=== PATIENT | female | born 1955 | race Hispanic/Latino ===

== ENCOUNTER 2016-11-10 15:07 | Inpatient (IN) | payer MEDICARE ==
[2016-11-10 15:14] VITALS: BMI 26.2
[2016-11-10] MEDS ORDERED: Morphine 4 mg/ml ISec IVP STA ×2 (15:53→17:51)
[2016-11-10] MEDS ORDERED: Sodium Chloride 0.9% 1,000 ML IV STA (15:53)
--- NOTE | 2016-11-10 15:59 | ED PDOC ---
Arrival/HPI - General Chief Complaint: Abdominal Pain Time Seen by Provider: 11/10/16 15:33 - History of Present Illness Narrative History of Present Illness (Text): 61 y/o F c PMHx MS, appendectomy, cholecystectomy, pancreatitis p/w abdominal pain x 1 day. Pain is epigastric/LUQ to L flank, severe, constant, radiating to L sided chest and back, associated with nausea. She states it does feel similar to previous pancreatitis. 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 She denies fever, vomiting, dyspnea, dysuria. Attempted Zantac and soda at home. She states that this is not her MS pain. 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 - Renal Hx Renal Disorder: No - Endocrine/Metabolic Hx Endocrine Disorders: No - Hematological/Oncological Hx Blood Transfusions: Yes Hx Blood Transfusion Reaction: No - Integumentary Hx Dermatological Disorder: No - Musculoskeletal/Rheumatological Hx Musculoskeletal Disorders: Yes Hx Back Pain: Yes - Gastrointestinal Hx Gastrointestinal Disorders: Yes Hx Pancreatitis: Yes (x3-4) Other/Comment: polyps removed. - Psychiatric Hx Emotional Abuse: No Hx Physical Abuse: No Hx Substance Use: No - Surgical History Hx Appendectomy: Yes Hx Cholecystectomy: Yes Other/Comment: polyps removed from stomach/intestines as per pt. - Anesthesia Hx Anesthesia: Yes Hx Anesthesia Reactions: No - Suicidal Assessment Feels Threatened In Home Enviroment: No Family/Social History Family/Social History: No Known Family HX Smoking Status: Former Smoker Hx Alcohol Use: No Hx Substance Use: No Allergies/Home Meds Allergies/Adverse Reactions: Allergies codeine Allergy (Verified 11/10/16 15:34) NAUSEA Penicillins Allergy (Verified 11/10/16 15:34) SWELLING Sulfa (Sulfonamide Antibiotics) Allergy (Verified 11/10/16 15:34) RASH Home Medications: Home Meds Medication Instructions Recorded Confirmed Calcitriol [Rocaltrol] 0.25 mcg PO DAILY 01/26/16 11/10/16 Cholecalciferol (Vitamin D3) 1 cap PO SAT 01/26/16 11/10/16 [Vitamin D3] Citalopram Hydrobromide [Celexa] 20 mg PO DAILY 01/26/16 11/10/16 Cyanocobalamin [Vitamin B12 1000 1,000 mcg PO DAILY 01/26/16 11/10/16 mcg Tab] Dextroamphetamine/Amphetamine 20 mg PO DAILY 01/26/16 11/10/16 [Adderall 20 mg Tablet] Iron Sucrose [Venofer] 100 mg IV Q7D 01/26/16 11/10/16 Lactobacillus Combination No.8 1 cap PO BID 01/26/16 11/10/16 [Adult Probiotic] Ranitidine HCl [Zantac] 150 mg PO DAILY 01/26/16 11/10/16 busPIRone [Buspar] 5 mg PO BID 01/26/16 11/10/16 oxyCODONE [oxyCONTIN Extended 40 mg PO BID 01/26/16 11/10/16 Release Tab] Polyethylene Glycol 3350 [Miralax] 1 pkt PO BID 01/28/16 11/10/16 oxyCODONE/Acetaminophen [Percocet 1 tab PO PRN PRN 11/10/16 11/10/16 5/325 mg Tab] Review of Systems - Physician Review All systems were reviewed & negative as marked: Yes - Review of Systems Constitutional: absent: Fevers Respiratory: absent: SOB Physical Exam - Physical Exam Narrative Physical Exam (Text): Constitutional: In acute distress secondary to pain. Head: Normocephalic. Atraumatic. Eyes: PERRL. ENT: Moist mucous membranes. Neck: Supple. Cardiovascular: Regular rate. Chest: No tenderness. Respiratory: Clear to auscultation bilaterally. GI: Soft. Epigastric/LUQ tenderness. Nondistended. No rebound. Back: No CVA tenderness. No midline tenderness. Musculoskeletal: No tenderness or swelling of extremities. Skin: No rash. Neurologic: Alert, no focal deficit. Vital Signs Temp Pulse Resp BP Pulse Ox 11/10/16 18:05 80 18 159/91 H 100 11/10/16 16:43 69 18 148/89 100 11/10/16 15:07 99.2 F 73 18 151/93 H 100 Medical Decision Making ED Course and Treatment: EKG NSR 77 bpm, no ST elevations, no T wave inversions. Will administer morphine (patient states no allergy), Zofran, IVF. Check labs, CT to assess for pancreatitis. Unlikely cardiac in origin. PMD [place]. 11/10/16 17:52 Continues to have pain. Morphine administered. Labs unremarkable. Pending CT. 11/10/16 18:42 IMPRESSION: 13 x 6.6 mm obstructing stone at the left ureteropelvic junction; cholecystectomy with dilated intra-and extrahepatic biliary ducts; constipation, fecalization of the distal and terminal ileum suggests a degree of obstruction secondary to constipation; possible enterocolitis Will trial toradol, 2 doses of morphine administered. This stone will not pass at this size. Patient with intractible pain. Dr. Onofre accepts patient to medical service. Dr. Bhatti accepts patient for consult. - Lab Interpretations Lab Results: 11/10/16 16:00 11/10/16 16:00 Lab Results 11/10/16 17:19: Urine Color Yellow, Urine Appearance Clear, Urine pH 6.0, Ur Specific Gem 1.015, Urine Protein Negative, Urine Glucose (UA) Negative, Urine Ketones Negative, Urine Blood Negative, Urine Nitrate Negative, Urine Bilirubin Negative, Urine Urobilinogen 0.2, Ur Leukocyte Esterase Negative 11/10/16 16:00: WBC 6.8, RBC 3.51, Hgb 10.5 L, Hct 32.1 L, MCV 91.5, MCH 29.9, MCHC 32.7, RDW 13.6, Plt Count 169, MPV 9.8, Gran % 90.3 H, Lymph % (Auto) 6.7 L , [place] % (Auto) 2.5, Eos % (Auto) 0.4 L, Baso % (Auto) 0.1, Gran # 6.15, Lymph # 0.5 L, [place] # 0.2, Eos # 0.0, Baso # 0.01 11/10/16 16:00: Sodium 135, Potassium 3.3 L, Chloride 101, Carbon Dioxide 25, Anion Gap 12, BUN 18, Creatinine 0.9, Est GFR ( Amer) > 60, Est GFR (Non- Af Amer) > 60, Random Glucose 115 H, Calcium 8.3 L, Total Bilirubin 0.6, AST 65 H, ALT 67 H, Alkaline Phosphatase 78, Lactate Dehydrogenase 573, Total Creatine Kinase 88, Troponin I < 0.01, Total Protein 6.0, Albumin 3.1, Globulin 2.9, Albumin/Globulin Ratio 1.1, Lipase 83 - RAD Interpretation Radiology Orders: 11/10/16 15:53 ABD & PELVIS IV CONTRAST ONLY [CT] Stat CHEST PORTABLE [RAD] Stat - Medication Orders Current Medication Orders: Discontinued Medications Sodium Chloride (Sodium Chloride 0.9%) 1,000 mls @ 999 mls/hr IV .Q1H1M STA Stop: 11/10/16 16:53 Last Admin: 11/10/16 16:05 Dose: 999 mls/hr Iohexol (Omnipaque 350 100 Ml) Confirm Administered Dose 350 mg .ROUTE .STK-MED ONE Stop: 11/10/16 17:29 Ketorolac Tromethamine (Toradol) 30 mg IVP STAT STA Stop: 11/10/16 18:51 Morphine Sulfate (Morphine) 4 mg IVP STAT STA Stop: 11/10/16 15:54 Last Admin: 11/10/16 16:08 Dose: 4 mg Morphine Sulfate (Morphine) 4 mg IVP STAT STA Stop: 11/10/16 17:52 Last Admin: 11/10/16 17:56 Dose: 4 mg Ondansetron HCl (Zofran Inj) 8 mg IVP STAT STA Stop: 11/10/16 15:54 Last Admin: 11/10/16 16:08 Dose: 8 mg Disposition/Present on Arrival - Present on Arrival Any Indicators Present on Arrival: No History of DVT/PE: No History of Uncontrolled Diabetes: No Urinary Catheter: No History of Decub. Ulcer: No History Surgical Site Infection Following: None - Disposition Have Diagnosis and Disposition been Completed?: Yes Diagnosis: Nephrolithiasis, Intractable pain Disposition: HOSPITALIZED Disposition Time: 18:42 Patient Plan: Admission Condition: FAIR Referrals: Brittany Wolff MD [Primary Care Provider] - Follow up with primary
[2016-11-10 16:10] LABS: ADD MANUAL DIFF? NO
[2016-11-10 16:28] LABS: BASO # 0.01 K/mm3 (0.0-2.0); BASO % 0.1 % (0.0-3.0); EOS % 0.4 % (1.5-5.0); GRAN # 6.15 (1.4-6.5); GRAN % 90.3 % (50.0-68.0); HEMATOCRIT 32.1 % (36.0-48.0); LYMPH # 0.5 (1.2-3.4); LYMPH % 6.7 % (22.0-35.0); MEAN CELL VOLUME 91.5 fL (80.0-105.0); MEAN CORPUSCULAR HEMOGLOBIN 29.9 pg (25.0-35.0); MEAN CORPUSCULAR HGB CONC 32.7 g/dl (31.0-37.0); MEAN PLATELET VOLUME 9.8 fl (7.0-11.0); MONO # 0.2 (0.1-0.6); MONO % 2.5 % (1.0-6.0); PLATELET COUNT 169 10^3/uL (120.0-450.0); RED CELL DISTRIBUTION WIDTH 13.6 % (11.5-14.5); WHITE BLOOD COUNT 6.8 10^3/ul (4.5-11.0)
[2016-11-10 16:41] LABS: ALB/GLOB RATIO 1.1 (1.1-1.8); ALKALINE PHOSPHATASE 78 U/L (38-133); ALT/SGPT 67 U/L (7-56); AST/SGOT 65 U/L (15-39); BILIRUBIN,TOTAL 0.6 mg/dL (0.2-1.3); BLOOD UREA NITROGEN 18 mg/dL (7-21); CALCIUM 8.3 mg/dL (8.4-10.5); CARBON DIOXIDE 25 mmol/L (21-33); CHLORIDE 101 mmol/L (98-107); GFR AFRICAN-AMERICAN > 60; GLUCOSE,RANDOM 115 mg/dL (70-110); LIPASE 83 U/L (23-300); POTASSIUM 3.3 mmol/L (3.6-5.0); SODIUM 135 mmol/L (132-148)
[2016-11-10 16:52] LABS: TROPONIN I < 0.01 ng/mL
[2016-11-10 17:25] LABS: URINE BILIRUBIN NEGATIVE (NEGATIVE); URINE BLOOD NEGATIVE (NEGATIVE); URINE GLUCOSE (UA) NEGATIVE (NEGATIVE); URINE KETONE NEGATIVE (NEGATIVE); URINE LEUKOCYTE ESTERASE NEGATIVE Leu/uL (NEGATIVE); URINE PROTEIN NEGATIVE mg/dL (<30 mg/dL); URINE UROBILINOGEN 0.2 E.U./dL (<1 E.U./dL)
[2016-11-10] MEDS ORDERED: Iohexol 350 MG/100 ML VIAL ONE (17:28)
[2016-11-10 17:32] LABS: URINE APPEARANCE CLEAR (CLEAR); URINE COLOR YELLOW (YELLOW)
--- NOTE | 2016-11-10 18:42 | CT ---
EXAM: CT Abdomen and Pelvis With Intravenous Contrast CLINICAL HISTORY: 61 years old, female; Pain; Abdominal pain; Flank; Left; Prior surgery; Surgery date: 6+ months; Surgery type: 2 bc-sections. Ap, gb, tubal ligation, colon resection; Additional info: Epigastric/luq pain, nausea TECHNIQUE: Axial computed tomography images of the abdomen and pelvis with intravenous contrast. This CT exam was performed using one or more of the following dose reduction techniques: automated exposure control, adjustment of the mA and/or kV according to patient size, and/or use of iterative reconstruction technique. Coronal and sagittal reformatted images were created and reviewed. CONTRAST: 95 mL of omni 350 administered intravenously. EXAM DATE/TIME: 11/10/2016 3:53 PM COMPARISON: There are no prior studies for comparison. FINDINGS: Lower thorax: unremarkable ABDOMEN: Liver: There is fatty infiltration of the liver. Gallbladder and bile ducts: Gallbladder is absent. The common bile duct is mildly dilated. There is mild intrahepatic biliary ductal dilatation Pancreas: Pancreas is mildly atrophic. Spleen: unremarkable Adrenals: Adrenals are unremarkable. Kidneys and ureters: Right kidney and ureter are unremarkable. There is a left renal cyst. There is a small low attenuation left upper pole renal lesion too small to characterize. There is obstructive uropathy on the left there is a 13 x 6.6 mm obstructing stone at the left ureteropelvic junction. Left ureter is normal in caliber. Stomach and bowel: Stomach is partially distended. Rotation is normal. Proximal small bowel is mildly distended with fluid. There are mildly dilated small bowel loops in the left mid abdomen with wall thickening. There is fecalization distal and terminal ileum. There is a very large amount of stool throughout the colon. There is a sigmoid colon anastomosis. There is rectal wall thickening. Appendix: See stomach and bowel PELVIS: Bladder: Urinary bladder is partially distended. Reproductive: Uterus is normal in size. There is a small enhancing nodule in the myometrium. Adnexa are unremarkable. ABDOMEN and PELVIS: Intraperitoneal space: There is no free air or free fluid. Bones/joints: Bony structures are osteopenic. There are degenerative changes Soft tissues: unremarkable Vasculature: Vascular structures are unremarkable. Lymph nodes: There is no pathologic adenopathy. Other findings: There are surgical clips in the epigastric region. IMPRESSION: 13 x 6.6 mm obstructing stone at the left ureteropelvic junction; cholecystectomy with dilated intra-and extrahepatic biliary ducts; constipation, fecalization of the distal and terminal ileum suggests a degree of obstruction secondary to constipation; possible enterocolitis Additional findings as described above.
[2016-11-10] MEDS ORDERED: Magnesium Citrate Oral SOL (300 ml) PO ONE (18:57)
[2016-11-10] MEDS ORDERED: HYDROmorphone 2 mg/ml ISec IVP PRN (18:57)
[2016-11-10] MEDS: Dextrose 5%/0.45% NS 1,000 ML IV SCH (19:19)
[2016-11-10 19:23] LABS: CHOLESTEROL 123 mg/dL (130-200)
--- NOTE | 2016-11-10 20:58 | HP ---
HISTORY OF PRESENT ILLNESS: The patient is a 61-year-old patient of who came to Emergency Room because of abdominal pain, more so in the left flank, radiating towards the left upper and left lower quadrant area. Pain is severe in intensity, radiating to the left side of the chest and going towards the back and right and left lower quadrant. She complained of feeling nauseous with decrease d appetite. The patient has a history of pancreatitis in the past, but she states this pain is diffe rent than that she had when she had pancreatitis. She denies any fever or chills. No history of hem aturia, does have increased frequency of urination. The patient states this pain started since last night. She tried to take Zantac with and took with no significant relief. PAST MEDICAL HISTORY: Is significant for: 1. Hypertension. 2. Multiple sclerosis. 3. 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 SURGICAL HISTORY: Significant for 1. Cholecystectomy and appendectomy in the remote past. 2. History of pancreatitis. ALLERGIES: SHE IS ALLERGIC TO CODEINE, PENICILLIN AND SULFA. MEDICATIONS AT HOME: She is on Percocet as needed and oxycodone. She is BuSpar. She is getting [place] tac and some MiraLAX. She takes Adderall once in a while and she is on Celexa 20 mg daily and vitami n D. SOCIAL HISTORY: She was a heavy smoker, but quit almost 20 years ago. Denies alcohol use. REVIEW OF SYSTEMS: Significant for discomfort in the left flank radiating to the left upper and lowe r quadrant area. PHYSICAL EXAMINATION: GENERAL: She is not in acute distress; however, looks uncomfortable. VITAL SIGNS: She is afebrile, pulse 73, respirations 18 and blood pressure 150/93. LUNGS: Bilateral fair airflow with no rhonchi or crackle. HEART: S1, S2 audible. No murmur. ABDOMEN: Soft. She has left costophrenic angle discomfort and left upper quadrant discomfort. NEUROLOGIC: She is awake, alert and communicative. LABORATORY DATA: WBC 6.8, hemoglobin , hematocrit 32.1 and platelets of 169. Chemistry: Sodiu m 135, potassium 3.3, chloride 101, CO2 25, BUN 18, creatinine 0.9, blood sugar of 115, calcium 8.3, AST 65 and ALT 67. Urinalysis is unremarkable. She had CT scan of the abdomen and pelvis done that shows she has 13 to 6.6 mm obstructing stone at t he left ureteropelvic junction, status post cholecystectomy and she also had dilated infra and extrah epatic biliary duct along with constipation and of distal suggesting a degree of obstruct ion secondary to constipation. ASSESSMENT: 1. Renal colic. 2. Constipation. 3. Multiple sclerosis. PLAN: Will keep patient n.p.o. for now and will keep her on her usual psych medication. Will keep h er on IV fluid, PPI and gentle hydration and Dr. Sheridan and Dr. Elise for consult. Rad Onofre MD cc: [phone] TT: 11/10/2016 20:58:14 sn
--- NOTE | 2016-11-10 22:22 | CARD ---
APPROVED REPORT EKG Measurement Heart [id number] MS [id number] <Conclusion> Normal sinus rhythm ST abnormality, possible digitalis effect Abnormal ECG
--- NOTE | 2016-11-11 08:40 | RAD ---
HISTORY: chest/L lateral rib pain COMPARISON: No prior. FINDINGS: LUNGS: No active pulmonary disease. PLEURA: No significant pleural effusion identified, no pneumothorax apparent. CARDIOVASCULAR: Mild cardiomegaly OSSEOUS STRUCTURES: No significant abnormalities. VISUALIZED UPPER ABDOMEN: Normal. OTHER FINDINGS: None. IMPRESSION: No active disease.
[2016-11-11] MEDS ORDERED: POLYETHYLENE GLYCOL 3350 17 GM/Dose PACKET PO SCH (10:00)
[2016-11-11] MEDS ORDERED: cefTRIAXone 1 gm 1 GM/100 ML BAG IVPB ONE (10:32)
[2016-11-11] MEDS ORDERED: HYDROmorphone 1 mg/ml ISec ONE (10:38)
[2016-11-11] MEDS ORDERED: Meropenem 1g/NS 100mL IVPB 1 GM/100 ML PIGGYBACK IVPB ONE (11:43)
[2016-11-11] MEDS ORDERED: Propofol 10 mg/ml Inj (20 ML) ONE (15:17)
[2016-11-11] MEDS ORDERED: Midazolam 2 MG/2 ML VIAL ONE (15:17)
[2016-11-11] MEDS ORDERED: Iohexol 240 (50 ml) ONE (15:18)
[2016-11-11] MEDS ORDERED: Gentamicin 80 mg/2mL Inj. ONE (15:34)
[2016-11-11] MEDS ORDERED: Ciprofloxacin 400mg/200ml D5W 400 MG/200 ML BAG IVPB ONE (15:41)
[2016-11-11] MEDS ORDERED: Phenylephrine 10 mg/ml Inj ONE (15:49)
[2016-11-11] MEDS ORDERED: ePHEDrine 50 mg/ml Inj ONE (16:02)
--- NOTE | 2016-11-11 18:22 | CON ---
DATE: 11/11/2016 REFERRING PHYSICIAN: Dr. Onofre. REASON FOR CONSULTATION: Possible sepsis. HISTORY OF PRESENT ILLNESS: We have a 61-year-old female with past medical history of chronic back pa in, history of pancreatitis, history of multiple sclerosis, who was sent in because of increasing lef t flank pain with radiation to the groin area associated with subjective fevers and chills for the pa st 3-4 days, worsening yesterday. As per patient, she has never had these symptoms before and this is the first time she is having them. Aside from fevers and chills, she was complaining of some nausea but no vomiting. She denies diarrhea and abdominal pain. She denies chest pain. No rhinorrhea or coug h. No shortness of breath. No sore throat. No dysphagia. No odynophagia. No diarrhea. No note of damian turia as well as dysuria. In the ED, when the patient presented she was found to have a fever as well as on imaging there was an obstructive stone found on the left side. Therefore, the patient was admi tted. Because of the fevers, infectious disease consult was requested to evaluate and manage. REVIEW OF SYSTEMS: As per history of present illness. PAST MEDICAL HISTORY: As per history of present illness. FAMILY MEDICAL HISTORY: Noncontributory. PERSONAL AND SOCIAL HISTORY: No smoking. No alcohol abuse. No illicit drug use. OBJECTIVE: VITAL SIGNS: The patient has a temperature of 109 degrees Fahrenheit, heart rate of 110, respiratory rate of 20, blood pressure 107/64. HEAD AND NECK: Normocephalic, atraumatic. CONSTITUTIONAL: The patient feels weak and fatigued and looks ill. CHEST: Decreased breath sounds bilaterally. No rales noted. HEART: S1 and S2 are normal. ABDOMEN: Soft, nontender, nondistended. FLANKS: There is positive CVA tenderness noted on the left flank. LABORATORIES: Unfortunately, we are unable to review the current labs of the patient because the comp uter systems and the EMR are down. ASSESSMENT: We have a 61-year-old female with past medical history of multiple sclerosis, chronic hema k pain, history of pancreatitis, coming in with possible sepsis due to urinary tract infection, which is on the upper tract, which is probably pyelonephritis, probably due to obstructive uropathy with a stone. PLAN: The patient was started on Rocephin but because the patient looks very ill, we have upgraded th e antibiotics to meropenem pending urine cultures and blood cultures and plan of urology for the ston e. We will follow up these results and make further recommendations based on these results. Nikos Chacon M.D. cc: [id number] TT: 11/11/2016 18:21:35 Confirmation # [id number] Dictation # [id number] ln
[2016-11-11] MEDS ORDERED: Meropenem 1g/NS 100mL IVPB 1 GM/100 ML PIGGYBACK IVPB SCH (22:00)
--- NOTE | 2016-11-11 22:10 | RAD ---
HISTORY: COMPARISON: No prior. FINDINGS: LUNGS: No active pulmonary disease. PLEURA: No significant pleural effusion identified, no pneumothorax apparent. CARDIOVASCULAR: Normal. OSSEOUS STRUCTURES: No significant abnormalities. VISUALIZED UPPER ABDOMEN: Normal. OTHER FINDINGS: None. IMPRESSION: No active disease.
[2016-11-12] MEDS ORDERED: Peg-Electrolyte Oral Soln 4L (Golytely) PO ONE (07:28)
--- NOTE | 2016-11-12 08:17 | CON ---
DATE: 11/11/2016 REQUESTING PHYSICIAN: Dr. Onofre. REASON FOR CONSULTATION: I have been asked to see this 61-year-old female with a history of multiple sclerosis, chronic back pain, chronic abdominal pain, who has been experiencing left flank pain radi ating to the left lower quadrant for 1 year. The patient states that this pain has become increasing ly severe over the last several days, prompting her to come to the Emergency Room. She denies any na usea, vomiting, rectal bleeding, melena. She does admit to some fevers and chills. In the Emergency Room, a CT scan of the abdomen and pelvis was performed and revealed a large left ureteropelvic ston e. She denies any hematuria. PAST MEDICAL HISTORY: Again, is notable for chronic back pain, multiple sclerosis, chronic abdominal pain. SOCIAL HISTORY: She denies cigarette smoking or alcohol use. FAMILY HISTORY: Noncontributory. REVIEW OF SYSTEMS: A 14-point review of systems is notable for chronic left flank pain, as well as l eft lower quadrant abdominal pain. PHYSICAL EXAMINATION: GENERAL: Well-developed female lying in bed in no acute distress. VITAL SIGNS: Temperature of 99.2, blood pressure 122/71, heart rate of 96. HEENT: Reveal sclerae to be white, conjunctivae pink. NECK: Supple. CHEST: Reveals lungs to be clear. HEART: Reveals regular rate and rhythm. ABDOMEN: Soft. There is mild to moderate tenderness in the left flank and left lower quadrant. No visible rashes seen. There is no palpable mass. EXTREMITIES: Show no edema. LABORATORY DATA: Reveal potassium of 3.3, otherwise normal electrolytes, AST 65, ALT 67. CBC reveal s white blood cell count 6.8, hemoglobin 10.5. CT scan of the abdomen and pelvis again shows a large left ureteropelvic stone, as well as a large amount of stool throughout the colon with some fecaliza tion of the distal small bowel. There is also some nonspecific dilatation of the small bowel loops. The gallbladder is absent from previous surgery with mildly dilated CBD and intrahepatic biliary colin ts, as well as fatty liver. IMPRESSION: A 61-year-old female with chronic low back pain, history of multiple sclerosis, with chr onic left flank pain and left lower quadrant abdominal pain with an obstructing large stone in the le ft ureteropelvic junction, as well as large amounts of stool throughout the colon, as well as fecaliz ation of the small bowel. RECOMMENDATIONS: 1. Will increase her MiraLax to 17 grams p.o. 3 times a day. 2. Urology evaluation for treatment of an obstructing kidney stone. 3. Elective colonoscopy once the patient gets cleaned out in terms of treatment of her severe consti pation. Omid Sheridan MD cc: [phone] TT: 11/12/2016 00:48:28 Confirmation # [id number] Dictation # [id number] mn
--- NOTE | 2016-11-12 08:27 | PN ---
DATE: 11/12/2016 SUBJECTIVE: The patient states that her abdominal pain is less. Despite receiving 10 ounces of citr ate of magnesia and 17 grams of MiraLax yesterday, she did not have a bowel movement. Her CT scan of the abdomen showed large amounts of stool throughout the colon as well as terminal small bowel. She has severe opioid-induced constipation. I suspect that this is causing some of her abdominal pain. She also has a left obstructing ureteropelvic stone. PHYSICAL EXAMINATION: VITAL SIGNS: Reveal temperature of 99, blood pressure 115/69, heart rate 94. HEENT: Revealed oral mucosa to be moist. NECK: Supple. CHEST: Reveals lungs to be clear. HEART: Reveals regular rate and rhythm. ABDOMEN: Soft, less left-sided tenderness. No rebound, no guarding. EXTREMITIES: Show no edema. LABORATORY DATA: Reveal no new labs. IMPRESSION: A 61-year-old female with chronic back pain, chronic abdominal pain, known multiple scle rosis with large amounts of stool throughout the colon on CAT scan. She is on clinical services consultant opiates for chronic back pain. She has opioid-induced constipation. RECOMMENDATIONS: 1. I will give the patient a half gallon of [employer] acquired by [employer] today. 2. Continue MiraLax 17 grams 3 times a day. 3. Dulcolax once a day. Omid Roge Sheridan MD cc: [phone] TT: 11/12/2016 08:26:12 Confirmation # [id number] Dictation # [id number] en
[2016-11-12 09:33] LABS: INR 1.32 (0.93-1.08)
[2016-11-12] MEDS ORDERED: cefTRIAXone 1 gm 1 GM/100 ML BAG IVPB SCH (10:00)
[2016-11-12] MEDS: Meropenem 1g/NS 100mL IVPB 1 GM/100 ML PIGGYBACK IVPB SCH ×2 (10:16→21:57)
[2016-11-12] MEDS: POLYETHYLENE GLYCOL 3350 17 GM/Dose PACKET PO SCH ×3 (10:17→17:31)
[2016-11-12 10:57] LABS: ALB/GLOB RATIO 0.9 (1.1-1.8); ALKALINE PHOSPHATASE 85 U/L (38-133); ALT/SGPT 78 U/L (7-56); AST/SGOT 135 U/L (15-39); BILIRUBIN,TOTAL 0.6 mg/dL (0.2-1.3); BLOOD UREA NITROGEN 19 mg/dL (7-21); CALCIUM 7.7 mg/dL (8.4-10.5); CARBON DIOXIDE 30 mmol/L (21-33); CHLORIDE 99 mmol/L (95-110); GFR AFRICAN-AMERICAN > 60; GLUCOSE,RANDOM 105 mg/dL (70-110); POTASSIUM 4.1 mmol/L (3.6-5.0); SODIUM 136 mmol/L (132-148); TOTAL PROTEIN 5.4 g/dL (5.8-8.3)
[2016-11-12] MEDS: Bisacodyl 5mg EC Tab PO SCH (11:58)
[2016-11-12 12:33] LABS: MEAN CELL VOLUME 91.2 fL (80.0-105.0); MEAN CORPUSCULAR HGB CONC 32.9 g/dl (31.0-37.0); MEAN PLATELET VOLUME 10.2 fl (7.0-11.0); RED CELL DISTRIBUTION WIDTH 14.2 % (11.5-14.5); WHITE BLOOD COUNT 13.3 10^3/ul (4.5-11.0)
--- NOTE | 2016-11-12 13:40 | RAD ---
PROCEDURE: Fluoroscopy up to 1 hour HISTORY: BILATERAL RETROGRADE / LEFT STENT INSERTION COMPARISON: TECHNIQUE: Fluoroscopy was provided in the operating room. 38 seconds of fluoroscopy time were utilized. Sixteen images were obtained. FINDINGS: The study was performed by Dr. Jareth Bhatti. Bilateral retrograde pyelograms. There is placement of a left ureteral stent. The right renal collecting system is unremarkable. IMPRESSION: As above
[2016-11-12 15:46] VITALS: RESP 20
[2016-11-12] MEDS: Dextrose 5%/0.45% NS 1,000 ML IV SCH (17:32)
--- NOTE | 2016-11-12 21:04 | PN ---
DATE: 11/12/2016 SUBJECTIVE: The patient has no complaints of any chest pain, no shortness of breath, no headaches. She says her pain is controlled after she had a stent placed. PHYSICAL EXAMINATION: VITAL SIGNS: Temperature is 98.2, pulse is 74, blood pressure is 111/72, respirations 20. GENERAL: The patient comfortable, in no acute distress. HEENT: Anicteric sclerae. Moist mucosa. NECK: No JVD or adenopathy. CARDIAC: S1/S2. No murmurs. No rubs. Regular. RESPIRATORY: Clear to auscultation bilaterally. No wheezes, rales, or rhonchi. Good air entry. ABDOMEN: Bowel sounds are positive, soft, nontender, and nondistended. EXTREMITIES: No edema. Has 1+ pulses. LABS: White count of 13.3, hemoglobin is 10.2, creatinine is 1.1. ASSESSMENT: 1. Nephrolithiasis, left ureteral stent placement. 2. Multiple sclerosis. 3. Chronic back pain. 4. Hypertension. 5. Urinary tract infection with gram-negative rods. 6. Sepsis. 7. Transaminitis. PLAN: The patient is currently comfortable. She is receiving BuSpar. She is on Celexa for her anxi ety. She is on IV fluids with D5 half normal saline. She is eating and drinking. At this point, I will discontinue the patient's IV fluids. The patient is receiving meropenem for antibiotics by Dr. Chacon. She is on Protonix. The patient has gram-negative rods in her urine. The patient is on Dilau did for pain. She is on Zofran. We will repeat the patient's blood work tomorrow. She is being fol lowed by urology, Dr. Bhatti. Eric Wasserman MD cc: [id number] TT: 11/12/2016 21:03:56 Confirmation # [id number] Dictation # [id number] yazmin
--- NOTE | 2016-11-12 22:23 | CP.PCM.PN ---
Subjective - Date & Time of Evaluation Date of Evaluation: 11/12/16 Time of Evaluation: 10:20 - Subjective Subjective: Comfortable, no fevers overnight, had stent placement yesterday into the left ureter. Objective - Vital Signs/Intake and Output Vital Signs (last 24 hours): Temp Pulse Resp BP Pulse Ox 98.2 F 74 20 111/72 97 11/12/16 15:46 11/12/16 15:46 11/12/16 15:46 11/12/16 15:46 11/12/16 15:46 Intake and Output: 11/12/16 11/13/16 18:59 06:59 Intake Total 680 540 Balance 680 540 - Medications Medications: Current Medications Acetaminophen (Tylenol 325mg Tab) 650 mg PO Q6H PRN PRN Reason: Fever >100.4 F Last Admin: 11/12/16 10:34 Dose: 650 mg Bisacodyl (Dulcolax) 5 mg PO ACL [facility] Last Admin: 11/12/16 11:58 Dose: 5 mg Buspirone HCl (Buspar) 5 mg PO BID [facility] PRN Reason: Protocol Last Admin: 11/12/16 17:31 Dose: 5 mg Citalopram Hydrobromide (Celexa) 20 mg PO DAILY [facility] Last Admin: 11/12/16 10:15 Dose: 20 mg Hydromorphone HCl (Dilaudid) 2 mg IVP Q4H PRN PRN Reason: Pain, moderate (4-7) Last Admin: 11/12/16 03:46 Dose: 2 mg Meropenem 1g/NS 100mL IVPB (Meropenem 1g/Ns 100ml Ivpb) 1 gm in 100 mls @ 100 mls/hr IVPB Q12 [facility] PRN Reason: Protocol Stop: 11/19/16 10:01 Last Admin: 11/12/16 21:57 Dose: 100 mls/hr Ondansetron HCl (Zofran Inj) 4 mg IVP Q6H PRN PRN Reason: Nausea/Vomiting Pantoprazole Sodium (Protonix Inj) 40 mg IVP DAILY [facility] Last Admin: 11/12/16 10:17 Dose: 40 mg Polyethylene Glycol (Miralax) 17 gm PO TID [facility] Last Admin: 11/12/16 17:31 Dose: 17 gm - Labs Labs: 11/11/16 07:00 11/11/16 07:00 PT 14.3 Seconds (9.9-11.8) H 11/11/16 07:00 INR 1.32 (0.93-1.08) H 11/11/16 07:00 - Constitutional Appears: Non-toxic, No Acute Distress - Head Exam Head Exam: NORMAL INSPECTION - Neck Exam Neck Exam: absent: Lymphadenopathy, Meningismus - Respiratory Exam Respiratory Exam: Decreased Breath Sounds - Cardiovascular Exam Cardiovascular Exam: +S1, +S2 - GI/Abdominal Exam GI & Abdominal Exam: Soft. absent: Tenderness Assessment and Plan - Assessment and Plan (Free Text) Plan: Assessment Consider upper urinary tract infection with gram negative bacilli associated with nephrolithiasis, S/P left ureter stent placement POD #1 multiple sclerosis S/P appendectomy S/P cholecystectomy history of pancreatitis Plan Continue merrem (Day 2) pending identification and sensitivities of the gram negative bacilli in the urine Will monitor clinically
--- NOTE | 2016-11-12 23:06 | CARD ---
APPROVED REPORT EKG Measurement Heart [id number] <Conclusion> Normal sinus rhythm Minimal voltage criteria for LVH, may be normal variant Inferior infarct, age undetermined Cannot rule out Anterior infarct, age undetermined Abnormal ECG
[2016-11-13 07:28] LABS: ADD MANUAL DIFF? NO
[2016-11-13 07:33] LABS: BASO # 0.01 K/mm3 (0.0-2.0); BASO % 0.1 % (0.0-3.0); EOS # 0.1 (0.0-0.7); EOS % 1.3 % (1.5-5.0); GRAN # 8.24 (1.4-6.5); GRAN % 81.9 % (50.0-68.0); HEMATOCRIT 25.6 % (36.0-48.0); LYMPH # 0.9 (1.2-3.4); LYMPH % 8.4 % (22.0-35.0); MEAN CELL VOLUME 88.6 fL (80.0-105.0); MEAN CORPUSCULAR HEMOGLOBIN 29.8 pg (25.0-35.0); MEAN CORPUSCULAR HGB CONC 33.6 g/dl (31.0-37.0); MEAN PLATELET VOLUME 11.1 fl (7.0-11.0); MONO # 0.8 (0.1-0.6); MONO % 8.3 % (1.0-6.0); PLATELET COUNT 97 10^3/uL (120.0-450.0); RED CELL DISTRIBUTION WIDTH 14.4 % (11.5-14.5); WHITE BLOOD COUNT 10.1 10^3/ul (4.5-11.0)
[2016-11-13 07:53] LABS: ALB/GLOB RATIO 0.9 (1.1-1.8); ALKALINE PHOSPHATASE 73 U/L (38-133); ALT/SGPT 63 U/L (7-56); AST/SGOT 44 U/L (15-39); BILIRUBIN,TOTAL 0.2 mg/dL (0.2-1.3); BLOOD UREA NITROGEN 20 mg/dL (7-21); CALCIUM 7.7 mg/dL (8.4-10.5); CARBON DIOXIDE 27 mmol/L (21-33); CHLORIDE 105 mmol/L (98-107); GFR AFRICAN-AMERICAN > 60; GLUCOSE,RANDOM 90 mg/dL (70-110); POTASSIUM 3.4 mmol/L (3.6-5.0); SODIUM 135 mmol/L (132-148); TOTAL PROTEIN 4.7 g/dL (5.8-8.3)
[2016-11-13] MEDS: Meropenem 1g/NS 100mL IVPB 1 GM/100 ML PIGGYBACK IVPB SCH (10:12)
[2016-11-13] MEDS: POLYETHYLENE GLYCOL 3350 17 GM/Dose PACKET PO SCH ×3 (10:13→17:47)
[2016-11-13] MEDS ORDERED: Magnesium Citrate Oral SOL (300 ml) PO ONE (11:23)
[2016-11-13] MEDS: Bisacodyl 5mg EC Tab PO SCH (12:25)
--- NOTE | 2016-11-13 12:51 | CP.PCM.PN ---
Subjective - Date & Time of Evaluation Date of Evaluation: 11/13/16 Time of Evaluation: 10:35 - Subjective Subjective: Patient is comfortable in bed, no fevers, no left flank pain currently. Objective - Vital Signs/Intake and Output Vital Signs (last 24 hours): Temp Pulse Resp BP Pulse Ox 99.3 F 78 20 113/70 96 11/13/16 09:38 11/13/16 09:38 11/13/16 09:38 11/13/16 09:38 11/13/16 09:38 Intake and Output: 11/13/16 11/13/16 06:59 18:59 Intake Total 540 Balance 540 - Medications Medications: Current Medications Acetaminophen (Tylenol 325mg Tab) 650 mg PO Q6H PRN PRN Reason: Fever >100.4 F Last Admin: 11/13/16 03:51 Dose: 650 mg Bisacodyl (Dulcolax) 5 mg PO ACL [facility] Last Admin: 11/13/16 12:25 Dose: 5 mg Buspirone HCl (Buspar) 5 mg PO BID [facility] PRN Reason: Protocol Last Admin: 11/13/16 10:11 Dose: 5 mg Citalopram Hydrobromide (Celexa) 20 mg PO DAILY [facility] Last Admin: 11/13/16 10:11 Dose: 20 mg Hydromorphone HCl (Dilaudid) 2 mg IVP Q4H PRN PRN Reason: Pain, moderate (4-7) Last Admin: 11/12/16 03:46 Dose: 2 mg Meropenem 1g/NS 100mL IVPB (Meropenem 1g/Ns 100ml Ivpb) 1 gm in 100 mls @ 100 mls/hr IVPB Q12 [facility] PRN Reason: Protocol Stop: 11/19/16 10:01 Last Admin: 11/13/16 10:12 Dose: 100 mls/hr Potassium Chloride (Potassium Chloride 10 Meq/100 Ml) 10 meq in 100 mls @ 100 mls/hr IVPB Q2H [facility] Stop: 11/13/16 14:44 Last Admin: 11/13/16 12:33 Dose: 100 mls/hr Ondansetron HCl (Zofran Inj) 4 mg IVP Q6H PRN PRN Reason: Nausea/Vomiting Pantoprazole Sodium (Protonix Inj) 40 mg IVP DAILY [facility] Last Admin: 11/13/16 10:12 Dose: 40 mg Polyethylene Glycol (Miralax) 17 gm PO TID [facility] Last Admin: 11/13/16 10:13 Dose: 17 gm - Labs Labs: 11/13/16 07:25 11/13/16 07:25 PT 14.3 Seconds (9.9-11.8) H 11/11/16 07:00 INR 1.32 (0.93-1.08) H 11/11/16 07:00 - Constitutional Appears: Non-toxic, No Acute Distress - Head Exam Head Exam: NORMAL INSPECTION - Respiratory Exam Respiratory Exam: Decreased Breath Sounds - Cardiovascular Exam Cardiovascular Exam: +S1, +S2 - GI/Abdominal Exam GI & Abdominal Exam: Soft. absent: Tenderness Assessment and Plan - Assessment and Plan (Free Text) Plan: Assessment Consider upper urinary tract infection with E. coli associated with nephrolithiasis, S/P left ureter stent placement POD #1 multiple sclerosis S/P appendectomy S/P cholecystectomy history of pancreatitis Plan on merrem (Day 3); when ready for discharge, the patient can be switched to PO Ciprofloxacin for another 7 days with outpatient follow up with Urology with PMD
--- NOTE | 2016-11-13 13:00 | PN ---
DATE: 11/13/2016 SUBJECTIVE: The patient is lying in bed, comfortable. She had a few bowel movements yesterday. She only drank approximately 12 ounces of the GoLYTELY, stating that she could not drink it due to the s alty nature of the GoLYTELY. She states that she does not feel like she is completely evacuated; how ever, she does admit that she feels better with no further abdominal pain. PHYSICAL EXAMINATION: VITAL SIGNS: Reveal temperature of 99.3, blood pressure 113/70, heart rate is 78. HEENT: Reveals sclerae to be white, conjunctivae pink. NECK: Supple. CHEST: Reveals lungs to be clear. HEART: Reveals a regular rate and rhythm. ABDOMEN: Softly distended, nontender, no mass. EXTREMITIES: Show no edema. LABORATORY DATA: Reveal hemoglobin of 8.6, white blood cell count 10.1. Chemistries reveal AST 44, ALT 63, potassium at 3.4. IMPRESSION: A 61-year-old female with chronic pain syndrome on chronic narcotic analgesics with pilot submersible dima abdominal pain, found to have increased stool throughout the colon and fecalization of the distal small bowel on CAT scan as well as a left ureteropelvic kidney stone. She is noncompliant with medi cations, including laxatives. I suspect that her abdominal pain is secondary to opioid-induced const ipation. RECOMMENDATIONS: 1. We will give the patient another dose of saturated magnesia 10 ounces now. 2. I stressed the importance of trying to take stool softeners and laxatives to prevent fecal impact ion. 3. Continue MiraLax 17 grams 3 times a day as well as Dulcolax tablets once a day. No further GI wo rkup is planned at this time. Once patient is adequately cleaned out, she will need a colonoscopy. Omid Sheridan MD cc: [phone] TT: 11/13/2016 12:59:18 Confirmation # [id number] Dictation # [id number]
[2016-11-13 16:21] VITALS: BP 111/72; PULSE 74; TEMP 98.2; O2SAT 97
--- NOTE | 2016-11-13 17:33 | RAD ---
HISTORY: follow up stones COMPARISON: CT abdomen/pelvis 11/10/2016 FINDINGS: BOWEL: Normal bowel gas pattern. Retained feces. Left ureteral stent. 1.4 cm ovoid calcification overlying lower pole left kidney. Previous left UPJ calculus may now be in lower pole of collecting system. Uncertain. BONES: Normal. OTHER FINDINGS: None. IMPRESSION: 1.4 cm calculus overlying lower pole left kidney. Retained feces. Left ureteral stent.
--- NOTE | 2016-11-14 11:59 | DS ---
The patient is a 61-year-old, seen and examined, lying in bed, seems to be comfortable, has some sore ness in the left flank, had a big bowel movement yesterday. PHYSICAL EXAMINATION: VITAL SIGNS: She is afebrile, pulse 74, respirations 20, blood pressure 111/72. LUNGS: Bilateral fair airflow, no rhonchi or crackle. HEART: S1, S2 audible. ABDOMEN: Soft, nontender, no rebound, no guarding. NEUROLOGIC: She is awake and alert, communicative, ambulatory. LABORATORY EXAMINATION: WBCs 10.1, hemoglobin 8.6, hematocrit 25.6, platelet of 97. Chemistry: Sod ium 135, potassium 3.4, chloride 105, CO2 27, BUN 20, creatinine 0.9, blood sugar of 90. Her AST is 44, ALT 63. Her urinalysis grew E. coli, sensitive to Cipro. ASSESSMENT: 1. Status post renal colic. 2. Fecal impaction. 3. Status post cystoscopy and stent placement. 4. Escherichia coli urinary tract infection. PLAN: The patient is clinically stable, cleared by Dr. Bhatti. We will send her home on Cipro 500 twice a day, Flomax 0.4 daily and she will continue her usual medication for multiple sclerosis and s he will also continue BuSpar, Celexa, and she will follow with her PMD as outpatient. Rad Onofre MD cc: [phone] TT: 11/14/2016 11:58:38 en
--- NOTE | 2016-11-23 09:00 | OP ---
PROCEDURE DATE: 11/11/2016 POSTOPERATIVE DIAGNOSES: Urolithiasis, severe renal colic, hydronephrosis. POSTOPERATIVE DIAGNOSES: Urolithiasis, severe renal colic, hydronephrosis. PROCEDURES: Exam under anesthesia, cystoscopy, retrograde pyelogram on the left side, insertion of a left Double-J stent. COMPLICATIONS: There were none. BLOOD LOSS: Less than 10 mL. See the history and physical, the consultation for further details. This is a very pleasant lady who presents with severe renal colic. We discussed the various options with the patient, risks, benefits and treatment alternatives. After discussing them, she is here for the above procedure. The patient was brought to the operating room and placed on the table. Timeouts were called to confi rm the patient and positioning. The patient was placed on the table. Once we confirmed the patient and positioning, etc., we began the procedure. The patient was also given antibiotic prophylaxis. Cystoscope via the urethra. The bladder inspected carefully. There are no bladder tumors identified. A left ureteral orifice identified. Left retrograde pyelogram was performed. A wire is passed up to the kidney. A left Double-J stent is inserted without difficulty. Overall, patient tolerated procedure well without complication. ADDENDUM: The subsequent plans are to follow. We are planning for treatment for her stone, depending on her availability. I will treat as quickly as possible. Jareth Bhatti MD cc: [phone] TT: 11/23/2016 09:00:42 en
--- NOTE | 2016-11-29 10:12 | OP ---
PROCEDURE DATE: 11/11/2016 PREOPERATIVE DIAGNOSES: Severe renal colic, hydronephrosis, urolithiasis, hematuria. POSTOPERATIVE DIAGNOSES: Severe renal colic, hydronephrosis, urolithiasis, hematuria. PROCEDURE: Exam under anesthesia, cystoscopy, bilateral retrograde pyelogram, insertion of a left Do uble-J stent. COMPLICATIONS: There were none. FINDINGS: A distal ureteral stone and hydronephrosis. No bladder lesions. No other pelvic or rectal masses. INDICATIONS: See history and physical for further details, consultations. An extremely pleasant lady, 61 years old, multiple medical issues and also multiple social issues. Presented with severe renal colic. We discussed multiple issues. A very pleasant lady who I just me t initially by phone. She presented here yesterday to the hospital and I have discussed options with the patient. After discussing those options with the patient, she is here for the above listed proc edure with ongoing severe renal colic with her stone. We discussed options and we are here to place a stent. PROCEDURE ITSELF: After obtaining informed consent, the patient was placed on the table, routine mon itoring placed, timeouts were called to confirm the patient and positioning. The cystoscope via the urethra. The ureteral orifices identified bilaterally. Retrograde pyelograms are performed. The patient has underlying hematuria. Just to confirm, there are no other abnormalities. At this point, we identified what looks like a stone filling, stone defect and hydro. Retrograde pyelogram was performed on the left side. A wire is passed up to the kidney. A left Doub le-J stent is deployed. The patient tolerated the procedure well without complication. ADDENDUM: Our subsequent plans will be for a shockwave lithotripsy and then further plans will andre jaimes. Jareth Bhatti MD cc: [phone] TT: 11/29/2016 10:11:15 en
--- NOTE | 2017-01-28 15:00 | PN ---
DATE: UROLOGY POSTOP NOTE Please see history and physical, consultation note and operative report for further details. The patient is currently resting on the gurney. The diagnosis is urolithiasis, voiding dysfunction, hematuria and flank pain. The procedure was uncomplicated. See the doctor dictated note, this is in a separate note. Vital signs are currently within normal limits. The diagnosis is urolithiasis. The plan is as follows: Routine postop care. The patient remained stable. Jareth Bhatti MD
== END 2016-11-13 18:42 | disposition home or self-care (01) | DRG 872 ==
LOC: ED 15:07 → ERH 18:51 → 5RNO 21:49 → 5RSO 11-12 10:29
PROVIDERS: ADMIT Internal Medicine; ATTEND Internal Medicine
PROC: BT1F1ZZ Fluoroscopy of Left Kidney, Ureter and Bladder using Low Osmolar Contrast (ICD-10-PCS; 2016-11-11)
PROC: 0T778DZ Dilation of Left Ureter with Intraluminal Device, Via Natural or Artificial Opening Endoscopic (ICD-10-PCS; principal; 2016-11-11 16:00)
DX: A41.9 Sepsis, unspecified organism (principal); N39.0 Urinary tract infection, site not specified; N13.2 Hydronephrosis with renal and ureteral calculous obstruction; G35 Multiple sclerosis; I10 Essential (primary) hypertension; K56.41 Fecal impaction; B96.20 Unspecified Escherichia coli [E. coli] as the cause of diseases classified elsewhere; K59.03 Drug induced constipation; T40.2X5A Adverse effect of other opioids, initial encounter; D86.89 Sarcoidosis of other sites; F41.9 Anxiety disorder, unspecified; M54.9 Dorsalgia, unspecified; G89.4 Chronic pain syndrome; Z91.14 Patient's other noncompliance with medication regimen; Z79.891 Long term (current) use of opiate analgesic; Z87.891 Personal history of nicotine dependence; Z88.0 Allergy status to penicillin; Z88.2 Allergy status to sulfonamides

== ENCOUNTER 2017-04-17 01:34 | Inpatient (IN) | payer MEDICARE, OTHER ==
[2017-04-17 01:49] VITALS: BMI 30.2
--- NOTE | 2017-04-17 01:59 | ED PDOC ---
Arrival/HPI - General Chief Complaint: Shortness Of Breath Time Seen by Provider: 04/17/17 01:50 Historian: Patient - History of Present Illness Narrative History of Present Illness (Text): 04/17/17 01:59 Rachelle Mclaughlin is a 62 year old female, whose past medical history includes anemia, hypertension, multiple sclerosis, sarcoidosis, pancreatitis, and left ureteral stent, who presents to the emergency department complaining of weakness. Patient states she has been experiencing generalized weakness and exertional shortness of breath for the past few days. Patient also reports worsening swelling to bilateral upper and lower extremities. Patient denies any fever, chills, chest pain, abdominal pain, nausea, vomiting, diarrhea, urinary symptoms, back pain, neck pain, headache, dizziness, or any other complaints. PMD: Dr. Wolff Urology: Dr. Bhatti Symptom Onset: Gradual Symptom Course: Unchanged Activities at Onset: Light Context: Home Past Medical History - Provider Review Nursing Documentation Reviewed: Yes - Infectious Disease Hx of Infectious Diseases: None - Cardiac Hx Pacemaker: No - Pulmonary Hx Respiratory Disorders: No - Neurological Hx Multiple Sclerosis: Yes Hx Paralysis: No - HEENT Hx HEENT Disorder: No Other/Comment: 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 - Renal Hx Renal Disorder: No Hx Kidney Stones: Yes - Endocrine/Metabolic Hx Endocrine Disorders: No Hx Hyperthyroidism: Yes - Hematological/Oncological Hx Anemia: Yes - Integumentary Hx Dermatological Disorder: No - Musculoskeletal/Rheumatological Hx Arthritis: Yes Hx Falls: No - Gastrointestinal Hx Gastrointestinal Disorders: Yes Hx Pancreatitis: Yes (x3-4) Other/Comment: polyps removed. - Psychiatric Hx Anxiety: Yes Hx Emotional Abuse: No Hx Physical Abuse: No Hx Substance Use: No - Surgical History Hx Appendectomy: Yes Hx Cholecystectomy: Yes Other/Comment: polyps removed from stomach/intestines as per pt. - Anesthesia Hx Anesthesia: Yes Hx Anesthesia Reactions: No - Suicidal Assessment Feels Threatened In Home Enviroment: No Family/Social History - Physician Review Nursing Documentation Reviewed: Yes Family/Social History: Unknown Family HX Smoking Status: Former Smoker Hx Alcohol Use: No Hx Substance Use: No Allergies/Home Meds Allergies/Adverse Reactions: Allergies codeine Allergy (Verified 11/10/16 15:34) NAUSEA Penicillins Allergy (Verified 11/10/16 15:34) SWELLING Sulfa (Sulfonamide Antibiotics) Allergy (Verified 11/10/16 15:34) RASH Home Medications: Home Meds Medication Instructions Recorded Confirmed Cholecalciferol (Vitamin D3) 1 cap PO SAT 01/26/16 04/17/17 [Vitamin D3] Citalopram Hydrobromide [Celexa] 20 mg PO DAILY 01/26/16 04/17/17 Cyanocobalamin [Vitamin B12 1000 1,000 mcg SQ Q30D 01/26/16 04/17/17 mcg Tab] Lactobacillus Combination No.8 1 cap PO DAILY 01/26/16 04/17/17 [Adult Probiotic] busPIRone [Buspar] 7.5 mg PO DAILY 01/26/16 04/17/17 oxyCODONE [oxyCONTIN Extended 40 mg PO Q12 01/26/16 04/17/17 Release Tab] Biotin 10,000 mcg PO DAILY 02/02/17 04/17/17 Furosemide [Lasix] 40 mg PO BID 02/02/17 04/17/17 Gabapentin [Neurontin] 300 mg PO DAILY 02/02/17 04/17/17 Home Med 20 mg PO PRN PRN 02/02/17 04/17/17 Loratadine [Claritin] 10 mg PO DAILY 02/02/17 04/17/17 Meloxicam [Mobic] 7.5 mg PO DAILY 02/02/17 04/17/17 Potassium Chloride [K-Dur 20] 20 meq PO DAILY 02/02/17 04/17/17 Ubidecarenone/Vit E Acet [Co Q-10 200 mg PO DAILY 02/02/17 04/17/17 100 mg Softgel] Review of Systems - Physician Review All systems were reviewed & negative as marked: Yes - Review of Systems Constitutional: Other (+generalized weakness). absent: Fevers Eyes: Normal ENT: Normal Respiratory: SOB Gastrointestinal: Normal. absent: Abdominal Pain, Diarrhea, Nausea, Vomiting Genitourinary Female: Normal. absent: Dysuria, Frequency, Hematuria, Urine Output Changes Musculoskeletal: Other (+swelling) Skin: Other (pale) Neurological: Normal Endocrine: Normal Hemo/Lymphatic: Normal Psychiatric: Normal Physical Exam Vital Signs Reviewed: Yes Vital Signs Temp Pulse Resp BP Pulse Ox 04/17/17 06:30 97.6 F 59 L 16 123/67 04/17/17 06:14 97.7 F 75 16 123/72 04/17/17 06:05 97.7 F 75 16 123/72 96 04/17/17 04:41 70 20 112/61 100 04/17/17 01:50 98.1 F 80 20 123/71 100 04/17/17 01:48 20 Temperature: Afebrile Blood Pressure: Normal Pulse: Regular Respiratory Rate: Normal Appearance: Positive for: Well-Appearing, Non-Toxic, Comfortable Pain Distress: None Mental Status: Positive for: Alert and Oriented X 3 - Systems Exam Head: Present: Atraumatic, Normocephalic Pupils: Present: PERRL Extroacular Muscles: Present: EOMI Conjunctiva: Present: Other (pale) Mouth: Present: Moist Mucous Membranes Neck: Present: Normal Range of Motion Respiratory/Chest: Present: Clear to Auscultation, Good Air Exchange. No: Respiratory Distress, Accessory Muscle Use Cardiovascular: Present: Regular Rate and Rhythm, Normal S1, S2. No: Murmurs Abdomen: Present: Normal Bowel Sounds. No: Tenderness, Distention, Peritoneal Signs Upper Extremity: Present: Edema (Edematous swelling to left arm, acute on chronic). No: Cyanosis Lower Extremity: Present: Edema (Edematous swelling to bilateral lower extremities, acute on chronic). No: Cyanosis Neurological: Present: GCS=15, CN II-XII Intact, Speech Normal, Motor Func Grossly Intact, Normal Sensory Function Skin: Present: Warm, Dry, Pale. No: Rashes Psychiatric: Present: Alert, Oriented x 3, Normal Insight, Normal Concentration Medical Decision Making ED Course and Treatment: 04/17/17 01:59 Impression: 62 year old female complaining of generalized weakness, exertional shortness of breath, and bilateral upper and lower extremity swelling. Plan: -- EKG -- CXR -- Labs, cardiac enzymes, BNP, blood type and screen -- US Duplex Lower Extremities -- US Duplex Upper Extremities -- Reassess and disposition Progress Notes: Reviewed EKG, NSR at 77 bpm. Occasional PAC. Inferior infarct. Non-specific ST/ T wave changes. 04/17/17 03:17 Reviewed radiology, CXR shows no acute processes. 04/17/17 03:22 Reviewed sono, US Duplex Lower Extremities shows no acute processes. US Duplex Upper Extremities shows no acute processes. 04/17/17 05:19 Reviewed labs, hgb: 7.0, hct: 21.3, will transfuse pt. Case discussed with Dr. Wasserman, covering for Dr. Onofre, who is aware and agrees with plan. Pt will be admitted to remote telemetry for anemia and dyspnea on exertion under Dr. Onofre's service. Requests Dr. Borden and Dr. Bhatti on consult. - Critical Care Critical Care Minutes: 30 minutes - Lab Interpretations Lab Results: 04/17/17 02:10 04/17/17 02:10 Lab Results 04/17/17 03:30: Blood Type Confirm A NEGATIVE 04/17/17 02:10: Blood Type A NEGATIVE, Antibody Screen Negative, Crossmatch See Detail, BBK History Checked No verified bt 04/17/17 02:10: WBC 5.2 D, RBC 2.48 L, Hgb 7.0 L, Hct 21.3 L, MCV 85.9, MCH 28.2, MCHC 32.9, RDW 19.2 H, Plt Count 243, MPV 9.2 04/17/17 02:10: Sodium 137, Potassium 3.7, Chloride 110 H, Carbon Dioxide 27, Anion Gap 4 L, BUN 19, Creatinine 0.8, Est GFR ( Amer) > 60, Est GFR (Non -Af Amer) > 60, Random Glucose 85, Calcium 7.2 L, Total Bilirubin < 0.1 L, AST 36, ALT 58 H, Alkaline Phosphatase 73, Lactate Dehydrogenase 689, Total Creatine Kinase 116, Troponin I < 0.01, NT-Pro-B Natriuret Pep 144, Total Protein 4.2 L, Albumin 1.8 L, Globulin 2.4, Albumin/Globulin Ratio 0.8 L 04/17/17 02:10: PT 12.8 H, INR 1.17 H, APTT 27.4 I have reviewed the lab results: Yes - RAD Interpretation Radiology Orders: 04/17/17 02:04 CHEST PORTABLE [RAD] Stat 04/17/17 02:09 DUPLEX LOWER EXTRM VEIN BILAT [US] Stat DUPLEX UPPER EXTRM VEIN LEFT [US] Stat Mobility Architect Manager: ED Physician - EKG Interpretation Interpreted by ED Physician: Yes Type: 12 lead EKG - Medication Orders Current Medication Orders: Buspirone HCl (Buspar) 7.5 mg PO DAILY [facility] PRN Reason: Protocol Last Admin: 04/17/17 10:23 Dose: 7.5 mg Citalopram Hydrobromide (Celexa) 20 mg PO DAILY [facility] Last Admin: 04/17/17 10:24 Dose: 20 mg Gabapentin (Neurontin) 300 mg PO DAILY [facility] Last Admin: 04/17/17 10:24 Dose: 300 mg Behavioural Document 04/17/17 10:24 SML (Rec: 04/17/17 10:25 SML [id number]) Maintenance Maintenance Dose Yes Loratadine (Claritin) 10 mg PO DAILY [facility] Last Admin: 04/17/17 10:25 Dose: 10 mg Oxycodone HCl (Oxycontin Extended Release Tab) 40 mg PO Q12 [facility] Last Admin: 04/17/17 10:22 Dose: 40 mg MAR Pain Assessment Document 04/17/17 10:22 SML (Rec: 04/17/17 10:22 SML [id number]) Pain Reassessment Is this a pain reassessment? No Sleep Is patient sleeping during reassessment? No Location Pain Location Body Site Generalized Discontinued Medications Oxycodone/Acetaminophen (Percocet 5/325 Mg Tab) 1 tab PO STAT STA Stop: 04/17/17 06:45 Last Admin: 04/17/17 06:56 Dose: 1 tab MAR Pain Assessment Document 04/17/17 06:56 OCS (Rec: 04/17/17 06:56 OCS [id number]) Pain Reassessment Is this a pain reassessment? Yes Sleep Is patient sleeping during reassessment? No Presence of Pain Presence of Pain Yes Pain Scale Used Pain Scale Used Numeric Location Left, Right or Bilateral Bilateral Pain Location Body Site Leg Description Description Constant Intensity of Pain at present 10 Pain Behavior Moaning - Scribe Statement The provider has reviewed the documentation as recorded by the Scribe Josey Holden All medical record entries made by the Scribe were at my direction and personally dictated by me. I have reviewed the chart and agree that the record accurately reflects my personal performance of the history, physical exam, medical decision making, and the department course for this patient. I have also personally directed, reviewed, and agree with the discharge instructions and disposition. Disposition/Present on Arrival - Present on Arrival Any Indicators Present on Arrival: No History of DVT/PE: No History of Uncontrolled Diabetes: No Urinary Catheter: No History of Decub. Ulcer: No History Surgical Site Infection Following: None - Disposition Have Diagnosis and Disposition been Completed?: Yes Diagnosis: Anemia, Extremity edema Disposition: HOME/ ROUTINE Disposition Time: 05:34 Patient Plan: Admission Patient Problems: Current Active Problems Problem Status Onset Anemia Acute Extremity edema Acute Condition: STABLE
[2017-04-17 02:22] LABS: MEAN CELL VOLUME 85.9 fl (80.0-105.0); MEAN CORPUSCULAR HEMOGLOBIN 28.2 pg (25.0-35.0); MEAN CORPUSCULAR HGB CONC 32.9 g/dl (31.0-37.0); MEAN PLATELET VOLUME 9.2 fl (7.0-11.0); RED CELL DISTRIBUTION WIDTH 19.2 % (11.5-14.5); WHITE BLOOD COUNT 5.2 10^3/ul (4.5-11.0)
[2017-04-17 02:26] LABS: HEMATOCRIT 21.3 % (36.0-48.0)
[2017-04-17 02:34] LABS: ALB/GLOB RATIO 0.8 (1.1-1.8); ALKALINE PHOSPHATASE 73 U/L (38-126); ALT/SGPT 58 U/L (7-56); AST/SGOT 36 U/L (14-36); BLOOD UREA NITROGEN 19 mg/dL (7-21); CALCIUM 7.2 mg/dL (8.4-10.5); CARBON DIOXIDE 27 mmol/L (21-33); CHLORIDE 110 mmol/L (98-107); GFR AFRICAN-AMERICAN > 60; GLUCOSE,RANDOM 85 mg/dL (70-110); POTASSIUM 3.7 mmol/L (3.6-5.0); SODIUM 137 mmol/L (132-148); TOTAL PROTEIN 4.2 g/dL (5.8-8.3)
[2017-04-17 02:36] LABS: INR 1.17 (0.93-1.08); PARTIAL THROMBOPLASTIN TIME 27.4 Seconds (25.1-36.5)
[2017-04-17 04:01] LABS: BILIRUBIN,TOTAL < 0.1 mg/dL (0.2-1.3); TROPONIN I < 0.01 ng/mL
[2017-04-17] MEDS ORDERED: Oxycodone/Acetaminophen 5/325 mg Tab PO STA (06:44)
--- NOTE | 2017-04-17 07:53 | US ---
PROCEDURE: Left upper extremity venous ultrasound HISTORY: Arm pain and swelling. Evaluate for deep venous thrombosis. PHYSICIAN(S): Kamlesh Ayers MD. FINDINGS: The images are labeled right upper extremity - however the requisition and preliminary notation notes a left upper extremity The visualized leftinternal jugular vein is sonographically normal and compressible. No evidence of obstruction or thrombus is seen. The visualized segments of the left subclavian vein are patent with normal waveforms. No sonographic evidence of obstruction or thrombosis is seen. The visualized deep venous system of the proximal leftupper extremity is sonographically normal and compressible. IMPRESSION: 1. No sonographic evidence for deep venous thrombosis in the visualized segments of the left upper extremity. 2. The images were labeled right upper extremity. The requisition and preliminary notes state left upper extremity. This needs to be clarified
--- NOTE | 2017-04-17 07:54 | US ---
HISTORY: Leg pain and swelling. Evaluate for DVT PHYSICIAN(S): Kamlesh Ayers MD. TECHNIQUE: Duplex sonography and color-flow Doppler with graded compression were used to evaluate the deep venous systems of both lower extremities. The exam is very limited by body habitus and edema. The lower femoral veins and tibial veins are not well seen. FINDINGS: The visualized deep venous systems of both lower extremities are sonographically normal and compressible. Normal wave forms and augmentation are seen. There is no sonographic evidence for deep venous thrombosis in the visualized segments of both lower extremities. IMPRESSION: No sonographic evidence for deep venous thrombosis in the visualized segments of both lower extremities. Very limited study.
[2017-04-17] MEDS: oxyCODONE 20 mg ER Tab (oxyCONTIN) PO SCH ×2 (10:22→21:46)
--- NOTE | 2017-04-17 10:41 | RAD ---
HISTORY: fever COMPARISON: 11/11/2016 FINDINGS: LUNGS: No active pulmonary disease. PLEURA: No significant pleural effusion identified, no pneumothorax apparent. CARDIOVASCULAR: Normal. OSSEOUS STRUCTURES: No significant abnormalities. VISUALIZED UPPER ABDOMEN: Normal. OTHER FINDINGS: None. IMPRESSION: No active disease.
--- NOTE | 2017-04-17 20:59 | CARD ---
APPROVED REPORT EKG Measurement Heart [id number] <Conclusion> Sinus rhythm with premature atrial complexes Low voltage QRS Inferior infarct, age undetermined Possible Anterolateral infarct, age undetermined Abnormal ECG
[2017-04-18 05:46] LABS: HEMATOCRIT 28.1 % (36.0-48.0); MEAN CELL VOLUME 87.5 fl (80.0-105.0); MEAN CORPUSCULAR HGB CONC 33.1 g/dl (31.0-37.0); MEAN PLATELET VOLUME 9.6 fl (7.0-11.0); RED CELL DISTRIBUTION WIDTH 17.7 % (11.5-14.5); WHITE BLOOD COUNT 4.6 10^3/ul (4.5-11.0)
[2017-04-18 06:44] LABS: ALB/GLOB RATIO 0.7 (1.1-1.8); ALKALINE PHOSPHATASE 65 U/L (38-126); ALT/SGPT 49 U/L (7-56); AST/SGOT 33 U/L (14-36); BILIRUBIN,TOTAL 0.1 mg/dL (0.2-1.3); BLOOD UREA NITROGEN 15 mg/dL (7-21); CALCIUM 7.4 mg/dL (8.4-10.5); CARBON DIOXIDE 25 mmol/L (21-33); CHLORIDE 113 mmol/L (98-107); GFR AFRICAN-AMERICAN > 60; GLUCOSE,RANDOM 82 mg/dL (70-110); POTASSIUM 3.8 mmol/L (3.6-5.0); SODIUM 139 mmol/L (132-148)
[2017-04-18] MEDS: oxyCODONE 20 mg ER Tab (oxyCONTIN) PO SCH ×2 (09:21→21:56)
--- NOTE | 2017-04-18 09:31 | HP ---
HISTORY OF PRESENT ILLNESS: This is a 62-year-old female, who is coming into the hospital complaining of shortness of breath with exertion. She has anemia, has been followed by Hematology with Dr. Guo. She has hypertension, multiple sclerosis, sarcoidosis, and she also had a history of nephrolithiasis and has a left ureteral stent that was placed by Dr. Bhatti. The patient has been complaining of significant weakness and has difficulty with ambulating because of shortness of breath with minimal exertion. She was found to have significant anemia and so was admitted to the hospital for further evaluation. She also is complaining of swelling in the left arm. She has no abdominal pain, no back pain, no dysuria or frequency, no black tarry stools. She does not have any dizziness. PAST MEDICAL HISTORY: As above. PAST SURGICAL HISTORY: Cholecystectomy and appendectomy. FAMILY HISTORY: Noncontributory. SOCIAL HISTORY: She is a heavy smoker, but quit 20 years ago. Denies alcohol. REVIEW OF SYSTEMS: All of the review of symptoms are within normal limits except as mentioned. ALLERGIES: ALLERGIES TO CODEINE, PENICILLIN, AND SULFA. HOME MEDICATIONS: Celexa, vitamin D, lactobacillus, BuSpar, oxycodone, Biotin, Lasix, Neurontin, Claritin, Mobic, and potassium. PHYSICAL EXAMINATION VITAL SIGNS: Temperature 97.8, pulse 63, blood pressure 122/77, respirations 18, height is 4 feet 11 inches, weight 150 pounds, and BMI is 30.3. GENERAL: The patient lying in bed, uncomfortable, and in no acute distress. HEENT: Atraumatic and normocephalic. Anicteric sclerae. Moist mucosa. [place] conjunctivae. No oral lesions. NECK: No JVD, anterior and posterior adenopathy, thyromegaly, or bruits. CARDIOVASCULAR: S1 and S2 regular. No murmur, rubs, or gallop. LUNGS: Clear to auscultation bilaterally. No wheezes, rales, or rhonchi. ABDOMEN: Bowel sounds are positive. Soft, nontender and nondistended. No hepatosplenomegaly. No rebound and no guarding. EXTREMITIES: No cyanosis or clubbing and in the left arm there is 1+ edema. NEUROLOGIC: No facial asymmetry. Tongue is midline. No uvula deviation. Power is 5/5 upper extremity and lower extremity. Sensation intact in upper extremity and lower extremity. PSYCHIATRIC: She is awake, alert and oriented x3. No anxiety or depression. She has normal affect. GENITOURINARY: No CVA tenderness. VASCULAR: 2+ pulses in the carotid pulses and pedal pulses. SKIN: No erythema or nodules. SPINE: Shows normal curvature. LABORATORY DATA: White count of 5.2, hemoglobin 7.0, platelet count is 243, and INR is 1.1. Sodium 137, potassium 3.7, creatinine 0.8, troponin is 0.01, albumin is 1.8. Doppler studies of the legs is limited that shows no signs of DVT. Doppler of left leg shows no evidence of DVT. This is supposed to be to the left arm. Chest x-ray done shows no active disease. EKG shows heart rate of 77, sinus rhythm. QTC is 362. ASSESSMENT: 1. Acute anemia of unknown etiology. 2. Nephrolithiasis. 3. Constipation. 4. Multiple sclerosis. 5. Anxiety. 6. Sarcoidosis. 7. Hypertension. PLAN: The patient is going to be admitted to the hospital. She is going to be given transfusion. I will get Dr. Guo to evaluate the patient and also Dr. Bhatti. The patient is on loratadine. She is going to continue with Neurontin for neuropathy. She is on BuSpar. The patient is on Percocet. She is on OxyContin for pain. This will be continued. She is on heart healthy diet. She is also going to need physical therapy. I will add that as well. We will repeat her blood work tomorrow. Eric Wasserman MD
[2017-04-18] MEDS: Potassium Chloride 10 mEq ER Tab PO SCH (13:22)
--- NOTE | 2017-04-18 15:01 | PN ---
DATE: 04/18/2017 SUBJECTIVE: The patient is a 62-year-old white female with very complicated chronic illness history including sarcoidosis and multiple sclerosis. The patient was on different MS medications, but states nothing agreed with her, currently all MS medications are on hold; however, she does have history of sarcoidosis. For that, she has some right visual field defect, the cataract , still cannot see well. The patient lately has been having left flank pain, for that she was diagnosed with nephrolithiasis, Dr. Bhatti did lithotripsy and had stent placed in September. The patient states she has episode of UTI and looking for Dr. Bhatti's evaluation and possible removal of stent that was placed in September. The patient states she has been extremely weak and tired with bilateral leg swelling, so she told Dr. Wolff who has advised her to come to emergency room for further evaluation. PHYSICAL EXAMINATION: GENERAL: Today; she is awake, alert, and oriented and looks pale and tired. VITAL SIGNS: She is afebrile, pulse 60, respirations 20, and blood pressure 122/76. LUNGS: Bilateral fair airflow, decreased at the bases. HEART: S1 and S2 audible. ABDOMEN: Soft and nontender. No rebound. No guarding. NEUROLOGICAL: She is awake, alert, oriented, and communicative. LABORATORY DATA: WBC is 4.6, hemoglobin 9.3, hematocrit 28.1, and platelet of 206. Chemistry; sodium 139, potassium 3.8, chloride 113, CO2 of 25, BUN 15, creatinine 0.7, blood sugar 82, and bilirubin is 0.1. She has bilateral leg Doppler done. There is no sonographic evidence of DVT. ASSESSMENT: 1. Symptomatic anemia, acute on chronic. 2. Bilateral leg swelling. 3. History of sarcoidosis. 4. History of multiple sclerosis. 5. Bilateral knee osteoarthritis. 6. Left nephrolithiasis and stent placement. PLAN: The patient is awaiting Dr. Bhatti's evaluation. I will start her on IV Lasix. We will continue on her analgesic, Dr. Bhatti to evaluate the patient. We will follow up her CBC and CMP in a.m. We will follow up her blood culture and urine culture. Rad Onofre MD [facility] # [id number]
[2017-04-18 15:27] LABS: URINE BILIRUBIN NEGATIVE (NEGATIVE); URINE BLOOD TRACE-INTACT (NEGATIVE); URINE GLUCOSE (UA) NEGATIVE (NEGATIVE); URINE KETONE NEGATIVE (NEGATIVE); URINE LEUKOCYTE ESTERASE NEGATIVE Leu/uL (NEGATIVE); URINE PROTEIN NEGATIVE mg/dL (<30 mg/dL); URINE UROBILINOGEN 0.2 E.U./dL (<1 E.U./dL)
[2017-04-18 15:28] LABS: URINE APPEARANCE CLEAR (CLEAR); URINE COLOR STRAW (YELLOW)
[2017-04-18 15:40] LABS: URINE BACTERIA NEG (NEG); URINE EPITHELIAL CELLS 0 - 2 /hpf (0-5); URINE RBC 0 - 2 /hpf (0-2); URINE WBC 0 - 2 /hpf (0-6)
--- NOTE | 2017-04-18 22:07 | PCM.URO ---
Urology Progress Note - Objective Lab Studies: Reviewed (plans to be discussed thanks for gu consult) Lab Results Last 24 Hours: Laboratory Results - last 24 hr 04/18/17 04/18/17 04/18/17 05:10 05:10 15:15 WBC 4.6 RBC 3.21 L Hgb 9.3 L D Hct 28.1 L MCV 87.5 MCH 29.0 MCHC 33.1 RDW 17.7 H Plt Count 206 MPV 9.6 Sodium 139 Potassium 3.8 Chloride 113 H Carbon Dioxide 25 Anion Gap 5 L BUN 15 Creatinine 0.7 Est GFR ( Amer) > 60 Est GFR (Non-Af Amer) > 60 Random Glucose 82 Calcium 7.4 L Magnesium 2.0 Total Bilirubin 0.1 L AST 33 ALT 49 Alkaline Phosphatase 65 Total Protein 4.0 L Albumin 1.6 L Globulin 2.4 Albumin/Globulin Ratio 0.7 L Urine Color Straw Urine Appearance Clear Urine pH 6.0 Ur Specific Norton 1.010 Urine Protein Negative Urine Glucose (UA) Negative Urine Ketones Negative Urine Blood Trace-intact H Urine Nitrate Negative Urine Bilirubin Negative Urine Urobilinogen 0.2 Ur Leukocyte Esterase Negative Urine RBC 0 - 2 Urine WBC 0 - 2 Ur Epithelial Cells 0 - 2 Urine Bacteria Neg Stool Occult Blood 04/18/17 19:42 WBC RBC Hgb Hct MCV MCH MCHC RDW Plt Count MPV Sodium Potassium Chloride Carbon Dioxide Anion Gap BUN Creatinine Est GFR ( Amer) Est GFR (Non-Af Amer) Random Glucose Calcium Magnesium Total Bilirubin AST ALT Alkaline Phosphatase Total Protein Albumin Globulin Albumin/Globulin Ratio Urine Color Urine Appearance Urine pH Ur Specific Norton Urine Protein Urine Glucose (UA) Urine Ketones Urine Blood Urine Nitrate Urine Bilirubin Urine Urobilinogen Ur Leukocyte Esterase Urine RBC Urine WBC Ur Epithelial Cells Urine Bacteria Stool Occult Blood Positive H Intake & Output: Intake & Output 04/18/17 04/18/17 04/19/17 06:59 18:59 06:59 Intake Total 1959 540 880 Balance 1959 540 880 Intake: Oral 1959 540 880 Other: # Voids Urine, Voided 1 3 3 # Bowel Movements 0 0 2 Vital Signs: Vital Signs - 24 hr 04/18/17 04/18/17 04/18/17 02:00 03:56 08:15 Temperature 98.3 F Pulse Rate 64 62 68 Respiratory 20 Rate Blood Pressure 122/76 O2 Sat by Pulse 98 Oximetry 04/18/17 04/18/17 04/18/17 10:00 13:22 14:00 Temperature Pulse Rate 76 66 Respiratory Rate Blood Pressure 122/76 O2 Sat by Pulse Oximetry 04/18/17 04/18/17 16:00 18:00 Temperature 97 F L Pulse Rate 70 69 Respiratory 18 Rate Blood Pressure 114/53 L O2 Sat by Pulse 98 Oximetry
[2017-04-19 06:26] LABS: BASO # 0.02 K/mm3 (0.0-2.0); BASO % 0.4 % (0.0-3.0); EOS # 0.1 (0.0-0.7); EOS % 2.3 % (1.5-5.0); GRAN # 2.74 (1.4-6.5); HEMATOCRIT 28.1 % (36.0-48.0); LYMPH # 1.4 (1.2-3.4); LYMPH % 29.1 % (22.0-35.0); MEAN CELL VOLUME 87.8 fl (80.0-105.0); MEAN CORPUSCULAR HEMOGLOBIN 29.1 pg (25.0-35.0); MEAN CORPUSCULAR HGB CONC 33.1 g/dl (31.0-37.0); MEAN PLATELET VOLUME 9.2 fl (7.0-11.0); MONO # 0.5 (0.1-0.6); MONO % 11.2 % (1.0-6.0); RED CELL DISTRIBUTION WIDTH 17.9 % (11.5-14.5); WHITE BLOOD COUNT 4.8 10^3/ul (4.5-11.0)
[2017-04-19 06:55] LABS: ALB/GLOB RATIO 0.7 (1.1-1.8); ALKALINE PHOSPHATASE 70 U/L (38-126); ALT/SGPT 58 U/L (7-56); AST/SGOT 34 U/L (14-36); BILIRUBIN,TOTAL 0.2 mg/dL (0.2-1.3); BLOOD UREA NITROGEN 13 mg/dL (7-21); CALCIUM 7.2 mg/dL (8.4-10.5); CARBON DIOXIDE 28 mmol/L (21-33); CHLORIDE 108 mmol/L (95-110); GFR AFRICAN-AMERICAN > 60; GLUCOSE,RANDOM 80 mg/dL (70-110); POTASSIUM 4.1 mmol/L (3.6-5.0); SODIUM 135 mmol/L (132-148); TOTAL PROTEIN 3.9 g/dL (5.8-8.3)
[2017-04-19] MEDS: Potassium Chloride 10 mEq ER Tab PO SCH (08:00)
--- NOTE | 2017-04-19 09:16 | CON ---
DATE: 04/18/2017 REASON FOR CONSULT: Anemia. HISTORY OF PRESENT ILLNESS: The patient is a 62-year-old female with past medical history significant for hypertension, multiple sclerosis, sarcoidosis, pancreatitis, history of left ureteral stent secondary to multiple renal stones as well as history of gastric bypass several years ago, who was admitted with complaints of weakness. She has been experiencing generalized weakness as well as exertional dyspnea for several weeks. She was following up in the office on a regular basis and getting IV iron on a monthly basis, but stopped several months ago. She has since then had multiple problems with her hemoglobin, has been getting IV iron as an outpatient in the outpatient setting here, but there has been no improvement in her counts. She denies any chest pain, any nausea, no vomiting,no diarrhea. She does have some back pain. She has lost a considerable amount of weight, also has some generalized anasarca, which is new since the last time I had seen the patient. PAST MEDICAL HISTORY: As above. Known history of hypertension, sarcoidosis, multiple sclerosis, pancreatitis, ureteral stent, history of gastric bypass. CURRENT MEDICATIONS: Include vitamin D3, B12, Celexa, BuSpar, Biotin, Lasix, Neurontin, Claritin, Mobic as well as CoQ10. ALLERGIES: NO KNOWN DRUG ALLERGIES. SOCIAL HISTORY: Noncontributory. She is not a smoker. No alcohol use. No drug use. FAMILY HISTORY: Noncontributory. REVIEW OF SYSTEMS: As per the HPI. PHYSICAL EXAMINATION GENERAL: The patient is an elderly female, lying in bed, in no acute distress. VITAL SIGNS: Reveal a temperature of 98.3, pulse of 68, respiratory rate of 20, and a blood pressure of 112/76. HEENT: Head and neck: Normocephalic, atraumatic. Eyes: Pupils equal, round, and reactive to light and accommodation. Extraocular muscles are intact. There is some pallor. No icterus is noted. NECK: Supple with no adenopathy. No JVD. No thyromegaly. CARDIOVASCULAR: S1 and S2 are heard. LUNGS: Clear to auscultation bilaterally with no rales or rhonchi. ABDOMEN: Positive bowel sounds, soft, nontender, nondistended. No organomegaly is palpated. EXTREMITIES: There is generalized edema upper and lower extremities. LABORATORY DATA: Her labs reveal a white count of 4.6, hemoglobin 9.3 posttransfusion, hematocrit of 28.1, and an MCV of 87.5, platelet count of 206. Electrolytes are within normal limits. There is no renal dysfunction. Her recent iron study showed ferritin of 92.5, B12 is not done. ASSESSMENT AND PLAN: Elderly female with known history of gastric bypass surgery, known anemia for several years, was being maintained on IV iron and B12 as an outpatient, but the patient had been lost to followup for several months, now admitted with shortness of breath and severe anemia, status post packed red blood cells transfusion. Hemoglobin has improved. We will continue IV Venofer as well as IM B12 as an outpatient. Discussed with the patient at length. She will follow up as an outpatient. We will start iron, B12 while the patient is here, she is status post packed red blood cells transfusion. Thank you for the consult. We will follow. Madelin Guo MD
[2017-04-19] MEDS: oxyCODONE 20 mg ER Tab (oxyCONTIN) PO SCH ×2 (09:50→22:52)
--- NOTE | 2017-04-19 13:01 | CT ---
PROCEDURE: CT Abdomen and Pelvis without intravenous contrast HISTORY: uolithiasis COMPARISON: Abdomen and pelvis CT with contrast 11/10/2016. TECHNIQUE: Helical CT of the abdomen and pelvis was performed without oral or intravenous contrast as per referring physician request .. Contrast Dose: None Radiation dose: Total exam DLP = 427.54 mGy-cm. This CT exam was performed using one or more of the following dose reduction techniques: Automated exposure control, adjustment of the mA and/or kV according to patient size, and/or use of iterative reconstruction technique. FINDINGS: LOWER THORAX: Limited medial basilar atelectasis and left lower lobe with trace left pleural effusion. No pericardial effusion or right pleural effusion. Mild hiatal hernia is identified. LIVER: Prominent its hepatic steatosis appreciated, likely increased in the interval. GALLBLADDER AND BILE DUCTS: Prior cholecystectomy. Biliary tree poorly evaluated. PANCREAS: Unremarkable. No gross lesion or ductal dilatation. SPLEEN: Unremarkable. ADRENALS: Unremarkable. No mass. KIDNEYS AND URETERS: No right-sided obstructive uropathy identified. A left double-J ureteral stent is in position from the left renal pelvis to the left urinary bladder lumen without definitive adjacent radiodense urolithiasis appreciable. The prior left UPJ calculus appears either removed or expelled. Mild left hydronephrosis persists though significantly improved in the interval. Etiology of this finding is unclear. VASCULATURE: Unremarkable. No aortic aneurysm. BOWEL: There is very difficult to evaluate the bowel with the exception of there being probable constipation or mild distal rectosigmoid impaction. Prominent retained fecal material is identified at least at the transverse through sigmoid colon segments. Lack oral contrast limits the definition of bowel and is statin fact very difficult to differentiate marked lymphadenopathy in the central abdomen from on opacified small and large bowel loops given injected fat within and extrinsic to the abdomen. Consider follow-up contrast abdomen pelvis CT exam if indicated. Chain stages seen related an anastomotic site in a large bowel loop in the lower abdomen/ upper pelvis. APPENDIX: Not identified. PERITONEUM: The fat both within the abdomen as well as in the abdominal wall in particular appears increased in density diffusely, suggesting anasarca with a borderline upper abdominal ascites. No free intrarenal gas. LYMPH NODES: Poorly evaluated. BLADDER: Unremarkable. REPRODUCTIVE: Unremarkable. BONES: No acute fracture. OTHER FINDINGS: None. IMPRESSION: 1. Mild left hydronephrosis appreciated although the left UPJ calculus previous shown is not identified currently. Patient seen to be status post left double-J ureteral stent placement with improvement in prior hydronephrosis left kidney. No suspicious right renal findings. 2. Prominent density throughout the fat within the abdomen as well as in the abdominal wall suggestive of interval marked anasarca. Clinically correlate further. 3. Lack of contrast agents base extremely difficult to separate loops of bowel for potential abdominal lymphadenopathy with the latter not favored. There is also a limited volume of intraperitoneal fat. Consider possible constipation and moderate rectosigmoid fecal impaction. Please see discussion above. 4. Prior cholecystectomy noted. Marked fatty infiltration liver diffusely noted.
[2017-04-19] MEDS ORDERED: Metoprolol Succinate 25 mg XL Tab PO STA (22:18)
[2017-04-20] MEDS: Potassium Chloride 10 mEq ER Tab PO SCH (08:22)
[2017-04-20] MEDS: Metoprolol Succinate 25 mg XL Tab PO SCH (08:23)
[2017-04-20] MEDS ORDERED: Midazolam 2 MG/2 ML VIAL ONE (09:07)
[2017-04-20] MEDS ORDERED: Propofol 10 mg/ml Inj (20 ML) ONE (09:07)
--- NOTE | 2017-04-20 09:09 | CARD ---
APPROVED REPORT EXAM: Two-dimensional and M-mode echocardiogram with Doppler and color Doppler. INDICATION MEDICAL CLEARANCE/LVFX 2D DIMENSIONS Left Atrium (2D)4.6 (1.6-4.0cm)IVSd1.0 (0.7-1.1cm) LVDd4.6 (3.9-5.9cm)PWd0.8 (0.7-1.1cm) LVDs3.4 (2.5-4.0cm)FS (%) 26.7 % LVEF (%)52.1 (>50%) M-Mode DIMENSIONS Aortic Root2.90 (2.2-3.7cm)Aortic Cusp Exc.1.70 (1.5-2.0cm) Aortic Valve AoV Peak Atajkcuf967.0cm/Holly Peak GR.10mmHg Mitral Valve MV E Lullbsnw25.0cm/sMV A Uopbnqkg73.3cm/sE/A ratio0.8 TDI Lateral E' Peak V13.50cm/sMedial E' Peak V7.90cm/sE/Lateral E'5.5 E/Medial E'9.4 Pulmonary Valve PV Peak Vkbfqzcw80.0cm/sPV Peak Grad.2mmHg Tricuspid Valve TR Peak Swllkevx542ln/sRAP [id number] Peak Gr.29mmHg [id number] LEFT VENTRICLE The left ventricle is normal size. There is normal left ventricular wall thickness. The systolic function is mildly impaired. There is mild global hypokinesis of the left ventricle. RIGHT VENTRICLE The right ventricle is normal size. The right ventricular systolic function is normal. ATRIA The left atrium is mildly dilated. The right atrium size is normal. The interatrial septum is intact with no evidence for an atrial septal defect. AORTIC VALVE The aortic valve is normal in structure. No aortic regurgitation is present. There is no aortic valvular stenosis. MITRAL VALVE The mitral valve is normal in structure. Mitral regurgitation is mild. TRICUSPID VALVE The tricuspid valve is normal in structure. There is mild tricuspid regurgitation. PULMONIC VALVE The pulmonary valve is normal in structure. GREAT VESSELS The aortic root is normal in size. The IVC is normal in size and collapses >50% with inspiration. PERICARDIAL EFFUSION There is no pleural effusion. There is no pericardial effusion. <Conclusion> Mildly dilated LA. Normal LV size. Mild global LV hypokinesis. Overall EF -50%. Mild MR and TR.
[2017-04-20] MEDS ORDERED: Gentamicin 80mg/50ml NS 80 MG/50 ML BAG IVPB ONE (09:20)
[2017-04-20] MEDS ORDERED: Gentamicin IV 80mg/50ml NS(PREMIX) IVPB ONE (09:20)
[2017-04-20] MEDS ORDERED: Iohexol 240 (50 ml) ONE (09:23)
[2017-04-20] MEDS ORDERED: HYDROmorphone 0.5 mg/0.5 ml ISec IVP PRN ×3 (10:14→16:37)
[2017-04-20] MEDS ORDERED: Lactated Ringer's 1,000 ML IV SCH (10:15)
[2017-04-20] MEDS ORDERED: HYDROmorphone 0.5 mg/0.5 ml ISec ONE ×2 (10:40→10:57)
[2017-04-20] MEDS ORDERED: HYDROmorphone 0.5 mg/0.5 ml ISec IVP ONE ×2 (10:43→10:59)
[2017-04-20] MEDS ORDERED: Ciprofloxacin 400mg/200ml D5W 400 MG/200 ML BAG IVPB STA (10:51)
[2017-04-20] MEDS ORDERED: Ciprofloxacin 400mg/200ml D5W 400 MG/200 ML BAG IVPB ONE (11:12)
[2017-04-20] MEDS ORDERED: Ciprofloxacin 400mg/200ml D5W IVPB ONE (11:19)
[2017-04-20] MEDS: oxyCODONE 20 mg ER Tab (oxyCONTIN) PO SCH ×2 (11:42→21:20)
--- NOTE | 2017-04-20 11:53 | PN ---
SUBJECTIVE: The patient is 62 years old, seen and examined. Denies any chest pain or shortness of breath. No nausea or vomiting. No diarrhea. Does complain of shortness of breath, but has gotten much better since she got blood transfusion. PHYSICAL EXAMINATION: VITAL SIGNS: She is afebrile. Pulse 63, respirations 18 and blood pressure 120/74. LUNGS: Bilateral fair airflow. No rhonchi or crackles. HEART: S1 and S2 audible. ABDOMEN: Soft, nontender. No rebound. No guarding. NEUROLOGICAL: She is awake, alert, oriented, communicative, able to ambulate. EXTREMITIES: Bilateral leg +2 edema. LABORATORY DATA: WBC is 4.8, hemoglobin 9.3, hematocrit 28.1 and platelets of 190. PT is 12.8, INR 1.17. Chemistry: Sodium 135, potassium 4.1, chloride 108, CO2 of 28, BUN 13, creatinine 0.7, blood sugar of 80. Urinalysis; stool for Hemoccult is positive. Urine cultures are negative. Has echocardiogram done that is pending. CT scan of the abdomen and pelvis shows mild left hydronephrosis. Status post cholecystectomy. ASSESSMENT: 1. Symptomatic anemia, status post blood transfusion. 2. History of sarcoidosis. 3. History of multiple sclerosis. 4. Chronic bilateral leg edema. 5. History of nephrolithiasis, status post stent placement in September. PLAN: The patient is scheduled to have stent placement tomorrow by Dr. Bhatti. I will follow echocardiogram and request Dr. Marcus for Cardiology consult. Start her on beta-kayla. Follow up the patient in the a.m. Rad Onofre MD
[2017-04-20] MEDS: metOLazone 5 MG TAB PO SCH (12:18)
--- NOTE | 2017-04-20 12:54 | RAD ---
PROCEDURE: Cystogram HISTORY: STENT INSERTION COMPARISON: TECHNIQUE: Fluoroscopy was provided in the operating room. 14.6 seconds of fluoro time were used. Eleven images were submitted FINDINGS: The study shows replacement of a left ureteral stent IMPRESSION: As above
[2017-04-20] MEDS: levoFLOXacin 500 mg in D5W 500 MG/100 ML BAG IVPB SCH (14:30)
--- NOTE | 2017-04-20 14:41 | PN ---
DATE: SUBJECTIVE: The patient is a 62-year-old, seen and examined. The patient is seen back from cystoscopy and stent replacement. She has hematuria in her Smith bag. PHYSICAL EXAMINATION GENERAL: She is awake, alert and oriented, complaining of severe pelvic and flank discomfort. VITAL SIGNS: Afebrile, pulse 65,respirations 20, and blood pressure 127/77. LUNGS: Bilateral fair air flow. No rhonchi or crackle. HEART: S1 and S2 audible. ABDOMEN: Soft and nontender. No rebound. No guarding. GENITOURINARY: She has blood-tinged urine in her Smith bag. LABORATORY DATA: She had an echocardiogram done that shows mildly dilated left atrium, mild LV hypokinesia with ejection fraction of 50%. ASSESSMENT: 1. Symptomatic anemia. 2. Hemoccult positive. 3. History of multiple sclerosis. 4. History of sarcoidosis. 5. Depression. 6. Status post ureteric stent replacement. PLAN: Currently the patient is on Cipro. I will start her on IV Levaquin. We will monitor her H and H, out to bed to chair. Follow up CBC and CMP in a.m. Rad Onofre MD
--- NOTE | 2017-04-20 23:14 | OP ---
UROLOGY OPERATIVE REPORT PROCEDURE DATE: 04/20/2017 PREOPERATIVE DIAGNOSES: Urolithiasis, hematuria, hydronephrosis, stone disease. POSTOPERATIVE DIAGNOSES: Urolithiasis, hematuria, hydronephrosis, stone disease, retained stent, encrusted retained stent with too many stone burden on the stent. PROCEDURES: Cystoscopy, debridement of the stones off the stent, laser lithotripsy of the stones on the stent, left retrograde pyelogram, left ureteroscopy, left laser lithotripsy, and insertion of a left double-J stent and insertion of a Smith catheter. COMPLICATIONS: There were no complications. ESTIMATED BLOOD LOSS: Less than 25 mL. INDICATIONS: See the history and physical for further details and the consultation. Very pleasant, but extremely noncompliant lady, 62-year-old with multiple medical problems, who is now admitted to the hospital for upper extremity issues and dyspnea on exertion. See the chart and the consultations. Especially, from the Urology standpoint, we were consulted because she has a retained stent that has been in there for several months. After discussing all the options, she is here now for the above procedure. OUR FINDINGS TODAY: The bladder mucosa is relatively normal. The stent is incompletely completely encrusted in the bladder. Even when I pulled it a little bit, it is still within the distal ureters, all encrusted that you cannot even see the stent, it is only encrusted. The stent is incompletely encrusted and the curl in the kidney level is also encrusted. There is massive amount of hydronephrosis. Whether it is all hydro, whether there is debris, it is very difficult to evaluate. Based on the x-ray, there does not appear to be any extravasation. I have seen the multiple images and the films were submitted to the Radiology as well to read, but I did not see there is any extravasation, but it is like a bag of fluid in the kidney. Even though the CAT scan reported as just mild, but there is definite significant abnormalities. At the termination of the procedure though I am be able to laser the stone incompletely, see the pictures. We removed the stent and inserted a new double J stent. We also inserted a Smith catheter for further monitoring. See the addendum at the end of this note. INDICATIONS FOR THE PROCEDURE: See details in the chart, but I discussed all options with the patient, risks, benefits, and alternatives. By her report, again, she knew she had a stent in and for various medical reasons and just social reason, she did not ever return back to the office until she came in to this situation. What she is speaking that may be her extremity edema on her upper extremities is related to her kidney. DESCRIPTION OF PROCEDURE: After obtaining informed consent, the patient was placed on the table. Routine monitor was placed. Timeout was called to confirm the patient and positioning. The patient was in lithotomy. We gave gentamicin prophylaxis. See lab. THE PATIENT IS ALLERGIC TO BOTH PENICILLIN AND SULFONAMIDES. SHE IS ALSO ALLERGIC TO CODEINE. We continued with the cystoscope introduced via urethra. What we note there is that the stent is completely encrusted, you can see an completely encrusted stent, I took multiple pictures. Even when I gave a little effort to break up the stent, then I really have to debride with the grasper forceps just to get myself to be able to find the stent. When I pulled down a little bit in the ureter just gently, I still see in the proximal distal ureter just proximal to where the orifice is, there is still stone, all encrusted. We worked a little bit more just on the stent, so that we could get a good grasp on it and then I tried pulling a little bit. Although, I can not see direct stones on the stent, I have to zoom at the curl-up and the kidney at the same time. So, at this point, I removed the scope and introduced a wire up to the kidney. I confirmed this position by fluoroscopic imaging. Once I did that, I pulled the stent out to the distal meatus and with the stent in my hand, I did hold on it, but did not pull it so that I would be able to do the next part. At this point, I have a safety wire up to the kidney. I could see this by fluoro, I have the double-J stent reaching out of the bladder. At this point, I introduced the videoureteroscope. I brought it all the way up to the renal pelvis to see the pictures that I took along the way. Any stones that were in the way, along the way we lasered immediately, but now the big work begins. We are looking at the renal pelvis and the stone. I did confirm with the fluoroscopic imaging and I provided laser energy to the stent very carefully to make sure that I am not leaving any break in the stent, breaking it all, subsequently when we took the pictures out, we took the stent out, and I looked in it and it has got the curl still in it. The stent itself, you could see the laser lay on it, but it is grossly intact. I inspected it very carefully and I sent it to the pathologist to make a comment on the intactness of the stent, but basically two curls on both sides are there. I took multiple pictures of the distal end, but actually as I am dictating I recognized I did not take the proximal end, but it is definitely grossly intact. What we had done was we basically lasered and lasered the stones off the stent until we broke up the stones nicely. At this point, once we were able to pull it down, I also self counseled we had a safety wire in place. I had injected contrast along the way prior to even working just like we can get any outline to make sure that it was the safety wire up in the kidney. At this point, there was definitely no perforations when that initial contrast went in and there is a significantly hydronephrotic abnormal appearing kidney from either debris or just hydronephrosis. It is difficult to tell because it does not look like just filled up with contrast with pure hydro, but I do not see any other stones, so most likely it is just some kind of debris, pyelonephrosis sort of picture, but there is not a lot visually to suggest this. So, it is possible that it just all hydronephrotic, but the contrast did not fill out well. See the picture of that film submitted. There is definitely no extravasation. There was once we pulled the double-J out and sent it to the lab and comment about it. We put the double J stent in. With this amount of hydro and this much work and lasering, there is no way than have it removed without having a few days of cool down. At this point, to relieve any urination difficulty, we inserted a Smith catheter via the urethra without difficulty. Blood is noted, its all within normal limits. Overall, the patient tolerated the procedure well without complication. ADDENDUM: So, we basically cleared out any stents. The patient will need a rapid followup to get the other stent removed and I am going to try do that in about a week. I will emphasize to the patient the importance of followup and compliance, and even to the point that perhaps she should stay hospital, we will have to discuss this with the patient. I also explained to the patient in great detail that we would not possibly remove the stent with this amount of hydro. We will discuss the plans for possible repeat of a CT scan just to confirm positioning. Further plans will follow. Jareth Bhatti MD
[2017-04-21 06:40] LABS: BASO # 0.02 K/mm3 (0.0-2.0); BASO % 0.3 % (0.0-3.0); EOS # 0.1 (0.0-0.7); EOS % 0.9 % (1.5-5.0); GRAN # 4.47 (1.4-6.5); GRAN % 65.3 % (50.0-68.0); HEMATOCRIT 30.4 % (36.0-48.0); LYMPH # 1.5 (1.2-3.4); LYMPH % 22.4 % (22.0-35.0); MEAN CELL VOLUME 88.1 fl (80.0-105.0); MEAN CORPUSCULAR HGB CONC 32.9 g/dl (31.0-37.0); MEAN PLATELET VOLUME 9.8 fl (7.0-11.0); MONO # 0.8 (0.1-0.6); MONO % 11.1 % (1.0-6.0); RED CELL DISTRIBUTION WIDTH 18.1 % (11.5-14.5); WHITE BLOOD COUNT 6.8 10^3/ul (4.5-11.0)
[2017-04-21 06:49] LABS: ALB/GLOB RATIO 0.7 (1.1-1.8); ALKALINE PHOSPHATASE 75 U/L (38-126); ALT/SGPT 52 U/L (7-56); AST/SGOT 35 U/L (14-36); BILIRUBIN,TOTAL 0.3 mg/dL (0.2-1.3); BLOOD UREA NITROGEN 18 mg/dL (7-21); CALCIUM 7.1 mg/dL (8.4-10.5); CARBON DIOXIDE 34 mmol/L (21-33); CHLORIDE 98 mmol/L (98-107); CHOLESTEROL 62 mg/dL (130-200); GFR AFRICAN-AMERICAN > 60; GLUCOSE,RANDOM 85 mg/dL (70-110); MAGNESIUM 1.8 mg/dL (1.7-2.2); PHOSPHOROUS 3.9 mg/dL (2.5-4.5); POTASSIUM 3.9 mmol/L (3.6-5.0); SODIUM 133 mmol/L (132-148)
[2017-04-21] MEDS: Potassium Chloride 10 mEq ER Tab PO SCH (08:10)
[2017-04-21] MEDS: Metoprolol Succinate 25 mg XL Tab PO SCH (08:20)
--- NOTE | 2017-04-21 08:49 | CON ---
DATE: 04/20/2017 REASON FOR CONSULTATION: Preop evaluation, risk stratification for cystoscopy and possible removal of the stent. BRIEF CLINICAL HISTORY: This is a 62-year-old female with a past medical history significant for multiple sclerosis, pulmonary sarcoidosis being followed by Dr. Chaudhari for Neurology and Dr. Guo for Heme/Onc, history of chronic anemia, admitted with nephrolithiasis, left ureteric stone status post lithotripsy since September. Now the patient had stent in the left ureter. Cardiac consult was called for preop evaluation, risk stratification. The patient denies any chest pain, shortness of breath, any palpitation and complaining of left flank pain. PAST MEDICAL HISTORY: Significant for sarcoidosis, multiple sclerosis diagnosed in 1987, hypertension, history of anemia being followed by Dr. Guo and Dr. Chaudhari. PAST SURGICAL HISTORY: Significant for cholecystectomy, appendectomy 40 years ago, history of bilateral knee repair, arthroscopic. FAMILY HISTORY: Noncontributory. SOCIAL HISTORY: Used to smoke heavy, quit more than 20 to 30 years ago. Denies any history of alcohol abuse. Denies any history of substance abuse. CURRENT MEDICATIONS: The patient at home was taking oxycodone, BuSpar, meloxicam, Mobic, cyanocobalamin, furosemide, gabapentin, Neurontin. REVIEW OF SYSTEMS: As per HPI and also complains of bilateral lower extremity swelling with a chronic swelling all over the body. PHYSICAL EXAMINATION: VITAL SIGNS: As follows; temperature afebrile, heart rate 86, blood pressure 116/73. HEENT: PERRLA. Extraocular muscles intact. NECK: Supple. No carotid bruits or thyromegaly. CHEST: Clear to auscultation. HEART: S1 and S2 regular. ABDOMEN: Soft. EXTREMITIES: Clubbing and cyanosis negative. 1 to 2+ pedal edema. LABORATORY DATA: EKG showed normal sinus rhythm, low voltage EKG, but no acute ST-T changes noted. WBC 4.8, hemoglobin 9.3, hematocrit 28.1 and platelet count 190. Chemistry shows sodium 135, potassium 4.1, chloride 108, carbon dioxide 28, anion gap of 3, BUN 13 and creatinine 0.7. Total protein 3.7, albumin 1.7. IMPRESSION: Preop evaluation, risk stratification for cystoscopy and stent placement, anemia status post packed red blood cells transfusion, severe protein-calorie malnutrition, which was present on admission, history of sarcoid, history of multiple sclerosis, history of chronic anemia being followed by Dr. Guo, history of stone status post lithotripsy since September twice at [facility] as an outpatient for stent placement in ureter, complaining of pain. The patient had echocardiography done yesterday that revealed mildly dilated LA, normal LV size, global hypokinesis, overall ejection fraction 50%, mild MR, mild TR, protein-calorie malnutrition moderate to severe, bilateral leg edema, history of repair of both knees. So this bilateral leg edema is multifactorial secondary to protein-calorie malnutrition and gross fluid overload. Duplex scan study shows no sonographic evidence of deep venous thrombosis. RECOMMENDATION: The patient is cleared from cardiac point of view to go for surgery with moderate risk, no absolute contraindication. No evidence or arrhythmia, no evidence of congestive heart failure, no history of angina. The patient is on low-dose beta kayla started by Dr. Onofre, continue. We will start IV Lasix, continue. If the blood pressure is tolerating it, we will give one dose of starting from tomorrow, Zaroxolyn 2.5 for two days and monitor closely trying to get diuresed. Monitor blood pressure. Monitor electrolytes closely. We will await lipid profile, hemoglobin A1c and repeat blood workup in the morning. Thank you Dr. Onofre for providing us the opportunity in taking care of the patient, Rachelle Mclaughlin. We will follow with you. Kami Willson MD
[2017-04-21] MEDS: oxyCODONE 20 mg ER Tab (oxyCONTIN) PO SCH ×2 (09:48→22:01)
[2017-04-21] MEDS: metOLazone 5 MG TAB PO SCH (09:50)
[2017-04-21] MEDS: levoFLOXacin 500 mg in D5W 500 MG/100 ML BAG IVPB SCH (09:50)
--- NOTE | 2017-04-21 09:56 | CT ---
PROCEDURE: CT Abdomen and Pelvis without intravenous contrast HISTORY: is the stent in proper location//comment of hydron COMPARISON: Unenhanced abdomen pelvis CT exam dated 04/19/2017. TECHNIQUE: Helical CT of the abdomen and pelvis was performed without oral or intravenous contrast as per referring physician request . Contrast Dose: None Radiation dose: Total exam DLP = 630.09 mGy-cm. This CT exam was performed using one or more of the following dose reduction techniques: Automated exposure control, adjustment of the mA and/or kV according to patient size, and/or use of iterative reconstruction technique. FINDINGS: LOWER THORAX: Limited bilateral basilar dependent atelectasis appreciate the left base increased in the interval with linear atelectasis or fibrosis noted at the right base. Hiatal hernia is again evident. LIVER: Fatty liver again identified. GALLBLADDER AND BILE DUCTS: Prior cholecystectomy again noted. PANCREAS: Unremarkable. No gross lesion or ductal dilatation. SPLEEN: Unremarkable. ADRENALS: Unremarkable. No mass. KIDNEYS AND URETERS: Left-sided double-J ureteral stent appears in the left renal pelvis and may have been advanced retrograde further into the kidney however moderate hydronephrosis persists including left perinephric reaction. The proximal segment of the stent appears coiled multiple times however and may be obstructed proximally. The distal segment is status quo the left-sided urinary bladder with urinary bladder partially filled with gas, partially decompressed by Smith catheterization. Infrequent intrarenal calculi again seen in the left kidney better at the right. No right hydronephrosis. VASCULATURE: Unremarkable. No aortic aneurysm. BOWEL: Postop changes seen related to the stomach as well as apparent distal sigmoid colon. No bowel obstruction is appreciated. Mild ascites noted with anasarca type pattern involving intra and extra abdominal fat diffusely. No free intrarenal gas. APPENDIX: Not clearly identified. PERITONEUM: Unremarkable. No free fluid. No free air. LYMPH NODES: Unremarkable. No enlarged lymph nodes. BLADDER: Unremarkable. REPRODUCTIVE: Unremarkable. BONES: No acute fracture. OTHER FINDINGS: None. IMPRESSION: 1. Left-sided double-J ureteral stent in position potentially advanced retrograde into the midpole left kidney. Multiple coils are seen increased at the proximal portion which may be causing obstruction of the stent as hydronephrosis appears slightly increased. Clinically correlate further. The distal coil appears normal at the left-sided urinary bladder. 2. Prior cholecystectomy. 3. Prior stomach as well as distal large bowel surgery. 4. Anasarca suggested. 5. Decompressed bowel loops. Other lesser findings as discussed above.
[2017-04-21] MEDS ORDERED: HYDROmorphone 1 mg/ml ISec IVP STA (11:26)
[2017-04-21] MEDS ORDERED: metOLazone 2.5 MG TAB PO SCH (12:17)
--- NOTE | 2017-04-21 13:48 | PN ---
DATE: 04/21/2017 REASON FOR CONSULTATION: Preop evaluation, risk stratification for cystoscopy and possible removal of the stent. SUBJECTIVE: The patient denies any chest pain, shortness of breath, or any palpitations, status post stent in the ureter. Discussed with Dr. Bhatti. OBJECTIVE: GENERAL: Not in apparent distress. VITAL SIGNS: As follows: Temperature afebrile, heart rate 73, and blood pressure 101/63. HEENT: PERRLA. Extraocular muscles intact. NECK: Supple. No carotid bruits or thyromegaly. CHEST: Clear to auscultation. HEART: S1 and S2 regular. ABDOMEN: Soft. EXTREMITIES: Clubbing and cyanosis negative. LABORATORY DATA: Blood workup as follows: WBC 6.8, hemoglobin 10, hematocrit 30.4, and platelets 204. Chemistry shows sodium 130, potassium 3.4, chloride 98, carbon dioxide 34, anion gap of 5, BUN 18, and creatinine 1.0. IMPRESSION: Status post , status post lithotripsy, status post stent in the ureter, history of multiple sclerosis, history of sarcoidosis being followed by Dr. Guo, and history of chronic anemia. The patient had echocardiography done day before yesterday that showed dilated left atrium, normal left ventricular size, global hypokinesis, ejection fraction 50%, mild mitral regurgitation, mild tricuspid regurgitation. RECOMMENDATIONS: Continue current treatment, status post packed RBC transfusion, monitor H and H . If remained stable, we will like to follow p.r.n. Thank you Dr. Onofre for providing us the opportunity in taking care of the patient, Rachelle Mclaughlin. Kami Willson MD
--- NOTE | 2017-04-21 16:29 | PN ---
DATE: SUBJECTIVE: The patient is a 62-year-old, seen and examined, complaining of left flank pain since she had a stent placed. Her hematuria is very subtle and has concentrated urine and felt nausea, but feeling better now. PHYSICAL EXAMINATION VITAL SIGNS: She is afebrile, pulse 73, respirations 18, blood pressure 101/63. LUNGS: Bilateral fair airflow. No rhonchi or crackles. HEART: S1 and S2 audible. ABDOMEN: Soft. She has left flank slight palpable discomfort. NEUROLOGIC: She is awake, alert, oriented, communicative. EXTREMITIES: Moves all extremities. Bilateral leg edema has significantly improved. LABORATORY DATA: WBC 6.8, hemoglobin 10, hematocrit 30.4, and platelets of 204. Chemistry: Sodium 133, potassium 3.9, chloride 98, CO2 of 34, BUN 18, creatinine 1.0. Urine cultures are negative. ASSESSMENT: 1. Symptomatic anemia, etiology unclear, status post left urethral stent replacement. 2. History of multiple sclerosis. 3. History of sarcoidosis. 4. History of constipation. PLAN: I will cut down her Lasix for now. Given analgesics. She has been started on Levaquin. Out of bed to chair. If the patient remains stable, she can be discharged in the a.m. Rad Onofre MD
[2017-04-22] MEDS: HYDROmorphone 1 mg/ml ISec IVP PRN ×2 (03:31→07:49)
[2017-04-22 06:09] LABS: HEMATOCRIT 33.2 % (36.0-48.0); MEAN CELL VOLUME 88.8 fl (80.0-105.0); MEAN CORPUSCULAR HEMOGLOBIN 28.9 pg (25.0-35.0); MEAN CORPUSCULAR HGB CONC 32.5 g/dl (31.0-37.0); MEAN PLATELET VOLUME 9.9 fl (7.0-11.0); RED CELL DISTRIBUTION WIDTH 18.2 % (11.5-14.5); WHITE BLOOD COUNT 9.6 10^3/ul (4.5-11.0)
[2017-04-22 06:37] LABS: ALB/GLOB RATIO 0.7 (1.1-1.8); BILIRUBIN,TOTAL 0.5 mg/dL (0.2-1.3); CALCIUM 7.5 mg/dL (8.4-10.5); POTASSIUM 4.4 mmol/L (3.6-5.0); TOTAL PROTEIN 4.7 g/dL (5.8-8.3)
[2017-04-22] MEDS: Potassium Chloride 10 mEq ER Tab PO SCH (07:49)
[2017-04-22] MEDS: Metoprolol Succinate 25 mg XL Tab PO SCH (07:49)
[2017-04-22 08:42] VITALS: RESP 20
[2017-04-22] MEDS: levoFLOXacin 500 mg in D5W 500 MG/100 ML BAG IVPB SCH (09:08)
[2017-04-22] MEDS: oxyCODONE 20 mg ER Tab (oxyCONTIN) PO SCH (09:09)
--- NOTE | 2017-04-22 10:33 | PN ---
DATE: 04/22/2017 REASON FOR CONSULTATION AND FOLLOWUP: Preoperative evaluation, risk stratification for cystoscopy and possible removal of the stent. SUBJECTIVE: The patient denies any chest pain, but complained of left flank pain. Denies any palpitation. PHYSICAL EXAMINATION: As follows: GENERAL: Lying in the bed, mild distress , and the left flank pain. VITAL SIGNS: Temperature is afebrile, heart rate is 80, and blood pressure is 101/66. HEENT: PERRLA. Extraocular muscles are intact. NECK: Supple. No carotid bruit or thyromegaly. CHEST: Clear to auscultation. HEART: S1 and S2 regular. ABDOMEN: Soft. EXTREMITIES: Clubbing and cyanosis negative. LABORATORY DATA: Blood workup as follows: WBC of 9.3, hemoglobin of 10.3, hematocrit of 33.2, and platelet count of 205. Chemistry shows sodium of 131, potassium of 4.4, chloride of 95, carbon dioxide of 34, anion gap of 6, BUN of 21, and creatinine of 1.3. Total protein of 4.7, albumin of 2, and albumin-globulin ratio is 0.7. IMPRESSION: Anemia chronic being followed by Dr. Guo, history of multiple sclerosis, history of pulmonary sarcoid, history of stone in the left kidney and ureter, status post stent, history of echocardiography done day before yesterday that showed dilated left atrium, normal left ventricular size, global mild hypokinesis, ejection fraction of 50%, mild mitral regurgitation,and mild tricuspid regurgitation. RECOMMENDATIONS: Continue current treatment, monitor H and H, consider transfusion of hemoglobin if goes below 8 and 9, hemoglobin is 10.8 after post transfusion. The patient is cleared from cardiology point of view, we will go for further intervention if required for ureteric stone. The patient is hemodynamically stable and no angina symptoms. we will sign off and glad to follow p.r.n. Thank you Dr. Onofre for providing us the opportunity in taking care of the patient, Rachelle Mclaughlin. Kami Willson MD
[2017-04-22] MEDS ORDERED: POLYETHYLENE GLYCOL 3350 17 GM/Dose PACKET PO SCH (18:15)
[2017-04-22 18:58] VITALS: BP 106/72; PULSE 83; TEMP 98; O2SAT 100
--- NOTE | 2017-04-22 22:26 | PN ---
DATE: SUBJECTIVE: The patient is a 62-year-old, seen and examined. Still complains of left flank pain. Has generalized weakness. Eating fair. No nausea or vomiting. PHYSICAL EXAMINATION: VITAL SIGNS: She is afebrile. Pulse 83, respiration 20, blood pressure 106/72. LUNGS: Bilateral fair air flow. No rhonchi or crackles. HEART: S1 and S2 audible. ABDOMEN: Soft, nontender. No rebound. No guarding. NEUROLOGICAL: The patient is awake, alert, and oriented. GENITOURINARY: She still has Smith that has concentrated urine. LABORATORY DATA: WBC is 9.6, hemoglobin 10.8, hematocrit 33.2, platelets of 205. Chemistry: Sodium 131, potassium 4.4, chloride 95, CO2 of 34, BUN 21, creatinine 1.6, blood sugar 97. Stool Hemoccult is positive. The patient was evaluated by Dr. Sheridan and he has not recommended any workup for now. ASSESSMENT: 1. Left flank pain. 2. Status post stent replacement. 3. Generalized weakness. 4. Deconditioning and difficulty walking. 5. History of multiple sclerosis. 6. History of sarcoidosis. 7. Symptomatic anemia status post 2 blood transfusions. PLAN: The patient is currently on Levaquin. She is very deconditioned, lives by herself, not safe to send her home. Requested for TCU evaluation. Once patient is accepted, she can be transferred to TCU. Rad Onofre MD
--- NOTE | 2017-04-23 04:15 | CON ---
GASTROENTEROLOGY CONSULTATION DATE: 04/22/2017 REQUESTING PHYSICIAN: Rad Onofre MD REASON FOR CONSULT: I have been asked to see this 62-year-old female who was admitted to the hospital on 04/17/2017, for generalized weakness, dyspnea on exertion, and chronic anemia, requiring iron infusions, and was found to be profoundly anemic with a hemoglobin of 7. She denied any chest pain, nausea, vomiting, rectal bleeding, or melena. The patient has a history of chronic anemia dating back to many years, felt to be secondary to poor iron absorption, status post gastric bypass surgery over 10 years ago. She has had multiple endoscopies and colonoscopies in the past. She had an attempted colonoscopy last year, but this could not be performed due to poor bowel prep. The patient is on chronic opiate pain medications for chronic pain from her multiple sclerosis. She also has a history of left kidney stones requiring left ureteral stent placement. On this hospitalization, she is found to have heme-positive stools, but denies any rectal bleeding or melena. CT scan of the abdomen and pelvis x2 performed this hospitalization showed left hydronephrosis with ureteral stent in place as well as copious amount of stool throughout the colon and ascites. PAST MEDICAL HISTORY: As above. She has a history of chronic iron deficiency anemia, multiple sclerosis, sarcoidosis, chronic pain syndrome, hypertension, and left renal stone. PAST SURGICAL HISTORY: Notable for gastric bypass, cholecystectomy, appendectomy. SOCIAL HISTORY: She is a former cigarette smoker, having quit many years ago. She denies alcohol use. FAMILY HISTORY: Noncontributory. REVIEW OF SYSTEMS: A 14-point review of systems is notable for generalized weakness and left flank pain from recent ureteral stent placement. HOME MEDICATIONS: Include oxycodone, BuSpar, Celexa, Neurontin, Lasix, Mobic, and potassium. PHYSICAL EXAMINATION: GENERAL: Chronically ill-appearing female lying in bed, in no acute distress. VITAL SIGNS: Reveal temperature of 98.5, blood pressure 101/69, heart rate of 90. HEENT: Reveals sclerae to be white. Conjunctivae pink. NECK: Supple. CHEST: Reveals lungs to be clear. HEART: Exam reveals a regular rate and rhythm. ABDOMEN: Soft. There is mild left flank tenderness. There is no rebound. There is no guarding. EXTREMITIES: Show mild pedal edema. She does appear to have mild anasarca throughout her extremities and torso. LABORATORY DATA: Revealed hemoglobin up to 10.8 after blood transfusion, white blood cell count 9.6. Chemistries revealed sodium of 131, bicarb of 34, BUN 21, creatinine 1.3, albumin of 2. IMPRESSION: 1. A 62-year-old female with longstanding iron deficiency anemia felt to be due to poor iron absorption secondary to gastric bypass surgery many years ago. Her stool is positive for occult blood, but she denies any overt gastrointestinal bleeding. 2. Chronic constipation due to chronic opiate use. 3. Left hydronephrosis with ureteral stone, status post ureteral stent placement. 4. Multiple sclerosis. 5. Sarcoidosis. 6. Hypoalbuminemia most likely secondary to malnutrition. RECOMMENDATIONS: 1. Would continue iron infusions. 2. We will start the patient on MiraLax 17 g twice a day for chronic constipation secondary to chronic opiate use. 3. The patient has been instructed to follow up with me as an outpatient for outpatient endoscopy and colonoscopy. Omid Sheridan MD
== END 2017-04-22 20:46 | DRG 812 ==
LOC: ED 01:34 → ERH 05:29 → 3RNO 06:57
PROVIDERS: ADMIT Internal Medicine; ATTEND Internal Medicine
PROC: 30233N1 Transfusion of Nonautologous Red Blood Cells into Peripheral Vein, Percutaneous Approach (ICD-10-PCS; 2017-04-17)
PROC: BT1F1ZZ Fluoroscopy of Left Kidney, Ureter and Bladder using Low Osmolar Contrast (ICD-10-PCS; 2017-04-20)
PROC: 0T9B80Z Drainage of Bladder with Drainage Device, Via Natural or Artificial Opening Endoscopic (ICD-10-PCS; 2017-04-20)
PROC: 0T778DZ Dilation of Left Ureter with Intraluminal Device, Via Natural or Artificial Opening Endoscopic (ICD-10-PCS; principal; 2017-04-20 08:30)
PROC: 0TP98DZ Removal of Intraluminal Device from Ureter, Via Natural or Artificial Opening Endoscopic (ICD-10-PCS; 2017-04-20 08:30)
DX: D64.9 Anemia, unspecified (principal); E44.0 Moderate protein-calorie malnutrition; N11.1 Chronic obstructive pyelonephritis; G35 Multiple sclerosis; I10 Essential (primary) hypertension; I08.1 Rheumatic disorders of both mitral and tricuspid valves; D86.0 Sarcoidosis of lung; M17.0 Bilateral primary osteoarthritis of knee; F32.9 Major depressive disorder, single episode, unspecified; K59.03 Drug induced constipation; T40.605A Adverse effect of unspecified narcotics, initial encounter; G89.4 Chronic pain syndrome; F41.9 Anxiety disorder, unspecified; Z88.2 Allergy status to sulfonamides; Z88.0 Allergy status to penicillin; Z87.891 Personal history of nicotine dependence; Z98.84 Bariatric surgery status; Z79.891 Long term (current) use of opiate analgesic; Z68.30 Body mass index [BMI] 30.0-30.9, adult

== ENCOUNTER 2017-06-08 07:31 | Inpatient (IN) | payer MEDICARE ==
[2017-06-07 14:51] VITALS: BMI 25.6
[2017-06-08 08:27] LABS: BASO # 0.04 K/mm3 (0.0-2.0); EOS # 0.1 (0.0-0.7); EOS % 1.2 % (1.5-5.0); GRAN # 2.9 (1.4-6.5); GRAN % 69.5 % (50.0-68.0); HEMATOCRIT 24.9 % (36.0-48.0); LYMPH # 0.9 (1.2-3.4); LYMPH % 20.6 % (22.0-35.0); MEAN CELL VOLUME 89.6 fl (80.0-105.0); MEAN CORPUSCULAR HEMOGLOBIN 29.9 pg (25.0-35.0); MEAN CORPUSCULAR HGB CONC 33.3 g/dl (31.0-37.0); MEAN PLATELET VOLUME 9.6 fl (7.0-11.0); MONO # 0.3 (0.1-0.6); MONO % 7.7 % (1.0-6.0); RED CELL DISTRIBUTION WIDTH 18.8 % (11.5-14.5); WHITE BLOOD COUNT 4.2 10^3/ul (4.5-11.0)
[2017-06-08 08:28] LABS: ALKALINE PHOSPHATASE 62 U/L (38-126); ALT/SGPT 53 U/L (7-56); AST/SGOT 46 U/L (14-36); BILIRUBIN,TOTAL 0.2 mg/dL (0.2-1.3); CALCIUM 7.6 mg/dL (8.4-10.5); CARBON DIOXIDE 25 mmol/L (21-33); CHLORIDE 108 mmol/L (98-107); GFR AFRICAN-AMERICAN > 60; GLUCOSE,RANDOM 75 mg/dL (70-110); POTASSIUM 3.5 mmol/L (3.6-5.0); SODIUM 135 mmol/L (132-148); TOTAL PROTEIN 4.4 g/dL (5.8-8.3)
[2017-06-08 08:32] LABS: ALB/GLOB RATIO 0.7 (1.1-1.8); BLOOD UREA NITROGEN 21 mg/dL (7-21)
[2017-06-08] MEDS ORDERED: Propofol 10 mg/ml Inj (20 ML) ONE (09:51)
[2017-06-08] MEDS ORDERED: Lidocaine 1% Inj (20ml) ONE (09:52)
[2017-06-08] MEDS ORDERED: Gentamicin 80 mg/2mL Inj. ONE (10:09)
[2017-06-08] MEDS ORDERED: Gentamicin 80 mg/2mL Inj. IVPB ONE (10:09)
[2017-06-08] MEDS ORDERED: ePHEDrine 50 mg/ml Inj ONE (10:15)
[2017-06-08] MEDS ORDERED: DiphenhydrAMINE 50 mg/ml Inj ONE (10:16)
[2017-06-08] MEDS ORDERED: Iohexol 240 (50 ml) IVP ONE (10:17)
[2017-06-08] MEDS ORDERED: Iohexol 240 (50 ml) ONE (10:18)
[2017-06-08] MEDS ORDERED: HYDROmorphone 0.5 mg/0.5 ml ISec IVP PRN ×2 (10:39→10:47)
--- NOTE | 2017-06-08 15:19 | RAD ---
PROCEDURE: Retrograde pyelogram HISTORY: REPLACE STENT COMPARISON: TECHNIQUE: Fluoroscopy was provided in the operating room. 15.4 seconds of fluoro time were used. Ten images were submitted FINDINGS: The study shows replacement of a left ureteral stent. There is a fracture of the stent with a residual fragment proximally. The wire is passed beyond this fragment. The new ureteral stent is placed with the proximal pigtail in the upper pole calyx. The distal pigtail is in the bladder. The study was performed by Dr. Farzana Bhatti IMPRESSION: As above
[2017-06-09] MEDS ORDERED: HYDROmorphone 0.5 mg/0.5 ml ISec IVP STA (01:44)
[2017-06-09] MEDS ORDERED: PERCOCET PO PRN (09:38)
[2017-06-09 09:51] LABS: HEMATOCRIT 24.6 % (36.0-48.0); MEAN CELL VOLUME 88.8 fl (80.0-105.0); MEAN CORPUSCULAR HEMOGLOBIN 29.6 pg (25.0-35.0); MEAN CORPUSCULAR HGB CONC 33.3 g/dl (31.0-37.0); MEAN PLATELET VOLUME 9.1 fl (7.0-11.0); RED CELL DISTRIBUTION WIDTH 18.9 % (11.5-14.5); WHITE BLOOD COUNT 4.3 10^3/ul (4.5-11.0)
[2017-06-09] MEDS ORDERED: Meropenem 500 MG in Sodium Chloride 0.9% 50 ML IVPB SCH (10:00)
[2017-06-09] MEDS ORDERED: PrednisoLONE 15 mg/5 ml Oral Syrup (240 ml) PO SCH (10:00)
[2017-06-09 10:10] LABS: ALB/GLOB RATIO 0.7 (1.1-1.8); ALKALINE PHOSPHATASE 61 U/L (38-126); ALT/SGPT 47 U/L (7-56); AST/SGOT 42 U/L (14-36); BILIRUBIN,TOTAL < 0.1 mg/dL (0.2-1.3); BLOOD UREA NITROGEN 17 mg/dL (7-21); CALCIUM 7.2 mg/dL (8.4-10.5); CARBON DIOXIDE 26 mmol/L (21-33); CHLORIDE 108 mmol/L (98-107); GFR AFRICAN-AMERICAN > 60; GLUCOSE,RANDOM 80 mg/dL (70-110); POTASSIUM 4.1 mmol/L (3.6-5.0); SODIUM 135 mmol/L (132-148); TOTAL PROTEIN 3.8 g/dL (5.8-8.3)
[2017-06-09] MEDS: Meloxicam 7.5 MG TAB PO SCH (10:40)
[2017-06-09] MEDS ORDERED: Pneumococcal 23-Valent Vaccine IM ONE (18:02)
[2017-06-09] MEDS ORDERED: Influenza Vaccine 60 mcg/0.5 mL SYR (4YR UP) IM ONE (18:02)
[2017-06-09] MEDS ORDERED: HYDROmorphone 0.5 mg/0.5 ml ISec IM STA (23:22)
--- NOTE | 2017-06-10 00:22 | CON ---
DATE: HISTORY OF PRESENT ILLNESS: The patient is a 62-year-old, patient of Dr. Wolff, was having left flank pain. The patient's stent was removed, but she started to have pain again, so she was brought to [facility] by Dr. Bhatti and had stent placed. The patient states she has been lately feeling very weak and tired. Her legs have been swollen. She was unable to visit any doctor for consultation. Complain of decreased appetite, complain of generalized aches and pain, so the patient is being admitted for further workup and management. PAST MEDICAL HISTORY: She has significant past medical history for: 1. Hypertension. 2. History of multiple sclerosis. 3. Sarcoidosis. 4. History of nephrolithiasis. 5. Had recently stent removed, but developed left flank pain again, so had stent placed this morning. PAST SURGICAL HISTORY: Significant for cholecystectomy and appendectomy. FAMILY HISTORY: Not relevant. SOCIAL HISTORY: She was a heavy smoker, quit 20 years ago. Denies alcohol or drug use. ALLERGIES: SHE IS ALLERGIC TO CODEINE, PENICILLIN, AND SULFA. MEDICATIONS AT HOME: She is on oxycodone 40 mg q.12 hours, BuSpar 7.5 daily, and CoQ10. She is on potassium. She is on Mobic 7.5 daily, Claritin 10 mg daily, Lactobacillus, gabapentin, Lasix, and Celexa. REVIEW OF SYSTEMS: Difficulty walking and increasing shortness of breath on walking. Significant for generalized weakness and looks pale with significant bilateral leg swelling. PHYSICAL EXAMINATION: GENERAL: She is awake, alert, oriented, and communicative. VITAL SIGNS: She is afebrile, pulse 83, respirations 20, and blood pressure 106/72. LUNGS: Bilateral fair airflow, decreased at bases. HEART: S1 and S2 audible. ABDOMEN: Soft and nontender. No rebound. No guarding. NEUROLOGIC: The patient is awake, alert, and oriented. EXTREMITIES: Bilateral leg +4 edema. LABORATORY DATA: WBC 4.3, hemoglobin 8.2, hematocrit 24.6, and platelet 199. Chemistry; sodium 135, potassium 4.1, chloride 108, CO2 of 26, BUN 17, creatinine 0.8, blood sugar of 80, and albumin of 1.5. ASSESSMENT: 1. Generalized weakness. 2. Acute on chronic anemia. 3. Status post left ureteral stent placement. 4. Status post cystoscopy and lithotripsy. 5. Bilateral leg edema. 6. History of sarcoidosis. 7. History of multiple sclerosis. PLAN: We will renew her usual medications. We will start her on Lasix 40 IV q.12 hours and supplement with potassium. Followup CBC and CMP in a.m. Rad Onofre MD
[2017-06-10] MEDS: ADDERALL 20 MG PO SCH ×2 (06:58→10:29)
[2017-06-10] MEDS: BIOTIN 10000 MCG PO SCH ×2 (06:58→10:29)
[2017-06-10 07:04] LABS: BASO # 0.03 K/mm3 (0.0-2.0); BASO % 0.8 % (0.0-3.0); EOS # 0.1 (0.0-0.7); EOS % 1.3 % (1.5-5.0); GRAN # 1.79 (1.4-6.5); GRAN % 46.2 % (50.0-68.0); LYMPH # 1.5 (1.2-3.4); LYMPH % 39.3 % (22.0-35.0); MEAN CELL VOLUME 88.8 fl (80.0-105.0); MEAN CORPUSCULAR HGB CONC 33.8 g/dl (31.0-37.0); MEAN PLATELET VOLUME 8.8 fl (7.0-11.0); MONO # 0.5 (0.1-0.6); MONO % 12.4 % (1.0-6.0); WHITE BLOOD COUNT 3.9 10^3/ul (4.5-11.0)
[2017-06-10] MEDS: OXYCODONE 40 MG PO SCH ×2 (07:04→10:29)
[2017-06-10 07:29] LABS: HEMATOCRIT 23.7 % (36.0-48.0)
[2017-06-10 08:02] LABS: ALB/GLOB RATIO 0.7 (1.1-1.8); ALKALINE PHOSPHATASE 60 U/L (38-126); ALT/SGPT 48 U/L (7-56); AST/SGOT 40 U/L (14-36); BILIRUBIN,TOTAL 0.3 mg/dL (0.2-1.3); BLOOD UREA NITROGEN 19 mg/dL (7-21); CALCIUM 7.1 mg/dL (8.4-10.5); CARBON DIOXIDE 25 mmol/L (21-33); CHLORIDE 110 mmol/L (98-107); GFR AFRICAN-AMERICAN > 60; GLUCOSE,RANDOM 74 mg/dL (70-110); POTASSIUM 3.9 mmol/L (3.6-5.0); SODIUM 134 mmol/L (132-148); TOTAL PROTEIN 3.8 g/dL (5.8-8.3)
--- NOTE | 2017-06-10 10:13 | PCM.URO ---
Urology Progress Note - Objective Lab Results Last 24 Hours: Laboratory Results - last 24 hr 06/10/17 06/10/17 06:30 06:30 WBC 3.9 L RBC 2.67 L Hgb 8.0 L Hct 23.7 L MCV 88.8 MCH 30.0 MCHC 33.8 RDW 19.0 H Plt Count 177 MPV 8.8 Gran % 46.2 L Lymph % (Auto) 39.3 H [facility] % (Auto) 12.4 H Eos % (Auto) 1.3 L Baso % (Auto) 0.8 Gran # 1.79 Lymph # 1.5 [facility] # 0.5 Eos # 0.1 Baso # 0.03 Sodium 134 Potassium 3.9 Chloride 110 H Carbon Dioxide 25 Anion Gap 3 L BUN 19 Creatinine 0.8 Est GFR ( Amer) > 60 Est GFR (Non-Af Amer) > 60 Random Glucose 74 Calcium 7.1 L Total Bilirubin 0.3 AST 40 H ALT 48 Alkaline Phosphatase 60 Total Protein 3.8 L Albumin 1.6 L Globulin 2.2 Albumin/Globulin Ratio 0.7 L Intake & Output: Intake & Output 06/09/17 06/10/17 06/10/17 18:59 06:59 18:59 Intake Total 720 Balance 720 Weight 127 lb Intake: Oral 720 Other: Voiding Method Bedside Commode # Voids Urine, Voided 3 # Bowel Movements 1 Vital Signs: Vital Signs - 24 hr 06/09/17 06/09/17 06/10/17 16:00 17:36 08:00 Temperature 98.5 F 98.5 F 98.0 F Pulse Rate 93 H 65 73 Respiratory 20 20 18 Rate Blood Pressure 104/72 120/78 101/60 O2 Sat by Pulse 98 98 Oximetry
[2017-06-10] MEDS: Potassium Chloride 10 mEq ER Tab PO SCH (10:26)
[2017-06-10] MEDS: Meloxicam 7.5 MG TAB PO SCH (10:27)
[2017-06-10] MEDS: VITAMIN E PO SCH (10:29)
[2017-06-10] MEDS: UBIDECARENONE PO SCH (10:29)
[2017-06-10] MEDS ORDERED: Oxycodone/Acetaminophen 5/325 mg Tab PO PRN (15:25)
--- NOTE | 2017-06-10 19:52 | PN ---
DATE: SUBJECTIVE: The patient is a 62-year-old, complain of generalized weakness, complain of bilateral leg swelling, complain of back pain. PHYSICAL EXAMINATION VITAL SIGNS: She is afebrile, pulse 73, respirations 18, and blood pressure 130/77. LUNGS: Bilateral good airflow. No rhonchi or crackle. HEART: S1 and S2, audible. ABDOMEN: Soft, nontender. No rebound. No guarding. NEUROLOGIC: She is awake, alert, oriented, ambulatory. EXTREMITIES: Bilateral legs +2 edema. LABORATORY DATA: WBC is 3.9, hemoglobin 8, hematocrit 23.7, and platelets of 177. Chemistry; sodium 134, potassium 3.9, chloride 110, CO2 25, BUN of 19, creatinine of 0.8, blood sugar of 74. ASSESSMENT: 1. Left hydronephrosis status post stent placement. 2. Symptomatic anemia. 3. Bilateral leg edema. 4. History of multiple sclerosis. 5. History of depression and anxiety disorder. PLAN: We will give her 2 blood transfusion. She will get Lasix prior to second infusion. We will followup her CBC and CMP in a.m. Rad Onofre MD
[2017-06-10] MEDS: oxyCODONE 20 mg ER Tab (oxyCONTIN) PO SCH (22:09)
[2017-06-11 09:38] LABS: BASO # 0.03 K/mm3 (0.0-2.0); BASO % 0.7 % (0.0-3.0); EOS # 0.1 (0.0-0.7); GRAN # 2.09 (1.4-6.5); GRAN % 51.2 % (50.0-68.0); HEMATOCRIT 35.9 % (36.0-48.0); LYMPH # 1.4 (1.2-3.4); LYMPH % 34.3 % (22.0-35.0); MEAN CELL VOLUME 88.9 fl (80.0-105.0); MEAN CORPUSCULAR HEMOGLOBIN 29.7 pg (25.0-35.0); MEAN CORPUSCULAR HGB CONC 33.4 g/dl (31.0-37.0); MEAN PLATELET VOLUME 9.7 fl (7.0-11.0); MONO # 0.5 (0.1-0.6); MONO % 11.8 % (1.0-6.0); RED CELL DISTRIBUTION WIDTH 17.7 % (11.5-14.5); WHITE BLOOD COUNT 4.1 10^3/ul (4.5-11.0)
[2017-06-11 10:04] LABS: ALB/GLOB RATIO 0.8 (1.1-1.8); ALKALINE PHOSPHATASE 83 U/L (38-126); ALT/SGPT 55 U/L (7-56); AST/SGOT 53 U/L (14-36); BILIRUBIN,TOTAL 0.3 mg/dL (0.2-1.3); BLOOD UREA NITROGEN 17 mg/dL (7-21); CALCIUM 7.5 mg/dL (8.4-10.5); CARBON DIOXIDE 25 mmol/L (21-33); CHLORIDE 106 mmol/L (98-107); GFR AFRICAN-AMERICAN > 60; GLUCOSE,RANDOM 78 mg/dL (70-110); POTASSIUM 3.6 mmol/L (3.6-5.0); SODIUM 135 mmol/L (132-148); TOTAL PROTEIN 4.6 g/dL (5.8-8.3)
[2017-06-11] MEDS: Potassium Chloride 10 mEq ER Tab PO SCH (10:39)
[2017-06-11] MEDS: oxyCODONE 20 mg ER Tab (oxyCONTIN) PO SCH ×2 (10:40→22:08)
[2017-06-11] MEDS: Meloxicam 7.5 MG TAB PO SCH (10:42)
[2017-06-11] MEDS: UBIDECARENONE PO SCH (10:43)
[2017-06-11] MEDS: VITAMIN E PO SCH (10:43)
[2017-06-11] MEDS: BIOTIN 10000 MCG PO SCH (13:37)
[2017-06-11] MEDS: ADDERALL 20 MG PO SCH (13:37)
--- NOTE | 2017-06-12 02:45 | PN ---
DATE: SUBJECTIVE: The patient is a 62-year-old seen and examined, lying in bed, seems to be comfortable. Still complaint of constipation, complaint of bilateral leg swelling, left arm swelling, generalized weakness. PHYSICAL EXAMINATION VITAL SIGNS: She is afebrile. Pulse 57, respirations 20, blood pressure 115/76. LUNGS: Bilateral fair airflow. No rhonchi or crackle. HEART: S1 and S2 audible. ABDOMEN: Soft, nontender. No rebound. No guarding. NEUROLOGIC: She is awake and alert, able to communicate. Bilateral legs +2 edema. LABORATORY DATA: WBC 4.1, hemoglobin 12, hematocrit 35.9 and platelet of 165. Chemistry, sodium 135, potassium 3.6, chloride 106, CO2 of 25, BUN 17, creatinine 0.8, blood sugar of 78 and AST 53. ASSESSMENT: 1. Symptomatic anemia. 2. Hypoalbuminemia. 3. History of multiple sclerosis. 4. Chronic degenerative disk disease. 5. Left nephrolithiasis, status post stent placement. 6. History of sarcoidosis. 7. Chronic constipation secondary to narcotics. PLAN: I will give her Dulcolax suppository, they really work for her. We will follow up her electrolytes. She is on Lasix 40 IV daily. She received 2 blood transfusions. Followup hemoglobin has improved. Awaiting TCU evaluation and placement because of her deconditioning. Rad Onofre MD
[2017-06-12] MEDS: Potassium Chloride 10 mEq ER Tab PO SCH (09:13)
[2017-06-12] MEDS: ADDERALL 20 MG PO SCH (11:17)
[2017-06-12] MEDS: BIOTIN 10000 MCG PO SCH (13:25)
[2017-06-12] MEDS: oxyCODONE 20 mg ER Tab (oxyCONTIN) PO SCH ×2 (13:27→21:01)
[2017-06-12] MEDS: Meloxicam 7.5 MG TAB PO SCH (13:28)
[2017-06-12] MEDS: UBIDECARENONE PO SCH (16:33)
[2017-06-12] MEDS: VITAMIN E PO SCH (16:33)
--- NOTE | 2017-06-12 20:02 | PN ---
DATE: SUBJECTIVE: The patient is 62 years old, seen and examined, complains of generalized weakness, still complains of bilateral leg swelling. No nausea and vomiting. Scanty cough. Complains of back pain. PHYSICAL EXAMINATION: VITAL SIGNS: She is afebrile, pulse 68, respirations 18, blood pressure 152/77. LUNG: Bilateral good air flow. No rhonchi or crackle. HEART: S1 and S2 audible. No murmur. ABDOMEN: Soft. Nontender. No rebound. No guarding. NEUROLOGICAL: The patient is awake, alert, oriented, communicative, ambulatory. ASSESSMENT AND PLAN: 1. Multiple sclerosis. 2. Symptomatic anemia. 3. Status post left ureteral stent placement. 4. Depression. PLAN: We will diurese her. The patient states that she has the procedure scheduled for tomorrow for a placement of stent. We will follow her CBC and CMP. TCU evaluation has been requested. If accepted, can be transferred to TCU. Rad Onofre MD
[2017-06-12] MEDS ORDERED: POLYETHYLENE GLYCOL 3350 17 GM/Dose PACKET PO ONE (20:27)
[2017-06-13 06:56] LABS: URINE BILIRUBIN SMALL (NEGATIVE); URINE BLOOD LARGE (NEGATIVE); URINE GLUCOSE (UA) NEGATIVE (NEGATIVE); URINE KETONE TRACE mg/dL (NEGATIVE); URINE LEUKOCYTE ESTERASE NEGATIVE Leu/uL (NEGATIVE); URINE PROTEIN 100 mg/dL (<30 mg/dL); URINE UROBILINOGEN 0.2 E.U./dL (<1 E.U./dL)
[2017-06-13 07:02] LABS: URINE APPEARANCE CLOUDY (CLEAR); URINE COLOR YELLOW (YELLOW)
[2017-06-13 07:07] LABS: URINE RBC TNTC /hpf (0-2)
[2017-06-13 07:08] LABS: URINE BACTERIA MOD (NEG)
[2017-06-13] MEDS: Potassium Chloride 10 mEq ER Tab PO SCH (08:29)
[2017-06-13] MEDS: oxyCODONE 20 mg ER Tab (oxyCONTIN) PO SCH ×2 (11:09→21:24)
[2017-06-13] MEDS: Meloxicam 7.5 MG TAB PO SCH (11:10)
[2017-06-13] MEDS: BIOTIN 10000 MCG PO SCH (11:13)
[2017-06-13] MEDS: ADDERALL 20 MG PO SCH (11:13)
[2017-06-13] MEDS: UBIDECARENONE PO SCH (11:13)
[2017-06-13] MEDS: VITAMIN E PO SCH (11:13)
[2017-06-13] MEDS: POLYETHYLENE GLYCOL 3350 17 GM/Dose PACKET PO SCH (11:36)
[2017-06-13 14:34] LABS: HEMATOCRIT 36.4 % (36.0-48.0); MEAN CELL VOLUME 90.3 fl (80.0-105.0); MEAN CORPUSCULAR HEMOGLOBIN 29.8 pg (25.0-35.0); MEAN PLATELET VOLUME 9.9 fl (7.0-11.0); RED CELL DISTRIBUTION WIDTH 17.6 % (11.5-14.5); WHITE BLOOD COUNT 4.2 10^3/ul (4.5-11.0)
[2017-06-13 14:40] LABS: ALB/GLOB RATIO 0.7 (1.1-1.8); ALKALINE PHOSPHATASE 71 U/L (38-126); ALT/SGPT 53 U/L (7-56); AST/SGOT 44 U/L (14-36); BILIRUBIN,TOTAL 0.2 mg/dL (0.2-1.3); BLOOD UREA NITROGEN 15 mg/dL (7-21); CALCIUM 7.5 mg/dL (8.4-10.5); CARBON DIOXIDE 31 mmol/L (21-33); CHLORIDE 104 mmol/L (98-107); GFR AFRICAN-AMERICAN > 60; GLUCOSE,RANDOM 81 mg/dL (70-110); POTASSIUM 3.5 mmol/L (3.6-5.0); SODIUM 137 mmol/L (132-148); TOTAL PROTEIN 4.9 g/dL (5.8-8.3)
[2017-06-13] MEDS ORDERED: HYDROmorphone 0.5 mg/0.5 ml ISec IVP PRN (16:38)
[2017-06-13] MEDS ORDERED: Lactated Ringer's 1,000 ML IV SCH ×2 (16:45→18:00)
[2017-06-13] MEDS ORDERED: Clindamycin 150 mg/mL Inj ONE (16:57)
[2017-06-13] MEDS ORDERED: Lidocaine 2% Jelly (Uro-Jet) ONE (16:57)
[2017-06-13] MEDS ORDERED: Iohexol 240 (50 ml) ONE (16:58)
[2017-06-13] MEDS ORDERED: Propofol 10 mg/ml Inj (20 ML) ONE (17:10)
[2017-06-13] MEDS ORDERED: Midazolam 2 MG/2 ML VIAL ONE (17:11)
[2017-06-13] MEDS ORDERED: Gentamicin 80mg/50ml NS 160 MG/100 ML BAG IVPB ONE (17:20)
[2017-06-13] MEDS ORDERED: Gentamicin 80 mg/2mL Inj. IVPB ONE (17:20)
[2017-06-13] MEDS ORDERED: Etomidate 20 mg/10ml Inj IV ONE (17:43)
[2017-06-13] MEDS ORDERED: Oxycodone/Acetaminophen 5/325 mg Tab PO PRN (18:31)
[2017-06-13] MEDS ORDERED: Potassium Chloride 20 mEq ER Tab PO ONE (20:39)
--- NOTE | 2017-06-14 08:08 | PCM.URO ---
Urology Progress Note - Objective Lab Studies: Reviewed (stent removed , pt stable for transfer or discharge) Lab Results Last 24 Hours: Laboratory Results - last 24 hr 06/13/17 06/13/17 14:20 14:20 WBC 4.2 L RBC 4.03 Hgb 12.0 Hct 36.4 MCV 90.3 MCH 29.8 MCHC 33.0 RDW 17.6 H Plt Count 156 MPV 9.9 Sodium 137 Potassium 3.5 L Chloride 104 Carbon Dioxide 31 Anion Gap 6 L BUN 15 Creatinine 0.7 Est GFR ( Amer) > 60 Est GFR (Non-Af Amer) > 60 Random Glucose 81 Calcium 7.5 L Total Bilirubin 0.2 AST 44 H ALT 53 Alkaline Phosphatase 71 Total Protein 4.9 L Albumin 2.1 L Globulin 2.8 Albumin/Globulin Ratio 0.7 L Intake & Output: Intake & Output 06/13/17 06/14/17 06/14/17 18:59 06:59 18:59 Intake Total 600 1020 Balance 600 1020 Intake: Oral 600 1020 Other: # Voids Urine, Voided 6 4 # Bowel Movements 1 0 Vital Signs: Vital Signs - 24 hr 06/13/17 06/13/17 06/13/17 11:11 16:00 16:30 Temperature 97.5 F L 97.6 F Pulse Rate 65 58 L Respiratory 20 20 Rate Blood Pressure 112/77 105/79 111/60 O2 Sat by Pulse 92 L 94 L Oximetry 06/13/17 06/13/17 06/13/17 18:00 18:15 18:30 Temperature 97.5 F L Pulse Rate 61 59 L 58 L Respiratory 12 14 12 Rate Blood Pressure 142/85 130/82 122/79 O2 Sat by Pulse 100 99 98 Oximetry 06/13/17 18:45 Temperature Pulse Rate 56 L Respiratory 14 Rate Blood Pressure 131/80 O2 Sat by Pulse 99 Oximetry
[2017-06-14 08:20] VITALS: PULSE 60; RESP 16; TEMP 97; O2SAT 95
[2017-06-14 08:31] LABS: BLOOD UREA NITROGEN 17 mg/dL (7-21); CALCIUM 7.5 mg/dL (8.4-10.5); CARBON DIOXIDE 32 mmol/L (21-33); CHLORIDE 108 mmol/L (98-107); GFR AFRICAN-AMERICAN > 60; GLUCOSE,RANDOM 81 mg/dL (70-110); SODIUM 139 mmol/L (132-148)
--- NOTE | 2017-06-14 09:26 | DS ---
HISTORY AND HOSPITAL COURSE: The patient is a 62-year-old female seen and examined. The patient was admitted initially for cystoscopy and was found to be anemic, short of breath, bilateral leg swelling and left arm swelling, received two blood transfusion and had diuresis done. She complains of generalized weakness, difficulty walking and lives alone, so needed rehab and is being transferred to TCU. PHYSICAL EXAMINATION: GENERAL: On examination, she is awake, alert, oriented, and communicative. VITAL SIGNS: She is afebrile, pulse is 58, respirations are 94, respirations are 20 and blood pressure is 111/60. Pulse oximetry is 94%. LUNGS: Bilateral fair airflow. No rhonchi or crackle. CARDIOVASCULAR: Heart is S1 and S2, audible. GASTROINTESTINAL: Abdomen is soft and nontender. No rebound and no guarding. NEUROLOGIC: She is awake, alert, and oriented. She has generalized weakness. EXTREMITIES: Bilateral leg +2 edema. LABORATORY DATA: WBC is 4.2, hemoglobin is 12, hematocrit is 36, and platelets are 156. Chemistries: Sodium of 137, potassium of 3.5, chloride of 104, CO2 of 31, BUN of 15, creatinine 0.7, and blood sugar of 81. Urinalysis is unremarkable. ASSESSMENT AND PLAN: 1, Status post cystoscopy and left ureteroscopy and removal of left retained stent. 2. Symptomatic anemia, status post blood transfusion. 3, Hypertension. 4. Multiple sclerosis. 5. History of sarcoidosis. PLAN: The patient will have stent removed today. After that if she is hemodynamically stable, she will be transferred to TCU and we will follow up. Rad Onofre MD
[2017-06-14] MEDS: oxyCODONE 20 mg ER Tab (oxyCONTIN) PO SCH (09:55)
[2017-06-14] MEDS: Potassium Chloride 10 mEq ER Tab PO SCH (09:58)
[2017-06-14] MEDS: Meloxicam 7.5 MG TAB PO SCH (09:58)
[2017-06-14] MEDS: POLYETHYLENE GLYCOL 3350 17 GM/Dose PACKET PO SCH (09:59)
[2017-06-14] MEDS: BIOTIN 10000 MCG PO SCH (10:00)
[2017-06-14] MEDS: VITAMIN E PO SCH (10:01)
[2017-06-14] MEDS: UBIDECARENONE PO SCH (10:01)
[2017-06-14] MEDS: ADDERALL 20 MG PO SCH (10:01)
[2017-06-14 10:07] VITALS: BP 108/74
--- NOTE | 2017-06-15 01:05 | DS ---
HISTORY OF PRESENT ILLNESS: The patient is 62 years old, seen and examined, doing well, had stent placed yesterday that fell out last night, followed by bleeding, but the patient stated now she passed lot of stones and feel relieved and is happy about it, complained of back pain. Patient complained of generalized weakness and difficulty walking, being transferred to TCU for further diuresis and close monitoring. PHYSICAL EXAMINATION: GENERAL: On examination, she is awake, alert, oriented, communicative. VITAL SIGNS: She is afebrile, pulse 68, respirations 16, blood pressure 108/74. LUNGS: Bilateral fair airflow. No rhonchi or crackle. HEART: S1, S2 audible. ABDOMEN: Soft, nontender. No rebound. No guarding. NEUROLOGIC: She is awake, alert, oriented, communicative. LABORATORY EXAM: Sodium 139, potassium 5.0, chloride 108, CO2 of 32, BUN 17, creatinine 0.7, blood sugar of 81. LFTs are within normal limits. ASSESSMENT: 1. Status post stent removal. 2. Bilateral leg edema. 3. Multiple sclerosis. 4. History of sarcoidosis. 5. Status post hematuria, resolving. 6. Deconditioning and difficulty walking. PLAN: We will continue the patient on current medication. She is being transferred to TCU for rehab and close monitoring Rad Onofre MD
--- NOTE | 2017-06-15 10:20 | RAD ---
PROCEDURE: STENT REMOVAL / STENT INSERTION / REMOVAL RETAINED STENT FRAGMENT HISTORY: STENT REMOVAL / STENT INSERTION / REMOVAL RETAINED STENT FRAGMENT COMPARISON: 06/08/2017 retrograde pyelogram TECHNIQUE: Total fluoroscopic time utilized during the procedure: 21.8 seconds. Total dose 10.53 mGy cm squared FINDINGS: Submitted images from the current procedure: 23 Please refer to the physician's notes performing the procedure. IMPRESSION: Less than 1 hour fluoroscopic time utilized during performance of the procedure
--- NOTE | 2017-06-22 10:00 | HP ---
UROLOGY HISTORY AND PHYSICAL HISTORY OF PRESENT ILLNESS: The patient is a very pleasant lady, who we know quite well, who presents with urolithiasis. She is very pleasant, but extremely noncompliant for several reasons including her general health and general weakness. Seen many previously dictated notes where she required hospital admission and then staying in the [facility]itional [facility]. At this point, the patient is admitted as an emergency admission. We brought her in for stone treatment, but afterwards, findings of the operative report find remnant stones. We had difficulty changing stent. We were able to get a new stent in. The patient still has what appears to be Steinstrasse up in the kidney. She now has a new stent in location and we are bringing her in the hospital as an emergency admission and we are going to take care of her as quickly as possible during this hospital stay, see below. The patient is noted to have stone disease, hydronephrosis, hematuria and we are treating them. PAST MEDICAL AND SURGICAL HISTORY: Significant for she has underlying depression, anxiety, and multiple medical issues. She is under the care of doctor. SOCIAL HISTORY: On a social note, she is . Her son helps her. In fact, I think she lives both here and with him. She has a few children, one work with [employer], but otherwise unremarkable history. PHYSICAL EXAMINATION: GENERAL: Very thin frail female. She is no apparent distress currently. VITAL SIGNS: Relatively within normal limits. LUNGS: Clear. HEART: S1 and S2. ABDOMEN: Overall soft and nontender. No CVA tenderness. No pelvic or rectal masses are detected. LABORATORY DATA: See chart (her severe anemia as noted. Labs are on the chart). DIAGNOSES: Hematuria and urolithiasis. PLAN: Ms. Mclaughlin is an extremely pleasant lady, who needs assistance for care. At this point, we are going to ask her to stay in the hospital. She has actually consented to staying in. She is extremely pleasant but it is difficulty to try to rid her body of all the stones. It is difficult for her to travel back and forth. So at this point, today, see the operative report, we changed her stent. But, it looks like there is Steinstrasse up in the kidney. So we are going to bring for an emergency admission and then try within a few days to change her to go back and repeat ureteroscopy with laser lithotripsy. We did discuss the idea of shockwave lithotripsy, but I do not think the patient be able to make it up to [place], so we are going to do it here as quickly as possible. DIAGNOSES: Urolithiasis, hematuria, anemia, multiple medical issues. PLAN: At this time is an emergency admission. Keep her in the hospital. We will plan for a repeat ureteroscopy and laser lithotripsy and then further plans. We will follow. The patient will be maintained on antibiotics. Jareth Bhatti MD
--- NOTE | 2017-06-22 14:19 | OP ---
PROCEDURE DATE: 06/13/2017 UROLOGY OPERATIVE REPORT PREOPERATIVE DIAGNOSES: Urolithiasis, hematuria, hydronephrosis. POSTOPERATIVE DIAGNOSES: Urolithiasis, hematuria, hydronephrosis, and retained stent material. PROCEDURES: Cystoscopy, ureteroscopy, retrograde pyelogram on the left side, left ureteroscopy, removal of a left double J-stent fragment from the kidney itself. BLOOD LOSS: Less than 10 mL. COMPLICATIONS: There were no complications. INDICATIONS: A very pleasant, but extremely noncompliant lady, very frail. See the history and physical for further details. I admitted and saw the patient with kidney stones, then due to her general health status and also noncompliance, she never followed up. We then tried to change her stent, it was completely encrusted. See many previously dictated notes. Most recently, I refused just to change the stent. At that time, I thought there were stones up in the upper ureter, and see the previously dictated note. I was happy just to be able to exchange a stent and put a new stent in. Today, upon removal, what look like stone fragments, actually is still keeping the same shape and it turns out to retain piece of an upper portion of a double J-stent, which we are able to remove intact completely. See the body of the report. At this point, actually by x-ray criteria, the patient has no longer any stones or fragments or anything noted. See many previously dictated notes regarding this patient and her care. DESCRIPTION OF PROCEDURE: After obtaining informed consent, explaining to the patient risks, benefits, and alternatives, the plan was to assist with cystoscopy, ureteroscopy, laser lithotripsy for the stone. It turns out though that it is not a collection of stones which look like Steinstrasse's, but in fact, it is actually a piece of a remnant of the stent. Which, in fact, has now migrated proximally from the left-sided films. See the previously dictated note and the previous operative note where we were changing the stent, but now this is now in the kidney. But, we are able to retrieve it intact, completely. After obtaining informed consent, the patient was placed on the table. Routine monitor was placed. Time-out was called. The patient was consented for a cystourethroscopy and laser lithotripsy. But as mentioned, we in fact, do not see a Steinstrasse's set of stones, but in fact the stone encrustation around the stent. The patient was given antibiotic prophylaxis. She is already on antibiotics. Time-out was called to confirm patient and positioning. Cystoscope via the urethra. The old double-J stent was removed. Letter St[employer] films were taken, and in fact, the original set of stones that was seen a couple of days ago that looked like a line of Steinstrasse's in the proximal ureter are no longer seen. In fact, now it is up in the kidney. We then removed the old stent without difficulty. It is only a few days old now. At this point, a wire was passed up to the kidney without difficulty. Further, as we are evaluating, we see this collection, and in fact, it looks like it has the shape of a stone. We introduced the semi-rigid ureteroscope, short-rigid ureteroscope, all the way up to the renal pelvis. Now, we inspect closely and we see that it is the stone fragment. Once we recognize it, we actually used a grasping forceps. With my assistance, the entire procedure was done with fluoroscopic imaging and also with a camera. We are able to grab it, pull it into the scope and pull it down with some difficulty, but with only on the stent. Not grabbing any sandoval. Actually, it takes a little manipulation to grab it, but once we grab it, it slides down nicely, we can follow it under fluoroscopic imaging. I have a safety wire in place. It pulled down actually relatively gentle in shape surprisingly. I was prepared once I brought it down if need be to laser, but it just came down very very easily. We further inspected it, all looks intact. I now repeated ureteroscopy just to inspect the sandoval of the ureter. We now went back up to the kidney without difficulty, and everything is grossly intact. At this point, I put a double J-stent with danzamzam (with the plan to remove). Especially, given the patient's general health status and her compliance, I would like to remove her stent if this could be possible. Overall, the patient tolerated the procedure well without complications. Jareth Bhatti MD MTDD
--- NOTE | 2017-06-23 16:10 | OP ---
PROCEDURE DATE: 06/08/2017 UROLOGY OPERATIVE REPORT PREOPERATIVE DIAGNOSES: Left hydronephrosis, left-sided urolithiasis, hematuria. POSTOPERATIVE DIAGNOSES: Left hydronephrosis, left-sided urolithiasis, hematuria. PROCEDURES PERFORMED: Cystoscopy, removal of a left double J-stent, and insertion a left double J-stent with some difficulty. COMPLICATIONS: There were no complications. BLOOD LOSS: Less than 10 mL. FINDINGS: 1. Normal bladder mucosa save that of the irritation around the stent. 2. In the upper ureter, there is what appears to be Steinstrasse, see the plans listed below in the addendum. 3. At the termination of the procedure, the patient has a new double J-stent in. The previously encrusted stent was removed and specimen sent to lab. INDICATIONS: See history and physical for further details. A very pleasant lady, but extremely noncompliant. She is also very frail. She is very pleasant about the whole matter, but it is very difficult for her to get around and get in. We discussed options, mostly did this by phone. She appeared today for a cysto and possible stent removal; however, I discussed with her that if she has remnant stone, we are going to do the above listed procedure to change the stent, and I would like it to bring it to the stone center except that she is not a great candidate, so we did the above listed procedure. See the addendum at the end, but I will mention now that we actually are going to admit the patient as an emergency admission. Keep her here for a few days and then go back in for the stones. DESCRIPTION OF PROCEDURE: After obtaining informed consent, the patient was placed on the table. Routine monitor was placed. Time-out was called to confirm the patient positioning. The patient was given antibiotic prophylaxis. The procedure begin in the following session: Cystoscope introduced via urethra, we identified the ureteral stent. It is very encrusted to the point that although we are able to take it out, it cannot pass the wire through it. We passed a wire adjacent to it. In fact, the wire passes up to what looks like Steinstrasse. Then, we removed the old stent. Then using the open-ended technique of twisting the catheter around, we injected contrast and confirmed our positioning. We were then able to negotiate a wire pass. We passed this, what appears to Steinstrasse. Once we did this, we then put the double J-stent in. At this point, I brought the patient in for just a cysto stent removal. We now has a new double J-stent in place. The patient tolerated the procedure well without complications by that time cystoscope was removed. Exam under anesthesia revealed no other abnormalities. The patient tolerated the procedure well without complications. ADDENDUM: Based on today's findings and the patient's past medical and surgical history and past compliance history, we are actually going to bring the patient in for an emergency admission to the hospital and then within a few days, we will try to treat her stone again. Further plans will follow. Jareth Bhatti MD
== END 2017-06-14 18:31 | DRG 988 ==
LOC: SDS 07:31 → UNDOADMOB 15:20 → 5RSO 15:20 → SDS 06-09 10:00 → 5RSO 06-12 10:46 → SDS 06-12 11:20
PROVIDERS: ADMIT Urology; ATTEND Urology
PROC: 0T778DZ Dilation of Left Ureter with Intraluminal Device, Via Natural or Artificial Opening Endoscopic (ICD-10-PCS; 2017-06-08)
PROC: BT1F1ZZ Fluoroscopy of Left Kidney, Ureter and Bladder using Low Osmolar Contrast (ICD-10-PCS; 2017-06-08)
PROC: 0TC78ZZ Extirpation of Matter from Left Ureter, Via Natural or Artificial Opening Endoscopic (ICD-10-PCS; 2017-06-08 09:00)
PROC: 30233N1 Transfusion of Nonautologous Red Blood Cells into Peripheral Vein, Percutaneous Approach (ICD-10-PCS; principal; 2017-06-10)
PROC: 0TP98DZ Removal of Intraluminal Device from Ureter, Via Natural or Artificial Opening Endoscopic (ICD-10-PCS; 2017-06-13)
PROC: 0T778DZ Dilation of Left Ureter with Intraluminal Device, Via Natural or Artificial Opening Endoscopic (ICD-10-PCS; 2017-06-13)
DX: D64.9 Anemia, unspecified (principal); N13.2 Hydronephrosis with renal and ureteral calculous obstruction; G35 Multiple sclerosis; F32.9 Major depressive disorder, single episode, unspecified; F41.9 Anxiety disorder, unspecified; I10 Essential (primary) hypertension; D86.9 Sarcoidosis, unspecified; R60.0 Localized edema; K59.03 Drug induced constipation; T40.605A Adverse effect of unspecified narcotics, initial encounter; Z18.89 Other specified retained foreign body fragments; Z91.19 Patient's noncompliance with other medical treatment and regimen; Z90.49 Acquired absence of other specified parts of digestive tract; Z88.0 Allergy status to penicillin; Z88.5 Allergy status to narcotic agent; Z88.2 Allergy status to sulfonamides; Z87.891 Personal history of nicotine dependence

== ENCOUNTER 2017-06-14 18:31 | Inpatient (IN) | payer OTHER ==
[2017-06-07 14:51] VITALS: BMI 25.6
[2017-06-14] MEDS: oxyCODONE 20 mg ER Tab (oxyCONTIN) PO SCH (23:04)
[2017-06-15] MEDS: Potassium Chloride 10 mEq ER Tab PO SCH (09:00)
[2017-06-15] MEDS ORDERED: ADDERALL 20 MG PO SCH (10:00)
[2017-06-15] MEDS: BIOTIN 10000 MCG PO SCH (10:44)
[2017-06-15] MEDS: POLYETHYLENE GLYCOL 3350 17 GM/Dose PACKET PO SCH (10:49)
[2017-06-15] MEDS: Meloxicam 7.5 MG TAB PO SCH (10:49)
[2017-06-15] MEDS: oxyCODONE 20 mg ER Tab (oxyCONTIN) PO SCH ×2 (10:50→23:17)
[2017-06-15] MEDS: VITAMIN E PO SCH (10:51)
[2017-06-15] MEDS: UBIDECARENONE PO SCH (10:51)
[2017-06-15] MEDS: [UNRECOGNIZED DRUG - OTHER] OU SCH (17:45)
[2017-06-15] MEDS: Oxycodone/Acetaminophen 5/325 mg Tab PO PRN (17:51)
--- NOTE | 2017-06-16 02:45 | HP ---
HISTORY OF PRESENT ILLNESS: The patient is a 62-year-old seen and examined, was initially admitted for the stent removal, developed hematuria. She was found to be anemic, was given 2 blood transfusions. The patient complained of bilateral leg swelling. She was taken for cystoscopy again. Yesterday, she had stent placed that she expelled yesterday evening followed by hematuria, transferred to TCU for close monitoring. PAST MEDICAL HISTORY: She has significant past medical history of: 1. Sarcoidosis. 2. History of multiple sclerosis. 3. Hypertension. 4. Chronic anemia. 5. Nephrolithiasis, status post stent placement earlier, but that was removed on last admission. ALLERGIES: SHE IS ALLERGIC TO SOLORIO PEPPER, CODEINE, PENICILLIN, AND SULFA. MEDICATIONS AT HOME: She is on B12. She is on Celexa, Adderall, prednisolone, potassium, Percocet, Mobic, gabapentin, Lasix and oxycodone. REVIEW OF SYSTEMS: Significant for generalized weakness, bilateral leg swelling, and left arm swelling. PHYSICAL EXAMINATION GENERAL: She is awake, alert, oriented, communicative. VITAL SIGNS: She is afebrile, pulse 76, respirations 16, blood pressure 121/70. LUNGS: Bilaterally fair airflow. No rhonchi or crackles. HEART: S1 and S2 audible. ABDOMEN: Soft. Nontender. No rebound, no guarding. NEUROLOGIC: The patient is awake, alert, oriented, communicative, able to ambulate but slowly. ASSESSMENT: 1. Symptomatic anemia, status post blood transfusion. 2. Status post cystoscopy and stent placement that was expelled spontaneously yesterday. 3. Anemia. 4. Multiple sclerosis. 5. Sarcoidosis. PLAN: We will continue the patient on current medication. We will follow up CBC and CMP and if needed blood transfusion will be given intermittently. I will give her Venofer infusion. Rad Onofre MD
[2017-06-16] MEDS: Potassium Chloride 10 mEq ER Tab PO SCH (08:32)
[2017-06-16] MEDS: BIOTIN 10000 MCG PO SCH (09:25)
[2017-06-16] MEDS: [UNRECOGNIZED DRUG - OTHER] OU SCH ×2 (09:26→17:57)
[2017-06-16] MEDS: ADDERALL 20 MG PO SCH (09:26)
[2017-06-16] MEDS: VITAMIN E PO SCH (09:28)
[2017-06-16] MEDS: Meloxicam 7.5 MG TAB PO SCH (09:28)
[2017-06-16] MEDS: UBIDECARENONE PO SCH (09:28)
[2017-06-16] MEDS: oxyCODONE 20 mg ER Tab (oxyCONTIN) PO SCH ×2 (09:37→22:11)
[2017-06-16] MEDS: POLYETHYLENE GLYCOL 3350 17 GM/Dose PACKET PO SCH (09:37)
[2017-06-16] MEDS: Oxycodone/Acetaminophen 5/325 mg Tab PO PRN (18:03)
--- NOTE | 2017-06-16 21:59 | PN ---
DATE: SUBJECTIVE: The patient is a 62-year-old, seen and examined, doing well. Complaint of bilateral leg swelling. Complaint of arm swelling. No chest pain. No shortness of breath. PHYSICAL EXAMINATION: VITAL SIGNS: She is afebrile, pulse 97, respirations 18, blood pressure 99/71. LUNG: Bilateral fair air flow. No rhonchi or crackle. HEART: S1 and S2 audible. ABDOMEN: Soft. Nontender. No rebound. No guarding. NEUROLOGICAL: Bilateral leg +2 edema and left hand has edema. LABORATORY DATA: There is no new lab available today, I will order for tomorrow. ASSESSMENT: 1. Bilateral leg edema. 2. Left nephrolithiasis status post stent placement and removal status post hematuria that has improved. 3. Hypoalbuminemia. 4. History of sarcoidosis. 5. History of multiple sclerosis. PLAN: I will order for CBC and CMP for the morning. Request for left arm to be wrapped in Dionisio bandage. input noted and appreciated. We will follow up the patient in a.m. Rad Onofre MD
--- NOTE | 2017-06-17 04:01 | CON ---
DATE: HISTORY OF PRESENT ILLNESS: The patient is a 62-year-old female multiple medical issues including sarcoidosis, multiple sclerosis, hypertension, chronic anemia, nephrolithiasis, the patient was admitted for the stent removal, developed hematuria. The patient was transferred to TCU. The patient has history of depression and the patient is on psychotropic medications that is why this blurb writer got involved into the patient care. The patient was seen and examined today. The patient presented to alert and oriented, pleasant, cooperative. At the same time, appears to be depressed and tearful. The patient reported that her . Right now her both sons have concerns about her safety in regards of the medical issues and both of her sons. Has impression that the patient cannot take care of herself. The patient states that she was bouncing between two of the houses and she did not get alone with her [id number]. The patient was tearful when she was talking about her problems. Thought process was over inclusive. Speech was not pressured. Overall, the patient was pleasant and cooperative. The patient said that she had suicidal attempts many years ago "I will not do that again because this is against my lutheran belief." The patient denies hearing voices, denies seeing things. The patient also denies history of being admitted to the Psychiatric Inpatient Unit. The patient reported that she was filling her medications at [facility] in [address] [place] [address], phone number is [phone], Adderall XR 20 mg daily, citalopram 20 mg daily, BuSpar 7.5 mg daily, vitamin D everything was prescribed by Dr. Wolff. The patient said that she does not have psychiatrist in the Community, but she expressed interest to see someone in the Community. This blurb writer provided emotional support and empathic listening, the patient was appreciate. MEDICATIONS: Reviewed. BuSpar 7.5 mg daily, Celexa 20 mg daily, Lasix 40 mg IV push daily, Neurontin 300 mg daily, Claritin 10 mg daily, and Mobic 7.5 mg daily. The patient also is on oxycodone, Percocet, and potassium chloride. PHYSICAL EXAMINATION: VITAL SIGNS: Reviewed. Temperature 97.9, pulse is 97, blood pressure 99/71, respirations 18, and oxygen saturation is 100. MENTAL STATUS EXAMINATION: The patient presented to be alert and oriented, pleasant and cooperative. Intermittent eye contact. Looks younger than her chronological age, thin built. Mood described, "I am upset and depressed as well as I have a lot of problems." Affect is constricted. Mood congruent. Thought process was coherent and goal directed. Thought content, the patient denied visual, auditory, or tactile hallucinations. Denied paranoid ideations. The patient denied thoughts of harming herself or others. Denied intent or plan. Insight and judgment seems to be fair. Impulses are well controlled. LABORATORY DATA: Reviewed. IMPRESSION: As per history, the patient has depression, rule out mood disorder due to general medical condition. PLAN: Continue current management. Medications were confirmed with the patient pharmacy. Please see above. Adderall is nonformulary in the hospital, this blurb writer will not recommend that medication for this patient. We will follow up and advise accordingly. The patient needs to be followed up with psychiatrist and greatly benefit from talking to the psychiatrist and therapist. The patient does not homicidal or suicidal. We will follow up and advise accordingly tomorrow Dr. Davis covers with advanced nurse practitioner, Zenaida. Thank you so much for letting me to participate in the care of your patient. Case was discussed with Dr. Onofre. Kacey Heart MD
[2017-06-17 07:06] LABS: BASO # 0.02 K/mm3 (0.0-2.0); BASO % 0.6 % (0.0-3.0); EOS # 0.1 (0.0-0.7); EOS % 1.7 % (1.5-5.0); GRAN # 1.59 (1.4-6.5); GRAN % 45.8 % (50.0-68.0); HEMATOCRIT 29.7 % (36.0-48.0); LYMPH # 1.3 (1.2-3.4); LYMPH % 36.9 % (22.0-35.0); MEAN CELL VOLUME 90.5 fl (80.0-105.0); MEAN CORPUSCULAR HEMOGLOBIN 29.6 pg (25.0-35.0); MEAN CORPUSCULAR HGB CONC 32.7 g/dl (31.0-37.0); MEAN PLATELET VOLUME 9.5 fl (7.0-11.0); MONO # 0.5 (0.1-0.6); RED CELL DISTRIBUTION WIDTH 17.1 % (11.5-14.5); WHITE BLOOD COUNT 3.5 10^3/ul (4.5-11.0)
[2017-06-17 07:39] LABS: ALB/GLOB RATIO 0.7 (1.1-1.8); ALKALINE PHOSPHATASE 57 U/L (38-126); ALT/SGPT 44 U/L (7-56); AST/SGOT 34 U/L (14-36); BILIRUBIN,TOTAL < 0.1 mg/dL (0.2-1.3); BLOOD UREA NITROGEN 27 mg/dL (7-21); CALCIUM 7.3 mg/dL (8.4-10.5); CARBON DIOXIDE 30 mmol/L (21-33); CHLORIDE 104 mmol/L (98-107); GFR AFRICAN-AMERICAN > 60; GLUCOSE,RANDOM 69 mg/dL (70-110); POTASSIUM 3.9 mmol/L (3.6-5.0); SODIUM 135 mmol/L (132-148); TOTAL PROTEIN 4.1 g/dL (5.8-8.3)
[2017-06-17] MEDS: Potassium Chloride 10 mEq ER Tab PO SCH (08:53)
[2017-06-17] MEDS: Meloxicam 7.5 MG TAB PO SCH (10:22)
[2017-06-17] MEDS: POLYETHYLENE GLYCOL 3350 17 GM/Dose PACKET PO SCH (10:22)
[2017-06-17] MEDS: [UNRECOGNIZED DRUG - OTHER] OU SCH ×2 (10:22→17:18)
[2017-06-17] MEDS: oxyCODONE 20 mg ER Tab (oxyCONTIN) PO SCH ×2 (10:27→21:35)
[2017-06-17] MEDS: ADDERALL 20 MG PO SCH (10:28)
[2017-06-17] MEDS: BIOTIN 10000 MCG PO SCH (10:29)
[2017-06-17] MEDS: VITAMIN E PO SCH (10:32)
[2017-06-17] MEDS: UBIDECARENONE PO SCH (10:32)
[2017-06-17] MEDS: Oxycodone/Acetaminophen 5/325 mg Tab PO PRN (15:24)
--- NOTE | 2017-06-17 22:08 | PN ---
DATE: SUBJECTIVE: The patient is 62-year-old, seen and examined, she states leg swelling and left arm swelling is better than before and denies any nausea or vomiting. PHYSICAL EXAMINATION VITAL SIGNS: She is afebrile, pulse 79, respirations 18, blood pressure 101/69. LUNGS: Bilateral fair airflow. No rhonchi or crackle. HEART: S1 and S2 audible. ABDOMEN: Soft. Nontender. No rebound. No guarding. NEUROLOGICAL: She is awake, alert, oriented, able to ambulate. LABORATORY DATA: WBC 3.5, hemoglobin 9.7, hematocrit 29.7, platelet of 162. Chemistries; sodium 135, potassium 3.9, chloride 104, CO2 of 30, BUN 27, creatinine 0.9, blood sugar of 69. ASSESSMENT: 1. Status post cystoscopy and stent removal. 2. Multiple sclerosis. 3. Hypoalbuminemia. 4. Anemia status post 2 blood transfusions. 5. Bilateral leg edema currently on IV diuretics. We will continue that. PLAN: To continue current medication and the patient is discharged tomorrow. Rad Onofre MD
[2017-06-18] MEDS: ADDERALL 20 MG PO SCH (05:45)
[2017-06-18] MEDS ORDERED: ADDERALL 20 MG PO SCH (06:00)
[2017-06-18] MEDS: Potassium Chloride 10 mEq ER Tab PO SCH (08:21)
[2017-06-18] MEDS: oxyCODONE 20 mg ER Tab (oxyCONTIN) PO SCH ×2 (09:57→17:32)
[2017-06-18] MEDS: BIOTIN 10000 MCG PO SCH (09:57)
[2017-06-18] MEDS: POLYETHYLENE GLYCOL 3350 17 GM/Dose PACKET PO SCH (09:59)
[2017-06-18] MEDS: [UNRECOGNIZED DRUG - OTHER] OU SCH ×2 (09:59→17:34)
[2017-06-18] MEDS: UBIDECARENONE PO SCH (10:00)
[2017-06-18] MEDS: VITAMIN E PO SCH (10:00)
[2017-06-18] MEDS: Meloxicam 7.5 MG TAB PO SCH (10:07)
--- NOTE | 2017-06-18 12:45 | CP.PCM.PCO ---
Physician Communication Note - Physician Communication Note Physician Communication Note: no acute psychiatric issues, will f/u on this pt tomorrow.
[2017-06-18] MEDS ORDERED: Oxycodone/Acetaminophen 5/325 mg Tab PO PRN (14:16)
--- NOTE | 2017-06-18 19:06 | PN ---
DATE: SUBJECTIVE: The patient is 62-year-old, seen and examined, ambulatory, doing well, still has left arm swelling. Bilateral leg swelling has improved, anxious to go home tomorrow for [place]. PHYSICAL EXAMINATION: VITAL SIGNS: She is afebrile, pulse 89, respirations 20, blood pressure 101/69. LUNGS: Bilateral fair airflow. No rhonchi or crackle. HEART: S1 and S2 audible. ABDOMEN: Soft and nontender. No rebound. No guarding. NEUROLOGICAL: She is awake, alert, oriented, communicative, ambulatory. EXTREMITIES: Bilateral leg +1 edema. ASSESSMENT: 1. Status post stent placement and removal. 2. Nephrolithiasis, status post lithotripsy. 3. Hypertension. 4. Hypoalbuminemia. 5. Anemia. 6. Multiple sclerosis. 7. Sarcoidosis. PLAN: The patient is currently receiving IV Lasix, and other than that, we will continue her on current medications. She has a plan to be discharged tomorrow. Rad Onofre MD
[2017-06-19] MEDS: ADDERALL 20 MG PO SCH (05:32)
[2017-06-19] MEDS: oxyCODONE 20 mg ER Tab (oxyCONTIN) PO SCH ×2 (06:49→17:36)
[2017-06-19] MEDS: Potassium Chloride 10 mEq ER Tab PO SCH (08:26)
[2017-06-19] MEDS: BIOTIN 10000 MCG PO SCH (09:16)
[2017-06-19] MEDS: UBIDECARENONE PO SCH (09:24)
[2017-06-19] MEDS: VITAMIN E PO SCH (09:24)
[2017-06-19] MEDS: POLYETHYLENE GLYCOL 3350 17 GM/Dose PACKET PO SCH (09:51)
[2017-06-19] MEDS: Meloxicam 7.5 MG TAB PO SCH (09:51)
[2017-06-19] MEDS: [UNRECOGNIZED DRUG - OTHER] OU SCH ×2 (09:51→17:33)
--- NOTE | 2017-06-19 18:07 | PN ---
DATE: SUBJECTIVE: The patient was followed up today. The patient presented in good mood. The patient said that she feels little bit better. The patient observed eating seems to have improved appetite. The patient said that she wants to be followed up with outpatient psychiatrist here in the community. The patient was provided with a contact information of Dr. Girish Eisenberg, phone number as well as address was provided to the patient. The patient was appreciative. OBJECTIVE: VITAL SIGNS: Stable. MEDICATIONS: Reviewed. LABORATORY DATA: Reviewed. MENTAL STATUS EXAM: The patient presented to be alert and oriented, pleasant, cooperative. Mood described "I feel a little bit better." Affect seems to be more reactive, but still constricted. Thought process seems to be coherent and goal directed. Thought content, the patient denied visual, auditory, or tactile hallucinations. Denied paranoid ideation. The patient denied thoughts of harming herself or others. Denied intent or plan. Insight and judgment seems to be fair. Impulses are well controlled. IMPRESSION: As per history, patient has depression, rule out mood disorder due to general medical condition. PLAN: Continue current management. Continue current medications. The patient was provided with information for outpatient programs in the community. The patient denied thoughts of harming herself or others seemed not to be in any danger to self or others. This insurance underwriter sales will sign off. The patient was advised to continue all of her medications and take it as prescribed. The patient verbalized understanding. Thank you so much for letting me participate in care of your patient. Kacey Heart MD
--- NOTE | 2017-06-19 20:10 | PN ---
DATE: 06/19/2017 SUBJECTIVE: The patient is a 62-year-old, seen and examined, lying in bed, seems to be comfortable, still has generalized weakness, and still has bilateral leg swelling. PHYSICAL EXAMINATION VITAL SIGNS: She is afebrile, pulse 83, respirations 16, blood pressure 110/76. LUNGS: Bilateral fair airflow. No rhonchi or crackles. HEART: S1 and S2 audible. ABDOMEN: Soft. EXTREMITIES: Her left upper arm has slight +1 edema. Bilateral legs, 1+ edema. LABORATORY EXAMINATION: Will be ordered for tomorrow morning. ASSESSMENT: 1. Status post hematuria, status post nephrolithiasis and had ureteral stent placed that she expelled. 2. Sarcoidosis. 3. Multiple sclerosis. 4. Chronic anemia. PLAN: We will continue the patient on current medication. We will intermittently follow CBC and . Rad Onofre MD MTDD
[2017-06-20] MEDS: ADDERALL 20 MG PO SCH (05:50)
[2017-06-20] MEDS: oxyCODONE 20 mg ER Tab (oxyCONTIN) PO SCH ×2 (06:40→17:32)
[2017-06-20] MEDS: Potassium Chloride 10 mEq ER Tab PO SCH (08:17)
[2017-06-20] MEDS: BIOTIN 10000 MCG PO SCH (09:21)
[2017-06-20] MEDS: UBIDECARENONE PO SCH (09:22)
[2017-06-20] MEDS: VITAMIN E PO SCH (09:22)
[2017-06-20] MEDS: [UNRECOGNIZED DRUG - OTHER] OU SCH ×2 (09:54→17:31)
[2017-06-20] MEDS: Meloxicam 7.5 MG TAB PO SCH (09:54)
[2017-06-20] MEDS: POLYETHYLENE GLYCOL 3350 17 GM/Dose PACKET PO SCH (09:54)
[2017-06-20] MEDS: Clotrimazole/Betamethasone Cream(15 gm) TOP SCH (17:31)
[2017-06-20] MEDS: Nystatin-Triamcinolone Cream(30 gm) TOP SCH (17:32)
--- NOTE | 2017-06-20 20:33 | PN ---
DATE: SUBJECTIVE: The patient is a 62-year-old, seen and examined, doing well, ambulatory. Left arm swelling is better. Bilateral leg swelling is better. Eating and tolerating. She is very happy. She went on fast yesterday and visited her son. PHYSICAL EXAMINATION VITAL SIGNS: She is afebrile, pulse 77, respirations 16, blood pressure 95/67. LUNGS: Bilateral fair airflow. No rhonchi or crackles. HEART: S1 and S2 audible. ABDOMEN: Soft and nontender. No rebound. No guarding. NEUROLOGIC: The patient is awake, alert, oriented, and communicative. ASSESSMENT: 1. Status post lithotripsy and nephrolithiasis. The patient has left ureteral stent placement that was expelled later on the same day, status post hematuria. 2. Anemia, status post blood transfusion. 3. Multiple sclerosis. 4. Sarcoidosis. PLAN: We will continue the patient on current medication. We will follow up her CBC and CMP intermittently and we will follow up the patient in a.m. Rad Onofre MD
[2017-06-21] MEDS: ADDERALL 20 MG PO SCH (05:42)
[2017-06-21] MEDS: Potassium Chloride 10 mEq ER Tab PO SCH (09:00)
[2017-06-21] MEDS: oxyCODONE 20 mg ER Tab (oxyCONTIN) PO SCH ×2 (09:21→17:52)
--- NOTE | 2017-06-21 09:30 | PN ---
DATE: 06/17/2017 She is being seen today in a followup consultation. PRESENTATION: Patient is a 62-year-old female seen at bedside in consultation per unit policy since she is on psychiatric medication. Medically, she has a history of sarcoidosis, multiple sclerosis, hypertension, chronic anemia and nephrolithiasis. Patient today indicates that she is exhausted that she has done a lot of moving around yesterday, been out of bed most of the day, walking around and that her son visited last night. She indicates that her mood is good. She feels that she is doing well and denies any current psychiatric difficulties. She is sleeping well, she is eating well, and is liking being active. PHYSICAL EXAMINATION: VITAL SIGNS: Her most recent vital signs are temperature of 98, pulse rate of 62, blood pressure is 107/71. PLAN: We will continue to follow patient. She was very talkative and indicated she had some symptoms of depression yesterday. Today, she indicates that she just does not feel much like talking, but would like to be followed up. She continues on her current medications, which are BuSpar 7.5 mg daily, citalopram 20 mg one daily, she is on Lasix via the IV 40 mg daily, gabapentin 300 mg at bedtime, meloxicam 7.5 mg daily, loratadine 10 mg one daily. We will continue to follow. Zenaida Weems APN
[2017-06-21] MEDS: BIOTIN 10000 MCG PO SCH (10:44)
[2017-06-21] MEDS: [UNRECOGNIZED DRUG - OTHER] OU SCH ×2 (10:47→17:30)
[2017-06-21] MEDS: POLYETHYLENE GLYCOL 3350 17 GM/Dose PACKET PO SCH (10:48)
[2017-06-21] MEDS: Clotrimazole/Betamethasone Cream(15 gm) TOP SCH ×2 (10:48→17:30)
[2017-06-21] MEDS: Nystatin-Triamcinolone Cream(30 gm) TOP SCH ×2 (10:49→17:32)
[2017-06-21] MEDS: Meloxicam 7.5 MG TAB PO SCH (10:49)
[2017-06-21] MEDS: VITAMIN E PO SCH (10:50)
[2017-06-21] MEDS: UBIDECARENONE PO SCH (10:50)
--- NOTE | 2017-06-21 22:54 | PN ---
SUBJECTIVE: The patient is 62 years old, seen and examined, ambulating, her vaginal itching has significantly improved, bilateral leg and the left arm swelling has improved. OBJECTIVE: VITAL SIGNS: She is afebrile, pulse 67, respirations 18, blood pressure 110/70. LUNGS: Bilateral fair airflow. No rhonchi or crackles. HEART: S1 and S2 audible. ABDOMEN: Soft, nontender. No rebound. No guarding. NEUROLOGIC: The patient is awake, alert, oriented, communicative, ambulatory ASSESSMENT AND PLAN: 1. Nephrolithiasis, status post lithotripsy. 2. Status post stent removal. 3. Status post hematuria. 4. Symptomatic anemia, status post blood transfusion. 5. Multiple sclerosis. 6. Sarcoidosis. PLAN: The patient is clinically stable, ambulating, hemoglobin seems to be stable, back to her baseline, the patient remains stable, she will be Rad Onofre MD
[2017-06-21] MEDS ORDERED: Oxycodone/Acetaminophen 5/325 mg Tab PO STA (23:28)
[2017-06-22] MEDS: ADDERALL 20 MG PO SCH (06:07)
[2017-06-22] MEDS ORDERED: Apap-Butalbital-Caffeine 325-50-40mg Tab PO PRN ×2 (06:30→06:50)
[2017-06-22] MEDS: Potassium Chloride 10 mEq ER Tab PO SCH (08:30)
[2017-06-22] MEDS: oxyCODONE 20 mg ER Tab (oxyCONTIN) PO SCH ×2 (08:30→18:02)
[2017-06-22] MEDS: BIOTIN 10000 MCG PO SCH (10:57)
[2017-06-22] MEDS: Clotrimazole/Betamethasone Cream(15 gm) TOP SCH ×2 (10:59→18:03)
[2017-06-22] MEDS: [UNRECOGNIZED DRUG - OTHER] OU SCH ×2 (10:59→18:03)
[2017-06-22] MEDS: Meloxicam 7.5 MG TAB PO SCH (11:00)
[2017-06-22] MEDS: Nystatin-Triamcinolone Cream(30 gm) TOP SCH ×2 (11:00→18:03)
[2017-06-22] MEDS: VITAMIN E PO SCH (11:01)
[2017-06-22] MEDS: POLYETHYLENE GLYCOL 3350 17 GM/Dose PACKET PO SCH (11:01)
[2017-06-22] MEDS: UBIDECARENONE PO SCH (11:01)
[2017-06-22 17:14] VITALS: PULSE 87; RESP 16; TEMP 98; O2SAT 99
--- NOTE | 2017-06-22 23:07 | PN ---
DATE: SUBJECTIVE: The patient is 62-year-old, seen and examined, complaining of left arm swelling, complaining of generalized weakness. She states she is not up to be going home. PHYSICAL EXAMINATION: VITAL SIGNS: She is afebrile, pulse 87, respirations 16, blood pressure 104/68. LUNGS: Bilateral fair airflow. No rhonchi or crackle. HEART: S1 and S2 audible. ABDOMEN: Soft and nontender. No rebound. No guarding. NEUROLOGIC: She is awake, alert, oriented, communicative, ambulatory. EXTREMITIES: Bilateral leg +1 edema. ASSESSMENT: 1. Status post hematuria and left nephrolithiasis, status post lithotripsy. 2. Status post left ureteral stent placement. 3. Bilateral leg edema, improved. 4. Multiple sclerosis. 5. Sarcoidosis. 6. Hypoalbuminemia. 7. Anemia. PLAN: We will continue the patient on current medication. Discharge plan for [email or web address]. Rad Onofre MD
[2017-06-23] MEDS: ADDERALL 20 MG PO SCH (05:45)
[2017-06-23 05:50] VITALS: BP 100/62
[2017-06-23] MEDS: Potassium Chloride 10 mEq ER Tab PO SCH (08:38)
[2017-06-23] MEDS: Clotrimazole/Betamethasone Cream(15 gm) TOP SCH (11:00)
[2017-06-23] MEDS: [UNRECOGNIZED DRUG - OTHER] OU SCH (11:00)
[2017-06-23] MEDS: Nystatin-Triamcinolone Cream(30 gm) TOP SCH (11:00)
[2017-06-23] MEDS: Meloxicam 7.5 MG TAB PO SCH (11:00)
[2017-06-23] MEDS: POLYETHYLENE GLYCOL 3350 17 GM/Dose PACKET PO SCH (11:00)
[2017-06-23] MEDS: BIOTIN 10000 MCG PO SCH (11:26)
[2017-06-23] MEDS: VITAMIN E PO SCH (11:32)
[2017-06-23] MEDS: UBIDECARENONE PO SCH (11:32)
--- NOTE | 2017-06-23 20:43 | DS ---
HISTORY OF PRESENT ILLNESS: The patient is a 62-year-old female who came in because of left flank pain. She has hematuria. She had stent removed and replaced and that was expelled spontaneously and she voided couple of stones after that and felt comfortable, hematuria cleared up, she was having bilateral leg swelling and deconditioned, so she was transferred to TCU for rehab, did well, has been getting IV diuretics with significant improvement. PHYSICAL EXAMINATION: GENERAL: Today. she is awake, alert, oriented, communicative. VITAL SIGNS: She is afebrile, pulse 87, respirations 16, blood pressure 104/68. LUNGS: Bilateral good airflow. No rhonchi or crackles. HEART: S1 and S2 audible. ABDOMEN: Soft, nontender. No rebound. No guarding. NEUROLOGIC: Patient is awake, alert, oriented, communicative, ambulatory. ASSESSMENT: 1. Status post hematuria. 2. Status post stent removal, after she voided multiple renal stones her hematuria cleared up. 3. Hypoalbuminemia. 4. Anemia, status post blood transfusion. 5. Deconditioning and difficulty walking. 6. Multiple sclerosis. 7. Sarcoidosis. PLAN: Patient is being discharged home. She will resume her medications. We will follow with her. Rad Onofre MD
== END 2017-06-23 16:11 | disposition home or self-care (01) | DRG 694 ==
LOC: TRCU 18:31
PROVIDERS: ADMIT Urology; ATTEND Internal Medicine
PROC: F07Z9FZ Gait Training/Functional Ambulation Treatment using Assistive, Adaptive, Supportive or Protective Equipment (ICD-10-PCS; principal; 2017-06-15)
PROC: F07M6ZZ Therapeutic Exercise Treatment of Musculoskeletal System - Whole Body (ICD-10-PCS; 2017-06-15)
PROC: F08Z1ZZ Dressing Techniques Treatment (ICD-10-PCS; 2017-06-15)
PROC: F08Z2ZZ Grooming/Personal Hygiene Treatment (ICD-10-PCS; 2017-06-15)
PROC: F08Z0ZZ Bathing/Showering Techniques Treatment (ICD-10-PCS; 2017-06-15)
PROC: F08Z4ZZ Home Management Treatment (ICD-10-PCS; 2017-06-15)
DX: N20.0 Calculus of kidney (principal); E88.09 Other disorders of plasma-protein metabolism, not elsewhere classified; G35 Multiple sclerosis; D86.9 Sarcoidosis, unspecified; D64.9 Anemia, unspecified; I10 Essential (primary) hypertension; Z79.899 Other long term (current) drug therapy; Z87.442 Personal history of urinary calculi; R31.9 Hematuria, unspecified; R26.2 Difficulty in walking, not elsewhere classified

== ENCOUNTER 2017-07-22 00:33 | Inpatient (IN) | payer MEDICARE, OTHER ==
[2017-07-22 00:45] VITALS: BMI 20.2
[2017-07-22 01:27] LABS: GRAN # 3.33 (1.4-6.5); HEMOGLOBIN 9.3 g/dL (12.0-16.0); LYMPH # 0.6 (1.2-3.4); LYMPH % 14.3 % (22.0-35.0); MEAN CORPUSCULAR HGB CONC 33.3 g/dl (31.0-37.0); MEAN PLATELET VOLUME 9.1 fl (7.0-11.0); MONO # 0.3 (0.1-0.6); MONO % 6.7 % (1.0-6.0); RED CELL DISTRIBUTION WIDTH 16.9 % (11.5-14.5); WHITE BLOOD COUNT 4.2 10^3/ul (4.5-11.0)
[2017-07-22 01:55] LABS: ALB/GLOB RATIO 0.7 (1.1-1.8); B-TYPE NATRIURETIC PEPTIDE 122 pg/mL (0-450); BLOOD UREA NITROGEN 22 mg/dL (7-21); GFR AFRICAN-AMERICAN > 60; GFR NON-AFRICAN AMERICAN > 60
[2017-07-22 02:01] LABS: TROPONIN I < 0.01 ng/mL
[2017-07-22 02:23] LABS: ALBUMIN 1.9 g/dL (3.0-4.8); ALT/SGPT 60 U/L (7-56); AST/SGOT 46 U/L (14-36); CALCIUM 7.7 mg/dL (8.4-10.5)
[2017-07-22] MEDS: Sodium Chloride 0.9% 1,000 ML IV SCH ×2 (02:30→17:58)
--- NOTE | 2017-07-22 03:39 | ED PDOC ---
Arrival/HPI - General Chief Complaint: Shortness Of Breath Time Seen by Provider: 07/22/17 00:40 Historian: Patient - History of Present Illness Narrative History of Present Illness (Text): 07/22/17 01:00 62 year old female, with past medical history of anemia, hypertension, multiple sclerosis, sarcoidosis, pancreatitis, and left ureteral stent, presents to Emergency department complaining of generalized weakness, decreased PO intake and weeping lower extremity edema for several days. Patient informs visiting her PMD for the mentioned symptoms, who recommended her to the Emergency department for evaluation. Patient denies any chest pain, shortness of breath, fever, chills, nausea, vomiting, abdominal pain, diarrhea, hematuria, hematochezia or any other complaints. PMD: Dr. Onofre Time/Duration: 1 week Symptom Onset: Gradual Symptom Course: Unchanged Activities at Onset: Light Past Medical History - Provider Review Nursing Documentation Reviewed: Yes - Infectious Disease Hx of Infectious Diseases: None - Cardiac Hx Cardiac Disorders: Yes Hx Hypertension: Yes - Pulmonary Hx Respiratory Disorders: Yes (SMOKED CIGARETTES QUIT 40 YRS. 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 - Renal Hx Renal Disorder: Yes (L KIDNEY CYST,H/O LITHOTRYPSIES) Hx Kidney Stones: Yes - Endocrine/Metabolic Hx Endocrine Disorders: No Hx Hyperthyroidism: Yes - Hematological/Oncological Hx Blood Disorders: Yes Hx Blood Transfusions: Yes Hx Blood Transfusion Reaction: No - Integumentary Hx Dermatological Disorder: Yes Other/Comment: 06-09-17 BILATERAL LE GROSS EDEMA,PITTING +4.THICK TO HIN FLAKY SKIN. HAS ANASARCA. EDEMA TO LEFT ARM WITH SOME BRUISED AREA. - Musculoskeletal/Rheumatological Hx Falls: No - Gastrointestinal Hx Gastrointestinal Disorders: No - Genitourinary/Gynecological Hx Genitourinary Disorders: Yes Hx Reproductive Disorders: No - Psychiatric Hx Emotional Abuse: No Hx Physical Abuse: No Hx Substance Use: No - Surgical History Hx Appendectomy: Yes Hx Cholecystectomy: Yes - Anesthesia Hx Anesthesia Reactions: No Hx Malignant Hyperthermia: No - Suicidal Assessment Feels Threatened In Home Enviroment: No Family/Social History - Physician Review Nursing Documentation Reviewed: Yes Family/Social History: No Known Family HX Smoking Status: Former Smoker Hx Alcohol Use: No Hx Substance Use: No Allergies/Home Meds Allergies/Adverse Reactions: Allergies black pepper Allergy (Verified 07/22/17 04:45) ITCHING codeine Allergy (Verified 07/22/17 04:45) NAUSEA Patient states that it was due to tylenol with codeine. Patient takes codeine and percocets at home. Penicillins Allergy (Verified 07/22/17 04:45) SWELLING Sulfa (Sulfonamide Antibiotics) Allergy (Verified 07/22/17 04:45) RASH Home Medications: Home Meds Medication Instructions Recorded Confirmed Biotin 10,000 mcg PO DAILY 07/22/17 07/22/17 Cholecalciferol (Vitamin D3) 5,000 unit PO QWK 07/22/17 07/22/17 [Vitamin D3] Citalopram Hydrobromide [Celexa] 20 mg PO DAILY 07/22/17 07/22/17 Dextroamphetamine/Amphetamine 20 mg PO DAILY 07/22/17 07/22/17 [Adderall 20 mg Tablet] Gabapentin [Neurontin] 1 - 2 tab PO HS 07/22/17 07/22/17 Lactobacillus Acidophilus [Bacid 2 cap PO DAILY 07/22/17 07/22/17 Acidophilus] Loratadine [Claritin] 10 mg PO DAILY PRN 07/22/17 07/22/17 Meloxicam [Mobic] 7.5 mg PO DAILY 07/22/17 07/22/17 Oxycodone HCl/Acetaminophen 1 each PO Q6 PRN 07/22/17 07/22/17 [Percocet 10-325 mg Tablet] Polyethylene Glycol 3350 [Miralax] 17 gm PO QWK 07/22/17 07/22/17 Potassium Chloride [Klor-Con 10 meq PO DAILY 07/22/17 07/22/17 Sprinkle] Torsemide [Demadex] 20 mg PO DAILY PRN 07/22/17 07/22/17 busPIRone [Buspar] 5 mg PO BID 07/22/17 07/22/17 oxyCODONE [oxyCONTIN Extended 1 - 2 tab PO Q12 PRN 07/22/17 07/22/17 Release Tab] Review of Systems - Physician Review All systems were reviewed & negative as marked: Yes - Review of Systems Constitutional: Normal. absent: Fevers Eyes: Normal ENT: Normal Respiratory: Normal. absent: SOB Cardiovascular: Edema (weeping lower extremity edema ). absent: Chest Pain Gastrointestinal: Appetite Changes. absent: Abdominal Pain, Diarrhea, Nausea, Vomiting, Hematochezia Genitourinary Female: Normal. absent: Hematuria Musculoskeletal: Other (generalized weakness ) Skin: Normal Neurological: Normal Endocrine: Normal Hemo/Lymphatic: Normal Psychiatric: Normal Physical Exam Vital Signs Reviewed: Yes Vital Signs Temp Pulse Resp BP Pulse Ox 07/22/17 03:49 97.5 F L 71 20 127/60 99 07/22/17 02:49 68 19 106/65 99 07/22/17 00:45 18 100 07/22/17 00:40 97.7 F 70 18 122/64 100 Temperature: Afebrile Blood Pressure: Normal Pulse: Regular Respiratory Rate: Normal Appearance: Positive for: Non-Toxic, Comfortable, Other (Very thin weighing 90lbs ) Pain Distress: None Mental Status: Positive for: Alert and Oriented X 3 - Systems Exam Head: Present: Atraumatic, Normocephalic Pupils: Present: PERRL Extroacular Muscles: Present: EOMI Conjunctiva: Present: Normal Mouth: Present: Dry Neck: Present: Normal Range of Motion Respiratory/Chest: Present: Clear to Auscultation, Good Air Exchange. No: Respiratory Distress, Accessory Muscle Use Cardiovascular: Present: Regular Rate and Rhythm, Normal S1, S2. No: Murmurs Abdomen: Present: Normal Bowel Sounds. No: Tenderness, Distention, Peritoneal Signs Back: Present: Normal Inspection. No: CVA Tenderness, Midline Tenderness Upper Extremity: Present: Normal Inspection. No: Cyanosis, Edema Lower Extremity: Present: Edema (Bilateral edema. ) Neurological: Present: GCS=15, CN II-XII Intact, Speech Normal Skin: Present: Dry, Normal Color, Cold (Cool to touch. Skin breakdown at plantar aspect of both feet. ). No: Rashes Psychiatric: Present: Alert, Oriented x 3, Normal Insight, Normal Concentration Medical Decision Making ED Course and Treatment: 07/22/17 01:00 Impression: 62 year old female presents to the Emergency department for generalized weakness, lower extremity edema and decreased PO intake. Plan: -- EKG -- Labs -- Chest X-ray -- IV Fluids -- Reassess and disposition Progress Notes: EKG: Ordered, reviewed, and independently interpreted the EKG. Rate : 65 BPM Rhythm : NSR Interpretation : No ST-segment elevations or depressions, no T-wave inversions, normal intervals. 07/22/17 01:32 Discussed case with PMD Dr. Onofre, who is aware and agrees with plan. Accepts patient under her service for further observation. - Lab Interpretations Lab Results: 07/22/17 01:15 07/22/17 01:15 Lab Results 07/22/17 01:15: Sodium 130 L, Potassium 4.1, Chloride 103, Carbon Dioxide 26, Anion Gap 4 L, BUN 22 H, Creatinine 0.8, Est GFR ( Amer) > 60, Est GFR ( Non-Af Amer) > 60, Random Glucose 83, Calcium 7.7 L, Total Bilirubin 0.2, AST 46 H D, ALT 60 H, Alkaline Phosphatase 84, Lactate Dehydrogenase 860 H, Total Creatine Kinase 110, Troponin I < 0.01, NT-Pro-B Natriuret Pep 122, Total Protein 4.8 L, Albumin 1.9 L, Globulin 2.9, Albumin/Globulin Ratio 0.7 L 07/22/17 01:15: WBC 4.2 L, RBC 3.00 L, Hgb 9.3 L, Hct 27.9 L, MCV 93.0, MCH 31.0 , MCHC 33.3, RDW 16.9 H, Plt Count 290, MPV 9.1, Gran % 79.0 H, Lymph % (Auto) 14.3 L, [place] % (Auto) 6.7 H, Eos % (Auto) 0.0 L, Baso % (Auto) 0.0, Gran # 3.33 , Lymph # 0.6 L, [place] # 0.3, Eos # 0.0, Baso # 0.00 - RAD Interpretation Radiology Orders: 07/22/17 01:00 CHEST PORTABLE [RAD] Stat - Medication Orders Current Medication Orders: Sodium Chloride (Sodium Chloride 0.9%) 1,000 mls @ 100 mls/hr IV .Q10H JENNY Last Admin: 07/22/17 02:30 Dose: 100 mls/hr eMAR Start Stop Document 07/22/17 02:30 CNR (Rec: 07/22/17 02:30 CNR [id number]) Intravenous Solution Start Date 07/22/17 Start Time 02:30 Discontinued Medications Morphine Sulfate (Morphine) 2 mg IVP STAT STA Stop: 07/22/17 04:40 Last Admin: 07/22/17 04:55 Dose: 2 mg MAR Pain Assessment Document 07/22/17 04:55 MV (Rec: 07/22/17 04:56 MV [place] [id number]) Pain Reassessment Is this a pain reassessment? No Sleep Is patient sleeping during reassessment? No Presence of Pain Presence of Pain Yes Pain Scale Used Pain Scale Used Numeric Location Left, Right or Bilateral Bilateral Upper or Lower Lower Pain Location Body Site Leg Description Description Constant Intensity of Pain at present 10 Pain Behavior Moaning Crying Irritability Restlessness Facial Grimacing Aggravating Factors Changing Position Alleviating Factors/Management Medication Techniques Alleviating Factors Medication IVP Administration Document 07/22/17 04:55 MV (Rec: 07/22/17 04:56 [place] [id number]) Charges for Administration # of IVP Administrations 1 - Scribe Statement The provider has reviewed the documentation as recorded by the Scribe Orlin King. All medical record entries made by the Scribe were at my direction and personally dictated by me. I have reviewed the chart and agree that the record accurately reflects my personal performance of the history, physical exam, medical decision making, and the department course for this patient. I have also personally directed, reviewed, and agree with the discharge instructions and disposition. Disposition/Present on Arrival - Present on Arrival Any Indicators Present on Arrival: No History of DVT/PE: No History of Uncontrolled Diabetes: No Urinary Catheter: No History of Decub. Ulcer: No History Surgical Site Infection Following: None - Disposition Have Diagnosis and Disposition been Completed?: Yes Diagnosis: Weakness, Dehydration Disposition: HOSPITALIZED Disposition Time: 02:20 Condition: FAIR
[2017-07-22] MEDS ORDERED: Morphine 2 mg/ml ISec IVP STA (04:39)
--- NOTE | 2017-07-22 08:29 | RAD ---
HISTORY: SOB COMPARISON: 04/17/2017. FINDINGS: LUNGS: The lungs are well inflated and clear. PLEURA: No significant pleural effusion identified, no pneumothorax apparent. CARDIOVASCULAR: Normal. OSSEOUS STRUCTURES: No significant abnormalities. VISUALIZED UPPER ABDOMEN: Normal. OTHER FINDINGS: There are multiple surgical clips in the epigastrium. IMPRESSION: No active pulmonary disease.
[2017-07-22] MEDS ORDERED: POLYETHYLENE GLYCOL 3350 17 GM/Dose PACKET PO SCH (10:00)
[2017-07-22] MEDS: AMPHETAMINE PO SCH (10:29)
[2017-07-22] MEDS: DEXTROAMPHETAMINE PO SCH (10:29)
[2017-07-22] MEDS: Lactobacillus Acidophilus 500 MU Cap PO SCH (10:29)
[2017-07-22] MEDS: BIOTIN 10000 MCG PO SCH (12:33)
[2017-07-22] MEDS: Potassium Chloride 10 mEq ER Tab PO SCH (13:02)
[2017-07-22] MEDS: Morphine 30 mg SR Tab PO SCH ×2 (13:04→21:35)
--- NOTE | 2017-07-22 14:42 | HP ---
HISTORY OF PRESENT ILLNESS: The patient is 62-year-old known to me from multiple previous admissions, recently saw PCP because of her increasing leg swelling and erythema of both feet, she was referred to Emergency Room 2 days ago, but she came last night because of increasing swelling, difficulty walking. Denies any fever or chills. No history of nausea or vomiting. Does complain of feeling tired, fatigued and increasing bilateral foot discomfort. PAST MEDICAL HISTORY: She has significant past medical history for: 1. Multiple sclerosis. 2. Sarcoidosis. 3. Chronic anemia. 4. Hypertension. 5. History of nephrolithiasis. Her left ureteral stent placed yesterday. The patient states her legs have been swollen and her bed has been soaked with the fluid oozing out of her skin and both legs. ALLERGIES: SHE IS ALLERGIC TO BLACK PEPPER, CODEINE, PENICILLIN, SULFA. MEDICATIONS AT HOME: She is on Claritin 10 mg daily, Mobic 7.5 daily, Neurontin 2 tablet at bedtime, BuSpar 5 mg b.i.d., MiraLax, oxycodone, Bacid, biotin, potassium, Demadex 20 mg daily, Adderall, and Celexa. SOCIAL HISTORY: She lives with her son, used to be heavy smoker before, but quit couple of years ago. REVIEW OF SYSTEMS: Significant for bilateral leg swelling, left upper extremity swelling. PHYSICAL EXAMINATION: GENERAL: She is awake, alert, able to communicate, looks pale, not in any acute distress. VITAL SIGNS: She is afebrile, pulse 77, respirations 18, blood pressure 101/69. LUNGS: Bilateral fair airflow. No rhonchi or crackle. HEART: S1 and S2 audible. ABDOMEN: Soft, nontender. No rebound. No guarding. NEUROLOGIC: The patient is awake, alert, oriented, communicative. LABORATORY DATA: WBC is 4.2, hemoglobin 9.3, hematocrit 27.9, platelet of 290. Chemistry; sodium 130, potassium 4.1, chloride 103, CO2 26, BUN 22, creatinine 0.8, blood sugar of 83. LFTs shows AST 46, ALT 60. LDH is 860. X-ray chest shows no active disease. ASSESSMENT: 1. Bilateral leg edema with cellulitis. 2. Hypoproteinemia. 3. Anemia. 4. History of multiple sclerosis. 5. History of sarcoidosis. PLAN: We will start diuresis. Podiatry consult by Dr. Puckett will be requested. Analgesic as needed. We will monitor her H and H and electrolytes in a.m. Rad Onofre MD
--- NOTE | 2017-07-23 04:49 | CP.PCM.PN ---
Subjective - Date & Time of Evaluation Date of Evaluation: 07/23/17 Time of Evaluation: 04:48 - Subjective Subjective: Patient was seen at bedside. She complains of pain all over body. Received morphine in ER. Not due until 10AM in the morning. Has no other complaints now. Medical record was reviewed. This 62 year old white woman was admitted with erythema of both feet and increasing leg swelling. Has PMH of sarcoidosis, multiple sclerosis, HTN, anemia, nephrolithiasis, ureteral stent placement. Objective - Vital Signs/Intake and Output Vital Signs (last 24 hours): Temp Pulse Resp BP Pulse Ox 97.7 F 71 19 96/63 L 97 07/22/17 06:00 07/22/17 16:00 07/22/17 16:00 07/22/17 16:00 07/22/17 16:00 Intake and Output: 07/22/17 07/23/17 18:59 06:59 Intake Total 800 Output Total 450 Balance 800 -450 - Medications Medications: Current Medications Buspirone HCl (Buspar) 5 mg PO BID [facility] PRN Reason: Protocol Last Admin: 07/22/17 17:58 Dose: 5 mg Citalopram Hydrobromide (Celexa) 20 mg PO DAILY [facility] Last Admin: 07/22/17 10:31 Dose: 20 mg Furosemide (Lasix) 40 mg IVP DAILY [facility] Last Admin: 07/22/17 13:03 Dose: 40 mg Lactobacillus Acidophilus (Bacid Acidophilus) 2 cap PO DAILY [facility] Last Admin: 07/22/17 10:29 Dose: 2 cap Morphine Sulfate (Morphine Extended Release Tab) 30 mg PO Q12 [facility] Last Admin: 07/22/17 21:35 Dose: 30 mg Non-Formulary Medication (Dextroamphetamine/Amphetamine [Adderall 20 Mg Tablet] ) 20 mg PO DAILY [facility] Last Admin: 07/22/17 10:29 Dose: Not Given Non-Formulary Medication (Biotin [Biotin]) 10,000 mcg PO DAILY [facility] Last Admin: 07/22/17 12:33 Dose: Not Given Polyethylene Glycol (Miralax) 17 gm PO QWK [facility] Last Admin: 07/22/17 10:31 Dose: 17 gm Potassium Chloride (Klor-Con 10) 10 meq PO DAILY [facility] Last Admin: 07/22/17 13:02 Dose: 10 meq - Labs Labs: Most Recent Lab Values WBC 4.2 10^3/ul (4.5-11.0) L 07/22/17 01:15 RBC 3.00 10^6/uL (3.5-6.1) L 07/22/17 01:15 Hgb 9.3 g/dL (12.0-16.0) L 07/22/17 01:15 Hct 27.9 % (36.0-48.0) L 07/22/17 01:15 MCV 93.0 fl (80.0-105.0) 07/22/17 01:15 MCH 31.0 pg (25.0-35.0) 07/22/17 01:15 MCHC 33.3 g/dl (31.0-37.0) 07/22/17 01:15 RDW 16.9 % (11.5-14.5) H 07/22/17 01:15 Plt Count 290 10^3/uL (120.0-450.0) 07/22/17 01:15 MPV 9.1 fl (7.0-11.0) 07/22/17 01:15 Gran % 79.0 % (50.0-68.0) H 07/22/17 01:15 Lymph % (Auto) 14.3 % (22.0-35.0) L 07/22/17 01:15 [place] % (Auto) 6.7 % (1.0-6.0) H 07/22/17 01:15 Eos % (Auto) 0.0 % (1.5-5.0) L 07/22/17 01:15 Baso % (Auto) 0.0 % (0.0-3.0) 07/22/17 01:15 Gran # 3.33 (1.4-6.5) 07/22/17 01:15 Lymph # 0.6 (1.2-3.4) L 07/22/17 01:15 [place] # 0.3 (0.1-0.6) 07/22/17 01:15 Eos # 0.0 (0.0-0.7) 07/22/17 01:15 Baso # 0.00 K/mm3 (0.0-2.0) 07/22/17 01:15 Sodium 130 mmol/L (132-148) L 07/22/17 01:15 Potassium 4.1 mmol/L (3.6-5.0) 07/22/17 01:15 Chloride 103 mmol/L (98-107) 07/22/17 01:15 Carbon Dioxide 26 mmol/L (21-33) 07/22/17 01:15 Anion Gap 4 (10-20) L 07/22/17 01:15 BUN 22 mg/dL (7-21) H 07/22/17 01:15 Creatinine 0.8 mg/dl (0.7-1.2) 07/22/17 01:15 Est GFR ( Amer) > 60 07/22/17 01:15 Est GFR (Non-Af Amer) > 60 07/22/17 01:15 Random Glucose 83 mg/dL (70-110) 07/22/17 01:15 Calcium 7.7 mg/dL (8.4-10.5) L 07/22/17 01:15 Total Bilirubin 0.2 mg/dL (0.2-1.3) 07/22/17 01:15 AST 46 U/L (14-36) H D 07/22/17 01:15 ALT 60 U/L (7-56) H 07/22/17 01:15 Alkaline Phosphatase 84 U/L (38-126) 07/22/17 01:15 Lactate Dehydrogenase 860 U/L (333-699) H 07/22/17 01:15 Total Creatine Kinase 110 U/L (35-230) 07/22/17 01:15 Troponin I < 0.01 ng/mL 07/22/17 01:15 NT-Pro-B Natriuret Pep 122 pg/mL (0-450) 07/22/17 01:15 Total Protein 4.8 g/dL (5.8-8.3) L 07/22/17 01:15 Albumin 1.9 g/dL (3.0-4.8) L 07/22/17 01:15 Globulin 2.9 gm/dL 07/22/17 01:15 Albumin/Globulin Ratio 0.7 (1.1-1.8) L 07/22/17 01:15 - Constitutional Appears: Well, No Acute Distress - Head Exam Head Exam: ATRAUMATIC, NORMAL INSPECTION, NORMOCEPHALIC Additional comments: malnourished. - Eye Exam Eye Exam: Normal appearance - ENT Exam ENT Exam: Normal External Ear Exam - Neck Exam Neck Exam: Normal Inspection - Respiratory Exam Respiratory Exam: NORMAL BREATHING PATTERN - Cardiovascular Exam Cardiovascular Exam: absent: JVD - GI/Abdominal Exam GI & Abdominal Exam: absent: Distended - Rectal Exam Rectal Exam: Deferred - Exam Additional comments: Deferred. - Extremities Exam Additional comments: Both lower extremities distal portions are erythematous and swollen. - Back Exam Back Exam: NORMAL INSPECTION - Neurological Exam Neurological Exam: Alert, Awake, Oriented x3 - Psychiatric Exam Psychiatric exam: Normal Affect, Normal Mood - Skin Skin Exam: Normal Color Assessment and Plan - Assessment and Plan (Free Text) Assessment: Legs pain. Body ache. Both leg cellulitis. Multiple sclerosis. Sarcoidosis. Anemia. Plan: Ultram 50 mg PO x 1. Continue present management as per PMD.
[2017-07-23 08:49] LABS: ALB/GLOB RATIO 0.6 (1.1-1.8); ALBUMIN 1.7 g/dL (3.0-4.8); ALT/SGPT 48 U/L (7-56); AST/SGOT 34 U/L (14-36); BLOOD UREA NITROGEN 22 mg/dL (7-21); CALCIUM 7.5 mg/dL (8.4-10.5); GFR AFRICAN-AMERICAN > 60; GFR NON-AFRICAN AMERICAN > 60
[2017-07-23] MEDS: BIOTIN 10000 MCG PO SCH (10:07)
[2017-07-23] MEDS: AMPHETAMINE PO SCH (10:08)
[2017-07-23] MEDS: DEXTROAMPHETAMINE PO SCH (10:08)
[2017-07-23] MEDS: Morphine 30 mg SR Tab PO SCH ×2 (10:14→21:33)
[2017-07-23] MEDS: Lactobacillus Acidophilus 500 MU Cap PO SCH (10:15)
[2017-07-23] MEDS: Potassium Chloride 10 mEq ER Tab PO SCH (10:16)
--- NOTE | 2017-07-23 16:11 | CARD ---
APPROVED REPORT EKG Measurement Heart [id number] <Conclusion> Normal sinus rhythm Low voltage QRS Cannot rule out Inferior infarct, age undetermined Cannot rule out Anterior infarct, age undetermined Abnormal ECG
--- NOTE | 2017-07-23 20:26 | CON ---
DATE: HISTORY OF PRESENT ILLNESS: A 62-year-old female seen at bedside for consultation, evaluation and management of recent lower extremity bilateral swelling. The patient states that approximately 3 days ago, her legs started to swell, they became red hot, swollen and quite painful. She is also complaining of deep cracks on her heels, which started at the same time. She denied experiencing any fever, chills, nausea, vomiting or shortness of breath, but was concerned with the lower leg swelling and went to the emergency room for admission. The patient's medical history is significant for essential hypertension, chronic anemia, nephrolithiasis, sarcoidosis and multiple sclerosis. SOCIAL HISTORY: The patient is . She used to be a heavy smoker, quit approximately 5 years ago. She denies illicit drug use. Denies alcohol abuse. ALLERGIES: INCLUDE PENICILLIN, SULFA, CODEINE AND BLACK PEPPER. MEDICATIONS: All medications are noted in MAR. PAST SURGICAL HISTORY: Includes lithotripsies. LABORATORY DATA: Laboratory findings reveal white count of 4.2, hemoglobin of 9.3, hematocrit of 27.9, platelet count of 290. There is no microbiology report noted. There were no vascular studies noted. Chest x-ray reveals no active pulmonary disease. OBJECTIVE: VITAL SIGNS: Revealed temperature of 92.8, pulse rate of 75, blood pressure of 102/65, respiratory rate of 20. EXTREMITIES: Weakly palpable dorsalis pedis pulse and nonpalpable posterior tibial pulse, weakly palpable popliteal pulse noted. Decreased protective sensation noted bilaterally. Both lower legs present with +2 nonpitting lower extremity edema. There was noted to be pallor with erythema. There are numerous purulent-filled small blister formations on the left lower leg, this was noted to be abrasions on the lateral proximal aspect of each lower leg secondary to banging as per patient. He presents with full-thickness fissuring at the heels and on the lateral aspect of each foot, which are quite painful upon palpation. The wounds all appear superficial, none of them probe to tendon or bone. There is no malodor noted. ASSESSMENT: Bilateral lower extremity edema with resolving cellulitis, most likely secondary to wound sustained on both legs. PLAN: We will order arterial and venous Dopplers to ascertain lower extremity perfusion. Culture was taken and submitted for sensitivities. All wounds are superficial. At this point, an osteomyelitis can be clinically ruled out. As per the patient, the legs have gone down considerably in 1 day admission. The wounds were cleansed with normal sterile saline and application of Bactroban nonadherent dry sterile dressing was applied. The patient will be seen and followed daily and we will rate vascular results and culture results. Jose Guadalupe Martínez DPM
--- NOTE | 2017-07-23 23:24 | PN ---
DATE: SUBJECTIVE: The patient is 62-years old, seen and examined, sitting in chair, seems to be comfortable. States her leg swelling is better. Foot pain is better. No nausea, vomiting, or diarrhea. Eating and tolerating well. PHYSICAL EXAMINATION VITAL SIGNS: She is afebrile, pulse 75, respirations 20, blood pressure 102/65. LUNGS: Bilateral fair airflow. No rhonchi or crackle. HEART: S1 and S2 audible. ABDOMEN: Soft and nontender. No rebound. No guarding. NEUROLOGIC: The patient is awake, alert, and oriented. Bilateral legs +1 edema. Bilateral feet are in dressing done by a Projection Technician. LABORATORY DATA: Sodium 133, potassium 3.6, chloride 106, CO2 of 23, BUN 22, creatinine 0.7, blood sugar of 59. LFTs are within normal limits. Albumin 1.7. ASSESSMENT AND PLAN: 1. Bilateral leg edema. 2. Hypoalbuminemia. 3. Anemia. PLAN: Follow up bilateral leg Doppler arterial and venous. Continue on IV diuretics. Start her on Pro-Stat. Continue analgesic. Follow up CBC and CMP in a.m. Rad Onofre MD
[2017-07-24 09:13] LABS: ALB/GLOB RATIO 0.6 (1.1-1.8); ALBUMIN 1.8 g/dL (3.0-4.8); ALT/SGPT 52 U/L (7-56); AST/SGOT 30 U/L (14-36); BLOOD UREA NITROGEN 21 mg/dL (7-21); CALCIUM 7.5 mg/dL (8.4-10.5); GFR AFRICAN-AMERICAN > 60; GFR NON-AFRICAN AMERICAN > 60
[2017-07-24] MEDS: BIOTIN 10000 MCG PO SCH (10:11)
[2017-07-24] MEDS: DEXTROAMPHETAMINE PO SCH (10:13)
[2017-07-24] MEDS: AMPHETAMINE PO SCH (10:13)
[2017-07-24] MEDS: Potassium Chloride 10 mEq ER Tab PO SCH (10:28)
[2017-07-24] MEDS: Morphine 30 mg SR Tab PO SCH ×2 (10:29→22:37)
[2017-07-24] MEDS: Lactobacillus Acidophilus 500 MU Cap PO SCH (10:29)
--- NOTE | 2017-07-24 18:37 | CP.PCM.PN ---
<Jillian Briggs - Last Filed: 07/24/17 18:33> Subjective - Date & Time of Evaluation Date of Evaluation: 07/24/17 Time of Evaluation: 13:25 - Subjective Subjective: Podiatry Consult Note - Dr. Puckett 62 year old female seen at bedside for bilateral superficial ulcerations and bilateral lower leg cellulits. She reports pian and discomfort when moving legs to areas of high pressure while in bed. Pt has no acute overnight events. Objective - Vital Signs/Intake and Output Vital Signs (last 24 hours): Temp Pulse Resp BP Pulse Ox 97.4 F L 59 L 20 96/60 L 98 07/24/17 08:07 07/24/17 08:07 07/24/17 08:07 07/24/17 10:25 07/24/17 08:07 - Medications Medications: Current Medications Buspirone HCl (Buspar) 5 mg PO BID [facility] PRN Reason: Protocol Last Admin: 07/24/17 18:12 Dose: 5 mg Citalopram Hydrobromide (Celexa) 20 mg PO DAILY [facility] Last Admin: 07/24/17 17:24 Dose: 20 mg Furosemide (Lasix) 40 mg IVP DAILY [facility] Last Admin: 07/24/17 10:25 Dose: 40 mg Lactobacillus Acidophilus (Bacid Acidophilus) 2 cap PO DAILY [facility] Last Admin: 07/24/17 10:29 Dose: 2 cap Morphine Sulfate (Morphine Extended Release Tab) 30 mg PO Q12 [facility] Last Admin: 07/24/17 10:29 Dose: 30 mg Mupirocin (Bactroban Ointment) 0 gm TOP BID [facility] Last Admin: 07/24/17 18:11 Dose: Not Given Non-Formulary Medication (Dextroamphetamine/Amphetamine [Adderall 20 Mg Tablet] ) 20 mg PO DAILY [facility] Last Admin: 07/24/17 10:13 Dose: Not Given Non-Formulary Medication (Biotin [Biotin]) 10,000 mcg PO DAILY [facility] Last Admin: 07/24/17 10:11 Dose: Not Given Ondansetron HCl (Zofran Inj) 4 mg IVP Q6H PRN PRN Reason: Nausea/Vomiting Last Admin: 07/24/17 10:25 Dose: 4 mg Polyethylene Glycol (Miralax) 17 gm PO QWK [facility] Last Admin: 07/22/17 10:31 Dose: 17 gm Potassium Chloride (Klor-Con 10) 10 meq PO DAILY [facility] Last Admin: 07/24/17 10:28 Dose: 10 meq Tramadol HCl (Ultram) 50 mg PO Q6 PRN PRN Reason: Pain, moderate (4-7) Last Admin: 07/24/17 10:29 Dose: 50 mg - Constitutional Appears: Well, Non-toxic, No Acute Distress, Chronically Ill - Extremities Exam Additional comments: Bilateral Lower extremity focused. Dressings intact, with serous strikethrough proximally. VASC: Weakly palpable DP pulses, non-palpable PT pulses. CRF to all 10 digits < 3 seconds. Temperature runs warm to cool proximal to distal, within normal limits. +2 pitting edema noted bilaterally. DERM: Distal 2/3 of legs and heels bilaterally tender to palpation with localized erythema, left greater than right in intensity. Diffuse circumferential pustules noted to bilateral lower legs, left greater than right. single heel fissures noted bilaterally at heels. Lateral aspect fo right foot noted to have superficial ulceration with friable epitheliazed base. NERUO: Diminished protective sensation bilaterally. MUSK Lower leg and pedal muscle strenght is graded 5/5. No mimitation to range of motion. - Neurological Exam Neurological Exam: Alert, Awake, Oriented x3 - Psychiatric Exam Psychiatric exam: Normal Affect, Normal Mood Assessment and Plan - Assessment and Plan (Free Text) Assessment: 62 year old female with CKD bilateral cellulits and pustules. Plan: Pt seen and evaluated. Discussed with attending, Dr Puckett. Chart, labs, and vitals reviewed. WBC= 4.2; afebrile Wound culture- pending Venous duplex- pending Cleansed lower legs with sterile salne, dressed with bactroban, adaptic, and DSD. Podiatry will continue to follow patient while inhosue. <Valerie Puckett - Last Filed: 07/29/17 13:58> Objective - Vital Signs/Intake and Output Vital Signs (last 24 hours): Temp Pulse Resp BP Pulse Ox 97.6 F 79 20 107/75 97 07/27/17 16:30 07/27/17 16:30 07/27/17 16:30 07/27/17 16:30 07/27/17 16:30 - Labs Labs: 07/27/17 08:00 07/27/17 08:00 Attending/Attestation - Attestation I have personally seen and examined this patient.: Yes I have fully participated in the care of the patient.: Yes I have reviewed all pertinent clinical information, including history, physical exam and plan: Yes
--- NOTE | 2017-07-24 20:38 | PN ---
DATE: SUBJECTIVE: The patient is 62-year-old seen and examined, sitting in chair, seems to be comfortable. Looks pale. Complaint of generalized weakness. Bilateral feet was seen by [facility] few minutes ago. PHYSICAL EXAMINATION: VITAL SIGNS: The patient is afebrile, pulse 59, respirations 20, blood pressure 96/60. LUNGS: Bilateral good airflow. No rhonchi or crackle. HEART: S1 and S2 audible. ABDOMEN: Soft and nontender. No rebound. No guarding. NEUROLOGIC: The patient is awake and alert. Able to communicate. Bilateral legs +2 edema. Bilateral leg and feet has dressing on. ASSESSMENT: 1. Bilateral leg edema. 2. Hypoalbuminemia. 3. Chronic anemia. 4. Multiple sclerosis. 5. Sarcoidosis. 6. Bilateral foot ulcer. PLAN: The patient is currently on IV diuretics. We will follow up CBC and CMP in a.m. The patient is deconditioned. She will be admitted and refer to TCU evaluation. Follow up her electrolyte and CBC in a.m. Rad Onofre MD
--- NOTE | 2017-07-25 06:59 | CON ---
DATE: COVERING FOR: Dr. Guo, who I am covering this weekend. HISTORY OF PRESENT ILLNESS: Rachelle Mclaughlin is a 62-year-old female with longstanding history of anemia. She has been treated with iron infusions by Dr. Guo in the past, and she was evaluated for anemia in [address] Damon Borden. The patient tells me that she had been feeling weak since her admission on 07/22/2017 for bilateral leg edema. She has been receiving Lasix, and she has decreased appetite in recent days. She has lost 100 pounds in the past 10 years she states, and she did have some unspecified gastric bypass surgery. She says that she takes multivitamins, B-complex, but cannot tolerate oral iron. She is not specific about days when she had her last iron infusion. Her current hemoglobin is 9.3. The patient has been transfused packed cells in the past. There is no available blood bank data from this admission, but previous admissions showed that she received transfusions in 2010 and was still anemic in 2011 and had multiple colon polyps diagnosed by Dr. Omid Sheridan in the past as well as nephrolithiasis and ureteral stent placement in mid-2016. She has recently had another urethral stent placed. Dr. Guo was consulted to reevaluate her patient for anemia. It appears that the patient has been seen in [facility], here at [facility] for iron deficiency anemia in January, February and March 2017. There was no peripheral blood smear available for my review. Specimen available was already almost three days old. Blood work will be repeated in the morning with request for preparation of peripheral blood smear. ALLERGIES: CODEINE, PENICILLIN, SULFONAMIDES, BLACK PEPPER. CURRENT MEDICATIONS: Lactobacillus acidophilus, mupirocin topical b.i.d., Biotin 10,000 mcg daily, BuSpar 5 mg daily, Celexa 20 mg at dinner time, dextroamphetamine or Adderall 20 mg daily, Klor-Con 10 mEq p.o. daily, Lasix 40 mg IV daily, MiraLax 17 gm daily, Morphine extended release 30 mg p.o. q.12 hours, Ultram 50 mg p.o. q.6 hours p.r.n. PAST MEDICAL HISTORY: Multiple sclerosis, sarcoidosis, chronic anemia, hypertension, nephrolithiasis, chronic leg swelling, malnutrition, unspecified abdominal surgery. FAMILY HISTORY: Mother had MDS. There was one or two family members with cancer, but she was nonspecific of the type. She denies any history of cancer. SOCIAL HISTORY: Lives with her son, used to be a heavy smoker, quit couple of years ago. REVIEW OF SYSTEMS: The patient denies headache. She does have diminished vision in the right eye which she attributes to sarcoidosis. She denies chest pain, near syncope. She complains of generalized weakness, generalized aches and pains, chronic swelling of the lower extremities, and chronic weight loss. The patient states her appetite is much improved when she is not anemic. She denies abdominal pain, nausea, vomiting, diarrhea, constipation. She currently has no flank pain, gross hematuria, melena, hematochezia, hematemesis. PHYSICAL EXAMINATION: GENERAL: The patient is cachectic with temporal wasting. HEENT: Hair distribution normal. Conjunctivae pale. Tongue pink and moist, not loose, not enlarged, papillae appears normal. No thrush seen. NECK: No adenopathy of the head and neck, supraclavicular, axillary regions. BREASTS: Atrophied small symmetrical, without visible palpable lesions. LUNGS: Clear A and P. CARDIAC: Regular rhythm. S1, S2. No murmur or gallops. ABDOMEN: No masses. No organomegaly. Nontender. Nondistended. No increased venous collaterals over the chest, trunk or abdomen. There is a small periumbilical reducible hernia about a centimeter in size. EXTREMITIES: Lower legs are wrapped. There is no active weeping to the dressing that I can appreciate. I do not remove the dressings. The patient walked, initially bent over but was able to straightened up somewhat and was able to ambulate to the bathroom. The patient ambulates with a cane. LABORATORY DATA: White count 4.2, hemoglobin 9.3, and platelets 290,000. Granulocytes 79%, leukocytes 14.3%, monocytes 6.7%; and this was done in 07/22/2017, day of admission. Today's chemistries are unremarkable except for low anion gap. Random glucose is 64, calcium 7.5 with albumin of 1.8. Albumin globulin ratio is low. On admission, her LDH was elevated. It was not repeated and her transaminases were mildly elevated, but they had normalized. Gram stain from her left leg through gram-negative rosario and staphylococcus aureus. This patient's red blood cell indices reveal MCV 93 which is normal and MCHC normal, RDW elevated at 16.9. ASSESSMENT: The patient is a 62-year-old female with malnutrition and history of chronic anemia with episodes of iron deficiency anemia in the past which may be related to urinary blood loss from kidney stones on a chronic basis. She has a number of chronic disorders including sarcoidosis which may also contribute and unspecified gastric surgery, likely impeding absorption of nutrients, iron and B12. PLAN: Review of peripheral blood smear. Iron studies, B12 folate, RBC folate, SPEP, and immunofixation. Urinalysis, repeat CBC, haptoglobin, repeat LDH, retic count. Direct Nayely for . Further serology is based on these results. Dr. Guo will evaluate the patient and the results, when she becomes available sometime tomorrow. Thank you very much. Emely Carlton MD
--- NOTE | 2017-07-25 08:55 | US ---
HISTORY: Leg pain and swelling. Evaluate for DVT PHYSICIAN(S): Kamlesh Ayers MD. TECHNIQUE: Duplex sonography and color-flow Doppler with graded compression were used to evaluate the deep venous systems of both lower extremities. The tibial veins were not evaluated due to bandages. FINDINGS: The visualized deep venous systems of both lower extremities are sonographically normal and compressible. Normal wave forms and augmentation are seen. There is no sonographic evidence for deep venous thrombosis in the visualized segments of both lower extremities. IMPRESSION: No sonographic evidence for deep venous thrombosis in the visualized segments of both lower extremities.
[2017-07-25] MEDS: Potassium Chloride 10 mEq ER Tab PO SCH (10:00)
[2017-07-25] MEDS: Lactobacillus Acidophilus 500 MU Cap PO SCH (10:00)
[2017-07-25] MEDS: Morphine 30 mg SR Tab PO SCH ×2 (10:01→22:13)
[2017-07-25] MEDS: AMPHETAMINE PO SCH (10:05)
[2017-07-25] MEDS: DEXTROAMPHETAMINE PO SCH (10:05)
[2017-07-25] MEDS: BIOTIN 10000 MCG PO SCH (10:05)
[2017-07-25] MEDS: Vancomycin 1gm in NS 250ml 1 GM/250 ML BAG IVPB SCH (12:40)
[2017-07-25 13:06] LABS: PH,URINE 5.5 (4.7-8.0); URINE BILIRUBIN NEGATIVE (NEGATIVE); URINE BLOOD NEGATIVE (NEGATIVE); URINE GLUCOSE (UA) NEGATIVE (NEGATIVE); URINE LEUKOCYTE ESTERASE NEGATIVE Leu/uL (NEGATIVE); URINE NITRATE NEGATIVE (NEGATIVE); URINE PROTEIN NEGATIVE mg/dL (<30 mg/dL); URINE UROBILINOGEN 0.2 E.U./dL (<1 E.U./dL)
[2017-07-25 13:08] LABS: URINE APPEARANCE CLEAR (CLEAR); URINE COLOR YELLOW (YELLOW)
[2017-07-25] MEDS: Aztreonam 1 Gm in NS 100mL 100 ML IVPB SCH ×2 (13:47→22:14)
--- NOTE | 2017-07-25 14:52 | US ---
PROCEDURE: Lower extremity DANIEL exam HISTORY: Peripheral vascular disease with pain and ulceration. Previous smoker. PHYSICIAN(S): Kamlesh Ayers MD. FINDINGS: The resting DANIEL's are normal: right, 1.29and left, 1.38. The brachial systolic pressures are symmetric. The high thigh pressures and waveforms are relatively normal. The calf PVR waveforms augment normally. No significant gradients are noted across the thighs. The ankle and metatarsal waveforms are relatively normal and symmetric. No significant pressure gradients are noted across the lower legs. IMPRESSION: 1. Normal DANIEL and PVR examination at rest.
--- NOTE | 2017-07-25 18:25 | PN ---
DATE: SUBJECTIVE: The patient is 62 years old, seen and examined, seems to be doing a little better. Wound is being cared by Dr. Puckett who thinks the patient may need IV antibiotics. She has grown Klebsiella pneumonia and MRSA from her leg wound. Complained of constipation. No fever, no chills. No nausea or vomiting. PHYSICAL EXAMINATION: VITAL SIGNS: She is afebrile, pulse 74, respirations 19, blood pressure 102/84. LUNGS: Bilateral fair airflow. No rhonchi or crackle. HEART: S1, S2 audible. ABDOMEN: Soft, nontender. No rebound, no guarding. NEUROLOGIC: The patient is awake, alert, oriented, able to communicate. Bilateral leg +1 edema, bilateral feet are in dressing. LABORATORY EXAMINATION: B12 and folic acid are pending. However, her chemistry is within normal range. She has bilateral leg Doppler, arterial and venous which is negative for DVT. ASSESSMENT: Bilateral leg edema, improving. Bilateral leg cellulitis, improving. Bilateral leg ulcers growing Klebsiella and methicillin-resistant Staphylococcus aureus, hypoalbuminemia, history of sarcoidosis, multiple sclerosis. PLAN: She has been started on vancomycin. We will request for TCU evaluation to complete her course of antibiotic and rehab and local wound care. Once she is accepted, she will be transferred to TCU. Rad Onofre MD
--- NOTE | 2017-07-25 18:36 | CP.PCM.CON ---
History of Present Illness - History of Present Illness History of Present Illness: 62 year old female with PMH of chronic anemia, HTN, multiple sclerosis, sarcoidosis, history of pancreatitis, S/P left ureteral stent came in to [facility] complaining of generalized weakness, poor appetite and weeping of her lower extremities associated with swelling. She has a pet dog at home which at times brushes on her legs. She has had leg swelling but not this much weeping, and it became hot and painful. She denies soaking her legs in water, no walking barefoot on soil. She also denies fever or chills, no nausea or vomiting, no chest pain, no SOB, no headache or dizziness, no abdominal pain, no diarrhea, on dysuria. Infectious Diseases consult is requested to further evaluate and manage. Review of Systems - Review of Systems All systems: reviewed and no additional remarkable complaints except (as per HPI ) Past Patient History - Infectious Disease Hx of Infectious Diseases: None - Past Social History Smoking Status: Former Smoker - CARDIAC Hx Cardiac Disorders: Yes Hx Hypertension: Yes - PULMONARY Hx Respiratory Disorders: Yes (SMOKED CIGARETTES QUIT 40 YRS. PPD) - NEUROLOGICAL Hx Neurological Disorder: Yes Hx Multiple Sclerosis: Yes - HEENT Hx HEENT Problems: Yes Other/Comment: 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 - RENAL Hx Chronic Kidney Disease: Yes (L KIDNEY CYST,H/O LITHOTRYPSIES) Hx Kidney Stones: Yes - ENDOCRINE/METABOLIC Hx Endocrine Disorders: No Hx Hyperthyroidism: Yes - HEMATOLOGICAL/ONCOLOGICAL Hx Blood Disorders: Yes Hx Blood Transfusions: Yes Hx Blood Transfusion Reaction: No - INTEGUMENTARY Hx Dermatological Problems: Yes Other/Comment: 06-09-17 BILATERAL LE GROSS EDEMA,PITTING +4.THICK TO HIN FLAKY SKIN. HAS ANASARCA. EDEMA TO LEFT ARM WITH SOME BRUISED AREA. - MUSCULOSKELETAL/RHEUMATOLOGICAL Hx Falls: No - GASTROINTESTINAL Hx Gastrointestinal Disorders: No - GENITOURINARY/GYNECOLOGICAL Hx Genitourinary Disorders: Yes Hx Reproductive Disorders: No - PSYCHIATRIC Hx Emotional Abuse: No Hx Physical Abuse: No Hx Substance Use: No - SURGICAL HISTORY Hx Appendectomy: Yes Hx Cholecystectomy: Yes - ANESTHESIA Hx Anesthesia Reactions: No Hx Malignant Hyperthermia: No Meds Allergies/Adverse Reactions: Allergies Allergy/AdvReac Type Severity Reaction Status Date / Time black pepper Allergy ITCHING Verified 07/22/17 04:45 codeine Allergy NAUSEA Verified 07/22/17 04:45 Penicillins Allergy SWELLING Verified 07/22/17 04:45 Sulfa (Sulfonamide Allergy RASH Verified 07/22/17 04:45 Antibiotics) - Medications Medications: Current Medications Buspirone HCl (Buspar) 5 mg PO BID [facility] PRN Reason: Protocol Last Admin: 07/25/17 17:43 Dose: 5 mg Citalopram Hydrobromide (Celexa) 20 mg PO DIN [facility] Last Admin: 07/25/17 17:43 Dose: 20 mg Furosemide (Lasix) 40 mg IVP DAILY [facility] Last Admin: 07/25/17 10:02 Dose: 40 mg Aztreonam (Azactam 1 Gm) 100 mls @ 100 mls/hr IVPB Q8 [facility] PRN Reason: Protocol Stop: 08/01/17 14:01 Last Admin: 07/25/17 13:47 Dose: 100 mls/hr Vancomycin HCl (Vancomycin 1gm) 1 gm in 250 mls @ 167 mls/hr IVPB Q12H [facility] PRN Reason: Protocol Last Admin: 07/25/17 12:40 Dose: 167 mls/hr Lactobacillus Acidophilus (Bacid Acidophilus) 2 cap PO DAILY [facility] Last Admin: 07/25/17 10:00 Dose: 2 cap Morphine Sulfate (Morphine Extended Release Tab) 30 mg PO Q12 [facility] Last Admin: 07/25/17 10:01 Dose: 30 mg Mupirocin (Bactroban Ointment) 0 gm TOP BID [facility] Last Admin: 07/25/17 17:43 Dose: 1 applic Non-Formulary Medication (Dextroamphetamine/Amphetamine [Adderall 20 Mg Tablet] ) 20 mg PO DAILY [facility] Last Admin: 07/25/17 10:05 Dose: Not Given Non-Formulary Medication (Biotin [Biotin]) 10,000 mcg PO DAILY [facility] Last Admin: 07/25/17 10:05 Dose: Not Given Ondansetron HCl (Zofran Inj) 4 mg IVP Q6H PRN PRN Reason: Nausea/Vomiting Last Admin: 07/25/17 10:10 Dose: 4 mg Polyethylene Glycol (Miralax) 17 gm PO QWK [facility] Last Admin: 07/22/17 10:31 Dose: 17 gm Potassium Chloride (Klor-Con 10) 10 meq PO DAILY [facility] Last Admin: 07/25/17 10:00 Dose: 10 meq Tramadol HCl (Ultram) 50 mg PO Q6 PRN PRN Reason: Pain, moderate (4-7) Last Admin: 07/25/17 03:07 Dose: 50 mg Physical Exam - Constitutional Appears: Chronically Ill - Head Exam Head Exam: NORMAL INSPECTION - ENT Exam ENT Exam: Mucous Membranes Moist - Neck Exam Neck exam: Negative for: Meningismus - Respiratory Exam Respiratory Exam: Decreased Breath Sounds - Cardiovascular Exam Cardiovascular Exam: +S1, +S2 - GI/Abdominal Exam GI & Abdominal Exam: Soft. absent: Tenderness - Extremities Exam Additional comments: both legs with dressings in place Results - Vital Signs Recent Vital Signs: Last Vital Signs Temp 97.6 F 07/25/17 16:00 Pulse 74 07/25/17 16:00 Resp 20 07/25/17 16:00 BP 91/58 L 07/25/17 16:00 Pulse Ox 98 07/25/17 16:00 - Labs Result Diagrams: 07/22/17 01:15 07/24/17 08:45 Labs: Laboratory Results - last 24 hr 07/25/17 07/25/17 07/25/17 06:37 06:37 06:37 Retic Count 2.60 H Lactate Dehydrogenase 638 Vitamin B12 > 1000 H Folate 14.0 Urine Color Urine Appearance Urine pH Ur Specific Reading Urine Protein Urine Glucose (UA) Urine Ketones Urine Blood Urine Nitrate Urine Bilirubin Urine Urobilinogen Ur Leukocyte Esterase MARGRET, Poly Interpret Negative 07/25/17 12:08 Retic Count Lactate Dehydrogenase Vitamin B12 Folate Urine Color Yellow Urine Appearance Clear Urine pH 5.5 Ur Specific Reading 1.010 Urine Protein Negative Urine Glucose (UA) Negative Urine Ketones Negative Urine Blood Negative Urine Nitrate Negative Urine Bilirubin Negative Urine Urobilinogen 0.2 Ur Leukocyte Esterase Negative MARGRET, Poly Interpret Assessment & Plan - Assessment and Plan (Free Text) Plan: Assessment bilateral lower extremity skin and skin structure infection with MRSA and Klebsiella chronic anemia HTN multiple sclerosis sarcoidosis history of pancreatitis S/P left ureteral stent Plan Started patient on Vanco and Aztreonam and will monitor clinically follow up doppler U/S of legs follow up further plans of Podiatry
[2017-07-26] MEDS ORDERED: DEXTROAMPHETAMINE PO SCH ×2 (01:15→07:00)
[2017-07-26] MEDS ORDERED: AMPHETAMINE PO SCH ×2 (01:15→07:00)
[2017-07-26] MEDS: Vancomycin 1gm in NS 250ml 1 GM/250 ML BAG IVPB SCH ×2 (02:58→11:33)
[2017-07-26 07:00] LABS: MEAN CELL VOLUME 94.5 fl (80.0-105.0); MEAN CORPUSCULAR HEMOGLOBIN 31.6 pg (25.0-35.0); MEAN CORPUSCULAR HGB CONC 33.5 g/dl (31.0-37.0); MEAN PLATELET VOLUME 8.9 fl (7.0-11.0); RBC 2.53 10^6/uL (3.5-6.1); RED CELL DISTRIBUTION WIDTH 17.9 % (11.5-14.5); WHITE BLOOD COUNT 4.6 10^3/ul (4.5-11.0)
[2017-07-26] MEDS: Aztreonam 1 Gm in NS 100mL 100 ML IVPB SCH ×2 (07:27→13:58)
[2017-07-26 07:34] LABS: ALB/GLOB RATIO 0.6 (1.1-1.8); ALBUMIN 1.6 g/dL (3.0-4.8); ALT/SGPT 46 U/L (7-56); AST/SGOT 32 U/L (14-36); BLOOD UREA NITROGEN 19 mg/dL (7-21); CALCIUM 7.3 mg/dL (8.4-10.5); GFR AFRICAN-AMERICAN > 60; GFR NON-AFRICAN AMERICAN > 60
--- NOTE | 2017-07-26 08:33 | PQF MALNUT ---
This form is a permanent part of the medical record Dr. Carlton, Your consult of 07/24/17 noted that patient is cachectic and has malnutrition. This diagnosis requires specificity of severity (mild, moderate, severe). Please document. Clarification of your documentation is requested to better reflect the severity of illness and intensity of treatment of your patient. Indicators present [x] Cachexia (due to severe malnutrition) [x] Albumin < 2.8 [] Decreased Pre-albumin [x] Dietary Consult [x] Provider documentation reflects BMI of: []_20 [x] Low serum proteins [x] Documented weight loss [] Inability to consume adequate caloric intake [] Anorexic [] Other: [] Location in the medical record that reflects the above clinical findings: [] Treatment Provided: [] PHYSICIAN'S RESPONSE Based on your medical judgment of the clinical indicators outlined above, are you treating this patient for a known or suspected: Type of Malnutrition Severity [] Mild [] Moderate [] Severe [] Protein calorie [] Mild [] Moderate [] severe [] Other, please indicate: []_ [] If Unable to Determine, please check the box, sign and date. Present On Admission (POA) Indicator: [] Present at the time of admission [] Not present at the time of admission [] Clinically Undetermined In responding to this query, please exercise your independent professional judgment. The fact that a question is asked does not imply that any particular answer is desired or expected. Thank you for your clarification on this documentation. If you have any questions please call:[ ] * Thank you, [ ]Eva Banegas [facility] #[id number] (please call me if you have any questions). 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 Malnutrition may be described as mild, moderate or severe. There are variations in clinical indicators, lab values and risk factors with each type and degree. When reviewing the nutritional status of the client, the entire clinical picture should be assessed and taken into consideration rather than a focus on a single laboratory value. Mild Malnutrition: patient's weight is noted at 85-95% of normal body weight; BMI 18-18.9; serum albumin 3.0-3.4; total lymphocyte count [id number]. Moderate Malnutrition: patient's weight is noted at 75-85% of normal body weight ; BMI 16-17.9; serum albumin 2.4-3.0; total lymphocyte count 800-1500. Severe Malnutrition: patient's weight is noted at <75% of normal body weight, BMI <16, serum albumin <2.4, total lymphocyte count <800, abnormally low VLDL/ LDL levels, creatinine <0.6, BUN <8, cholesterol <160. Other clinical indicators include: loss of subq fat, muscle wasting of the extremities, skin lesions, decubitus ulcers, hair loss, lethargy, constipation, decreased pulse/ respiratory rates, relative hypotension, hepatomegaly d/t fat infiltration, poor wound healing.~~~~~~ Risk: poor intake d/t food avoidance or NPO status for >7 days, protracted nutritional losses from malabsorption states, hypermetabolic state such as sepsis, prolonged fever, extensive trauma or szymanski, alcohol/drug abuse, advanced age, CKD, trouble chewing or swallowing, some medications, depression/ social isolation, special diets such as low protein Treatment: dietary consultation, protein-calorie dietary supplementation, daily weights, PEG tube, psychiatric consultation, appetite stimulants (Megace). [employer] Principles of Internal Medicine, 17th edition, chapters 9, 72 and 234. The [employer] Nutritional Support Core Curriculum, 2007 MTDD
[2017-07-26] MEDS: Potassium Chloride 10 mEq ER Tab PO SCH (09:27)
[2017-07-26] MEDS: POLYETHYLENE GLYCOL 3350 17 GM/Dose PACKET PO SCH (09:27)
[2017-07-26] MEDS: Lactobacillus Acidophilus 500 MU Cap PO SCH (09:28)
[2017-07-26] MEDS: BIOTIN 10000 MCG PO SCH (09:31)
[2017-07-26] MEDS: Morphine 30 mg SR Tab PO SCH (09:31)
--- NOTE | 2017-07-26 13:40 | CP.PCM.PN ---
<DameonHeena - Last Filed: 07/26/17 13:36> Subjective - Date & Time of Evaluation Date of Evaluation: 07/26/17 Time of Evaluation: 13:36 - Subjective Subjective: 62 year old female seen at bedside with attending Dr. Martínez for bilateral superficial ulcerations and bilateral lower leg cellulitis. Today she admits to feeling overall weakness as she says she needs blood. However, she admits to noticing significant improvement in the appearance of her legs, with decreased pain noted bilaterally. Pt has no acute overnight events. Denies F/C/N/V/CP/SOB Objective - Vital Signs/Intake and Output Vital Signs (last 24 hours): Temp Pulse Resp BP Pulse Ox 97.6 F 74 20 91/58 L 98 07/25/17 16:00 07/25/17 16:00 07/25/17 16:00 07/25/17 16:00 07/25/17 16:00 Intake and Output: 07/26/17 07/26/17 06:59 18:59 Intake Total 420 Balance 420 - Medications Medications: Current Medications Acetaminophen (Tylenol 325mg Tab) 650 mg PO Q4H PRN PRN Reason: Other Buspirone HCl (Buspar) 5 mg PO BID [facility] PRN Reason: Protocol Last Admin: 07/26/17 09:29 Dose: Not Given Citalopram Hydrobromide (Celexa) 20 mg PO DIN [facility] Last Admin: 07/25/17 17:43 Dose: 20 mg Furosemide (Lasix) 40 mg IVP DAILY [facility] Last Admin: 07/25/17 10:02 Dose: 40 mg Home Med (Home Med) 1 unit PO DAILY [facility] Last Admin: 07/26/17 09:31 Dose: Not Given Home Med (Home Med) 1 unit PO 0700 [facility] Aztreonam (Azactam 1 Gm) 100 mls @ 100 mls/hr IVPB Q8 [facility] PRN Reason: Protocol Stop: 08/01/17 14:01 Last Admin: 07/26/17 07:27 Dose: Not Given Vancomycin HCl (Vancomycin 1gm) 1 gm in 250 mls @ 167 mls/hr IVPB Q12H [facility] PRN Reason: Protocol Last Admin: 07/26/17 11:33 Dose: 167 mls/hr Lactobacillus Acidophilus (Bacid Acidophilus) 2 cap PO DAILY [facility] Last Admin: 07/26/17 09:28 Dose: 2 cap Morphine Sulfate (Morphine Extended Release Tab) 30 mg PO Q12 [facility] Last Admin: 07/26/17 09:31 Dose: Not Given Mupirocin (Bactroban Ointment) 0 gm TOP BID [facility] Last Admin: 07/25/17 17:43 Dose: 1 applic Ondansetron HCl (Zofran Inj) 4 mg IVP Q6H PRN PRN Reason: Nausea/Vomiting Last Admin: 07/25/17 22:37 Dose: 4 mg Polyethylene Glycol (Miralax) 17 gm PO QWK [facility] Last Admin: 07/22/17 10:31 Dose: 17 gm Polyethylene Glycol (Miralax) 17 gm PO DAILY [facility] Last Admin: 07/26/17 09:27 Dose: 17 gm Potassium Chloride (Klor-Con 10) 10 meq PO DAILY [facility] Last Admin: 07/26/17 09:27 Dose: 10 meq Tramadol HCl (Ultram) 50 mg PO Q6 PRN PRN Reason: Pain, moderate (4-7) Last Admin: 07/26/17 09:27 Dose: 50 mg - Labs Labs: 07/26/17 06:20 07/26/17 06:20 - Constitutional Appears: Well, Non-toxic, No Acute Distress - Extremities Exam Additional comments: Bilateral Lower extremity focused. Dressings clean dry and intact with no strikethrough noted Vasc: DP/PT pulses faintly palpable 1/4 B/L. CRF to all 10 digits < 3 seconds. Temperature runs warm to cool proximal to distal, within normal limits. +2 pitting edema noted bilaterally, improving since admission Derm: Distal 2/3 of legs and heels bilaterally tender to palpation with localized erythema, R worse than L in intensity. Diffuse circumferential pustules noted to bilateral lower legs, left greater than right. Single heel fissures noted to R heel. Plantar xerosis noted to bilateral feet. Lateral aspect of right foot noted to have superficial ulceration with friable epitheliazed base. Neuro: Diminished protective sensation bilaterally. Ortho: Lower leg and pedal muscle strenght is graded 5/5. No mimitation to range of motion. - Neurological Exam Neurological Exam: Alert, Awake, Oriented x3 - Psychiatric Exam Psychiatric exam: Normal Affect, Normal Mood Assessment and Plan - Assessment and Plan (Free Text) Assessment: 62 year old female with bilateral cellulitis and pustules Plan: Pt seen and evaluated at bedside with attending Dr. Martínez Chart, labs, and vitals reviewed. WBC 4.6, afebrile Wound culture of L leg positive for Klebsiella, MRSA Continue Aztreonam, Vancomycin as per ID Venous duplex (-) for DVT Arterial doppler studies - normal DANIEL/PVR values at rest Cleansed lower legs with sterile saline and dressed with bactroban, adaptic, and DSD Podiatry will continue to follow patient while in house <Jose Guadalupe Martínez - Last Filed: 07/26/17 13:59> Objective - Vital Signs/Intake and Output Vital Signs (last 24 hours): Temp Pulse Resp BP Pulse Ox 97.6 F 74 20 91/58 L 98 07/25/17 16:00 07/25/17 16:00 07/25/17 16:00 07/25/17 16:00 07/25/17 16:00 Intake and Output: 07/26/17 07/26/17 06:59 18:59 Intake Total 420 Balance 420 - Medications Medications: Current Medications Acetaminophen (Tylenol 325mg Tab) 650 mg PO Q4H PRN PRN Reason: Other Buspirone HCl (Buspar) 5 mg PO BID JENNY PRN Reason: Protocol Last Admin: 07/26/17 09:29 Dose: Not Given Citalopram Hydrobromide (Celexa) 20 mg PO DIN [facility] Last Admin: 07/25/17 17:43 Dose: 20 mg Furosemide (Lasix) 40 mg IVP DAILY [facility] Last Admin: 07/25/17 10:02 Dose: 40 mg Home Med (Home Med) 1 unit PO DAILY [facility] Last Admin: 07/26/17 09:31 Dose: Not Given Home Med (Home Med) 1 unit PO 0700 [facility] Aztreonam (Azactam 1 Gm) 100 mls @ 100 mls/hr IVPB Q8 [facility] PRN Reason: Protocol Stop: 08/01/17 14:01 Last Admin: 07/26/17 07:27 Dose: Not Given Vancomycin HCl (Vancomycin 1gm) 1 gm in 250 mls @ 167 mls/hr IVPB Q12H [facility] PRN Reason: Protocol Last Admin: 07/26/17 11:33 Dose: 167 mls/hr Lactobacillus Acidophilus (Bacid Acidophilus) 2 cap PO DAILY [facility] Last Admin: 07/26/17 09:28 Dose: 2 cap Morphine Sulfate (Morphine Extended Release Tab) 30 mg PO Q12 [facility] Last Admin: 07/26/17 09:31 Dose: Not Given Multi-Ingredient Cream (Hydrocerin Cream) 0 ea TOP BID [facility] Mupirocin (Bactroban Ointment) 0 gm TOP BID [facility] Last Admin: 07/25/17 17:43 Dose: 1 applic Ondansetron HCl (Zofran Inj) 4 mg IVP Q6H PRN PRN Reason: Nausea/Vomiting Last Admin: 07/25/17 22:37 Dose: 4 mg Polyethylene Glycol (Miralax) 17 gm PO QWK [facility] Last Admin: 07/22/17 10:31 Dose: 17 gm Polyethylene Glycol (Miralax) 17 gm PO DAILY [facility] Last Admin: 07/26/17 09:27 Dose: 17 gm Potassium Chloride (Klor-Con 10) 10 meq PO DAILY [facility] Last Admin: 07/26/17 09:27 Dose: 10 meq Tramadol HCl (Ultram) 50 mg PO Q6 PRN PRN Reason: Pain, moderate (4-7) Last Admin: 07/26/17 09:27 Dose: 50 mg - Labs Labs: 07/26/17 06:20 07/26/17 06:20 Attending/Attestation - Attestation I have personally seen and examined this patient.: Yes I have fully participated in the care of the patient.: Yes I have reviewed all pertinent clinical information, including history, physical exam and plan: Yes
--- NOTE | 2017-07-26 14:47 | PN ---
DATE: SUBJECTIVE: The patient is a 62-year-old, seen and examined, states she has big bowel movements, felt better after that, complained of generalized weakness, bilateral feet pain. PHYSICAL EXAMINATION GENERAL: Has generalized weakness, looks pale. VITAL SIGNS: She is afebrile, pulse 74, respirations 20, blood pressure 91/58. LUNGS: Bilateral fair airflow. No rhonchi or crackle. HEART: S1 and S2 audible. ABDOMEN: Soft, nontender. No rebound. No guarding. NEUROLOGICAL: The patient is awake, alert, and oriented, able to communicate. EXTREMITIES: Bilateral legs +1 edema and ulcer is dressed. LABORATORY DATA: WBC is 4.6, hemoglobin 8, hematocrit 23.9, platelet count of 235. Chemistry; sodium 135, potassium 4.3, chloride 105, CO2 of 28, BUN of 19, creatinine 0.7, blood sugar of 82. LFTs are within normal limits. Her leg wound is positive for Klebsiella pneumonia and MRSA. ASSESSMENT: 1. Hypoalbuminemia. 2. Multiple sclerosis. 3. Sarcoidosis. 4. Symptomatic anemia. 5. Constipation secondary to narcotics. PLAN: Currently, the patient is on Azactam, she is getting potassium supplementation. The patient will receive 2 packed rbc's. She is getting vancomycin. We will continue her on morphine sulfate. We will follow up her CBC and CMP in a.m. Rad Onofre MD
[2017-07-26] MEDS ORDERED: DiphenhydrAMINE 50 mg/ml Inj IVP ONE (16:39)
[2017-07-26] MEDS: Hydrocerin(120 gm) TOP SCH (17:47)
[2017-07-26] MEDS ORDERED: Morphine 30 mg SR Tab PO SCH (22:00)
[2017-07-26] MEDS: oxyCODONE 10 mg ER Tab (oxyCONTIN) PO SCH (22:19)
--- NOTE | 2017-07-27 00:58 | PN ---
DATE: 07/26/2017 SUBJECTIVE: The patient in bed in no acute distress, nontoxic. PHYSICAL EXAMINATION: VITAL SIGNS: Temperature is 98, blood pressure is 106/70, respiratory rate of 18. HEENT: Examination of HEENT is unremarkable. NECK: Supple. LUNGS: Have decreased breath sounds. HEART: Normal S1, S2. ABDOMEN: [place] is soft, nontender. LABORATORY EXAMINATION: Reveals a white count of 4.6, hemoglobin 8, platelets of 235. BUN of 19, creatinine of 0.7. Urinalysis is noted. Microbiology reveals leg culture with Klebsiella pneumoniae with MRSA.. ASSESSMENT/PLAN: This is a 62-year-old female seen earlier this morning in room 369, bed 2 with chronic anemia, hypertension, multiple sclerosis, sarcoidosis, pancreatitis, left ureteral stent, who is admitted with [place] with bilateral lower extremity skin and soft tissue infection with methicillin-resistant Staphylococcus aureus, Klebsiella. Currently on vancomycin and aztreonam in a patient who is ALLERGIC TO PENICILLIN AND SULFA. We will follow closely with you. James Latif MD
[2017-07-27] MEDS: Aztreonam 1 Gm in NS 100mL 100 ML IVPB SCH ×3 (01:16→16:12)
[2017-07-27] MEDS: Vancomycin 1gm in NS 250ml 1 GM/250 ML BAG IVPB SCH ×2 (02:30→14:05)
[2017-07-27] MEDS ORDERED: AMPHETAMINE PO SCH ×2 (07:00)
[2017-07-27] MEDS ORDERED: DEXTROAMPHETAMINE PO SCH ×2 (07:00)
[2017-07-27 07:04] LABS: ALBUMIN (PEP) 1.4 g/dL (3.8-4.8); ALPHA-1-GLOBULIN (PEP) 0.4 g/dL (0.2-0.3)
[2017-07-27 08:12] LABS: BASO # 0.01 K/mm3 (0.0-2.0); BASO % 0.3 % (0.0-3.0); EOS % 0.5 % (1.5-5.0); GRAN # 2.57 (1.4-6.5); GRAN % 64.4 % (50.0-68.0); LYMPH % 23.8 % (22.0-35.0); MEAN CELL VOLUME 93.2 fl (80.0-105.0); MEAN CORPUSCULAR HEMOGLOBIN 31.3 pg (25.0-35.0); MEAN CORPUSCULAR HGB CONC 33.5 g/dl (31.0-37.0); MEAN PLATELET VOLUME 8.6 fl (7.0-11.0); MONO # 0.4 (0.1-0.6); RBC 3.52 10^6/uL (3.5-6.1); RED CELL DISTRIBUTION WIDTH 17.7 % (11.5-14.5)
[2017-07-27 08:29] LABS: ALB/GLOB RATIO 0.6 (1.1-1.8); ALBUMIN 1.6 g/dL (3.0-4.8); ALT/SGPT 48 U/L (7-56); AST/SGOT 31 U/L (14-36); BLOOD UREA NITROGEN 17 mg/dL (7-21); CALCIUM 7.3 mg/dL (8.4-10.5); GFR AFRICAN-AMERICAN > 60; GFR NON-AFRICAN AMERICAN > 60
[2017-07-27] MEDS: POLYETHYLENE GLYCOL 3350 17 GM/Dose PACKET PO SCH (09:35)
[2017-07-27] MEDS: oxyCODONE 10 mg ER Tab (oxyCONTIN) PO SCH (09:35)
[2017-07-27] MEDS: Potassium Chloride 10 mEq ER Tab PO SCH (09:35)
[2017-07-27] MEDS: Lactobacillus Acidophilus 500 MU Cap PO SCH (09:35)
[2017-07-27] MEDS: BIOTIN 10000 MCG PO SCH ×2 (09:36→10:03)
[2017-07-27] MEDS: Hydrocerin(120 gm) TOP SCH ×2 (09:38→18:08)
--- NOTE | 2017-07-27 10:43 | CP.PCM.PN ---
<DameonHeena - Last Filed: 07/27/17 10:44> Subjective - Date & Time of Evaluation Date of Evaluation: 07/27/17 Time of Evaluation: 10:43 - Subjective Subjective: 62 year old female seen at bedside with attending Dr. Puckett for bilateral superficial weeping ulcerations with bilateral lower leg cellulitis. She states that overnight the right leg wounds were weeping through the dressing at the top , and were reinforced with abdominal pads. Admits to having moderate pain when anything touches the right leg. Denies pain in the left leg with the exception of the wound on the outside of the leg, where she previously had bumped it. Pt has no acute overnight events. Denies F/C/N/V/CP/SOB Objective - Vital Signs/Intake and Output Vital Signs (last 24 hours): Temp Pulse Resp BP Pulse Ox 97.3 F L 63 18 115/76 98 07/26/17 23:24 07/26/17 23:24 07/26/17 23:24 07/26/17 23:24 07/26/17 16:00 Intake and Output: 07/27/17 07/27/17 06:59 18:59 Intake Total 1068 120 Balance 1068 120 - Medications Medications: Current Medications Acetaminophen (Tylenol 325mg Tab) 650 mg PO Q4H PRN PRN Reason: Other Last Admin: 07/26/17 16:46 Dose: 650 mg Buspirone HCl (Buspar) 5 mg PO BID [facility] PRN Reason: Protocol Last Admin: 07/27/17 09:36 Dose: Not Given Citalopram Hydrobromide (Celexa) 20 mg PO DIN [facility] Last Admin: 07/26/17 17:08 Dose: 20 mg Furosemide (Lasix) 40 mg IVP DAILY [facility] Last Admin: 07/27/17 09:34 Dose: Not Given Home Med (Home Med) 1 unit PO DAILY [facility] Last Admin: 07/27/17 10:03 Dose: 1 unit Home Med (Home Med) 1 unit PO 0700 [facility] Last Admin: 07/27/17 08:00 Dose: 1 unit Aztreonam (Azactam 1 Gm) 100 mls @ 100 mls/hr IVPB Q8 [facility] PRN Reason: Protocol Stop: 08/01/17 14:01 Last Admin: 01/31/18 07:01 Dose: 100 mls/hr Vancomycin HCl (Vancomycin 1gm) 1 gm in 250 mls @ 167 mls/hr IVPB Q12H [facility] PRN Reason: Protocol Last Admin: 07/27/17 02:30 Dose: 167 mls/hr Lactobacillus Acidophilus (Bacid Acidophilus) 2 cap PO DAILY [facility] Last Admin: 07/27/17 09:35 Dose: 2 cap Multi-Ingredient Cream (Hydrocerin Cream) 0 ea TOP BID [facility] Last Admin: 07/27/17 09:38 Dose: 1 appful Mupirocin (Bactroban Ointment) 0 gm TOP BID [facility] Last Admin: 07/26/17 17:46 Dose: Not Given Ondansetron HCl (Zofran Inj) 4 mg IVP Q6H PRN PRN Reason: Nausea/Vomiting Last Admin: 07/25/17 22:37 Dose: 4 mg Oxycodone HCl (Oxycontin Extended Release Tab) 30 mg PO Q12 [facility] Last Admin: 07/27/17 09:35 Dose: 30 mg Polyethylene Glycol (Miralax) 17 gm PO QWK [facility] Last Admin: 07/22/17 10:31 Dose: 17 gm Polyethylene Glycol (Miralax) 17 gm PO DAILY [facility] Last Admin: 07/27/17 09:35 Dose: Not Given Potassium Chloride (Klor-Con 10) 10 meq PO DAILY [facility] Last Admin: 07/27/17 09:35 Dose: 10 meq Tramadol HCl (Ultram) 50 mg PO Q6 PRN PRN Reason: Pain, moderate (4-7) Last Admin: 07/27/17 08:00 Dose: 50 mg - Labs Labs: 07/27/17 08:00 07/27/17 08:00 - Constitutional Appears: Well, Non-toxic, No Acute Distress - Extremities Exam Additional comments: Bilateral Lower extremity focused examination: Dressings clean dry and intact with minimal strikethrough noted to proximal aspect of R leg dressing Vasc: DP/PT pulses faintly palpable 1/4 B/L. CFT < 3 seconds to all digits. Temperature runs warm to cool proximal to distal, within normal limits. +2 pitting edema noted bilaterally, improving since admission Derm: Distal 2/3 of legs and heels bilaterally tender to palpation with localized erythema, R worse than L in intensity. Diffuse circumferential pustules noted to bilateral lower legs, left greater than right. Single heel fissures noted to R heel. Plantar xerosis noted to bilateral feet with stage 1 erythematous pressure ulceration noted to R heel. Lateral aspect of left leg exhibits superficial ulceration with mixed fibrogranular base - no malodor, fluctuance, tunneling, purulence, undermining or active drainage. Neuro: Diminished protective sensation bilaterally. Ortho: Lower leg and pedal muscle strength is graded 5/5. No limitation to range of motion. - Neurological Exam Neurological Exam: Alert, Awake, Oriented x3 - Psychiatric Exam Psychiatric exam: Normal Affect, Normal Mood Assessment and Plan - Assessment and Plan (Free Text) Assessment: Assessment: 62 year old female with bilateral cellulitis and pustules with lateral left leg superficial ulceration Plan: Pt seen and evaluated at bedside with attending Dr. Puckett Chart, labs, and vitals reviewed. WBC 4.0, afebrile Wound culture of L leg positive for Klebsiella, MRSA Continue Aztreonam, Vancomycin as per ID Venous duplex (-) for DVT Arterial doppler studies - normal DANIEL/PVR values at rest Cleansed lower legs with sterile saline and dressed with bactroban, adaptic, and DSD Hydrocerin cream applied to bilateral plantar feet and heels Offloading boots ordered, to be worn at all times in bed Rx Topicort for bilateral leg cellulitic and erythematous changes Podiatry will continue to follow patient while in house <Valerie Puckett - Last Filed: 08/03/17 08:01> Objective - Vital Signs/Intake and Output Vital Signs (last 24 hours): Temp Pulse Resp BP Pulse Ox 97.6 F 79 20 107/75 97 07/27/17 16:30 07/27/17 16:30 07/27/17 16:30 07/27/17 16:30 07/27/17 16:30 - Labs Labs: 07/27/17 08:00 07/27/17 08:00 Attending/Attestation - Attestation I have personally seen and examined this patient.: Yes I have fully participated in the care of the patient.: Yes I have reviewed all pertinent clinical information, including history, physical exam and plan: Yes
[2017-07-27 11:27] VITALS: RESP 20; O2SAT 97
--- NOTE | 2017-07-27 13:43 | PN ---
DATE: 07/27/2017 SUBJECTIVE: The patient is sitting up in bed, eating. Denies any new complaints, but very fatigued. She has lost a significant amount of weight since the last visit. Has not been able to follow up in the office as well. PHYSICAL EXAMINATION: GENERAL: The patient is an elderly pleasant female, cachectic appearing with bitemporal wasting, sitting up in bed, in no acute distress. VITAL SIGNS: Revealed a temperature of 97.3, pulse of 63, respiratory rate of 18, and blood pressure of 115/76. HEENT: Normocephalic, atraumatic. Eyes: Pupils equal, round, and reactive to light and accommodation. Extraocular muscles are intact. There is pallor. No icterus is noted. NECK: Supple with no adenopathy, no JVD, no thyromegaly. LUNGS: Decreased breath sounds bilaterally with no rales or rhonchi. CARDIOVASCULAR: S1 and S2 heard. ABDOMEN: Positive bowel sounds, soft, nontender, nondistended. No organomegaly is palpated. EXTREMITIES: There is no edema, clubbing, or cyanosis. LABORATORY DATA: Her white count is 4.0; hemoglobin is 11.0 post PRBC transfusion, hemoglobin was 8.0 prior to transfusion; her platelet count is 185. Chemistries are within normal limits. Known iron deficiency from prior. No iron studies on this admission and she does have M spike IgG kappa and lambda that are present in her serum protein electrophoresis. ASSESSMENT AND PLAN: Elderly female with significant weight loss and cachexia and progressive anemia. She also recently had renal calculi and multiple complications secondary to that. Continue oral iron at this point, status post packed red blood cells transfusion, significant improvement in hemoglobin. She is to follow up with me as an outpatient to continue IV iron supplement as well as a workup for her positive immunofixation. Thank you for the consult. We will follow. Madelin Guo MD [facility]
[2017-07-27] MEDS ORDERED: BIOTIN 10000 MCG PO SCH (18:00)
[2017-07-27] MEDS ORDERED: DESOXIMETASONE 0.25% TOP SCH (18:00)
[2017-07-27 18:27] VITALS: BP 107/75; PULSE 79; TEMP 97.6
--- NOTE | 2017-07-27 23:18 | PN ---
DATE: 07/27/2017 SUBJECTIVE: The patient is seen early this morning in room 369, bed 2. She states she is feeling better. She has slightly better appetite, but still poor appetite and no fevers, less short of breath. PHYSICAL EXAMINATION VITAL SIGNS: Temperature is 97, blood pressure is 107/70, respiratory rate of 20 and heart rate of 80. HEENT: Unremarkable. NECK: Supple. LUNGS: Have decreased breath sounds. HEART: Normal S1 and S2. ABDOMEN: Soft. LABORATORY DATA: Reveals a white count of 4,000, hemoglobin of 11 and platelets of 185. Chemistry reveals a BUN of 17 and creatinine of 0.7. Urinalysis is noted and microbiology is noted. Left leg culture is Klebsiella pneumonia and MRSA. Klebsiella is pansensitive. MRSA, MAURIZIO of vancomycin is 1. ASSESSMENT AND PLAN: A 62-year-old female, who was seen early this morning, chronically ill, cachectic appearing with chronic anemia, hypertension, multiple sclerosis, sarcoidosis, pancreatitis, left ureteral stent, who is admitted with soft skin and soft tissue infection with methicillin-resistant Staphylococcus aureus and Klebsiella, on vancomycin and aztreonam because of PENICILLIN ALLERGY and SULFA ALLERGY, limited options. We will order vancomycin level. The patient is scheduled to get vancomycin at 12:15 after midnight. We will order vancomycin trough level at 11:15 in the morning afternoon dose. James Latif MD
--- NOTE | 2017-07-28 07:11 | DS ---
HISTORY OF PRESENT ILLNESS: The patient is a 62-year-old, seen and examined, seems to be doing well after she got blood transfusion. Still complaining about having constipation and wants to make some changes biotin, otherwise doing well. PHYSICAL EXAMINATION: VITAL SIGNS: She is afebrile, pulse 79, respirations 20, blood pressure 107/75. LUNGS: Bilateral fair airflow. No rhonchi or crackles. HEART: S1 and S2 audible. ABDOMEN: Soft. Nontender. No rebound. No guarding. NEUROLOGIC: The patient is awake and alert, able to communicate. EXTREMITIES: Bilateral leg +2 edema and her bilateral feet have dressings done by Dr. Puckett. LABORATORY EXAM: WBC is 4.0, hemoglobin 11, hematocrit 32, and platelets of 185. Chemistry, sodium 136, potassium 5.0, chloride 107, CO2 of 29, BUN 17, creatinine 0.7, blood sugar of 66, albumin is 1.6. ASSESSMENT: 1. Bilateral leg edema, improving. 2. Hypoalbuminemia. 3. Anemia. 4. Chronic pain syndrome. 5. Multiple sclerosis. 6. Recent left ureteral stent placement, but it was removed later on, no more episode of hematuria noted. PLAN: The patient is clinically stable. She needs wound care and IV antibiotics for her foot ulcer, so she is being transferred to TCU today for wound care and completion of course of antibiotic and physical therapy. Rad Onofre MD
--- NOTE | 2017-07-28 08:26 | RAD ---
PROCEDURE: Radiographs of the Left Shoulder HISTORY: Lt shoulder blade pain (posterior) COMPARISON: No prior. FINDINGS: BONES: Normal. No fracture. JOINTS: Unremarkable glenohumeral articulation. Limited evaluation of glenohumeral articulation. Mild acromioclavicular degenerative arthritis noted. SOFT TISSUES: Normal. OTHER FINDINGS: None. IMPRESSION: Acromioclavicular degenerative arthritis.
== END 2017-07-27 19:21 | DRG 603 ==
LOC: ED 00:33 → ERH 03:12 → 3RNO 04:13 → OBSVTOIN 07-24 15:51
PROVIDERS: ADMIT Internal Medicine; ATTEND Internal Medicine
PROC: 30233N1 Transfusion of Nonautologous Red Blood Cells into Peripheral Vein, Percutaneous Approach (ICD-10-PCS; principal; 2017-07-26)
DX: L03.115 Cellulitis of right lower limb (principal); R64 Cachexia; E46 Unspecified protein-calorie malnutrition; E77.8 Other disorders of glycoprotein metabolism; E88.09 Other disorders of plasma-protein metabolism, not elsewhere classified; L03.116 Cellulitis of left lower limb; L97.529 Non-pressure chronic ulcer of other part of left foot with unspecified severity; G89.4 Chronic pain syndrome; L97.519 Non-pressure chronic ulcer of other part of right foot with unspecified severity; G35 Multiple sclerosis; E86.0 Dehydration; D86.9 Sarcoidosis, unspecified; N18.9 Chronic kidney disease, unspecified; I12.9 Hypertensive chronic kidney disease with stage 1 through stage 4 chronic kidney disease, or unspecified chronic kidney disease; D50.9 Iron deficiency anemia, unspecified; B95.62 Methicillin resistant Staphylococcus aureus infection as the cause of diseases classified elsewhere; B96.1 Klebsiella pneumoniae [K. pneumoniae] as the cause of diseases classified elsewhere; K59.03 Drug induced constipation; T40.605A Adverse effect of unspecified narcotics, initial encounter; L89.611 Pressure ulcer of right heel, stage 1; Z88.2 Allergy status to sulfonamides; Z87.442 Personal history of urinary calculi; Z68.20 Body mass index [BMI] 20.0-20.9, adult; Z87.891 Personal history of nicotine dependence; Z88.0 Allergy status to penicillin

== ENCOUNTER 2017-07-27 19:24 | Inpatient (IN) | payer OTHER ==
[2017-07-27 20:07] VITALS: BMI 20.9
[2017-07-27] MEDS ORDERED: oxyCODONE 10 mg ER Tab (oxyCONTIN) PO SCH (22:00)
[2017-07-27] MEDS ORDERED: Aztreonam 1 Gm in NS 100mL 100 ML IVPB SCH (22:00)
[2017-07-28] MEDS: Aztreonam 1 Gm in NS 100mL 100 ML IV SCH ×3 (05:20→22:10)
[2017-07-28] MEDS: Vancomycin 1gm in NS 250ml 1 GM/250 ML BAG IVPB SCH ×2 (05:21→19:00)
[2017-07-28] MEDS: oxyCODONE 10 mg ER Tab (oxyCONTIN) PO SCH ×3 (05:30→18:20)
[2017-07-28] MEDS: DEXTROAMPHETAMINE PO SCH (07:42)
[2017-07-28] MEDS: AMPHETAMINE PO SCH (07:42)
[2017-07-28] MEDS: Potassium Chloride 10 mEq ER Tab PO SCH (08:32)
[2017-07-28] MEDS ORDERED: DEXTROAMPHETAMINE PO SCH (10:00)
[2017-07-28] MEDS ORDERED: AMPHETAMINE PO SCH (10:00)
[2017-07-28] MEDS ORDERED: Home Med 1 UNIT PO SCH (10:00)
[2017-07-28] MEDS: Hydrocerin(120 gm) TOP SCH ×2 (11:00→18:20)
[2017-07-28] MEDS: Lactobacillus Acidophilus 500 MU Cap PO SCH (11:00)
[2017-07-28] MEDS: BIOTIN 10000 MCG PO SCH ×2 (11:00→18:20)
[2017-07-28] MEDS: Desoximetasone 0.25% Cream(15 gm) TOP SCH ×2 (11:00→18:21)
[2017-07-28] MEDS: POLYETHYLENE GLYCOL 3350 17 GM/Dose PACKET PO SCH (11:00)
--- NOTE | 2017-07-28 16:47 | CP.PCM.CON ---
History of Present Illness - History of Present Illness History of Present Illness: 62 year old female with PMH of chronic anemia, HTN, multiple sclerosis, sarcoidosis, history of pancreatitis, S/P left ureteral stent was initially admitted in [facility] because of lower extremity swelling and she was being treated for cellulitis. She was doing well on antibiotics and is now transferred to [facility] for continued medical therapy and physical rehab. Infectious Diseases consult is requested to continue her antibiotic therapy. Currently she feels that the legs are feeling better. She denies fever or chills, no nausea or vomiting, no chest pain, no SOB, no headache or dizziness, no abdominal pain, no diarrhea, on dysuria. Review of Systems - Review of Systems All systems: reviewed and no additional remarkable complaints except (as per HPI ) Past Patient History - Infectious Disease Hx of Infectious Diseases: None - Past Social History Smoking Status: Former Smoker - CARDIAC Hx Pacemaker: No - PULMONARY Hx Respiratory Disorders: Yes (SMOKED CIGARETTES QUIT 40 YRS. PPD) - NEUROLOGICAL Hx Neurological Disorder: Yes Hx Multiple Sclerosis: Yes - HEENT Hx HEENT Problems: Yes Other/Comment: 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 - RENAL Hx Chronic Kidney Disease: Yes (L KIDNEY CYST,H/O LITHOTRYPSIES) Hx Kidney Stones: Yes - ENDOCRINE/METABOLIC Hx Endocrine Disorders: No Hx Hyperthyroidism: Yes - HEMATOLOGICAL/ONCOLOGICAL Hx Cancer: No - INTEGUMENTARY Hx Dermatological Problems: Yes Other/Comment: 06-09-17 BILATERAL LE GROSS EDEMA,PITTING +4.THICK TO HIN FLAKY SKIN. HAS ANASARCA. EDEMA TO LEFT ARM WITH SOME BRUISED AREA. - MUSCULOSKELETAL/RHEUMATOLOGICAL Hx Falls: Yes - GASTROINTESTINAL Hx Gastrointestinal Disorders: Yes - GENITOURINARY/GYNECOLOGICAL Hx Genitourinary Disorders: Yes (nephrolithiasis) Hx Reproductive Disorders: No - PSYCHIATRIC Hx Emotional Abuse: No Hx Physical Abuse: No Hx Substance Use: No - SURGICAL HISTORY Hx Mastectomy: No - ANESTHESIA Hx Anesthesia Reactions: No Hx Malignant Hyperthermia: No Meds Allergies/Adverse Reactions: Allergies Allergy/AdvReac Type Severity Reaction Status Date / Time black pepper Allergy ITCHING Verified 07/27/17 20:05 codeine Allergy NAUSEA Verified 07/27/17 20:05 Penicillins Allergy SWELLING Verified 07/27/17 20:05 Sulfa (Sulfonamide Allergy RASH Verified 07/27/17 20:05 Antibiotics) - Medications Medications: Current Medications Acetaminophen (Tylenol 325mg Tab) 650 mg PO Q4H PRN; Protocol PRN Reason: pain/fever Buspirone HCl (Buspar) 5 mg PO DAILY JENNY PRN Reason: Protocol Citalopram Hydrobromide (Celexa) 20 mg PO ACD JENNY PRN Reason: Protocol Desoximetasone (Topicort 0.25%) 0 ea TOP BID JENNY PRN Reason: Protocol Furosemide (Lasix) 20 mg IVP DAILY [facility]ENNY PRN Reason: Protocol Home Med (Home Med) 1 unit PO 0700 [facility] Last Admin: 07/28/17 07:42 Dose: 1 unit Home Med (Home Med) 1 unit PO BID JENNY Vancomycin HCl (Vancomycin 1gm) 1 gm in 250 mls @ 167 mls/hr IVPB 0600,1800 [facility]ENNY PRN Reason: Protocol Last Admin: 07/28/17 05:21 Dose: 167 mls/hr Aztreonam (Azactam 1 Gm) 100 mls @ 100 mls/hr IV Q8 JENNY PRN Reason: Protocol Stop: 08/06/17 06:01 Last Admin: 07/28/17 05:20 Dose: 100 mls/hr Lactobacillus Acidophilus (Bacid Acidophilus) 2 cap PO DAILY JENNY PRN Reason: Protocol Multi-Ingredient Cream (Hydrocerin Cream) 0 ea TOP BID [facility]ENNY PRN Reason: Protocol Mupirocin (Bactroban Ointment) 0 gm TOP BID JENNY PRN Reason: Protocol Ondansetron HCl (Zofran Inj) 4 mg IVP Q6H PRN; Protocol PRN Reason: Nausea/Vomiting Oxycodone HCl (Oxycontin Extended Release Tab) 30 mg PO 0600,1800 [facility]ENNY PRN Reason: Protocol Stop: 07/31/17 06:01 Last Admin: 07/28/17 05:30 Dose: 30 mg Polyethylene Glycol (Miralax) 17 gm PO DAILY JENNY PRN Reason: Protocol Potassium Chloride (Klor-Con 10) 10 meq PO BRK JENNY Tramadol HCl (Ultram) 50 mg PO 0000,0600,1200,1800 [facility] PRN Reason: Protocol Physical Exam - Constitutional Appears: Non-toxic - Head Exam Head Exam: NORMAL INSPECTION - ENT Exam ENT Exam: Mucous Membranes Moist - Neck Exam Neck exam: Negative for: Meningismus - Respiratory Exam Respiratory Exam: Decreased Breath Sounds - Cardiovascular Exam Cardiovascular Exam: +S1, +S2 - GI/Abdominal Exam GI & Abdominal Exam: Soft. absent: Tenderness - Extremities Exam Additional comments: both legs with dressings in place Results - Vital Signs Recent Vital Signs: Last Vital Signs Temp 98.2 F 07/27/17 22:36 Pulse 80 07/27/17 22:36 Resp 20 07/27/17 22:36 BP 108/76 07/27/17 22:36 Pulse Ox Assessment & Plan - Assessment and Plan (Free Text) Plan: Assessment bilateral lower extremity skin and skin structure infection with MRSA and Klebsiella chronic anemia HTN multiple sclerosis sarcoidosis history of pancreatitis S/P left ureteral stent Plan continue Vanco and Aztreonam day 4 and will continue to monitor clinically
--- NOTE | 2017-07-29 01:24 | HP ---
HISTORY OF PRESENT ILLNESS: Patient is a 62-year-old, who came to emergency room because of increasing leg swelling and had fluid coming out of it, complaining of generalized weakness, feeling weak, tired, short of breath, so she came to ER for further evaluation. She was found to have bilateral leg cellulitis, has been diuresed, has been on antibiotic and Podiatry consult was done, and her leg wounds are being cared for and being transferred to TCU for further management. PAST MEDICAL HISTORY: She has significant past medical history of; 1. Chronic anemia. 2. Sarcoidosis. 3. Multiple sclerosis. 4. Hypertension. 5. History of left nephrolithiasis, had lithotripsy done followed by multiple episodes of ureteral stent placement; finally it came out, and since then, she has been passing gravel and had been relieved with no evidence of hematuria anymore. ALLERGIES: SHE IS ALLERGIC TO BLACK PEPPER, CODEINE, PENICILLIN AND SULFA. MEDICATIONS: At home, she is on Mobic 7.5 daily, Claritin 10 mg daily, gabapentin. She is on Adderall, Celexa 20 mg daily, vitamin D, Biotin, oxycodone, BuSpar, furosemide, potassium and MiraLax as needed. SOCIAL HISTORY: She lives with her son. Denies smoking, used to be a smoker in the past. PHYSICAL EXAMINATION GENERAL: She is awake, alert, oriented, able to communicate. VITAL SIGNS: She is afebrile, pulse 77, respiration 20, blood pressure 105/73. LUNGS: Bilateral fair airflow. No rhonchi or crackle. HEART: S1 and S2 audible. ABDOMEN: Soft, nontender. EXTREMITIES: Bilateral legs +1 edema with erythema. Her leg wounds are dressed. LABORATORY DATA: Her vancomycin level is 14.7. ASSESSMENT: 1. Bilateral leg cellulitis, resolving. 2. Bilateral leg edema. 3. History of depression. 4. Anemia. 5. Multiple sclerosis. 6. History of sarcoidosis. PLAN: Currently patient is on vancomycin. She is getting diuretics 20 mg daily. We will monitor her electrolytes. We will follow up in the a.m. Continue physical therapy. Rad Onofre MD
[2017-07-29] MEDS: Aztreonam 1 Gm in NS 100mL 100 ML IV SCH ×3 (05:04→22:27)
[2017-07-29] MEDS: oxyCODONE 10 mg ER Tab (oxyCONTIN) PO SCH ×2 (05:04→18:09)
[2017-07-29] MEDS: Vancomycin 1gm in NS 250ml 1 GM/250 ML BAG IVPB SCH ×2 (05:07→18:06)
[2017-07-29] MEDS: DEXTROAMPHETAMINE PO SCH (06:27)
[2017-07-29] MEDS: AMPHETAMINE PO SCH (06:27)
[2017-07-29 07:15] LABS: BASO # 0.01 K/mm3 (0.0-2.0); BASO % 0.3 % (0.0-3.0); EOS % 0.3 % (1.5-5.0); GRAN # 2.45 (1.4-6.5); GRAN % 67.1 % (50.0-68.0); HEMOGLOBIN 10.2 g/dL (12.0-16.0); LYMPH # 0.9 (1.2-3.4); LYMPH % 23.3 % (22.0-35.0); MEAN CELL VOLUME 94.5 fl (80.0-105.0); MEAN CORPUSCULAR HEMOGLOBIN 31.3 pg (25.0-35.0); MEAN CORPUSCULAR HGB CONC 33.1 g/dl (31.0-37.0); MONO # 0.3 (0.1-0.6); RBC 3.26 10^6/uL (3.5-6.1); RED CELL DISTRIBUTION WIDTH 17.4 % (11.5-14.5); WHITE BLOOD COUNT 3.7 10^3/ul (4.5-11.0)
[2017-07-29 07:51] LABS: ALB/GLOB RATIO 0.6 (1.1-1.8); ALBUMIN 1.5 g/dL (3.0-4.8); ALT/SGPT 39 U/L (7-56); AST/SGOT 32 U/L (14-36); BLOOD UREA NITROGEN 19 mg/dL (7-21); CALCIUM 7.2 mg/dL (8.4-10.5); GFR AFRICAN-AMERICAN > 60; GFR NON-AFRICAN AMERICAN > 60
[2017-07-29] MEDS: Potassium Chloride 10 mEq ER Tab PO SCH (08:44)
[2017-07-29] MEDS ORDERED: POLYETHYLENE GLYCOL 3350 17 GM/Dose PACKET PO SCH (10:00)
[2017-07-29] MEDS: BIOTIN 10000 MCG PO SCH ×2 (10:45→18:11)
[2017-07-29] MEDS: POLYETHYLENE GLYCOL 3350 17 GM/Dose PACKET PO SCH (10:45)
[2017-07-29] MEDS: Lactobacillus Acidophilus 500 MU Cap PO SCH (10:45)
[2017-07-29] MEDS: Desoximetasone 0.25% Cream(15 gm) TOP SCH ×2 (10:45→18:11)
[2017-07-29] MEDS: Hydrocerin(120 gm) TOP SCH ×2 (11:29→18:11)
--- NOTE | 2017-07-29 14:48 | PN ---
DATE: SUBJECTIVE: The patient is 62-year-old, seen and examined, doing a little better, complaining of stuffy nose and ears feeling clogged. PHYSICAL EXAMINATION: VITAL SIGNS: She is afebrile, pulse 79, respirations 20, blood pressure 110/70. LUNGS: Bilateral fair air flow. No rhonchi or crackles. HEART: S1 and S2 audible. ABDOMEN: Soft, nontender. No rebound. No guarding. NEUROLOGICAL: The patient is awake and alert, able to communicate. EXTREMITIES: Bilateral legs, +2 edema. Both legs and feet are wrapped. LABORATORY DATA: WBC 3.7, hemoglobin 10.2, hematocrit 30.8, platelet of 195. Chemistries: Sodium 132, potassium 4.1, chloride 108, CO2 of 25, BUN 19, creatinine 0.6, blood sugar of 94. Albumin of 1.5. ASSESSMENT: 1. Bilateral edema. 2. Hypoalbuminemia. 3. Chronic anemia. 4. Multiple sclerosis. 5. Sarcoidosis. 6. Bilateral leg ulcers. 7. Deconditioning and difficulty walking. 8. Leg cellulitis. PLAN: Currently, the patient is on Azactam, we will continue that. Analgesics as needed. Laxative as needed. Follow up her electrolytes intermittently. Rad Onofre MD
--- NOTE | 2017-07-29 15:34 | CP.PCM.PN ---
Subjective - Date & Time of Evaluation Date of Evaluation: 07/29/17 Time of Evaluation: 12:15 - Subjective Subjective: Not in distress, no fevers. Objective - Vital Signs/Intake and Output Vital Signs (last 24 hours): Temp Pulse Resp BP Pulse Ox 97.6 F 77 20 105/73 90 L 07/28/17 15:43 07/28/17 15:43 07/28/17 15:43 07/28/17 15:43 07/28/17 15:43 - Medications Medications: Current Medications Acetaminophen (Tylenol 325mg Tab) 650 mg PO Q4H PRN; Protocol PRN Reason: pain/fever Buspirone HCl (Buspar) 5 mg PO HS JENNY PRN Reason: Protocol Citalopram Hydrobromide (Celexa) 20 mg PO DAILY [facility] Last Admin: 07/28/17 22:11 Dose: 20 mg Desoximetasone (Topicort 0.25%) 0 ea TOP BID JENNY PRN Reason: Protocol Last Admin: 07/28/17 18:21 Dose: Not Given Furosemide (Lasix) 20 mg IVP DAILY JENNY PRN Reason: Protocol Last Admin: 07/28/17 11:00 Dose: 20 mg Home Med (Home Med) 1 unit PO 0700 [facility] Last Admin: 07/29/17 06:27 Dose: 1 unit Home Med (Home Med) 1 unit PO BID [facility] Last Admin: 07/28/17 18:20 Dose: Not Given Vancomycin HCl (Vancomycin 1gm) 1 gm in 250 mls @ 167 mls/hr IVPB 0600,1800 JENNY PRN Reason: Protocol Last Admin: 07/29/17 05:07 Dose: 167 mls/hr Aztreonam (Azactam 1 Gm) 100 mls @ 100 mls/hr IV Q8 JENNY PRN Reason: Protocol Stop: 08/06/17 06:01 Last Admin: 07/29/17 05:04 Dose: 100 mls/hr Lactobacillus Acidophilus (Bacid Acidophilus) 2 cap PO DAILY JENNY PRN Reason: Protocol Last Admin: 07/28/17 11:00 Dose: 2 cap Multi-Ingredient Cream (Hydrocerin Cream) 0 ea TOP BID JENNY PRN Reason: Protocol Last Admin: 07/28/17 18:20 Dose: Not Given Mupirocin (Bactroban Ointment) 0 gm TOP BID JENNY PRN Reason: Protocol Last Admin: 07/28/17 18:20 Dose: Not Given Ondansetron HCl (Zofran Inj) 4 mg IVP Q6H PRN; Protocol PRN Reason: Nausea/Vomiting Oxycodone HCl (Oxycontin Extended Release Tab) 30 mg PO 0600,1800 JENNY PRN Reason: Protocol Stop: 07/31/17 06:01 Last Admin: 07/29/17 05:04 Dose: 30 mg Polyethylene Glycol (Miralax) 17 gm PO DAILY JENNY PRN Reason: Protocol Last Admin: 07/28/17 11:00 Dose: 17 gm Potassium Chloride (Klor-Con 10) 10 meq PO BRK [facility] Last Admin: 07/29/17 08:44 Dose: 10 meq Tramadol HCl (Ultram) 50 mg PO 0000,0600,1200,1800 [facility] PRN Reason: Protocol Last Admin: 07/28/17 19:59 Dose: Not Given - Labs Labs: 07/29/17 06:45 07/29/17 06:45 - Constitutional Appears: Non-toxic, Chronically Ill - Head Exam Head Exam: NORMAL INSPECTION - Respiratory Exam Respiratory Exam: Decreased Breath Sounds - Cardiovascular Exam Cardiovascular Exam: +S1, +S2 - GI/Abdominal Exam GI & Abdominal Exam: Soft. absent: Tenderness Assessment and Plan - Assessment and Plan (Free Text) Plan: Assessment bilateral lower extremity skin and skin structure infection with MRSA and Klebsiella chronic anemia HTN multiple sclerosis sarcoidosis history of pancreatitis S/P left ureteral stent Plan continue Vanco and Aztreonam day 5 to complete 7-10 days will continue to monitor clinically
--- NOTE | 2017-07-29 17:28 | CP.PCM.CON ---
<Myriam Borgse - Last Filed: 07/29/17 17:25> History of Present Illness - History of Present Illness History of Present Illness: 62 year old female seen at bedside for bilateral superficial weeping ulcerations with bilateral lower leg cellulitis. Patient is AAOx3 and is in NAD. Patient reports that her legs were wheeping and her bed got little wet yesterday overnight. Admits to having moderate pain when anything touches the right leg. Denies of acute overnight events. Denies F/C/N/V/CP/SOB Review of Systems - Constitutional Constitutional: As Per HPI Past Patient History - Infectious Disease Hx of Infectious Diseases: None - Past Social History Smoking Status: Former Smoker - CARDIAC Hx Pacemaker: No - PULMONARY Hx Respiratory Disorders: Yes (SMOKED CIGARETTES QUIT 40 YRS. PPD) - NEUROLOGICAL Hx Neurological Disorder: Yes Hx Multiple Sclerosis: Yes - HEENT Hx HEENT Problems: Yes Other/Comment: 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 - RENAL Hx Chronic Kidney Disease: Yes (L KIDNEY CYST,H/O LITHOTRYPSIES) Hx Kidney Stones: Yes - ENDOCRINE/METABOLIC Hx Endocrine Disorders: No Hx Hyperthyroidism: Yes - HEMATOLOGICAL/ONCOLOGICAL Hx Cancer: No - INTEGUMENTARY Hx Dermatological Problems: Yes Other/Comment: 06-09-17 BILATERAL LE GROSS EDEMA,PITTING +4.THICK TO HIN FLAKY SKIN. HAS ANASARCA. EDEMA TO LEFT ARM WITH SOME BRUISED AREA. - MUSCULOSKELETAL/RHEUMATOLOGICAL Hx Falls: Yes - GASTROINTESTINAL Hx Gastrointestinal Disorders: Yes - GENITOURINARY/GYNECOLOGICAL Hx Genitourinary Disorders: Yes (nephrolithiasis) Hx Reproductive Disorders: No - PSYCHIATRIC Hx Emotional Abuse: No Hx Physical Abuse: No Hx Substance Use: No - SURGICAL HISTORY Hx Mastectomy: No - ANESTHESIA Hx Anesthesia Reactions: No Hx Malignant Hyperthermia: No Meds Allergies/Adverse Reactions: Allergies Allergy/AdvReac Type Severity Reaction Status Date / Time black pepper Allergy ITCHING Verified 07/27/17 20:05 codeine Allergy NAUSEA Verified 07/27/17 20:05 Penicillins Allergy SWELLING Verified 07/27/17 20:05 Sulfa (Sulfonamide Allergy RASH Verified 07/27/17 20:05 Antibiotics) - Medications Medications: Current Medications Acetaminophen (Tylenol 325mg Tab) 650 mg PO Q4H PRN; Protocol PRN Reason: pain/fever Buspirone HCl (Buspar) 5 mg PO HS JENNY PRN Reason: Protocol Citalopram Hydrobromide (Celexa) 20 mg PO DAILY [facility] Last Admin: 07/29/17 11:30 Dose: Not Given Desoximetasone (Topicort 0.25%) 0 ea TOP BID JENNY PRN Reason: Protocol Last Admin: 07/29/17 10:45 Dose: 1 applic Furosemide (Lasix) 20 mg IVP DAILY JENNY PRN Reason: Protocol Last Admin: 07/29/17 10:45 Dose: 20 mg Home Med (Home Med) 1 unit PO 0700 [facility] Last Admin: 07/29/17 06:27 Dose: 1 unit Home Med (Home Med) 1 unit PO BID [facility] Last Admin: 07/29/17 10:45 Dose: 1 unit Vancomycin HCl (Vancomycin 1gm) 1 gm in 250 mls @ 167 mls/hr IVPB 0600,1800 [facility]NY PRN Reason: Protocol Last Admin: 07/29/17 05:07 Dose: 167 mls/hr Aztreonam (Azactam 1 Gm) 100 mls @ 100 mls/hr IV Q8 JENNY PRN Reason: Protocol Stop: 08/06/17 06:01 Last Admin: 07/29/17 13:38 Dose: 100 mls/hr Lactobacillus Acidophilus (Bacid Acidophilus) 2 cap PO DAILY [facility]ENNY PRN Reason: Protocol Last Admin: 07/29/17 10:45 Dose: 2 cap Multi-Ingredient Cream (Hydrocerin Cream) 0 ea TOP BID JENNY PRN Reason: Protocol Last Admin: 07/29/17 11:29 Dose: 1 applic Mupirocin (Bactroban Ointment) 0 gm TOP BID JENNY PRN Reason: Protocol Last Admin: 07/29/17 11:20 Dose: 1 applic Ondansetron HCl (Zofran Inj) 4 mg IVP Q6H PRN; Protocol PRN Reason: Nausea/Vomiting Oxycodone HCl (Oxycontin Extended Release Tab) 30 mg PO 0600,1800 [facility]ENNY PRN Reason: Protocol Stop: 07/31/17 06:01 Last Admin: 07/29/17 05:04 Dose: 30 mg Polyethylene Glycol (Miralax) 17 gm PO DAILY [facility]ENNY PRN Reason: Protocol Last Admin: 07/29/17 10:45 Dose: 17 gm Potassium Chloride (Klor-Con 10) 10 meq PO BRK [facility]ENNY Last Admin: 07/29/17 08:44 Dose: 10 meq Tramadol HCl (Ultram) 50 mg PO 0000,0600,1200,1800 [facility] PRN Reason: Protocol Last Admin: 07/29/17 12:58 Dose: 50 mg Physical Exam - Constitutional Appears: Well, Non-toxic, No Acute Distress - Extremities Exam Additional comments: Bilateral Lower extremity focused examination: Dressings clean dry and intact with minimal strikethrough noted to proximal aspect of R leg dressing Vasc: DP/PT pulses faintly palpable 1/4 B/L. CFT < 3 seconds to all digits. Temperature runs warm to cool proximal to distal, within normal limits. +2 pitting edema noted bilaterally, improving since admission Derm: Distal 2/3 of legs and heels bilaterally tender to palpation with localized erythema, R worse than L in intensity. Diffuse circumferential pustules noted to bilateral lower legs, left greater than right. Single heel fissures noted to R heel. Plantar xerosis noted to bilateral feet with stage 1 erythematous pressure ulceration noted to R heel. Lateral aspect of left leg exhibits superficial ulceration with mixed fibrogranular base - no malodor, fluctuance, tunneling, purulence, undermining or active drainage. Neuro: Diminished protective sensation bilaterally. Ortho: Lower leg and pedal muscle strength is graded 5/5. No limitation to range of motion. - Neurological Exam Neurological exam: Alert, Oriented x3 - Psychiatric Exam Psychiatric exam: Normal Affect, Normal Mood Results - Vital Signs Recent Vital Signs: Last Vital Signs Temp 97.5 F L 07/29/17 08:00 Pulse 79 07/29/17 08:00 Resp 20 07/29/17 08:00 BP 110/70 07/29/17 10:45 Pulse Ox 90 L 07/28/17 15:43 - Labs Result Diagrams: 07/29/17 06:45 07/29/17 06:45 Labs: Laboratory Results - last 24 hr 07/28/17 07/29/17 07/29/17 17:05 06:45 06:45 WBC 3.7 L RBC 3.26 L Hgb 10.2 L Hct 30.8 L MCV 94.5 MCH 31.3 MCHC 33.1 RDW 17.4 H Plt Count 195 MPV 9.0 Gran % 67.1 Lymph % (Auto) 23.3 Citrus % (Auto) 9.0 H Eos % (Auto) 0.3 L Baso % (Auto) 0.3 Gran # 2.45 Lymph # (Auto) 0.9 L Citrus # (Auto) 0.3 Eos # (Auto) 0.0 Baso # (Auto) 0.01 Sodium 132 Potassium 4.1 Chloride 108 H Carbon Dioxide 25 Anion Gap 3 L BUN 19 Creatinine 0.6 L Est GFR ( Amer) > 60 Est GFR (Non-Af Amer) > 60 Random Glucose 94 Calcium 7.2 L Total Bilirubin 0.2 AST 32 ALT 39 Alkaline Phosphatase 58 Total Protein 3.9 L Albumin 1.5 L Globulin 2.4 Albumin/Globulin Ratio 0.6 L Vancomycin Trough 14.7 H Assessment & Plan - Assessment and Plan (Free Text) Assessment: 62 year old female with bilateral cellulitis and pustules with lateral left leg superficial ulceration Plan: Pt seen and evaluated at bedside with attending Dr. Puckett Chart, labs, and vitals reviewed. WBC 3.7, afebrile Wound culture of L leg positive for Klebsiella, MRSA Continue Aztreonam, Vancomycin as per ID Venous duplex (-) for DVT Arterial doppler studies - normal DANIEL/PVR values at rest Cleansed lower legs with sterile saline and dressed with bactroban, adaptic, and DSD Hydrocerin cream applied to bilateral plantar feet and heels Offloading boots applied to LE, to be worn at all times in bed Podiatry will continue to follow patient while in house - Date & Time Date: 07/29/17 Time: 17:30 <Jose Guadalupe Martínez - Last Filed: 07/30/17 07:06> Meds - Medications Medications: Current Medications Acetaminophen (Tylenol 325mg Tab) 650 mg PO Q4H PRN; Protocol PRN Reason: pain/fever Buspirone HCl (Buspar) 5 mg PO HS JENNY PRN Reason: Protocol Last Admin: 07/29/17 22:27 Dose: 5 mg Citalopram Hydrobromide (Celexa) 20 mg PO DAILY [facility] Last Admin: 07/29/17 11:30 Dose: Not Given Desoximetasone (Topicort 0.25%) 0 ea TOP BID [facility]ENNY PRN Reason: Protocol Last Admin: 07/29/17 18:11 Dose: 1 applic Furosemide (Lasix) 20 mg IVP DAILY [facility] PRN Reason: Protocol Last Admin: 07/29/17 10:45 Dose: 20 mg Home Med (Home Med) 1 unit PO 0700 [facility] Last Admin: 07/29/17 06:27 Dose: 1 unit Home Med (Home Med) 1 unit PO BID [facility] Last Admin: 07/29/17 18:11 Dose: 1 unit Vancomycin HCl (Vancomycin 1gm) 1 gm in 250 mls @ 167 mls/hr IVPB 0600,1800 [facility] PRN Reason: Protocol Last Admin: 07/30/17 05:30 Dose: 167 mls/hr Aztreonam (Azactam 1 Gm) 100 mls @ 100 mls/hr IV Q8 [facility] PRN Reason: Protocol Stop: 08/06/17 06:01 Last Admin: 07/30/17 05:30 Dose: 100 mls/hr Lactobacillus Acidophilus (Bacid Acidophilus) 2 cap PO DAILY [facility] PRN Reason: Protocol Last Admin: 07/29/17 10:45 Dose: 2 cap Multi-Ingredient Cream (Hydrocerin Cream) 0 ea TOP BID [facility]ENNY PRN Reason: Protocol Last Admin: 07/29/17 18:11 Dose: Not Given Mupirocin (Bactroban Ointment) 0 gm TOP BID [facility]ENNY PRN Reason: Protocol Last Admin: 07/29/17 18:10 Dose: 1 applic Ondansetron HCl (Zofran Inj) 4 mg IVP Q6H PRN; Protocol PRN Reason: Nausea/Vomiting Oxycodone HCl (Oxycontin Extended Release Tab) 30 mg PO 0600,1800 [facility] PRN Reason: Protocol Stop: 07/31/17 06:01 Last Admin: 07/30/17 05:29 Dose: 30 mg Polyethylene Glycol (Miralax) 17 gm PO DAILY [facility] PRN Reason: Protocol Last Admin: 07/29/17 10:45 Dose: 17 gm Potassium Chloride (Klor-Con 10) 10 meq PO BRK [facility] Last Admin: 07/29/17 08:44 Dose: 10 meq Tramadol HCl (Ultram) 50 mg PO 0000,0600,1200,1800 [facility] PRN Reason: Protocol Last Admin: 07/30/17 05:28 Dose: 50 mg Results - Vital Signs Recent Vital Signs: Last Vital Signs Temp 98.8 F 07/29/17 10:00 Pulse 90 07/29/17 10:00 Resp 20 07/29/17 10:00 BP 110/70 07/29/17 10:45 Pulse Ox 90 L 07/28/17 15:43 - Labs Result Diagrams: 07/29/17 06:45 07/29/17 06:45 Labs: Laboratory Results - last 24 hr 07/29/17 07/29/17 06:45 06:45 WBC 3.7 L RBC 3.26 L Hgb 10.2 L Hct 30.8 L MCV 94.5 MCH 31.3 MCHC 33.1 RDW 17.4 H Plt Count 195 MPV 9.0 Gran % 67.1 Lymph % (Auto) 23.3 Citrus % (Auto) 9.0 H Eos % (Auto) 0.3 L Baso % (Auto) 0.3 Gran # 2.45 Lymph # (Auto) 0.9 L Citrus # (Auto) 0.3 Eos # (Auto) 0.0 Baso # (Auto) 0.01 Sodium 132 Potassium 4.1 Chloride 108 H Carbon Dioxide 25 Anion Gap 3 L BUN 19 Creatinine 0.6 L Est GFR ( Amer) > 60 Est GFR (Non-Af Amer) > 60 Random Glucose 94 Calcium 7.2 L Total Bilirubin 0.2 AST 32 ALT 39 Alkaline Phosphatase 58 Total Protein 3.9 L Albumin 1.5 L Globulin 2.4 Albumin/Globulin Ratio 0.6 L Attending/Attestation - Attestation I have personally seen and examined this patient.: Yes I have fully participated in the care of the patient.: Yes I have reviewed all pertinent clinical information: Yes
[2017-07-30] MEDS: oxyCODONE 10 mg ER Tab (oxyCONTIN) PO SCH ×2 (05:29→17:14)
[2017-07-30] MEDS: Aztreonam 1 Gm in NS 100mL 100 ML IV SCH ×3 (05:30→22:17)
[2017-07-30] MEDS: Vancomycin 1gm in NS 250ml 1 GM/250 ML BAG IVPB SCH ×2 (05:30→18:31)
[2017-07-30] MEDS: AMPHETAMINE PO SCH (07:07)
[2017-07-30] MEDS: DEXTROAMPHETAMINE PO SCH (07:07)
[2017-07-30] MEDS: Potassium Chloride 10 mEq ER Tab PO SCH (08:06)
--- NOTE | 2017-07-30 08:38 | CP.PCM.PN ---
<Heena Xiao - Last Filed: 07/30/17 08:42> Subjective - Date & Time of Evaluation Date of Evaluation: 07/30/17 Time of Evaluation: 08:38 - Subjective Subjective: 62 y/ofemale seen at bedside with attending Dr. Martínez for bilateral superficial weeping ulcerations with bilateral lower leg cellulitis. Patient is AAOx3 and is in NAD. Patient states there was no weeping of her legs overnight. 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 Denies any acute overnight events. Denies F/C/N/V/CP/SOB Objective - Vital Signs/Intake and Output Vital Signs (last 24 hours): Temp Pulse Resp BP Pulse Ox 98.8 F 90 20 110/70 90 L 07/29/17 10:00 07/29/17 10:00 07/29/17 10:00 07/29/17 10:45 07/28/17 15:43 - Medications Medications: Current Medications Acetaminophen (Tylenol 325mg Tab) 650 mg PO Q4H PRN; Protocol PRN Reason: pain/fever Buspirone HCl (Buspar) 5 mg PO HS JENNY PRN Reason: Protocol Last Admin: 07/29/17 22:27 Dose: 5 mg Citalopram Hydrobromide (Celexa) 20 mg PO DAILY [facility] Last Admin: 07/29/17 11:30 Dose: Not Given Desoximetasone (Topicort 0.25%) 0 ea TOP BID JENNY PRN Reason: Protocol Last Admin: 07/29/17 18:11 Dose: 1 applic Furosemide (Lasix) 20 mg IVP DAILY JENNY PRN Reason: Protocol Last Admin: 07/29/17 10:45 Dose: 20 mg Home Med (Home Med) 1 unit PO 0700 [facility] Last Admin: 07/30/17 07:07 Dose: 1 unit Home Med (Home Med) 1 unit PO BID [facility] Last Admin: 07/29/17 18:11 Dose: 1 unit Vancomycin HCl (Vancomycin 1gm) 1 gm in 250 mls @ 167 mls/hr IVPB 0600,1800 JENNY PRN Reason: Protocol Last Admin: 07/30/17 05:30 Dose: 167 mls/hr Aztreonam (Azactam 1 Gm) 100 mls @ 100 mls/hr IV Q8 JENNY PRN Reason: Protocol Stop: 08/06/17 06:01 Last Admin: 07/30/17 05:30 Dose: 100 mls/hr Lactobacillus Acidophilus (Bacid Acidophilus) 2 cap PO DAILY JENNY PRN Reason: Protocol Last Admin: 07/29/17 10:45 Dose: 2 cap Multi-Ingredient Cream (Hydrocerin Cream) 0 ea TOP BID JENNY PRN Reason: Protocol Last Admin: 07/29/17 18:11 Dose: Not Given Mupirocin (Bactroban Ointment) 0 gm TOP BID JENNY PRN Reason: Protocol Last Admin: 07/29/17 18:10 Dose: 1 applic Ondansetron HCl (Zofran Inj) 4 mg IVP Q6H PRN; Protocol PRN Reason: Nausea/Vomiting Oxycodone HCl (Oxycontin Extended Release Tab) 30 mg PO 0600,1800 JENNY PRN Reason: Protocol Stop: 07/31/17 06:01 Last Admin: 07/30/17 05:29 Dose: 30 mg Polyethylene Glycol (Miralax) 17 gm PO DAILY JENNY PRN Reason: Protocol Last Admin: 07/29/17 10:45 Dose: 17 gm Potassium Chloride (Klor-Con 10) 10 meq PO BRK [facility] Last Admin: 07/30/17 08:06 Dose: 10 meq Tramadol HCl (Ultram) 50 mg PO 0000,0600,1200,1800 JENNY PRN Reason: Protocol Last Admin: 07/30/17 05:28 Dose: 50 mg - Labs Labs: 07/29/17 06:45 07/29/17 06:45 - Constitutional Appears: Well, Non-toxic, No Acute Distress - Extremities Exam Additional comments: Bilateral lower extremity focused examination: Dressings clean dry and intact with no strikethrough note today to B/L dressings Vasc: DP/PT pulses faintly palpable 1/4 B/L. CFT < 3 seconds to all digits. Temperature runs warm to cool proximal to distal, within normal limits. +1 pitting edema noted B/L, improving since admission Derm: Distal 2/3 of legs and heels with cellulitic skin changes, R worse than L. Erythema resolving since admission. Plantar xerosis noted to bilateral feet with stage 1 erythematous pressure ulceration noted to R heel. Lateral aspect of left leg exhibits superficial ulceration with mixed fibrogranular base - no malodor, fluctuance, tunneling, purulence, undermining or active drainage. Neuro: Diminished protective sensation B/L Ortho: Mild tenderness to palpation of right leg, decreased compared to previous visits. Left leg exhibits localized tenderness at superficial lateral ulceration. Lower leg and pedal muscle strength is graded 5/5. No limitation to range of motion. - Neurological Exam Neurological Exam: Alert, Awake, Oriented x3 - Psychiatric Exam Psychiatric exam: Normal Affect, Normal Mood Assessment and Plan - Assessment and Plan (Free Text) Assessment: 62 year old female with bilateral cellulitis and lateral left leg superficial ulceration Plan: Pt seen and evaluated at bedside with attending Dr. Martínez Chart, labs, and vitals reviewed. WBC 3.7, afebrile Wound culture of L leg positive for Klebsiella, MRSA Continue Aztreonam, Vancomycin as per ID Venous duplex (-) for DVT Arterial doppler studies - normal DANIEL/PVR values at rest Cleansed lower legs with sterile saline and dressed with bactroban, adaptic, ABD and DSD Hydrocerin cream applied to bilateral plantar feet and heels Offloading boots applied to LE, to be worn at all times in bed Podiatry will continue to follow patient while in house <Jose Guadalupe Martínez - Last Filed: 07/30/17 15:35> Objective - Vital Signs/Intake and Output Vital Signs (last 24 hours): Temp Pulse Resp BP Pulse Ox 97.4 F L 88 18 102/77 98 07/30/17 10:18 07/30/17 10:18 07/30/17 10:18 07/30/17 10:18 07/30/17 10:18 - Medications Medications: Current Medications Acetaminophen (Tylenol 325mg Tab) 650 mg PO Q4H PRN; Protocol PRN Reason: pain/fever Bisacodyl (Dulcolax) 10 mg RC DAILY PRN PRN Reason: Constipation Buspirone HCl (Buspar) 5 mg PO HS [facility] PRN Reason: Protocol Last Admin: 07/29/17 22:27 Dose: 5 mg Citalopram Hydrobromide (Celexa) 20 mg PO DAILY [facility] Last Admin: 07/30/17 10:08 Dose: 20 mg Desoximetasone (Topicort 0.25%) 0 ea TOP BID [facility] PRN Reason: Protocol Last Admin: 07/30/17 10:08 Dose: 1 applic Furosemide (Lasix) 20 mg IVP DAILY JENNY PRN Reason: Protocol Last Admin: 07/30/17 10:11 Dose: 20 mg Home Med (Home Med) 1 unit PO 0700 [facility] Last Admin: 07/30/17 07:07 Dose: 1 unit Home Med (Home Med) 1 unit PO BID JENNY Last Admin: 07/30/17 10:08 Dose: 1 unit Vancomycin HCl (Vancomycin 1gm) 1 gm in 250 mls @ 167 mls/hr IVPB 0600,1800 JENNY PRN Reason: Protocol Last Admin: 07/30/17 05:30 Dose: 167 mls/hr Aztreonam (Azactam 1 Gm) 100 mls @ 100 mls/hr IV Q8 JENNY PRN Reason: Protocol Stop: 08/06/17 06:01 Last Admin: 07/30/17 13:56 Dose: 100 mls/hr Lactobacillus Acidophilus (Bacid Acidophilus) 2 cap PO DAILY JENNY PRN Reason: Protocol Last Admin: 07/30/17 10:07 Dose: 2 cap Multi-Ingredient Cream (Hydrocerin Cream) 0 ea TOP BID JENNY PRN Reason: Protocol Last Admin: 07/30/17 10:08 Dose: 1 applic Mupirocin (Bactroban Ointment) 0 gm TOP BID JENNY PRN Reason: Protocol Last Admin: 07/30/17 10:08 Dose: 1 applic Ondansetron HCl (Zofran Inj) 4 mg IVP Q6H PRN; Protocol PRN Reason: Nausea/Vomiting Last Admin: 07/30/17 10:17 Dose: 4 mg Oxycodone HCl (Oxycontin Extended Release Tab) 30 mg PO 0600,1800 JENNY PRN Reason: Protocol Stop: 07/31/17 06:01 Last Admin: 07/30/17 05:29 Dose: 30 mg Polyethylene Glycol (Miralax) 17 gm PO DAILY JENNY PRN Reason: Protocol Last Admin: 07/30/17 10:08 Dose: 17 gm Potassium Chloride (Klor-Con 10) 10 meq PO BRK [facility] Last Admin: 07/30/17 08:06 Dose: 10 meq Tramadol HCl (Ultram) 50 mg PO 0000,0600,1200,1800 JENNY PRN Reason: Protocol Last Admin: 07/30/17 13:56 Dose: Not Given - Labs Labs: 07/29/17 06:45 07/29/17 06:45 Attending/Attestation - Attestation I have personally seen and examined this patient.: Yes I have fully participated in the care of the patient.: Yes I have reviewed all pertinent clinical information, including history, physical exam and plan: Yes
[2017-07-30] MEDS: Lactobacillus Acidophilus 500 MU Cap PO SCH (10:07)
[2017-07-30] MEDS: Hydrocerin(120 gm) TOP SCH ×2 (10:08→17:19)
[2017-07-30] MEDS: BIOTIN 10000 MCG PO SCH ×2 (10:08→17:19)
[2017-07-30] MEDS: POLYETHYLENE GLYCOL 3350 17 GM/Dose PACKET PO SCH (10:08)
[2017-07-30] MEDS: Desoximetasone 0.25% Cream(15 gm) TOP SCH ×2 (10:08→17:19)
--- NOTE | 2017-07-30 15:41 | PN ---
DATE: SUBJECTIVE: The patient is a 62 years old, seen and examined, complain of constipation, complain of generalized weakness, states that Lasix is making her weak. PHYSICAL EXAMINATION: VITAL SIGNS: She is afebrile, pulse 88, respirations 18, blood pressure 102/77. LUNGS: Bilateral fair airflow. No rhonchi or crackles. HEART: S1, S2 audible. ABDOMEN: Soft, nontender. No rebound, no guarding. NEUROLOGIC: Patient is awake and alert, able to communicate, able to ambulate with a cane. ASSESSMENT: 1. Bilateral leg edema, bilateral leg ulcers. 2. Klebsiella pneumoniae leg infection. 3. Methicillin-resistant wound infection. 4. Multiple sclerosis. 5. Sarcoidosis. 6. Hypoalbuminemia. 7. Chronic anemia. 8. History of nephrolithiasis, status post lithotripsy followed by ureteral stent placement that has been removed. PLAN: Continue patient on current medications. She is on Azactam. I will request for Dulcolax suppository as needed. We will monitor her H and H and CBC and CMP for Tuesday. Rad Onofre MD
--- NOTE | 2017-07-31 00:50 | PN ---
DATE: 07/30/2017 SUBJECTIVE: The patient is in bed, in no acute distress. PHYSICAL EXAMINATION: VITAL SIGNS: Temperature is 98, blood pressure is 105/90, respiratory rate of 18, heart rate of 67. HEENT: Unremarkable. NECK: Supple. LUNGS: Decreased breath sounds. HEART: Normal S1 and S2. ABDOMEN: Soft, nontender. LABORATORY DATA: Reveals white count of 3.7, hemoglobin of 10, platelets of 195. Chemistry reveals the BUN of 19, creatinine of 0.6, vancomycin trough is 14.7 and microbiology is reviewed. ASSESSMENT AND PLAN: This is a 62-year-old female with bilateral lower extremity skin and skin structure infection with methicillin-resistant staphylococcus aureus and Klebsiella, chronic lymphocytic leukemia, chronic anemia, hypertension, multiple sclerosis, sarcoidosis, history of pancreatitis with vancomycin and aztreonam, day number 6 and complete 7 to 10 days. Review of orders revealed the and vancomycin to be active. James Latif MD
[2017-07-31] MEDS: Aztreonam 1 Gm in NS 100mL 100 ML IV SCH ×3 (05:21→21:46)
[2017-07-31] MEDS: Vancomycin 1gm in NS 250ml 1 GM/250 ML BAG IVPB SCH ×2 (05:21→17:13)
[2017-07-31] MEDS: DEXTROAMPHETAMINE PO SCH (07:02)
[2017-07-31] MEDS: AMPHETAMINE PO SCH (07:02)
[2017-07-31] MEDS: Potassium Chloride 10 mEq ER Tab PO SCH (07:41)
[2017-07-31] MEDS: Lactobacillus Acidophilus 500 MU Cap PO SCH (09:48)
[2017-07-31] MEDS: BIOTIN 10000 MCG PO SCH ×2 (09:49→17:12)
[2017-07-31] MEDS: Hydrocerin(120 gm) TOP SCH ×2 (09:49→17:13)
[2017-07-31] MEDS: POLYETHYLENE GLYCOL 3350 17 GM/Dose PACKET PO SCH (09:52)
[2017-07-31] MEDS: Desoximetasone 0.25% Cream(15 gm) TOP SCH ×2 (09:53→17:13)
--- NOTE | 2017-07-31 14:19 | CP.PCM.PN ---
<Heena Xiao - Last Filed: 07/31/17 14:16> Subjective - Date & Time of Evaluation Date of Evaluation: 07/31/17 Time of Evaluation: 14:16 - Subjective Subjective: 62 y/o female seen resting in bedside chair for bilateral lower leg cellulitis with right leg superficial weeping ulceration. Patient is AAOx3 and is in NAD. Patient states there was mild weeping of her right leg ulcer overnight. Bandages remain intact to both lower extremities. Also admits to having decreased pain in both legs, but they still feel heavy. States she does not like wearing the offloading boots but tries to when she is in bed. Denies any acute overnight events. Denies F/C/N/V/CP/SOB Objective - Vital Signs/Intake and Output Vital Signs (last 24 hours): Temp Pulse Resp BP Pulse Ox 97.8 F 71 20 101/73 98 07/31/17 06:00 07/31/17 06:00 07/31/17 06:00 07/31/17 09:49 07/31/17 06:00 Intake and Output: 07/31/17 07/31/17 06:59 18:59 Intake Total 460 Balance 460 - Medications Medications: Current Medications Acetaminophen (Tylenol 325mg Tab) 650 mg PO Q4H PRN; Protocol PRN Reason: pain/fever Bisacodyl (Dulcolax) 10 mg RC DAILY PRN PRN Reason: Constipation Last Admin: 07/30/17 17:20 Dose: 10 mg Buspirone HCl (Buspar) 5 mg PO HS JENNY PRN Reason: Protocol Last Admin: 07/30/17 22:18 Dose: 5 mg Citalopram Hydrobromide (Celexa) 20 mg PO DAILY [facility] Last Admin: 07/30/17 10:08 Dose: 20 mg Desoximetasone (Topicort 0.25%) 0 ea TOP BID JENNY PRN Reason: Protocol Last Admin: 07/31/17 09:53 Dose: 1 applic Furosemide (Lasix) 20 mg IVP DAILY JENNY PRN Reason: Protocol Last Admin: 07/31/17 09:49 Dose: 20 mg Home Med (Home Med) 1 unit PO 0700 [facility]EN[facility] Last Admin: 07/31/17 07:02 Dose: 1 unit Home Med (Home Med) 1 unit PO BID [facility] Last Admin: 07/31/17 09:49 Dose: 1 unit Vancomycin HCl (Vancomycin 1gm) 1 gm in 250 mls @ 167 mls/hr IVPB 0600,1800 [facility] PRN Reason: Protocol Last Admin: 07/31/17 05:21 Dose: 167 mls/hr Aztreonam (Azactam 1 Gm) 100 mls @ 100 mls/hr IV Q8 JENNY PRN Reason: Protocol Stop: 08/06/17 06:01 Last Admin: 07/31/17 05:21 Dose: 100 mls/hr Lactobacillus Acidophilus (Bacid Acidophilus) 2 cap PO DAILY JENNY PRN Reason: Protocol Last Admin: 07/31/17 09:48 Dose: 2 cap Multi-Ingredient Cream (Hydrocerin Cream) 0 ea TOP BID JENNY PRN Reason: Protocol Last Admin: 07/31/17 09:49 Dose: 1 applic Mupirocin (Bactroban Ointment) 0 gm TOP BID JENNY PRN Reason: Protocol Last Admin: 07/31/17 09:48 Dose: 1 applic Ondansetron HCl (Zofran Inj) 4 mg IVP Q6H PRN; Protocol PRN Reason: Nausea/Vomiting Last Admin: 07/31/17 09:58 Dose: 4 mg Oxycodone HCl (Oxycontin Extended Release Tab) 30 mg PO 0600,1800 [facility] Stop: 08/03/17 18:01 Polyethylene Glycol (Miralax) 17 gm PO DAILY [facility] PRN Reason: Protocol Last Admin: 07/31/17 09:52 Dose: 17 gm Potassium Chloride (Klor-Con 10) 10 meq PO BRK [facility] Last Admin: 07/31/17 07:41 Dose: 10 meq Tramadol HCl (Ultram) 50 mg PO 0000,0600,1200,1800 [facility] PRN Reason: Protocol Last Admin: 07/31/17 12:53 Dose: 50 mg - Labs Labs: 07/29/17 06:45 07/29/17 06:45 - Constitutional Appears: Well, Non-toxic, No Acute Distress - Extremities Exam Additional comments: Bilateral lower extremity focused examination: Dressings clean dry and intact with no strikethrough note today to B/L dressings Vasc: DP/PT pulses faintly palpable 1/4 B/L. CFT < 3 seconds to all digits. Temperature runs warm to cool proximal to distal, within normal limits. +1 pitting edema noted B/L, improving since admission Derm: Distal 2/3 of legs and heels with cellulitic skin changes, R worse than L. Erythema resolving since admission. Plantar xerosis noted to bilateral feet with stage 1 erythematous pressure ulceration noted to R heel. Lateral aspect of left leg exhibits superficial ulceration with mixed fibrogranular base - no malodor, fluctuance, tunneling, purulence, undermining or active drainage. Proximal lateral exhibits superficial weeping ulceration with fibrogranular base - no malodor, tunneling or undermining. No active drainage- serosanguinous strikethrough noted on previous dressing Neuro: Diminished protective sensation B/L Ortho: Mild tenderness to palpation of right leg, decreased compared to previous visits. Left leg exhibits localized tenderness at superficial lateral ulceration. Lower leg and pedal muscle strength is graded 5/5. No limitation to range of motion. - Neurological Exam Neurological Exam: Alert, Awake, Oriented x3 - Psychiatric Exam Psychiatric exam: Normal Affect, Normal Mood Assessment and Plan - Assessment and Plan (Free Text) Assessment: 62 year old female with bilateral cellulitis and lateral left leg superficial ulceration Plan: Pt seen and evaluated at bedside Discussed with attending Dr. Puckett Chart, labs, and vitals reviewed. WBC 3.7, afebrile Wound culture of L leg positive for Klebsiella, MRSA Continue Aztreonam, Vancomycin as per ID Venous duplex (-) for DVT Arterial doppler studies - normal DANIEL/PVR values at rest Cleansed lower legs with sterile saline and dressed ulcerations with bactroban, desoximetasone cream, ABD and DSD Hydrocerin cream applied to bilateral plantar feet and heels Offloading boots bedside - to be applied to LE at all times in bed Podiatry will continue to follow patient while in house <Valerie Puckett - Last Filed: 08/08/17 14:17> Objective - Vital Signs/Intake and Output Vital Signs (last 24 hours): Temp Pulse Resp BP Pulse Ox 98.3 F 85 18 105/77 97 08/04/17 10:19 08/04/17 10:19 08/04/17 10:19 08/04/17 14:10 08/04/17 10:19 - Labs Labs: 08/02/17 06:40 08/02/17 06:40 Attending/Attestation - Attestation I have personally seen and examined this patient.: Yes I have fully participated in the care of the patient.: Yes I have reviewed all pertinent clinical information, including history, physical exam and plan: Yes
[2017-07-31] MEDS: oxyCODONE 10 mg ER Tab (oxyCONTIN) PO SCH (17:10)
[2017-07-31] MEDS ORDERED: oxyCODONE 20 mg ER Tab (oxyCONTIN) PO SCH (18:00)
--- NOTE | 2017-07-31 18:30 | PN ---
DATE: 07/31/2017 SUBJECTIVE: She is comfortable in bed, in no acute distress. Both her lower legs are in dressing. She is not able to ambulate very well because of the leg ulcers and pain. Complaining of generalized weakness. No shortness of breath. Complaining of sore throat, asking for loratadine. REVIEW OF SYSTEMS: As per HPI. Rest of 12-point review of systems reviewed, negative. PHYSICAL EXAMINATION: VITAL SIGNS: Afebrile. Temperature is 98.7, heart rate 80 per minute, respiratory rate 15 per minute, blood pressure 100/70. HEENT: Pallor positive. NECK: No lymphadenopathy. CHEST: Air entry present, equal bilaterally. No added sounds. CARDIOVASCULAR: S1 and S2 normal. No murmur. No gallop. ABDOMEN: Soft, nontender, no hepatosplenomegaly. EXTREMITIES: No edema. NEUROLOGIC: Awake, alert and oriented x3. No focal sensory or motor deficit. LABORATORY DATA: White count 3.7, hemoglobin 10.3, hematocrit 30.8, platelet count 195. Sodium 132, potassium 4.1, BUN 19, creatinine 0.6. MEDICATIONS: Tylenol 650 q.6 hours p.r.n., Azactam q.8 hours, Dulcolax, BuSpar 5 mg p.o. at bedtime, Celexa 20 mg daily, Lasix 20 mg IV daily, MiraLax, potassium, vancomycin. ASSESSMENT: 1. Bilateral leg edema, bilateral leg ulcers. 2. Klebsiella pneumoniae leg infection. 3. Methicillin-resistant Staphylococcus aureus. 4. Sarcoidosis. 5. Chronic anemia. 6. Leukopenia. 7. History of nephrolithiasis. PLAN: She is currently in transitional care unit, currently on IV antibiotics Azactam and vancomycin. Dr. Latif is following. She has leukopenia and chronic anemia. We will continue to monitor blood counts. Renal functions are within normal limits. Continue K-Dur. Loratadine 10 mg daily for chronic allergies, BuSpar 5 mg p.o. at bedtime. Dulcolax to continue. Aria Merrill MD [facility] # [id number]
--- NOTE | 2017-07-31 21:12 | PN ---
DATE: 07/31/2017 SUBJECTIVE: Patient was seen earlier today in room 317. No fevers and no chills. PHYSICAL EXAMINATION: GENERAL: Patient's temperature 97, blood pressure is 105/90, respiratory rate of 18, heart rate of 71. HEENT: Unremarkable. NECK: Supple. LUNGS: Have decreased breath sounds. HEART: Normal S1, S2. ABDOMEN: Soft. LABORATORY EXAMINATION: Reveals the patient's WBC is 3.7, hemoglobin of 10, platelets of 195. BUN of 19, creatinine of 0.6, vancomycin trough is 14.7. Microbiology revealed the patient had Klebsiella from the left leg and an MRSA from the left leg that was conducted on 07/23/2017. The Klebsiella is relatively sensitive Klebsiella. The MRSA has a vancomycin MAURIZIO of 1. Review of orders reveals the patient to be on aztreonam and IV vancomycin. ASSESSMENT AND PLAN: This is a 62-year-old female with bilateral lower extremity skin and skin soft tissue infection with methicillin-resistant Staphylococcus aureus and Klebsiella, chronic lymphocytic leukemia, chronic anemia, hypertension, multiple sclerosis, sarcoidosis and today is day #7 of vancomycin and aztreonam with complete 7 or 10 days of antibiotics. James Latif MD
[2017-08-01] MEDS: Aztreonam 1 Gm in NS 100mL 100 ML IV SCH ×3 (05:01→22:03)
[2017-08-01] MEDS: oxyCODONE 10 mg ER Tab (oxyCONTIN) PO SCH ×2 (05:01→18:22)
[2017-08-01] MEDS: Vancomycin 1gm in NS 250ml 1 GM/250 ML BAG IVPB SCH ×2 (05:01→18:17)
[2017-08-01] MEDS: AMPHETAMINE PO SCH (07:00)
[2017-08-01] MEDS: DEXTROAMPHETAMINE PO SCH (07:00)
[2017-08-01] MEDS: Potassium Chloride 10 mEq ER Tab PO SCH (09:00)
[2017-08-01] MEDS: Lactobacillus Acidophilus 500 MU Cap PO SCH (09:22)
[2017-08-01] MEDS: Desoximetasone 0.25% Cream(15 gm) TOP SCH ×2 (09:23→18:15)
[2017-08-01] MEDS: Hydrocerin(120 gm) TOP SCH ×2 (09:23→18:15)
[2017-08-01] MEDS: POLYETHYLENE GLYCOL 3350 17 GM/Dose PACKET PO SCH (09:23)
[2017-08-01] MEDS: BIOTIN 10000 MCG PO SCH ×2 (09:23→18:14)
--- NOTE | 2017-08-01 12:59 | CP.PCM.PN ---
Subjective - Date & Time of Evaluation Date of Evaluation: 08/01/17 Time of Evaluation: 11:55 - Subjective Subjective: Comfortable, no fevers, legs feel better. Objective - Vital Signs/Intake and Output Vital Signs (last 24 hours): Temp Pulse Resp BP Pulse Ox 97.4 F L 67 20 96/64 L 97 07/31/17 16:21 07/31/17 16:21 07/31/17 16:21 07/31/17 16:21 07/31/17 16:21 - Medications Medications: Current Medications Acetaminophen (Tylenol 325mg Tab) 650 mg PO Q4H PRN; Protocol PRN Reason: pain/fever Bisacodyl (Dulcolax) 10 mg RC DAILY PRN PRN Reason: Constipation Last Admin: 07/30/17 17:20 Dose: 10 mg Buspirone HCl (Buspar) 5 mg PO HS [facility] PRN Reason: Protocol Last Admin: 07/31/17 22:29 Dose: 5 mg Citalopram Hydrobromide (Celexa) 20 mg PO HS JENNY Desoximetasone (Topicort 0.25%) 0 ea TOP BID [facility]ENNY PRN Reason: Protocol Last Admin: 08/01/17 09:23 Dose: 1 applic Furosemide (Lasix) 20 mg IVP DAILY [facility] PRN Reason: Protocol Last Admin: 07/31/17 09:49 Dose: 20 mg Home Med (Home Med) 1 unit PO 0700 [facility] Last Admin: 08/01/17 07:00 Dose: 1 unit Home Med (Home Med) 1 unit PO BID [facility] Last Admin: 08/01/17 09:23 Dose: 1 unit Vancomycin HCl (Vancomycin 1gm) 1 gm in 250 mls @ 167 mls/hr IVPB 0600,1800 [facility] PRN Reason: Protocol Last Admin: 08/01/17 05:01 Dose: 167 mls/hr Aztreonam (Azactam 1 Gm) 100 mls @ 100 mls/hr IV Q8 JENNY PRN Reason: Protocol Stop: 08/06/17 06:01 Last Admin: 08/01/17 05:01 Dose: 100 mls/hr Lactobacillus Acidophilus (Bacid Acidophilus) 2 cap PO DAILY [facility] PRN Reason: Protocol Last Admin: 08/01/17 09:22 Dose: 2 cap Loratadine (Claritin) 10 mg PO DAILY [facility] PRN Reason: Protocol Last Admin: 08/01/17 09:18 Dose: 10 mg Multi-Ingredient Cream (Hydrocerin Cream) 0 ea TOP BID [facility]EN[facility] PRN Reason: Protocol Last Admin: 08/01/17 09:23 Dose: 1 applic Mupirocin (Bactroban Ointment) 0 gm TOP BID [facility]EN[facility] PRN Reason: Protocol Last Admin: 08/01/17 09:22 Dose: 1 applic Ondansetron HCl (Zofran Inj) 4 mg IVP Q6H PRN; Protocol PRN Reason: Nausea/Vomiting Last Admin: 07/31/17 09:58 Dose: 4 mg Oxycodone HCl (Oxycontin Extended Release Tab) 30 mg PO 0600,1800 [facility] Stop: 08/03/17 18:01 Last Admin: 08/01/17 05:01 Dose: 30 mg Polyethylene Glycol (Miralax) 17 gm PO DAILY [facility] PRN Reason: Protocol Last Admin: 08/01/17 09:23 Dose: 17 gm Potassium Chloride (Klor-Con 10) 10 meq PO BRK [facility] Last Admin: 08/01/17 09:00 Dose: 10 meq Tramadol HCl (Ultram) 50 mg PO 0000,0600,1200,1800 [facility] PRN Reason: Protocol Last Admin: 08/01/17 05:02 Dose: 50 mg - Labs Labs: 07/29/17 06:45 07/29/17 06:45 - Constitutional Appears: Non-toxic, Chronically Ill - Head Exam Head Exam: NORMAL INSPECTION - Respiratory Exam Respiratory Exam: Decreased Breath Sounds - Cardiovascular Exam Cardiovascular Exam: +S1, +S2 - GI/Abdominal Exam GI & Abdominal Exam: Soft. absent: Tenderness Assessment and Plan - Assessment and Plan (Free Text) Plan: Assessment bilateral lower extremity skin and skin structure infection with MRSA and Klebsiella chronic anemia HTN multiple sclerosis sarcoidosis history of pancreatitis S/P left ureteral stent Plan continue Vanco and Aztreonam day 8 to complete 7-10 days will continue to monitor clinically
--- NOTE | 2017-08-01 17:28 | CP.PCM.PN ---
<Myriam Borges - Last Filed: 08/01/17 17:23> Subjective - Date & Time of Evaluation Date of Evaluation: 08/01/17 Time of Evaluation: 17:24 - Subjective Subjective: 62 y/o female seen resting in bedside chair for bilateral lower leg cellulitis with right leg superficial weeping ulceration. Patient is AAOx3 and is in NAD. Patient states there was mild weeping of her right leg ulcer overnight. Patient reports that nurse placed JASMIN bandages before receiving physical therapy today because her bandages were slipping off. Bandages remain intact to both lower extremities. Also admits to having decreased pain in both legs, but they still feel heavy. Denies any acute overnight events. Denies F/C/N/V/CP/SOB Objective - Vital Signs/Intake and Output Vital Signs (last 24 hours): Temp Pulse Resp BP Pulse Ox 97.2 F L 94 H 16 100/74 97 08/01/17 10:00 08/01/17 10:00 08/01/17 10:00 08/01/17 11:00 08/01/17 10:00 - Medications Medications: Current Medications Acetaminophen (Tylenol 325mg Tab) 650 mg PO Q4H PRN; Protocol PRN Reason: pain/fever Bisacodyl (Dulcolax) 10 mg RC DAILY PRN PRN Reason: Constipation Last Admin: 07/30/17 17:20 Dose: 10 mg Buspirone HCl (Buspar) 5 mg PO HS [facility]ENNY PRN Reason: Protocol Last Admin: 07/31/17 22:29 Dose: 5 mg Citalopram Hydrobromide (Celexa) 20 mg PO HS [facility]ENNY Desoximetasone (Topicort 0.25%) 0 ea TOP BID [facility] PRN Reason: Protocol Last Admin: 08/01/17 09:23 Dose: 1 applic Furosemide (Lasix) 20 mg IVP DAILY [facility] PRN Reason: Protocol Last Admin: 08/01/17 11:00 Dose: 20 mg Home Med (Home Med) 1 unit PO 0700 [facility] Last Admin: 08/01/17 07:00 Dose: 1 unit Home Med (Home Med) 1 unit PO BID [facility] Last Admin: 08/01/17 09:23 Dose: 1 unit Vancomycin HCl (Vancomycin 1gm) 1 gm in 250 mls @ 167 mls/hr IVPB 0600,1800 [facility] PRN Reason: Protocol Last Admin: 08/01/17 05:01 Dose: 167 mls/hr Aztreonam (Azactam 1 Gm) 100 mls @ 100 mls/hr IV Q8 [facility] PRN Reason: Protocol Stop: 08/06/17 06:01 Last Admin: 08/01/17 15:08 Dose: 100 mls/hr Lactobacillus Acidophilus (Bacid Acidophilus) 2 cap PO DAILY [facility]NY PRN Reason: Protocol Last Admin: 08/01/17 09:22 Dose: 2 cap Loratadine (Claritin) 10 mg PO DAILY [facility] PRN Reason: Protocol Last Admin: 08/01/17 09:18 Dose: 10 mg Multi-Ingredient Cream (Hydrocerin Cream) 0 ea TOP BID [facility] PRN Reason: Protocol Last Admin: 08/01/17 09:23 Dose: 1 applic Mupirocin (Bactroban Ointment) 0 gm TOP BID [facility] PRN Reason: Protocol Last Admin: 08/01/17 09:22 Dose: 1 applic Ondansetron HCl (Zofran Inj) 4 mg IVP Q6H PRN; Protocol PRN Reason: Nausea/Vomiting Last Admin: 07/31/17 09:58 Dose: 4 mg Oxycodone HCl (Oxycontin Extended Release Tab) 30 mg PO 0600,1800 [facility] Stop: 08/03/17 18:01 Last Admin: 08/01/17 05:01 Dose: 30 mg Polyethylene Glycol (Miralax) 17 gm PO DAILY [facility] PRN Reason: Protocol Last Admin: 08/01/17 09:23 Dose: 17 gm Potassium Chloride (Klor-Con 10) 10 meq PO BRK [facility] Last Admin: 08/01/17 09:00 Dose: 10 meq Tramadol HCl (Ultram) 50 mg PO 0000,0600,1200,1800 [facility] PRN Reason: Protocol Last Admin: 08/01/17 05:02 Dose: 50 mg - Labs Labs: 07/29/17 06:45 07/29/17 06:45 - Constitutional Appears: Well, Non-toxic, No Acute Distress - Extremities Exam Additional comments: Bilateral lower extremity focused examination: Dressings clean dry and intact with no strikethrough note today to B/L dressings Vasc: DP/PT pulses faintly palpable 1/4 B/L. CFT < 3 seconds to all digits. Temperature runs warm to cool proximal to distal, within normal limits. +1 pitting edema noted B/L, improving since admission Derm: Distal 2/3 of legs and heels with cellulitic skin changes, R worse than L. Erythema resolving since admission. Plantar xerosis noted to bilateral feet with stage 1 erythematous pressure ulceration noted to R heel. Lateral aspect of left leg exhibits superficial ulceration with mixed fibrogranular base - no malodor, fluctuance, tunneling, purulence, undermining or active drainage. Proximal lateral exhibits superficial weeping ulceration with fibrogranular base - no malodor, tunneling or undermining. No active drainage- serosanguinous strikethrough noted on previous dressing Neuro: Diminished protective sensation B/L Ortho: Mild tenderness to palpation of right leg, decreased compared to previous visits. Left leg exhibits localized tenderness at superficial lateral ulceration. Lower leg and pedal muscle strength is graded 5/5. No limitation to range of motion. - Neurological Exam Neurological Exam: Alert, Awake, Oriented x3 - Psychiatric Exam Psychiatric exam: Normal Affect, Normal Mood Assessment and Plan - Assessment and Plan (Free Text) Assessment: 62 year old female with bilateral cellulitis and lateral left leg superficial ulceration Plan: Pt seen and evaluated at bedside Discussed with attending Dr. Puckett Chart, labs, and vitals reviewed. WBC 3.7 as of 07/29, afebrile Wound culture of L leg positive for Klebsiella, MRSA Continue Aztreonam, Vancomycin as per ID Venous duplex (-) for DVT Arterial doppler studies - normal DANIEL/PVR values at rest Cleansed lower legs with sterile saline and dressed ulcerations with bactroban, Adaptic, ABD and DSD and bilateral heels with Optifoam Hydrocerin cream applied to bilateral plantar feet and heels Offloading boots bedside - to be applied to LE at all times in bed Podiatry will continue to follow patient while in house <Valerie Puckett - Last Filed: 08/08/17 14:53> Objective - Vital Signs/Intake and Output Vital Signs (last 24 hours): Temp Pulse Resp BP Pulse Ox 98.3 F 85 18 105/77 97 08/04/17 10:19 08/04/17 10:19 08/04/17 10:19 08/04/17 14:10 08/04/17 10:19 - Labs Labs: 08/02/17 06:40 08/02/17 06:40 Attending/Attestation - Attestation I have personally seen and examined this patient.: Yes I have fully participated in the care of the patient.: Yes I have reviewed all pertinent clinical information, including history, physical exam and plan: Yes
[2017-08-02] MEDS: Aztreonam 1 Gm in NS 100mL 100 ML IV SCH ×3 (05:34→21:35)
[2017-08-02] MEDS: oxyCODONE 10 mg ER Tab (oxyCONTIN) PO SCH ×2 (05:35→18:42)
[2017-08-02] MEDS: Vancomycin 1gm in NS 250ml 1 GM/250 ML BAG IVPB SCH ×2 (05:36→18:43)
[2017-08-02 07:11] LABS: BASO # 0.04 K/mm3 (0.0-2.0); BASO % 0.9 % (0.0-3.0); EOS # 0.1 (0.0-0.7); EOS % 1.6 % (1.5-5.0); GRAN # 2.81 (1.4-6.5); GRAN % 62.8 % (50.0-68.0); HEMOGLOBIN 10.4 g/dL (12.0-16.0); LYMPH # 1.1 (1.2-3.4); LYMPH % 23.7 % (22.0-35.0); MEAN CELL VOLUME 96.1 fl (80.0-105.0); MEAN CORPUSCULAR HEMOGLOBIN 31.5 pg (25.0-35.0); MEAN CORPUSCULAR HGB CONC 32.8 g/dl (31.0-37.0); MEAN PLATELET VOLUME 8.9 fl (7.0-11.0); MONO # 0.5 (0.1-0.6); RBC 3.3 10^6/uL (3.5-6.1); WHITE BLOOD COUNT 4.5 10^3/ul (4.5-11.0)
[2017-08-02 08:03] LABS: ALB/GLOB RATIO 0.6 (1.1-1.8); ALBUMIN 1.6 g/dL (3.0-4.8); ALT/SGPT 43 U/L (7-56); AST/SGOT 37 U/L (14-36); BLOOD UREA NITROGEN 18 mg/dL (7-21); CALCIUM 7.4 mg/dL (8.4-10.5); GFR AFRICAN-AMERICAN > 60; GFR NON-AFRICAN AMERICAN > 60
--- NOTE | 2017-08-02 08:27 | PN ---
DATE: 08/01/2017 SUBJECTIVE: Patient is 62 years old, seen and examined, sitting in chair, seems to be comfortable, complaining of bilateral leg swelling and burning. PHYSICAL EXAMINATION: VITAL SIGNS: She is afebrile. Pulse 67, respirations 20, blood pressure is 96/64. LUNGS: Bilateral good airflow, no rhonchi or crackles. HEART: S1 and S2 audible. ABDOMEN: Soft, nontender, no rebound, no guarding. NEUROLOGICAL: She is awake and alert. Able to communicate. EXTREMITIES: Bilateral legs, +3 edema. ASSESSMENT: 1. Bilateral leg edema. 2. Hypoalbuminemia. 3. Deconditioning and difficulty walking. 4. History of sarcoidosis. 5. History of multiple sclerosis. 6. Chronic anemia. PLAN: A lot of electrolytes, CBC, CMP in a.m. Discussed with the nurse. We will apply tightish bandage to both legs and followup of electrolyte to be continued. Rad Onofre MD
[2017-08-02] MEDS: Potassium Chloride 10 mEq ER Tab PO SCH (09:00)
[2017-08-02] MEDS: BIOTIN 10000 MCG PO SCH ×2 (11:00→18:41)
[2017-08-02] MEDS: POLYETHYLENE GLYCOL 3350 17 GM/Dose PACKET PO SCH (11:00)
[2017-08-02] MEDS: Lactobacillus Acidophilus 500 MU Cap PO SCH (11:30)
[2017-08-02] MEDS: Hydrocerin(120 gm) TOP SCH ×2 (11:32→18:42)
[2017-08-02] MEDS: Desoximetasone 0.25% Cream(15 gm) TOP SCH ×2 (11:33→18:43)
--- NOTE | 2017-08-02 11:40 | CP.PCM.PN ---
Subjective - Date & Time of Evaluation Date of Evaluation: 08/02/17 Time of Evaluation: 11:35 - Subjective Subjective: Comfortable, no fevers. Objective - Vital Signs/Intake and Output Vital Signs (last 24 hours): Temp Pulse Resp BP Pulse Ox 97.8 F 85 18 100/94 H 97 08/01/17 17:36 08/01/17 17:36 08/01/17 17:36 08/01/17 17:36 08/01/17 17:36 Intake and Output: 08/02/17 08/02/17 06:59 18:59 Intake Total 360 Balance 360 - Medications Medications: Current Medications Acetaminophen (Tylenol 325mg Tab) 650 mg PO Q4H PRN; Protocol PRN Reason: pain/fever Bisacodyl (Dulcolax) 10 mg RC DAILY PRN PRN Reason: Constipation Last Admin: 07/30/17 17:20 Dose: 10 mg Buspirone HCl (Buspar) 5 mg PO HS [facility] PRN Reason: Protocol Last Admin: 08/01/17 22:04 Dose: 5 mg Citalopram Hydrobromide (Celexa) 20 mg PO HS [facility] Last Admin: 08/01/17 22:04 Dose: 20 mg Desoximetasone (Topicort 0.25%) 0 ea TOP BID [facility] PRN Reason: Protocol Last Admin: 08/01/17 18:15 Dose: 1 applic Furosemide (Lasix) 20 mg IVP DAILY [facility] PRN Reason: Protocol Last Admin: 08/01/17 11:00 Dose: 20 mg Home Med (Home Med) 1 unit PO 0700 [facility] Last Admin: 08/01/17 07:00 Dose: 1 unit Home Med (Home Med) 1 unit PO BID [facility] Last Admin: 08/01/17 18:14 Dose: 1 unit Vancomycin HCl (Vancomycin 1gm) 1 gm in 250 mls @ 167 mls/hr IVPB 0600,1800 [facility] PRN Reason: Protocol Last Admin: 08/02/17 05:36 Dose: 167 mls/hr Aztreonam (Azactam 1 Gm) 100 mls @ 100 mls/hr IV Q8 [facility] PRN Reason: Protocol Stop: 08/06/17 06:01 Last Admin: 08/02/17 05:34 Dose: 100 mls/hr Lactobacillus Acidophilus (Bacid Acidophilus) 2 cap PO DAILY [facility] PRN Reason: Protocol Last Admin: 08/01/17 09:22 Dose: 2 cap Loratadine (Claritin) 10 mg PO DAILY [facility] PRN Reason: Protocol Last Admin: 08/01/17 09:18 Dose: 10 mg Multi-Ingredient Cream (Hydrocerin Cream) 0 ea TOP BID [facility] PRN Reason: Protocol Last Admin: 08/01/17 18:15 Dose: 1 applic Mupirocin (Bactroban Ointment) 0 gm TOP BID [facility] PRN Reason: Protocol Last Admin: 08/01/17 18:15 Dose: 1 applic Ondansetron HCl (Zofran Inj) 4 mg IVP Q6H PRN; Protocol PRN Reason: Nausea/Vomiting Last Admin: 08/01/17 18:18 Dose: 4 mg Oxycodone HCl (Oxycontin Extended Release Tab) 30 mg PO 0600,1800 [facility] Stop: 08/03/17 18:01 Last Admin: 08/02/17 05:35 Dose: 30 mg Polyethylene Glycol (Miralax) 17 gm PO DAILY [facility] PRN Reason: Protocol Last Admin: 08/01/17 09:23 Dose: 17 gm Potassium Chloride (Klor-Con 10) 10 meq PO BRK [facility] Last Admin: 08/01/17 09:00 Dose: 10 meq Tramadol HCl (Ultram) 50 mg PO 0000,0600,1200,1800 [facility] PRN Reason: Protocol Last Admin: 08/02/17 05:39 Dose: 50 mg - Labs Labs: 08/02/17 06:40 08/02/17 06:40 - Constitutional Appears: Non-toxic, Chronically Ill - Head Exam Head Exam: NORMAL INSPECTION - Respiratory Exam Respiratory Exam: Decreased Breath Sounds - Cardiovascular Exam Cardiovascular Exam: +S1, +S2 - GI/Abdominal Exam GI & Abdominal Exam: Soft. absent: Tenderness Assessment and Plan - Assessment and Plan (Free Text) Plan: Assessment bilateral lower extremity skin and skin structure infection with MRSA and Klebsiella chronic anemia HTN multiple sclerosis sarcoidosis history of pancreatitis S/P left ureteral stent Plan continue Vanco and Aztreonam day 9 to complete 7-10 days will continue to monitor clinically
[2017-08-02] MEDS ORDERED: DEXTROAMPHETAMINE PO SCH (14:44)
[2017-08-02] MEDS ORDERED: AMPHETAMINE PO SCH (14:44)
--- NOTE | 2017-08-02 14:49 | CP.PCM.PN ---
<JonyChristianwoodyzacarias - Last Filed: 08/02/17 14:45> Subjective - Date & Time of Evaluation Date of Evaluation: 08/02/17 Time of Evaluation: 14:45 - Subjective Subjective: 62 y/o female seen resting in chair for bilateral lower leg cellulitis with right leg superficial weeping ulceration. Patient is AAOx3 and is in NAD. Denies of any acute overnight events. Bandages remain intact to both lower extremities. Also admits to having pain in both heels. Denies F/C/N/V/CP/SOB. No other pedal complains at this time. Objective - Vital Signs/Intake and Output Vital Signs (last 24 hours): Temp Pulse Resp BP Pulse Ox 97.8 F 85 18 121/77 97 08/01/17 17:36 08/01/17 17:36 08/01/17 17:36 08/02/17 11:00 08/01/17 17:36 Intake and Output: 08/02/17 08/02/17 06:59 18:59 Intake Total 360 Balance 360 - Medications Medications: Current Medications Acetaminophen (Tylenol 325mg Tab) 650 mg PO Q4H PRN; Protocol PRN Reason: pain/fever Bisacodyl (Dulcolax) 10 mg RC DAILY PRN PRN Reason: Constipation Last Admin: 07/30/17 17:20 Dose: 10 mg Buspirone HCl (Buspar) 5 mg PO HS [facility] PRN Reason: Protocol Last Admin: 08/01/17 22:04 Dose: 5 mg Citalopram Hydrobromide (Celexa) 20 mg PO HS [facility] Last Admin: 08/01/17 22:04 Dose: 20 mg Desoximetasone (Topicort 0.25%) 0 ea TOP BID [facility] PRN Reason: Protocol Last Admin: 08/02/17 11:33 Dose: Not Given Furosemide (Lasix) 20 mg IVP DAILY [facility] PRN Reason: Protocol Last Admin: 08/02/17 11:00 Dose: 20 mg Home Med (Home Med) 1 unit PO BID [facility] Last Admin: 08/02/17 11:00 Dose: 1 unit Home Med (Home Med) 1 unit PO 0700 [facility] Vancomycin HCl (Vancomycin 1gm) 1 gm in 250 mls @ 167 mls/hr IVPB 0600,1800 [facility] PRN Reason: Protocol Last Admin: 08/02/17 05:36 Dose: 167 mls/hr Aztreonam (Azactam 1 Gm) 100 mls @ 100 mls/hr IV Q8 [facility] PRN Reason: Protocol Stop: 08/06/17 06:01 Last Admin: 08/02/17 13:56 Dose: 100 mls/hr Lactobacillus Acidophilus (Bacid Acidophilus) 2 cap PO DAILY [facility] PRN Reason: Protocol Last Admin: 08/02/17 11:30 Dose: 2 cap Loratadine (Claritin) 10 mg PO DAILY [facility] PRN Reason: Protocol Last Admin: 08/02/17 11:00 Dose: 10 mg Multi-Ingredient Cream (Hydrocerin Cream) 0 ea TOP BID [facility] PRN Reason: Protocol Last Admin: 08/02/17 11:32 Dose: Not Given Mupirocin (Bactroban Ointment) 0 gm TOP BID [facility] PRN Reason: Protocol Last Admin: 08/02/17 11:31 Dose: Not Given Ondansetron HCl (Zofran Inj) 4 mg IVP Q6H PRN; Protocol PRN Reason: Nausea/Vomiting Last Admin: 08/01/17 18:18 Dose: 4 mg Oxycodone HCl (Oxycontin Extended Release Tab) 30 mg PO 0600,1800 [facility] Stop: 08/03/17 18:01 Last Admin: 08/02/17 05:35 Dose: 30 mg Polyethylene Glycol (Miralax) 17 gm PO DAILY [facility] PRN Reason: Protocol Last Admin: 08/02/17 11:00 Dose: 17 gm Potassium Chloride (Klor-Con 10) 10 meq PO BRK [facility] Last Admin: 08/02/17 09:00 Dose: 10 meq Tramadol HCl (Ultram) 50 mg PO 0000,0600,1200,1800 [facility] PRN Reason: Protocol Last Admin: 08/02/17 11:35 Dose: 50 mg - Labs Labs: 08/02/17 06:40 08/02/17 06:40 - Constitutional Appears: Well, Non-toxic, No Acute Distress - Extremities Exam Additional comments: Bilateral lower extremity focused examination: Dressings clean dry and intact with no strikethrough note today to B/L dressings Vasc: DP/PT pulses faintly palpable 1/4 B/L. CFT < 3 seconds to all digits. Temperature runs warm to cool proximal to distal, within normal limits. +1 pitting edema noted B/L, improving since admission Derm: Distal 2/3 of legs and heels with cellulitic skin changes, R worse than L. Erythema resolving since admission. Plantar xerosis noted to bilateral feet with stage 1 erythematous pressure ulceration noted to R heel. Lateral aspect of left leg exhibits superficial ulceration with mixed fibrogranular base - no malodor, fluctuance, tunneling, purulence, undermining or active drainage. Proximal lateral exhibits superficial weeping ulceration with fibrogranular base - no malodor, tunneling or undermining. No active drainage- serosanguinous strikethrough noted on previous dressing Neuro: Diminished protective sensation B/L Ortho: Mild tenderness to palpation of right leg, decreased compared to previous visits. Left leg exhibits localized tenderness at superficial lateral ulceration. Lower leg and pedal muscle strength is graded 5/5. No limitation to range of motion. - Neurological Exam Neurological Exam: Alert, Awake, Oriented x3 - Psychiatric Exam Psychiatric exam: Normal Affect, Normal Mood Assessment and Plan - Assessment and Plan (Free Text) Assessment: 62 year old female with bilateral cellulitis and lateral left leg superficial ulceration Plan: Pt seen and evaluated at bedside Discussed with attending Dr. Martínez Chart, labs, and vitals reviewed. WBC 4.5; afebrile Wound culture of L leg positive for Klebsiella, MRSA Continue Aztreonam, Vancomycin as per ID Venous duplex (-) for DVT Arterial doppler studies - normal DANIEL/PVR values at rest Cleansed lower legs with sterile saline and dressed ulcerations with bactroban, Adaptic, ABD and DSD and bilateral heels with Optifoam Hydrocerin cream applied to bilateral plantar feet and heels Offloading boots bedside - to be applied to LE at all times in bed Podiatry will continue to follow patient while in house <Jose Guadalupe Martínez - Last Filed: 08/02/17 14:59> Objective - Vital Signs/Intake and Output Vital Signs (last 24 hours): Temp Pulse Resp BP Pulse Ox 97.8 F 85 18 121/77 97 08/01/17 17:36 08/01/17 17:36 08/01/17 17:36 08/02/17 11:00 08/01/17 17:36 Intake and Output: 08/02/17 08/02/17 06:59 18:59 Intake Total 360 Balance 360 - Medications Medications: Current Medications Acetaminophen (Tylenol 325mg Tab) 650 mg PO Q4H PRN; Protocol PRN Reason: pain/fever Bisacodyl (Dulcolax) 10 mg RC DAILY PRN PRN Reason: Constipation Last Admin: 07/30/17 17:20 Dose: 10 mg Buspirone HCl (Buspar) 5 mg PO HS [facility] PRN Reason: Protocol Last Admin: 08/01/17 22:04 Dose: 5 mg Citalopram Hydrobromide (Celexa) 20 mg PO HS [facility] Last Admin: 08/01/17 22:04 Dose: 20 mg Desoximetasone (Topicort 0.25%) 0 ea TOP BID [facility] PRN Reason: Protocol Last Admin: 08/02/17 11:33 Dose: Not Given Furosemide (Lasix) 20 mg IVP DAILY [facility] PRN Reason: Protocol Last Admin: 08/02/17 11:00 Dose: 20 mg Home Med (Home Med) 1 unit PO BID [facility] Last Admin: 08/02/17 11:00 Dose: 1 unit Home Med (Home Med) 1 unit PO 0700 [facility] Vancomycin HCl (Vancomycin 1gm) 1 gm in 250 mls @ 167 mls/hr IVPB 0600,1800 [facility] PRN Reason: Protocol Last Admin: 08/02/17 05:36 Dose: 167 mls/hr Aztreonam (Azactam 1 Gm) 100 mls @ 100 mls/hr IV Q8 [facility] PRN Reason: Protocol Stop: 08/06/17 06:01 Last Admin: 08/02/17 13:56 Dose: 100 mls/hr Lactobacillus Acidophilus (Bacid Acidophilus) 2 cap PO DAILY [facility] PRN Reason: Protocol Last Admin: 08/02/17 11:30 Dose: 2 cap Loratadine (Claritin) 10 mg PO DAILY [facility] PRN Reason: Protocol Last Admin: 08/02/17 11:00 Dose: 10 mg Multi-Ingredient Cream (Hydrocerin Cream) 0 ea TOP BID [facility] PRN Reason: Protocol Last Admin: 08/02/17 11:32 Dose: Not Given Mupirocin (Bactroban Ointment) 0 gm TOP BID [facility] PRN Reason: Protocol Last Admin: 08/02/17 11:31 Dose: Not Given Ondansetron HCl (Zofran Inj) 4 mg IVP Q6H PRN; Protocol PRN Reason: Nausea/Vomiting Last Admin: 08/02/17 14:46 Dose: 4 mg Oxycodone HCl (Oxycontin Extended Release Tab) 30 mg PO 0600,1800 [facility] Stop: 08/03/17 18:01 Last Admin: 08/02/17 05:35 Dose: 30 mg Polyethylene Glycol (Miralax) 17 gm PO DAILY [facility] PRN Reason: Protocol Last Admin: 08/02/17 11:00 Dose: 17 gm Potassium Chloride (Klor-Con 10) 10 meq PO BRK [facility] Last Admin: 08/02/17 09:00 Dose: 10 meq Tramadol HCl (Ultram) 50 mg PO 0000,0600,1200,1800 [facility] PRN Reason: Protocol Last Admin: 08/02/17 11:35 Dose: 50 mg - Labs Labs: 08/02/17 06:40 08/02/17 06:40 Attending/Attestation - Attestation I have personally seen and examined this patient.: Yes I have fully participated in the care of the patient.: Yes I have reviewed all pertinent clinical information, including history, physical exam and plan: Yes
--- NOTE | 2017-08-02 16:45 | PN ---
DATE: SUBJECTIVE: The patient is 62-year-old, seen and examined, lying in bed, seems to be comfortable, complained of bilateral leg swelling. Right leg has watery discharge. PHYSICAL EXAMINATION: VITAL SIGNS: The patient is afebrile, pulse 85, respirations 18, blood pressure 100/94. LUNGS: Bilateral good airflow. No rhonchi or crackles. HEART: S1 and S2 audible. ABDOMEN: Soft, nontender. No rebound. No guarding. NEUROLOGICAL: She is awake, alert, oriented, communicate. EXTREMITIES: Bilateral legs, +2 edema. LABORATORY DATA: WBC 4.5, hemoglobin 10.4, hematocrit 31.7, platelet 177. Chemistry: Sodium 139, potassium 3.9, chloride 109, CO2 of 25, BUN 18, creatinine 0.6, blood sugar of 76. Vanco 14.7. ASSESSMENT: 1. Bilateral leg edema. 2. Chronic anemia. 3. Hypoalbuminemia. 4. Multiple sclerosis. 5. Deconditioning and difficulty walking. 6. Bilateral leg ulcers. 7. Bilateral foot ulcers. 8. Klebsiella pneumoniae and methicillin-resistant Staphylococcus aureus leg wound infection. PLAN: Currently, the patient is on Azactam as recommended by ID. Local wound is being cared by Dr. Puckett's team. We will continue her on current medication. She is on vancomycin and Azactam for now. Rad Onofre MD
[2017-08-03] MEDS: Aztreonam 1 Gm in NS 100mL 100 ML IV SCH ×3 (05:11→22:10)
[2017-08-03] MEDS: Vancomycin 1gm in NS 250ml 1 GM/250 ML BAG IVPB SCH ×2 (05:11→17:15)
[2017-08-03] MEDS: oxyCODONE 10 mg ER Tab (oxyCONTIN) PO SCH ×2 (05:12→17:15)
[2017-08-03] MEDS: AMPHETAMINE PO SCH (06:43)
[2017-08-03] MEDS: DEXTROAMPHETAMINE PO SCH (06:43)
[2017-08-03] MEDS: Potassium Chloride 10 mEq ER Tab PO SCH (08:45)
[2017-08-03] MEDS: Desoximetasone 0.25% Cream(15 gm) TOP SCH ×2 (11:00→17:16)
[2017-08-03] MEDS: Hydrocerin(120 gm) TOP SCH ×2 (11:00→17:16)
[2017-08-03] MEDS: BIOTIN 10000 MCG PO SCH ×2 (11:21→17:17)
[2017-08-03] MEDS: Lactobacillus Acidophilus 500 MU Cap PO SCH (11:22)
[2017-08-03] MEDS: POLYETHYLENE GLYCOL 3350 17 GM/Dose PACKET PO SCH (11:25)
--- NOTE | 2017-08-03 14:05 | CP.PCM.PN ---
Subjective - Date & Time of Evaluation Date of Evaluation: 08/03/17 Time of Evaluation: 11:10 - Subjective Subjective: Comfortable, no fevers, not in distress. Objective - Vital Signs/Intake and Output Vital Signs (last 24 hours): Temp Pulse Resp BP Pulse Ox 97.6 F 91 H 18 115/83 98 08/02/17 17:53 08/02/17 17:53 08/02/17 17:53 08/02/17 17:53 08/02/17 17:53 - Medications Medications: Current Medications Acetaminophen (Tylenol 325mg Tab) 650 mg PO Q4H PRN; Protocol PRN Reason: pain/fever Bisacodyl (Dulcolax) 10 mg RC DAILY PRN PRN Reason: Constipation Last Admin: 07/30/17 17:20 Dose: 10 mg Buspirone HCl (Buspar) 5 mg PO HS [facility] PRN Reason: Protocol Last Admin: 08/02/17 21:35 Dose: 5 mg Citalopram Hydrobromide (Celexa) 20 mg PO HS [facility] Last Admin: 08/02/17 21:35 Dose: 20 mg Desoximetasone (Topicort 0.25%) 0 ea TOP BID [facility] PRN Reason: Protocol Last Admin: 08/02/17 18:43 Dose: Not Given Furosemide (Lasix) 20 mg IVP DAILY [facility] PRN Reason: Protocol Last Admin: 08/02/17 11:00 Dose: 20 mg Home Med (Home Med) 1 unit PO BID [facility] Last Admin: 08/02/17 18:41 Dose: 1 unit Home Med (Home Med) 1 unit PO 0700 [facility] Last Admin: 08/03/17 06:43 Dose: 1 unit Vancomycin HCl (Vancomycin 1gm) 1 gm in 250 mls @ 167 mls/hr IVPB 0600,1800 [facility] PRN Reason: Protocol Last Admin: 08/03/17 05:11 Dose: 167 mls/hr Aztreonam (Azactam 1 Gm) 100 mls @ 100 mls/hr IV Q8 [facility] PRN Reason: Protocol Stop: 08/06/17 06:01 Last Admin: 08/03/17 05:11 Dose: 100 mls/hr Lactobacillus Acidophilus (Bacid Acidophilus) 2 cap PO DAILY [facility] PRN Reason: Protocol Last Admin: 02/06/18 11:30 Dose: 2 cap Loratadine (Claritin) 10 mg PO DAILY [facility] PRN Reason: Protocol Last Admin: 08/02/17 11:00 Dose: 10 mg Multi-Ingredient Cream (Hydrocerin Cream) 0 ea TOP BID [facility] PRN Reason: Protocol Last Admin: 08/02/17 18:42 Dose: Not Given Mupirocin (Bactroban Ointment) 0 gm TOP BID [facility] PRN Reason: Protocol Last Admin: 08/02/17 18:41 Dose: Not Given Ondansetron HCl (Zofran Inj) 4 mg IVP Q6H PRN; Protocol PRN Reason: Nausea/Vomiting Last Admin: 08/02/17 14:46 Dose: 4 mg Oxycodone HCl (Oxycontin Extended Release Tab) 30 mg PO 0600,1800 [facility] Stop: 08/03/17 18:01 Last Admin: 08/03/17 05:12 Dose: 30 mg Polyethylene Glycol (Miralax) 17 gm PO DAILY [facility] PRN Reason: Protocol Last Admin: 08/02/17 11:00 Dose: 17 gm Potassium Chloride (Klor-Con 10) 10 meq PO BRK [facility] Last Admin: 08/03/17 08:45 Dose: 10 meq Tramadol HCl (Ultram) 50 mg PO 0000,0600,1200,1800 [facility] PRN Reason: Protocol Last Admin: 08/03/17 05:12 Dose: 50 mg - Labs Labs: 08/02/17 06:40 08/02/17 06:40 - Constitutional Appears: Non-toxic - Head Exam Head Exam: NORMAL INSPECTION - ENT Exam ENT Exam: Mucous Membranes Moist - Neck Exam Neck Exam: absent: Meningismus - Respiratory Exam Respiratory Exam: Decreased Breath Sounds - Cardiovascular Exam Cardiovascular Exam: +S1, +S2 - GI/Abdominal Exam GI & Abdominal Exam: Soft. absent: Tenderness Assessment and Plan - Assessment and Plan (Free Text) Plan: Assessment bilateral lower extremity skin and skin structure infection with MRSA and Klebsiella chronic anemia HTN multiple sclerosis sarcoidosis history of pancreatitis S/P left ureteral stent Plan continue Vanco and Aztreonam day 10 to complete 10 days - will d/c after today will continue to monitor clinically
--- NOTE | 2017-08-03 16:42 | CP.PCM.PN ---
<Myriam Borges - Last Filed: 08/03/17 16:38> Subjective - Date & Time of Evaluation Date of Evaluation: 08/03/17 Time of Evaluation: 16:39 - Subjective Subjective: 62 y/o female seen resting in chair for bilateral lower leg cellulitis with right leg superficial weeping ulceration. Patient is AAOx3 and is in NAD. Denies of any acute overnight events. Bandages remain intact to both lower extremities. Denies F/C/N/V/CP/SOB. No other pedal complains at this time. Objective - Vital Signs/Intake and Output Vital Signs (last 24 hours): Temp Pulse Resp BP Pulse Ox 98.2 F 107 H 20 106/68 98 08/03/17 10:00 08/03/17 10:00 08/03/17 10:00 08/03/17 11:23 08/03/17 10:00 - Medications Medications: Current Medications Acetaminophen (Tylenol 325mg Tab) 650 mg PO Q4H PRN; Protocol PRN Reason: pain/fever Bisacodyl (Dulcolax) 10 mg RC DAILY PRN PRN Reason: Constipation Last Admin: 07/30/17 17:20 Dose: 10 mg Buspirone HCl (Buspar) 5 mg PO HS [facility] PRN Reason: Protocol Last Admin: 08/02/17 21:35 Dose: 5 mg Citalopram Hydrobromide (Celexa) 20 mg PO HS [facility] Last Admin: 08/02/17 21:35 Dose: 20 mg Desoximetasone (Topicort 0.25%) 0 ea TOP BID [facility] PRN Reason: Protocol Last Admin: 08/03/17 11:00 Dose: 1 applic Furosemide (Lasix) 20 mg IVP DAILY [facility] PRN Reason: Protocol Last Admin: 08/03/17 11:23 Dose: 20 mg Home Med (Home Med) 1 unit PO BID [facility] Last Admin: 08/03/17 11:21 Dose: 1 unit Home Med (Home Med) 1 unit PO 0700 [facility] Last Admin: 08/03/17 06:43 Dose: 1 unit Vancomycin HCl (Vancomycin 1gm) 1 gm in 250 mls @ 167 mls/hr IVPB 0600,1800 [facility] PRN Reason: Protocol Last Admin: 08/03/17 05:11 Dose: 167 mls/hr Aztreonam (Azactam 1 Gm) 100 mls @ 100 mls/hr IV Q8 [facility] PRN Reason: Protocol Stop: 08/06/17 06:01 Last Admin: 08/03/17 13:55 Dose: 100 mls/hr Lactobacillus Acidophilus (Bacid Acidophilus) 2 cap PO DAILY [facility] PRN Reason: Protocol Last Admin: 08/03/17 11:22 Dose: 2 cap Loratadine (Claritin) 10 mg PO DAILY [facility] PRN Reason: Protocol Last Admin: 08/03/17 11:21 Dose: 10 mg Multi-Ingredient Cream (Hydrocerin Cream) 0 ea TOP BID [facility] PRN Reason: Protocol Last Admin: 08/03/17 11:00 Dose: 1 applic Mupirocin (Bactroban Ointment) 0 gm TOP BID [facility] PRN Reason: Protocol Last Admin: 08/03/17 11:22 Dose: 1 applic Ondansetron HCl (Zofran Inj) 4 mg IVP Q6H PRN; Protocol PRN Reason: Nausea/Vomiting Last Admin: 08/03/17 11:33 Dose: 4 mg Oxycodone HCl (Oxycontin Extended Release Tab) 30 mg PO 0600,1800 [facility] Stop: 08/03/17 18:01 Last Admin: 08/03/17 05:12 Dose: 30 mg Polyethylene Glycol (Miralax) 17 gm PO DAILY [facility] PRN Reason: Protocol Last Admin: 08/03/17 11:25 Dose: 17 gm Potassium Chloride (Klor-Con 10) 10 meq PO BRK [facility] Last Admin: 08/03/17 08:45 Dose: 10 meq Tramadol HCl (Ultram) 50 mg PO 0000,0600,1200,1800 [facility] PRN Reason: Protocol Last Admin: 08/03/17 12:00 Dose: 50 mg - Labs Labs: 08/02/17 06:40 08/02/17 06:40 - Constitutional Appears: Well, Non-toxic, No Acute Distress - Extremities Exam Additional comments: Bilateral lower extremity focused examination: Dressings clean dry and intact with no strikethrough note today to B/L dressings Vasc: DP/PT pulses faintly palpable 1/4 B/L. CFT < 3 seconds to all digits. Temperature runs warm to cool proximal to distal, within normal limits. +1 pitting edema noted B/L, improving since admission Derm: Distal 2/3 of legs and heels with cellulitic skin changes, R worse than L. Erythema resolving since admission. Plantar xerosis noted to bilateral feet with stage 1 erythematous pressure ulceration noted to R heel. Lateral aspect of left leg exhibits superficial ulceration with mixed fibrogranular base - no malodor, fluctuance, tunneling, purulence, undermining or active drainage. Proximal lateral exhibits superficial weeping ulceration with fibrogranular base - no malodor, tunneling or undermining. No active drainage- serosanguinous strikethrough noted on previous dressing Neuro: Diminished protective sensation B/L Ortho: Mild tenderness to palpation of right leg, decreased compared to previous visits. Left leg exhibits localized tenderness at superficial lateral ulceration. Lower leg and pedal muscle strength is graded 5/5. No limitation to range of motion. - Neurological Exam Neurological Exam: Alert, Awake, Oriented x3 - Psychiatric Exam Psychiatric exam: Normal Affect, Normal Mood Assessment and Plan - Assessment and Plan (Free Text) Assessment: 62 year old female with bilateral cellulitis and lateral left leg superficial ulceration Plan: Pt seen and evaluated at bedside Discussed with attending Dr. Martínez Chart, labs, and vitals reviewed. WBC 4.5 as of yesterday; afebrile Wound culture of L leg positive for Klebsiella, MRSA Continue Aztreonam, Vancomycin as per ID Venous duplex (-) for DVT Arterial doppler studies - normal DANIEL/PVR values at rest Cleansed lower legs with sterile saline and dressed ulcerations with bactroban, Adaptic, ABD and DSD and bilateral heels with Optifoam Offloading boots bedside - to be applied to LE at all times in bed Podiatry will continue to follow patient while in house <Valerie Puckett - Last Filed: 08/08/17 14:55> Objective - Vital Signs/Intake and Output Vital Signs (last 24 hours): Temp Pulse Resp BP Pulse Ox 98.3 F 85 18 105/77 97 08/04/17 10:19 08/04/17 10:19 08/04/17 10:19 08/04/17 14:10 08/04/17 10:19 - Labs Labs: 08/02/17 06:40 08/02/17 06:40 Attending/Attestation - Attestation I have personally seen and examined this patient.: Yes I have fully participated in the care of the patient.: Yes I have reviewed all pertinent clinical information, including history, physical exam and plan: Yes
[2017-08-03 17:36] VITALS: O2SAT 97
--- NOTE | 2017-08-03 18:42 | PN ---
DATE: SUBJECTIVE: The patient is 62 years old, seen and examined, ambulatory, generalized weakness, bilateral leg swelling. No nausea or vomiting, no diarrhea. Eating and tolerating. PHYSICAL EXAMINATION: VITAL SIGNS: She is afebrile, pulse 91, respirations 18, blood pressure is 106/68. LUNGS: Bilateral fair airflow. No rhonchi or crackles. HEART: S1, S2 audible. ABDOMEN: Soft, nontender. No rebound, no guarding. NEUROLOGIC: Patient is awake, alert, oriented. Bilateral legs +2 edema. She still has generalized weakness, complains of feeling tired and arrangement is being made to send her to subacute rehab, most probably in [place]. ASSESSMENT: 1. Deconditioning and difficulty walking. 2. Sarcoidosis. 3. Multiple sclerosis. 4. Hypoalbuminemia. 5. Chronic anemia, status post blood transfusion. 6. Bilateral leg edema. PLAN: Awaiting subacute rehab . Rad Onofre MD
[2017-08-04] MEDS: Aztreonam 1 Gm in NS 100mL 100 ML IV SCH ×2 (05:45→14:09)
[2017-08-04] MEDS: Vancomycin 1gm in NS 250ml 1 GM/250 ML BAG IVPB SCH ×2 (05:47→17:07)
[2017-08-04] MEDS: DEXTROAMPHETAMINE PO SCH (06:12)
[2017-08-04] MEDS: AMPHETAMINE PO SCH (06:12)
[2017-08-04] MEDS: Potassium Chloride 10 mEq ER Tab PO SCH (08:10)
[2017-08-04] MEDS: Lactobacillus Acidophilus 500 MU Cap PO SCH (09:38)
[2017-08-04] MEDS: Desoximetasone 0.25% Cream(15 gm) TOP SCH ×2 (09:39→17:07)
[2017-08-04] MEDS: Hydrocerin(120 gm) TOP SCH ×2 (09:43→17:10)
[2017-08-04] MEDS: POLYETHYLENE GLYCOL 3350 17 GM/Dose PACKET PO SCH (09:44)
[2017-08-04 10:20] VITALS: BP 105/77; PULSE 85; RESP 18; TEMP 98.3
[2017-08-04] MEDS: BIOTIN 10000 MCG PO SCH ×2 (12:37→17:08)
--- NOTE | 2017-08-04 12:42 | CP.PCM.PN ---
<Myriam Borges - Last Filed: 08/04/17 12:37> Subjective - Date & Time of Evaluation Date of Evaluation: 08/04/17 Time of Evaluation: 12:37 - Subjective Subjective: 62 y/o female seen resting in chair for bilateral lower leg cellulitis with right leg superficial weeping ulceration. Patient is AAOx3 and is in NAD. Denies of any acute overnight events. Reports that she maybe going home today. Bandages remain intact to both lower extremities. Denies F/C/N/V/CP/SOB. No other pedal complains at this time. Objective - Vital Signs/Intake and Output Vital Signs (last 24 hours): Temp Pulse Resp BP Pulse Ox 98.3 F 85 18 105/77 97 08/04/17 10:19 08/04/17 10:19 08/04/17 10:19 08/04/17 10:19 08/04/17 10:19 Intake and Output: 08/04/17 08/04/17 06:59 18:59 Intake Total 340 Balance 340 - Medications Medications: Current Medications Acetaminophen (Tylenol 325mg Tab) 650 mg PO Q4H PRN; Protocol PRN Reason: pain/fever Bisacodyl (Dulcolax) 10 mg RC DAILY PRN PRN Reason: Constipation Last Admin: 07/30/17 17:20 Dose: 10 mg Buspirone HCl (Buspar) 5 mg PO HS [facility] PRN Reason: Protocol Last Admin: 08/03/17 22:11 Dose: 5 mg Citalopram Hydrobromide (Celexa) 20 mg PO HS [facility] Last Admin: 08/03/17 22:11 Dose: 20 mg Desoximetasone (Topicort 0.25%) 0 ea TOP BID [facility] PRN Reason: Protocol Last Admin: 08/04/17 09:39 Dose: 1 applic Furosemide (Lasix) 20 mg IVP DAILY [facility] PRN Reason: Protocol Last Admin: 08/03/17 11:23 Dose: 20 mg Home Med (Home Med) 1 unit PO BID [facility] Last Admin: 08/03/17 17:17 Dose: 1 unit Home Med (Home Med) 1 unit PO 0700 [facility] Last Admin: 08/04/17 06:12 Dose: 1 unit Vancomycin HCl (Vancomycin 1gm) 1 gm in 250 mls @ 167 mls/hr IVPB 0600,1800 [facility] PRN Reason: Protocol Last Admin: 08/04/17 05:47 Dose: 167 mls/hr Aztreonam (Azactam 1 Gm) 100 mls @ 100 mls/hr IV Q8 [facility] PRN Reason: Protocol Stop: 08/06/17 06:01 Last Admin: 08/04/17 05:45 Dose: 100 mls/hr Lactobacillus Acidophilus (Bacid Acidophilus) 2 cap PO DAILY [facility] PRN Reason: Protocol Last Admin: 08/04/17 09:38 Dose: 2 cap Loratadine (Claritin) 10 mg PO DAILY [facility] PRN Reason: Protocol Last Admin: 08/04/17 09:42 Dose: 10 mg Multi-Ingredient Cream (Hydrocerin Cream) 0 ea TOP BID [facility] PRN Reason: Protocol Last Admin: 08/04/17 09:43 Dose: Not Given Mupirocin (Bactroban Ointment) 0 gm TOP BID [facility] PRN Reason: Protocol Last Admin: 08/04/17 09:42 Dose: 1 applic Ondansetron HCl (Zofran Inj) 4 mg IVP Q6H PRN; Protocol PRN Reason: Nausea/Vomiting Last Admin: 08/03/17 11:33 Dose: 4 mg Polyethylene Glycol (Miralax) 17 gm PO DAILY [facility] PRN Reason: Protocol Last Admin: 08/04/17 09:44 Dose: 17 gm Potassium Chloride (Klor-Con 10) 10 meq PO BRK [facility] Last Admin: 08/04/17 08:10 Dose: 10 meq Tramadol HCl (Ultram) 50 mg PO 0000,0600,1200,1800 [facility] PRN Reason: Protocol Last Admin: 08/04/17 11:32 Dose: 50 mg - Labs Labs: 08/02/17 06:40 08/02/17 06:40 - Constitutional Appears: Well, Non-toxic, No Acute Distress - Extremities Exam Additional comments: Bilateral lower extremity focused examination: Dressings clean dry and intact with no strikethrough note today to B/L dressings Vasc: DP/PT pulses faintly palpable 1/4 B/L. CFT < 3 seconds to all digits. Temperature runs warm to cool proximal to distal, within normal limits. +1 pitting edema noted B/L, improving since admission Derm: Distal 2/3 of legs and heels with cellulitic skin changes, L worse than R. Erythema resolving since admission on the right. Plantar xerosis noted to bilateral feet with stage 1 erythematous pressure ulceration noted to R heel. Lateral aspect of left leg exhibits superficial ulceration with mixed fibrogranular base - no malodor, fluctuance, tunneling, purulence, undermining or active drainage. Proximal lateral exhibits superficial weeping ulceration with fibrogranular base - no malodor, tunneling or undermining. No active drainage- serosanguinous strikethrough noted on previous dressing Neuro: Diminished protective sensation B/L Ortho: Mild tenderness to palpation of right leg, decreased compared to previous visits. Left leg exhibits localized tenderness at superficial lateral ulceration. Lower leg and pedal muscle strength is graded 5/5. No limitation to range of motion. - Neurological Exam Neurological Exam: Alert, Awake, Oriented x3 - Psychiatric Exam Psychiatric exam: Normal Affect, Normal Mood Assessment and Plan - Assessment and Plan (Free Text) Assessment: 62 year old female with bilateral cellulitis and lateral left leg superficial ulceration Plan: Pt seen and evaluated at bedside Discussed with attending Dr. Martínez Chart, labs, and vitals reviewed. WBC 4.5 as of 08/02; afebrile Wound culture of L leg positive for Klebsiella, MRSA Continue Aztreonam, Vancomycin as per ID Venous duplex (-) for DVT Arterial doppler studies - normal DANIEL/PVR values at rest Cleansed lower legs with sterile saline and dressed ulcerations with maxorb, DSD and hydroserine cream applied to heel bilaterally Tubigrip applied to bilateral LE Offloading boots bedside - to be applied to LE at all times in bed Patient is stable from podiatry standpoint - follow up in the wound care center with Dr. Puckett/Dr. Martínez once discharged Podiatry will continue to follow patient while in house <Valerie Puckett - Last Filed: 08/08/17 14:57> Objective - Vital Signs/Intake and Output Vital Signs (last 24 hours): Temp Pulse Resp BP Pulse Ox 98.3 F 85 18 105/77 97 08/04/17 10:19 08/04/17 10:19 08/04/17 10:19 08/04/17 14:10 08/04/17 10:19 - Labs Labs: 08/02/17 06:40 08/02/17 06:40 Attending/Attestation - Attestation I have personally seen and examined this patient.: Yes I have fully participated in the care of the patient.: Yes I have reviewed all pertinent clinical information, including history, physical exam and plan: Yes
[2017-08-04] MEDS ORDERED: oxyCODONE 10 mg ER Tab (oxyCONTIN) PO ONE (13:03)
--- NOTE | 2017-08-04 20:07 | CP.PCM.PN ---
Subjective - Date & Time of Evaluation Date of Evaluation: 08/04/17 Time of Evaluation: 11:05 - Subjective Subjective: Comfortable, no fevers. Objective - Vital Signs/Intake and Output Vital Signs (last 24 hours): Temp Pulse Resp BP Pulse Ox 98.3 F 85 18 105/77 97 08/04/17 10:19 08/04/17 10:19 08/04/17 10:19 08/04/17 14:10 08/04/17 10:19 - Medications Medications: Current Medications Acetaminophen (Tylenol 325mg Tab) 650 mg PO Q4H PRN; Protocol PRN Reason: pain/fever Bisacodyl (Dulcolax) 10 mg RC DAILY PRN PRN Reason: Constipation Last Admin: 07/30/17 17:20 Dose: 10 mg Buspirone HCl (Buspar) 5 mg PO HS [facility] PRN Reason: Protocol Last Admin: 08/03/17 22:11 Dose: 5 mg Citalopram Hydrobromide (Celexa) 20 mg PO HS [facility] Last Admin: 08/03/17 22:11 Dose: 20 mg Desoximetasone (Topicort 0.25%) 0 ea TOP BID [facility] PRN Reason: Protocol Last Admin: 08/04/17 17:07 Dose: 1 applic Furosemide (Lasix) 20 mg IVP DAILY [facility] PRN Reason: Protocol Last Admin: 08/04/17 14:10 Dose: 20 mg Home Med (Home Med) 1 unit PO BID [facility] Last Admin: 08/04/17 17:08 Dose: 1 unit Home Med (Home Med) 1 unit PO 0700 [facility] Last Admin: 08/04/17 06:12 Dose: 1 unit Vancomycin HCl (Vancomycin 1gm) 1 gm in 250 mls @ 167 mls/hr IVPB 0600,1800 [facility] PRN Reason: Protocol Last Admin: 08/04/17 17:07 Dose: 167 mls/hr Aztreonam (Azactam 1 Gm) 100 mls @ 100 mls/hr IV Q8 [facility] PRN Reason: Protocol Stop: 08/06/17 06:01 Last Admin: 08/04/17 14:09 Dose: 100 mls/hr Lactobacillus Acidophilus (Bacid Acidophilus) 2 cap PO DAILY [facility] PRN Reason: Protocol Last Admin: 08/04/17 09:38 Dose: 2 cap Loratadine (Claritin) 10 mg PO DAILY [facility] PRN Reason: Protocol Last Admin: 08/04/17 09:42 Dose: 10 mg Multi-Ingredient Cream (Hydrocerin Cream) 0 ea TOP BID [facility] PRN Reason: Protocol Last Admin: 08/04/17 17:10 Dose: 1 applic Mupirocin (Bactroban Ointment) 0 gm TOP BID [facility] PRN Reason: Protocol Last Admin: 08/04/17 17:09 Dose: 1 applic Ondansetron HCl (Zofran Inj) 4 mg IVP Q6H PRN; Protocol PRN Reason: Nausea/Vomiting Last Admin: 08/04/17 14:12 Dose: 4 mg Polyethylene Glycol (Miralax) 17 gm PO DAILY [facility] PRN Reason: Protocol Last Admin: 08/04/17 09:44 Dose: 17 gm Potassium Chloride (Klor-Con 10) 10 meq PO BRK [facility] Last Admin: 08/04/17 08:10 Dose: 10 meq Tramadol HCl (Ultram) 50 mg PO 0000,0600,1200,1800 [facility] PRN Reason: Protocol Last Admin: 08/04/17 11:32 Dose: 50 mg - Labs Labs: 08/02/17 06:40 08/02/17 06:40 - Constitutional Appears: Non-toxic - Head Exam Head Exam: NORMAL INSPECTION - Respiratory Exam Respiratory Exam: Decreased Breath Sounds - Cardiovascular Exam Cardiovascular Exam: +S1, +S2 - GI/Abdominal Exam GI & Abdominal Exam: Soft. absent: Tenderness Assessment and Plan - Assessment and Plan (Free Text) Plan: Assessment S/P bilateral lower extremity skin and skin structure infection with MRSA and Klebsiella chronic anemia HTN multiple sclerosis sarcoidosis history of pancreatitis S/P left ureteral stent Plan S/P 10 days of Vanco and Aztreonam - will continue to monitor clinically off antibiotics since she is at risk for infection
--- NOTE | 2017-08-05 12:41 | DS ---
HISTORY OF PRESENT ILLNESS: Patient is 62-year-old, seen and examined. Patient was admitted because of increasing leg swelling, her both legs were weeping and fluid coming out, had developed ulcer. Culture showed Klebsiella pneumoniae and MRSA, was treated with Cipro and received two blood transfusions, was deconditioned, so transferred to TCU for rehab and completion of course of antibiotics and wound care. Patient's stay was uneventful, received her antibiotics and physical therapy. Has been doing well. Still has generalized weakness and difficulty walking, but is being scheduled to be discharged today. PHYSICAL EXAMINATION GENERAL: She is awake, alert, oriented, communicative. VITAL SIGNS: She is afebrile, pulse 85, respirations 18, blood pressure 105/77. LUNGS: Bilateral fair airflow. No rhonchi or crackles. HEART: S1 and S2, audible. ABDOMEN: Soft, nontender. No rebound. No guarding. NEUROLOGIC: Patient is awake and alert, able to communicate, ambulate. ASSESSMENT AND PLAN 1. Bilateral leg edema. 2. Hypoalbuminemia. 3. History of sarcoidosis. 4. Multiple sclerosis. 5. Chronic degenerative disk disease. 6. Left nephrolithiasis, status post lithotripsy followed by stent placement and that was later on removed. 7. Bilateral ulcer, seems to be improving. PLAN: Patient is being discharged home today. She is advised to take Lasix regularly. She is advised to keep the supportive stockings on, keep her leg elevated and she can resume all her medication prior to admission, she finished her course of antibiotics, there is no need for antibiotic. Rad Onofre MD
== END 2017-08-04 22:00 | disposition home or self-care (01) | DRG 945 ==
LOC: TRCU 19:24
PROVIDERS: ADMIT Internal Medicine; ATTEND Internal Medicine
PROC: F08Z1FZ Dressing Techniques Treatment using Assistive, Adaptive, Supportive or Protective Equipment (ICD-10-PCS; 2017-07-30)
PROC: F07Z9FZ Gait Training/Functional Ambulation Treatment using Assistive, Adaptive, Supportive or Protective Equipment (ICD-10-PCS; principal; 2017-07-31)
PROC: F07L6YZ Therapeutic Exercise Treatment of Musculoskeletal System - Lower Back / Lower Extremity using Other Equipment (ICD-10-PCS; 2017-07-31)
DX: R53.1 Weakness (principal); L03.115 Cellulitis of right lower limb; E88.09 Other disorders of plasma-protein metabolism, not elsewhere classified; L03.116 Cellulitis of left lower limb; L97.519 Non-pressure chronic ulcer of other part of right foot with unspecified severity; L97.529 Non-pressure chronic ulcer of other part of left foot with unspecified severity; R26.2 Difficulty in walking, not elsewhere classified; B96.1 Klebsiella pneumoniae [K. pneumoniae] as the cause of diseases classified elsewhere; B95.62 Methicillin resistant Staphylococcus aureus infection as the cause of diseases classified elsewhere; D64.9 Anemia, unspecified; G35 Multiple sclerosis; N18.9 Chronic kidney disease, unspecified; I12.9 Hypertensive chronic kidney disease with stage 1 through stage 4 chronic kidney disease, or unspecified chronic kidney disease; F32.9 Major depressive disorder, single episode, unspecified; D72.819 Decreased white blood cell count, unspecified; D86.9 Sarcoidosis, unspecified; Z88.0 Allergy status to penicillin; Z88.2 Allergy status to sulfonamides; Z87.891 Personal history of nicotine dependence; Z87.442 Personal history of urinary calculi

== ENCOUNTER 2017-09-11 02:00 | Inpatient (IN) | payer MEDICARE, OTHER ==
[2017-09-11 02:05] VITALS: BMI 21.2
--- NOTE | 2017-09-11 02:22 | ED PDOC ---
Arrival/HPI - General Chief Complaint: Abnormal Labs Time Seen by Provider: 09/11/17 02:01 Historian: Patient - History of Present Illness Narrative History of Present Illness (Text): 09/11/17 02:18 62 year old female, with past medical history of anemia, hypertension, multiple sclerosis, sarcoidosis, pancreatitis, and left ureteral stent, presents to Emergency department complaining of generalized weakness for several days and lower extremity swelling. The patient was advised to come into the emergency department by her PMD for a blood transfusion. The patient denies fevers, chills , headache, dizziness, chest pain, shortness of breath, dyspnea on exertion, cough, abdominal pain, nausea, vomiting, diarrhea, back pain, neck pain, urinary /bowel changes, or any other complaint. PMD: Dr. Onofre Time/Duration: Other (Few Days) Symptom Onset: Sudden Symptom Course: Unchanged Activities at Onset: Rest, Light Context: Home Past Medical History - Provider Review Nursing Documentation Reviewed: Yes - Infectious Disease Hx of Infectious Diseases: None - Cardiac Hx Pacemaker: No - Pulmonary Hx Respiratory Disorders: Yes (SMOKED CIGARETTES QUIT 40 YRS. 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 - Renal Hx Renal Disorder: Yes (L KIDNEY CYST,H/O LITHOTRYPSIES) Hx Kidney Stones: Yes - Endocrine/Metabolic Hx Endocrine Disorders: No Hx Hyperthyroidism: Yes - Hematological/Oncological Hx Cancer: No - Integumentary Hx Dermatological Disorder: Yes Other/Comment: 06-09-17 BILATERAL LE GROSS EDEMA,PITTING +4.THICK TO HIN FLAKY SKIN. HAS ANASARCA. EDEMA TO LEFT ARM WITH SOME BRUISED AREA. - Musculoskeletal/Rheumatological Hx Falls: Yes - Gastrointestinal Hx Gastrointestinal Disorders: Yes - Genitourinary/Gynecological Hx Genitourinary Disorders: Yes (nephrolithiasis) Hx Reproductive Disorders: No - Psychiatric Hx Emotional Abuse: No Hx Physical Abuse: No Hx Substance Use: No - Surgical History Hx Mastectomy: No - Anesthesia Hx Anesthesia Reactions: No Hx Malignant Hyperthermia: No - Suicidal Assessment Feels Threatened In Home Enviroment: No Family/Social History - Physician Review Nursing Documentation Reviewed: Yes Family/Social History: No Known Family HX Smoking Status: Former Smoker Hx Alcohol Use: No Hx Substance Use: No Allergies/Home Meds Allergies/Adverse Reactions: Allergies black pepper Allergy (Verified 07/27/17 20:05) ITCHING codeine Allergy (Verified 07/27/17 20:05) NAUSEA Patient states that it was due to tylenol with codeine. Patient takes codeine and percocets at home. Penicillins Allergy (Verified 07/27/17 20:05) SWELLING Sulfa (Sulfonamide Antibiotics) Allergy (Verified 07/27/17 20:05) RASH Home Medications: Home Meds Medication Instructions Recorded Confirmed Biotin 10,000 mcg PO DAILY 07/22/17 09/11/17 Cholecalciferol (Vitamin D3) 5,000 unit PO QWK 07/22/17 09/11/17 [Vitamin D3] Citalopram Hydrobromide [Celexa] 20 mg PO DAILY 07/22/17 09/11/17 Dextroamphetamine/Amphetamine 20 mg PO DAILY 07/22/17 09/11/17 [Adderall 20 mg Tablet] Gabapentin [Neurontin] 1 - 2 tab PO HS 07/22/17 09/11/17 Lactobacillus Acidophilus [Bacid 2 cap PO DAILY 07/22/17 09/11/17 Acidophilus] Loratadine [Claritin] 10 mg PO DAILY PRN 07/22/17 09/11/17 Meloxicam [Mobic] 7.5 mg PO DAILY 07/22/17 09/11/17 Oxycodone HCl/Acetaminophen 1 each PO Q6 PRN 07/22/17 09/11/17 [Percocet 10-325 mg Tablet] Polyethylene Glycol 3350 [Miralax] 17 gm PO QWK 07/22/17 09/11/17 Potassium Chloride [Klor-Con 10 meq PO DAILY 07/22/17 09/11/17 Sprinkle] Torsemide [Demadex] 20 mg PO DAILY PRN 07/22/17 09/11/17 busPIRone [Buspar] 5 mg PO BID 07/22/17 09/11/17 oxyCODONE [oxyCONTIN Extended 1 - 2 tab PO Q12 PRN 07/22/17 09/11/17 Release Tab] Review of Systems - Physician Review All systems were reviewed & negative as marked: Yes - Review of Systems Constitutional: Other (Generalized weakness). absent: Fevers, Night Sweats Respiratory: absent: SOB, Cough Cardiovascular: absent: Chest Pain, TALAVERA Gastrointestinal: absent: Abdominal Pain, Stool Changes, Diarrhea, Nausea, Vomiting Genitourinary Female: absent: Urine Output Changes Musculoskeletal: Other (Lower extremity swelling.). absent: Back Pain, Neck Pain Neurological: absent: Headache, Dizziness Physical Exam Vital Signs Reviewed: Yes Vital Signs Temp Pulse Resp BP Pulse Ox 09/11/17 08:48 97.8 F 71 18 110/63 97 09/11/17 08:47 97.8 F 71 18 110/63 09/11/17 07:50 97.5 F L 85 18 96/59 L 09/11/17 07:09 97.5 F L 85 18 96/59 L 98 09/11/17 06:51 97.3 F L 61 17 109/70 09/11/17 06:32 97.6 F 67 17 93/62 L 99 09/11/17 06:06 97.5 F L 65 17 97/47 L 09/11/17 05:45 97.5 F L 68 19 88/47 L 09/11/17 03:54 68 18 99/69 L 99 09/11/17 02:09 88 18 93/65 L 97 Temperature: Afebrile Blood Pressure: Hypotensive Pulse: Regular Respiratory Rate: Normal Appearance: Positive for: Cachectic Pain Distress: None Mental Status: Positive for: Alert and Oriented X 3 - Systems Exam Head: Present: Atraumatic, Normocephalic Pupils: Present: PERRL Extroacular Muscles: Present: EOMI Conjunctiva: Present: Normal Mouth: Present: Moist Mucous Membranes Neck: Present: Normal Range of Motion Respiratory/Chest: Present: Clear to Auscultation, Good Air Exchange. No: Respiratory Distress, Accessory Muscle Use Cardiovascular: Present: Regular Rate and Rhythm, Normal S1, S2. No: Murmurs Abdomen: Present: Normal Bowel Sounds. No: Tenderness, Distention, Peritoneal Signs Back: Present: Normal Inspection Upper Extremity: Present: Normal Inspection. No: Cyanosis, Edema Lower Extremity: Present: Normal Inspection. No: Edema Neurological: Present: GCS=15, CN II-XII Intact, Speech Normal Skin: Present: Warm, Dry, Normal Color. No: Rashes Psychiatric: Present: Alert, Oriented x 3, Normal Insight, Normal Concentration Medical Decision Making ED Course and Treatment: 09/11/17 02:22 Impression: A 62 year old female presents to the emergency department complaining of generalized weakness and lower extremity swelling. Patient was advised by her PMD to come to the emergency department to receive a blood transfusion. Plan: -- EKG -- Neck Soft Tissue CT -- Chest X-ray -- Labs -- IV Fluids -- Reassess and disposition Prior Visits: Notes and results from previous visits were reviewed. Patient was last seen in the emergency department on 07/24/17. The patient was seen in the emergency department for a complaint of generalized weakness. The patient was hospitalized. Progress Notes: EKG: Ordered, reviewed, and independently interpreted the EKG. Rate : 73 BPM Rhythm : NSR Interpretation : Non- specific changes. 09/11/17 03:07: Chest X-ray read and interpreted by me shows no active disease. case d.\w dr rodriguez accepts case CT Neck Without Intravenous Contrast Dictated and Authenticated by: Brii Melendez MD 09/11/2017 4:21 AM Eastern Time ([place] & [place]) IMPRESSION: No acute abnormality. 09/16/17 09:44 - Lab Interpretations Lab Results: 09/12/17 06:30 09/11/17 02:25 Lab Results 09/12/17 06:30: WBC 4.9 D, RBC 4.25, Hgb 13.4 D, Hct 38.5, MCV 90.6 D, MCH 31.5, MCHC 34.8, RDW 18.8 H, Plt Count 177, MPV 9.5 09/11/17 02:25: Blood Type A NEGATIVE, Antibody Screen Negative, Crossmatch See Detail, BBK History Checked Patient has bt 09/11/17 02:25: Sodium 135, Potassium 4.3, Chloride 107, Carbon Dioxide 28, Anion Gap 4 L, BUN 25 H, Creatinine 0.7, Est GFR ( Amer) > 60, Est GFR ( Non-Af Amer) > 60, Random Glucose 73, Calcium 7.6 L, Total Bilirubin 0.1 L, AST 569 H D, ALT 342 H, Alkaline Phosphatase 612 H D, Lactate Dehydrogenase 1038 H, Total Creatine Kinase 55, Troponin I < 0.01, Total Protein 4.4 L, Albumin 1.6 L , Globulin 2.7, Albumin/Globulin Ratio 0.6 L, Amylase 37, Lipase 140 03/18/18 02:25: PT 12.2, INR 1.07, APTT 26.5 09/11/17 02:25: WBC 3.7 L, RBC 2.59 L, Hgb 8.6 L, Hct 25.3 L, MCV 97.7, MCH 33.2 , MCHC 34.0, RDW 15.7 H, Plt Count 220, MPV 9.2, Gran % 66.7, Lymph % (Auto) 25.7, [place] % (Auto) 7.6 H, Eos % (Auto) 0.0 L, Baso % (Auto) 0.0, Gran # 2.47, Lymph # (Auto) 1.0 L, [place] # (Auto) 0.3, Eos # (Auto) 0.0, Baso # (Auto) 0.00 I have reviewed the lab results: Yes - RAD Interpretation Radiology Orders: 09/11/17 02:17 NECK SOFT TISSUE W/O CONTRAST [CT] Stat 09/11/17 02:22 CHEST ONE VIEW [RAD] Stat 09/12/17 06:00 ABD PELVIS PO & IV CONTRAST [CT] Routine - EKG Interpretation Interpreted by ED Physician: Yes Type: 12 lead EKG - Medication Orders Current Medication Orders: Acetaminophen (Tylenol 325mg Tab) 650 mg PO Q4H PRN PRN Reason: Pain, Mild (1-3) Last Admin: 09/11/17 05:18 Dose: 650 mg Comments: Patient c/o general body aches 10/04. [facility] Pain/Vitals Document 09/11/17 05:18 RD (Rec: 09/11/17 05:19 [id number]) Pain Reassessment Is This A Pain ReAssessment? No Sleep Is patient sleeping during reassessment? No Presence of Pain Presence of Pain Yes Location Description Constant Intensity 4 Scale Used Numeric Pain Behavior Irritability Re-Assess: [facility] Pain/Vitals Document 09/11/17 06:18 ARTURO (Rec: 09/11/17 11:54 JA [id number]) Pain Reassessment Is This A Pain ReAssessment? Yes Presence of Pain Presence of Pain Yes Buspirone HCl (Buspar) 5 mg PO BID JENNY PRN Reason: Protocol Last Admin: 09/15/17 17:12 Dose: 5 mg Behavioural Document 09/15/17 17:12 JA (Rec: 09/15/17 17:12 ARTURO [id number]) Maintenance Maintenance Dose Yes Nonmedicinal Nonmedicinal Interventions Therapeutic Communication Give food/fluids Citalopram Hydrobromide (Celexa) 20 mg PO DAILY [facility] Last Admin: 09/15/17 11:22 Dose: 20 mg Furosemide (Lasix) 40 mg IVP DAILY [facility] Last Admin: 09/15/17 11:22 Dose: 40 mg MAR Blood Pressure Document 09/15/17 11:22 JA (Rec: 09/15/17 11:23 [id number]) Blood Pressure Blood Pressure (100/60-150/90) 101/69 IVP Administration Document 09/15/17 11:22 ARTURO (Rec: 09/15/17 11:23 ARTURO [id number]) Charges for Administration # of IVP Administrations 1 Gabapentin (Neurontin) 300 mg PO TID JENNY PRN Reason: Protocol Last Admin: 09/15/17 17:12 Dose: 300 mg Behavioural Document 09/15/17 17:12 JA (Rec: 09/15/17 17:12 [id number]) Maintenance Maintenance Dose Yes Nonmedicinal Nonmedicinal Interventions Therapeutic Communication Give food/fluids Vancomycin HCl (Vancomycin 1gm) 1 gm in 250 mls @ 167 mls/hr IVPB Q12H JENNY PRN Reason: Protocol Last Admin: 09/15/17 23:28 Dose: 167 mls/hr eMAR Start Stop Document 09/15/17 23:28 IMT (Rec: 09/15/17 23:28 IMT [id number]) Intravenous Solution Start Date 09/15/17 Start Time 23:28 End Date 09/16/17 End time 00:58 Total Infusion Time 90 Aztreonam (Azactam 1 Gm) 100 mls @ 100 mls/hr IVPB Q8 JENNY PRN Reason: Protocol Stop: 09/20/17 22:01 Last Admin: 09/16/17 05:25 Dose: 100 mls/hr eMAR Start Stop Document 09/16/17 05:25 IMT (Rec: 09/16/17 05:25 IMT [id number]) Intravenous Solution Start Date 09/16/17 Start Time 05:25 End Date 09/16/17 End time 06:25 Total Infusion Time 60 Mupirocin (Bactroban Ointment) 0 gm TOP BID [facility] Last Admin: 09/15/17 17:13 Dose: 1 appl Ondansetron HCl (Zofran Inj) 4 mg IVP Q6H PRN PRN Reason: Nausea/Vomiting Last Admin: 09/15/17 11:34 Dose: 4 mg IVP Administration Document 09/15/17 11:34 JA (Rec: 09/15/17 11:34 JA [id number]) Charges for Administration # of IVP Administrations 1 Oxycodone HCl (Oxycontin Extended Release Tab) 40 mg PO Q12 [facility] Last Admin: 09/15/17 21:53 Dose: 40 mg [facility] Pain Assessment Document 09/15/17 21:53 IMT (Rec: 09/15/17 21:54 IMT [id number]) Pain Reassessment Is this a pain reassessment? No Presence of Pain Presence of Pain Yes Location Left, Right or Bilateral Bilateral Pain Location Body Site Leg Description Description Intermittent Pain Behavior Guarding Aggravating Factors ADL's Alleviating Factors/Management Medication Techniques Alleviating Factors Medication Re-Assess: [facility] Pain Assessment Document 09/15/17 22:53 IMT (Rec: 09/16/17 00:29 [id number] Pain Reassessment Is this a pain reassessment? Yes Sleep Is patient sleeping during reassessment? Yes Oxycodone/Acetaminophen (Percocet 10/325 Mg Tab) 1 tab PO Q6H PRN PRN Reason: Pain, moderate (4-7) Last Admin: 09/16/17 05:25 Dose: 1 tab [facility] Pain Assessment Document 09/16/17 05:25 IMT (Rec: 09/16/17 05:26 IMT [id number]) Pain Reassessment Is this a pain reassessment? No Presence of Pain Presence of Pain Yes Location Left, Right or Bilateral Bilateral Pain Location Body Site Leg Description Description Intermittent Intensity of Pain at present 7 Pain Behavior Guarding Aggravating Factors ADL's Alleviating Factors/Management Medication Techniques Alleviating Factors Medication Re-Assess: [facility] Pain Assessment Document 09/16/17 07:30 MJO (Rec: 09/16/17 08:43 MJO [facility]) Pain Reassessment Is this a pain reassessment? Yes Sleep Is patient sleeping during reassessment? Yes Pantoprazole Sodium (Protonix Ec Tab) 40 mg PO 0600,1600 [facility] Last Admin: 09/16/17 05:25 Dose: 40 mg Potassium Chloride (Klor-Con 10) 10 meq PO BRK [facility] Last Admin: 09/15/17 11:21 Dose: 10 meq Discontinued Medications Furosemide (Lasix) 40 mg PO DAILY [facility] Last Admin: 09/12/17 10:02 Dose: 40 mg MAR Blood Pressure Document 09/12/17 10:02 DSZ (Rec: 09/12/17 10:03 DSZ [id number]) Blood Pressure Blood Pressure (100/60-150/90) 112/78 Sodium Chloride (Sodium Chloride 0.9%) 1,000 mls @ 80 mls/hr IV .[id number] [facility] Last Admin: 09/11/17 17:22 Dose: 80 mls/hr eMAR Start Stop Document 09/11/17 17:22 JA (Rec: 09/11/17 17:22 JA [id number]) Intravenous Solution Start Date 09/11/17 Start Time 17:22 Sodium Chloride (Sodium Chloride 0.9%) 1,000 mls @ 100 mls/hr IV .Q10H STA Stop: 09/11/17 13:30 Last Admin: 09/11/17 03:41 Dose: 100 mls/hr eMAR Start Stop Document 09/11/17 03:41 RD (Rec: 09/11/17 03:41 [id number]) Intravenous Solution Start Date 09/11/17 Start Time 03:41 Meropenem (Merrem Iv 1 Gm Premix) 50 mls @ 100 mls/hr IVPB STAT ONE PRN Reason: Protocol Stop: 09/13/17 11:44 Last Admin: 09/13/17 11:24 Dose: 100 mls/hr eMAR Start Stop Document 09/13/17 11:24 DSZ (Rec: 09/13/17 11:24 DSZ [id number]) Intravenous Solution Start Date 09/13/17 Start Time 11:24 Oxycodone HCl (Oxycontin Extended Release Tab) 40 mg PO Q12 [facility] Last Admin: 09/15/17 11:24 Dose: 40 mg MAR Pain Assessment Document 09/15/17 11:24 (Rec: 09/15/17 11:24 [id number]) Pain Reassessment Is this a pain reassessment? No Presence of Pain Presence of Pain Yes Pain Scale Used Pain Scale Used Numeric Location Pain Location Body Site Generalized Description Description Constant Intensity of Pain at present 8 Re-Assess: [facility] Pain Assessment Document 09/15/17 12:24 (Rec: 09/15/17 16:36 [id number]) Pain Reassessment Is this a pain reassessment? Yes Presence of Pain Presence of Pain Yes Pain Scale Used Pain Scale Used Numeric Location Pain Location Body Site Generalized Description Description Constant Intensity of Pain at present 5 Acceptable Level of Pain 0-3 Oxycodone/Acetaminophen (Percocet 10/325 Mg Tab) tab PO Q6 PRN PRN Reason: Pain, moderate (4-7) Oxycodone/Acetaminophen (Percocet 10/325 Mg Tab) 1 tab PO Q6 PRN PRN Reason: Pain, moderate (4-7) Potassium Chloride (K-Dur 20 Meq Er Tab) 40 meq PO ONCE ONE Stop: 09/14/17 09:12 Last Admin: 09/14/17 10:44 Dose: 40 meq - Scribe Statement The provider has reviewed the documentation as recorded by the Harshad Macias Provider Scribe Attestation: All medical record entries made by the Scribe were at my direction and personally dictated by me. I have reviewed the chart and agree that the record accurately reflects my personal performance of the history, physical exam, medical decision making, and the department course for this patient. I have also personally directed, reviewed, and agree with the discharge instructions and disposition. Disposition/Present on Arrival - Present on Arrival Any Indicators Present on Arrival: No History of DVT/PE: No History of Uncontrolled Diabetes: No Urinary Catheter: No History of Decub. Ulcer: No History Surgical Site Infection Following: None - Disposition Have Diagnosis and Disposition been Completed?: Yes Diagnosis: Anemia, Weakness Disposition: HOSPITALIZED Disposition Time: 04:00 Condition: FAIR
[2017-09-11] MEDS: Sodium Chloride 0.9% 1,000 ML IV SCH ×2 (02:34→17:22)
[2017-09-11 02:45] LABS: GRAN # 2.47 (1.4-6.5); GRAN % 66.7 % (50.0-68.0); HEMOGLOBIN 8.6 g/dL (12.0-16.0); LYMPH % 25.7 % (22.0-35.0); MEAN CELL VOLUME 97.7 fl (80.0-105.0); MEAN CORPUSCULAR HEMOGLOBIN 33.2 pg (25.0-35.0); MEAN PLATELET VOLUME 9.2 fl (7.0-11.0); MONO # 0.3 (0.1-0.6); MONO % 7.6 % (1.0-6.0); RBC 2.59 10^6/uL (3.5-6.1); RED CELL DISTRIBUTION WIDTH 15.7 % (11.5-14.5); WHITE BLOOD COUNT 3.7 10^3/ul (4.5-11.0)
[2017-09-11 02:55] LABS: ALB/GLOB RATIO 0.6 (1.1-1.8); ALBUMIN 1.6 g/dL (3.0-4.8); ALT/SGPT 342 U/L (7-56); AMYLASE 37 U/L (35-125); AST/SGOT 569 U/L (14-36); BLOOD UREA NITROGEN 25 mg/dL (7-21); CALCIUM 7.6 mg/dL (8.4-10.5); GFR AFRICAN-AMERICAN > 60; GFR NON-AFRICAN AMERICAN > 60; LIPASE 140 U/L (23-300)
[2017-09-11 03:06] LABS: TROPONIN I < 0.01 ng/mL
[2017-09-11 03:16] LABS: INR 1.07 (0.93-1.08); PARTIAL THROMBOPLASTIN TIME 26.5 Seconds (25.1-36.5); PROTHROMBIN TIME 12.2 SECONDS (9.4-12.5)
[2017-09-11] MEDS ORDERED: Sodium Chloride 0.9% 1,000 ML IV STA (03:31)
--- NOTE | 2017-09-11 04:22 | CT ---
EXAM: CT Neck Without Intravenous Contrast CLINICAL HISTORY: 62 years old, female; Signs and symptoms; Other: Swelling TECHNIQUE: Axial computed tomography images of the neck without intravenous contrast. All CT scans at this facility use one or more dose reduction techniques, viz.: automated exposure control; ma/kV adjustment per patient size (including targeted exams where dose is matched to indication; i.e. head); or iterative reconstruction technique. Coronal and sagittal reformatted images were created and reviewed. COMPARISON: No relevant prior studies available. FINDINGS: The soft tissues are not well delineated secondary to the lack of intravenous contrast. Nasopharynx: Unremarkable. Oropharynx: Unremarkable. No significant tonsillar enlargement. Hypopharynx: Unremarkable. Larynx: Unremarkable. Normal epiglottis. Trachea: Unremarkable. Retropharyngeal space: Unremarkable. Submandibular/parotid glands: Unremarkable. Thyroid: Unremarkable. No enlarged or calcified nodules. Bones/joints: No acute abnormality. Soft tissues: Unremarkable. Vasculature: Limited. Lymph nodes: Unremarkable. No lymphadenopathy. Lung apices: Unremarkable as visualized. IMPRESSION: No acute abnormality.
--- NOTE | 2017-09-11 08:21 | RAD ---
PROCEDURE: CHEST RADIOGRAPH, 1 VIEW HISTORY: pain COMPARISON: Comparison is made with 07/22/2017 FINDINGS: LUNGS: No evidence of new infiltrate or consolidation in the lungs. PLEURA: No pneumothorax or pleural fluid seen. CARDIOVASCULAR: Normal. OSSEOUS STRUCTURES: No significant abnormalities. VISUALIZED UPPER ABDOMEN: Normal. OTHER FINDINGS: None. IMPRESSION: No active pulmonary disease.
[2017-09-11] MEDS ORDERED: Oxycodone/Acetaminophen 10/325 mg Tab PO PRN ×2 (10:24→11:14)
--- NOTE | 2017-09-11 10:59 | CARD ---
APPROVED REPORT EKG Measurement Heart [id number] <Conclusion> Normal sinus rhythm Low voltage NSSTW changes Leftward axis No change except low voltage V 4 - 6 c/w ECG 07/22/17
[2017-09-11] MEDS: oxyCODONE 20 mg ER Tab (oxyCONTIN) PO SCH ×2 (11:52→21:24)
--- NOTE | 2017-09-11 19:52 | HP ---
DATE OF EXAM: 09/11/2017 CHIEF COMPLAINT AND HISTORY OF PRESENT ILLNESS: This is a 62-year-old female who is coming in to the hospital because of generalized weakness. She says she has been having lower extremity swelling. She has a past medical history of anemia, hypertension, multiple sclerosis, sarcoidosis, pancreatitis and a left ureteral stent. The patient states that she has been weak and she has a history of anemia and she has had multiple blood transfusions. She denies any fevers or chills. No nausea. No vomiting. No dysuria or frequency. No nocturia. No focal weakness in the hands or in the arms. ALLERGIES: TO PENICILLIN, SULFA, CODEINE AND BLACK PEPPER. HOME MEDICATIONS: Have been reviewed. PAST MEDICAL HISTORY: As above. SOCIAL HISTORY: She lives with her son. She denies smoking. She was a smoker in the past. FAMILY HISTORY: Noncontributory. PHYSICAL EXAMINATION: VITAL SIGNS: Temperature is 97.8, pulse is 71, blood pressure is 110/63, respirations 18, O2 saturation 97%. Height is 4 feet 11 inches. Weight is 105 pounds. BMI is 21.2. GENERAL: The patient looks malnourished. HEENT: Atraumatic and normocephalic. Anicteric sclerae. Moist mucosa. [place] conjunctivae. No oral lesions. NECK: No JVD, anterior and posterior adenopathy, thyromegaly, or bruits. CARDIOVASCULAR: S1 and S2 regular. No murmur, rubs, or gallop. LUNGS: Clear to auscultation bilaterally. No wheezes, rales, or rhonchi. ABDOMEN: Bowel sounds are positive. Soft, nontender and nondistended. No hepatosplenomegaly. No rebound and no guarding EXTREMITIES: In the lower extremity, 2+ edema. Lower extremity ulcer. NEUROLOGIC: No facial asymmetry. Tongue is midline. No uvula deviation. Power is 5/5 upper extremity and lower extremity. Sensation intact in upper extremity and lower extremity. PSYCHIATRIC: She is awake, alert and oriented x3. No anxiety or depression. She has normal affect. GENITOURINARY: No CVA tenderness. VASCULAR: 2+ pulses in the carotid pulses and pedal pulses. SKIN: No erythema or nodules SPINE: Shows normal curvature. LABORATORY DATA: Sodium of 135. Creatinine is 0.7. AST and ALT is 569 and 342. LDH is 1038. Hemoglobin is 8.6, platelet count is 220. Albumin is 1.6. INR is 1.07. Chest x-ray shows no active disease. CT of the neck shows no acute abnormalities. ASSESSMENT: 1. Anemia. 2. Gait dysfunction. 3. Transaminitis. 4. Multiple sclerosis. 5. Degenerative joint disease. 6. Left nephrolithiasis with stent. 7. Bilateral leg ulcers. 8. Lower extremity edema. PLAN: The patient is going to be admitted to the hospital. The patient is currently comfortable. She is on Celexa. She is going to get transfusion for anemia. We will get Dr. Guo to evaluate the patient. The patient is on heart-healthy diet. I will Dr. Puckett for ulcers. Eric Wasserman MD
[2017-09-12] MEDS ORDERED: Barium Sulfate Susp 2.1% w/v, 2.0% w/w 450 mL Bottle PO ONE (06:43)
[2017-09-12 07:11] LABS: MEAN CORPUSCULAR HEMOGLOBIN 31.5 pg (25.0-35.0); MEAN CORPUSCULAR HGB CONC 34.8 g/dl (31.0-37.0); MEAN PLATELET VOLUME 9.5 fl (7.0-11.0); RBC 4.25 10^6/uL (3.5-6.1); RED CELL DISTRIBUTION WIDTH 18.8 % (11.5-14.5); WHITE BLOOD COUNT 4.9 10^3/ul (4.5-11.0)
[2017-09-12 07:23] LABS: HEMOGLOBIN 13.4 g/dL (12.0-16.0); MEAN CELL VOLUME 90.6 fl (80.0-105.0)
[2017-09-12] MEDS ORDERED: Iohexol 350 MG/100 ML VIAL ONE (09:19)
[2017-09-12] MEDS ORDERED: Iohexol 240 (50 ml) ONE (09:46)
[2017-09-12] MEDS: oxyCODONE 20 mg ER Tab (oxyCONTIN) PO SCH ×2 (10:01→23:24)
--- NOTE | 2017-09-12 12:16 | CON ---
REASON FOR CONSULTATION: Anemia, weight loss. HISTORY OF PRESENT ILLNESS: This is a 62-year-old patient with past medical history of multiple sclerosis, sarcoidosis, hypertension, admitted with the generalized weakness and leg swelling. Patient was found to have low blood count and she was advised to go to Emergency Room by PMD. No history of vomiting blood. No history of bleeding per rectum. Patient never had an endoscopy. Colonoscopy attempted 2 years ago was poor preparation. Patient did not follow up. PAST MEDICAL HISTORY: Other past medical history as above. History of sarcoidosis, history of pancreatitis before, history of left ureteric stent which is removed. PAST SURGICAL HISTORY: Positive for right eye surgery, had a laser surgery, status post cholecystectomy and appendicectomy in 1997, sarcoidosis mainly affecting the eyes; history of leg ulcers, being followed by Dr. Puckett. ALLERGIES: SHE IS ALLERGIC TO BLACK PEPPER, CODEINE, PENICILLIN AND SULFA. SOCIAL HISTORY: Denies smoking. She is an ex-smoker. Denies alcohol use. REVIEW OF SYSTEMS: Positive as above. Other systems reviewed. PHYSICAL EXAMINATION GENERAL: On examination, patient is lying on the bed, not in acute distress. VITAL SIGNS: Temperature is 97.2, pulse 73, blood pressure 105/74, respirations 18, O2 saturation 97%. HEENT: Atraumatic. Anicteric. Patient appears cachectic. NECK: Supple. HEART: S1, S2 heard. LUNGS: Bilateral air entry present. ABDOMEN: Soft. There is no mass palpable. EXTREMITIES: Bilateral leg dressing present. NEUROLOGIC: Alert, oriented and moves all the extremities. LABORATORY DATA: Hemoglobin 8.6, hematocrit 25.3, WBC 3.7, platelets 220,000. Chemistry shows total bilirubin 0.1, AST 569, ALT 342. Alkaline phosphatase 612. LDH 1038. IMPRESSION: Anemia, drop in blood count nearly close to 2 g; last blood count, hemoglobin last month was 10.4, MCV 97. Chemistry shows significant elevation of the liver enzymes; AST was 37, now it is 569; ALT 43, now it is 342 and alkaline phosphatase also significantly elevated. This 62-year-old patient with past medical history of sarcoidosis, multiple sclerosis, hypertension, admitted with anemia and weakness. She has a significant history of weight loss. Status post cholecystectomy. 1. This 62-year-old patient admitted with anemia, weakness, significant drop in blood count the one month nearly close to 2 g, history of weight loss. The differential diagnosis should include peptic ulcer disease, erosive esophagitis and neoplasia also to be considered. 2. Abnormal liver function tests, etiology is unclear. The patient has been taking meloxicam at home. The differential diagnosis should include a hepatitis profile. Patient liver function tests were normal. 1. Would recommend at this point close followup of the hemoglobin and hematocrit. 2. We will discuss further CT of the abdomen and pelvis with IV and p.o. contrast to further evaluate. 3. Hepatitis profile as a baseline workup. 4. Patient will need endoscopic and colonoscopic evaluation. Other comorbidities include gait dysfunction, degenerative disk joint disease, history of ureteral stent and leg ulcers. RECOMMENDATIONS 1. Followup of the hemoglobin and hematocrit. 2. Iron studies, B12, folate levels. 3. We will continue to closely follow up her care and suggest further management based on the clinical course. Thank you very much for allowing us to participate in the care of the patient. Ami Alvarado MD
--- NOTE | 2017-09-12 13:55 | PN ---
DATE: 09/12/2017 SUBJECTIVE: The patient has no complaints of any chest pain. No shortness of breath. No headaches. She states she feels weak. She has difficulty ambulating. She states she was ambulating about two days ago. PHYSICAL EXAMINATION VITAL SIGNS: Temperature is 97.7, pulse is 70, blood pressure 112/77, respirations 21. GENERAL: The patient is lying in bed, flat, comfortable. HEENT: No oral lesion. Anicteric sclerae. Moist mucosa. NECK: No JVD, adenopathy, or thyromegaly. CARDIOVASCULAR: S1 and S2, regular. No murmurs, rubs, or gallops. LUNGS: Clear to auscultation bilaterally. No wheeze, rales, or rhonchi. ABDOMEN: Bowel sounds are positive. Soft, nontender and nondistended. EXTREMITIES: No cyanosis or clubbing. Right lower extremity edema. LABORATORY DATA: White count of 4.9, hemoglobin 13.4. Creatinine is 0.7. ASSESSMENT 1. Anemia of unknown etiology. 2. Gait dysfunction. 3. Transaminitis. 4. Multiple sclerosis. 5. Degenerative joint disease. 6. Frailty. 7. Nephrolithiasis with stent. 8. Bilateral leg ulcers. 9. Lower extremity edema. PLAN: The patient's hemoglobin is stable at 13.4. The patient's LFTs have been elevated, not sure of the etiology. I have talked to Dr. Alvarado. The patient may need further evaluation because of the weight loss. To rule out malignancy, the patient was on fluids. I will discontinue the patient's IV fluids. We will continue Celexa. She is going today for physical therapy. Eric Wasserman MD
--- NOTE | 2017-09-12 15:41 | CT ---
PROCEDURE: CT Abdomen and Pelvis with contrast HISTORY: weight loss, anemia COMPARISON: 04/20/2017 TECHNIQUE: Contrast dose: 100 cc of Omni 350 Radiation dose: Total exam DLP = 327 mGy-cm. This CT exam was performed using one or more of the following dose reduction techniques: Automated exposure control, adjustment of the mA and/or kV according to patient size, and/or use of iterative reconstruction technique. FINDINGS: LOWER THORAX: Bibasilar infiltrates and small effusions LIVER: Unremarkable. No gross lesion or ductal dilatation. GALLBLADDER AND BILE DUCTS: Gallbladder removed PANCREAS: Unremarkable. No gross lesion or ductal dilatation. SPLEEN: Unremarkable. ADRENALS: Unremarkable. No mass. KIDNEYS AND URETERS: Unremarkable. No hydronephrosis. No solid mass. VASCULATURE: Unremarkable. No aortic aneurysm. BOWEL: Unremarkable. No obstruction. No gross mural thickening. APPENDIX: Normal appendix. PERITONEUM: There is severe ascites LYMPH NODES: Unremarkable. No enlarged lymph nodes. BLADDER: There is a large amount of air within the wall of the urinary bladder. The finding is consistent with emphysematous cystitis. The finding is best seen on image 162 series 3 REPRODUCTIVE: Unremarkable. BONES: No acute fracture. OTHER FINDINGS: None. IMPRESSION: Severe ascites. Emphysematous cystitis
[2017-09-12] MEDS: Pantoprazole 40 mg EC Tab PO SCH (16:47)
--- NOTE | 2017-09-12 17:28 | CP.PCM.PN ---
Subjective - Date & Time of Evaluation Date of Evaluation: 09/12/17 Time of Evaluation: 05:00 - Subjective Subjective: Pt seen at bedside in NAD - pt seen for cellulitis to both LE Pt known to me from previous admission and a follow up visit was arranged but pt did not keep the visit; states her daughter in law has been doing her wound care at home Objective - Vital Signs/Intake and Output Vital Signs (last 24 hours): Temp Pulse Resp BP Pulse Ox 97.2 F L 80 22 106/72 99 09/12/17 14:00 09/12/17 14:00 09/12/17 14:00 09/12/17 14:00 09/12/17 14:00 Intake and Output: 09/12/17 09/12/17 06:59 18:59 Intake Total 540 Output Total 600 Balance -60 - Medications Medications: Current Medications Acetaminophen (Tylenol 325mg Tab) 650 mg PO Q4H PRN PRN Reason: Pain, Mild (1-3) Last Admin: 09/11/17 05:18 Dose: 650 mg Buspirone HCl (Buspar) 5 mg PO BID [facility] PRN Reason: Protocol Last Admin: 09/12/17 10:00 Dose: 5 mg Citalopram Hydrobromide (Celexa) 20 mg PO DAILY [facility] Last Admin: 09/12/17 10:01 Dose: 20 mg Furosemide (Lasix) 40 mg IVP DAILY [facility] Gabapentin (Neurontin) 300 mg PO TID [facility] PRN Reason: Protocol Oxycodone HCl (Oxycontin Extended Release Tab) 40 mg PO Q12 [facility] Last Admin: 09/12/17 10:01 Dose: 40 mg Oxycodone/Acetaminophen (Percocet 10/325 Mg Tab) 1 tab PO Q6 PRN PRN Reason: Pain, moderate (4-7) Pantoprazole Sodium (Protonix Ec Tab) 40 mg PO 0600,1600 [facility] Last Admin: 09/12/17 16:47 Dose: 40 mg Potassium Chloride (Klor-Con 10) 10 meq PO BRK [facility] - Labs Labs: PT 12.2 SECONDS (9.4-12.5) 09/11/17 02:25 INR 1.07 (0.93-1.08) 09/11/17 02:25 APTT 26.5 Seconds (25.1-36.5) 09/11/17 02:25 - Constitutional Appears: No Acute Distress - Extremities Exam Extremities Exam: Normal Capillary Refill, Pedal Edema, Tenderness. absent: Calf Tenderness, Joint Swelling, Normal Inspection Additional comments: Vascular exam shows patient with palpable DP pulses bilateral and faitly palpable PT pules CFT 2 sec x 10 TG Reversed Neurological sensation to the feet is intact to sharp/dull discrimination and light touch Skin exam shows redness of both LE with mild edema - minimal drainage no open wounds secondary scaling much improved since the last time we saw the patient; pain on minimal palpation and on slight movement of the legs Assessment and Plan - Assessment and Plan (Free Text) Assessment: cellulitis bilateral lower extremities Plan: Local care daily with cleansing of legs with wash cloths;apply bactraban cream and DSD daily heel pads to offload and prevent heel decubiti
--- NOTE | 2017-09-12 20:10 | US ---
HISTORY: Leg pain and swelling. Evaluate for DVT PHYSICIAN(S): Kamlesh Ayers MD. TECHNIQUE: Duplex sonography and color-flow Doppler with graded compression were used to evaluate the deep venous systems of both lower extremities. The exam is somewhat limited by edema. FINDINGS: The visualized deep venous systems of both lower extremities are sonographically normal and compressible. Normal wave forms and augmentation are seen. There is no sonographic evidence for deep venous thrombosis in the visualized segments of both lower extremities. IMPRESSION: No sonographic evidence for deep venous thrombosis in the visualized segments of both lower extremities.
[2017-09-13] MEDS: Pantoprazole 40 mg EC Tab PO SCH ×2 (05:05→18:07)
[2017-09-13 07:00] LABS: MEAN CELL VOLUME 91.7 fl (80.0-105.0); MEAN CORPUSCULAR HEMOGLOBIN 31.4 pg (25.0-35.0); MEAN CORPUSCULAR HGB CONC 34.2 g/dl (31.0-37.0); MEAN PLATELET VOLUME 9.4 fl (7.0-11.0); RBC 4.46 10^6/uL (3.5-6.1); RED CELL DISTRIBUTION WIDTH 18.3 % (11.5-14.5); WHITE BLOOD COUNT 6.5 10^3/ul (4.5-11.0)
[2017-09-13 07:25] LABS: IRON 42 ug/dL (45-180)
[2017-09-13 07:34] LABS: % IRON SATURATION 35 % (20-55); TOTAL IRON BINDING CAPACITY 120 ug/dL (265-497)
[2017-09-13 07:51] LABS: ALB/GLOB RATIO 0.6 (1.1-1.8); ALBUMIN 1.6 g/dL (3.0-4.8); ALT/SGPT 473 U/L (7-56); AST/SGOT 1006 U/L (14-36); BLOOD UREA NITROGEN 22 mg/dL (7-21); CALCIUM 7.7 mg/dL (8.4-10.5); GFR AFRICAN-AMERICAN > 60; GFR NON-AFRICAN AMERICAN > 60
[2017-09-13] MEDS: Potassium Chloride 10 mEq ER Tab PO SCH (08:02)
[2017-09-13] MEDS: oxyCODONE 20 mg ER Tab (oxyCONTIN) PO SCH ×2 (10:00→23:29)
[2017-09-13] MEDS ORDERED: Meropenem IV 1 gm in NS 50 ML IVPB ONE (11:15)
[2017-09-13 11:28] LABS: URINE BILIRUBIN NEGATIVE (NEGATIVE); URINE BLOOD LARGE (NEGATIVE); URINE GLUCOSE (UA) NEGATIVE (NEGATIVE); URINE LEUKOCYTE ESTERASE TRACE Leu/uL (NEGATIVE); URINE PROTEIN TRACE mg/dL (<30 mg/dL); URINE UROBILINOGEN 0.2 E.U./dL (<1 E.U./dL)
--- NOTE | 2017-09-13 11:35 | CP.PCM.PN ---
<Alexis Iyer - Last Filed: 09/13/17 11:29> Subjective - Date & Time of Evaluation Date of Evaluation: 09/13/17 Time of Evaluation: 10:30 - Subjective Subjective: GI Progress Note Dr. Alvarado Pt was seen and examined at bedside. No acute complaints at this time. Pt states she is feeling better than yesterday. Pt is tolerating po intake and moving bowels and bladder regularly. Pt denied fever, chills, sob, chest pains , abdominal pain, nausea, vomiting or dysuria. Objective - Vital Signs/Intake and Output Vital Signs (last 24 hours): Temp Pulse Resp BP Pulse Ox 97.4 F L 78 20 105/72 94 L 09/13/17 07:30 09/13/17 07:30 09/13/17 07:30 09/13/17 10:02 09/13/17 07:30 Intake and Output: 09/13/17 09/13/17 06:59 18:59 Intake Total 660 Output Total 450 Balance 210 - Medications Medications: Current Medications Acetaminophen (Tylenol 325mg Tab) 650 mg PO Q4H PRN PRN Reason: Pain, Mild (1-3) Last Admin: 09/11/17 05:18 Dose: 650 mg Buspirone HCl (Buspar) 5 mg PO BID [facility] PRN Reason: Protocol Last Admin: 09/13/17 10:01 Dose: 5 mg Citalopram Hydrobromide (Celexa) 20 mg PO DAILY [facility] Last Admin: 09/13/17 10:06 Dose: 20 mg Furosemide (Lasix) 40 mg IVP DAILY [facility] Last Admin: 09/13/17 10:02 Dose: 40 mg Gabapentin (Neurontin) 300 mg PO TID [facility] PRN Reason: Protocol Last Admin: 09/13/17 10:06 Dose: 300 mg Meropenem (Merrem Iv 1 Gm Premix) 50 mls @ 100 mls/hr IVPB STAT ONE PRN Reason: Protocol Stop: 09/13/17 11:44 Mupirocin (Bactroban Ointment) 0 gm TOP BID [facility] Last Admin: 09/13/17 10:00 Dose: 1 appl Ondansetron HCl (Zofran Inj) 4 mg IVP Q6H PRN PRN Reason: Nausea/Vomiting Oxycodone HCl (Oxycontin Extended Release Tab) 40 mg PO Q12 [facility] Last Admin: 09/13/17 10:00 Dose: 40 mg Oxycodone/Acetaminophen (Percocet 10/325 Mg Tab) 1 tab PO Q6 PRN PRN Reason: Pain, moderate (4-7) Pantoprazole Sodium (Protonix Ec Tab) 40 mg PO 0600,1600 [facility] Last Admin: 09/13/17 05:05 Dose: 40 mg Potassium Chloride (Klor-Con 10) 10 meq PO BRK [facility] Last Admin: 09/13/17 08:02 Dose: 10 meq - Labs Labs: 09/13/17 06:15 09/13/17 06:15 PT 12.2 SECONDS (9.4-12.5) 09/11/17 02:25 INR 1.07 (0.93-1.08) 09/11/17 02:25 APTT 26.5 Seconds (25.1-36.5) 09/11/17 02:25 - Constitutional Appears: No Acute Distress - Head Exam Head Exam: ATRAUMATIC, NORMAL INSPECTION, NORMOCEPHALIC - Eye Exam Eye Exam: EOMI, Normal appearance, PERRL - ENT Exam ENT Exam: Mucous Membranes Moist, Normal Exam - Neck Exam Neck Exam: Full ROM, Normal Inspection. absent: Lymphadenopathy - Respiratory Exam Respiratory Exam: Clear to Ausculation Bilateral, NORMAL BREATHING PATTERN - Cardiovascular Exam Cardiovascular Exam: REGULAR RHYTHM, +S1, +S2. absent: Murmur - GI/Abdominal Exam GI & Abdominal Exam: Soft, Normal Bowel Sounds. absent: Tenderness - Neurological Exam Neurological Exam: Alert, Awake, CN II-XII Intact, Oriented x3 - Psychiatric Exam Psychiatric exam: Normal Affect, Normal Mood - Skin Skin Exam: Dry, Intact, Normal Color, Warm Assessment and Plan - Assessment and Plan (Free Text) Assessment: anemia ?PUD emphysematous cystitis Ascites transaminemia s/p cholecystectomy gait dysfunction degenerative joint disease ureteral stent leg ulcers Plan: s/p 2 units pRBCs, H&H stbale, continue to monitor CT abd: ascites and emphasematous cystitis fu iron studies fu B12 fu folate fu hep panel continue van/merrem lasix regular diet <Jenny,Kovil V - Last Filed: 09/13/17 22:46> Objective - Vital Signs/Intake and Output Vital Signs (last 24 hours): Temp Pulse Resp BP Pulse Ox 97.4 F L 78 20 105/72 94 L 09/13/17 07:30 09/13/17 07:30 09/13/17 07:30 09/13/17 10:02 09/13/17 07:30 Intake and Output: 09/13/17 09/14/17 18:59 06:59 Intake Total 480 Output Total 525 Balance -45 - Medications Medications: Current Medications Acetaminophen (Tylenol 325mg Tab) 650 mg PO Q4H PRN PRN Reason: Pain, Mild (1-3) Last Admin: 09/11/17 05:18 Dose: 650 mg Buspirone HCl (Buspar) 5 mg PO BID [facility] PRN Reason: Protocol Last Admin: 09/13/17 18:07 Dose: 5 mg Citalopram Hydrobromide (Celexa) 20 mg PO DAILY [facility] Last Admin: 09/13/17 10:06 Dose: 20 mg Furosemide (Lasix) 40 mg IVP DAILY [facility] Last Admin: 09/13/17 10:02 Dose: 40 mg Gabapentin (Neurontin) 300 mg PO TID [facility] PRN Reason: Protocol Last Admin: 09/13/17 18:05 Dose: 300 mg Vancomycin HCl (Vancomycin 1gm) 1 gm in 250 mls @ 167 mls/hr IVPB Q12H [facility] PRN Reason: Protocol Last Admin: 09/13/17 15:00 Dose: 167 mls/hr Aztreonam (Azactam 1 Gm) 100 mls @ 100 mls/hr IVPB Q8 [facility] PRN Reason: Protocol Stop: 09/20/17 22:01 Mupirocin (Bactroban Ointment) 0 gm TOP BID [facility] Last Admin: 09/13/17 18:07 Dose: Not Given Ondansetron HCl (Zofran Inj) 4 mg IVP Q6H PRN PRN Reason: Nausea/Vomiting Oxycodone HCl (Oxycontin Extended Release Tab) 40 mg PO Q12 [facility] Last Admin: 09/13/17 10:00 Dose: 40 mg Oxycodone/Acetaminophen (Percocet 10/325 Mg Tab) 1 tab PO Q6 PRN PRN Reason: Pain, moderate (4-7) Pantoprazole Sodium (Protonix Ec Tab) 40 mg PO 0600,1600 [facility] Last Admin: 09/13/17 18:07 Dose: 40 mg Potassium Chloride (Klor-Con 10) 10 meq PO BRK [facility] Last Admin: 09/13/17 08:02 Dose: 10 meq - Labs Labs: 09/13/17 06:15 09/13/17 06:15 PT 12.2 SECONDS (9.4-12.5) 09/11/17 02:25 INR 1.07 (0.93-1.08) 09/11/17 02:25 APTT 26.5 Seconds (25.1-36.5) 09/11/17 02:25 Attending/Attestation - Attestation I have personally seen and examined this patient.: Yes I have fully participated in the care of the patient.: Yes I have reviewed all pertinent clinical information, including history, physical exam and plan: Yes Notes (Text): This is an addendum to GI progress report dictated by Marley Fam APN.The patient was seen and examined earlier. Medical records, lab studies, imagings were reviewed. Last 24 hours events reviewed. Agreed with the above treatment plan as outlined in Marley Fam APN's notes the with the addition of the following8. on examination abdomen soft resistant distended no tenderness CT scan was reviewed Patient appears cachectic new onset ascites would need a paracentesis Postoperative serology was negative We Would request abdominal ultrasound to evaluate portal vein and also a pelvic sonogram in view of his ascites to further evaluate 09/13/17 22:44
[2017-09-13 11:42] LABS: URINE APPEARANCE CLEAR (CLEAR); URINE COLOR YELLOW (YELLOW)
[2017-09-13 11:50] LABS: URINE BACTERIA MOD (NEG); URINE RBC 20 - 25 /hpf (0-2)
--- NOTE | 2017-09-13 13:46 | CP.PCM.PN ---
<Heena Xiao - Last Filed: 09/13/17 13:42> Subjective - Date & Time of Evaluation Date of Evaluation: 09/13/17 Time of Evaluation: 13:42 - Subjective Subjective: Podiatry Progress Note 62 y/o female seen at bedside with attending Dr. Martínez regarding bilateral weeping venous stasis ulcerations. Pt eating lunch at time of visit and says she does not want her dressings removed and changed again, as the nurse just changed them nicely. States she is not having any pain or soreness in the legs right now. Says the creams are helping. Denies F/C/N/V/CP/SOB Objective - Vital Signs/Intake and Output Vital Signs (last 24 hours): Temp Pulse Resp BP Pulse Ox 97.4 F L 78 20 105/72 94 L 09/13/17 07:30 09/13/17 07:30 09/13/17 07:30 09/13/17 10:02 09/13/17 07:30 Intake and Output: 09/13/17 09/13/17 06:59 18:59 Intake Total 660 Output Total 450 Balance 210 - Medications Medications: Current Medications Acetaminophen (Tylenol 325mg Tab) 650 mg PO Q4H PRN PRN Reason: Pain, Mild (1-3) Last Admin: 09/11/17 05:18 Dose: 650 mg Buspirone HCl (Buspar) 5 mg PO BID [facility] PRN Reason: Protocol Last Admin: 09/13/17 10:01 Dose: 5 mg Citalopram Hydrobromide (Celexa) 20 mg PO DAILY [facility] Last Admin: 09/13/17 10:06 Dose: 20 mg Furosemide (Lasix) 40 mg IVP DAILY [facility] Last Admin: 09/13/17 10:02 Dose: 40 mg Gabapentin (Neurontin) 300 mg PO TID [facility] PRN Reason: Protocol Last Admin: 09/13/17 10:06 Dose: 300 mg Vancomycin HCl (Vancomycin 1gm) 1 gm in 250 mls @ 167 mls/hr IVPB Q12H [facility] PRN Reason: Protocol Mupirocin (Bactroban Ointment) 0 gm TOP BID [facility] Last Admin: 09/13/17 10:00 Dose: 1 appl Ondansetron HCl (Zofran Inj) 4 mg IVP Q6H PRN PRN Reason: Nausea/Vomiting Oxycodone HCl (Oxycontin Extended Release Tab) 40 mg PO Q12 [facility] Last Admin: 09/13/17 10:00 Dose: 40 mg Oxycodone/Acetaminophen (Percocet 10/325 Mg Tab) 1 tab PO Q6 PRN PRN Reason: Pain, moderate (4-7) Pantoprazole Sodium (Protonix Ec Tab) 40 mg PO 0600,1600 [facility] Last Admin: 09/13/17 05:05 Dose: 40 mg Potassium Chloride (Klor-Con 10) 10 meq PO BRK [facility] Last Admin: 09/13/17 08:02 Dose: 10 meq - Labs Labs: 09/13/17 06:15 09/13/17 06:15 PT 12.2 SECONDS (9.4-12.5) 09/11/17 02:25 INR 1.07 (0.93-1.08) 09/11/17 02:25 APTT 26.5 Seconds (25.1-36.5) 09/11/17 02:25 - Constitutional Appears: Well, Non-toxic, No Acute Distress - Extremities Exam Additional comments: Vascular: palpable DP pulses bilateral and faintly palpable PT pulses CFT 2 sec x 10. Temperatue gradient reversed Neurologic: sensation to the feet is intact to sharp/dull discrimination and light touch Derm: redness of both LE with mild edema - minimal drainage no open wounds secondary scaling much improved since the last time we saw the patient; pain on minimal palpation and on slight movement of the legs - Neurological Exam Neurological Exam: Alert, Awake, Oriented x3 - Psychiatric Exam Psychiatric exam: Normal Affect, Normal Mood Assessment and Plan - Assessment and Plan (Free Text) Assessment: Cellulitis bilateral lower extremities Plan: Local care daily with cleansing of legs with wash cloths Apply bactraban cream and DSD daily Heel pads to offload and prevent heel decubitis ulcers <Jose Guadalupe Martínez - Last Filed: 09/13/17 17:48> Objective - Vital Signs/Intake and Output Vital Signs (last 24 hours): Temp Pulse Resp BP Pulse Ox 97.4 F L 78 20 105/72 94 L 09/13/17 07:30 09/13/17 07:30 09/13/17 07:30 09/13/17 10:02 09/13/17 07:30 Intake and Output: 09/13/17 09/13/17 06:59 18:59 Intake Total 660 Output Total 450 Balance 210 - Medications Medications: Current Medications Acetaminophen (Tylenol 325mg Tab) 650 mg PO Q4H PRN PRN Reason: Pain, Mild (1-3) Last Admin: 09/11/17 05:18 Dose: 650 mg Buspirone HCl (Buspar) 5 mg PO BID [facility] PRN Reason: Protocol Last Admin: 09/13/17 10:01 Dose: 5 mg Citalopram Hydrobromide (Celexa) 20 mg PO DAILY [facility] Last Admin: 09/13/17 10:06 Dose: 20 mg Furosemide (Lasix) 40 mg IVP DAILY [facility] Last Admin: 09/13/17 10:02 Dose: 40 mg Gabapentin (Neurontin) 300 mg PO TID [facility] PRN Reason: Protocol Last Admin: 09/13/17 15:00 Dose: 300 mg Vancomycin HCl (Vancomycin 1gm) 1 gm in 250 mls @ 167 mls/hr IVPB Q12H [facility] PRN Reason: Protocol Last Admin: 09/13/17 15:00 Dose: 167 mls/hr Aztreonam (Azactam 1 Gm) 100 mls @ 100 mls/hr IVPB Q8 [facility] PRN Reason: Protocol Stop: 09/20/17 22:01 Mupirocin (Bactroban Ointment) 0 gm TOP BID [facility] Last Admin: 09/13/17 10:00 Dose: 1 appl Ondansetron HCl (Zofran Inj) 4 mg IVP Q6H PRN PRN Reason: Nausea/Vomiting Oxycodone HCl (Oxycontin Extended Release Tab) 40 mg PO Q12 [facility] Last Admin: 09/13/17 10:00 Dose: 40 mg Oxycodone/Acetaminophen (Percocet 10/325 Mg Tab) 1 tab PO Q6 PRN PRN Reason: Pain, moderate (4-7) Pantoprazole Sodium (Protonix Ec Tab) 40 mg PO 0600,1600 [facility] Last Admin: 09/13/17 05:05 Dose: 40 mg Potassium Chloride (Klor-Con 10) 10 meq PO BRK [facility] Last Admin: 09/13/17 08:02 Dose: 10 meq - Labs Labs: 09/13/17 06:15 09/13/17 06:15 PT 12.2 SECONDS (9.4-12.5) 09/11/17 02:25 INR 1.07 (0.93-1.08) 09/11/17 02:25 APTT 26.5 Seconds (25.1-36.5) 09/11/17 02:25 Attending/Attestation - Attestation I have personally seen and examined this patient.: Yes I have fully participated in the care of the patient.: Yes I have reviewed all pertinent clinical information, including history, physical exam and plan: Yes
[2017-09-13] MEDS: Vancomycin 1gm in NS 250ml 1 GM/250 ML BAG IVPB SCH (15:00)
--- NOTE | 2017-09-13 15:37 | CON ---
DATE: 09/13/2017 REASON FOR CONSULT: Anemia and weight loss. HISTORY OF PRESENT ILLNESS: The patient is a 62-year-old female, well known to me from prior admissions as well as the office with known history of anemia secondary to chronic kidney disease, hypertension, multiple sclerosis, sarcoidosis, pancreatitis as well as left ureteral stent. She presented to the emergency room at this time with generalized weakness as well as lower extremity swelling and increasing abdominal girth as well as difficulty retaining any solids. She was having some fullness, but she denies any nausea, vomiting. No dysuria or frequency. No nocturia. No focal weakness in the hands or arms or feet. She has continued to lose weight. She has not been able to follow up with me in the office secondary to severe weakness as well as difficulty ambulating whereas over a year ago, the patient was ambulating perfectly well. MEDICATIONS: Her home mediations have been reviewed. ALLERGIES: KNOWN ALLERGIES TO PENICILLIN, SULFA WELL CODEINE. SOCIAL HISTORY: Negative for smoking currently, but she was an ex-smoker. Denies any alcohol or drug abuse. Lives with her son. FAMILY HISTORY: Otherwise, noncontributory. REVIEW OF SYSTEMS: As per the HPI. PHYSICAL EXAMINATION: VITAL SIGNS: Vitals reveal a temperature of 97.4, pulse of 78, respiratory rate of 20 and a blood pressure of 105/72. GENERAL: The patient is an elderly, cachectic-appearing female, appearing older than her stated age, lying in bed with no acute distress. HEENT: Head and neck normocephalic, atraumatic. Eyes: Pupils equal, round and reactive to accommodation. Extraocular muscles are intact. There is no pallor. She does have bitemporal wasting. CARDIOVASCULAR: S1 and S2 are heard. ABDOMEN: Positive bowel sounds, soft, nontender and nondistended. No organomegaly is palpated. EXTREMITIES: There is bilateral lower extremity edema. She does have some palpable ascites in the abdomen. LUNGS: Decreased breath sounds bilaterally at the bases. LABORATORY DATA: Her labs now revealed hemoglobin of 14.0 post PRBC transfusion. White count 6.5 and a platelet count of 186. White count diff is within the normal limits. Chemistries reveal a BUN and creatinine of 22 and 0.8. LFTs are markedly elevated with an LDH of 1030, alk phos of 774, AST of 1000 and ALT of 473. Amylase, lipase are within normal limits. ASSESSMENT AND PLAN: Elderly female with severe anemia. No active bleeding. Recent gastrointestinal workup. Admitted with low hemoglobin and hematocrit once again, status post packed red blood cell transfusion. Hemoglobin has improved significantly, but she does have ascites as well as transaminemia. She is status post cholecystectomy. She needs current workup as ongoing for her liver function test elevation. Her CT of the abdomen just shows ascites and emphysematous cystitis, but there are no obvious masses. She needs a complete gastrointestinal workup. Follow up hepatitis panel. Continue antibiotics at this time. She is advised to follow up as an outpatient once she is discharged for further workup and continued treatments for her anemia. Thank you for the consult. We will follow. Madelin Guo MD
--- NOTE | 2017-09-13 15:50 | CP.PCM.CON ---
History of Present Illness - History of Present Illness History of Present Illness: 62 year old female with PMH of chronic anemia, HTN, multiple sclerosis, sarcoidosis, history of pancreatitis, S/P left ureteral stent came in to [facility] complaining of lower extremity swelling for about several days now. She denies walking barefoot, no animal contacts, no specific trauma to the legs. She also denies fever or chills, no nausea or vomiting, no abdominal pain, no headache or dizziness, no chest pain, no SOB, no cough or rhinorrhea, no sore throat, no diarrhea, no dysuria. Infectious Diseases consult is requested to further evaluate and manage. Review of Systems - Review of Systems All systems: reviewed and no additional remarkable complaints except (as per HPI ) Past Patient History - Infectious Disease Hx of Infectious Diseases: None - Past Social History Smoking Status: Former Smoker - CARDIAC Hx Pacemaker: No - PULMONARY Hx Respiratory Disorders: Yes (SMOKED CIGARETTES QUIT 40 YRS. PPD) - NEUROLOGICAL Hx Neurological Disorder: Yes Hx Migraine: Yes - HEENT Hx HEENT Problems: Yes Other/Comment: 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 - RENAL Hx Chronic Kidney Disease: Yes (L KIDNEY CYST,H/O LITHOTRYPSIES) Hx Kidney Stones: Yes - ENDOCRINE/METABOLIC Hx Endocrine Disorders: No Hx Hyperthyroidism: Yes - HEMATOLOGICAL/ONCOLOGICAL Hx Anemia: Yes Hx Cancer: No - INTEGUMENTARY Hx Dermatological Problems: Yes Other/Comment: 06-09-17 BILATERAL LE GROSS EDEMA,PITTING +4.THICK TO HIN FLAKY SKIN. HAS ANASARCA. EDEMA TO LEFT ARM WITH SOME BRUISED AREA. - MUSCULOSKELETAL/RHEUMATOLOGICAL Hx Falls: Yes - GASTROINTESTINAL Hx Gastrointestinal Disorders: Yes - GENITOURINARY/GYNECOLOGICAL Hx Genitourinary Disorders: Yes (nephrolithiasis) - PSYCHIATRIC Hx Emotional Abuse: No Hx Physical Abuse: No Hx Substance Use: No - SURGICAL HISTORY Hx Mastectomy: No - ANESTHESIA Hx Anesthesia Reactions: No Hx Malignant Hyperthermia: No Meds Allergies/Adverse Reactions: Allergies Allergy/AdvReac Type Severity Reaction Status Date / Time black pepper Allergy ITCHING Verified 07/27/17 20:05 codeine Allergy NAUSEA Verified 07/27/17 20:05 Penicillins Allergy SWELLING Verified 07/27/17 20:05 Sulfa (Sulfonamide Allergy RASH Verified 07/27/17 20:05 Antibiotics) - Medications Medications: Current Medications Acetaminophen (Tylenol 325mg Tab) 650 mg PO Q4H PRN PRN Reason: Pain, Mild (1-3) Last Admin: 09/11/17 05:18 Dose: 650 mg Buspirone HCl (Buspar) 5 mg PO BID [facility] PRN Reason: Protocol Last Admin: 09/13/17 10:01 Dose: 5 mg Citalopram Hydrobromide (Celexa) 20 mg PO DAILY [facility] Last Admin: 09/13/17 10:06 Dose: 20 mg Furosemide (Lasix) 40 mg IVP DAILY [facility] Last Admin: 09/13/17 10:02 Dose: 40 mg Gabapentin (Neurontin) 300 mg PO TID [facility] PRN Reason: Protocol Last Admin: 09/13/17 10:06 Dose: 300 mg Meropenem (Merrem Iv 1 Gm Premix) 50 mls @ 100 mls/hr IVPB STAT ONE PRN Reason: Protocol Stop: 09/13/17 11:44 Last Admin: 09/13/17 11:24 Dose: 100 mls/hr Vancomycin HCl (Vancomycin 1gm) 1 gm in 250 mls @ 167 mls/hr IVPB Q12H [facility] PRN Reason: Protocol Mupirocin (Bactroban Ointment) 0 gm TOP BID [facility] Last Admin: 09/13/17 10:00 Dose: 1 appl Ondansetron HCl (Zofran Inj) 4 mg IVP Q6H PRN PRN Reason: Nausea/Vomiting Oxycodone HCl (Oxycontin Extended Release Tab) 40 mg PO Q12 [facility] Last Admin: 09/13/17 10:00 Dose: 40 mg Oxycodone/Acetaminophen (Percocet 10/325 Mg Tab) 1 tab PO Q6 PRN PRN Reason: Pain, moderate (4-7) Pantoprazole Sodium (Protonix Ec Tab) 40 mg PO 0600,1600 [facility] Last Admin: 09/13/17 05:05 Dose: 40 mg Potassium Chloride (Klor-Con 10) 10 meq PO BRK [facility] Last Admin: 09/13/17 08:02 Dose: 10 meq Physical Exam - Constitutional Appears: Cachectic, Chronically Ill - Head Exam Head Exam: NORMAL INSPECTION - ENT Exam ENT Exam: Mucous Membranes Moist - Neck Exam Neck exam: Negative for: Meningismus - Respiratory Exam Respiratory Exam: Decreased Breath Sounds - Cardiovascular Exam Cardiovascular Exam: +S1, +S2 - GI/Abdominal Exam GI & Abdominal Exam: Soft. absent: Tenderness - Extremities Exam Additional comments: both legs with dressings in place Results - Vital Signs Recent Vital Signs: Last Vital Signs Temp 97.4 F L 09/13/17 07:30 Pulse 78 09/13/17 07:30 Resp 20 09/13/17 07:30 BP 105/72 09/13/17 10:02 Pulse Ox 94 L 09/13/17 07:30 - Labs Result Diagrams: 09/13/17 06:15 09/13/17 06:15 Labs: Laboratory Results - last 24 hr 09/13/17 09/13/17 09/13/17 06:15 06:15 06:15 WBC 6.5 D RBC 4.46 Hgb 14.0 Hct 40.9 MCV 91.7 MCH 31.4 MCHC 34.2 RDW 18.3 H Plt Count 186 MPV 9.4 Sodium 137 Potassium 4.5 Chloride 108 H Carbon Dioxide 28 Anion Gap 6 L BUN 22 H Creatinine 0.8 Est GFR ( Amer) > 60 Est GFR (Non-Af Amer) > 60 Random Glucose 63 L Calcium 7.7 L Phosphorus 3.1 Magnesium 1.9 Iron 42 L TIBC 120 L % Saturation 35 Total Bilirubin 0.3 AST 1006 H ALT 473 H Alkaline Phosphatase 774 H D Total Protein 4.5 L Albumin 1.6 L Globulin 2.9 Albumin/Globulin Ratio 0.6 L Assessment & Plan - Assessment and Plan (Free Text) Plan: Assessment consider bilateral lower extremity cellulitis history of bilateral lower extremity skin and skin structure infection with MRSA and Klebsiella chronic anemia HTN multiple sclerosis sarcoidosis history of pancreatitis S/P left ureteral stent Plan started Vancomycin and Aztreonam pending blood cx and urine cx and follow up podiatry evaluation will monitor clinically
[2017-09-13 16:56] LABS: HEPATITIS B SURFACE AG Negative (NEGATIVE)
[2017-09-13 17:03] LABS: HEPATITIS A IGM NEGATIVE (NEGATIVE); HEPATITIS B CORE AB NEGATIVE (NEGATIVE)
[2017-09-13 17:14] LABS: HEPATITIS C ANTIBODY NEGATIVE (NEGATIVE)
[2017-09-13 17:25] LABS: FOLATE > 20.0 ng/mL
[2017-09-13] MEDS: Aztreonam 1 Gm in NS 100mL 100 ML IVPB SCH (23:29)
--- NOTE | 2017-09-14 01:51 | PN ---
DATE: SUBJECTIVE: The patient is a 62-year-old, known to me from multiple previous admissions, came to emergency room because of generalized weakness, leg swelling, weight loss. Denies any fever or chills. No nausea, vomiting or diarrhea. Complained of generalized weakness. OBJECTIVE: VITAL SIGNS: She is afebrile, pulse 78, respirations 20, blood pressure 105/72. LUNGS: Bilateral fair airflow. No rhonchi or crackles. Decreased airflow at bases. HEART: S1 and S2 audible. ABDOMEN: Soft and nontender. No rebound. No guarding. She has slight fluid thrill. EXTREMITIES: Bilateral leg, +2 edema. LABORATORY DATA: WBC 6.5, hemoglobin 14, hematocrit 40, platelets 186. Chemistry: Sodium 137, potassium 4.5, chloride 108, CO2 of 28, BUN 22, creatinine 0.8, blood sugar of 63, iron is 42. TIBC 120. Her AST is 1006, ALT is 473, alk phos is 774, B12 is more than 1000. Urine positive for nitrites and leukocytes. Hepatitis profile is negative. DIAGNOSTIC DATA: CT scan of the abdomen and pelvis shows ascites and emphysematous cystitis. Bilateral leg Doppler negative for DVT. CT scan of the neck was unremarkable. ASSESSMENT : 1. Significant weight loss. 2. Bilateral leg edema and cellulitis. 3. Ascites, probably secondary to hypoalbuminemia. 4. Acute on chronic anemia. 5. History of sarcoidosis. 6. History of multiple sclerosis. 7. History of nephrolithiasis. PLAN: Patient has been started on Azactam. We will review her usual medications. Start her on IV Lasix. Continue her on Protonix. Dr. Kamlesh Ayers has been consulted for paracentesis to send out her serology to rule out abdominal malignancy. Follow up electrolytes and CBC in a.m. Rad Onofre MD
[2017-09-14] MEDS: Vancomycin 1gm in NS 250ml 1 GM/250 ML BAG IVPB SCH ×3 (01:58→23:38)
[2017-09-14] MEDS: Pantoprazole 40 mg EC Tab PO SCH ×2 (06:19→18:16)
[2017-09-14] MEDS: Aztreonam 1 Gm in NS 100mL 100 ML IVPB SCH ×3 (06:19→21:17)
[2017-09-14 07:38] LABS: BASO # 0.01 K/mm3 (0.0-2.0); BASO % 0.2 % (0.0-3.0); EOS # 0.1 (0.0-0.7); EOS % 1.4 % (1.5-5.0); GRAN # 4.25 (1.4-6.5); GRAN % 68.1 % (50.0-68.0); HEMOGLOBIN 12.7 g/dL (12.0-16.0); LYMPH # 1.5 (1.2-3.4); LYMPH % 23.2 % (22.0-35.0); MEAN CELL VOLUME 92.5 fl (80.0-105.0); MEAN CORPUSCULAR HEMOGLOBIN 31.8 pg (25.0-35.0); MEAN CORPUSCULAR HGB CONC 34.4 g/dl (31.0-37.0); MONO # 0.4 (0.1-0.6); MONO % 7.1 % (1.0-6.0); RBC 3.99 10^6/uL (3.5-6.1); RED CELL DISTRIBUTION WIDTH 18.1 % (11.5-14.5); WHITE BLOOD COUNT 6.2 10^3/ul (4.5-11.0)
[2017-09-14 08:10] LABS: ALB/GLOB RATIO 0.6 (1.1-1.8); ALBUMIN 1.5 g/dL (3.0-4.8); ALT/SGPT 371 U/L (7-56); AST/SGOT 498 U/L (14-36); BLOOD UREA NITROGEN 21 mg/dL (7-21); CALCIUM 7.5 mg/dL (8.4-10.5); GFR AFRICAN-AMERICAN > 60; GFR NON-AFRICAN AMERICAN > 60
[2017-09-14] MEDS: Potassium Chloride 10 mEq ER Tab PO SCH (08:27)
[2017-09-14] MEDS ORDERED: Potassium Chloride 20 mEq ER Tab PO ONE (09:11)
[2017-09-14] MEDS: oxyCODONE 20 mg ER Tab (oxyCONTIN) PO SCH ×2 (10:45→21:17)
--- NOTE | 2017-09-14 11:43 | CP.PCM.PN ---
<Atul Schilling - Last Filed: 09/14/17 11:40> Subjective - Date & Time of Evaluation Date of Evaluation: 09/14/17 Time of Evaluation: 11:40 - Subjective Subjective: GI Progress Note Dr. Alvarado This 62F was seen and examined this AM at bedside. No acute events overnight. No new complaints at this time. Pt to go for paracentesis today. Pt denied fever, chills, sob, chest pains, abdominal pain, nausea, vomiting or dysuria. Objective - Vital Signs/Intake and Output Vital Signs (last 24 hours): Temp Pulse Resp BP Pulse Ox 97.4 F L 78 19 106/75 94 L 09/14/17 08:09 09/14/17 08:09 09/14/17 08:09 09/14/17 10:44 09/14/17 08:09 Intake and Output: 09/14/17 09/14/17 06:59 18:59 Intake Total 600 Output Total 625 Balance -25 - Medications Medications: Current Medications Acetaminophen (Tylenol 325mg Tab) 650 mg PO Q4H PRN PRN Reason: Pain, Mild (1-3) Last Admin: 09/11/17 05:18 Dose: 650 mg Buspirone HCl (Buspar) 5 mg PO BID [facility] PRN Reason: Protocol Last Admin: 09/14/17 10:43 Dose: 5 mg Citalopram Hydrobromide (Celexa) 20 mg PO DAILY [facility] Last Admin: 09/14/17 10:44 Dose: 20 mg Furosemide (Lasix) 40 mg IVP DAILY [facility] Last Admin: 09/14/17 10:44 Dose: 40 mg Gabapentin (Neurontin) 300 mg PO TID [facility] PRN Reason: Protocol Last Admin: 09/14/17 10:44 Dose: 300 mg Vancomycin HCl (Vancomycin 1gm) 1 gm in 250 mls @ 167 mls/hr IVPB Q12H [facility] PRN Reason: Protocol Last Admin: 09/14/17 10:48 Dose: 167 mls/hr Aztreonam (Azactam 1 Gm) 100 mls @ 100 mls/hr IVPB Q8 [facility] PRN Reason: Protocol Stop: 09/20/17 22:01 Last Admin: 09/14/17 06:19 Dose: 100 mls/hr Mupirocin (Bactroban Ointment) 0 gm TOP BID [facility] Last Admin: 09/14/17 10:45 Dose: 1 appl Ondansetron HCl (Zofran Inj) 4 mg IVP Q6H PRN PRN Reason: Nausea/Vomiting Oxycodone HCl (Oxycontin Extended Release Tab) 40 mg PO Q12 [facility] Last Admin: 09/14/17 10:45 Dose: 40 mg Oxycodone/Acetaminophen (Percocet 10/325 Mg Tab) 1 tab PO Q6 PRN PRN Reason: Pain, moderate (4-7) Pantoprazole Sodium (Protonix Ec Tab) 40 mg PO 0600,1600 [facility] Last Admin: 09/14/17 06:19 Dose: 40 mg Potassium Chloride (Klor-Con 10) 10 meq PO BRK [facility] Last Admin: 09/14/17 08:27 Dose: 10 meq - Labs Labs: 09/14/17 06:50 09/14/17 06:50 PT 12.2 SECONDS (9.4-12.5) 09/11/17 02:25 INR 1.07 (0.93-1.08) 09/11/17 02:25 APTT 26.5 Seconds (25.1-36.5) 09/11/17 02:25 - Constitutional Appears: No Acute Distress - Head Exam Head Exam: ATRAUMATIC, NORMAL INSPECTION, NORMOCEPHALIC - Eye Exam Eye Exam: EOMI, Normal appearance, PERRL - ENT Exam ENT Exam: Mucous Membranes Moist, Normal Exam - Neck Exam Neck Exam: Full ROM, Normal Inspection. absent: Lymphadenopathy - Respiratory Exam Respiratory Exam: Clear to Ausculation Bilateral, NORMAL BREATHING PATTERN - Cardiovascular Exam Cardiovascular Exam: REGULAR RHYTHM, +S1, +S2. absent: Murmur - GI/Abdominal Exam GI & Abdominal Exam: Soft, Normal Bowel Sounds. absent: Tenderness - Neurological Exam Neurological Exam: Alert, Awake, CN II-XII Intact, Oriented x3 - Psychiatric Exam Psychiatric exam: Normal Affect, Normal Mood - Skin Skin Exam: Dry, Intact, Normal Color, Warm Assessment and Plan - Assessment and Plan (Free Text) Assessment: anemia PUD emphysematous cystitis Ascites transaminemia s/p cholecystectomy gait dysfunction degenerative joint disease ureteral stent leg ulcers Plan: Monitor h/h CT abd: ascites and emphasematous cystitis f/u with Urology Dr. Bhatti in regards to emphasematous cystitis F/u paracentesis and serology continue van/merrem lasix regular diet D/W Dr. Jenny Schilling PGY2 <Ami Alvarado V - Last Filed: 09/14/17 20:21> Objective - Vital Signs/Intake and Output Vital Signs (last 24 hours): Temp Pulse Resp BP Pulse Ox 97.5 F L 94 H 20 92/71 L 99 09/14/17 14:50 09/14/17 14:50 09/14/17 14:50 09/14/17 14:50 09/14/17 14:50 Intake and Output: 09/14/17 09/15/17 18:59 06:59 Intake Total 760 Output Total 1300 Balance -540 - Medications Medications: Current Medications Acetaminophen (Tylenol 325mg Tab) 650 mg PO Q4H PRN PRN Reason: Pain, Mild (1-3) Last Admin: 09/11/17 05:18 Dose: 650 mg Buspirone HCl (Buspar) 5 mg PO BID [facility] PRN Reason: Protocol Last Admin: 09/14/17 18:14 Dose: 5 mg Citalopram Hydrobromide (Celexa) 20 mg PO DAILY [facility] Last Admin: 09/14/17 10:44 Dose: 20 mg Furosemide (Lasix) 40 mg IVP DAILY [facility] Last Admin: 09/14/17 10:44 Dose: 40 mg Gabapentin (Neurontin) 300 mg PO TID [facility] PRN Reason: Protocol Last Admin: 09/14/17 18:14 Dose: 300 mg Vancomycin HCl (Vancomycin 1gm) 1 gm in 250 mls @ 167 mls/hr IVPB Q12H [facility] PRN Reason: Protocol Last Admin: 09/14/17 10:48 Dose: 167 mls/hr Aztreonam (Azactam 1 Gm) 100 mls @ 100 mls/hr IVPB Q8 [facility] PRN Reason: Protocol Stop: 09/20/17 22:01 Last Admin: 09/14/17 13:13 Dose: 100 mls/hr Mupirocin (Bactroban Ointment) 0 gm TOP BID [facility] Last Admin: 09/14/17 18:14 Dose: 1 appl Ondansetron HCl (Zofran Inj) 4 mg IVP Q6H PRN PRN Reason: Nausea/Vomiting Oxycodone HCl (Oxycontin Extended Release Tab) 40 mg PO Q12 [facility] Last Admin: 09/14/17 10:45 Dose: 40 mg Oxycodone/Acetaminophen (Percocet 10/325 Mg Tab) 1 tab PO Q6 PRN PRN Reason: Pain, moderate (4-7) Pantoprazole Sodium (Protonix Ec Tab) 40 mg PO 0600,1600 [facility] Last Admin: 09/14/17 18:16 Dose: 40 mg Potassium Chloride (Klor-Con 10) 10 meq PO BRK [facility] Last Admin: 09/14/17 08:27 Dose: 10 meq - Labs Labs: 09/14/17 06:50 09/14/17 06:50 PT 12.2 SECONDS (9.4-12.5) 09/11/17 02:25 INR 1.07 (0.93-1.08) 09/11/17 02:25 APTT 26.5 Seconds (25.1-36.5) 09/11/17 02:25 Attending/Attestation - Attestation I have personally seen and examined this patient.: Yes I have fully participated in the care of the patient.: Yes I have reviewed all pertinent clinical information, including history, physical exam and plan: Yes Notes (Text): This is an addendum to GI progress report dictated by the Scenic Designer.The patient was seen and examined earlier. Medical records, lab studies, imagings were reviewed. Last 24 hours events reviewed. Agreed with the above treatment plan as outlined in Scenic Designer 's notes the with the addition of the following on examination abdomen softly distended Mild suprapubic tenderness present CT scan was reviewed Elevated LFTs etiology is unclear differential diagnosis includes sepsis sarcoidosis drug-induced New onset ascites Scheduled for paracentesis by IR. Requested ascitic fluid albumin and cytology evaluation to be sent History of cellulitis of the legs explain comorbidities including multiple sclerosis Urinary tract infection with emphysematous Recommend urological evaluation Continue antibiotics as per ID Ultrasound of the abdomen and pelvis 09/14/17 20:18
--- NOTE | 2017-09-14 14:57 | CP.PCM.PN ---
Subjective - Date & Time of Evaluation Date of Evaluation: 09/14/17 Time of Evaluation: 11:20 - Subjective Subjective: Less pain in the legs, no fevers, no nausea or diarrhea. Objective - Vital Signs/Intake and Output Vital Signs (last 24 hours): Temp Pulse Resp BP Pulse Ox 97.4 F L 78 19 106/75 94 L 09/14/17 08:09 09/14/17 08:09 09/14/17 08:09 09/14/17 08:09 09/14/17 08:09 Intake and Output: 09/14/17 09/14/17 06:59 18:59 Intake Total 600 Output Total 625 Balance -25 - Medications Medications: Current Medications Acetaminophen (Tylenol 325mg Tab) 650 mg PO Q4H PRN PRN Reason: Pain, Mild (1-3) Last Admin: 09/11/17 05:18 Dose: 650 mg Buspirone HCl (Buspar) 5 mg PO BID [facility] PRN Reason: Protocol Last Admin: 09/13/17 18:07 Dose: 5 mg Citalopram Hydrobromide (Celexa) 20 mg PO DAILY [facility] Last Admin: 09/13/17 10:06 Dose: 20 mg Furosemide (Lasix) 40 mg IVP DAILY [facility] Last Admin: 09/13/17 10:02 Dose: 40 mg Gabapentin (Neurontin) 300 mg PO TID [facility] PRN Reason: Protocol Last Admin: 09/13/17 18:05 Dose: 300 mg Vancomycin HCl (Vancomycin 1gm) 1 gm in 250 mls @ 167 mls/hr IVPB Q12H [facility] PRN Reason: Protocol Last Admin: 09/14/17 01:58 Dose: 167 mls/hr Aztreonam (Azactam 1 Gm) 100 mls @ 100 mls/hr IVPB Q8 [facility] PRN Reason: Protocol Stop: 09/20/17 22:01 Last Admin: 09/14/17 06:19 Dose: 100 mls/hr Mupirocin (Bactroban Ointment) 0 gm TOP BID [facility] Last Admin: 09/13/17 18:07 Dose: Not Given Ondansetron HCl (Zofran Inj) 4 mg IVP Q6H PRN PRN Reason: Nausea/Vomiting Oxycodone HCl (Oxycontin Extended Release Tab) 40 mg PO Q12 [facility] Last Admin: 09/13/17 23:29 Dose: 40 mg Oxycodone/Acetaminophen (Percocet 10/325 Mg Tab) 1 tab PO Q6 PRN PRN Reason: Pain, moderate (4-7) Pantoprazole Sodium (Protonix Ec Tab) 40 mg PO 0600,1600 [facility] Last Admin: 09/14/17 06:19 Dose: 40 mg Potassium Chloride (Klor-Con 10) 10 meq PO BRK [facility] Last Admin: 09/14/17 08:27 Dose: 10 meq - Labs Labs: 09/14/17 06:50 09/14/17 06:50 PT 12.2 SECONDS (9.4-12.5) 09/11/17 02:25 INR 1.07 (0.93-1.08) 09/11/17 02:25 APTT 26.5 Seconds (25.1-36.5) 09/11/17 02:25 - Constitutional Appears: Cachectic, Chronically Ill - Head Exam Head Exam: NORMAL INSPECTION - Neck Exam Neck Exam: absent: Meningismus - Respiratory Exam Respiratory Exam: Decreased Breath Sounds - Cardiovascular Exam Cardiovascular Exam: +S1, +S2 - GI/Abdominal Exam GI & Abdominal Exam: Soft. absent: Tenderness - Extremities Exam Additional comments: both legs with dressings in place Assessment and Plan - Assessment and Plan (Free Text) Plan: Assessment consider bilateral lower extremity cellulitis consider urinary cystitis with gram negative bacilli history of bilateral lower extremity skin and skin structure infection with MRSA and Klebsiella chronic anemia HTN multiple sclerosis sarcoidosis history of pancreatitis S/P left ureteral stent Plan continue Vancomycin and Aztreonam pending day 2 pending identification and sensitivities of the gram negative bacilli in the urine cx follow up podiatry recommendations will continue to monitor clinically
--- NOTE | 2017-09-14 15:53 | US ---
PROCEDURE: Ultrasound guided paracentesis. HISTORY: Multiple sclerosis. New-onset ascites. Abdominal pain and distention. Needs diagnostic and therapeutic paracentesis PHYSICIAN(S): Kamlesh Ayers MD. TECHNIQUE: The relative risks and indications for the procedure were explained to the patient and informed written consent obtained. Sonography of the abdomen was performed in a supine position. This revealed a small to moderate amount of non-loculated ascites, greatest in the right lower quadrant. A puncture site was selected and the area was prepped and draped in the usual sterile fashion. 1% Xylocaine was used to anesthetize the skin and soft tissues. A 7 Welsh paracentesis catheter was trocared into the right lower quadrantand 2300 cc of clear-white fluid aspirated. The appropriate labs were sent. IMPRESSION: Ultrasound-guided paracentesis in the right lower quadrant. 2300 cc of fluid were aspirated. Labs were sent
[2017-09-14 16:03] LABS: BODY FLUID TYPE PERITONEAL/ASCITES
[2017-09-14 17:13] LABS: BF GROSS APPEARANCE SL CLOUDY (CLEAR)
[2017-09-14 17:14] LABS: BODY FLUID MONO/MACROPHAGE 63 % (0-0); BODY FLUID TOTAL COUNT 100 (0-0)
--- NOTE | 2017-09-14 18:29 | PN ---
DATE: SUBJECTIVE: The patient is 62 years old, seen and examined, feels a little better since her blood transfusion, feels more energetic, has appetite today. OBJECTIVE: VITAL SIGNS: She is afebrile, pulse 70, respirations 19, blood pressure 106/75. LUNGS: Bilateral good airflow. No rhonchi or crackle. HEART: S1 and S2 audible. ABDOMEN: Soft, nontender. No rebound, no guarding. She does have small ascites. EXTREMITIES: Bilateral leg +2 edema. LABORATORY DATA: WBC 6.2, hemoglobin 12.7, hematocrit 36.9, platelets 172. Chemistry: Sodium 136, potassium 3.4, chloride 107, CO2 of 25. BUN 21, creatinine 0.7. Blood sugar of 66. AST 498, ALT 371, alkaline phosphatase is 61. Hepatitis profile is negative. CT of the abdomen and pelvis shows large ascites. PLAN: The patient is willing for diagnostic paracentesis today, findings malignant cells. In the meantime, she will be on Azactam. She is on BuSpar, Celexa. Calcium is being supplemented. She is on Lasix, meropenem, Protonix, IV vancomycin. Out of bed to chair. Physical therapy evaluation has been requested. We will follow her up in a.m. Rad Onofre MD
[2017-09-15] MEDS: Aztreonam 1 Gm in NS 100mL 100 ML IVPB SCH ×3 (05:26→21:54)
[2017-09-15] MEDS: Pantoprazole 40 mg EC Tab PO SCH ×2 (05:26→16:35)
[2017-09-15 07:21] LABS: HEMOGLOBIN 11.6 g/dL (12.0-16.0); MEAN CELL VOLUME 93.5 fl (80.0-105.0); MEAN CORPUSCULAR HEMOGLOBIN 31.2 pg (25.0-35.0); MEAN CORPUSCULAR HGB CONC 33.3 g/dl (31.0-37.0); MEAN PLATELET VOLUME 9.5 fl (7.0-11.0); RBC 3.72 10^6/uL (3.5-6.1)
[2017-09-15 07:57] LABS: ALB/GLOB RATIO 0.6 (1.1-1.8); ALBUMIN 1.4 g/dL (3.0-4.8); ALT/SGPT 257 U/L (7-56); AST/SGOT 200 U/L (14-36); BLOOD UREA NITROGEN 18 mg/dL (7-21); CALCIUM 7.2 mg/dL (8.4-10.5); GFR AFRICAN-AMERICAN > 60; GFR NON-AFRICAN AMERICAN > 60
--- NOTE | 2017-09-15 08:41 | US ---
HISTORY: Ascites, abnormal liver function tests COMPARISON: None. TECHNIQUE: Sonographic evaluation of the abdomen. FINDINGS: LIVER: Measures 12.8 cm. There is diffuse increased echogenicity and coarse echotexture. No mass. No intrahepatic bile duct dilatation. GALLBLADDER: Surgically absent. COMMON BILE DUCT: Measures 6.5 mm. No stones. No dilatation. PANCREAS: Obscured by bowel gas. RIGHT KIDNEY: Measures 10.4cm. Normal echogenicity. No calculus, mass, or hydronephrosis. LEFT KIDNEY: Measures 9.3cm. Normal echogenicity. No calculus, mass, or hydronephrosis. There is a 2.6 x 2.0 x 2.1 cm cyst in the upper pole. SPLEEN: Normal in size and contour. No mass. AORTA: No aneurysmal dilatation. IVC: Unremarkable. OTHER FINDINGS: There is moderate abdominal ascites. IMPRESSION: Fatty liver. Moderate abdominal ascites.
--- NOTE | 2017-09-15 11:16 | US ---
PROCEDURE: Portal vein duplex ultrasound. CLINICAL HISTORY: Deteriorating liver function. Evaluate for portal vein thrombosis. New onset ascites PHYSICIAN(S): Kamlehs Ayers M.D. FINDINGS: The extrahepatic portal vein is patent with hepatopetal flow. No sonographic evidence for thrombus or obstruction is seen. The 3 hepatic veins are visualized centrally and patent. The hepatic artery is patent. Ascites is noted in the upper abdomen. The spleen is normal in size. IMPRESSION: 1. Patent portal vein with hepatopetal flow. 2. Some residual ascites in the upper abdomen post paracentesis
[2017-09-15] MEDS: Potassium Chloride 10 mEq ER Tab PO SCH (11:21)
[2017-09-15] MEDS: oxyCODONE 20 mg ER Tab (oxyCONTIN) PO SCH ×2 (11:24→21:53)
--- NOTE | 2017-09-15 11:48 | CP.PCM.PN ---
<Heena Xiao - Last Filed: 09/15/17 11:45> Subjective - Date & Time of Evaluation Date of Evaluation: 09/15/17 Time of Evaluation: 11:45 - Subjective Subjective: Podiatry Progress Note 62 y/o female seen at bedside with attending Dr. Martínez regarding bilateral leg cellulitis with right leg weeping superficial ulcerations. Pt states her legs feel much better now than they did on admission, and are more comfortable. States she is not having any pain or soreness in the legs right now. Says the creams are helping. Denies F/C/N/V/CP/SOB Objective - Vital Signs/Intake and Output Vital Signs (last 24 hours): Temp Pulse Resp BP Pulse Ox 97.5 F L 80 18 101/69 95 09/15/17 07:30 09/15/17 07:30 09/15/17 07:30 09/15/17 11:22 09/15/17 07:30 Intake and Output: 09/15/17 09/15/17 06:59 18:59 Intake Total 1427 Output Total 500 Balance 927 - Medications Medications: Current Medications Acetaminophen (Tylenol 325mg Tab) 650 mg PO Q4H PRN PRN Reason: Pain, Mild (1-3) Last Admin: 09/11/17 05:18 Dose: 650 mg Buspirone HCl (Buspar) 5 mg PO BID [facility] PRN Reason: Protocol Last Admin: 09/15/17 11:21 Dose: 5 mg Citalopram Hydrobromide (Celexa) 20 mg PO DAILY [facility] Last Admin: 09/15/17 11:22 Dose: 20 mg Furosemide (Lasix) 40 mg IVP DAILY [facility] Last Admin: 09/15/17 11:22 Dose: 40 mg Gabapentin (Neurontin) 300 mg PO TID [facility] PRN Reason: Protocol Last Admin: 09/15/17 11:21 Dose: 300 mg Vancomycin HCl (Vancomycin 1gm) 1 gm in 250 mls @ 167 mls/hr IVPB Q12H [facility] PRN Reason: Protocol Last Admin: 09/14/17 23:38 Dose: 167 mls/hr Aztreonam (Azactam 1 Gm) 100 mls @ 100 mls/hr IVPB Q8 [facility] PRN Reason: Protocol Stop: 09/20/17 22:01 Last Admin: 09/15/17 05:26 Dose: 100 mls/hr Mupirocin (Bactroban Ointment) 0 gm TOP BID [facility] Last Admin: 09/15/17 11:27 Dose: 1 appl Ondansetron HCl (Zofran Inj) 4 mg IVP Q6H PRN PRN Reason: Nausea/Vomiting Last Admin: 09/15/17 11:34 Dose: 4 mg Pantoprazole Sodium (Protonix Ec Tab) 40 mg PO 0600,1600 [facility] Last Admin: 09/15/17 05:26 Dose: 40 mg Potassium Chloride (Klor-Con 10) 10 meq PO BRK [facility] Last Admin: 09/15/17 11:21 Dose: 10 meq - Labs Labs: 09/15/17 06:30 09/15/17 06:30 PT 12.2 SECONDS (9.4-12.5) 09/11/17 02:25 INR 1.07 (0.93-1.08) 09/11/17 02:25 APTT 26.5 Seconds (25.1-36.5) 09/11/17 02:25 - Constitutional Appears: Well, Non-toxic, No Acute Distress - Extremities Exam Additional comments: Vascular: palpable DP pulses bilateral and faintly palpable PT pulses CFT 2 sec x 10. Temperatue gradient reversed Neurologic: sensation to the feet is intact to sharp/dull discrimination and light touch Derm: redness of both LE with mild edema, noted to be significantly resolving since admission. - minimal drainage noted on bandages of right leg. No open wounds. Ortho: mild to moderate tenderness on minimal palpation and on slight movement of the legs, R worse than L - Neurological Exam Neurological Exam: Alert, Awake, Oriented x3 - Psychiatric Exam Psychiatric exam: Normal Affect, Normal Mood Assessment and Plan - Assessment and Plan (Free Text) Assessment: Assessment: Cellulitis bilateral lower extremities Plan: Seen and examined with attending Dr. Martínez Local care daily with cleansing of legs with wash cloths Apply bactroban cream ABD and DSD daily Heel pads to offload and prevent heel decubitis ulcers Will continue to follow patient while in house <Jose Guadalupe Martínez - Last Filed: 09/15/17 15:44> Objective - Vital Signs/Intake and Output Vital Signs (last 24 hours): Temp Pulse Resp BP Pulse Ox 97.5 F L 80 18 101/69 95 09/15/17 07:30 09/15/17 07:30 09/15/17 07:30 09/15/17 11:22 09/15/17 07:30 Intake and Output: 09/15/17 09/15/17 06:59 18:59 Intake Total 1427 960 Output Total 500 900 Balance 927 60 - Medications Medications: Current Medications Acetaminophen (Tylenol 325mg Tab) 650 mg PO Q4H PRN PRN Reason: Pain, Mild (1-3) Last Admin: 09/11/17 05:18 Dose: 650 mg Buspirone HCl (Buspar) 5 mg PO BID [facility] PRN Reason: Protocol Last Admin: 09/15/17 11:21 Dose: 5 mg Citalopram Hydrobromide (Celexa) 20 mg PO DAILY [facility] Last Admin: 09/15/17 11:22 Dose: 20 mg Furosemide (Lasix) 40 mg IVP DAILY [facility] Last Admin: 09/15/17 11:22 Dose: 40 mg Gabapentin (Neurontin) 300 mg PO TID [facility] PRN Reason: Protocol Last Admin: 09/15/17 13:31 Dose: 300 mg Vancomycin HCl (Vancomycin 1gm) 1 gm in 250 mls @ 167 mls/hr IVPB Q12H [facility] PRN Reason: Protocol Last Admin: 09/15/17 13:30 Dose: 167 mls/hr Aztreonam (Azactam 1 Gm) 100 mls @ 100 mls/hr IVPB Q8 [facility] PRN Reason: Protocol Stop: 09/20/17 22:01 Last Admin: 09/15/17 05:26 Dose: 100 mls/hr Mupirocin (Bactroban Ointment) 0 gm TOP BID [facility] Last Admin: 09/15/17 11:27 Dose: 1 appl Ondansetron HCl (Zofran Inj) 4 mg IVP Q6H PRN PRN Reason: Nausea/Vomiting Last Admin: 09/15/17 11:34 Dose: 4 mg Pantoprazole Sodium (Protonix Ec Tab) 40 mg PO 0600,1600 [facility] Last Admin: 09/15/17 05:26 Dose: 40 mg Potassium Chloride (Klor-Con 10) 10 meq PO BRK [facility] Last Admin: 09/15/17 11:21 Dose: 10 meq - Labs Labs: 09/15/17 06:30 09/15/17 06:30 PT 12.2 SECONDS (9.4-12.5) 09/11/17 02:25 INR 1.07 (0.93-1.08) 09/11/17 02:25 APTT 26.5 Seconds (25.1-36.5) 09/11/17 02:25 Attending/Attestation - Attestation I have personally seen and examined this patient.: Yes I have fully participated in the care of the patient.: Yes I have reviewed all pertinent clinical information, including history, physical exam and plan: Yes
[2017-09-15] MEDS: Vancomycin 1gm in NS 250ml 1 GM/250 ML BAG IVPB SCH ×2 (13:30→23:28)
--- NOTE | 2017-09-15 15:05 | CT ---
PROCEDURE: CT Chest without contrast HISTORY: ?malignancy COMPARISON: CT of the abdomen 04/20/2017 TECHNIQUE: Contiguous axial images were obtained through the chest without intravenous contrast enhancement. Sagittal and coronal reconstructions were performed. Radiation dose (DLP): 212 mGy-cm. This CT exam was performed using one or more of the following dose reduction techniques: Automated exposure control, adjustment of the mA and/or kV according to patient size, and/or use of iterative reconstruction technique. FINDINGS: LUNGS: There is dense consolidation of both lung bases posteriorly with air bronchograms. Findings are consistent with pneumonia. These findings were not present on the previous exam MEDIASTINUM: Unremarkable thoracic aorta. No aneurysm. Normal sized heart. Main pulmonary artery unremarkable. No vascular congestion. No lymphadenopathy. PLEURA: No pleural fluid. No pneumothorax. BONES: No fracture. No destructive lesion. UPPER ABDOMEN: There is a large amount of ascites OTHER FINDINGS: None. IMPRESSION: There is dense consolidation of both lung bases posteriorly with air bronchograms. Findings are consistent with pneumonia.
--- NOTE | 2017-09-15 16:17 | CP.PCM.PN ---
Subjective - Date & Time of Evaluation Date of Evaluation: 09/15/17 Time of Evaluation: 12:05 - Subjective Subjective: Less pain in the legs, no abdominal pain, no fevers, no headache, no nausea. Objective - Vital Signs/Intake and Output Vital Signs (last 24 hours): Temp Pulse Resp BP Pulse Ox 97.5 F L 80 18 101/69 95 09/15/17 07:30 09/15/17 07:30 09/15/17 07:30 09/15/17 07:30 09/15/17 07:30 Intake and Output: 09/15/17 09/15/17 06:59 18:59 Intake Total 1427 Output Total 500 Balance 927 - Medications Medications: Current Medications Acetaminophen (Tylenol 325mg Tab) 650 mg PO Q4H PRN PRN Reason: Pain, Mild (1-3) Last Admin: 09/11/17 05:18 Dose: 650 mg Buspirone HCl (Buspar) 5 mg PO BID [facility] PRN Reason: Protocol Last Admin: 09/14/17 18:14 Dose: 5 mg Citalopram Hydrobromide (Celexa) 20 mg PO DAILY [facility] Last Admin: 09/14/17 10:44 Dose: 20 mg Furosemide (Lasix) 40 mg IVP DAILY [facility] Last Admin: 09/14/17 10:44 Dose: 40 mg Gabapentin (Neurontin) 300 mg PO TID [facility] PRN Reason: Protocol Last Admin: 09/14/17 18:14 Dose: 300 mg Vancomycin HCl (Vancomycin 1gm) 1 gm in 250 mls @ 167 mls/hr IVPB Q12H [facility] PRN Reason: Protocol Last Admin: 09/14/17 23:38 Dose: 167 mls/hr Aztreonam (Azactam 1 Gm) 100 mls @ 100 mls/hr IVPB Q8 [facility] PRN Reason: Protocol Stop: 09/20/17 22:01 Last Admin: 09/15/17 05:26 Dose: 100 mls/hr Mupirocin (Bactroban Ointment) 0 gm TOP BID [facility] Last Admin: 09/14/17 18:14 Dose: 1 appl Ondansetron HCl (Zofran Inj) 4 mg IVP Q6H PRN PRN Reason: Nausea/Vomiting Oxycodone HCl (Oxycontin Extended Release Tab) 40 mg PO Q12 [facility] Last Admin: 09/14/17 21:17 Dose: 40 mg Oxycodone/Acetaminophen (Percocet 10/325 Mg Tab) 1 tab PO Q6 PRN PRN Reason: Pain, moderate (4-7) Pantoprazole Sodium (Protonix Ec Tab) 40 mg PO 0600,1600 [facility] Last Admin: 09/15/17 05:26 Dose: 40 mg Potassium Chloride (Klor-Con 10) 10 meq PO BRK [facility] Last Admin: 09/14/17 08:27 Dose: 10 meq - Labs Labs: 09/15/17 06:30 09/15/17 06:30 PT 12.2 SECONDS (9.4-12.5) 09/11/17 02:25 INR 1.07 (0.93-1.08) 09/11/17 02:25 APTT 26.5 Seconds (25.1-36.5) 09/11/17 02:25 - Constitutional Appears: Cachectic, Chronically Ill - Head Exam Head Exam: NORMAL INSPECTION - Respiratory Exam Respiratory Exam: Decreased Breath Sounds - Cardiovascular Exam Cardiovascular Exam: +S1, +S2 - GI/Abdominal Exam GI & Abdominal Exam: Soft. 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
--- NOTE | 2017-09-16 01:01 | PN ---
DATE: 09/15/2017 SUBJECTIVE: This patient was seen and evaluated earlier today, status post large-volume paracentesis yesterday, had 2300 mL of fluid drained. The patient is much more comfortable today, tolerating the diet. PHYSICAL EXAMINATION: VITAL SIGNS: Temperature is 97.5, blood pressure 101/69, respirations 18, and O2 saturation is 95% on room air. HEENT: Atraumatic, anicteric. NECK: Supple. HEART: S1 and S2 heard. LUNGS: Bilateral air entry present. ABDOMEN: Soft. EXTREMITIES: Leg dressing is present. LABORATORY DATA: Hemoglobin is 7.6, hematocrit 34.8, WBC 5.0, and platelets 146. LFTs showing a downward trend, AST 200, ALT 257, and alkaline phosphatase 464. IMPRESSION: This is a 62-year-old patient, admitted with anemia and weight loss. The patient was found to have a new onset of ascites, status post large volume paracentesis done. The patient also was found to have emphysematous urinary tract infection with air in the bladder wall noticed. The patient has elevated liver function tests. The patient is presently on antibiotics. The cell count analysis was reviewed. It is not suggestive of spontaneous bacterial peritonitis. Albumin is pending. 1. History of sepsis. 2. Emphysematous cystitis. 3. Elevated liver function tests. 4. Anemia, status post confusion. 5. New-onset ascites, status post paracentesis. cell count analysis not suggestive of spontaneous bacterial peritonitis. Serum albumin is pending. PLAN: 1. Continue the antibiotics. 2. PPI. 3. Follow up with the hemoglobin and hematocrit. 4. We will consider upper GI endoscopy to rule out varices and to rule out upper GI source of blood loss. Thank you very much for allowing us to participate in the care of the patient. Ami Alvarado MD MTDSharita
[2017-09-16] MEDS: Pantoprazole 40 mg EC Tab PO SCH ×2 (05:25→17:49)
[2017-09-16] MEDS: Aztreonam 1 Gm in NS 100mL 100 ML IVPB SCH ×3 (05:25→21:16)
[2017-09-16] MEDS: Oxycodone/Acetaminophen 10/325 mg Tab PO PRN ×2 (05:25→21:16)
[2017-09-16 06:51] LABS: MEAN CELL VOLUME 94.2 fl (80.0-105.0); MEAN CORPUSCULAR HEMOGLOBIN 31.6 pg (25.0-35.0); MEAN CORPUSCULAR HGB CONC 33.5 g/dl (31.0-37.0); MEAN PLATELET VOLUME 9.5 fl (7.0-11.0); RBC 3.8 10^6/uL (3.5-6.1); RED CELL DISTRIBUTION WIDTH 17.7 % (11.5-14.5); WHITE BLOOD COUNT 5.1 10^3/ul (4.5-11.0)
[2017-09-16 07:39] LABS: ALB/GLOB RATIO 0.6 (1.1-1.8); ALBUMIN 1.6 g/dL (3.0-4.8); ALT/SGPT 223 U/L (7-56); AST/SGOT 132 U/L (14-36); BLOOD UREA NITROGEN 19 mg/dL (7-21); CALCIUM 7.5 mg/dL (8.4-10.5); GFR AFRICAN-AMERICAN > 60; GFR NON-AFRICAN AMERICAN > 60
--- NOTE | 2017-09-16 08:32 | PN ---
DATE: SUBJECTIVE: The patient is 62 years old, seen and examined, states she is doing well. Her leg swelling has improved. Her abdominal girth has improved since she has paracentesis and had 2300 mL fluid drained. She is eating well. No nausea or vomiting, no diarrhea. She still has indwelling catheter. I offered her to remove the catheter, it is not good, can result into UTI, but patient is adamant and wants to keep it since she is on Lasix she is unable to run to the bathroom. PHYSICAL EXAMINATION VITAL SIGNS: The patient is afebrile, pulse 86, respiration 18, blood pressure 99/67. LUNGS: Bilateral good air flow. No rhonchi or crackles. Decreased breath sound at bases. HEART: S1, S2 audible. ABDOMEN: Soft, slight fluid thrill. EXTREMITIES: Bilateral leg, +2 edema. LABORATORY DATA: WBC is 5.0, hemoglobin 11.6, hematocrit 34.8, platelet of 146. Chemistry: Sodium 139, potassium 3.7, chloride 111, CO2 of 26, BUN 18, creatinine 0.6, blood sugar of . Her AST 200, ALT 257, alkaline phosphatase is 467. She has urinalysis showing E coli UTI, not ESBL positive. ASSESSMENT: 1. Significant weight loss, rule out underlying malignancy. 2. Chronic anemia. 3. Bilateral leg edema. 4. Hypoalbuminemia. 5. History of depression. PLAN: Currently the patient is on vancomycin and Azactam. Since SHE IS ALLERGIC TO PENICILLIN, we will continue that and follow up paracentesis results and will also request Dr. Bhatti to evaluate the patient since there is emphysematous changes in the urinary bladder wall. Rad Onofre MD
[2017-09-16] MEDS: oxyCODONE 20 mg ER Tab (oxyCONTIN) PO SCH ×2 (09:59→21:16)
[2017-09-16] MEDS: Potassium Chloride 10 mEq ER Tab PO SCH (10:00)
[2017-09-16] MEDS: Vancomycin 1gm in NS 250ml 1 GM/250 ML BAG IVPB SCH ×2 (11:35→23:04)
--- NOTE | 2017-09-16 11:44 | CP.PCM.PN ---
<DameonHeena - Last Filed: 09/16/17 11:41> Subjective - Date & Time of Evaluation Date of Evaluation: 09/16/17 Time of Evaluation: 11:42 - Subjective Subjective: Podiatry Progress Note 62 y/o female seen at bedside this morning regarding bilateral leg cellulitis with right leg weeping superficial ulcerations. Pt states her legs feel much better now than they did on admission. She feels the swelling has gone down a lot in both legs. States she is not having any pain or soreness in the legs right now. Says the creams are helping with her dry sore feet as well. Denies F/ C/N/V/CP/SOB Objective - Vital Signs/Intake and Output Vital Signs (last 24 hours): Temp Pulse Resp BP Pulse Ox 98.0 F 82 20 110/80 96 09/16/17 07:29 09/16/17 07:29 09/16/17 07:29 09/16/17 10:00 09/16/17 07:29 Intake and Output: 09/16/17 09/16/17 06:59 18:59 Intake Total 240 Output Total 1590 Balance -1350 - Medications Medications: Current Medications Acetaminophen (Tylenol 325mg Tab) 650 mg PO Q4H PRN PRN Reason: Pain, Mild (1-3) Last Admin: 09/11/17 05:18 Dose: 650 mg Buspirone HCl (Buspar) 5 mg PO BID [facility] PRN Reason: Protocol Last Admin: 09/16/17 10:00 Dose: 5 mg Citalopram Hydrobromide (Celexa) 20 mg PO DAILY [facility] Last Admin: 09/16/17 10:00 Dose: 20 mg Furosemide (Lasix) 40 mg IVP DAILY [facility] Last Admin: 09/16/17 10:00 Dose: 40 mg Gabapentin (Neurontin) 300 mg PO TID [facility] PRN Reason: Protocol Last Admin: 09/16/17 10:00 Dose: 300 mg Vancomycin HCl (Vancomycin 1gm) 1 gm in 250 mls @ 167 mls/hr IVPB Q12H [facility] PRN Reason: Protocol Last Admin: 09/16/17 11:35 Dose: 167 mls/hr Aztreonam (Azactam 1 Gm) 100 mls @ 100 mls/hr IVPB Q8 [facility] PRN Reason: Protocol Stop: 09/20/17 22:01 Last Admin: 09/16/17 05:25 Dose: 100 mls/hr Mupirocin (Bactroban Ointment) 0 gm TOP BID [facility] Last Admin: 09/16/17 11:36 Dose: 1 appl Ondansetron HCl (Zofran Inj) 4 mg IVP Q6H PRN PRN Reason: Nausea/Vomiting Last Admin: 09/16/17 10:01 Dose: 4 mg Oxycodone HCl (Oxycontin Extended Release Tab) 40 mg PO Q12 [facility] Last Admin: 09/16/17 09:59 Dose: 40 mg Oxycodone/Acetaminophen (Percocet 10/325 Mg Tab) 1 tab PO Q6H PRN PRN Reason: Pain, moderate (4-7) Last Admin: 09/16/17 05:25 Dose: 1 tab Pantoprazole Sodium (Protonix Ec Tab) 40 mg PO 0600,1600 [facility] Last Admin: 09/16/17 05:25 Dose: 40 mg Potassium Chloride (Klor-Con 10) 10 meq PO BRK [facility] Last Admin: 09/16/17 10:00 Dose: 10 meq - Labs Labs: 09/16/17 06:10 09/16/17 06:10 PT 12.2 SECONDS (9.4-12.5) 09/11/17 02:25 INR 1.07 (0.93-1.08) 09/11/17 02:25 APTT 26.5 Seconds (25.1-36.5) 09/11/17 02:25 - Constitutional Appears: Well, Non-toxic, No Acute Distress - Extremities Exam Additional comments: Vascular: palpable DP pulses bilateral and faintly palpable PT pulses CFT 2 sec x 10. Temperatue gradient reversed Neurologic: sensation to the feet is intact to sharp/dull discrimination and light touch Derm: redness of both LE with mild edema, significantly decreased since admission. - today, no drainage noted on bandages of right leg. No open wounds. Ortho: no tenderness to palpation of bilateral legs. mild tenderness to palpation of R plantar heel - Neurological Exam Neurological Exam: Alert, Awake, Oriented x3 - Psychiatric Exam Psychiatric exam: Normal Affect, Normal Mood Assessment and Plan - Assessment and Plan (Free Text) Assessment: Cellulitis bilateral lower extremities Plan: Seen and examined Discussed with attending Dr. Martínez Local care daily with cleansing of legs with wash cloths Apply bactroban cream to R leg No wound dressings needed at this time as there is no longer drainage Dressings prn with ABD and DSD to RLE Heel pads to offload and prevent heel decubitus ulcers Will continue to follow patient while in house <Jose Guadalupe Martínez - Last Filed: 09/16/17 13:03> Objective - Vital Signs/Intake and Output Vital Signs (last 24 hours): Temp Pulse Resp BP Pulse Ox 97 F L 81 18 111/82 99 09/16/17 12:34 09/16/17 12:34 09/16/17 12:34 09/16/17 12:34 09/16/17 12:34 Intake and Output: 09/16/17 09/16/17 06:59 18:59 Intake Total 240 Output Total 1590 Balance -1350 - Medications Medications: Current Medications Acetaminophen (Tylenol 325mg Tab) 650 mg PO Q4H PRN PRN Reason: Pain, Mild (1-3) Last Admin: 09/11/17 05:18 Dose: 650 mg Buspirone HCl (Buspar) 5 mg PO BID [facility] PRN Reason: Protocol Last Admin: 09/16/17 10:00 Dose: 5 mg Citalopram Hydrobromide (Celexa) 20 mg PO DAILY [facility] Last Admin: 09/16/17 10:00 Dose: 20 mg Furosemide (Lasix) 40 mg IVP DAILY [facility] Last Admin: 09/16/17 10:00 Dose: 40 mg Gabapentin (Neurontin) 300 mg PO TID [facility] PRN Reason: Protocol Last Admin: 09/16/17 10:00 Dose: 300 mg Vancomycin HCl (Vancomycin 1gm) 1 gm in 250 mls @ 167 mls/hr IVPB Q12H [facility] PRN Reason: Protocol Last Admin: 09/16/17 11:35 Dose: 167 mls/hr Aztreonam (Azactam 1 Gm) 100 mls @ 100 mls/hr IVPB Q8 [facility] PRN Reason: Protocol Stop: 09/20/17 22:01 Last Admin: 09/16/17 05:25 Dose: 100 mls/hr Mupirocin (Bactroban Ointment) 0 gm TOP BID [facility] Last Admin: 09/16/17 11:36 Dose: 1 appl Ondansetron HCl (Zofran Inj) 4 mg IVP Q6H PRN PRN Reason: Nausea/Vomiting Last Admin: 09/16/17 10:01 Dose: 4 mg Oxycodone HCl (Oxycontin Extended Release Tab) 40 mg PO Q12 [facility] Last Admin: 09/16/17 09:59 Dose: 40 mg Oxycodone/Acetaminophen (Percocet 10/325 Mg Tab) 1 tab PO Q6H PRN PRN Reason: Pain, moderate (4-7) Last Admin: 09/16/17 05:25 Dose: 1 tab Pantoprazole Sodium (Protonix Ec Tab) 40 mg PO 0600,1600 [facility] Last Admin: 09/16/17 05:25 Dose: 40 mg Potassium Chloride (Klor-Con 10) 10 meq PO BRK [facility] Last Admin: 09/16/17 10:00 Dose: 10 meq - Labs Labs: 09/16/17 06:10 09/16/17 06:10 PT 12.2 SECONDS (9.4-12.5) 09/11/17 02:25 INR 1.07 (0.93-1.08) 09/11/17 02:25 APTT 26.5 Seconds (25.1-36.5) 09/11/17 02:25 Attending/Attestation - Attestation I have personally seen and examined this patient.: Yes I have fully participated in the care of the patient.: Yes I have reviewed all pertinent clinical information, including history, physical exam and plan: Yes
--- NOTE | 2017-09-16 14:00 | CP.PCM.PN ---
Subjective - Date & Time of Evaluation Date of Evaluation: 09/16/17 Time of Evaluation: 08:50 - Subjective Subjective: Patient is for EGD today, no fevers, not in distress, still with some pain in the lower extremities but less. Objective - Vital Signs/Intake and Output Vital Signs (last 24 hours): Temp Pulse Resp BP Pulse Ox 98.0 F 82 20 117/83 96 09/16/17 07:29 09/16/17 07:29 09/16/17 07:29 09/16/17 07:29 09/16/17 07:29 Intake and Output: 09/16/17 09/16/17 06:59 18:59 Intake Total 240 Output Total 1590 Balance -1350 - Medications Medications: Current Medications Acetaminophen (Tylenol 325mg Tab) 650 mg PO Q4H PRN PRN Reason: Pain, Mild (1-3) Last Admin: 09/11/17 05:18 Dose: 650 mg Buspirone HCl (Buspar) 5 mg PO BID [facility] PRN Reason: Protocol Last Admin: 09/15/17 17:12 Dose: 5 mg Citalopram Hydrobromide (Celexa) 20 mg PO DAILY [facility] Last Admin: 09/15/17 11:22 Dose: 20 mg Furosemide (Lasix) 40 mg IVP DAILY [facility] Last Admin: 09/15/17 11:22 Dose: 40 mg Gabapentin (Neurontin) 300 mg PO TID [facility] PRN Reason: Protocol Last Admin: 09/15/17 17:12 Dose: 300 mg Vancomycin HCl (Vancomycin 1gm) 1 gm in 250 mls @ 167 mls/hr IVPB Q12H [facility] PRN Reason: Protocol Last Admin: 09/15/17 23:28 Dose: 167 mls/hr Aztreonam (Azactam 1 Gm) 100 mls @ 100 mls/hr IVPB Q8 [facility] PRN Reason: Protocol Stop: 09/20/17 22:01 Last Admin: 09/16/17 05:25 Dose: 100 mls/hr Mupirocin (Bactroban Ointment) 0 gm TOP BID [facility] Last Admin: 09/15/17 17:13 Dose: 1 appl Ondansetron HCl (Zofran Inj) 4 mg IVP Q6H PRN PRN Reason: Nausea/Vomiting Last Admin: 09/15/17 11:34 Dose: 4 mg Oxycodone HCl (Oxycontin Extended Release Tab) 40 mg PO Q12 [facility] Last Admin: 09/15/17 21:53 Dose: 40 mg Oxycodone/Acetaminophen (Percocet 10/325 Mg Tab) 1 tab PO Q6H PRN PRN Reason: Pain, moderate (4-7) Last Admin: 09/16/17 05:25 Dose: 1 tab Pantoprazole Sodium (Protonix Ec Tab) 40 mg PO 0600,1600 [facility] Last Admin: 09/16/17 05:25 Dose: 40 mg Potassium Chloride (Klor-Con 10) 10 meq PO BRK [facility] Last Admin: 09/15/17 11:21 Dose: 10 meq - Labs Labs: 09/16/17 06:10 09/16/17 06:10 PT 12.2 SECONDS (9.4-12.5) 09/11/17 02:25 INR 1.07 (0.93-1.08) 09/11/17 02:25 APTT 26.5 Seconds (25.1-36.5) 09/11/17 02:25 - Constitutional Appears: Chronically Ill - Head Exam Head Exam: NORMAL INSPECTION - ENT Exam ENT Exam: Mucous Membranes Moist - Respiratory Exam Respiratory Exam: Decreased Breath Sounds - Cardiovascular Exam Cardiovascular Exam: +S1, +S2 - GI/Abdominal Exam GI & Abdominal Exam: Soft. absent: Tenderness - Extremities Exam Additional comments: both legs with dressings in place Assessment and Plan - Assessment and Plan (Free Text) Plan: Assessment consider bilateral lower extremity cellulitis, slowly improving consider urinary cystitis with E. 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
[2017-09-16] MEDS ORDERED: Propofol 10 mg/ml Inj (20 ML) ONE (14:11)
[2017-09-16] MEDS ORDERED: Sodium Chloride 0.9% 1,000 ML IV SCH (14:45)
--- NOTE | 2017-09-16 15:51 | CON ---
DATE: 09/16/2017 PULMONARY CONSULTATION REFERRING PHYSICIAN: Dr. Rad Onofre. REASON FOR CONSULTATION: Rule out pneumonia. HISTORY OF PRESENT ILLNESS: The patient is a chronically ill 62-year-old female, with past medical history significant for anemia, hypertension, multiple sclerosis, sarcoidosis (on no systemic treatment), pancreatitis, left ureteral stent, who presented to [facility] - originally on 09/01/2017 - because of increasing weakness, as well as abdominal swelling. In the emergency room, the patient was noted to be severely anemic. In addition, her liver function tests were elevated. She was thus admitted for additional evaluation. The patient denies shortness of breath at rest, dyspnea on exertion, cough, or sputum production. The patient also denies chest pain, coughing up of blood, or chest pain - made worse with deep respirations. There is no history of temperatures, chills or infectious exposure. There is no history of night sweats. There is a history of weight loss with decreased appetite over the past 6 months. No history of calf pains. No history of syncope or diaphoresis. No history of recent travel or trauma. REVIEW OF SYSTEMS: There is no history of nausea, vomiting or diarrhea. No acute urinary symptoms. Rest of the review of systems is negative. ALLERGIES: CODEINE, PENICILLINS AND SULFONAMIDES. SOCIAL HISTORY: Positive for former tobacco usage. No alcohol. FAMILY HISTORY: No inheritable diseases. HOME MEDICATIONS: Include oxycodone, BuSpar, Demadex, Percocet, Mobic, Claritin, Neurontin, Adderall, Celexa and vitamins. PHYSICAL EXAMINATION: GENERAL: The patient appears comfortable at rest. She is not short of breath. She is cachectic appearing. VITAL SIGNS: Temperature is 98.0, pulse 82, respirations 18/20, blood pressure 117/83. Oxygen saturation on room air is 96-99%. HEENT: Normocephalic, atraumatic. NECK: No JVD. CARDIOVASCULAR: Positive S1, S2. No S3 gallop. LUNGS: Decreased breath sounds at the bases. No rhonchi. No wheezing. EXTREMITIES: There is significant edema in both her lower extremities. No cyanosis or clubbing. Calves are nontender to palpation. GI: Abdomen is soft. It is mildly distended. It is nontender. Bowel sounds are positive. SKIN: No acute rashes. NEUROLOGIC: Exam limited to present time. PERTINENT LABORATORY DATA: CAT scan of the chest was done yesterday and reviewed. There are very small bilateral pleural effusions noted. There is very minimal consolidation at the right base - consistent with atelectasis. At the left base, there is a little more consolidation (still minimal) - with air bronchograms - consistent with atelectasis or pneumonia. There is no lymphadenopathy. CBC: White count 5.1, hemoglobin 12.0, hematocrit 35.8, platelets of 116,000. Complete metabolic profile: Chloride 109, calcium 7.5, AST 132, ALT 223, alkaline phosphatase 479, total protein 4.3, albumin 1.6. Rest of the metabolic profile is within normal limits. Abdominal and pelvic CAT scan was also done on 09/12/2017. There is severe ascites noted. IMPRESSION: 1. Rule out pneumonia versus atelectasis - left base. 2. Minimal atelectasis - right base. 3. Small bilateral pleural effusions. 4. Significant ascites. 5. Anemia. 6. Increased liver function enzymes. 7. Multiple sclerosis. PLAN: The patient presents to [facility] with main complaints of increasing generalized weakness, as well as swelling to her abdomen and lower extremities. Again, in the emergency room, the patient was noted to be severely anemic, and with increased liver function enzymes. She was thus admitted for additional evaluation. I did review the CAT scan of the chest. As above, the right base shows a very small pleural effusion with very minimal consolidation. Again, there is a little more consolidation at the left base (still minimal) with air bronchograms - possibly consistent with pneumonia or atelectasis. I will order a stat procalcitonin level - to help us distinguish whether we are dealing with an acute pneumonia or not. As above, the patient offers no pulmonary symptoms at this point in time. There is no bronchospasm on physical exam. Oxygen saturation on room air is 96-99%. I will start the patient on frequent incentive spirometry this morning. I would also like to see the patient out of bed, if possible. Gastrointestinal evaluation is ongoing. The patient is status post paracentesis. We are awaiting additional results on that fluid. I also discussed the case with the nurse practitioner and 5R nurse at length. The patient is for probable endoscopy later today. The patient has been transfused, and her hemoglobin is much improved. The clinical status of this patient appears improved - compared to the initial presentation. However, her future status/prognosis appears very guarded at best/poor. I will discuss the above with the attending physician. Thank you very much for this pulmonary consultation. Donavan Acevedo MD [facility]
--- NOTE | 2017-09-17 02:18 | PN ---
DATE: SUBJECTIVE: Patient is a 62-year-old, seen earlier this morning prior to going for endoscopy, complained of decreased appetite, complained of generalized weakness. No nausea, vomiting or diarrhea. Now she is n.p.o. She is going for endoscopy. PHYSICAL EXAMINATION: VITAL SIGNS: She is afebrile, pulse 69, respirations 19, blood pressure 92/64. LUNGS: Bilateral fair airflow, decreased at bases. HEART: S1 and S2 audible. ABDOMEN: Soft. Slight epigastric discomfort. NEUROLOGIC: She is awake, alert, oriented. Able to communicate. EXTREMITIES: Bilateral leg, +1 edema. LABORATORY EXAMINATION: WBCs 5.1, hemoglobin 12, hematocrit 35, platelet 116. Chemistry: Sodium 137, potassium 4.0, chloride 109, CO2 28, BUN 19, creatinine 0.6, blood sugar of 74. AST 132, ALT 223, alk phos is 479. Urine is growing E. coli. Status post paracentesis, had 2.3 L fluid removed. ASSESSMENT: 1. Significant weight loss. 2. History of gastric bypass. 3. Acute on chronic anemia. 4. Bilateral pleural effusion versus infiltrate. I doubt pneumonia since patient is asymptomatic and afebrile. 5. Ascites, probably secondary to hypoalbuminemia versus cirrhosis; however, patient's coags are normal, although liver functions tests are abnormal. PLAN: Patient is currently on Azactam. She is getting IV diuretic. Potassium is being supplemented. She is on analgesic as needed. Patient is on IV vancomycin also. I will order for TCU evaluation. If accepted, can be transferred to TCU. Rad Onofre MD
[2017-09-17] MEDS: oxyCODONE 20 mg ER Tab (oxyCONTIN) PO SCH ×3 (03:39→21:09)
[2017-09-17] MEDS: Pantoprazole 40 mg EC Tab PO SCH ×2 (05:41→14:23)
[2017-09-17] MEDS: Aztreonam 1 Gm in NS 100mL 100 ML IVPB SCH ×3 (05:41→21:09)
[2017-09-17] MEDS: Potassium Chloride 10 mEq ER Tab PO SCH (08:34)
--- NOTE | 2017-09-17 09:16 | PN ---
DATE: 09/17/2017 PULMONARY NOTE SUBJECTIVE: The patient appears comfortable this morning. She is not short of breath at rest. She remains very weak appearing. PHYSICAL EXAMINATION VITAL SIGNS: (Last noted in the computer): Temperature is 97.4, pulse 80, respirations 16, blood pressure 95/65. Oxygen saturation on room air 95%-98%. HEENT: Normocephalic, atraumatic. No JVD. CARDIOVASCULAR: Positive S1, S2. No S3 gallop. LUNGS: Decreased breath sounds at the bases. No rhonchi. No wheezing. EXTREMITIES: Positive for edema. No clubbing or cyanosis. Calves are nontender to palpation. GI: Abdomen is soft, it is mildly distended. It is nontender. Bowel sounds are positive. SKIN: No acute rash. NEUROLOGIC: Limited at the present time. PERTINENT LABORATORY DATA: Procalcitonin was done yesterday and reviewed. It is negative - 0.10. CBC: White count 5.1, hemoglobin 12.0, hematocrit 35.8, platelets of 116,000. IMPRESSION: 1. Mild atelectasis at the bases. Pneumonia less likely. 2. Small bilateral pleural effusions. 3. Significant ascites. 4. Anemia. 5. Increased liver function enzymes. 6. Multiple sclerosis. PLAN: The patient appears comfortable this morning. She is not short of breath at rest. In fact, the patient offers no pulmonary symptoms at this point in time. I did review the laboratory data as above. The procalcitonin is negative. While pneumonia is still possible, it is less likely at this point in time. On physical exam, there is no bronchospasm noted. In addition, the oxygen saturation on room air is 95%-98%. I have re-instructed the patient to use her incentive spirometer frequently. I have also instructed her to be out of bed as much as possible. I did go over these instructions with the nurse as well. Inputs by Infectious Disease and GI are noted. The patient remains on antibiotic therapy. There are no temperatures noted. There is no leukocytosis. We are also awaiting final results on the paracentesis. Clinical status of the patient is certainly improved - compared to the initial presentation. However, again, her overall status/prognosis remains very guarded. I will discuss the above with the attending physician. Donavan Acevedo MD [facility] # [id number] [facility]
--- NOTE | 2017-09-17 09:48 | CP.PCM.PN ---
<Myriam Borges - Last Filed: 09/17/17 09:44> Subjective - Date & Time of Evaluation Date of Evaluation: 09/17/17 Time of Evaluation: 09:44 - Subjective Subjective: Podiatry Progress Note: Dr. Puckett/Dr. Martínez 62 y/o female seen at bedside this morning regarding bilateral leg cellulitis with right leg weeping superficial ulcerations. Patient appears to be resting comfortably in his bed and denies of any acute overnight events. Reports she has little pain on the right plantar heel but denies of any other pedal complains at this time. Reports she feels better today. Denies of any F/N/V/C/ SOB/CP. Objective - Vital Signs/Intake and Output Vital Signs (last 24 hours): Temp Pulse Resp BP Pulse Ox 98 F 77 20 99/71 L 94 L 09/17/17 09:30 09/17/17 09:30 09/17/17 09:30 09/17/17 09:30 09/17/17 09:30 Intake and Output: 09/17/17 09/17/17 06:59 18:59 Intake Total 240 Output Total 640 Balance -400 - Medications Medications: Current Medications Acetaminophen (Tylenol 325mg Tab) 650 mg PO Q4H PRN PRN Reason: Pain, Mild (1-3) Last Admin: 09/11/17 05:18 Dose: 650 mg Buspirone HCl (Buspar) 5 mg PO BID JENNY PRN Reason: Protocol Last Admin: 09/16/17 17:49 Dose: 5 mg Citalopram Hydrobromide (Celexa) 20 mg PO DAILY JENNY Last Admin: 09/16/17 10:00 Dose: 20 mg Furosemide (Lasix) 40 mg IVP DAILY JENNY Last Admin: 09/16/17 10:00 Dose: 40 mg Gabapentin (Neurontin) 300 mg PO TID JENNY PRN Reason: Protocol Last Admin: 09/16/17 17:49 Dose: 300 mg Vancomycin HCl (Vancomycin 1gm) 1 gm in 250 mls @ 167 mls/hr IVPB Q12H JENNY PRN Reason: Protocol Last Admin: 09/16/17 23:04 Dose: 167 mls/hr Aztreonam (Azactam 1 Gm) 100 mls @ 100 mls/hr IVPB Q8 JENNY PRN Reason: Protocol Stop: 09/20/17 22:01 Last Admin: 09/17/17 05:41 Dose: 100 mls/hr Mupirocin (Bactroban Ointment) 0 gm TOP BID [facility] Last Admin: 09/16/17 17:25 Dose: Not Given Ondansetron HCl (Zofran Inj) 4 mg IVP Q6H PRN PRN Reason: Nausea/Vomiting Last Admin: 09/16/17 10:01 Dose: 4 mg Oxycodone HCl (Oxycontin Extended Release Tab) 40 mg PO Q12 [facility] Last Admin: 09/17/17 03:39 Dose: Not Given Oxycodone/Acetaminophen (Percocet 10/325 Mg Tab) 1 tab PO Q6H PRN PRN Reason: Pain, moderate (4-7) Last Admin: 09/16/17 21:16 Dose: 1 tab Pantoprazole Sodium (Protonix Ec Tab) 40 mg PO 0600,1600 [facility] Last Admin: 09/17/17 05:41 Dose: 40 mg Potassium Chloride (Klor-Con 10) 10 meq PO BRK [facility] Last Admin: 09/17/17 08:34 Dose: 10 meq - Labs Labs: 09/16/17 06:10 09/16/17 06:10 PT 12.2 SECONDS (9.4-12.5) 09/11/17 02:25 INR 1.07 (0.93-1.08) 09/11/17 02:25 APTT 26.5 Seconds (25.1-36.5) 09/11/17 02:25 - Constitutional Appears: Well, Non-toxic, No Acute Distress - Extremities Exam Additional comments: Vascular: palpable DP pulses bilateral and faintly palpable PT pulses CFT 2 sec x 10. Temperatue gradient reversed Neurologic: sensation to the feet is intact to sharp/dull discrimination and light touch Derm: small fissure noted on the plantar posterior right heel, redness of both LE with mild edema, significantly decreased since admission. - today, no drainage noted on bandages of right leg. No open wounds. Ortho: no tenderness to palpation of bilateral legs. mild tenderness to palpation of R plantar heel - Neurological Exam Neurological Exam: Alert, Awake, Oriented x3 - Psychiatric Exam Psychiatric exam: Normal Affect, Normal Mood Assessment and Plan - Assessment and Plan (Free Text) Assessment: 62 year old female with cellulitis bilateral lower extremities Plan: Patient seen and examined with attending Dr. Martínez Local care daily with cleansing of legs with wash cloths Apply bactroban cream to R leg No wound dressings needed at this time as there is no longer drainage Right heel dressed with optifoam Bactroban ordered Heel pads to offload and prevent heel decubitus ulcers Will continue to follow patient while in house <Jose Guadalupe Martínez - Last Filed: 09/19/17 10:20> Objective - Vital Signs/Intake and Output Vital Signs (last 24 hours): Temp Pulse Resp BP Pulse Ox 98.1 F 92 H 20 97/62 L 95 09/18/17 06:00 09/18/17 06:00 09/18/17 06:00 09/18/17 09:16 09/18/17 06:00 - Labs Labs: 09/16/17 06:10 09/16/17 06:10 PT 12.2 SECONDS (9.4-12.5) 09/11/17 02:25 INR 1.07 (0.93-1.08) 09/11/17 02:25 APTT 26.5 Seconds (25.1-36.5) 09/11/17 02:25 Attending/Attestation - Attestation I have personally seen and examined this patient.: Yes I have fully participated in the care of the patient.: Yes I have reviewed all pertinent clinical information, including history, physical exam and plan: Yes
[2017-09-17] MEDS: Vancomycin 1gm in NS 250ml 1 GM/250 ML BAG IVPB SCH ×2 (11:16→22:46)
--- NOTE | 2017-09-17 19:05 | PN ---
DATE: 09/17/2017 SUBJECTIVE: The patient is in bed, in no acute distress, nontoxic. PHYSICAL EXAMINATION: VITAL SIGNS: Temperature is 97, blood pressure is 100/70, respiratory rate 20, heart rate of 80. HEENT: Unremarkable. NECK: Supple. LUNGS: Decreased breath sounds. HEART: Normal S1 and S2. ABDOMEN: Soft, nontender. LABORATORY DATA: Reveals a white count of 5.1, hemoglobin of 12, platelets of 116. Chemistry reveals a BUN of 19, creatinine of 0.6, procalcitonin 0.10. Urinalysis is noted and serology is negative. Microbiology reveals an E. coli in the urine. Review of orders reveals the patient to be on aztreonam and vancomycin. Dr. Acevedo's note is reviewed from this morning. He states atelectasis is at the bases, pneumonia less likely. Dr. Borges's note is reviewed. The lower extremity infection is much improved. ASSESSMENT AND PLAN: This is a 62-year-old female who was seen earlier this morning, in room 561, bed 2. Bilateral lower extremity cellulitis which is greatly improving. Escherichia coli urinary tract infection has subsided in a patient with hypertension, chronic anemia, multiple sclerosis, sarcoidosis, and history of pancreatitis. Today is day #5 of vancomycin and aztreonam, should complete 7-10 days, maybe able to switch to p.o. antibiotics in the next 24 hours. LFT has greatly improved. James Latif MD
--- NOTE | 2017-09-18 00:28 | PN ---
DATE: SUBJECTIVE: Patient is a 62-year-old seen and examined, seems to be doing a little better, complained of bilateral leg pain, complained of back pain and generalized weakness. PHYSICAL EXAMINATION: VITAL SIGNS: She is afebrile, pulse 98, respirations 18, blood pressure 88/64. LUNGS: Bilateral diffuse decreased breath sounds, more so at bases. HEART: S1 and S2 audible. ABDOMEN: Soft. NEUROLOGIC: She is awake and alert. Able to communicate. EXTREMITIES: Bilateral leg, +2 edema. Both feet are in heel cushions. No more andrea erythema. LABORATORY EXAMINATION: There is no new lab available today. ASSESSMENT: 1. Significant weight loss. 2. Anemia, probably nutritional, status post gastric bypass. Patient has been an iron infusion and blood transfusion dependent. 3. Hypoalbuminemia. 4. Cirrhosis of the liver. 5. Status post paracentesis. 6. History of multiple sclerosis. 7. History of sarcoidosis. 8. History of emphysematous bladder, awaiting Dr. Bhatti's comment on that. 9. Hypotension. PLAN: Currently, patient is on vanco and Azactam that should be given for a total of 7 days. Unclear to me for her abnormal LFTs, although it is improving. Rad Onofre MD
--- NOTE | 2017-09-18 02:23 | PN ---
DATE: 09/17/2017 SUBJECTIVE: This patient was seen and evaluated earlier today, tolerating the diet. PHYSICAL EXAMINATION: VITAL SIGNS: On examination, temperature is 97.6, pulse 98, blood pressure 88/64. HEENT: Atraumatic and anicteric. NECK: Supple. HEART: S1 and S2 heard. LUNGS: Bilateral air entry present. Reduced breath sounds in the base. EXTREMITIES: Dressing present in the legs. NEUROLOGIC: Alert, oriented. LABORATORY DATA: Hemoglobin 12, hematocrit 35.8, WBC is 5.1, platelets 116. Chemistry showing a downward trend. AST is 132, ALT is 223, alkaline phosphatase is 479, total bilirubin is normal at 0.2. Patient had ultrasound scan of the abdomen done, suggestive of only ascites. Portal vein is patent, hepatic vein is patent. Abdominal ultrasound showed absent gallbladder, CBD normal, and ascites present. IMPRESSION: 1. Anemia. 2. Weight loss. 3. Status post esophagogastroduodenoscopy, which showed sp bariatric surgery, appears to be like a gastric sleeve plus antral gastrectomy combination BI resection. No obvious ulceration or esophageal varices noticed. 4. Ascites. Ascitic fluid, albumin cytology still pending, status post large volume paracentesis. 5. Abnormal liver function test, etiology is clear. Ultrasound showed normal common bile duct. Patient may need biopsy of the liver of the tendency of the liver function test remains to be in a higher increasing trend. 6. We will consider magnetic resonance cholangiopancreatography to further evaluate. 7. Sepsis, urinary tract infection, emphysematous urinary bladder wall. Continue the antibiotics as per Infectious Disease. 8. Patient has a lung infiltrate. As per the Pulmonary, more suggestive of atelectasis rather than pneumonia. 9. Other comorbidities include leg ulceration, multiple sclerosis, malnutrition. RECOMMENDATIONS: 1. Followup of the LFTs. 2. Continue the PPI. 3. Follow up of the ascitic fluid cytology and albumin levels. 4. We will order for the pelvic ultrasound scan and we will consider the MRCP to further evaluate the liver. Thank you very much for allowing us to participate in the care of the patient. Ami Alvarado MD [facility] # [id number] [facility]
[2017-09-18] MEDS: Aztreonam 1 Gm in NS 100mL 100 ML IVPB SCH (05:20)
[2017-09-18] MEDS: Pantoprazole 40 mg EC Tab PO SCH (05:20)
--- NOTE | 2017-09-18 06:49 | PCM.URO ---
Urology Progress Note - Objective Lab Studies: Reviewed (dx:uti plans : antibiotics and follow along) Intake & Output: Intake & Output 09/17/17 09/17/17 09/18/17 06:59 18:59 06:59 Intake Total 625 996 7399 Output Total 593 955 8325 Balance -400 260 140 Intake: Oral 456 504 0096 Output: Urine 803 418 1640 Urethral (Smith) [phone] Other: # Bowel Movements 0 Vital Signs: Vital Signs - 24 hr 09/17/17 09/17/17 09/17/17 09:30 10:01 14:00 Temperature 98 F 97.6 F Pulse Rate 77 98 H Respiratory 20 18 Rate Blood Pressure 99/71 L 99/71 L 88/64 L O2 Sat by Pulse 94 L 98 Oximetry 09/17/17 22:33 Temperature 97.3 F L Pulse Rate 90 Respiratory 18 Rate Blood Pressure 90/64 L O2 Sat by Pulse 96 Oximetry
[2017-09-18 07:45] VITALS: PULSE 92; RESP 20; TEMP 98.1; O2SAT 95
[2017-09-18] MEDS: Potassium Chloride 10 mEq ER Tab PO SCH (07:59)
[2017-09-18] MEDS: oxyCODONE 20 mg ER Tab (oxyCONTIN) PO SCH (09:16)
[2017-09-18 09:19] VITALS: BP 97/62
--- NOTE | 2017-09-18 09:34 | PN ---
DATE: 09/18/2017 PULMONARY NOTE SUBJECTIVE: The patient appears very comfortable at rest. She is not short of breath. PHYSICAL EXAMINATION VITAL SIGNS: (Last noted in the computer): Temperature is 97.3, pulse 90, respirations 18, blood pressure 90/64. Oxygen saturation on room air is 96%-98%. HEENT: Normocephalic, atraumatic. No JVD. CARDIOVASCULAR: Positive S1, S2. No S3 gallop. LUNGS: Slightly better breath sounds at the bases. No rhonchi. No wheezing. EXTREMITIES: Less edema. No cyanosis, no clubbing. Calves are nontender to palpation. GI: Abdomen is soft, it is mildly distended. It is nontender. Bowel sounds are positive. SKIN: No acute rash. NEUROLOGIC: Limited at the present time. IMPRESSION: 1. Mild atelectasis at the bases. Pneumonia less likely. 2. Small bilateral pleural effusions. 3. Significant ascites. 4. Anemia. 5. Increased liver function enzymes. 6. Multiple sclerosis. PLAN: The patient appears very comfortable this morning. She is not short of breath at rest. Again, she offers no pulmonary symptoms at this point in time. She does state to feeling much better overall. On physical exam, there are increased breath sounds noted at the bases. The patient has been working hard on her incentive spirometer. In addition, there is no significant alveolar-arterial gradient. Oxygen saturation on room air is 96%-98%. The patient is reminded to continue her incentive spirometer, and be out of bed as much as possible. Inputs by Infectious Disease, Genitourinary, Gastroenterology are noted. The patient remains on antibiotic therapy. There are no temperatures noted. There is no leukocytosis. Clinical status of the patient is certainly improved - compared to the initial presentation. However, again, the future status/prognosis for this patient does remain very guarded. I will discuss the above with the attending physician. Donavan Acevedo MD [facility]
--- NOTE | 2017-09-18 10:55 | PN ---
DATE: 09/18/2017 SUBJECTIVE: The patient is in bed, in no acute distress, and was seen this morning in room 561. No fevers and no chills. No nausea and no vomiting. PHYSICAL EXAMINATION: VITAL SIGNS: Temperature is 98, blood pressure is 92/60, respiratory rate of 20, heart rate of 92. HEENT: Unremarkable. NECK: Supple. LUNGS: Have decreased breath sounds. HEART: Normal S1 and S2. ABDOMEN: Soft and nontender. LABORATORY DATA: Reveals a white count of 5.1, hemoglobin of 12, platelets of 116. Chemistries reveal a BUN of 19, creatinine of 0.6 and procalcitonin of 0.10 from yesterday. Urinalysis is noted and peritoneal ascitic fluid with wbc's of 69. Microbiology reveals E. coli in the urine. The blood cultures are negative. Peritoneal cultures are negative. Dr. Bhatti's progress note is reviewed and Dr. Alvarado's note is reviewed. ASSESSMENT AND PLAN: This is a 62-year-old female, who was seen earlier this morning in room 561, bed 2, with bilateral lower extremity cellulitis, which is more or less resolved. Her right leg is completely normal at this point, Escherichia coli urinary tract infection, hypertension, chronic anemia, multiple sclerosis, sarcoidosis, day #6 of vancomycin and aztreonam, and review of the liver function tests are improved. No further antibiotics. We will discontinue the antibiotics. James Latif MD
--- NOTE | 2017-09-18 12:48 | CP.PCM.PN ---
Subjective - Date & Time of Evaluation Date of Evaluation: 09/18/17 Time of Evaluation: 12:45 - Subjective Subjective: Podiatry Progress Note: Dr. Puckett/Dr. Martínez 62 y/o female seen at bedside this morning regarding bilateral leg cellulitis with right leg weeping superficial ulcerations. Patient appears to be resting comfortably in his bed and denies of any acute overnight events. Reports she has little pain on the right plantar heel but denies of any other pedal complains at this time. Reports she feels better today. Denies of any F/N/V/C/ SOB/CP. Objective - Vital Signs/Intake and Output Vital Signs (last 24 hours): Temp Pulse Resp BP Pulse Ox 98.1 F 92 H 20 97/62 L 95 09/18/17 06:00 09/18/17 06:00 09/18/17 06:00 09/18/17 09:16 09/18/17 06:00 Intake and Output: 09/18/17 09/18/17 06:59 18:59 Intake Total 1140 960 Output Total 1000 600 Balance 140 360 - Medications Medications: Current Medications Acetaminophen (Tylenol 325mg Tab) 650 mg PO Q4H PRN PRN Reason: Pain, Mild (1-3) Last Admin: 09/11/17 05:18 Dose: 650 mg Buspirone HCl (Buspar) 5 mg PO BID [facility] PRN Reason: Protocol Last Admin: 09/18/17 09:15 Dose: 5 mg Citalopram Hydrobromide (Celexa) 20 mg PO DAILY [facility] Last Admin: 09/18/17 09:16 Dose: 20 mg Furosemide (Lasix) 40 mg IVP DAILY [facility] Last Admin: 09/18/17 09:16 Dose: 40 mg Gabapentin (Neurontin) 300 mg PO TID [facility]ENNY PRN Reason: Protocol Last Admin: 09/18/17 09:16 Dose: 300 mg Mupirocin (Bactroban Ointment) 10 gm TOP DAILY [facility] Last Admin: 09/18/17 09:06 Dose: 1 applic Ondansetron HCl (Zofran Inj) 4 mg IVP Q6H PRN PRN Reason: Nausea/Vomiting Last Admin: 09/18/17 09:17 Dose: 4 mg Oxycodone HCl (Oxycontin Extended Release Tab) 40 mg PO Q12 [facility] Last Admin: 09/18/17 09:16 Dose: 40 mg Oxycodone/Acetaminophen (Percocet 10/325 Mg Tab) 1 tab PO Q6H PRN PRN Reason: Pain, moderate (4-7) Last Admin: 09/16/17 21:16 Dose: 1 tab Pantoprazole Sodium (Protonix Ec Tab) 40 mg PO 0600,1600 [facility] Last Admin: 09/18/17 05:20 Dose: 40 mg Potassium Chloride (Klor-Con 10) 10 meq PO BRK [facility] Last Admin: 09/18/17 07:59 Dose: 10 meq - Labs Labs: 09/16/17 06:10 09/16/17 06:10 PT 12.2 SECONDS (9.4-12.5) 09/11/17 02:25 INR 1.07 (0.93-1.08) 09/11/17 02:25 APTT 26.5 Seconds (25.1-36.5) 09/11/17 02:25 - Constitutional Appears: Well, Non-toxic, No Acute Distress - Extremities Exam Additional comments: Vascular: palpable DP pulses bilateral and faintly palpable PT pulses CFT 2 sec x 10. Temperatue gradient reversed Neurologic: sensation to the feet is intact to sharp/dull discrimination and light touch Derm: small fissure noted on the plantar posterior right heel, erythema and edema appears to be resolving since the day of the admission, no active drainage , no purulence, No open wounds. Ortho: no tenderness to palpation of bilateral legs. mild tenderness to palpation of R plantar heel - Neurological Exam Neurological Exam: Alert, Awake, Oriented x3 - Psychiatric Exam Psychiatric exam: Normal Affect, Normal Mood Assessment and Plan - Assessment and Plan (Free Text) Assessment: 62 year old female with cellulitis bilateral lower extremities Plan: Patient seen and examined Discussed with attending Dr. Puckett Local care daily with cleansing of legs with wash cloths Apply bactroban cream to R leg No wound dressings needed at this time as there is no longer drainage Right heel dressed with bactroban optifoam Heel pads to offload and prevent heel decubitus ulcers Will continue to follow patient while in house
--- NOTE | 2017-09-18 23:29 | PN ---
DATE: 09/18/2017 SUBJECTIVE: This patient was seen and evaluated earlier today. PHYSICAL EXAMINATION: VITAL SIGNS: Temperature is 98.1, pulse 92, blood pressure 92/61, respirations 20. HEENT: Patient is cachectic looking with temporal wasting. NECK: Supple. HEART: S1 and S2 heard. LUNGS: Bilateral air entry present. Slightly reduced at base. ABDOMEN: Softly distended. EXTREMITIES: Both legs, lower extremity dressing present. NEUROLOGIC: Alert, oriented. LABORATORY DATA: Hemoglobin 12, hematocrit 35.8, WBC is 5.1, platelets 116. Chemistry showed BUN 19, creatinine 0.6. Transaminase showing downward trend. AST is 132, ALT is 223, alkaline phosphatase still remains elevated at 479. IMPRESSION AND PLAN: 1. Anemia, status post transfusion. Hemoglobin remains stable. 2. Weight loss. 3. 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 4. Ascites, new onset. Ascitic fluid albumin is still pending. Cytology is also still pending. 5. Abnormal liver function tests. The concern is still persistent elevated alkaline phosphatase. I did discuss with the patient. Patient is scheduled to be discharged to skilled nursing. If the LFT continues to be on the higher side, would benefit from MRCP with the MRI of the liver. Patient is agreeable with that. 6. Would also benefit from pelvic ultrasound. 7. 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 Clinically much improving. Continue the antibiotics. Thank you very much for allowing us to participate in the care of the patient. Ami Alvarado MD
--- NOTE | 2017-09-19 00:06 | DS ---
HOSPITAL COURSE: The patient is a 62-year-old, seen and examined, lying in bed, seems to be comfortable. No nausea, vomiting, or diarrhea except generalized weakness. She is ready to be transferred to subacute rehab today. PHYSICAL EXAMINATION: VITAL SIGNS: She is afebrile, pulse 92, respirations 20, blood pressure 97/62. LUNGS: Bilateral good air flow. No rhonchi or crackles. HEART: S1 and S2 audible. ABDOMEN: Soft, nontender. No rebound, no guarding. NEUROLOGIC: The patient is awake, alert, oriented, communicative. EXTREMITIES: Bilateral leg, +1 edema and slight erythema of feet. Leg ulcer seems to be healing. ASSESSMENT: 1. Symptomatic anemia, probably nutritional, status post gastric bypass. 2. Status post multiple blood transfusions for symptomatic anemia. 3. Hypoalbuminemia. 4. History of multiple sclerosis. 5. History of sarcoidosis. 6. Abnormal liver function tests, etiology is still unclear; however, it is improving. PLAN: The patient is being transferred to [place] where she will be diuresed. We will be monitoring her electrolyte and CBC. She will have colonoscopy as outpatient. We will reach out to Dr. Guo for iron infusion p.r.n. Rad Onofre MD
== END 2017-09-18 14:18 | DRG 812 ==
LOC: ED 02:00 → ERH 03:18 → 5RNO 08:45 → OBSVTOIN 09-12 08:25
PROVIDERS: ADMIT Internal Medicine Nephrology; ATTEND Internal Medicine
PROC: 30233N1 Transfusion of Nonautologous Red Blood Cells into Peripheral Vein, Percutaneous Approach (ICD-10-PCS; principal; 2017-09-11)
DX: D53.9 Nutritional anemia, unspecified (principal); L03.115 Cellulitis of right lower limb; N30.80 Other cystitis without hematuria; R18.8 Other ascites; G35 Multiple sclerosis; L03.116 Cellulitis of left lower limb; K74.60 Unspecified cirrhosis of liver; L97.919 Non-pressure chronic ulcer of unspecified part of right lower leg with unspecified severity; L97.929 Non-pressure chronic ulcer of unspecified part of left lower leg with unspecified severity; J98.11 Atelectasis; D86.9 Sarcoidosis, unspecified; I87.2 Venous insufficiency (chronic) (peripheral); B96.20 Unspecified Escherichia coli [E. coli] as the cause of diseases classified elsewhere; I10 Essential (primary) hypertension; K27.9 Peptic ulcer, site unspecified, unspecified as acute or chronic, without hemorrhage or perforation; M19.90 Unspecified osteoarthritis, unspecified site; Z98.84 Bariatric surgery status; Z87.442 Personal history of urinary calculi; Z90.49 Acquired absence of other specified parts of digestive tract; Z87.891 Personal history of nicotine dependence; Z88.0 Allergy status to penicillin

== ENCOUNTER 2017-10-04 09:54 | Inpatient (IN) | payer MEDICARE, OTHER ==
[2017-10-04] MEDS ORDERED: Sodium Chloride 0.9% 500 ML IV STA (10:50)
--- NOTE | 2017-10-04 10:52 | ED PDOC ---
Arrival/HPI - General Historian: Patient - History of Present Illness Time/Duration: Other ( hpi) Context: Other (correction) <Gilberto Jean - Last Filed: 10/04/17 13:41> <AmparoKymberlyJen - Last Filed: 10/08/17 09:49> - General Chief Complaint: Abnormal Labs Time Seen by Provider: 10/04/17 10:19 - History of Present Illness Narrative History of Present Illness (Text): 10/04/17 10:51 62 year old female, with past medical history of anemia, hypertension, multiple sclerosis, sarcoidosis, pancreatitis, and left ureteral stent, came by BLS to this Emergency department due to abnormal blood test. Patient stated she has " a lot chronic problems". She feels fatigue and dehydrated. She also stated PO Lasix does not help for her swelling legs or left arm swelling. (Gilberto Jean ) Past Medical History - Provider Review Nursing Documentation Reviewed: Yes - Infectious Disease Hx of Infectious Diseases: None - Cardiac Hx Cardiac Disorders: No - Pulmonary Hx Respiratory Disorders: Yes (SMOKED CIGARETTES) Other/Comment: SARCOIDOSIS - Neurological Hx Neurological Disorder: No - HEENT Hx HEENT Disorder: Yes Other/Comment: 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 - Renal Hx Renal Disorder: Yes (L KIDNEY CYST,H/O LITHOTRYPSIES) Hx Kidney Stones: Yes - Endocrine/Metabolic Hx Endocrine Disorders: Yes Hx Hyperthyroidism: Yes - Hematological/Oncological Hx Blood Disorders: Yes Hx Anemia: Yes Hx Blood Transfusions: Yes - Integumentary Hx Dermatological Disorder: Yes Hx Cellulitis: Yes - Musculoskeletal/Rheumatological Hx Musculoskeletal Disorders: Yes Other/Comment: MS - Gastrointestinal Hx Gastrointestinal Disorders: Yes - Genitourinary/Gynecological Hx Genitourinary Disorders: Yes (nephrolithiasis) - Psychiatric Hx Psychophysiologic Disorder: Yes Hx Depression: Yes Hx Substance Use: No - Surgical History Hx Mastectomy: No - Anesthesia Hx Anesthesia Reactions: No Hx Malignant Hyperthermia: No - Suicidal Assessment Feels Threatened In Home Enviroment: No <Gilberto Jean - Last Filed: 10/04/17 13:41> Family/Social History - Physician Review Nursing Documentation Reviewed: Yes Family/Social History: Other (noncontributory) Smoking Status: Former Smoker Hx Alcohol Use: No Hx Substance Use: No <Gilberto Jean - Last Filed: 10/04/17 13:41> Allergies/Home Meds <Gilberto Jean P - Last Filed: 10/04/17 13:41> <AmparoKymberlyTriciaOma - Last Filed: 10/08/17 09:49> Allergies/Adverse Reactions: Allergies black pepper Allergy (Verified 10/04/17 18:19) ITCHING codeine Allergy (Verified 10/04/17 18:19) NAUSEA Patient states that it was due to tylenol with codeine. Patient takes codeine and percocets at home. Penicillins Allergy (Verified 10/04/17 18:19) SWELLING Sulfa (Sulfonamide Antibiotics) Allergy (Verified 10/04/17 18:19) RASH Home Medications: Home Meds Medication Instructions Recorded Confirmed Citalopram Hydrobromide [Celexa] 20 mg PO DAILY 07/22/17 10/04/17 busPIRone [Buspar] 5 mg PO BID 07/22/17 10/04/17 Famotidine [Pepcid] 20 mg PO DAILY 10/04/17 10/04/17 Ondansetron [Zofran Odt] 4 mg PO Q6 10/04/17 10/04/17 Pantoprazole [Protonix EC Tab] 40 mg PO 0600 10/04/17 10/04/17 Review of Systems - Review of Systems Constitutional: Normal. absent: Fatigue, Weight Change, Fevers, Night Sweats Eyes: Normal ENT: Normal Respiratory: Normal. absent: SOB Cardiovascular: Normal. absent: Chest Pain Gastrointestinal: Normal. absent: Abdominal Pain Genitourinary Female: Normal. absent: Dysuria Musculoskeletal: Normal. absent: Back Pain, Neck Pain Skin: Normal. absent: Rash Neurological: Normal. absent: Headache Endocrine: Normal Hemo/Lymphatic: Normal Psychiatric: Normal <Delma Jeanim P - Last Filed: 10/04/17 13:41> Physical Exam Temperature: Afebrile Blood Pressure: Normal Pulse: Regular Respiratory Rate: Normal Appearance: Positive for: Non-Toxic, Comfortable, Unkept Pain Distress: None Mental Status: Positive for: Alert and Oriented X 3 - Systems Exam Head: Present: Atraumatic, Normocephalic Pupils: Present: PERRL Extroacular Muscles: Present: EOMI Conjunctiva: Present: Normal Ears: Present: Normal Mouth: Present: Moist Mucous Membranes, Normal Lips, Normal Tounge. No: Drooling Pharnyx: Present: Normal. No: ERYTHEMA, EXUDATE, TONSILS ENLARGED Neck: Present: Normal Range of Motion, Trachea Midline. No: Meningeal Signs Respiratory/Chest: Present: Clear to Auscultation, Good Air Exchange. No: Respiratory Distress, Accessory Muscle Use, Wheezes, Retracting, Rhonchi Cardiovascular: Present: Regular Rate and Rhythm, Normal S1, S2. No: Murmurs Abdomen: No: Tenderness, Distention, Peritoneal Signs, Rebound, Guarding Back: Present: Normal Inspection. No: CVA Tenderness Upper Extremity: Present: Normal Inspection, Normal ROM. No: Cyanosis, Edema Lower Extremity: Present: Normal Inspection, Normal ROM. No: Edema Neurological: Present: GCS=15, CN II-XII Intact, Speech Normal, Motor Func Grossly Intact, Normal Sensory Function, Normal Cerebellar Funct, Gait Normal, Memory Normal Skin: Present: Warm, Dry, Normal Color. No: Rashes Psychiatric: Present: Alert, Oriented x 3, Normal Insight, Normal Concentration <Jean,Delmaim P - Last Filed: 10/04/17 13:41> Vital Signs Temp Pulse Resp BP Pulse Ox 10/04/17 13:54 65 16 126/61 96 10/04/17 10:41 97.6 F 77 17 91/51 L 97 Medical Decision Making Re-evaluation Time: 12:43 Reassessment Condition: Re-examined, Improving,but remains with symptoms - Lab Interpretations I have reviewed the lab results: Yes Interpretation: Abnormal lab values - EKG Interpretation Interpreted by ED Physician: Yes Type: 12 lead EKG Comparison: Similar to previous EKG (QRS changes on V2) <Delma Jeanim P - Last Filed: 10/04/17 13:41> <Srinivasan Christensen - Last Filed: 10/08/17 09:49> ED Course and Treatment: 10/04/17 12:41 I spoke with CECI Ware regarding patient symptoms. I reviewed labs, CXR result. She recommended to consult Dr. Alvarado GI doctor. She agrees with plan for admission. (Gilberto Jean P) - Lab Interpretations Lab Results: 10/04/17 11:15 04/10/18 11:15 Lab Results 10/04/17 11:15: Sodium 132, Potassium 2.6 L* D, Chloride 90 L, Carbon Dioxide 39 H, Anion Gap 6 L, BUN 33 H, Creatinine 1.1, Est GFR ( Amer) > 60, Est GFR (Non-Af Amer) 50, Random Glucose 88, Calcium 7.0 L, Total Bilirubin 0.3, AST 608 H D, ALT 295 H, Alkaline Phosphatase 596 H D, Lactate Dehydrogenase 649 , Total Creatine Kinase 25 L, Troponin I < 0.01, NT-Pro-B Natriuret Pep 1380 H, Total Protein 4.0 L, Albumin 1.6 L, Globulin 2.4, Albumin/Globulin Ratio 0.6 L 10/04/17 11:15: WBC 6.9 D, RBC 3.00 L, Hgb 9.7 L D, Hct 27.6 L, MCV 92.0, MCH 32.3, MCHC 35.1, RDW 16.3 H, Plt Count 207, MPV 9.1, Gran % 73.4 H, Lymph % ( Auto) 21.9 L, [place] % (Auto) 4.3, Eos % (Auto) 0.4 L, Baso % (Auto) 0.0, Gran # 5.06, Lymph # (Auto) 1.5, [place] # (Auto) 0.3, Eos # (Auto) 0.0, Baso # (Auto) 0.00 - RAD Interpretation Narrative RAD Interpretations (Text): 10/04/17 12:16 Patient Name / ID : MADAN LACY / [id number] Exam Date : 10/04/2017 11:04:51 ( Approved ) Study Comment : Sex / Age : F / 62Y Creator : Shayna Lloyd MD Dictator : Shayna Lloyd MD [employer] Structure Assembler : Blue Print Control Clerk : Shayna Lloyd MD Approver2 : Report Date : 10/04/2017 11:34:42 My Comment : HISTORY: Cough COMPARISON: 09/11/2017. FINDINGS: LUNGS: The lungs are clear. PLEURA: No significant pleural effusion identified, no pneumothorax apparent. CARDIOVASCULAR: Normal. OSSEOUS STRUCTURES: No significant abnormalities. VISUALIZED UPPER ABDOMEN: Normal. OTHER FINDINGS: There are multiple surgical clips in the epigastrium. IMPRESSION: No active pulmonary disease. (Gilberto Jean) Radiology Orders: 10/04/17 10:50 CHEST PORTABLE [RAD] Stat - Medication Orders Current Medication Orders: Albumin Human (Albumin Human 25% (12.5 Gm/50 Ml)) 12.5 gm IV DAILY JENNY Buspirone HCl (Buspar) 5 mg PO BID [facility] PRN Reason: Protocol Last Admin: 10/08/17 09:41 Dose: 5 mg Citalopram Hydrobromide (Celexa) 20 mg PO DAILY [facility] Last Admin: 10/08/17 09:41 Dose: 20 mg Cyanocobalamin (Vitamin B12 1000 Mcg/Ml Inj) 1,000 mcg IM DAILY [facility] Stop: 10/08/17 15:25 Last Admin: 10/08/17 09:44 Dose: 1,000 mcg IM Administration Charges Document 10/08/17 09:44 [facility] (Rec: 10/08/17 09:44 [id number]) Charges for Administration # of IM Administrations 1 Enoxaparin Sodium (Lovenox) 30 mg SC Q12H [facility] PRN Reason: Protocol Last Admin: 10/08/17 09:41 Dose: 30 mg Subcutaneous Administrations Document 10/08/17 09:41 BIR (Rec: 10/08/17 09:42 [id number]) Charges for Administration # of Subcutaneous Administrations 1 Gabapentin (Neurontin) 300 mg PO TID [facility] PRN Reason: Protocol Last Admin: 10/08/17 09:42 Dose: 300 mg Potassium Chloride/Dextrose (Potassium Chl 40 Meq In D5w) 1,000 mls @ 50 mls/ hr IV .Q20H JENNY Oxycodone HCl (Oxycontin Extended Release Tab) 20 mg PO Q12 [facility] Last Admin: 10/08/17 09:42 Dose: 20 mg MAR Pain Assessment Document 10/08/17 09:42 BIR (Rec: 10/08/17 09:42 [id number]) Pain Reassessment Is this a pain reassessment? No Sleep Is patient sleeping during reassessment? No Presence of Pain Presence of Pain Yes Oxycodone/Acetaminophen (Percocet 5/325 Mg Tab) 1 tab PO Q6H PRN PRN Reason: Pain, moderate (4-7) Stop: 10/10/17 09:59 Last Admin: 10/07/17 17:38 Dose: 1 tab MAR Pain Assessment Document 10/07/17 17:38 BIR (Rec: 10/07/17 17:38 BIR [id number]) Pain Reassessment Is this a pain reassessment? No Sleep Is patient sleeping during reassessment? No Presence of Pain Presence of Pain Yes Re-Assess: MAR Pain Assessment Document 10/07/17 18:38 RS (Rec: 10/07/17 20:10 RS [id number]) Pain Reassessment Is this a pain reassessment? Yes Sleep Is patient sleeping during reassessment? No Presence of Pain Presence of Pain No Pantoprazole Sodium (Protonix Ec Tab) 40 mg PO 0600 [facility] Last Admin: 10/08/17 09:44 Dose: 40 mg Discontinued Medications Albumin Human (Albumin Human 25% (12.5 Gm/50 Ml)) 12.5 gm IV Q8H [facility] Last Admin: 10/07/17 10:31 Dose: 12.5 gm eMAR Start Stop Document 10/07/17 10:31 BIR (Rec: 10/07/17 10:32 [id number]) Intravenous Solution Start Date 10/07/17 Start Time 10:32 End Date 10/07/17 End time 11:35 Total Infusion Time 63 Darbepoetin Jonathon (Aranesp) 100 mcg SC ONCE ONE Stop: 10/04/17 15:25 Last Admin: 10/04/17 17:49 Dose: 100 mcg Subcutaneous Administrations Document 10/04/17 17:49 SML (Rec: 10/04/17 17:50 SML [id number]) Injection Site MAR Injection Site Right Arm Charges for Administration # of Subcutaneous Administrations 1 Enoxaparin Sodium (Lovenox) 30 mg SC ONCE ONE PRN Reason: Protocol Stop: 10/04/17 19:24 Last Admin: 10/04/17 20:32 Dose: 30 mg Subcutaneous Administrations Document 10/04/17 20:32 RM (Rec: 10/04/17 20:32 RM [id number]) Injection Site MAR Injection Site Right Abdomen Charges for Administration # of Subcutaneous Administrations 1 Sodium Chloride (Sodium Chloride 0.9%) 500 mls @ 999 mls/hr IV .Q31M STA Stop: 10/04/17 11:20 Last Admin: 10/04/17 11:00 Dose: 999 mls/hr eMAR Start Stop Document 10/04/17 11:00 HI (Rec: 10/04/17 13:08 HI [id number]) Intravenous Solution Start Date 10/04/17 Start Time 11:00 Potassium Chloride (Potassium Chloride 10 Meq/100 Ml) 10 meq in 100 mls @ 50 mls/hr IVPB Q2H JENNY Stop: 10/04/17 16:14 Last Admin: 10/04/17 17:59 Dose: 50 mls/hr eMAR Start Stop Document 10/04/17 17:59 SML (Rec: 10/04/17 17:59 SML [id number]) Intravenous Solution Start Date 10/04/17 Start Time 17:59 End Date 10/04/17 End time 19:59 Total Infusion Time 120 Sodium Chloride (Sodium Chloride 0.9%) 1,000 mls @ 50 mls/hr IV .Q20H JENNY Last Admin: 10/04/17 13:46 Dose: 50 mls/hr eMAR Start Stop Document 10/04/17 13:46 HI (Rec: 10/04/17 13:46 HI [id number]) Intravenous Solution Start Date 10/04/17 Start Time 13:30 Sodium Chloride (Sodium Chloride 0.45%) 1,000 mls @ 60 mls/hr IV .[id number] JENNY Last Admin: 10/04/17 17:53 Dose: 60 mls/hr eMAR Start Stop Document 10/04/17 17:53 SML (Rec: 10/04/17 17:53 SML [id number]) Intravenous Solution Start Date 10/04/17 Start Time 17:53 Potassium Chloride (Potassium Chloride 10 Meq/100 Ml) 10 meq in 100 mls @ 50 mls/hr IVPB Q2H JENNY Stop: 10/04/17 19:29 Last Admin: 10/05/17 02:08 Dose: Iron Sucrose 100 mg/ Sodium (Chloride) 105 mls @ 210 mls/hr IV DAILY JENNY Stop: 10/09/17 15:31 Last Admin: 10/05/17 10:14 Dose: 210 mls/hr eMAR Start Stop Document 10/05/17 10:14 JW (Rec: 10/05/17 10:14 JW [id number]) Intravenous Solution Start Date 10/05/17 Start Time 10:14 End Date 10/05/17 End time 10:45 Total Infusion Time 31 Sodium Chloride (Sodium Chloride 0.9%) 1,000 mls @ 999 mls/hr IV .Q1H1M STA Stop: 10/04/17 16:57 Last Admin: 10/04/17 17:49 Dose: 999 mls/hr eMAR Start Stop Document 10/04/17 17:49 SML (Rec: 10/04/17 17:49 SML [id number]) Intravenous Solution Start Date 10/04/17 Start Time 03:30 End Date 10/04/17 End time 04:30 Total Infusion Time 60 Sodium Chloride (Sodium Chloride 0.9%) 1,000 mls @ 100 mls/hr IV .Q10H JENNY Last Admin: 10/06/17 04:35 Dose: 100 mls/hr eMAR Start Stop Document 10/06/17 04:35 ANE (Rec: 10/06/17 04:35 ANE [id number]) Intravenous Solution Start Date 10/06/17 Start Time 04:35 Potassium Chloride (Potassium Chloride 10 Meq/100 Ml) 10 meq in 100 mls @ 50 mls/hr IVPB Q2H JENNY Stop: 10/05/17 04:29 Last Admin: 10/05/17 05:29 Dose: 50 mls/hr eMAR Start Stop Document 10/05/17 05:29 RM (Rec: 10/05/17 05:29 RM [id number]) Intravenous Solution Start Date 10/05/17 Start Time 05:29 End Date 10/05/17 End time 07:29 Total Infusion Time 120 Potassium Chloride (Potassium Chloride 10 Meq/100 Ml) 10 meq in 100 mls @ 50 mls/hr IVPB Q2H JENNY Stop: 10/05/17 16:59 Last Admin: 10/05/17 17:13 Dose: 50 mls/hr eMAR Start Stop Document 10/05/17 17:13 JW (Rec: 10/05/17 17:13 JW [id number]) Intravenous Solution Start Date 10/05/17 Start Time 17:13 Sodium Chloride (Sodium Chloride 0.9%) 500 mls @ 999 mls/hr IV .Q31M STA Stop: 10/05/17 10:48 Last Admin: 10/05/17 10:26 Dose: 999 mls/hr eMAR Start Stop Document 10/05/17 10:26 JW (Rec: 10/05/17 10:27 JW [id number]) Intravenous Solution Start Date 10/05/17 Start Time 10:00 End Date 10/05/17 End time 10:00 Total Infusion Time 0 Potassium Chloride (Potassium Chloride 20 Meq/100 Ml) 20 meq in 100 mls @ 50 mls/hr IVPB Q2H JENNY Stop: 10/06/17 10:59 Last Admin: 10/06/17 09:36 Dose: 50 mls/hr eMAR Start Stop Document 10/06/17 09:36 BIR (Rec: 10/06/17 09:36 BIR [id number]) Intravenous Solution Start Date 10/06/17 Start Time 10:45 End Date 10/06/17 End time 13:00 Total Infusion Time 135 Potassium Chloride/Dextrose (Potassium Chl 40 Meq In D5w) 1,000 mls @ 75 mls/ hr IV .[id number] [facility] Last Admin: 10/07/17 02:30 Dose: 75 mls/hr eMAR Start Stop Document 10/07/17 02:30 ANE (Rec: 10/07/17 02:30 ANE [id number]) Intravenous Solution Start Date 10/07/17 Start Time 02:30 Oxycodone HCl (Oxycontin Extended Release Tab) 20 mg PO ONCE ONE Stop: 10/06/17 04:24 Last Admin: 10/06/17 04:33 Dose: 20 mg MAR Pain Assessment Document 10/06/17 04:33 ANE (Rec: 10/06/17 04:34 ANE [id number]) Pain Reassessment Is this a pain reassessment? No Presence of Pain Presence of Pain Yes Pain Scale Used Pain Scale Used Numeric Location Pain Location Body Site Back Leg Description Intensity of Pain at present 10 Pain Behavior Facial Grimacing Alleviating Factors/Management Medication Techniques Position Change Alleviating Factors Medication Re-Assess: VENKATA Pain Assessment Document 10/06/17 05:33 ANE (Rec: 10/06/17 06:57 ANE [id number]) Pain Reassessment Is this a pain reassessment? Yes Sleep Is patient sleeping during reassessment? 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 <Srinivasan Christensen - Last Filed: 10/08/17 09:49> Disposition/Present on Arrival - Present on Arrival Any Indicators Present on Arrival: No History of DVT/PE: No History of Uncontrolled Diabetes: No Urinary Catheter: No History of Decub. Ulcer: No History Surgical Site Infection Following: None - Disposition Have Diagnosis and Disposition been Completed?: Yes Disposition Time: 12:46 Patient Plan: Admission <Gilberto Jean - Last Filed: 10/04/17 13:41> <Srinivasan Christensen - Last Filed: 10/08/17 09:49> - Disposition Diagnosis: Hypokalemia, Elevated LFTs, Dehydration, Anemia, Extremity edema, Weakness, Elevated brain natriuretic peptide (BNP) level Disposition: HOSPITALIZED Patient Problems: Current Active Problems Problem Status Onset Anemia Acute Dehydration Acute Elevated LFTs Acute Elevated brain natriuretic peptide (BNP) level Acute Extremity edema Acute Hypokalemia Acute Weakness Acute Condition: STABLE
--- NOTE | 2017-10-04 11:36 | RAD ---
HISTORY: Cough COMPARISON: 09/11/2017. FINDINGS: LUNGS: The lungs are clear. PLEURA: No significant pleural effusion identified, no pneumothorax apparent. CARDIOVASCULAR: Normal. OSSEOUS STRUCTURES: No significant abnormalities. VISUALIZED UPPER ABDOMEN: Normal. OTHER FINDINGS: There are multiple surgical clips in the epigastrium. IMPRESSION: No active pulmonary disease.
[2017-10-04 11:46] LABS: EOS % 0.4 % (1.5-5.0); GRAN # 5.06 (1.4-6.5); GRAN % 73.4 % (50.0-68.0); HEMOGLOBIN 9.7 g/dL (12.0-16.0); LYMPH # 1.5 (1.2-3.4); LYMPH % 21.9 % (22.0-35.0); MEAN CORPUSCULAR HEMOGLOBIN 32.3 pg (25.0-35.0); MEAN CORPUSCULAR HGB CONC 35.1 g/dl (31.0-37.0); MEAN PLATELET VOLUME 9.1 fl (7.0-11.0); MONO # 0.3 (0.1-0.6); MONO % 4.3 % (1.0-6.0); RED CELL DISTRIBUTION WIDTH 16.3 % (11.5-14.5); WHITE BLOOD COUNT 6.9 10^3/ul (4.5-11.0)
[2017-10-04 12:06] LABS: B-TYPE NATRIURETIC PEPTIDE 1380 pg/mL (0-450); TROPONIN I < 0.01 ng/mL
[2017-10-04 12:07] LABS: ALB/GLOB RATIO 0.6 (1.1-1.8); ALBUMIN 1.6 g/dL (3.0-4.8); ALT/SGPT 295 U/L (7-56); AST/SGOT 608 U/L (14-36); BLOOD UREA NITROGEN 33 mg/dL (7-21); GFR AFRICAN-AMERICAN > 60; GFR NON-AFRICAN AMERICAN 50
[2017-10-04] MEDS ORDERED: Potassium Chloride 40 mEq/30 ml LIQ UD PO STA (12:12)
--- NOTE | 2017-10-04 12:28 | CARD ---
APPROVED REPORT EKG Measurement Heart [id number] <Conclusion> Sinus rhythm with occasional premature ventricular complexes Low voltage QRS Possible Inferior infarct, age undetermined Cannot rule out Anterior infarct, age undetermined Abnormal ECG
[2017-10-04] MEDS ORDERED: Sodium Chloride 0.9% 1,000 ML IV SCH (13:00)
[2017-10-04] MEDS ORDERED: Darbepoetin Alfa 100 mcg/ml Inj SC ONE (15:24)
[2017-10-04] MEDS ORDERED: Sodium Chloride 0.45% 1,000 ML IV SCH (15:30)
--- NOTE | 2017-10-04 15:46 | CON ---
DATE: 10/04/2017 REASON FOR CONSULT: Anemia and weight loss. HISTORY OF PRESENT ILLNESS: The patient is a 62-year-old female, known to me from multiple other admissions as well as the outpatient with multiple medical problems including chronic anemia secondary to an extensive gastric bypass procedure done severe years ago, hypertension, multiple sclerosis, sarcoidosis and pancreatitis as well as left ureteral stent, who was admitted to the hospital again with abnormal blood count. She is once again very fatigued and has not been eating. Continues to lose more weight. She also has known cirrhosis and has multiple episodes of ascites as well as lower extremity swelling and once again admitted with left upper arm swelling as well as bilateral lower extremity swelling. Her etiology of the cirrhosis is unclear. She also is being considered for an occult malignancy at this point, but no conclusive testing has been elucidated. PAST MEDICAL HISTORY: As above, known history of anemia, hypertension, history gastric bypass, multiple sclerosis, sarcoidosis, pancreatitis, history of ureteral stent. ALLERGIES: NO KNOWN DRUG ALLERGIES. SOCIAL HISTORY: Negative for any smoking. No alcohol use. No drug use. Lives with her son. She has known allergies to black pepper, codeine, penicillins and sulfa drugs. MEDICATIONS AT HOME: Include Celexa, BuSpar, Pepcid, Zofran and Protonix. FAMILY HISTORY: Noncontributory. REVIEW OF SYSTEMS: As per the HPI. PHYSICAL EXAMINATION: VITAL SIGNS: Vitals reveal temperature 97.6, pulse of 65, respiratory rate of 16 and blood pressure of 126/61. GENERAL: The patient is an elderly, cachectic-appearing, chronically-ill female, lying in bed, in no acute distress. HEAD AND NECK: Normocephalic, atraumatic. Eyes: Pupils equal, round, reactive to light and accommodation. Extraocular muscles are intact. There is pallor. No icterus is noted. Neck is supple with no adenopathy, no JVD, no thyromegaly. LUNGS: Decreased breath sounds bilaterally at the bases, likely secondary to poor effort. CARDIOVASCULAR: S1 and S2 are heard. She is tachycardia. ABDOMEN: Positive bowel sounds. Distention, but no rebound or guarding. EXTREMITIES: There is bilateral lower extremity edema, at least 2+. LABORATORY DATA: Her white count 6.9, hemoglobin 9.7, hematocrit 27.6, MCV of 92 and a platelet count of 207. Electrolytes reveal a potassium of only 2.6. Her anion gap is low. Her BUN and creatinine are 33 and 1. LFTs are markedly elevated with an AST of 608, ALT of 295 and an alk phos of 596. ProBNP is also high. She had a Chest x-ray in the emergency room, which reveals no active pulmonary disease. ASSESSMENT AND PLAN: Elderly female with weight loss, anemia, history of gastric bypass several years ago, now with cirrhosis, markedly elevated liver function tests, must rule out occult malignancy. We will wait for a Gastroenterology input and a possible magnetic resonance cholangiopancreatography to rule out a pancreatic malignancy as all her CT scans have been negative in the past. She has also had a bone marrow examination as an outpatient, which did not reveal any malignancy either. Her anemia is likely secondary to nutritional deficiency of iron and B12, but she has been unable to follow up for iron infusions as she was originally doing several years ago. We will start IV iron as well as B12 IM. Monitor counts closely. Await Gastroenterology input. Thank you for the consult. We will follow. Madelin Guo MD
[2017-10-04] MEDS ORDERED: Sodium Chloride 0.9% 1,000 ML IV STA (15:57)
[2017-10-04] MEDS ORDERED: Enoxaparin 30 mg Syringe SC ONE (19:23)
[2017-10-04] MEDS ORDERED: Potassium Chloride 40 mEq/30 ml LIQ UD PO ONE (19:46)
--- NOTE | 2017-10-04 19:59 | HP ---
HISTORY OF PRESENT ILLNESS: Patient is a 62 years old who was sent to [facility] for rehab, but patient's usual workup showed worsening LFTs and increasing generalized weakness. Patient was unable to get out of bed or ambulate. She has poor oral intake also, so she was transferred to emergency room for further evaluation. She states she does have appetite, but the food does not taste good. Generalized weakness. PAST MEDICAL HISTORY: Significant for, 1. Chronic anemia secondary to status post gastric bypass and anemia secondary to malnutrition for many, many years. 2. History of hypertension, but currently hypotensive. 3. Multiple sclerosis. 4. History of sarcoidosis. 5. History of nephrolithiasis, requiring ureteral stent, but that was removed on previous two admissions. 6. Significant weight loss. 7. Cirrhosis of liver. 8. Hypoalbuminemia. PAST SURGICAL HISTORY: Significant for gastric bypass and recent paracentesis. ALLERGIES: SHE IS ALLERGIC TO BLACK PEPPER, CODEINE, PENICILLIN, AND SULFA DRUGS. SOCIAL HISTORY: She is single. She denies smoking or alcohol use. Lives with her son. PHYSICAL EXAMINATION: GENERAL: She looks pale, cachectic. VITAL SIGNS: She is afebrile, pulse 60, respirations 20, blood pressure 70/60. LUNGS: Bilateral fair air flow. HEART: S1 and S2 audible. ABDOMEN: Soft. No rebound, no guarding. NEUROLOGIC: Patient is awake and alert, able to communicate. LABORATORY EXAM: WBC 6.9, hemoglobin 9.7, hematocrit 27.6, platelet 207. Chemistry: Sodium 132, potassium 2.6, chloride 90, CO2 of 39, BUN 33, creatinine 1. AST 608, ALT 295, alk phos is 596. BNP 1380. ASSESSMENT: 1. Significant weight loss. 2. Abnormal liver function tests, etiology unclear. 3. Cirrhosis of liver. 4. Cirrhotic ascites. 5. Chronic anemia. 6. Status post gastric bypass. PLAN: Start patient on IV fluids. She was given iron infusion. Continue her on Protonix and give her a couple of doses of albumin to raise her blood pressure. We will discuss with Dr. Alvarado and we will order for MRCP. We will follow up on her electrolyte in a.m. Rad Onofre MD [facility] # [id number]
[2017-10-04] MEDS: Sodium Chloride 0.9% 1,000 ML IV SCH (20:31)
[2017-10-04 20:41] LABS: IRON 73 ug/dL (45-180)
--- NOTE | 2017-10-04 20:48 | CP.PCM.CON ---
History of Present Illness - History of Present Illness History of Present Illness: ICU consult note: Dr. Blanco Patient is a 62 year old female with past medical history of chronic anemia, Hypertension, multiple sclerosis, sarcoidosis, history of pancreatitis, nephrolithiasis, S/P left ureteral stent who presented to [facility] from [facility] because of lab abnormalities. Patient was found to be hypokalemic , hypotensive, and dehydrated. Patient herself denies any complaints at present , and denies any burning on urination, any fevers, chills, nausea, vomiting, diarrhea, heart palpitations or chest pain. Patient denies any chronic breathing problems, and denies any current shortness of breath. Patient does complain of some swelling in her left arm. Surgical History: Ureteral stent Medical History: Chronic anemia, hypertension, multiple sclerosis, nephrolithiasis Allergies: PCN, Sulfa, Codeine, Black Pepper Social History: Patient denies alcohol, tobacco, illicits Family History: Non-contributory Medications: Reviewed, see MAR PMD: Dr. Onofre Review of Systems: 12 point ROS obtained and negative except as per HPI Past Patient History - Infectious Disease Hx of Infectious Diseases: None - Past Social History Smoking Status: Former Smoker - CARDIAC Hx Cardiac Disorders: No - PULMONARY Hx Respiratory Disorders: Yes (SMOKED CIGARETTES) Other/Comment: SARCOIDOSIS - NEUROLOGICAL Hx Neurological Disorder: No - HEENT Hx HEENT Problems: Yes Other/Comment: 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 - RENAL Hx Chronic Kidney Disease: Yes (L KIDNEY CYST,H/O LITHOTRYPSIES) Hx Kidney Stones: Yes - ENDOCRINE/METABOLIC Hx Endocrine Disorders: Yes Hx Hyperthyroidism: Yes - HEMATOLOGICAL/ONCOLOGICAL Hx Blood Disorders: Yes Hx Anemia: Yes Hx Blood Transfusions: Yes - INTEGUMENTARY Hx Dermatological Problems: Yes Hx Cellulitis: Yes - MUSCULOSKELETAL/RHEUMATOLOGICAL Hx Musculoskeletal Disorders: Yes Other/Comment: MS - GASTROINTESTINAL Hx Gastrointestinal Disorders: Yes - GENITOURINARY/GYNECOLOGICAL Hx Genitourinary Disorders: Yes (nephrolithiasis) - PSYCHIATRIC Hx Psychophysiologic Disorder: Yes Hx Depression: Yes Hx Substance Use: No - SURGICAL HISTORY Hx Mastectomy: No - ANESTHESIA Hx Anesthesia Reactions: No Hx Malignant Hyperthermia: No Meds Allergies/Adverse Reactions: Allergies Allergy/AdvReac Type Severity Reaction Status Date / Time black pepper Allergy ITCHING Verified 10/04/17 18:19 codeine Allergy NAUSEA Verified 10/04/17 18:19 Penicillins Allergy SWELLING Verified 10/04/17 18:19 Sulfa (Sulfonamide Allergy RASH Verified 10/04/17 18:19 Antibiotics) - Medications Medications: Current Medications Albumin Human (Albumin Human 25% (12.5 Gm/50 Ml)) 12.5 gm IV Q8H [facility] Buspirone HCl (Buspar) 5 mg PO BID [facility] PRN Reason: Protocol Last Admin: 10/04/17 19:55 Dose: Not Given Citalopram Hydrobromide (Celexa) 20 mg PO DAILY [facility] Last Admin: 10/04/17 20:01 Dose: Not Given Cyanocobalamin (Vitamin B12 1000 Mcg/Ml Inj) 1,000 mcg IM DAILY [facility] Stop: 10/08/17 15:25 Last Admin: 10/04/17 17:50 Dose: 1,000 mcg Enoxaparin Sodium (Lovenox) 30 mg SC Q12H [facility] PRN Reason: Protocol Gabapentin (Neurontin) 300 mg PO TID [facility] PRN Reason: Protocol Last Admin: 10/04/17 20:02 Dose: Not Given Iron Sucrose 100 mg/ Sodium (Chloride) 105 mls @ 210 mls/hr IV DAILY [facility] Stop: 10/09/17 15:31 Sodium Chloride (Sodium Chloride 0.9%) 1,000 mls @ 100 mls/hr IV .Q10H [facility] Oxycodone HCl (Oxycontin Extended Release Tab) 20 mg PO Q12 [facility] Pantoprazole Sodium (Protonix Ec Tab) 40 mg PO 0600 [facility] Physical Exam - Constitutional Appears: Well - Head Exam Head Exam: ATRAUMATIC, NORMAL INSPECTION, NORMOCEPHALIC - Eye Exam Eye Exam: EOMI, Normal appearance, PERRL Pupil Exam: NORMAL ACCOMODATION, PERRL - ENT Exam ENT Exam: Mucous Membranes Moist, Normal Exam - Neck Exam Neck exam: Positive for: Normal Inspection - Respiratory Exam Respiratory Exam: Clear to Auscultation Bilateral, NORMAL BREATHING PATTERN - Cardiovascular Exam Cardiovascular Exam: REGULAR RHYTHM - GI/Abdominal Exam GI & Abdominal Exam: Normal Bowel Sounds, Soft. absent: Tenderness - Extremities Exam Extremities exam: Positive for: normal inspection - Back Exam Back exam: NORMAL INSPECTION - Neurological Exam Neurological exam: Alert, CN II-XII Intact, Normal Gait, Oriented x3, Reflexes Normal - Psychiatric Exam Psychiatric exam: Normal Affect, Normal Mood - Skin Skin Exam: Dry, Intact, Normal Color, Warm Results - Vital Signs Recent Vital Signs: Last Vital Signs Temp 97.4 F L 10/04/17 16:00 Pulse 66 10/04/17 16:38 Resp 18 10/04/17 16:00 BP 60/48 L 10/04/17 16:20 Pulse Ox 98 10/04/17 17:17 - Labs Result Diagrams: 10/04/17 11:15 10/04/17 11:15 Labs: Laboratory Results - last 24 hr 10/04/17 20:29 Retic Count 0.61 Assessment & Plan - Assessment and Plan (Free Text) Assessment: Assessment Patient is a 62 year old female with past medical history of chronic anemia, Hypertension, multiple sclerosis, sarcoidosis, history of pancreatitis, nephrolithiasis, S/P left ureteral stent who presented to [facility] from [facility] because of lab abnormalities. Plan: - Hypokalemia - patient is on PO potassium and received IV potassium - DVT - patient is getting therapeutic lovenox - Dehydration - patient on normal saline - CBC, CMP reviewed; Mg/phos ordered stat. - No respiratory distress noted - but patient's oxygen stats are reportedly low , patient is on nasal cannula. Keep sats above 90% - UA ordered
[2017-10-04 20:50] LABS: % IRON SATURATION 59 % (20-55); TOTAL IRON BINDING CAPACITY 125 ug/dL (265-497)
[2017-10-04 20:51] LABS: INR 1.06 (0.93-1.08); PROTHROMBIN TIME 12.1 SECONDS (9.4-12.5)
[2017-10-04 21:47] VITALS: BMI 15.4
[2017-10-04] MEDS ORDERED: Pneumococcal 23-Valent Vaccine IM ONE (21:47)
[2017-10-04] MEDS: oxyCODONE 20 mg ER Tab (oxyCONTIN) PO SCH (22:27)
[2017-10-04] MEDS: Albumin Human 25% (12.5 gm/50 ml) IV SCH (22:27)
[2017-10-05] MEDS: Albumin Human 25% (12.5 gm/50 ml) IV SCH ×3 (03:44→17:13)
[2017-10-05] MEDS: Pantoprazole 40 mg EC Tab PO SCH (05:29)
[2017-10-05 06:20] LABS: HEMOGLOBIN 9.4 g/dL (12.0-16.0); MEAN CELL VOLUME 92.2 fl (80.0-105.0); MEAN CORPUSCULAR HGB CONC 34.7 g/dl (31.0-37.0); MEAN PLATELET VOLUME 8.9 fl (7.0-11.0); RBC 2.94 10^6/uL (3.5-6.1); WHITE BLOOD COUNT 6.2 10^3/ul (4.5-11.0)
[2017-10-05 07:13] LABS: ALB/GLOB RATIO 0.8 (1.1-1.8); ALBUMIN 1.9 g/dL (3.0-4.8); ALT/SGPT 311 U/L (7-56); AST/SGOT 629 U/L (14-36); BLOOD UREA NITROGEN 27 mg/dL (7-21); GFR AFRICAN-AMERICAN > 60; GFR NON-AFRICAN AMERICAN > 60
--- NOTE | 2017-10-05 09:45 | US ---
PROCEDURE: Left upper extremity venous ultrasound HISTORY: Arm pain and swelling. Evaluate for deep venous thrombosis. PHYSICIAN(S): Kamlesh Ayers MD. FINDINGS: There is heterogeneous partially occlusive thrombus noted at the junction of the left internal jugular vein and left subclavian vein. The visualized left brachial and superficial veins in the upper extremity are patent IMPRESSION: 1. Subacute partially occlusive thrombus at the junction of the left internal jugular vein and subclavian vein
[2017-10-05] MEDS: Enoxaparin 30 mg Syringe SC SCH ×2 (10:12→21:28)
[2017-10-05] MEDS: oxyCODONE 20 mg ER Tab (oxyCONTIN) PO SCH ×2 (10:12→21:27)
[2017-10-05] MEDS ORDERED: Sodium Chloride 0.9% 500 ML IV STA (10:18)
[2017-10-05 13:33] LABS: FOLATE 12.2 ng/mL
[2017-10-05] MEDS ORDERED: Gadodiamide 287 MG/ML VIAL (15ML) IV ONE (13:57)
--- NOTE | 2017-10-05 14:50 | PN ---
DATE: SUBJECTIVE: The patient is a 62-year-old seen and examined, lying in bed, seems to be comfortable. Complains of some back pain, complains of generalized joint pain. Denies any nausea. Does not like the nondiabetic food. She states she is not diabetic, wants regular food. PHYSICAL EXAMINATION: VITAL SIGNS: She is afebrile, pulse 64, respiration 17, blood pressure 105/76. LUNGS: Bilateral good air flow. No rhonchi or crackles. HEART: S1, S2 audible. ABDOMEN: Soft. Nontender. No rebound. No guarding. NEUROLOGIC: The patient is awake and alert, able to communicate, has generalized weakness. EXTREMITIES: Bilateral legs, +2 edema. LABORATORY DATA: WBC 6.2, hemoglobin 9.4, hematocrit 27, platelet 184. Chemistry: Sodium 132, potassium 2.6, chloride 91, CO2 of 41, BUN 27, creatinine 0.8, blood sugar of 66. Her AST 629, ALT 311, alkaline phosphatase is 486, albumin 1.9, total protein 4. In left arm, she has subacute partially occlusive thrombus. ASSESSMENT: 1. Anemia. 2. Hypalbuminemia. 3. Hypotension secondary to third spacing and low intravascular pressure. 4. Cirrhosis of liver. 5. Status post gastric bypass, probably malnutrition. 6. Chronic anemia. 7. History of gastric bypass. 8. Abnormal liver function tests, etiology still unclear. 9. Electrolyte imbalance. PLAN: The patient is currently on IV albumin to maintain her blood pressure. Keep her on IV fluid. Awaiting MRCP results. We will supplement her potassium. Continue her on IV albumin for another 24 hours. She has been given Venofer daily. She is on DVT prophylaxis. Continue her on Protonix. We will follow up in a.m. Rad Onofre MD
--- NOTE | 2017-10-05 15:14 | MRI ---
PROCEDURE: MRI Abdomen with and without contrast with MRCP imaging HISTORY: Abnormal liver function tests. Weight loss COMPARISON: None available. TECHNIQUE: Multisequence, multiplanar MR images of the abdomen with and without gadolinium contrast enhancement. 15 cc of Omniscan FINDINGS: LIVER: The liver has a hypo intense appearance which is suggestive of hemochromatosis. The spleen is also hypo intense. There are no focal lesions. GALLBLADDER: Not visible. SPLEEN: Unremarkable. PANCREAS: Unremarkable. ADRENALS: Unremarkable. KIDNEYS: Unremarkable. AORTA: No aneurysm. ASCITES: None. PERITONEUM: Severe ascites LYMPH NODES: Unremarkable. OTHER FINDINGS: MRCP images were limited by the large amount of ascites. There is no evidence of biliary dilatation. IMPRESSION: Severe ascites. Hypointense appearance of the liver and spleen suggesting hemochromatosis.
--- NOTE | 2017-10-05 15:58 | CON ---
DATE: 10/04/2017 HISTORY OF PRESENT ILLNESS: This patient was seen and evaluated earlier today. This is a 62-year-old patient with past medical history of multiple sclerosis, sarcoidosis, hypertension, anemia, was recently in the hospital, was found to be anemic and ascites, new onset. Has paracentesis done with SAAG ratio of less than 1.1. The patient also found to have LFT elevation, was due to have an outpatient MRCP. The enzymes tend to go upward trend. Also, recommended at that time to have a pelvic sonogram to evaluate the ascites. The patient also has a history of urinary tract infection, hydronephrosis, status post ureteric stent removal recently in the hospital, also, had urinary tract infection along with this ascites. The patient was found to have increased LFTs. The patient was transferred for further evaluation. The patient also complains of weakness. Other past medical history is as above. History of bariatric surgery, endoscopy done last month revealed status post partial gastrectomy. The patient had history of pancreatitis also in the past. The patient had lower extremity cellulitis and chronic ulcerations, has been on wound dressings. The patient was found to have increasing LFTs transferred to the hospital from the snf. ALLERGIES: THE PATIENT HAS MULTIPLE ALLERGIES INCLUDING CODEINE, PENICILLIN AND SULFONAMIDE. SOCIAL HISTORY: She is an ex-smoker. No alcohol use. FAMILY HISTORY: Noncontributory. REVIEW OF SYSTEMS: Positive as above. Other systems reviewed. LABORATORY DATA: Hemoglobin 9.7, hematocrit 27.6, WBC 6.9, platelets 207. The patient was LFTs, AST 648, ALT 295, alkaline phosphatase 596. Potassium is 2.6. IMPRESSION 1. History of weight loss, cachectic. 2. Anemia. 3. New-onset ascites, serum ascites albumin gradient ratio less than 1.1. Rule out occult malignancy. 4. Ascites. Etiology is unclear. Request for Gynecologic evaluation and also, pelvic transvaginal sonogram. RECOMMENDATIONS 1. The patient did complain of some difficulty swallowing. I gave a glass of water, she was able to drink it completely with no difficulty. The patient did have an endoscopy in last admission and showed combination of Billroth II and sleeve-type of surgery. The patient would benefit from colonoscopy five years from the time of last colonoscopy. This can be considered next year after followup. 2. I would recommend MRCP to further evaluate and supplement the potassium. The patient initially had some difficulty in swallowing the potassium, able to swallow. 3. to pureed diet. 4. MRI of the abdomen with and without contrast with MRCP to further evaluate the liver enzymes. The patient may need a liver biopsy. We would also request a pelvic sonogram and transvaginal sonogram to further evaluate the ovaries in view of the ascites. Thank you very much for allowing us to participate in the care of the patient. Ami Alvarado MD
[2017-10-05] MEDS: Sodium Chloride 0.9% 1,000 ML IV SCH (17:14)
--- NOTE | 2017-10-05 17:33 | CP.PCM.PN ---
<Jenny,Kovil V - Last Filed: 10/05/17 22:52> Objective - Vital Signs/Intake and Output Vital Signs (last 24 hours): Temp Pulse Resp BP Pulse Ox 97.3 F L 55 L 19 114/94 H 92 L 10/05/17 16:00 10/05/17 20:45 10/05/17 20:45 10/05/17 20:45 10/05/17 20:45 Intake and Output: 10/05/17 10/06/17 18:59 06:59 Intake Total 120 540 Balance 120 540 - Medications Medications: Current Medications Albumin Human (Albumin Human 25% (12.5 Gm/50 Ml)) 12.5 gm IV Q8H [facility] Last Admin: 10/05/17 17:13 Dose: 12.5 gm Buspirone HCl (Buspar) 5 mg PO BID [facility] PRN Reason: Protocol Last Admin: 10/05/17 17:12 Dose: Not Given Citalopram Hydrobromide (Celexa) 20 mg PO DAILY [facility] Last Admin: 10/05/17 10:12 Dose: 20 mg Cyanocobalamin (Vitamin B12 1000 Mcg/Ml Inj) 1,000 mcg IM DAILY [facility] Stop: 10/08/17 15:25 Last Admin: 10/05/17 10:12 Dose: 1,000 mcg Enoxaparin Sodium (Lovenox) 30 mg SC Q12H [facility] PRN Reason: Protocol Last Admin: 10/05/17 21:28 Dose: 30 mg Gabapentin (Neurontin) 300 mg PO TID [facility] PRN Reason: Protocol Last Admin: 10/05/17 17:12 Dose: Not Given Iron Sucrose 100 mg/ Sodium (Chloride) 105 mls @ 210 mls/hr IV DAILY [facility] Stop: 10/09/17 15:31 Last Admin: 10/05/17 10:14 Dose: 210 mls/hr Sodium Chloride (Sodium Chloride 0.9%) 1,000 mls @ 100 mls/hr IV .Q10H [facility] Last Admin: 10/05/17 17:14 Dose: 100 mls/hr Oxycodone HCl (Oxycontin Extended Release Tab) 20 mg PO Q12 [facility] Last Admin: 10/05/17 21:27 Dose: Not Given Pantoprazole Sodium (Protonix Ec Tab) 40 mg PO 0600 [facility] Last Admin: 10/05/17 05:29 Dose: Not Given - Labs Labs: 10/05/17 06:00 10/05/17 06:00 PT 12.1 SECONDS (9.4-12.5) 10/04/17 20:29 INR 1.06 (0.93-1.08) 10/04/17 20:29 APTT 28.0 Seconds (25.1-36.5) 10/04/17 20:29 Attending/Attestation - Attestation I have personally seen and examined this patient.: Yes I have fully participated in the care of the patient.: Yes I have reviewed all pertinent clinical information, including history, physical exam and plan: Yes Notes (Text): This is an addendum to GI progress report dictated by Marley Fam APN.The patient was seen and examined earlier. Medical records, lab studies, imagings were reviewed. Last 24 hours events reviewed. Agreed with the above treatment plan as outlined in Marley Fam APN's notes with the addition of the following patient is tolerating diet Abdomen softly distended MRI scan reviewed Previous SAAG ratio WAS LESS than 1.1.suggestive of rule out malignancy but the cytology negative Patient does have elevated tumor markers Discussed with the Dr. Kamlesh Ayers for large volume paracentesis for cytology Evaluation of this fluid, repeat SAAG ratio, possible liver biopsy 10/05/17 22:52 <Marley Fam - Last Filed: 10/06/17 17:17> Subjective - Date & Time of Evaluation Date of Evaluation: 10/05/17 Time of Evaluation: 11:35 - Subjective Subjective: Seen and examined at the bedside earlier today, chart was reviewed. Patient denies nausea, vomiting but does have some abdominal discomfot. Patient is noted to have episodes of hypotension yesterday.patient went for MRCP/MRI, report suggestive of hemachromatosis and ascites. Objective - Vital Signs/Intake and Output Vital Signs (last 24 hours): Temp Pulse Resp BP Pulse Ox 97.3 F L 71 18 87/57 L 97 10/05/17 16:00 10/05/17 16:00 10/05/17 16:00 10/05/17 16:00 10/05/17 16:00 Intake and Output: 10/05/17 10/05/17 06:59 18:59 Intake Total 980 120 Balance 980 120 - Medications Medications: Current Medications Albumin Human (Albumin Human 25% (12.5 Gm/50 Ml)) 12.5 gm IV Q8H [facility] Last Admin: 10/05/17 17:13 Dose: 12.5 gm Buspirone HCl (Buspar) 5 mg PO BID [facility] PRN Reason: Protocol Last Admin: 10/05/17 17:12 Dose: Not Given Citalopram Hydrobromide (Celexa) 20 mg PO DAILY [facility] Last Admin: 10/05/17 10:12 Dose: 20 mg Cyanocobalamin (Vitamin B12 1000 Mcg/Ml Inj) 1,000 mcg IM DAILY [facility] Stop: 10/08/17 15:25 Last Admin: 10/05/17 10:12 Dose: 1,000 mcg Enoxaparin Sodium (Lovenox) 30 mg SC Q12H [facility] PRN Reason: Protocol Last Admin: 10/05/17 10:12 Dose: 30 mg Gabapentin (Neurontin) 300 mg PO TID [facility] PRN Reason: Protocol Last Admin: 10/05/17 17:12 Dose: Not Given Iron Sucrose 100 mg/ Sodium (Chloride) 105 mls @ 210 mls/hr IV DAILY [facility] Stop: 10/09/17 15:31 Last Admin: 10/05/17 10:14 Dose: 210 mls/hr Sodium Chloride (Sodium Chloride 0.9%) 1,000 mls @ 100 mls/hr IV .Q10H [facility] Last Admin: 10/05/17 17:14 Dose: 100 mls/hr Oxycodone HCl (Oxycontin Extended Release Tab) 20 mg PO Q12 [facility] Last Admin: 10/05/17 10:12 Dose: Not Given Pantoprazole Sodium (Protonix Ec Tab) 40 mg PO 0600 [facility] Last Admin: 10/05/17 05:29 Dose: Not Given - Labs Labs: 10/05/17 06:00 10/05/17 06:00 PT 12.1 SECONDS (9.4-12.5) 10/04/17 20:29 INR 1.06 (0.93-1.08) 10/04/17 20:29 APTT 28.0 Seconds (25.1-36.5) 10/04/17 20:29 - Constitutional Appears: No Acute Distress, Cachectic - Head Exam Head Exam: NORMOCEPHALIC - Eye Exam Eye Exam: Normal appearance. absent: Scleral icterus - ENT Exam ENT Exam: Mucous Membranes Moist - Neck Exam Neck Exam: Normal Inspection - Respiratory Exam Respiratory Exam: NORMAL BREATHING PATTERN. absent: Respiratory Distress - Cardiovascular Exam Cardiovascular Exam: +S1, +S2 - GI/Abdominal Exam GI & Abdominal Exam: Distended, Soft, Tenderness, Normal Bowel Sounds. absent: Guarding, Rebound - Extremities Exam Extremities Exam: absent: Calf Tenderness, Pedal Edema - Neurological Exam Neurological Exam: Alert, Awake, Oriented x3 - Skin Skin Exam: Dry, Warm Assessment and Plan - Assessment and Plan (Free Text) Assessment: Assessment: Hypokalemia Elevated liver enzymes Status post MRCP, findings are suggestive of hemachromatosis and ascites Elevated CA 199/CA 125 Weight loss Anemia Plan: Requests evaluation with interventional radiology for diagnostic paracentesis Pelvic ultrasound/transvaginal ultrasound Diet as tolerated Trend LFTs D/C IV Iron Continue PPI On Lovenox Hematology follow-up Seen and discussed with Dr. Alvarado.
[2017-10-06] MEDS: Albumin Human 25% (12.5 gm/50 ml) IV SCH ×3 (00:48→21:30)
[2017-10-06] MEDS ORDERED: oxyCODONE 20 mg ER Tab (oxyCONTIN) PO ONE (04:23)
[2017-10-06] MEDS: Sodium Chloride 0.9% 1,000 ML IV SCH (04:35)
[2017-10-06] MEDS: Pantoprazole 40 mg EC Tab PO SCH (05:01)
[2017-10-06 06:25] LABS: HEMOGLOBIN 8.9 g/dL (12.0-16.0); MEAN CELL VOLUME 92.9 fl (80.0-105.0); MEAN CORPUSCULAR HEMOGLOBIN 31.8 pg (25.0-35.0); MEAN CORPUSCULAR HGB CONC 34.2 g/dl (31.0-37.0); MEAN PLATELET VOLUME 9.3 fl (7.0-11.0); RBC 2.8 10^6/uL (3.5-6.1); WHITE BLOOD COUNT 5.8 10^3/ul (4.5-11.0)
[2017-10-06 06:44] LABS: ALB/GLOB RATIO 0.9 (1.1-1.8); ALBUMIN 1.9 g/dL (3.0-4.8); ALT/SGPT 202 U/L (7-56); AST/SGOT 287 U/L (14-36); BLOOD UREA NITROGEN 19 mg/dL (7-21); CALCIUM 7.1 mg/dL (8.4-10.5); GFR AFRICAN-AMERICAN > 60; GFR NON-AFRICAN AMERICAN > 60
[2017-10-06] MEDS: Enoxaparin 30 mg Syringe SC SCH ×2 (09:34→21:31)
[2017-10-06] MEDS: oxyCODONE 20 mg ER Tab (oxyCONTIN) PO SCH ×3 (09:35→21:30)
--- NOTE | 2017-10-06 10:15 | US ---
HISTORY: ascites, r/o ovarian lesion COMPARISON: None available. TECHNIQUE: Transabdominal and transvaginal pelvic ultrasound was performed. FINDINGS: UTERUS: Measures 7.8 x 3.0 x 3.8 cm. Normal in size and appearance. There is a 1.4 x 1.3 x 1.1 cm intramural fibroid in the midbody to the left. ENDOMETRIUM: Measures 2.8 mm in diameter. Normal in appearance. CERVIX: No cervical abnormality identified. RIGHT OVARY: Not visualized. LEFT OVARY: Not visualized. FREE FLUID: There is large amount of free fluid in the pelvis. OTHER FINDINGS: None. IMPRESSION: 1.4 cm intramural fibroid in the midbody of the uterus to the left. Both ovaries are not visualized. No adnexal mass. Large amount of free fluid in the pelvis.
[2017-10-06] MEDS: Potassium Chl 40mEq & D5W 1,000 ML IV SCH (14:44)
--- NOTE | 2017-10-06 15:45 | PN ---
DATE: SUBJECTIVE: The patient is 62 years old, seen and examined, lying in bed, seems to be comfortable, does not like pureed food, wanted to have regular food. Denies any nausea. She states she does not have appetite for this food. PHYSICAL EXAMINATION: VITAL SIGNS: She is afebrile, pulse 59, respirations 18, blood pressure 89/58. LUNGS: Bilateral good airflow. No rhonchi or crackle. HEART: S1 and S2 audible. ABDOMEN: Soft, nontender. No rebound. No guarding. NEUROLOGIC: The patient is awake and alert, able to communicate. Bilateral leg +2 edema. LABORATORY DATA: WBC 5.8, hemoglobin 8.9, hematocrit 26, platelets 167. Chemistry: Sodium 134, potassium 2.4, chloride 95, CO2 of 37. BUN 19, creatinine 0.6. Blood sugar of 71. Her AST 287, ALT 202, alkaline phosphatase is 334. Albumin is 1.9. CA 19-9 is 238, CA 125 is 330. Had an MRCP done, which shows ascites and transvaginal sonogram shows 1.4 cm intramural fibroid in the midbody of the uterus. Both ovaries are not visualized. No adnexal mass. Large amount of fluid in the pelvis seen. ASSESSMENT: 1. Electrolyte imbalance. 2. Ascites, etiology is still unclear, probably cirrhosis of liver. 3. Malnutrition, significant weight loss. 4. Chronic anemia. 5. Hypokalemia. PLAN: We will continue on IV albumin for another 24 hours and give her IV fluid with potassium supplementation. Follow up electrolyte. Out of bed to chair. Rad Onofre MD
--- NOTE | 2017-10-06 17:17 | CP.PCM.PN ---
Subjective - Date & Time of Evaluation Date of Evaluation: 10/06/17 Time of Evaluation: 10:20 - Subjective Subjective: Seen and examined at the bedside earlier today, chart review. Patient tolerating breakfast, no reports of nausea, vomiting or abdominal pain. No acute overnight events reported. Awaiting to go for pelvis and transvaginal ultrasound. Objective - Vital Signs/Intake and Output Vital Signs (last 24 hours): Temp Pulse Resp BP Pulse Ox 97.1 F L 58 L 18 89/58 L 100 10/06/17 08:30 10/06/17 14:00 10/06/17 08:30 10/06/17 08:30 10/06/17 08:30 Intake and Output: 10/06/17 10/06/17 06:59 18:59 Intake Total 960 Balance 960 - Medications Medications: Current Medications Albumin Human (Albumin Human 25% (12.5 Gm/50 Ml)) 12.5 gm IV Q8H [facility] Last Admin: 10/06/17 11:23 Dose: 12.5 gm Buspirone HCl (Buspar) 5 mg PO BID [facility] PRN Reason: Protocol Last Admin: 10/06/17 09:33 Dose: Not Given Citalopram Hydrobromide (Celexa) 20 mg PO DAILY [facility] Last Admin: 10/06/17 09:33 Dose: Not Given Cyanocobalamin (Vitamin B12 1000 Mcg/Ml Inj) 1,000 mcg IM DAILY [facility] Stop: 10/08/17 15:25 Last Admin: 10/06/17 09:37 Dose: 1,000 mcg Enoxaparin Sodium (Lovenox) 30 mg SC Q12H [facility] PRN Reason: Protocol Last Admin: 10/06/17 09:34 Dose: 30 mg Gabapentin (Neurontin) 300 mg PO TID [facility] PRN Reason: Protocol Last Admin: 10/06/17 13:59 Dose: 300 mg Potassium Chloride/Dextrose (Potassium Chl 40 Meq In D5w) 1,000 mls @ 75 mls/ hr IV .[id number] [facility] Last Admin: 10/06/17 14:44 Dose: 75 mls/hr Oxycodone HCl (Oxycontin Extended Release Tab) 20 mg PO Q12 [facility] Last Admin: 10/06/17 12:10 Dose: 20 mg Pantoprazole Sodium (Protonix Ec Tab) 40 mg PO 0600 [facility] Last Admin: 10/06/17 05:01 Dose: 40 mg - Labs Labs: 10/06/17 05:30 10/06/17 05:30 PT 12.1 SECONDS (9.4-12.5) 10/04/17 20:29 INR 1.06 (0.93-1.08) 10/04/17 20:29 APTT 28.0 Seconds (25.1-36.5) 10/04/17 20:29 - Constitutional Appears: No Acute Distress, Cachectic - Eye Exam Eye Exam: Normal appearance. absent: Scleral icterus - ENT Exam ENT Exam: Mucous Membranes Moist - Neck Exam Neck Exam: Normal Inspection - Respiratory Exam Respiratory Exam: NORMAL BREATHING PATTERN. absent: Respiratory Distress - Cardiovascular Exam Cardiovascular Exam: +S1, +S2 - GI/Abdominal Exam GI & Abdominal Exam: Distended, Soft, Normal Bowel Sounds. absent: Guarding, Tenderness, Rebound - Extremities Exam Extremities Exam: absent: Calf Tenderness, Pedal Edema - Neurological Exam Neurological Exam: Alert, Awake, Oriented x3 - Skin Skin Exam: Dry, Warm Assessment and Plan - Assessment and Plan (Free Text) Assessment: Assessment: Elevated liver enzymes Status post MRCP, findings are suggestive of hemachromatosis and ascites Elevated CA 199/CA 125 Weight loss Anemia Plan: Evaluation with interventional radiology for diagnostic paracentesis Pelvic ultrasound/transvaginal ultrasound:this report 1.4 cm intramural fibroid mid body of the ovaries to the left, no adnexal mass, shows free fluid in the pelvis Diet as tolerated Trend LFTs off IV Iron Continue PPI On Lovenox Hematology follow-up Seen and discussed with Dr. Alvarado.
[2017-10-07] MEDS: Potassium Chl 40mEq & D5W 1,000 ML IV SCH ×2 (00:07→02:30)
[2017-10-07] MEDS: Albumin Human 25% (12.5 gm/50 ml) IV SCH ×2 (01:41→10:31)
[2017-10-07] MEDS: Pantoprazole 40 mg EC Tab PO SCH (05:36)
[2017-10-07 06:32] LABS: EOS # 0.1 (0.0-0.7); EOS % 0.9 % (1.5-5.0); GRAN # 3.72 (1.4-6.5); HEMOGLOBIN 8.2 g/dL (12.0-16.0); LYMPH # 1.4 (1.2-3.4); LYMPH % 24.7 % (22.0-35.0); MEAN CELL VOLUME 94.2 fl (80.0-105.0); MEAN CORPUSCULAR HEMOGLOBIN 31.9 pg (25.0-35.0); MEAN CORPUSCULAR HGB CONC 33.9 g/dl (31.0-37.0); MEAN PLATELET VOLUME 9.2 fl (7.0-11.0); MONO # 0.4 (0.1-0.6); MONO % 6.4 % (1.0-6.0); RBC 2.57 10^6/uL (3.5-6.1); RED CELL DISTRIBUTION WIDTH 16.4 % (11.5-14.5); WHITE BLOOD COUNT 5.5 10^3/ul (4.5-11.0)
[2017-10-07 06:55] LABS: ALB/GLOB RATIO 0.9 (1.1-1.8); ALT/SGPT 153 U/L (7-56); AST/SGOT 181 U/L (14-36); BLOOD UREA NITROGEN 15 mg/dL (7-21); CALCIUM 7.7 mg/dL (8.4-10.5); GFR AFRICAN-AMERICAN > 60; GFR NON-AFRICAN AMERICAN > 60
[2017-10-07] MEDS: oxyCODONE 20 mg ER Tab (oxyCONTIN) PO SCH ×2 (09:31→21:08)
[2017-10-07] MEDS: Enoxaparin 30 mg Syringe SC SCH ×2 (10:23→21:08)
--- NOTE | 2017-10-07 11:07 | CP.PCM.PN ---
Subjective - Date & Time of Evaluation Date of Evaluation: 10/07/17 Time of Evaluation: 08:15 - Subjective Subjective: Seen and examined at the bedside earlier today, chart was reviewed. Patient did not like pure and on regular diet. Denies nausea, vomiting, dysphagia. Complains of body pain all over. Complains of abdominal distention. No acute overnight events reported. Objective - Vital Signs/Intake and Output Vital Signs (last 24 hours): Temp Pulse Resp BP Pulse Ox 97.5 F L 64 17 90/62 L 99 10/07/17 08:24 10/07/17 08:24 10/07/17 08:24 10/07/17 08:24 10/07/17 08:24 Intake and Output: 10/07/17 10/07/17 06:59 18:59 Intake Total 600 120 Balance 600 120 - Medications Medications: Current Medications Albumin Human (Albumin Human 25% (12.5 Gm/50 Ml)) 12.5 gm IV DAILY [facility] Buspirone HCl (Buspar) 5 mg PO BID [facility] PRN Reason: Protocol Last Admin: 10/07/17 10:23 Dose: 5 mg Citalopram Hydrobromide (Celexa) 20 mg PO DAILY [facility] Last Admin: 10/07/17 10:23 Dose: 20 mg Cyanocobalamin (Vitamin B12 1000 Mcg/Ml Inj) 1,000 mcg IM DAILY [facility] Stop: 10/08/17 15:25 Last Admin: 10/07/17 10:24 Dose: 1,000 mcg Enoxaparin Sodium (Lovenox) 30 mg SC Q12H [facility] PRN Reason: Protocol Last Admin: 10/07/17 10:23 Dose: 30 mg Gabapentin (Neurontin) 300 mg PO TID [facility] PRN Reason: Protocol Last Admin: 10/07/17 10:23 Dose: 300 mg Potassium Chloride/Dextrose (Potassium Chl 40 Meq In D5w) 1,000 mls @ 75 mls/ hr IV .[id number] [facility] Last Admin: 10/07/17 02:30 Dose: 75 mls/hr Oxycodone HCl (Oxycontin Extended Release Tab) 20 mg PO Q12 [facility] Last Admin: 10/07/17 09:31 Dose: 20 mg Oxycodone/Acetaminophen (Percocet 5/325 Mg Tab) 1 tab PO Q6H [facility] PRN Reason: Pain, moderate (4-7) Stop: 10/10/17 09:59 Pantoprazole Sodium (Protonix Ec Tab) 40 mg PO 0600 [facility] Last Admin: 10/07/17 05:36 Dose: 40 mg - Labs Labs: 10/07/17 05:30 10/07/17 05:30 PT 12.1 SECONDS (9.4-12.5) 10/04/17 20:29 INR 1.06 (0.93-1.08) 10/04/17 20:29 APTT 28.0 Seconds (25.1-36.5) 10/04/17 20:29 - Constitutional Appears: No Acute Distress, Cachectic - Eye Exam Eye Exam: Normal appearance. absent: Scleral icterus - ENT Exam ENT Exam: Mucous Membranes Moist - Respiratory Exam Respiratory Exam: NORMAL BREATHING PATTERN. absent: Respiratory Distress - Cardiovascular Exam Cardiovascular Exam: +S1, +S2 - GI/Abdominal Exam GI & Abdominal Exam: Distended, Soft, Tenderness, Normal Bowel Sounds. absent: Guarding, Rebound - Extremities Exam Extremities Exam: absent: Calf Tenderness, Pedal Edema - Neurological Exam Neurological Exam: Alert, Awake, Oriented x3 Assessment and Plan - Assessment and Plan (Free Text) Assessment: Assessment: Elevated liver enzymes, slowly improving Status post MRCP, findings are suggestive of hemachromatosis and ascites Elevated CA 199/CA 125, Pelvic ultrasound/transvaginal ultrasound:this report 1.4 cm intramural fibroid mid body of the ovaries to the left, no adnexal mass, shows free fluid in the pelvis Weight loss Anemia Plan: pending paracentesis today on regular diet Trend LFTs off IV Iron Continue PPI On Lovenox Hematology follow-up Seen and discussed with Dr. Alvarado
--- NOTE | 2017-10-07 15:07 | PN ---
DATE: SUBJECTIVE: The patient is a 62 years old, seen and examined. She states she is trying hard to eat. She is still complaining of feeling weak. She thinks she needs blood transfusion. The patient is scheduled to have paracentesis done today. PHYSICAL EXAMINATION: GENERAL: She is awake and alert, able to communicate. VITAL SIGNS: She is afebrile, pulse 64, respirations 17, blood pressure 90/62. LUNGS: Bilateral fair airflow, decreased at bases. HEART: S1 and S2 audible. ABDOMEN: Distended and has fluid thrill. EXTREMITIES: Bilateral legs, +2 edema. LABORATORY EXAM: WBC 5.5, hemoglobin 8.2, hematocrit 24, and platelet of 140. Chemistry: Sodium 132, potassium 3.4, chloride 94, CO2 of 36. BUN 15, creatinine 0.5. Blood sugar of 66. Phosphorous 2.9, magnesium 1.7. Her AST 181, ALT 153, and alkaline phosphatase is 266. Transvaginal sonogram and pelvis sonogram unremarkable except fibroid uterus. ASSESSMENT: 1. Probably cirrhosis of liver. 2. Electrolyte imbalance. 3. Chronic anemia. 4. History of gastric bypass. 5. Significant weight loss. 6. Stage II sacral decubitus. 7. Hypoalbuminemia. PLAN: I will cut down her albumin infusion to once a day. She is on Lovenox for her left arm partial DVT. I will continue her on analgesics. She is scheduled to have paracentesis done today. Since oral intake is improving, I will cut down her IV fluid to 50 mL per hour. Rad Onofre MD
--- NOTE | 2017-10-07 15:28 | US ---
PROCEDURE: Ultrasound guided paracentesis. HISTORY: Recurrent ascites. Abdominal pain and distension. Re-evaluate for malignancy. PHYSICIAN(S): Kamlesh Ayers MD. TECHNIQUE: The relative risks and indications for the procedure were explained to the patient and informed written consent obtained. Sonography of the abdomen was performed in a supine position. This revealed a moderate amount of non-loculated ascites, greatest in the right mid abdomen. A puncture site was selected and the area was prepped and draped in the usual sterile fashion. 1% Xylocaine was used to anesthetize the skin and soft tissues. A 7 Swedish paracentesis catheter was trocared into the right mid abdomenand 4800 cc of clear fluid aspirated The appropriate labs were sent. IMPRESSION: Ultrasound-guided paracentesis in the right mid abdomen. 4800 cc of fluid were aspirated. Labs were sent
[2017-10-07] MEDS: Oxycodone/Acetaminophen 5/325 mg Tab PO PRN (17:38)
[2017-10-08] MEDS: Enoxaparin 30 mg Syringe SC SCH ×2 (09:41→22:47)
[2017-10-08] MEDS: oxyCODONE 20 mg ER Tab (oxyCONTIN) PO SCH ×2 (09:42→22:48)
[2017-10-08] MEDS: Pantoprazole 40 mg EC Tab PO SCH (09:44)
[2017-10-08 13:10] LABS: EOS % 0.1 % (1.5-5.0); GRAN # 5.19 (1.4-6.5); GRAN % 74.2 % (50.0-68.0); HEMOGLOBIN 10.3 g/dL (12.0-16.0); LYMPH # 1.3 (1.2-3.4); LYMPH % 18.7 % (22.0-35.0); MEAN CORPUSCULAR HEMOGLOBIN 31.3 pg (25.0-35.0); MEAN CORPUSCULAR HGB CONC 33.7 g/dl (31.0-37.0); MEAN PLATELET VOLUME 9.3 fl (7.0-11.0); MONO # 0.5 (0.1-0.6); RBC 3.29 10^6/uL (3.5-6.1); RED CELL DISTRIBUTION WIDTH 16.1 % (11.5-14.5)
[2017-10-08 13:19] LABS: ALBUMIN 2.1 g/dL (3.0-4.8); ALT/SGPT 161 U/L (7-56); AST/SGOT 159 U/L (14-36); BLOOD UREA NITROGEN 13 mg/dL (7-21); CALCIUM 7.1 mg/dL (8.4-10.5); GFR AFRICAN-AMERICAN > 60; GFR NON-AFRICAN AMERICAN > 60
[2017-10-08] MEDS: Albumin Human 25% (12.5 gm/50 ml) IV SCH (14:34)
[2017-10-08] MEDS: Potassium Chl 40mEq & D5W 1,000 ML IV SCH (14:38)
--- NOTE | 2017-10-08 16:24 | PN ---
DATE: 10/08/2017 SUBJECTIVE: The patient is lying in bed. She has better appetite. She still remains fatigued and also complaining of pain. She also states that current pain medication is not helping. She did have a paracentesis done and about 5 liters of fluid was drawn. She denies any other complaints. PAST MEDICAL HISTORY: As above. PHYSICAL EXAMINATION: VITAL SIGNS: Her vitals are stable. Vitals reveal that the patient is afebrile, pulse of 64, respiratory rate 17 and blood pressure of 90/60. GENERAL: She is awake, alert, oriented x3. LUNGS: Decreased breath sounds at bases, likely secondary to poor effort. CARDIOVASCULAR: S1 and S2 are heard. ABDOMEN: Positive bowel sounds, soft. EXTREMITIES: Bilateral lower extremities reveal 2+ edema. LABORATORY DATA: Her labs revealed a white count of 5.5, hemoglobin 8.2, hematocrit 24 and platelet count of 140. Chemistries are within normal limits except for a low potassium. BUN and creatinine are 15 and 0.5, blood sugar is 66. Her LFTs remain elevated. ASSESSMENT AND PLAN: An elderly female with anemia, which is improved today with hemoglobin of 10.3, likely secondary to blood transfusion. Her chemistries are also better than on admission including liver function tests, which are markedly improved. She also had an MRCP done, which revealed possible evidence of hemochromatosis and CA19-9 as well as CA-125 are also elevated. She did have a transvaginal ultrasound, which only revealed a fibroid uterus. No other pathology is detected. She had a peripheral blood flow cytometry, which did not reveal any pathological lymphadenopathy or nodules. Her MRCP is suggestive of hemochromatosis and severe ascites. An elderly female with extensive weight loss, anemia and now possible complication of hemochromatosis from multiple transfusions. I have reviewed the patient's prior records in my office and there is no evidence of hemochromatosis. Her ferritin has always been below 100. She was also a gastric bypass patient who was receiving IV iron in the office over 2 years ago, but has not followed up in several years and now has had multiple admissions with severe anemia, multiple infections as well as other complications including renal stones and has been getting transfusions more frequently. Possible that hemochromatosis is likely secondary to multiple transfusions. We will also check peripheral blood hemochromatosis gene. We will hold off on any further transfusions unless the patient's hemoglobin drops to below 7. Thank you for the consult. We will follow. Madelin Guo MD
--- NOTE | 2017-10-08 19:14 | PN ---
DATE: SUBJECTIVE: Patient is 62 years old, seen and examined, complaint of generalized legs pain. She states all joints hurt, underwent paracentesis yesterday and almost 5 liters of fluid was removed. PHYSICAL EXAMINATION: VITAL SIGNS: She is afebrile, pulse 64, respirations 17, blood pressure 87/59. LUNGS: Bilateral fair airflow. No rhonchi or crackles. HEART: S1, S2 audible. ABDOMEN: Soft, not distended anymore. EXTREMITIES: Bilateral leg, +1 edema. LABORATORY DATA: WBC 7, hemoglobin 10.3, hematocrit 30.6, platelets 136. Transvaginal sonogram shows absent ovaries. ASSESSMENT: 1. [id number] anemia. 2. Hypoalbuminemia. 3. Questionable hemochromatosis upon MRI of the liver. She also has elevated CA 19-9 and CA-125. 4. History of gastric bypass. 5. Multiple sclerosis. 6. History of sarcoidosis. 7. History of nephrolithiasis. PLAN: Dr. Guo's note reviewed and appreciated. We will do gene study for hemochromatosis. I also discussed with Dr. Alvarado. We will plan for possible laparoscopy to see her any ovarian pathology. We will also get ASSURANCE MANAGER input. Rad Onofre MD
--- NOTE | 2017-10-08 20:39 | CP.PCM.CON ---
History of Present Illness - History of Present Illness History of Present Illness: Surgery Patient is a 62 year old female with past medical history of gatrectomy for gatric polyps, chronic anemia needing multiple transfusion, Hypertension, multiple sclerosis, sarcoidosis, history of pancreatitis, nephrolithiasis, S/P left ureteral stent who presented to [facility] from [facility] because of lab abnormalities. Patient was found to be hypokalemic, hypotensive, and dehydrated. Her K was 2.4 and AST 630, ALT 300. CT abd showed large amount of ascites. MRCP showed ascited and hypodense liver and spleen suggestive of hemachromatosis. US reveals pelvic fluids and no ovarian mass. She underwent paracentesis and aspirated 5L of ascites. Fluids cytology revealed no malignant cells. CA 19-9 and CA 125 was elevated, 238 and 330 repectively. 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 Hgb was 8. With chronic anemia pt had multiple tranfusion in the past and was on IV iron. With hypoalbuminism, also receiving IV albumin for hypotension. Pt reports generalized weakness and genralized muscular skeletal pain. Patient denies any burning on urination, any fevers, chills, nausea, vomiting, diarrhea , heart palpitations or chest pain. Patient denies any vaginal bleeding, abd pain, hematochezia, hematemesis, dysphagia, chronic breathing problems, and denies any current shortness of breath. Pt had partial gastrectomy done for premalignant gastric polyps in 2004 but doesn't remember final pathology result. Denies h/o other CA. Reports Family h/o CA : breast CA, pancreatic CA and tyroid CA. Surgery is consulted for diagnostic laparoscopy and liver biopsy to evaluate for possible maligmancy Surgical History: x2. gatrectomy for premalignant gastric polyps(2004) , ventral hernia repair (2007), CHolecystectomy, Appendectomy Ureteral stent Medical History:Chronic anemia, hypertension, multiple sclerosis, nephrolithiasis, pancreatitis Allergies: PCN, Sulfa, Codeine, Black Pepper Social History:Patient denies alcohol, illicits, former smoker. Quit 20 yrs ago. Review of Systems - Review of Systems Review of Systems: See HPI Past Patient History - Infectious Disease Hx of Infectious Diseases: None - Past Social History Smoking Status: Former Smoker - CARDIAC Hx Cardiac Disorders: No Hx Peripheral Vascular Disease: Yes (left arm dvt.) - PULMONARY Hx Respiratory Disorders: Yes (SMOKED CIGARETTES) Other/Comment: SARCOIDOSIS - NEUROLOGICAL Hx Neurological Disorder: Yes (MS) - HEENT Hx HEENT Problems: Yes Other/Comment: 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 - RENAL Hx Chronic Kidney Disease: Yes (L KIDNEY CYST,H/O LITHOTRYPSIES) Hx Kidney Stones: Yes - ENDOCRINE/METABOLIC Hx Endocrine Disorders: Yes Hx Hyperthyroidism: Yes - HEMATOLOGICAL/ONCOLOGICAL Hx Blood Disorders: Yes Hx Anemia: Yes (iron infusions) - INTEGUMENTARY Hx Dermatological Problems: Yes Other/Comment: 10-04-17 sacral pressure ulcer stage 2 4x2 cm,with minimal serous drainage. Bilateral le edema pitting +4.Extending to abdominal area.Has ascites - MUSCULOSKELETAL/RHEUMATOLOGICAL Hx Musculoskeletal Disorders: Yes Hx Falls: Yes Other/Comment: MS - GASTROINTESTINAL Hx Gastrointestinal Disorders: Yes - GENITOURINARY/GYNECOLOGICAL Hx Genitourinary Disorders: Yes (nephrolithiasis) - PSYCHIATRIC Hx Psychophysiologic Disorder: Yes Hx Depression: Yes Hx Substance Use: No - SURGICAL HISTORY Hx Surgeries: Yes (gastric bypass-multiple times. ureteral stent,lithotrypsies.) Hx Appendectomy: Yes Hx Cholecystectomy: Yes Hx Mastectomy: No - ANESTHESIA Hx Anesthesia Reactions: No Hx Malignant Hyperthermia: No Meds Allergies/Adverse Reactions: Allergies Allergy/AdvReac Type Severity Reaction Status Date / Time black pepper Allergy ITCHING Verified 10/04/17 18:19 codeine Allergy NAUSEA Verified 10/04/17 18:19 Penicillins Allergy SWELLING Verified 10/04/17 18:19 Sulfa (Sulfonamide Allergy RASH Verified 10/04/17 18:19 Antibiotics) - Medications Medications: Current Medications Albumin Human (Albumin Human 25% (12.5 Gm/50 Ml)) 12.5 gm IV DAILY [facility] Last Admin: 10/08/17 14:34 Dose: 12.5 gm Bisacodyl (Dulcolax) 10 mg RC DAILY [facility] Last Admin: 10/08/17 17:19 Dose: 10 mg Buspirone HCl (Buspar) 5 mg PO BID [facility] PRN Reason: Protocol Last Admin: 10/08/17 17:18 Dose: 5 mg Citalopram Hydrobromide (Celexa) 20 mg PO DAILY [facility] Last Admin: 10/08/17 09:41 Dose: 20 mg Enoxaparin Sodium (Lovenox) 30 mg SC Q12H [facility] PRN Reason: Protocol Last Admin: 10/08/17 09:41 Dose: 30 mg Fentanyl (Duragesic) 1 patch TD Q72H [facility] Last Admin: 10/08/17 17:21 Dose: 1 patch Gabapentin (Neurontin) 300 mg PO TID [facility] PRN Reason: Protocol Last Admin: 10/08/17 17:21 Dose: 300 mg Potassium Chloride/Dextrose (Potassium Chl 40 Meq In D5w) 1,000 mls @ 50 mls/ hr IV .Q20H [facility] Last Admin: 10/08/17 14:38 Dose: 50 mls/hr Oxycodone HCl (Oxycontin Extended Release Tab) 20 mg PO Q12 [facility] Last Admin: 10/08/17 09:42 Dose: 20 mg Oxycodone/Acetaminophen (Percocet 5/325 Mg Tab) 1 tab PO Q6H [facility] PRN Reason: Pain, moderate (4-7) Stop: 10/10/17 09:59 Last Admin: 10/07/17 17:38 Dose: 1 tab Pantoprazole Sodium (Protonix Ec Tab) 40 mg PO 0600 [facility] Last Admin: 10/08/17 09:44 Dose: 40 mg Physical Exam - Constitutional Appears: Non-toxic, No Acute Distress, Cachectic, Chronically Ill - Head Exam Head Exam: ATRAUMATIC, NORMAL INSPECTION, NORMOCEPHALIC - Eye Exam Eye Exam: EOMI, Normal appearance, PERRL Pupil Exam: NORMAL ACCOMODATION, PERRL - ENT Exam ENT Exam: Mucous Membranes Moist, Normal Exam - Neck Exam Neck exam: Positive for: Normal Inspection - Respiratory Exam Respiratory Exam: Clear to Auscultation Bilateral, NORMAL BREATHING PATTERN - Cardiovascular Exam Cardiovascular Exam: REGULAR RHYTHM, +S1, +S2 - GI/Abdominal Exam GI & Abdominal Exam: Distended, Normal Bowel Sounds, Soft. absent: Firm, Guarding, Hernia, Mass, Rigid, Tenderness Additional comments: Fluids wave. Well healed muptiple scars. - Rectal Exam Rectal Exam: NORMAL INSPECTION - Exam Exam: NORMAL INSPECTION - Extremities Exam Extremities exam: Positive for: full ROM, normal inspection - Back Exam Back exam: NORMAL INSPECTION - Neurological Exam Neurological exam: Alert, CN II-XII Intact, Normal Gait, Oriented x3, Reflexes Normal - Psychiatric Exam Psychiatric exam: Normal Affect, Normal Mood - Skin Skin Exam: Dry, Intact, Normal Color, Warm Results - Vital Signs Recent Vital Signs: Last Vital Signs Temp 98.5 F 10/08/17 17:33 Pulse 92 H 10/08/17 18:00 Resp 18 10/08/17 17:33 BP 78/54 L 10/08/17 17:33 Pulse Ox 93 L 10/08/17 17:33 - Labs Result Diagrams: 10/08/17 13:06 10/08/17 13:06 Labs: Laboratory Results - last 24 hr 10/08/17 10/08/17 13:06 13:06 WBC 7.0 D RBC 3.29 L Hgb 10.3 L D Hct 30.6 L MCV 93.0 MCH 31.3 MCHC 33.7 RDW 16.1 H Plt Count 136 MPV 9.3 Gran % 74.2 H Lymph % (Auto) 18.7 L Garrett % (Auto) 7.0 H Eos % (Auto) 0.1 L Baso % (Auto) 0.0 Gran # 5.19 Lymph # (Auto) 1.3 Garrett # (Auto) 0.5 Eos # (Auto) 0.0 Baso # (Auto) 0.00 Sodium 130 L Potassium 3.9 Chloride 92 L Carbon Dioxide 34 H Anion Gap 7 L BUN 13 Creatinine 0.5 L Est GFR ( Amer) > 60 Est GFR (Non-Af Amer) > 60 Random Glucose 93 Calcium 7.1 L Total Bilirubin 0.4 AST 159 H ALT 161 H Alkaline Phosphatase 284 H Total Protein 4.2 L Albumin 2.1 L Globulin 2.1 Albumin/Globulin Ratio 1.0 L Assessment & Plan - Assessment and Plan (Free Text) Assessment: DDX cirrhosis v hemachromatosis AST 630, ALT 300. Trending down. CT abd showed large amount of ascites. MRCP showed ascited and hypodense liver and spleen suggestive of hemachromatosis. s/p paracenthesis: aspirated 5L of ascites. Albumin: 1.5-> 2 Serum Ascites albumin gradient (SAAG): -0.5, <1.1: indicative of non-portal hypertension Hgb 8-> 10 r/o malignancy: s/p gatrectomy for premaligmant gatric polyps in 2004. Pt is cachectic. extensive FHx of CA including, thyroidCA, Pancreatic CA, breast CA Ascites Fluids cytology revealed no malignant cells. Peripheral blood cytology revealed no malignancy SAAG: -0.5, <1.1 indicative of non-portal hypertension and peritoneal cause of ascites such as sarcoidosis, peritoneal carcinomatosis, peritoneal mesothelioma CA 19-9: 238, CA 125 330 Plan: -Hemeonc on board: hemachromatosis likely 2/2 multiple transfusion and IV iron for anemia -Receiving albumin for hypotension -GI on board -We will continue to follow -Protein supplement -Trend labs -f/u hemochromatocis DNA -Serial abd exam -Pain control DW Dr. Warren
[2017-10-08] MEDS: Oxycodone/Acetaminophen 5/325 mg Tab PO PRN (23:38)
[2017-10-09] MEDS: Potassium Chl 40mEq & D5W 1,000 ML IV SCH ×3 (01:03→23:24)
--- NOTE | 2017-10-09 05:04 | PN ---
DATE: 10/08/2017 SUBJECTIVE: This patient was seen and evaluated earlier today. Patient did have a large volume paracentesis done yesterday. The patient feels comfortable, tolerating diet. PHYSICAL EXAMINATION: VITAL SIGNS: Afebrile, blood pressure 120/58, pulse 57, respirations 18. HEENT: Atraumatic and anicteric. NECK: Supple. HEART: S1 and S2 heard. LUNGS: Bilateral air entry present. ABDOMEN: Soft. No tenderness. EXTREMITIES: No cyanosis. No clubbing. Dressing present. LABORATORY DATA: Hemoglobin 10.1, hematocrit 30.6, WBC 7, platelets 136. Sodium 130, potassium 3.9, BUN 13, creatinine 0.5. LFTs show downward trend. AST is 159, ALT is 161. AST shows downward trend, however ALT and alkaline phosphatase still remains high. The MRI of the abdomen done was reviewed. Patient had MRCP done, which was reviewed. Ultrasound scan both transabdominal and transvaginal, did not reveal any focal abnormalities. IMPRESSION: 1. Anemia. 2. Weight loss. 3. Abnormal liver function test, etiology is unclear. 4. Rule out hemochromatosis in view of the MRI findings. 5. Ascites. Serum ascites albumin gradient (SAAG) ratio is less than 1.1. Suggestive of possible malignancy, to be ruled out. Elevated CA 19-9 and CA 125. 6. Other comorbidities include multiple sclerosis, sarcoidosis, left nephrolithiasis. RECOMMENDATIONS: 1. Followup of the ascitic fluid, paracentesis cytology report again. The previous cytology was negative. 2. I agree with genetic test for hemochromatosis. 3. Patient did have history of bariatric surgery before. What appears to be a combination of Billroth I and sleeve. 4. Advised to call to discuss the results. 5. I did discuss with Dr. Onofre also earlier. I did discuss with resident service coordinator. Patient is planned to have a laparoscopy. [employer] consult was also requested. Both the transvaginal sonogram and transabdominal sonogram did not visualize the ovaries clearly. Etiology for elevated LFT is unclear. Thank you very much for allowing us to participate in the care of the patient. We will continue closely follow up with her care and suggest further management based on the clinical course. Ami Alvarado MD [facility] # [phone]
[2017-10-09] MEDS: Oxycodone/Acetaminophen 5/325 mg Tab PO PRN ×3 (05:30→21:37)
[2017-10-09 07:27] LABS: BASO # 0.01 K/mm3 (0.0-2.0); BASO % 0.2 % (0.0-3.0); EOS # 0.1 (0.0-0.7); GRAN # 3.59 (1.4-6.5); GRAN % 61.4 % (50.0-68.0); HEMOGLOBIN 8.3 g/dL (12.0-16.0); LYMPH # 1.7 (1.2-3.4); LYMPH % 29.4 % (22.0-35.0); MEAN CELL VOLUME 93.6 fl (80.0-105.0); MEAN CORPUSCULAR HEMOGLOBIN 31.3 pg (25.0-35.0); MEAN CORPUSCULAR HGB CONC 33.5 g/dl (31.0-37.0); MEAN PLATELET VOLUME 9.5 fl (7.0-11.0); MONO # 0.5 (0.1-0.6); RBC 2.65 10^6/uL (3.5-6.1); WHITE BLOOD COUNT 5.9 10^3/ul (4.5-11.0)
--- NOTE | 2017-10-09 07:34 | CP.PCM.PN ---
Subjective - Date & Time of Evaluation Date of Evaluation: 10/09/17 Time of Evaluation: 07:31 - Subjective Subjective: Surgery Pt seen and examined. No acute events. TOlerating diet. REports having good appetite. Denies pain. Agreeable for possible surgery. Objective - Vital Signs/Intake and Output Vital Signs (last 24 hours): Temp Pulse Resp BP Pulse Ox 98.1 F 83 19 83/44 L 96 10/09/17 00:00 10/09/17 02:00 10/09/17 00:00 10/09/17 00:00 10/09/17 00:00 Intake and Output: 10/09/17 10/09/17 06:59 18:59 Intake Total 850 Output Total 800 Balance 50 - Medications Medications: Current Medications Albumin Human (Albumin Human 25% (12.5 Gm/50 Ml)) 12.5 gm IV DAILY [facility] Last Admin: 10/08/17 14:34 Dose: 12.5 gm Bisacodyl (Dulcolax) 10 mg RC DAILY [facility] Last Admin: 10/08/17 17:19 Dose: 10 mg Buspirone HCl (Buspar) 5 mg PO BID [facility] PRN Reason: Protocol Last Admin: 10/08/17 17:18 Dose: 5 mg Citalopram Hydrobromide (Celexa) 20 mg PO DAILY [facility] Last Admin: 10/08/17 09:41 Dose: 20 mg Enoxaparin Sodium (Lovenox) 30 mg SC Q12H [facility] PRN Reason: Protocol Last Admin: 10/08/17 22:47 Dose: 30 mg Fentanyl (Duragesic) 1 patch TD Q72H [facility] Last Admin: 10/08/17 17:21 Dose: 1 patch Gabapentin (Neurontin) 300 mg PO TID [facility] PRN Reason: Protocol Last Admin: 10/08/17 17:21 Dose: 300 mg Potassium Chloride/Dextrose (Potassium Chl 40 Meq In D5w) 1,000 mls @ 50 mls/ hr IV .Q20H [facility] Last Admin: 10/09/17 01:03 Dose: 50 mls/hr Oxycodone HCl (Oxycontin Extended Release Tab) 20 mg PO Q12 [facility] Last Admin: 10/08/17 22:48 Dose: 20 mg Oxycodone/Acetaminophen (Percocet 5/325 Mg Tab) 1 tab PO Q6H [facility] PRN Reason: Pain, moderate (4-7) Stop: 10/10/17 09:59 Last Admin: 10/09/17 05:30 Dose: 1 tab Pantoprazole Sodium (Protonix Ec Tab) 40 mg PO 0600 [facility] Last Admin: 10/08/17 09:44 Dose: 40 mg - Labs Labs: 10/09/17 07:00 10/08/17 13:06 PT 12.1 SECONDS (9.4-12.5) 10/04/17 20:29 INR 1.06 (0.93-1.08) 10/04/17 20:29 APTT 28.0 Seconds (25.1-36.5) 10/04/17 20:29 - Constitutional Appears: No Acute Distress, Cachectic, Chronically Ill - Head Exam Head Exam: ATRAUMATIC, NORMAL INSPECTION, NORMOCEPHALIC - Eye Exam Eye Exam: EOMI, Normal appearance, PERRL Pupil Exam: NORMAL ACCOMODATION, PERRL - ENT Exam ENT Exam: Mucous Membranes Moist, Normal Exam - Neck Exam Neck Exam: Full ROM, Normal Inspection. absent: Lymphadenopathy - Respiratory Exam Respiratory Exam: Clear to Ausculation Bilateral, NORMAL BREATHING PATTERN - Cardiovascular Exam Cardiovascular Exam: REGULAR RHYTHM, +S1, +S2. absent: Murmur - GI/Abdominal Exam GI & Abdominal Exam: Soft, Normal Bowel Sounds. absent: Tenderness - Extremities Exam Extremities Exam: Full ROM, Normal Capillary Refill, Normal Inspection. absent : Joint Swelling, Pedal Edema - Back Exam Back Exam: NORMAL INSPECTION - Neurological Exam Neurological Exam: Alert, Awake, CN II-XII Intact, Normal Gait, Oriented x3 - Psychiatric Exam Psychiatric exam: Normal Affect, Normal Mood - Skin Skin Exam: Dry, Intact, Normal Color, Warm Assessment and Plan - Assessment and Plan (Free Text) Assessment: DDX cirrhosis v hemachromatosis AST 630, ALT 300. Trending down. CT abd showed large amount of ascites. MRCP showed ascited and hypodense liver and spleen suggestive of hemachromatosis. s/p paracenthesis: aspirated 5L of ascites. Albumin: 1.5-> 2 Serum Ascites albumin gradient (SAAG): -0.5, <1.1: indicative of non-portal hypertension Hgb 8-> 10 r/o malignancy: s/p gatrectomy for premaligmant gatric polyps in 2004. Pt is cachectic. extensive FHx of CA including, thyroidCA, Pancreatic CA, breast CA Ascites Fluids cytology revealed no malignant cells. Peripheral blood cytology revealed no malignancy SAAG: -0.5, <1.1 indicative of non-portal hypertension and peritoneal cause of ascites such as sarcoidosis, peritoneal carcinomatosis, peritoneal mesothelioma CA 19-9: 238, CA 125 330 r/o [place] Tumor: h/o premalignant gastric polyps, ascites and elevated CA 125 Plan: Plan: -Hemeonc on board: hemachromatosis likely 2/2 multiple transfusion and IV iron for anemia -Receiving albumin daily for hypotension -GI on board : recommends dx laparoscopy for peritoneal, liver bx and to r/o ovarian CA -We will continue to follow -Protein supplement -Trend labs -f/u hemochromatocis DNA -Serial abd exam -Pain control DW Dr. Warren
[2017-10-09 08:16] LABS: ALBUMIN 1.8 g/dL (3.0-4.8); ALT/SGPT 130 U/L (7-56); AST/SGOT 106 U/L (14-36); BLOOD UREA NITROGEN 14 mg/dL (7-21); CALCIUM 7.2 mg/dL (8.4-10.5); GFR AFRICAN-AMERICAN > 60; GFR NON-AFRICAN AMERICAN > 60
[2017-10-09] MEDS: Enoxaparin 30 mg Syringe SC SCH ×2 (10:00→21:36)
[2017-10-09] MEDS: oxyCODONE 20 mg ER Tab (oxyCONTIN) PO SCH ×2 (10:01→21:37)
[2017-10-09] MEDS: Albumin Human 25% (12.5 gm/50 ml) IV SCH (10:24)
--- NOTE | 2017-10-09 11:57 | PN ---
DATE: SUBJECTIVE: The patient is 62 years old, seen and examined, lying in bed. She has generalized weakness. Eating fair. No nausea or vomiting. PHYSICAL EXAMINATION: VITAL SIGNS: She is afebrile, pulse 83, respiration 19, blood pressure 83/44. LUNGS: Bilateral fair airflow. No rhonchi or crackle. HEART: S1 and S2 audible. ABDOMEN: Soft, nontender. No rebound. No guarding. NEUROLOGICAL: The patient is awake and alert. She is cachectic and looked pale and malnourished. EXTREMITIES: Bilateral leg, +2 edema. LABORATORY EXAM: WBC is 5.9, hemoglobin 8.3, hematocrit 24.8, platelet of 120. Chemistry: Sodium 130, potassium 4, chloride 93, CO2 of 36, BUN 14, creatinine 0.5, blood sugar of 69, AST 106, ALT 130, alk phos is 243. ASSESSMENT: 1. Significant weight loss, etiology still unclear. Probably nutritional, history of gastric bypass. 2. Status post paracentesis and 4800 mL of the fluid was drained. 3. Hypoalbuminemia. 4. Anemia. 5. Left arm partial deep venous thrombosis. 6. Questionable hemochromatosis. Dr. Guo's input noted and appreciated. Her thought is that hemochromatosis could be secondary to multiple transfusions and iron infusions. However, after discussing with Dr. Alvarado, it was planned that the patient should have diagnostic laparoscopy done, for that surgical team has been involved and consulted to rule out any underlying malignancy since her CA19-9 and 125 are elevated. In the meantime, I will order a rectal suppository as needed for her constipation and I will increase her Duragesic patch to 25 every 72 hours. Out of bed to chair and it was explained to the patient it is very important to be ambulated because she has stage II sacral decubitus because of her malnutrition that might lead to osteomyelitis. Rad Onofre MD
[2017-10-10] MEDS: Pantoprazole 40 mg EC Tab PO SCH (06:16)
[2017-10-10] MEDS: Oxycodone/Acetaminophen 5/325 mg Tab PO PRN (06:16)
[2017-10-10 07:13] LABS: BASO # 0.01 K/mm3 (0.0-2.0); BASO % 0.2 % (0.0-3.0); EOS # 0.1 (0.0-0.7); EOS % 1.2 % (1.5-5.0); GRAN # 3.21 (1.4-6.5); GRAN % 63.9 % (50.0-68.0); HEMOGLOBIN 8.2 g/dL (12.0-16.0); LYMPH # 1.4 (1.2-3.4); LYMPH % 27.5 % (22.0-35.0); MEAN CELL VOLUME 94.3 fl (80.0-105.0); MEAN CORPUSCULAR HEMOGLOBIN 31.3 pg (25.0-35.0); MEAN CORPUSCULAR HGB CONC 33.2 g/dl (31.0-37.0); MEAN PLATELET VOLUME 10.5 fl (7.0-11.0); MONO # 0.4 (0.1-0.6); MONO % 7.2 % (1.0-6.0); RBC 2.62 10^6/uL (3.5-6.1); RED CELL DISTRIBUTION WIDTH 16.2 % (11.5-14.5)
--- NOTE | 2017-10-10 07:29 | CP.PCM.PN ---
Subjective - Date & Time of Evaluation Date of Evaluation: 10/10/17 Time of Evaluation: 07:27 - Subjective Subjective: Patient seen and examined at bedside. Per nursing no acute events occurred overnight. Denies any pain at this time. Patient tolerating diet. Patient denies any fevers, chills, headache or any other complaints. Objective - Vital Signs/Intake and Output Vital Signs (last 24 hours): Temp Pulse Resp BP Pulse Ox 98.6 F 74 18 93/60 L 95 10/10/17 00:00 10/10/17 06:00 10/10/17 00:00 10/10/17 00:00 10/09/17 20:30 Intake and Output: 10/10/17 10/10/17 06:59 18:59 Intake Total 480 Output Total 1200 Balance -720 - Medications Medications: Current Medications Albumin Human (Albumin Human 25% (12.5 Gm/50 Ml)) 12.5 gm IV DAILY [facility] Last Admin: 10/09/17 10:24 Dose: 12.5 gm Bisacodyl (Dulcolax) 10 mg RC DAILY [facility] Last Admin: 10/09/17 10:01 Dose: 10 mg Buspirone HCl (Buspar) 5 mg PO BID [facility] PRN Reason: Protocol Last Admin: 10/09/17 17:10 Dose: 5 mg Citalopram Hydrobromide (Celexa) 20 mg PO DAILY [facility] Last Admin: 10/09/17 10:01 Dose: 20 mg Enoxaparin Sodium (Lovenox) 30 mg SC Q12H [facility] PRN Reason: Protocol Last Admin: 10/09/17 21:36 Dose: 30 mg Fentanyl (Duragesic) 1 patch TD Q72H [facility] Last Admin: 10/09/17 10:00 Dose: 1 patch Gabapentin (Neurontin) 300 mg PO TID [facility] PRN Reason: Protocol Last Admin: 10/09/17 17:10 Dose: 300 mg Potassium Chloride/Dextrose (Potassium Chl 40 Meq In D5w) 1,000 mls @ 50 mls/ hr IV .Q20H [facility] Last Admin: 10/09/17 23:24 Dose: 50 mls/hr Oxycodone HCl (Oxycontin Extended Release Tab) 20 mg PO Q12 [facility] Last Admin: 10/09/17 21:37 Dose: 20 mg Oxycodone/Acetaminophen (Percocet 5/325 Mg Tab) 1 tab PO Q6H [facility] PRN Reason: Pain, moderate (4-7) Stop: 10/10/17 09:59 Last Admin: 10/10/17 06:16 Dose: 1 tab Pantoprazole Sodium (Protonix Ec Tab) 40 mg PO 0600 [facility] Last Admin: 10/10/17 06:16 Dose: 40 mg - Labs Labs: 10/10/17 07:00 10/09/17 07:00 PT 12.1 SECONDS (9.4-12.5) 10/04/17 20:29 INR 1.06 (0.93-1.08) 10/04/17 20:29 APTT 28.0 Seconds (25.1-36.5) 10/04/17 20:29 - Head Exam Head Exam: ATRAUMATIC, NORMAL INSPECTION, NORMOCEPHALIC - Eye Exam Eye Exam: EOMI, Normal appearance, PERRL Pupil Exam: NORMAL ACCOMODATION - ENT Exam ENT Exam: Mucous Membranes Moist - Respiratory Exam Respiratory Exam: Clear to Ausculation Bilateral, NORMAL BREATHING PATTERN - Cardiovascular Exam Cardiovascular Exam: REGULAR RHYTHM - GI/Abdominal Exam GI & Abdominal Exam: Soft, Normal Bowel Sounds - Extremities Exam Extremities Exam: Full ROM - Neurological Exam Neurological Exam: Alert, Awake, CN II-XII Intact Assessment and Plan - Assessment and Plan (Free Text) Assessment: DDX cirrhosis v hemachromatosis AST 630, ALT 300. Trending down. CT abd showed large amount of ascites. MRCP showed ascited and hypodense liver and spleen suggestive of hemachromatosis. s/p paracenthesis: aspirated 5L of ascites. Albumin: 1.5-> 2 Serum Ascites albumin gradient (SAAG): -0.5, <1.1: indicative of non-portal hypertension Hgb 8-> 10 r/o malignancy: s/p gatrectomy for premaligmant gatric polyps in 2004. Pt is cachectic. extensive FHx of CA including, thyroidCA, Pancreatic CA, breast CA Ascites Fluids cytology revealed no malignant cells. Peripheral blood cytology revealed no malignancy SAAG: -0.5, <1.1 indicative of non-portal hypertension and peritoneal cause of ascites such as sarcoidosis, peritoneal carcinomatosis, peritoneal mesothelioma CA 19-9: 238, CA 125 330 r/o [place] Tumor: h/o premalignant gastric polyps, ascites and elevated CA 125 Plan: -Hemeonc on board: hemachromatosis likely 2/2 multiple transfusion and IV iron for anemia -Receiving albumin daily for hypotension -GI on board : recommends dx laparoscopy for peritoneal, liver bx and to r/o ovarian CA -We will continue to follow -Protein supplement -Trend labs -f/u hemochromatocis DNA -Serial abd exam -Pain control -Possible O.R. tomorrow. Will monitor. STACEY Warren
[2017-10-10 07:40] LABS: ALBUMIN 1.9 g/dL (3.0-4.8); ALT/SGPT 150 U/L (7-56); AST/SGOT 150 U/L (14-36); BLOOD UREA NITROGEN 14 mg/dL (7-21); CALCIUM 7.1 mg/dL (8.4-10.5); GFR AFRICAN-AMERICAN > 60; GFR NON-AFRICAN AMERICAN > 60
[2017-10-10] MEDS: oxyCODONE 20 mg ER Tab (oxyCONTIN) PO SCH ×2 (09:26→21:12)
[2017-10-10] MEDS: Albumin Human 25% (12.5 gm/50 ml) IV SCH (09:26)
[2017-10-10] MEDS: Enoxaparin 30 mg Syringe SC SCH ×2 (09:28→21:13)
[2017-10-10 13:25] LABS: ALBUMIN (PEP) 1.4 g/dL (3.8-4.8); ALPHA-1-GLOBULIN (PEP) 0.3 g/dL (0.2-0.3)
--- NOTE | 2017-10-10 13:58 | CP.PCM.PN ---
Subjective - Date & Time of Evaluation Date of Evaluation: 10/10/17 Time of Evaluation: 10:25 - Subjective Subjective: GI Progress note. Dr. Alvarado Pt seen and examined at bedside. No acute events overnight. Denies any new complaints. Tolerating diet. Objective - Vital Signs/Intake and Output Vital Signs (last 24 hours): Temp Pulse Resp BP Pulse Ox 98.2 F 75 20 78/49 L 97 10/10/17 09:21 10/10/17 10:00 10/10/17 09:21 10/10/17 09:21 10/10/17 09:21 Intake and Output: 10/10/17 10/10/17 06:59 18:59 Intake Total 480 Output Total 1200 Balance -720 - Medications Medications: Current Medications Albumin Human (Albumin Human 25% (12.5 Gm/50 Ml)) 12.5 gm IV DAILY [facility] Last Admin: 10/10/17 09:26 Dose: 12.5 gm Bisacodyl (Dulcolax) 10 mg RC DAILY [facility] Last Admin: 10/10/17 09:27 Dose: Not Given Buspirone HCl (Buspar) 5 mg PO BID [facility] PRN Reason: Protocol Last Admin: 10/10/17 09:26 Dose: 5 mg Citalopram Hydrobromide (Celexa) 20 mg PO DAILY [facility] Last Admin: 10/10/17 09:26 Dose: 20 mg Enoxaparin Sodium (Lovenox) 30 mg SC Q12H [facility] PRN Reason: Protocol Last Admin: 10/10/17 09:28 Dose: 30 mg Fentanyl (Duragesic) 1 patch TD Q72H [facility] Last Admin: 10/09/17 10:00 Dose: 1 patch Gabapentin (Neurontin) 300 mg PO TID [facility] PRN Reason: Protocol Last Admin: 10/10/17 13:48 Dose: 300 mg Potassium Chloride/Dextrose (Potassium Chl 40 Meq In D5w) 1,000 mls @ 50 mls/ hr IV .Q20H [facility] Last Admin: 10/09/17 23:24 Dose: 50 mls/hr Oxycodone HCl (Oxycontin Extended Release Tab) 20 mg PO Q12 [facility] Last Admin: 10/10/17 09:26 Dose: 20 mg Pantoprazole Sodium (Protonix Ec Tab) 40 mg PO 0600 [facility] Last Admin: 10/10/17 06:16 Dose: 40 mg - Labs Labs: 10/10/17 07:00 10/10/17 07:00 PT 12.1 SECONDS (9.4-12.5) 10/04/17 20:29 INR 1.06 (0.93-1.08) 10/04/17 20:29 APTT 28.0 Seconds (25.1-36.5) 10/04/17 20:29 - Constitutional Appears: Non-toxic, No Acute Distress, Older Than Stated Age, Cachectic, Chronically Ill - Head Exam Head Exam: ATRAUMATIC, NORMAL INSPECTION, NORMOCEPHALIC - Eye Exam Eye Exam: EOMI - ENT Exam ENT Exam: Mucous Membranes Moist - Respiratory Exam Respiratory Exam: NORMAL BREATHING PATTERN. absent: Accessory Muscle Use - GI/Abdominal Exam GI & Abdominal Exam: Soft. absent: Distended, Firm, Guarding, Rigid, Tenderness - Neurological Exam Neurological Exam: Alert, Awake, Oriented x3 - Skin Skin Exam: Dry, Intact, Normal Color, Warm Assessment and Plan - Assessment and Plan (Free Text) Assessment: 62yo F with Anorexia, Cachexia. - Elevated liver enzymes - Elevated CA 19-9/CA 125. Transvaginal US and Transabdominal US with no clear visualization of ovaries - r/o Hemochromatosis - SAAG <1.1 concerning for neoplastic disease Plan: - F/u Surgery plans for Diagnostic Laparascopy. Recommend Liver bx to r/o hemochromatosis. - Continue current diet as tolerated - f/u Hematology workup - continue PPI - Trend LFTs Further recs as per Dr. Jenny Garrett PGY1
--- NOTE | 2017-10-10 15:53 | PN ---
DATE: SUBJECTIVE: The patient is 62 years old elderly female, seen and examined, lying in bed, seems to be comfortable, complaining of generalized aches and pain. Denies any nausea or vomiting. Does not have good appetite; however, she states she push herself to eat. PHYSICAL EXAMINATION: VITAL SIGNS: She is afebrile, pulse 75, respirations 20, blood pressure 78/49. LUNGS: Bilateral good airflow. No rhonchi or crackle. HEART: S1 and S2 audible. ABDOMEN: Soft. Nontender. No rebound. NEUROLOGIC: The patient is awake and alert, able to communicate. EXTREMITIES: Bilateral legs, +1 edema. LABORATORY DATA: WBC is 5, hemoglobin 8.2, hematocrit 24.7, and platelets of 64. Chemistry: Sodium 131, potassium 4.2, chloride 96, CO2 of 33. BUN 14, creatinine 0.5. Blood sugar of 62. AST 150, ALT 150, alk phos is 224. ASSESSMENT: 1. Significant weight loss, etiology still unclear, multiple, probably malnutrition, history of gastric bypass. 2. Status post paracentesis secondary to cirrhosis of liver. 3. Anemia. 4. Left arm deep venous thrombosis. 5. Stage II sacral decubitus. 6. Bilateral leg edema. PLAN: Surgical team saw the patient. We will arrange for diagnostic laparoscopy. There is question of questionable hemochromatosis. Patient also complained of constipation. We will start her on MiraLax. Since she is tolerating Duragesic patch, we will modify her analgesic. We will follow up this patient in a.m. Rad Onofre MD
[2017-10-10] MEDS: Potassium Chl 40mEq & D5W 1,000 ML IV SCH (21:44)
[2017-10-11] MEDS ORDERED: Oxycodone/Acetaminophen 5/325 mg Tab PO ONE (05:37)
[2017-10-11 06:30] LABS: HEMOGLOBIN 7.6 g/dL (12.0-16.0); MEAN CORPUSCULAR HEMOGLOBIN 31.8 pg (25.0-35.0); MEAN CORPUSCULAR HGB CONC 33.5 g/dl (31.0-37.0); MEAN PLATELET VOLUME 9.1 fl (7.0-11.0); RBC 2.39 10^6/uL (3.5-6.1); RED CELL DISTRIBUTION WIDTH 16.2 % (11.5-14.5); WHITE BLOOD COUNT 5.1 10^3/ul (4.5-11.0)
[2017-10-11 07:03] LABS: ALBUMIN 1.9 g/dL (3.0-4.8); ALT/SGPT 121 U/L (7-56); AST/SGOT 90 U/L (14-36); BLOOD UREA NITROGEN 14 mg/dL (7-21); CALCIUM 7.3 mg/dL (8.4-10.5); GFR AFRICAN-AMERICAN > 60; GFR NON-AFRICAN AMERICAN > 60
--- NOTE | 2017-10-11 07:56 | CP.PCM.PN ---
Subjective - Date & Time of Evaluation Date of Evaluation: 10/11/17 Time of Evaluation: 07:55 - Subjective Subjective: Patient seen and examined at bedside. Per nursing no acute events occurred overnight. Patient denies any fevers, chills, nausea, vomiting, changes in vision, abdominal pain, headaches, dizziness, or any other complaints. Objective - Vital Signs/Intake and Output Vital Signs (last 24 hours): Temp Pulse Resp BP Pulse Ox 99.3 F 82 18 85/44 L 95 10/10/17 18:00 10/11/17 06:00 10/10/17 18:00 10/10/17 18:00 10/10/17 18:00 Intake and Output: 10/11/17 10/11/17 06:59 18:59 Intake Total 900 Output Total 1200 Balance -300 - Medications Medications: Current Medications Albumin Human (Albumin Human 25% (12.5 Gm/50 Ml)) 12.5 gm IV DAILY [facility] Last Admin: 10/10/17 09:26 Dose: 12.5 gm Bisacodyl (Dulcolax) 10 mg RC DAILY [facility] Last Admin: 10/10/17 09:27 Dose: Not Given Buspirone HCl (Buspar) 5 mg PO BID [facility] PRN Reason: Protocol Last Admin: 10/10/17 17:10 Dose: 5 mg Citalopram Hydrobromide (Celexa) 20 mg PO DAILY [facility] Last Admin: 10/10/17 09:26 Dose: 20 mg Enoxaparin Sodium (Lovenox) 30 mg SC Q12H [facility] PRN Reason: Protocol Last Admin: 10/10/17 21:13 Dose: 30 mg Fentanyl (Duragesic) 1 patch TD Q72H [facility] Last Admin: 10/09/17 10:00 Dose: 1 patch Gabapentin (Neurontin) 300 mg PO TID [facility] PRN Reason: Protocol Last Admin: 10/10/17 17:10 Dose: 300 mg Potassium Chloride/Dextrose (Potassium Chl 40 Meq In D5w) 1,000 mls @ 50 mls/ hr IV .Q20H [facility] Last Admin: 10/10/17 21:44 Dose: 50 mls/hr Oxycodone HCl (Oxycontin Extended Release Tab) 20 mg PO Q12 [facility] Last Admin: 10/10/17 21:12 Dose: 20 mg Pantoprazole Sodium (Protonix Ec Tab) 40 mg PO 0600 [facility] Last Admin: 10/10/17 06:16 Dose: 40 mg - Labs Labs: 10/11/17 05:30 10/11/17 05:30 PT 12.1 SECONDS (9.4-12.5) 10/04/17 20:29 INR 1.06 (0.93-1.08) 10/04/17 20:29 APTT 28.0 Seconds (25.1-36.5) 10/04/17 20:29 - Head Exam Head Exam: ATRAUMATIC, NORMAL INSPECTION - Eye Exam Eye Exam: EOMI, Normal appearance Pupil Exam: NORMAL ACCOMODATION - ENT Exam ENT Exam: Mucous Membranes Moist - Respiratory Exam Respiratory Exam: Clear to Ausculation Bilateral - Cardiovascular Exam Cardiovascular Exam: REGULAR RHYTHM - GI/Abdominal Exam GI & Abdominal Exam: Normal Bowel Sounds - Extremities Exam Extremities Exam: Full ROM - Neurological Exam Neurological Exam: Alert, Awake - Psychiatric Exam Psychiatric exam: Normal Affect, Normal Mood - Skin Skin Exam: Dry Assessment and Plan - Assessment and Plan (Free Text) Assessment: 62yo F with Anorexia, Cachexia. - Elevated liver enzymes - Elevated CA 19-9/CA 125. Transvaginal US and Transabdominal US with no clear visualization of ovaries - r/o Hemochromatosis - SAAG <1.1 concerning for neoplastic disease Plan: -Hemeonc on board: hemachromatosis likely 2/2 multiple transfusion and IV iron for anemia -Receiving albumin daily for hypotension -GI on board : recommends dx laparoscopy for peritoneal, liver bx and to r/o ovarian CA -NPO for possible O.R. -Protein supplement -Trend labs -Serial abd exam -Pain control -Will continue to monitor DW Dr. Warren
[2017-10-11] MEDS: oxyCODONE 20 mg ER Tab (oxyCONTIN) PO SCH ×2 (09:29→22:10)
[2017-10-11] MEDS: Albumin Human 25% (12.5 gm/50 ml) IV SCH (11:44)
--- NOTE | 2017-10-11 14:01 | PN ---
DATE: SUBJECTIVE: The patient is 62-year-old, seen and examined, lying in bed, seems to be comfortable, complaint of generalized weakness. No nausea or vomiting. No diarrhea. PHYSICAL EXAMINATION: VITAL SIGNS: The patient is afebrile, pulse 80, respirations 17, blood pressure 95/59. LUNGS: Bilateral fair airflow. No rhonchi or crackle. HEART: S1 and S2 audible. ABDOMEN: Soft. No fluid thrill noticed. EXTREMITIES: Bilateral legs, +2 edema. LABORATORY DATA: WBC is 5.1, hemoglobin 7.6, hematocrit 22.7, and platelets 131. Chemistry: Sodium 132, potassium 4, chloride 94, CO2 33, BUN 14, creatinine 0.5. Blood sugar of 68. AST 90, ALT 121, alkaline phosphatase is 225. Albumin is 1.9. ASSESSMENT: 1. Symptomatic anemia. 2. Significant weight loss. 3. History of gastric bypass. 4. Deconditioning. 5. Chronic pain syndrome. 6. Gastritis. PLAN: I will discontinue albumin. Patient is status post paracentesis and had 4800 mL fluid removed. Patient discussed with Dr. Warren. Plan is to do diagnostic laparoscopy. Since her markers are high, transvaginal sono shows fibroid uterus with no evidence of malignancy on sonogram. No sebaceous ovarian cyst. Patient also needs colonoscopy later on, but that will be decided after we have diagnostic laparoscopy done. Rad Onofre MD
--- NOTE | 2017-10-11 17:24 | PN ---
DATE: 10/11/2017 SUBJECTIVE: The patient is lying in bed, getting PRBC transfusion. Currently, she denies any complaints. Feels comfortable. Awaiting laparoscopy tomorrow for a presumed occult malignancy diagnosis as none of the scans or MRCP have been very revealing. OBJECTIVE: VITAL SIGNS: Her vitals reveal that she is afebrile, pulse is 80, respiratory rate 17 and blood pressure 95/59. LUNGS: Bilateral fair air entry. No further rhonchi or crackles. HEART: S1, S2 heard. ABDOMEN: Positive bowel sounds, soft. No further ascites post-paracentesis. EXTREMITIES: There are still 2+ edema. LABORATORY DATA: Reveal a white count of 5.1, hemoglobin 7.6, hematocrit 22.7, and platelet count of 131. Chemistries within normal limits. Potassium is now normalized to 4. BUN and creatinine are 14 and 0.5. LFTs remain elevated, though they are trending downwards with AST of 90, ALT of 121 and alkaline phosphate of 225. Her tumor markers are elevated including CA-99 as well as CA-125. ASSESSMENT AND PLAN: Elderly female with known history of gastric bypass surgery, which was extensive over 30 years ago, subsequent iron deficiency and B12 deficiency for which she was following up with me years ago and received IV iron as well as B12 as an outpatient. Now, has developed severe cachexia as well as weight loss over 50 pounds in the last 6 months, multiple admissions for the above, also developed ascites, but no discernible masses are noted in the pancreas or the biliary duct including on MRCP. She is currently being worked up for occult malignancy. She is awaiting a laparoscopic exam tomorrow. Her hemoglobin is 7.7 with transfused to at least a 10 prior to attempt of surgery. The patient is agreeable. Thank you for the consult. We will follow. Madelin Guo MD
[2017-10-11 20:48] LABS: EOS % 0.1 % (1.5-5.0); GRAN # 5.91 (1.4-6.5); GRAN % 77.4 % (50.0-68.0); LYMPH # 0.9 (1.2-3.4); LYMPH % 12.3 % (22.0-35.0); MEAN CELL VOLUME 88.7 fl (80.0-105.0); MEAN CORPUSCULAR HEMOGLOBIN 30.4 pg (25.0-35.0); MEAN CORPUSCULAR HGB CONC 34.3 g/dl (31.0-37.0); MONO # 0.8 (0.1-0.6); MONO % 10.2 % (1.0-6.0); RBC 3.81 10^6/uL (3.5-6.1); RED CELL DISTRIBUTION WIDTH 17.3 % (11.5-14.5); WHITE BLOOD COUNT 7.6 10^3/ul (4.5-11.0)
[2017-10-11 20:50] LABS: HEMOGLOBIN 11.6 g/dL (12.0-16.0)
--- NOTE | 2017-10-12 02:10 | PN ---
DATE: 10/11/2017 SUBJECTIVE: This patient was seen and evaluated earlier today. Patient's hemoglobin appears to be dropped today to 7.6. GI consult was requested to evaluate. No obvious bleeding per rectum or melena. PHYSICAL EXAMINATION: VITAL SIGNS: Temperature is 99.3, blood pressure is 93/66. Past medical history of sarcoidosis, multiple sclerosis, admitted with abdominal pain, constipation. Patient has no obvious bleeding. IMPRESSION: This is a 62-year-old patient admitted following the increase in LFTs. Patient was anemic. Patient had last endoscopy done during the last admission. 1. Ascites. 2. Cirrhosis. 3. Rule out hemochromatosis. 4. The patient had a status post bariatric surgery, Billroth type I, status post EGD did not show any obvious ulceration or mass lesion. RECOMMENDATIONS: 1. Followup of the hemoglobin and hematocrit. 2. Advised regular medical follow up with Dr. Nathan and advised follow up in our office between 4 to 6 weeks' time. We will continue closely follow up with her care and suggest further management based on the clinical course. I did discuss with Dr. Onofre regarding the CAT scan already. Ami Alvarado MD
[2017-10-12] MEDS: Pantoprazole 40 mg EC Tab PO SCH (05:50)
[2017-10-12 07:04] LABS: HEMOGLOBIN 12.7 g/dL (12.0-16.0); MEAN CELL VOLUME 88.8 fl (80.0-105.0); MEAN CORPUSCULAR HEMOGLOBIN 30.3 pg (25.0-35.0); MEAN CORPUSCULAR HGB CONC 34.1 g/dl (31.0-37.0); MEAN PLATELET VOLUME 9.5 fl (7.0-11.0); RBC 4.19 10^6/uL (3.5-6.1); RED CELL DISTRIBUTION WIDTH 18.7 % (11.5-14.5); WHITE BLOOD COUNT 7.8 10^3/ul (4.5-11.0)
[2017-10-12 07:31] LABS: ALB/GLOB RATIO 1.1 (1.1-1.8); ALBUMIN 2.3 g/dL (3.0-4.8); ALT/SGPT 116 U/L (7-56); AST/SGOT 65 U/L (14-36); BLOOD UREA NITROGEN 15 mg/dL (7-21); CALCIUM 7.7 mg/dL (8.4-10.5); GFR AFRICAN-AMERICAN > 60; GFR NON-AFRICAN AMERICAN > 60
[2017-10-12] MEDS: oxyCODONE 20 mg ER Tab (oxyCONTIN) PO SCH (10:07)
--- NOTE | 2017-10-12 10:43 | CP.PCM.PN ---
Subjective - Date & Time of Evaluation Date of Evaluation: 10/12/17 Time of Evaluation: 10:41 - Subjective Subjective: Patient seen and examined at bedside. Per nursing no acute events occurred overnight. Patient reports wanting to eat. Patient denies any chest pain, shortness of breath, fevers, chills, dizziness, nausea, numbness, headache or any other complaints. Objective - Vital Signs/Intake and Output Vital Signs (last 24 hours): Temp Pulse Resp BP Pulse Ox 98.2 F 56 L 16 110/69 99 10/12/17 08:24 10/12/17 08:24 10/12/17 08:24 10/12/17 08:24 10/12/17 08:24 Intake and Output: 10/12/17 10/12/17 06:59 18:59 Intake Total 500 Output Total 300 Balance 200 - Medications Medications: Current Medications Bisacodyl (Dulcolax) 10 mg RC DAILY [facility] Last Admin: 10/12/17 10:07 Dose: Not Given Buspirone HCl (Buspar) 5 mg PO BID [facility] PRN Reason: Protocol Last Admin: 10/12/17 10:06 Dose: 5 mg Citalopram Hydrobromide (Celexa) 20 mg PO DAILY [facility] Last Admin: 10/12/17 10:06 Dose: 20 mg Enoxaparin Sodium (Lovenox) 30 mg SC Q12H [facility] PRN Reason: Protocol Last Admin: 10/10/17 21:13 Dose: 30 mg Fentanyl (Duragesic) 1 patch TD Q72H [facility] Last Admin: 10/12/17 10:07 Dose: 1 patch Gabapentin (Neurontin) 300 mg PO TID [facility] PRN Reason: Protocol Last Admin: 10/12/17 10:07 Dose: 300 mg Potassium Chloride/Dextrose (Potassium Chl 40 Meq In D5w) 1,000 mls @ 50 mls/ hr IV .Q20H [facility] Last Admin: 10/10/17 21:44 Dose: 50 mls/hr Oxycodone HCl (Oxycontin Extended Release Tab) 20 mg PO Q12 [facility] Last Admin: 10/12/17 10:07 Dose: 20 mg Pantoprazole Sodium (Protonix Ec Tab) 40 mg PO 0600 [facility] Last Admin: 10/12/17 05:50 Dose: Not Given - Labs Labs: 10/12/17 06:40 10/12/17 06:40 PT 12.1 SECONDS (9.4-12.5) 10/04/17 20:29 INR 1.06 (0.93-1.08) 10/04/17 20:29 APTT 28.0 Seconds (25.1-36.5) 10/04/17 20:29 - Head Exam Head Exam: ATRAUMATIC, NORMAL INSPECTION, NORMOCEPHALIC - Eye Exam Eye Exam: EOMI - ENT Exam ENT Exam: Mucous Membranes Moist - Neck Exam Neck Exam: Normal Inspection - Respiratory Exam Respiratory Exam: Clear to Ausculation Bilateral, NORMAL BREATHING PATTERN - Cardiovascular Exam Cardiovascular Exam: REGULAR RHYTHM - GI/Abdominal Exam GI & Abdominal Exam: Soft, Normal Bowel Sounds - Extremities Exam Extremities Exam: Full ROM, Normal Inspection - Neurological Exam Neurological Exam: Alert, Awake - Psychiatric Exam Psychiatric exam: Normal Affect, Normal Mood - Skin Skin Exam: Dry Assessment and Plan - Assessment and Plan (Free Text) Assessment: 62yo F with Anorexia, Cachexia. - Elevated liver enzymes - Elevated CA 19-9/CA 125. Transvaginal US and Transabdominal US with no clear visualization of ovaries - r/o Hemochromatosis - SAAG <1.1 concerning for neoplastic disease Plan: -Hemeonc on board: hemachromatosis likely 2/2 multiple transfusion and IV iron for anemia -Receiving albumin daily for hypotension -GI on board : Live biopsy once patient clinically improves. -Diet restarted (Regular). Will change back to NPO once date for O.R. is decided. -Protein supplement -Trend labs -Serial abd exam -Contine Pain control -Will continue to monitor Will discuss with Dr. Warren
[2017-10-12 10:59] LABS: URINE BILIRUBIN NEGATIVE (NEGATIVE); URINE BLOOD NEGATIVE (NEGATIVE); URINE GLUCOSE (UA) NEGATIVE (NEGATIVE); URINE LEUKOCYTE ESTERASE LARGE Leu/uL (NEGATIVE); URINE PROTEIN NEGATIVE mg/dL (<30 mg/dL); URINE UROBILINOGEN 0.2 E.U./dL (<1 E.U./dL)
[2017-10-12 11:14] LABS: URINE APPEARANCE CLEAR (CLEAR); URINE COLOR YELLOW (YELLOW)
[2017-10-12 11:19] LABS: URINE AMORPHOUS SEDIMENT FEW; URINE BACTERIA MANY (NEG); URINE RBC 0 - 2 /hpf (0-2); URINE WBC 25 - 30 /hpf (0-6)
[2017-10-12] MEDS ORDERED: Oxycodone/Acetaminophen 5/325 mg Tab PO PRN (12:05)
--- NOTE | 2017-10-12 17:34 | PN ---
DATE: SUBJECTIVE: The patient is a 62-year-old, seen and examined, lying in bed, complaining of weakness, complaining of back pain. She was scheduled for diagnostic laparoscopy, but has been canceled. Denies any nausea. Generalized weakness with generalized aches and pain. PHYSICAL EXAMINATION: VITAL SIGNS: She is afebrile, pulse 56, respirations 16, blood pressure 110/69. LUNGS: Bilateral fair airflow. No rhonchi or crackle. HEART: S1 and S2 audible. ABDOMEN: Soft and nontender. No rebound. No ascites appreciated. EXTREMITIES: Bilateral legs, no edema. She has stage II sacral decubitus. LABORATORY DATA: WBC 7.8, hemoglobin 12.7, hematocrit 37.2, and platelet of 99. Chemistry: Sodium 131, potassium 4.3, chloride 99, CO2 of 29, BUN 15, creatinine 0.6, and blood sugar of 65. AST 65, ALT 116, and alkaline phosphatase is 214. ASSESSMENT: 1. Significant weight loss with malnutrition and hypoalbuminemia. 2. Chronic anemia. 3. Cirrhotic ascites. 4. Questionable hemochromatosis. 5. History of gastric bypass. The patient had DNA mutation analysis for hemochromatosis that shows heterozygous for the H63D mutation. 6. Chronic pain syndrome. PLAN: I will increase her dose of Duragesic patch. We will continue on BuSpar and Celexa. Increase her Duragesic patch to 50 mcg and I will give her Percocet as needed and discontinue her MS Contin. We will talk to the surgical team. If there is no plan for diagnostic laparoscopy, we can make disposition plan to subacute rehab. Rad Onofre MD
--- NOTE | 2017-10-12 20:10 | CP.PCM.PN ---
Subjective - Date & Time of Evaluation Date of Evaluation: 10/12/17 Time of Evaluation: 12:20 - Subjective Subjective: GI Progress note. Dr. Alvarado Pt seen and examined at bedside. States that she feels more lethargic. Does report an appetite and would like to eat. Denies N/V/D. No Abd pain. No new complaints. Patient is s/p paracenthesis yesterday. S/p 2U PRBCs yesterday Objective - Vital Signs/Intake and Output Vital Signs (last 24 hours): Temp Pulse Resp BP Pulse Ox 98.2 F 98 H 16 110/69 99 10/12/17 08:24 10/12/17 18:00 10/12/17 08:24 10/12/17 08:24 10/12/17 08:24 Intake and Output: 10/12/17 10/13/17 18:59 06:59 Intake Total 0 Output Total 250 Balance -250 - Medications Medications: Current Medications Bisacodyl (Dulcolax) 10 mg RC DAILY [facility] Last Admin: 10/12/17 10:07 Dose: Not Given Buspirone HCl (Buspar) 5 mg PO BID [facility] PRN Reason: Protocol Last Admin: 10/12/17 17:19 Dose: 5 mg Citalopram Hydrobromide (Celexa) 20 mg PO DAILY [facility] Last Admin: 10/12/17 10:06 Dose: 20 mg Enoxaparin Sodium (Lovenox) 30 mg SC Q12H [facility] PRN Reason: Protocol Last Admin: 10/10/17 21:13 Dose: 30 mg Fentanyl (Duragesic) 1 patch TD Q72H [facility] Fentanyl (Duragesic) 1 patch TD Q72H [facility] Last Admin: 10/12/17 15:02 Dose: 1 patch Gabapentin (Neurontin) 300 mg PO TID [facility] PRN Reason: Protocol Last Admin: 10/12/17 17:19 Dose: 300 mg Home Med (Home Med) 0 unit PO 0530 [facility] Potassium Chloride/Dextrose (Potassium Chl 40 Meq In D5w) 1,000 mls @ 50 mls/ hr IV .Q20H [facility] Last Admin: 10/10/17 21:44 Dose: 50 mls/hr Loratadine (Claritin) 10 mg PO DAILY [facility] PRN Reason: Allergy symptoms Last Admin: 10/12/17 17:25 Dose: 10 mg Oxycodone/Acetaminophen (Percocet 5/325 Mg Tab) 1 tab PO Q6H [facility] PRN Reason: BREAKTHROUGH PAIN Stop: 10/15/17 12:38 Pantoprazole Sodium (Protonix Ec Tab) 40 mg PO 0600 [facility] Last Admin: 10/12/17 05:50 Dose: Not Given - Labs Labs: 10/12/17 06:40 10/12/17 06:40 PT 12.1 SECONDS (9.4-12.5) 10/04/17 20:29 INR 1.06 (0.93-1.08) 10/04/17 20:29 APTT 28.0 Seconds (25.1-36.5) 10/04/17 20:29 - Constitutional Appears: No Acute Distress, Cachectic, Chronically Ill - Head Exam Head Exam: ATRAUMATIC, NORMAL INSPECTION, NORMOCEPHALIC - Eye Exam Eye Exam: EOMI, Normal appearance. absent: Scleral icterus - ENT Exam ENT Exam: Mucous Membranes Moist - Respiratory Exam Respiratory Exam: NORMAL BREATHING PATTERN. absent: Accessory Muscle Use, Respiratory Distress - Cardiovascular Exam Cardiovascular Exam: RRR. absent: JVD - GI/Abdominal Exam GI & Abdominal Exam: Soft. absent: Distended, Firm, Guarding, Rigid, Tenderness , Rebound - Extremities Exam Extremities Exam: Normal Inspection. absent: Calf Tenderness - Neurological Exam Neurological Exam: Alert, Awake, Oriented x3 - Skin Skin Exam: Dry, Intact, Normal Color, Warm Assessment and Plan - Assessment and Plan (Free Text) Assessment: 62yo F with elevated LFTs, Anemia and cachexia - SAAG <1.1 concerning for neoplastic process - Elevated CA 19-9/CA 125 Plan: - f/u Surgery plans for diagnostic lap - f/u hematology workup - trend LFTs - Diet as tolerated - monitor H/H Further recs as per Dr. Jenny Garrett PGY1
[2017-10-12] MEDS: Oxycodone/Acetaminophen 5/325 mg Tab PO PRN (21:32)
[2017-10-13] MEDS: Potassium Chl 40mEq & D5W 1,000 ML IV SCH (01:04)
[2017-10-13] MEDS ORDERED: Home Med 1 UNIT PO SCH (05:30)
[2017-10-13] MEDS: ADERALL PO SCH (06:02)
[2017-10-13] MEDS: Pantoprazole 40 mg EC Tab PO SCH (06:03)
--- NOTE | 2017-10-13 07:19 | CP.PCM.PN ---
Subjective - Date & Time of Evaluation Date of Evaluation: 10/13/17 Time of Evaluation: 07:17 - Subjective Subjective: Patient seen and examined at bedside. Per nursing no acute events occurred overnight . The patient reports feeling the same as yesterday. The patient denies any fevers, chills, nausea, vomiting, headaches, dizziness, or any other complaints. Objective - Vital Signs/Intake and Output Vital Signs (last 24 hours): Temp Pulse Resp BP Pulse Ox 98.5 F 63 18 99/71 L 95 10/13/17 00:00 10/13/17 06:00 10/13/17 00:00 10/13/17 00:00 10/13/17 00:00 Intake and Output: 10/13/17 10/13/17 06:59 18:59 Intake Total 360 Output Total 400 Balance -40 - Medications Medications: Current Medications Bisacodyl (Dulcolax) 10 mg RC DAILY [facility] Last Admin: 10/12/17 10:07 Dose: Not Given Buspirone HCl (Buspar) 5 mg PO BID [facility] PRN Reason: Protocol Last Admin: 10/12/17 17:19 Dose: 5 mg Citalopram Hydrobromide (Celexa) 20 mg PO DAILY [facility] Last Admin: 10/12/17 10:06 Dose: 20 mg Enoxaparin Sodium (Lovenox) 30 mg SC Q12H [facility] PRN Reason: Protocol Last Admin: 10/10/17 21:13 Dose: 30 mg Fentanyl (Duragesic) 1 patch TD Q72H [facility] Fentanyl (Duragesic) 1 patch TD Q72H [facility] Last Admin: 10/12/17 15:02 Dose: 1 patch Gabapentin (Neurontin) 300 mg PO TID [facility] PRN Reason: Protocol Last Admin: 10/12/17 17:19 Dose: 300 mg Home Med (Home Med) 0 unit PO 0530 [facility] Last Admin: 10/13/17 06:02 Dose: 1 unit Potassium Chloride/Dextrose (Potassium Chl 40 Meq In D5w) 1,000 mls @ 50 mls/ hr IV .Q20H [facility] Last Admin: 10/13/17 01:04 Dose: 50 mls/hr Loratadine (Claritin) 10 mg PO DAILY [facility] PRN Reason: Allergy symptoms Last Admin: 10/12/17 17:25 Dose: 10 mg Oxycodone/Acetaminophen (Percocet 5/325 Mg Tab) 1 tab PO Q6H [facility] PRN Reason: BREAKTHROUGH PAIN Stop: 10/15/17 12:38 Last Admin: 10/12/17 21:32 Dose: 1 tab Pantoprazole Sodium (Protonix Ec Tab) 40 mg PO 0600 [facility] Last Admin: 10/13/17 06:03 Dose: 40 mg - Labs Labs: 10/12/17 06:40 10/12/17 06:40 PT 12.1 SECONDS (9.4-12.5) 10/04/17 20:29 INR 1.06 (0.93-1.08) 10/04/17 20:29 APTT 28.0 Seconds (25.1-36.5) 10/04/17 20:29 - Head Exam Head Exam: ATRAUMATIC, NORMAL INSPECTION, NORMOCEPHALIC - Eye Exam Eye Exam: EOMI, Normal appearance - ENT Exam ENT Exam: Mucous Membranes Moist - Respiratory Exam Respiratory Exam: Clear to Ausculation Bilateral, NORMAL BREATHING PATTERN - Cardiovascular Exam Cardiovascular Exam: REGULAR RHYTHM - GI/Abdominal Exam GI & Abdominal Exam: Soft, Normal Bowel Sounds - Neurological Exam Neurological Exam: Alert, Awake - Psychiatric Exam Psychiatric exam: Normal Affect, Normal Mood - Skin Skin Exam: Dry Assessment and Plan - Assessment and Plan (Free Text) Assessment: 62yo F with Anorexia, Cachexia. - Elevated liver enzymes - Elevated CA 19-9/CA 125. Transvaginal US and Transabdominal US with no clear visualization of ovaries - r/o Hemochromatosis - SAAG <1.1 concerning for neoplastic disease Plan: -Hemeonc on board: hemachromatosis likely 2/2 multiple transfusion and IV iron for anemia -Receiving albumin daily for hypotension -GI on board : Live biopsy once patient clinically improves. -Continue regular diet. -Protein supplement -Trend labs -Serial abd exam -Contine Pain control -Will continue to monitor Will discuss with Dr. Warren
[2017-10-13] MEDS: Oxycodone/Acetaminophen 5/325 mg Tab PO PRN (11:33)
[2017-10-13 12:32] LABS: HEMOGLOBIN 12.5 g/dL (12.0-16.0); MEAN CELL VOLUME 90.3 fl (80.0-105.0); MEAN CORPUSCULAR HGB CONC 34.3 g/dl (31.0-37.0); MEAN PLATELET VOLUME 9.8 fl (7.0-11.0); RBC 4.03 10^6/uL (3.5-6.1); WHITE BLOOD COUNT 7.9 10^3/ul (4.5-11.0)
[2017-10-13 12:42] LABS: ALBUMIN 2.3 g/dL (3.0-4.8); ALT/SGPT 96 U/L (7-56); AST/SGOT 62 U/L (14-36); BLOOD UREA NITROGEN 17 mg/dL (7-21); CALCIUM 7.7 mg/dL (8.4-10.5); GFR AFRICAN-AMERICAN > 60; GFR NON-AFRICAN AMERICAN > 60
[2017-10-13] MEDS ORDERED: Sod Polystyrene Sulf 15 gm/60 ml Susp PO ONE (15:31)
[2017-10-13] MEDS: Aztreonam 1 Gm in NS 100mL 100 ML IVPB SCH (21:38)
[2017-10-14] MEDS: Oxycodone/Acetaminophen 5/325 mg Tab PO PRN ×2 (00:14→06:23)
--- NOTE | 2017-10-14 01:20 | CON ---
DATE: 10/13/2017 LOCATION: The patient is seen earlier this morning in room 369, bed 1. CHIEF COMPLAINT: Weakness times several weeks. HISTORY OF PRESENT ILLNESS: This is a 62-year-old female with past medical history of multiple sclerosis, sarcoidosis, pancreatitis, E. coli urinary tract infection and a gastric bypass and left ureteral stent, history of iron deficiency, B12 deficiency and hypertension in addition to the sarcoidosis, who was admitted with dehydration and hypokalemia, elevated LFTs. Infectious Disease consultation requested. Review of systems reveals the patient is very weak. She has not had any fevers and she does have occasional chills. She has mild shortness of breath. No chest pain. No abdominal pain, diarrhea or constipation. REVIEW OF SYSTEMS: A 12-point review of systems is performed. PAST MEDICAL HISTORY: Significant for hypertension, multiple sclerosis, sarcoidosis, pancreatitis and E. coli urinary tract infection, iron deficiency, B12 deficiency. PAST SURGICAL HISTORY: Significant for left ureteral stent, gastric bypass. ALLERGIES: THE PATIENT IS ALLERGIC TO BLACK PEPPER, CODEINE, PENICILLIN, SULFA. MEDICATIONS AT HOME: Reviewed and include Celexa, BuSpar, Pepcid, Lasix, gabapentin, pantoprazole and Zofran. PHYSICAL EXAMINATION: GENERAL: The patient is in bed. VITAL SIGNS: Temperature of 98 and blood pressure is 97/61, respiratory rate of 20, heart rate of 96. HEENT: Examination of HEENT is unremarkable. NECK: Supple. LUNGS: Have decreased breath sounds. HEART: Normal S1 and S2. ABDOMEN: Soft, nontender. LABORATORY DATA: Laboratory examination reveals a white count of 5.9, hemoglobin of 8 and platelets of 120. Chemistries revealed the patient's BUN of 17, creatinine of 0.5. The LFTs are elevated including alk phos elevation. The urinalysis reveals 25-30 wbc's and many bacteria. ASSESSMENT AND PLAN: A 62-year-old female with hypertension, multiple sclerosis, sarcoidosis, pancreatitis, history of Escherichia coli urinary tract infection, iron deficiency, B12 deficiency, left ureteral stent and the gastric bypass, who has multiple allergies including penicillin and sulfa and codeine and who was found to be cachectic with a body mass index of 15 and has now significant weight loss, no obvious source. 1. Gram-negative rosario urinary tract infection with one who has penicillin allergy. We will treat the patient with aztreonam 1 g every 8. The patient has had an MRCP and has had CAT scan of the abdomen on 09/12/2017, approximately a month ago, which showed severe ascites. Workup is in progress. We will follow closely with you. Overall prognosis is quite poor for this chronically ill cachectic patient with body mass index of only 15. James Latif MD
[2017-10-14] MEDS: Pantoprazole 40 mg EC Tab PO SCH (05:36)
[2017-10-14] MEDS: ADERALL PO SCH (05:36)
[2017-10-14] MEDS: Aztreonam 1 Gm in NS 100mL 100 ML IVPB SCH ×3 (06:20→21:02)
--- NOTE | 2017-10-14 06:47 | PN ---
DATE: SUBJECTIVE: The patient is a 62-year-old, seen and examined. She complained of generalized aches and pains, better than before, feeling relatively more pain free since on Duragesic patch. PHYSICAL EXAMINATION VITAL SIGNS: She is afebrile, pulse 77, respirations 18, blood pressure 197/61. LUNGS: Bilateral fair airflow. No rhonchi or crackle. HEART: S1 and S2 audible. ABDOMEN: Soft. No fluid thrills. EXTREMITIES: Bilateral legs, no edema. LABORATORY DATA: WBC is 7.9, hemoglobin 12, hematocrit 36, platelet 113. Chemistry: Sodium 131, potassium 5.3, chloride 97, CO2 of 29, BUN 17, creatinine 0.5, blood sugar of 93. Her AST is 62, ALT 96, alkaline phosphatase is 196. ASSESSMENT: 1. Significant weight loss. 2. History of gastric bypass. 3. Improving liver function tests, etiology still unclear. 4. History of multiple sclerosis and sarcoidosis. 5. Hypoalbuminemia. 6. Chronic anemia. 7. Heterozygous gene positive for hemochromatosis. PLAN: We will discontinue telemetry. She seems to be stable from Cardiology point of view. We will continue her on usual medication. She is on 50 mcg of Duragesic patch today, and she is on DVT prophylaxis. I will discontinue her fluid since her oral intake is better now. Rad Onofre MD
--- NOTE | 2017-10-14 07:45 | CP.PCM.PN ---
Subjective - Date & Time of Evaluation Date of Evaluation: 10/14/17 Time of Evaluation: 07:43 - Subjective Subjective: Patient seen and examined at bedside. Per nursing no acute events occurred overnight. The patient does report to being on edge today. She denies any chest pain, nausea, vomiting, fevers, chills, changes in vision, dizziness, or any other complaints. Objective - Vital Signs/Intake and Output Vital Signs (last 24 hours): Temp Pulse Resp BP Pulse Ox 98.2 F 96 H 18 94/63 L 95 10/13/17 16:00 10/13/17 16:00 10/13/17 16:00 10/13/17 16:00 10/13/17 16:00 Intake and Output: 10/14/17 10/14/17 06:59 18:59 Intake Total 300 Output Total 100 Balance 200 - Medications Medications: Current Medications Bisacodyl (Dulcolax) 10 mg RC DAILY [facility] Last Admin: 10/13/17 09:23 Dose: Not Given Buspirone HCl (Buspar) 5 mg PO BID [facility] PRN Reason: Protocol Last Admin: 10/13/17 17:11 Dose: 5 mg Carbamide Peroxide (Debrox Ear Drops) 1 ml AU BID [facility] Stop: 10/18/17 18:46 Last Admin: 10/13/17 19:10 Dose: 5 drop Citalopram Hydrobromide (Celexa) 20 mg PO DAILY [facility] Last Admin: 10/13/17 09:19 Dose: 20 mg Enoxaparin Sodium (Lovenox) 30 mg SC Q12H [facility] PRN Reason: Protocol Last Admin: 10/10/17 21:13 Dose: 30 mg Fentanyl (Duragesic) 1 patch TD Q72H [facility] Fentanyl (Duragesic) 1 patch TD Q72H [facility] Last Admin: 10/12/17 15:02 Dose: 1 patch Gabapentin (Neurontin) 300 mg PO TID [facility] PRN Reason: Protocol Last Admin: 10/13/17 17:11 Dose: 300 mg Home Med (Home Med) 0 unit PO 0530 [facility] Last Admin: 10/14/17 05:36 Dose: 1 unit Aztreonam (Azactam 1 Gm) 100 mls @ 100 mls/hr IVPB Q8 [facility] PRN Reason: Protocol Stop: 10/22/17 22:01 Last Admin: 10/14/17 06:20 Dose: 100 mls/hr Loratadine (Claritin) 10 mg PO DAILY PRN PRN Reason: Allergy symptoms Last Admin: 10/13/17 15:56 Dose: 10 mg Oxycodone/Acetaminophen (Percocet 5/325 Mg Tab) 1 tab PO Q6H PRN PRN Reason: BREAKTHROUGH PAIN Stop: 10/15/17 12:38 Last Admin: 10/14/17 06:23 Dose: 1 tab Pantoprazole Sodium (Protonix Ec Tab) 40 mg PO 0600 [facility] Last Admin: 10/14/17 05:36 Dose: 40 mg - Labs Labs: 10/13/17 12:25 10/13/17 12:25 PT 12.1 SECONDS (9.4-12.5) 10/04/17 20:29 INR 1.06 (0.93-1.08) 10/04/17 20:29 APTT 28.0 Seconds (25.1-36.5) 10/04/17 20:29 - Head Exam Head Exam: ATRAUMATIC, NORMAL INSPECTION, NORMOCEPHALIC - Eye Exam Eye Exam: EOMI - ENT Exam ENT Exam: Mucous Membranes Moist - Respiratory Exam Respiratory Exam: Clear to Ausculation Bilateral, NORMAL BREATHING PATTERN - Cardiovascular Exam Cardiovascular Exam: REGULAR RHYTHM, +S1, +S2 - GI/Abdominal Exam GI & Abdominal Exam: Soft, Normal Bowel Sounds - Back Exam Back Exam: NORMAL INSPECTION - Neurological Exam Neurological Exam: Alert, Awake - Psychiatric Exam Psychiatric exam: Normal Affect, Normal Mood - Skin Skin Exam: Dry, Normal Color Assessment and Plan - Assessment and Plan (Free Text) Assessment: 62yo F with Anorexia, Cachexia. - Elevated liver enzymes - Elevated CA 19-9/CA 125. Transvaginal US and Transabdominal US with no clear visualization of ovaries - r/o Hemochromatosis - SAAG <1.1 concerning for neoplastic disease Plan: -Hemeonc on board: hemachromatosis likely 2/2 multiple transfusion and IV iron for anemia -Receiving albumin daily for hypotension -GI on board : Live biopsy once patient clinically improves. -Continue regular diet. -Protein supplement -Trend labs -Serial abd exam -Contine Pain control -Will continue to monitor Will discuss with Dr. Warren
--- NOTE | 2017-10-14 14:06 | PN ---
DATE: SUBJECTIVE: The patient is a 62 years old, seen and examined, lying in bed. She states she feels better, eating better, bilateral leg swelling has improved. PHYSICAL EXAMINATION VITAL SIGNS: She is afebrile, pulse 73, respirations 18, blood pressure 96/64. LUNGS: Bilateral good airflow. No rhonchi or crackle. HEART: S1 and S2 audible. ABDOMEN: Soft. No fluid thrill. EXTREMITIES: Bilateral leg, no edema. LABORATORY DATA: WBC 7.9, hemoglobin 12.5, hematocrit 36.4, platelets are 113. Chemistry: Sodium 131, potassium 5.3, chloride 97, CO2 29, BUN 17, creatinine 0.5. Blood sugar of 93. She has urine culture positive for E. coli. ESBL negative, sensitive to Cipro. ASSESSMENT: 1. Escherichia coli urinary tract infection. 2. Hypoalbuminemia. 3. Cirrhosis of liver. 4. Cirrhotic ascites, status post paracentesis, 4800 mL fluid removed. 5. History of gastric bypass. 6. Positive tumor markers including CA-99 and CA-125. PLAN: We will restart her on Lovenox. She is scheduled for diagnostic laparoscopy on Tuesday. For E. coli UTI, she is on aztreonam, then we switched to p.o. We will also adjust her pain medication and we will make discharge plan after diagnostic laparoscopy. Rad Onofre MD
[2017-10-14 15:47] LABS: HEMOGLOBIN 11.3 g/dL (12.0-16.0); MEAN CELL VOLUME 90.9 fl (80.0-105.0); MEAN CORPUSCULAR HEMOGLOBIN 31.1 pg (25.0-35.0); MEAN CORPUSCULAR HGB CONC 34.2 g/dl (31.0-37.0); MEAN PLATELET VOLUME 10.4 fl (7.0-11.0); RBC 3.63 10^6/uL (3.5-6.1); RED CELL DISTRIBUTION WIDTH 17.9 % (11.5-14.5); WHITE BLOOD COUNT 8.2 10^3/ul (4.5-11.0)
[2017-10-14 16:12] LABS: INR 1.37 (0.93-1.08); PARTIAL THROMBOPLASTIN TIME 41.1 Seconds (25.1-36.5); PROTHROMBIN TIME 15.7 SECONDS (9.4-12.5)
[2017-10-14 16:16] LABS: ALBUMIN 2.3 g/dL (3.0-4.8); ALT/SGPT 88 U/L (7-56); AST/SGOT 39 U/L (14-36); BLOOD UREA NITROGEN 20 mg/dL (7-21); CALCIUM 7.5 mg/dL (8.4-10.5); GFR AFRICAN-AMERICAN > 60; GFR NON-AFRICAN AMERICAN > 60
--- NOTE | 2017-10-14 19:50 | CP.PCM.PN ---
Subjective - Date & Time of Evaluation Date of Evaluation: 10/14/17 Time of Evaluation: 11:25 - Subjective Subjective: Comfortable, no fevers, not in distress, no dysuria currently. Objective - Vital Signs/Intake and Output Vital Signs (last 24 hours): Temp Pulse Resp BP Pulse Ox 98.2 F 96 H 18 92/64 L 98 10/14/17 16:00 10/14/17 16:00 10/14/17 16:00 10/14/17 16:00 10/14/17 16:00 - Medications Medications: Current Medications Bisacodyl (Dulcolax) 10 mg RC DAILY [facility] Last Admin: 10/14/17 09:13 Dose: Not Given Buspirone HCl (Buspar) 5 mg PO BID [facility] PRN Reason: Protocol Last Admin: 10/14/17 17:38 Dose: 5 mg Carbamide Peroxide (Debrox Ear Drops) 1 ml AU BID [facility] Stop: 10/18/17 18:46 Last Admin: 10/14/17 17:38 Dose: 5 drop Citalopram Hydrobromide (Celexa) 20 mg PO DAILY [facility] Last Admin: 10/14/17 09:12 Dose: 20 mg Enoxaparin Sodium (Lovenox) 30 mg SC Q12H [facility] PRN Reason: Protocol Last Admin: 10/10/17 21:13 Dose: 30 mg Fentanyl (Duragesic) 1 patch TD Q72H [facility] Fentanyl (Duragesic) 1 patch TD Q72H [facility] Last Admin: 10/12/17 15:02 Dose: 1 patch Gabapentin (Neurontin) 300 mg PO TID [facility] PRN Reason: Protocol Last Admin: 10/14/17 17:38 Dose: 300 mg Home Med (Home Med) 0 unit PO 0530 [facility] Last Admin: 10/14/17 05:36 Dose: 1 unit Aztreonam (Azactam 1 Gm) 100 mls @ 100 mls/hr IVPB Q8 [facility] PRN Reason: Protocol Stop: 10/22/17 22:01 Last Admin: 10/14/17 14:15 Dose: 100 mls/hr Loratadine (Claritin) 10 mg PO DAILY PRN PRN Reason: Allergy symptoms Last Admin: 10/14/17 15:49 Dose: 10 mg Oxycodone/Acetaminophen (Percocet 5/325 Mg Tab) 1 tab PO Q6H PRN PRN Reason: BREAKTHROUGH PAIN Stop: 10/15/17 12:38 Last Admin: 10/14/17 06:23 Dose: 1 tab Pantoprazole Sodium (Protonix Ec Tab) 40 mg PO 0600 [facility] Last Admin: 10/14/17 05:36 Dose: 40 mg - Labs Labs: 10/14/17 15:44 10/14/17 15:44 PT 15.7 SECONDS (9.4-12.5) H 10/14/17 15:44 INR 1.37 (0.93-1.08) H 10/14/17 15:44 APTT 41.1 Seconds (25.1-36.5) H 10/14/17 15:44 - Constitutional Appears: Non-toxic, Chronically Ill - Head Exam Head Exam: NORMAL INSPECTION - Respiratory Exam Respiratory Exam: Decreased Breath Sounds - Cardiovascular Exam Cardiovascular Exam: +S1, +S2 - GI/Abdominal Exam GI & Abdominal Exam: Soft. absent: Tenderness Assessment and Plan - Assessment and Plan (Free Text) Plan: Assessment E. coli UTI history of bilateral lower extremity cellulitis transamintis, etiology to be determined history of bilateral lower extremity skin and skin structure infection with MRSA and Klebsiella chronic anemia HTN multiple sclerosis sarcoidosis history of pancreatitis S/P left ureteral stent Plan continue Aztreonam - should complete 5-7 days of therapy
[2017-10-14] MEDS: Enoxaparin 30 mg Syringe SC SCH (21:03)
[2017-10-15] MEDS: Aztreonam 1 Gm in NS 100mL 100 ML IVPB SCH ×3 (05:21→21:38)
[2017-10-15] MEDS: ADERALL PO SCH (05:22)
[2017-10-15] MEDS: Oxycodone/Acetaminophen 5/325 mg Tab PO PRN (05:22)
[2017-10-15] MEDS: Pantoprazole 40 mg EC Tab PO SCH (07:09)
[2017-10-15] MEDS: Enoxaparin 30 mg Syringe SC SCH ×2 (09:46→21:37)
--- NOTE | 2017-10-15 13:39 | CP.PCM.PN ---
Subjective - Date & Time of Evaluation Date of Evaluation: 10/15/17 Time of Evaluation: 07:00 - Subjective Subjective: Surgery progress note. Dr. Warren Pt seen and examined at bedside this morning. No acute events overnight. No new complaints. No N/V/D. No F/C. No abd pain. Objective - Vital Signs/Intake and Output Vital Signs (last 24 hours): Temp Pulse Resp BP Pulse Ox 98.4 F 80 20 94/68 L 97 10/15/17 07:49 10/15/17 07:49 10/15/17 07:49 10/15/17 07:49 10/15/17 07:49 Intake and Output: 10/15/17 10/15/17 06:59 18:59 Intake Total 360 Output Total 200 Balance 160 - Medications Medications: Current Medications Bisacodyl (Dulcolax) 10 mg RC DAILY [facility] Last Admin: 10/15/17 09:41 Dose: 10 mg Buspirone HCl (Buspar) 5 mg PO BID [facility] PRN Reason: Protocol Last Admin: 10/15/17 09:41 Dose: 5 mg Carbamide Peroxide (Debrox Ear Drops) 1 ml AU BID [facility] Stop: 10/18/17 18:46 Last Admin: 10/15/17 09:41 Dose: 5 drop Citalopram Hydrobromide (Celexa) 20 mg PO DAILY [facility] Last Admin: 10/15/17 09:41 Dose: 20 mg Enoxaparin Sodium (Lovenox) 30 mg SC Q12H [facility] PRN Reason: Protocol Last Admin: 10/15/17 09:46 Dose: 30 mg Fentanyl (Duragesic) 1 patch TD Q72H [facility] Last Admin: 10/15/17 09:44 Dose: 1 patch Gabapentin (Neurontin) 300 mg PO TID [facility] PRN Reason: Protocol Last Admin: 10/15/17 09:41 Dose: 300 mg Home Med (Home Med) 0 unit PO 0530 [facility] Last Admin: 10/15/17 05:22 Dose: 1 unit Aztreonam (Azactam 1 Gm) 100 mls @ 100 mls/hr IVPB Q8 [facility] PRN Reason: Protocol Stop: 10/22/17 22:01 Last Admin: 10/15/17 05:21 Dose: 100 mls/hr Loratadine (Claritin) 10 mg PO DAILY [facility]N PRN Reason: Allergy symptoms Last Admin: 10/14/17 15:49 Dose: 10 mg Pantoprazole Sodium (Protonix Ec Tab) 40 mg PO 0600 [facility] Last Admin: 10/15/17 07:09 Dose: 40 mg - Labs Labs: 10/14/17 15:44 10/14/17 15:44 PT 15.7 SECONDS (9.4-12.5) H 10/14/17 15:44 INR 1.37 (0.93-1.08) H 10/14/17 15:44 APTT 41.1 Seconds (25.1-36.5) H 10/14/17 15:44 - Constitutional Appears: Non-toxic, No Acute Distress, Cachectic, Chronically Ill - Head Exam Head Exam: ATRAUMATIC, NORMAL INSPECTION, NORMOCEPHALIC - Eye Exam Eye Exam: EOMI, Normal appearance - ENT Exam ENT Exam: Mucous Membranes Moist - Respiratory Exam Respiratory Exam: NORMAL BREATHING PATTERN. absent: Accessory Muscle Use, Respiratory Distress - Cardiovascular Exam Cardiovascular Exam: absent: JVD - GI/Abdominal Exam GI & Abdominal Exam: Soft. absent: Distended, Guarding, Rigid, Tenderness, Rebound - Extremities Exam Extremities Exam: Normal Inspection. absent: Calf Tenderness - Neurological Exam Neurological Exam: Alert, Awake, Oriented x3 - Psychiatric Exam Psychiatric exam: Normal Affect, Normal Mood - Skin Skin Exam: Dry, Intact, Normal Color, Warm Assessment and Plan - Assessment and Plan (Free Text) Assessment: 62yo w Anorexia, cachexia. Elevated CA 19-9/CA 125. SAAG <1.1 concerning for neoplastic disease Plan: - Continue current treatment - continue diet. NPO past mn Tuesday for possible OR Tuesday for dx lap. - Supplements to increase nutritional status Further recs as per Dr. Briana Garrett PGY1 surgery pager: [phone]
[2017-10-15] MEDS ORDERED: Dextrose 50% SYRINGE Inj (50 ml) ONE ×2 (18:17→18:22)
--- NOTE | 2017-10-15 18:34 | PCM.RRT ---
<Alvin Borges - Last Filed: 10/15/17 18:39> FLIGHT SERVICE SPECIALIST Nurse Assessment - Situation Date: 10/15/17 Time FLIGHT SERVICE SPECIALIST was called: 18:13 FLIGHT SERVICE SPECIALIST Called By: RN - Stat Labs Ordered FLIGHT SERVICE SPECIALIST Stat Labs Ordered: CBC I.Reason for FLIGHT SERVICE SPECIALIST - A) Acute Change in Patient: (Select all that apply): Acute change in mental status - Neurological Status (Select all that apply): Responsive, Lethargic, Weakness - Constitutional Appears: Cachectic - Head Head Exam: ATRAUMATIC, NORMAL INSPECTION - Eyes Eye Exam: Normal appearance - Respiratory Exam Respiratory Exam: Clear to Ausculation Bilateral. absent: Accessory Muscle Use - Cardiovascular Exam Cardiovascular Exam: +S1, +S2 - GI/Abdominal Exam GI & Abdominal Exam: Soft - Neurological Exam Neurological Exam: Alert, Awake - Extremities Exam Additional comments: +1 pitting edema bilateral lower extremities Plan - Assessment of Findings&Treatment Plan Resident lamination assembler FLIGHT SERVICE SPECIALIST Note: FLIGHT SERVICE SPECIALIST called by RN for altered mental status. As per RN patient was awake and responsive at lunch and became tired during the afternoon. Patient was altered at approximately at 1800. Patient seen and examined at bedside. Notified by staff that patients blood glucose was less than 20. Two amps of D50 pushed stat. Patient became more alert and awake. Patient responds to verbal stimuli and follows commands. Admits to feeling tender in lower extremities secondary to applying pressure to digits. Offers no new complaints. Denies chest pain, SOB, palpitations. A/P: Altered Mental Status - hypoglycemia BG in 20s- 2 amps of D50 given, repeat blood glucose in 400s - D5 NS @ 40 - CT of head without contrast ordered and pending- will sign out to night team to follow up if not read by end of shift - CBC, CMP, Mag, Phos, PT-INR ordered and pending- will sign out to night team to follow up if not resulted by end of shift - primary team, Dr. Onofre, notified and agrees with plan Patient seen, case reviewed with, and plan approved by attending physician, Dr. London. <Maisha London - Last Filed: 10/16/17 12:08> FLIGHT SERVICE SPECIALIST Nurse Assessment - Vital Signs Vital Sign: Rapid Response Vital Sign Blood Pressure 115/62 Pulse Rate 62 Respiratory Rate 12 Temperature 97.6 F - Vital Signs at end of FLIGHT SERVICE SPECIALIST Vital Signs at end of FLIGHT SERVICE SPECIALIST: Rapid Response End Vital Sign Blood Pressure 115/62 Pulse Rate 82 Respiratory Rate 12 Temperature 97.6 F Attending/Attestation - Attestation I have personally seen and examined this patient.: Yes I have fully participated in the care of the patient.: Yes I have reviewed all pertinent clinical information, including history, physical exam and plan: Yes Notes (Text): 10/16/17 12:04 attending note; Patient seen and examined with resident during FLIGHT SERVICE SPECIALIST. Patient was lethargic this afternoon. Fingerstick was less than 20. 2 Ampules of IV dextrose given. started on dextrose normal saline. Follow-up finger stick closely. Patient was awake and answering a few questions. Patient is very cachectic with diagnosis of cirrhosis etiology unknown. INR is1.68. CT head is negative for bleeding. CBC showed anemia. BMP showed hyponatremia chronic liver disease.monitor closely. Case discussed with PMD Dr. Jacques in detail. further care Per PMD.
[2017-10-15 18:49] LABS: GRAN # 4.56 (1.4-6.5); GRAN % 77.4 % (50.0-68.0); LYMPH # 0.9 (1.2-3.4); LYMPH % 14.8 % (22.0-35.0); MEAN CELL VOLUME 93.4 fl (80.0-105.0); MEAN CORPUSCULAR HEMOGLOBIN 31.3 pg (25.0-35.0); MEAN CORPUSCULAR HGB CONC 33.6 g/dl (31.0-37.0); MEAN PLATELET VOLUME 9.2 fl (7.0-11.0); MONO # 0.5 (0.1-0.6); MONO % 7.8 % (1.0-6.0); RBC 3.19 10^6/uL (3.5-6.1); RED CELL DISTRIBUTION WIDTH 18.8 % (11.5-14.5); WHITE BLOOD COUNT 5.9 10^3/ul (4.5-11.0)
[2017-10-15] MEDS: Dextrose 5%/0.9% NS 1,000 ML IV SCH (18:55)
[2017-10-15 19:07] LABS: INR 1.68 (0.93-1.08); PROTHROMBIN TIME 19.3 SECONDS (9.4-12.5)
[2017-10-15 19:30] LABS: ALB/GLOB RATIO 0.9 (1.1-1.8); ALBUMIN 1.7 g/dL (3.0-4.8); ALT/SGPT 67 U/L (7-56); AST/SGOT 31 U/L (14-36); BLOOD UREA NITROGEN 20 mg/dL (7-21); GFR AFRICAN-AMERICAN > 60; GFR NON-AFRICAN AMERICAN > 60
--- NOTE | 2017-10-15 19:37 | PN ---
DATE: SUBJECTIVE: The patient is 62 years old, seen and examined. Seems to be doing a little better. No nausea. No vomiting. No diarrhea. Eating okay. Does not have good appetite. PHYSICAL EXAMINATION: VITAL SIGNS: She is afebrile, pulse 80, respirations 20, blood pressure 94/60. LUNGS: Bilateral good airflow. No rhonchi or crackle. HEART: S1 and S2 audible. ABDOMEN: Soft. Nontender. No rebound. No guarding. NEUROLOGIC: The patient is awake and alert, able to communicate, able to move all extremity. EXTREMITIES: Bilateral legs +1 edema. ASSESSMENT: 1. Significant weight loss, probably nutritional. She has positive CA19-9 and CA125. Unable to locate the source. Her transvaginal ultrasound only shows fibroid uterus. 2. Cirrhosis of liver, status post paracentesis. 3. History of gastric bypass. 4. Neuropathy. 5. Heterozygous hemochromatosis. 6. Multiple sclerosis. 7. Sarcoidosis. 8. Left arm deep venous thrombosis. PLAN: We will continue the patient on Azactam to cover UTI since she is growing E. coli is possible provided sacral decubiti since the patient is extremely cachectic. She is scheduled for diagnostic laparoscopy on Tuesday by Dr. Warren. Rad Onofre MD
--- NOTE | 2017-10-15 21:34 | CT ---
EXAM: CT Head Without Intravenous Contrast CLINICAL HISTORY: 62 years old, female; Signs and symptoms; Altered mental status/memory loss; Patient HX: AMS TECHNIQUE: Axial computed tomography images of the head/brain without intravenous contrast. All CT scans at this facility use one or more dose reduction techniques, viz.: automated exposure control; ma/kV adjustment per patient size (including targeted exams where dose is matched to indication; i.e. head); or iterative reconstruction technique. Coronal and sagittal reformatted images were created and reviewed. COMPARISON: No relevant prior studies available. FINDINGS: Brain: Moderate atrophy. No intracranial hemorrhage. No mass. Minimal decreased attenuation within periventricular white matter. No definite edema. Ventricles: No hydrocephalus. Bones/joints: No acute fracture. Soft tissues: Mild diffuse infiltration of soft tissues. Sinuses: Scattered minimal mucosal thickening of ethmoid sinuses. Mastoid air cells: No mastoid effusion. Orbits: Unremarkable as visualized. IMPRESSION: 1. Nonspecific white matter changes. Acute infarction may be CT occult within first 24 hours. If a focal deficit persists, consider followup CT or MRI for further evaluation. 2. Incidental/non-acute findings are described above.
--- NOTE | 2017-10-15 22:31 | PN ---
DATE: 10/15/2017 SUBJECTIVE: The patient seen early this morning. She is weak and cachectic with wasting syndrome, poor appetite on exam. PHYSICAL EXAMINATION: VITAL SIGNS: Temperature is 97 and blood pressure is 94/60, respiratory rate 20, heart rate of 80. HEENT: Examination of HEENT unremarkable. NECK: Supple. LUNGS: Have decreased breath sounds. HEART: Normal S1, S2. ABDOMEN: Soft, nontender. LABORATORY EXAMINATION: Reveals a white count of 8.2, hemoglobin of 11 and chemistries reveals a BUN of 20, creatinine of 0.7. Urinalysis is noted. Microbiology is noted. ASSESSMENT/PLAN: A 62-year-old female with Escherichia coli urinary tract infection, bilateral lower extremity cellulitis by history, transaminitis etiology is clear, hypertension, chronic anemia, multiple sclerosis, sarcoidosis, history of pancreatitis. Currently, the patient is on the Azactam, . Today is day #3 with complete 5-7 days. James Latif MD
[2017-10-16] MEDS: Aztreonam 1 Gm in NS 100mL 100 ML IVPB SCH ×3 (06:41→22:13)
[2017-10-16] MEDS: ADERALL PO SCH (06:41)
[2017-10-16] MEDS: Pantoprazole 40 mg EC Tab PO SCH (06:42)
[2017-10-16] MEDS ORDERED: Acetaminophen 650mg/20.3ml solution UD PO PRN (09:35)
[2017-10-16] MEDS: Oxycodone/Acetaminophen 5/325 mg Tab PO PRN (09:44)
[2017-10-16] MEDS: Enoxaparin 30 mg Syringe SC SCH ×2 (09:45→22:14)
--- NOTE | 2017-10-16 09:46 | CP.PCM.PN ---
Subjective - Date & Time of Evaluation Date of Evaluation: 10/16/17 Time of Evaluation: 07:10 - Subjective Subjective: Surgery Progress note. Dr. Warren Pt seen and examined at bedside. 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 States that she feels better today. She is still c/o decreased appetite and is worse as she does not like the food here. Denies any new complaints. No F /C. Pain controlled. Objective - Vital Signs/Intake and Output Vital Signs (last 24 hours): Temp Pulse Resp BP Pulse Ox 98.6 F 74 18 91/59 L 100 10/16/17 08:11 10/16/17 08:11 10/16/17 08:11 10/16/17 08:11 10/16/17 08:11 Intake and Output: 10/16/17 10/16/17 06:59 18:59 Output Total 275 Balance -275 - Medications Medications: Current Medications Acetaminophen (Tylenol 650mg/20.3ml Solution Ud) 650 mg PO Q6H PRN PRN Reason: Pain, Mild (1-3) Bisacodyl (Dulcolax) 10 mg RC DAILY [facility] Last Admin: 10/15/17 09:41 Dose: 10 mg Buspirone HCl (Buspar) 5 mg PO BID [facility] PRN Reason: Protocol Last Admin: 10/15/17 18:01 Dose: 5 mg Carbamide Peroxide (Debrox Ear Drops) 1 ml AU BID [facility] Stop: 10/18/17 18:46 Last Admin: 10/15/17 18:02 Dose: 1 drop Citalopram Hydrobromide (Celexa) 20 mg PO DAILY [facility] Last Admin: 10/15/17 09:41 Dose: 20 mg Enoxaparin Sodium (Lovenox) 30 mg SC Q12H [facility] PRN Reason: Protocol Last Admin: 10/15/17 21:37 Dose: 30 mg Fentanyl (Duragesic) 1 patch TD Q72H [facility] Gabapentin (Neurontin) 300 mg PO TID [facility] PRN Reason: Protocol Last Admin: 10/15/17 18:02 Dose: 300 mg Home Med (Home Med) 0 unit PO 0530 [facility] Last Admin: 10/16/17 06:41 Dose: 1 unit Aztreonam (Azactam 1 Gm) 100 mls @ 100 mls/hr IVPB Q8 [facility] PRN Reason: Protocol Stop: 10/22/17 22:01 Last Admin: 10/16/17 06:41 Dose: 100 mls/hr Dextrose/Sodium Chloride (Dextrose 5%/0.9% Ns 1000 Ml) 1,000 mls @ 40 mls/hr IV .Q24H [facility] Last Admin: 10/15/17 18:55 Dose: 40 mls/hr Loratadine (Claritin) 10 mg PO DAILY PRN PRN Reason: Allergy symptoms Last Admin: 10/14/17 15:49 Dose: 10 mg Oxycodone/Acetaminophen (Percocet 5/325 Mg Tab) 1 tab PO Q6H PRN PRN Reason: Pain, moderate (4-7) Stop: 10/19/17 09:32 Pantoprazole Sodium (Protonix Ec Tab) 40 mg PO 0600 [facility] Last Admin: 10/16/17 06:42 Dose: 40 mg - Labs Labs: 10/15/17 18:25 10/15/17 18:25 PT 19.3 SECONDS (9.4-12.5) H 10/15/17 18:25 INR 1.68 (0.93-1.08) H 10/15/17 18:25 APTT 41.1 Seconds (25.1-36.5) H 10/14/17 15:44 - Constitutional Appears: No Acute Distress, Older Than Stated Age, Cachectic, Chronically Ill - Head Exam Head Exam: ATRAUMATIC, NORMAL INSPECTION, NORMOCEPHALIC - Eye Exam Eye Exam: EOMI - ENT Exam ENT Exam: Mucous Membranes Moist - Respiratory Exam Respiratory Exam: NORMAL BREATHING PATTERN. absent: Accessory Muscle Use, Respiratory Distress - Cardiovascular Exam Cardiovascular Exam: RRR. absent: JVD - GI/Abdominal Exam GI & Abdominal Exam: Soft. absent: Distended, Firm, Guarding, Rigid, Tenderness , Rebound - Extremities Exam Extremities Exam: Normal Inspection. absent: Calf Tenderness - Neurological Exam Neurological Exam: Alert, Awake, Oriented x3 - Psychiatric Exam Psychiatric exam: Normal Affect, Normal Mood - Skin Skin Exam: Dry, Intact, Pallor, Warm Assessment and Plan - Assessment and Plan (Free Text) Assessment: 62yo w Anorexia, cachexia. Elevated CA 19-9/CA 125. SAAG <1.1 concerning for neoplastic disease - Hypoglycemic episode noted yesterday. Plan: - NPO past mn for possible OR Tuesday for dx lap - Supplements to increase nutritional status in the interim - f/u AM labs Further recs as per Dr. Briana Garrett PGY1 surgery pager: [phone]
[2017-10-16] MEDS: Dextrose 5%/0.9% NS 1,000 ML IV SCH ×2 (18:09→22:17)
--- NOTE | 2017-10-16 22:46 | PN ---
DATE: 10/16/2017 SUBJECTIVE: The patient is in bed in no acute distress, nontoxic. No fevers and chills. The patient was seen early this morning. Yesterday's episode of rapid response is noted and the patient had a period of hypoglycemia. PHYSICAL EXAMINATION: VITAL SIGNS: Temperature of 98, blood pressure is 190/50, respiratory rate of 20, heart rate of 80. HEENT: Examination of HEENT is unremarkable. NECK: Supple. LUNGS: Have decreased breath sounds. HEART: Normal S1, S2. ABDOMEN: Soft, nontender. No organomegaly or rebound. LABORATORY EXAMINATION: Reveals a white count of 5.9, hemoglobin of 10, platelets of 139. Urinalysis is noted and microbiology reveals E. Coli in the urine. The ascitic fluid cultures are negative. The E. Coli is pansensitive. Review of orders reveals the patient to be on the Aztreonam. ASSESSMENT/PLAN: This is a 62-year-old female with Escherichia coli urinary tract infection, bilateral lower extremity cellulitis by history, transaminase elevation is unclear, hypertension, chronic anemia, multiple sclerosis, sarcoidosis, history of pancreatitis on Azactam, today is day #4 with complete 5-7 days of the antibiotic. We will follow closely with you. James Latif MD
[2017-10-17] MEDS: Oxycodone/Acetaminophen 5/325 mg Tab PO PRN (00:12)
[2017-10-17] MEDS ORDERED: Phytonadione 10 mg/ml Inj (Adult) SC ONE ×2 (00:22→07:00)
[2017-10-17] MEDS ORDERED: Sodium Chloride 0.9% 1,000 ML IV SCH ×2 (00:30→10:01)
[2017-10-17] MEDS: Aztreonam 1 Gm in NS 100mL 100 ML IVPB SCH ×2 (05:04→18:27)
[2017-10-17 07:00] LABS: EOS # 0.1 (0.0-0.7); EOS % 1.8 % (1.5-5.0); GRAN # 3.34 (1.4-6.5); GRAN % 66.8 % (50.0-68.0); HEMOGLOBIN 9.7 g/dL (12.0-16.0); LYMPH # 1.1 (1.2-3.4); MEAN CELL VOLUME 93.8 fl (80.0-105.0); MEAN CORPUSCULAR HEMOGLOBIN 31.5 pg (25.0-35.0); MEAN CORPUSCULAR HGB CONC 33.6 g/dl (31.0-37.0); MONO # 0.5 (0.1-0.6); MONO % 9.4 % (1.0-6.0); RBC 3.08 10^6/uL (3.5-6.1); RED CELL DISTRIBUTION WIDTH 19.7 % (11.5-14.5)
[2017-10-17] MEDS: Pantoprazole 40 mg EC Tab PO SCH (07:03)
[2017-10-17] MEDS: ADERALL PO SCH (07:03)
[2017-10-17 07:05] LABS: INR 1.68 (0.93-1.08); PARTIAL THROMBOPLASTIN TIME 36.3 Seconds (25.1-36.5); PROTHROMBIN TIME 19.5 SECONDS (9.4-12.5)
[2017-10-17 07:33] LABS: ALB/GLOB RATIO 0.8 (1.1-1.8); ALBUMIN 1.7 g/dL (3.0-4.8); ALT/SGPT 60 U/L (7-56); AST/SGOT 25 U/L (14-36); BLOOD UREA NITROGEN 17 mg/dL (7-21); CALCIUM 6.9 mg/dL (8.4-10.5); GFR AFRICAN-AMERICAN > 60; GFR NON-AFRICAN AMERICAN > 60
[2017-10-17] MEDS ORDERED: Dextrose 50% SYRINGE Inj (50 ml) IVP ONE ×2 (07:44→16:23)
[2017-10-17] MEDS ORDERED: Albumin Human 25% (12.5 gm/50 ml) IV ONE (09:27)
--- NOTE | 2017-10-17 10:02 | PN ---
DATE: 10/16/2017 HISTORY OF PRESENT ILLNESS: Rachelle Mclaughlin was admitted with multiple medical problems cirrhosis of liver, history of gastric bypass surgery, hemochromatosis. She had a rapid response last night, glucose was 26, currently on glucose drip. REVIEW OF SYSTEMS: As per HPI. Rest of 12-point review of systems reviewed negative. PHYSICAL EXAMINATION: GENERAL: Comfortable in bed, in no acute distress. VITAL SIGNS: Temperature 98, heart rate is 85 per minute, blood pressure 94/70. HEENT: Pallor positive. NECK: No lymphadenopathy. CHEST: Air entry present and equal bilaterally. No added sounds. CARDIOVASCULAR: S1, S2 normal. No murmur. No gallop. ABDOMEN: Soft, nontender. No hepatosplenomegaly. EXTREMITIES: 1+ edema. NEUROLOGIC: Awake, alert, oriented x3. SKIN: No petechiae. No rash. LABORATORY DATA: Sodium 128, potassium 3.6, glucose was less than 20, current glucose is 109. White count 4.9, hemoglobin 10, hematocrit 29, platelets 139. MEDICATIONS: , BuSpar 5 mg b.i.d., citalopram 20 mg daily, Dextrose 40 mL every 24 hours, Lovenox 30 mg subcutaneous every 12, Duragesic patch, gabapentin, loratadine, Protonix. ASSESSMENT AND PLAN: 1. Severe iron deficiency anemia. 2. Hypoglycemia. 3. Hemochromatosis. 4. Cirrhosis of liver. 5. Worked up for occult malignancy. PLAN: We will continue glucose drip. She is on broad-spectrum antibiotic , Lovenox 30 mg subcutaneous every 12, Duragesic patch for pain, gabapentin, Neurontin 300 mg p.o. b.i.d., pain control with current medications. GI, Dr. Alvarado following ID, Dr. Latif reviewed. Aria Merrill MD
[2017-10-17] MEDS ORDERED: Propofol 10 mg/ml Inj (20 ML) ONE (11:18)
[2017-10-17] MEDS ORDERED: Midazolam 2 MG/2 ML VIAL ONE (11:18)
[2017-10-17] MEDS ORDERED: Bupivacaine 0.5% Inj(30mL) ONE (11:20)
[2017-10-17] MEDS ORDERED: Bupivacaine 0.5% Inj(30mL) IJ ONE ×2 (11:20→12:15)
[2017-10-17] MEDS ORDERED: Etomidate 20 mg/10ml Inj IV ONE (11:51)
[2017-10-17] MEDS ORDERED: Neostigmine Methylsulfate 3mg/3ml Syringe IV ONE (12:16)
[2017-10-17] MEDS ORDERED: Glycopyrrolate 0.2 mg/ml (2ml vial) ONE (12:16)
--- NOTE | 2017-10-17 12:48 | PCM.SURG1 ---
Surgeon's Initial Post Op Note - Surgeon's Notes Surgeon: Dr. Golden Dining Room Host/Hostess: Jessica Enriquez PGY2 Type of Anesthesia: General Endo, Local Pre-Operative Diagnosis: r/o malignancy, ascites Operative Findings: 3L ascites out, No mass on ovaries, No peritoneal seeding or carcinomatosis, Liver unvisualized 2/2 extensive adhesion of omentum to the upper abd wall Post-Operative Diagnosis: No visible ovarian malignancy or carcinomatosis. Operation Performed: Diagnostic laparoscopy with aspiration of ascites Specimen/Specimens Removed: Ascites Estimated Blood Loss: EBL {In ML}: 10 Blood Products Given: N/A Drains Used: No Drains Post-Op Condition: Fair Date of Surgery/Procedure: 10/17/17 Time of Surgery/Procedure: 12:48
--- NOTE | 2017-10-17 12:51 | PN ---
DATE: SUBJECTIVE: The patient is 62 years old, scheduled for OR, had low blood pressure. Given one dose of albumin. The patient complained of generalized weakness. PHYSICAL EXAMINATION VITAL SIGNS: She is afebrile, pulse 56, respirations 18, blood pressure 78/51. LUNGS: Bilateral good airflow. No rhonchi or crackle. HEART: S1 and S2 audible. ABDOMEN: Soft. Nontender. No rebound. No guarding. NEUROLOGIC: The patient is awake and alert, able to communicate. EXTREMITIES: Bilateral leg +1 edema. LABORATORY EXAM: WBC 5, hemoglobin 9.7, hematocrit 28.9, platelet 165. PT 19.5, INR 1.68. Chemistry: Sodium 136, potassium 3.2, chloride 104, CO2 of 28, BUN 17, creatinine 0.5, blood sugar of 78. ASSESSMENT: 1. Significant weight loss, etiology unclear, probably nutritional. The patient is going for diagnostic laparoscopy. 2. Hypotension. 3. Hypoalbuminemia. 4. Chronic anemia. 5. Sarcoidosis. 6. History of multiple sclerosis. 7. Escherichia coli urinary tract infection. PLAN: We will discuss with Dr. Warren. We will continue her on current medication. After procedure, we will cut down her fluid to 75 mL/hour. We will make discharge plan for [facility] for rehab in the a.. Rad Onofre MD
--- NOTE | 2017-10-17 14:03 | CP.PCM.PN ---
<Woodrow Garrett - Last Filed: 10/17/17 13:59> Subjective - Date & Time of Evaluation Date of Evaluation: 10/17/17 Time of Evaluation: 09:10 - Subjective Subjective: GI Progress note. Dr. Alvarado Pt seen and examined at bedside. No acute events overnight. Had episode of hypoglycemia over the weekend. Still reports decreased appetite. No N/V/D. No abd pain. Objective - Vital Signs/Intake and Output Vital Signs (last 24 hours): Temp Pulse Resp BP Pulse Ox 96.4 F L 67 16 107/78 97 10/17/17 13:31 10/17/17 13:31 10/17/17 13:31 10/17/17 13:31 10/17/17 13:31 Intake and Output: 10/17/17 10/17/17 06:59 18:59 Intake Total 0 Output Total 300 Balance -300 - Medications Medications: Current Medications Acetaminophen (Tylenol 650mg/20.3ml Solution Ud) 650 mg PO Q6H PRN PRN Reason: Pain, Mild (1-3) Bisacodyl (Dulcolax) 10 mg RC DAILY [facility] Last Admin: 10/17/17 10:01 Dose: Not Given Buspirone HCl (Buspar) 5 mg PO BID [facility] PRN Reason: Protocol Last Admin: 10/17/17 10:01 Dose: Not Given Carbamide Peroxide (Debrox Ear Drops) 1 ml AU BID [facility] Stop: 10/18/17 18:46 Last Admin: 10/17/17 10:01 Dose: Not Given Citalopram Hydrobromide (Celexa) 20 mg PO DAILY [facility] Last Admin: 10/17/17 10:01 Dose: Not Given Enoxaparin Sodium (Lovenox) 30 mg SC Q12H [facility] PRN Reason: Protocol Last Admin: 10/16/17 22:14 Dose: 30 mg Fentanyl (Duragesic) 1 patch TD Q72H [facility] Last Admin: 10/16/17 12:18 Dose: 1 patch Gabapentin (Neurontin) 300 mg PO TID [facility] PRN Reason: Protocol Last Admin: 10/17/17 10:02 Dose: Not Given Home Med (Home Med) 0 unit PO 0530 [facility] Last Admin: 10/17/17 07:03 Dose: Not Given Hydromorphone HCl (Dilaudid) 0.5 mg IVP Q4H PRN PRN Reason: Pain, severe (8-10) Aztreonam (Azactam 1 Gm) 100 mls @ 100 mls/hr IVPB Q8 [facility] PRN Reason: Protocol Stop: 10/22/17 22:01 Last Admin: 10/17/17 05:04 Dose: 100 mls/hr Sodium Chloride (Sodium Chloride 0.9%) 1,000 mls @ 75 mls/hr IV .[id number] [facility] Loratadine (Claritin) 10 mg PO DAILY PRN PRN Reason: Allergy symptoms Last Admin: 10/14/17 15:49 Dose: 10 mg Oxycodone/Acetaminophen (Percocet 5/325 Mg Tab) 1 tab PO Q6H PRN PRN Reason: Pain, moderate (4-7) Stop: 10/19/17 09:32 Last Admin: 10/17/17 00:12 Dose: 1 tab Pantoprazole Sodium (Protonix Ec Tab) 40 mg PO 0600 [facility] Last Admin: 10/17/17 07:03 Dose: Not Given - Labs Labs: 10/17/17 05:45 10/17/17 05:45 PT 19.5 SECONDS (9.4-12.5) H 10/17/17 05:45 INR 1.68 (0.93-1.08) H 10/17/17 05:45 APTT 36.3 Seconds (25.1-36.5) 10/17/17 05:45 - Constitutional Appears: Non-toxic, No Acute Distress, Older Than Stated Age, Cachectic, Chronically Ill - Head Exam Head Exam: ATRAUMATIC, NORMAL INSPECTION, NORMOCEPHALIC - Eye Exam Eye Exam: EOMI - Respiratory Exam Respiratory Exam: NORMAL BREATHING PATTERN. absent: Accessory Muscle Use, Respiratory Distress - GI/Abdominal Exam GI & Abdominal Exam: Soft. absent: Tenderness, Mass, Rebound - Extremities Exam Extremities Exam: Normal Inspection. absent: Calf Tenderness - Neurological Exam Neurological Exam: Alert, Awake, Oriented x3 - Skin Skin Exam: Pallor Assessment and Plan - Assessment and Plan (Free Text) Assessment: 62yo F with Anorexia, cachexia. Elevated CA 19-9/CA 125. SAAG <1.1 concerning for neoplastic disease Plan: - f/u Surgery findings from Dx Lap scheduled today - continue current management Further recs as per Dr. Jenny Garrett PGY1 <Ami Alvarado V - Last Filed: 10/17/17 23:43> Objective - Vital Signs/Intake and Output Vital Signs (last 24 hours): Temp Pulse Resp BP Pulse Ox 98.1 F 63 19 88/59 L 98 10/17/17 20:30 10/17/17 20:30 10/17/17 20:30 10/17/17 20:30 10/17/17 20:30 Intake and Output: 10/17/17 10/18/17 18:59 06:59 Intake Total 480 Output Total 600 Balance -120 - Medications Medications: Current Medications Acetaminophen (Tylenol 650mg/20.3ml Solution Ud) 650 mg PO Q6H PRN PRN Reason: Pain, Mild (1-3) Bisacodyl (Dulcolax) 10 mg RC DAILY [facility] Last Admin: 10/17/17 10:01 Dose: Not Given Buspirone HCl (Buspar) 5 mg PO BID [facility] PRN Reason: Protocol Last Admin: 10/17/17 18:27 Dose: 5 mg Carbamide Peroxide (Debrox Ear Drops) 1 ml AU BID [facility] Stop: 10/18/17 18:46 Last Admin: 10/17/17 18:29 Dose: 1 drop Citalopram Hydrobromide (Celexa) 20 mg PO DAILY [facility] Last Admin: 10/17/17 10:01 Dose: Not Given Enoxaparin Sodium (Lovenox) 30 mg SC Q12H [facility] PRN Reason: Protocol Last Admin: 10/16/17 22:14 Dose: 30 mg Fentanyl (Duragesic) 1 patch TD Q72H [facility] Last Admin: 10/16/17 12:18 Dose: 1 patch Gabapentin (Neurontin) 300 mg PO TID [facility] PRN Reason: Protocol Last Admin: 10/17/17 18:27 Dose: 300 mg Home Med (Home Med) 0 unit PO 0530 [facility] Last Admin: 10/17/17 07:03 Dose: Not Given Hydromorphone HCl (Dilaudid) 0.5 mg IVP Q4H PRN PRN Reason: Pain, severe (8-10) Last Admin: 10/17/17 21:40 Dose: 0.5 mg Aztreonam (Azactam 1 Gm) 100 mls @ 100 mls/hr IVPB Q8 [facility] PRN Reason: Protocol Stop: 10/22/17 22:01 Last Admin: 10/17/17 18:27 Dose: 100 mls/hr Sodium Chloride (Sodium Chloride 0.9%) 1,000 mls @ 75 mls/hr IV .[id number] [facility] Last Admin: 10/17/17 20:51 Dose: 75 mls/hr Loratadine (Claritin) 10 mg PO DAILY PRN PRN Reason: Allergy symptoms Last Admin: 10/14/17 15:49 Dose: 10 mg Oxycodone/Acetaminophen (Percocet 5/325 Mg Tab) 1 tab PO Q6H PRN PRN Reason: Pain, moderate (4-7) Stop: 10/19/17 09:32 Last Admin: 10/17/17 00:12 Dose: 1 tab Pantoprazole Sodium (Protonix Ec Tab) 40 mg PO 0600 [facility] Last Admin: 10/17/17 07:03 Dose: Not Given - Labs Labs: 10/17/17 05:45 10/17/17 05:45 PT 19.5 SECONDS (9.4-12.5) H 10/17/17 05:45 INR 1.68 (0.93-1.08) H 10/17/17 05:45 APTT 36.3 Seconds (25.1-36.5) 10/17/17 05:45 Attending/Attestation - Attestation I have personally seen and examined this patient.: Yes I have fully participated in the care of the patient.: Yes I have reviewed all pertinent clinical information, including history, physical exam and plan: Yes Notes (Text): This is an addendum to GI progress report dictated by the Embedded Software Developer.The patient was seen and examined earlier. Medical records, lab studies, imagings were reviewed. Last 24 hours events reviewed. Agreed with the above treatment plan as outlined in Embedded Software Developer 's notes the with the addition of the following 10/17/17 23:42
[2017-10-17] MEDS: Sodium Chloride 0.9% 1,000 ML IV SCH ×2 (16:16→20:51)
[2017-10-17] MEDS ORDERED: Dextrose 50% SYRINGE Inj (50 ml) ONE (16:21)
[2017-10-17] MEDS: HYDROmorphone 0.5 mg/0.5 ml ISec IVP PRN ×2 (17:39→21:40)
--- NOTE | 2017-10-17 18:57 | CP.PCM.PN ---
Subjective - Date & Time of Evaluation Date of Evaluation: 10/17/17 Time of Evaluation: 11:10 - Subjective Subjective: No fevers, not in distress. Objective - Vital Signs/Intake and Output Vital Signs (last 24 hours): Temp Pulse Resp BP Pulse Ox 98.6 F 63 18 92/63 L 93 L 10/17/17 16:00 10/17/17 16:00 10/17/17 16:00 10/17/17 16:00 10/17/17 16:00 Intake and Output: 10/17/17 10/17/17 06:59 18:59 Intake Total 0 Output Total 300 Balance -300 - Medications Medications: Current Medications Acetaminophen (Tylenol 650mg/20.3ml Solution Ud) 650 mg PO Q6H PRN PRN Reason: Pain, Mild (1-3) Bisacodyl (Dulcolax) 10 mg RC DAILY [facility] Last Admin: 10/17/17 10:01 Dose: Not Given Buspirone HCl (Buspar) 5 mg PO BID [facility] PRN Reason: Protocol Last Admin: 10/17/17 18:27 Dose: 5 mg Carbamide Peroxide (Debrox Ear Drops) 1 ml AU BID [facility] Stop: 10/18/17 18:46 Last Admin: 10/17/17 18:29 Dose: 1 drop Citalopram Hydrobromide (Celexa) 20 mg PO DAILY [facility] Last Admin: 10/17/17 10:01 Dose: Not Given Enoxaparin Sodium (Lovenox) 30 mg SC Q12H [facility] PRN Reason: Protocol Last Admin: 10/16/17 22:14 Dose: 30 mg Fentanyl (Duragesic) 1 patch TD Q72H [facility] Last Admin: 10/16/17 12:18 Dose: 1 patch Gabapentin (Neurontin) 300 mg PO TID [facility] PRN Reason: Protocol Last Admin: 10/17/17 18:27 Dose: 300 mg Home Med (Home Med) 0 unit PO 0530 [facility] Last Admin: 10/17/17 07:03 Dose: Not Given Hydromorphone HCl (Dilaudid) 0.5 mg IVP Q4H PRN PRN Reason: Pain, severe (8-10) Last Admin: 10/17/17 17:39 Dose: 0.5 mg Aztreonam (Azactam 1 Gm) 100 mls @ 100 mls/hr IVPB Q8 [facility] PRN Reason: Protocol Stop: 10/22/17 22:01 Last Admin: 10/17/17 18:27 Dose: 100 mls/hr Sodium Chloride (Sodium Chloride 0.9%) 1,000 mls @ 75 mls/hr IV .[id number] [facility] Last Admin: 10/17/17 16:16 Dose: Not Given Loratadine (Claritin) 10 mg PO DAILY PRN PRN Reason: Allergy symptoms Last Admin: 10/14/17 15:49 Dose: 10 mg Oxycodone/Acetaminophen (Percocet 5/325 Mg Tab) 1 tab PO Q6H PRN PRN Reason: Pain, moderate (4-7) Stop: 10/19/17 09:32 Last Admin: 10/17/17 00:12 Dose: 1 tab Pantoprazole Sodium (Protonix Ec Tab) 40 mg PO 0600 [facility] Last Admin: 10/17/17 07:03 Dose: Not Given - Labs Labs: 10/17/17 05:45 10/17/17 05:45 PT 19.5 SECONDS (9.4-12.5) H 10/17/17 05:45 INR 1.68 (0.93-1.08) H 10/17/17 05:45 APTT 36.3 Seconds (25.1-36.5) 10/17/17 05:45 - Constitutional Appears: Cachectic, Chronically Ill - Head Exam Head Exam: NORMAL INSPECTION - Respiratory Exam Respiratory Exam: Decreased Breath Sounds - Cardiovascular Exam Cardiovascular Exam: +S1, +S2 - GI/Abdominal Exam GI & Abdominal Exam: Soft. absent: Tenderness Assessment and Plan - Assessment and Plan (Free Text) Plan: Assessment E. coli UTI history of bilateral lower extremity cellulitis transamintis, etiology to be determined history of bilateral lower extremity skin and skin structure infection with MRSA and Klebsiella chronic anemia HTN multiple sclerosis sarcoidosis history of pancreatitis S/P left ureteral stent Plan continue Aztreonam day 5 - should complete 5-7 days of therapy
--- NOTE | 2017-10-17 21:42 | OP ---
PROCEDURE DATE: 10/17/2017 PREOPERATIVE DIAGNOSES: Abdominal distension, ascites, elevated tumor markers, and malnutrition. POSTOPERATIVE DIAGNOSES: Abdominal distension, ascites, elevated tumor markers, and malnutrition. PROCEDURES PERFORMED: 1. Diagnostic laparoscopy. 2. Laparoscopic drainage of ascites. SURGEON: Momo Warren MD SHARED SERVICES REPRESENTATIVE: Dr. Enriquez. ANESTHESIOLOGIST: Dr. Simms. ANESTHESIA: General endotracheal anesthesia. ESTIMATED BLOOD LOSS: Minimal. SPECIMEN: Ascites. INDICATIONS: The patient is a 62-year-old female with history of gastric polyps done many years ago of unknown pathology. The patient was admitted with malnutrition and weight loss and elevated tumor markers with CA-19 being elevated. Suspicion was that the patient has an ovarian cancer, as no other study showed any significant findings, and a decision was made to proceed with a diagnostic laparoscopy to evaluate ovaries. DESCRIPTION OF PROCEDURE: The patient was brought to the operating room, placed on the operating table in a supine position. The patient was connected to EKG, blood pressure, and pulse oximetry monitors. The patient then underwent general endotracheal anesthesia and was prepped and draped in the usual sterile fashion. First, standard time-out procedure took place and everybody in the room agreed as to the patient's identity, diagnoses and procedure to be performed. A surgical plan for the surgery as well as postoperative management was discussed. We then proceeded with the surgery. First, abdominal wall was elevated with 2 towel clamps at the umbilicus. The local anesthetic was infiltrated into the skin just below the umbilicus where the incision was made vertically. The Veress needle was inserted through that incision and pneumoperitoneum was obtained. A 12-mm trocar was inserted through that incision and careful evaluation of the abdominal cavity revealed presence of large amount of ascites. Those were carefully drained. Careful evaluation of the abdominal cavity revealed the presence of a normal-looking small bowel as well as a large bowel in the lower portion of the abdomen. The upper portion of the abdomen had omentum stuck to the entire abdominal wall along mid to upper abdominal wall, and there was no visible portion of the liver or the spleen accessible. I then carefully evaluated the uterus which appeared to be normal, the portion of the colon and rectum which appeared to be normal, and both left and right ovaries, both appeared to be atrophic. 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 We at this point released the pneumoperitoneum, removed the trocars, and closed the wounds under direct vision, using 0-Vicryl for the fascia, 3-0 Vicryl for the subcutaneous tissue, and 4-0 Monocryl for skin. A sterile Dermabond dressing was applied to the wound. The patient tolerated the procedure well and there were no complications. The patient was awakened and transferred to the recovery room for further observation. Momo Warren MD
[2017-10-18] MEDS: Aztreonam 1 Gm in NS 100mL 100 ML IVPB SCH ×3 (00:21→16:05)
[2017-10-18] MEDS: HYDROmorphone 0.5 mg/0.5 ml ISec IVP PRN ×4 (02:09→16:04)
[2017-10-18 07:10] LABS: EOS % 0.5 % (1.5-5.0); GRAN # 4.42 (1.4-6.5); GRAN % 76.7 % (50.0-68.0); HEMOGLOBIN 10.8 g/dL (12.0-16.0); LYMPH # 0.8 (1.2-3.4); LYMPH % 14.6 % (22.0-35.0); MEAN CELL VOLUME 94.8 fl (80.0-105.0); MEAN CORPUSCULAR HGB CONC 32.7 g/dl (31.0-37.0); MEAN PLATELET VOLUME 8.9 fl (7.0-11.0); MONO # 0.5 (0.1-0.6); MONO % 8.2 % (1.0-6.0); RBC 3.48 10^6/uL (3.5-6.1); WHITE BLOOD COUNT 5.8 10^3/ul (4.5-11.0)
--- NOTE | 2017-10-18 07:27 | CP.PCM.PN ---
Subjective - Date & Time of Evaluation Date of Evaluation: 10/18/17 Time of Evaluation: 07:25 - Subjective Subjective: Patient seen and examined at bedside. Per nursing, no acute events occurred overnight. Patient is tolerating diet without any complications. Patient denies any abdominal pain, fevers, chills, vomiting, changes in vision, headache, or any other complaints. Objective - Vital Signs/Intake and Output Vital Signs (last 24 hours): Temp Pulse Resp BP Pulse Ox 98.1 F 63 18 97/65 L 98 10/18/17 00:00 10/18/17 00:00 10/18/17 00:00 10/18/17 00:00 10/18/17 00:00 Intake and Output: 10/18/17 10/18/17 06:59 18:59 Intake Total 600 Output Total 800 Balance -200 - Medications Medications: Current Medications Acetaminophen (Tylenol 650mg/20.3ml Solution Ud) 650 mg PO Q6H PRN PRN Reason: Pain, Mild (1-3) Bisacodyl (Dulcolax) 10 mg RC DAILY [facility] Last Admin: 10/17/17 10:01 Dose: Not Given Buspirone HCl (Buspar) 5 mg PO BID [facility] PRN Reason: Protocol Last Admin: 10/17/17 18:27 Dose: 5 mg Carbamide Peroxide (Debrox Ear Drops) 1 ml AU BID [facility] Stop: 10/18/17 18:46 Last Admin: 10/17/17 18:29 Dose: 1 drop Citalopram Hydrobromide (Celexa) 20 mg PO DAILY [facility] Last Admin: 10/17/17 10:01 Dose: Not Given Enoxaparin Sodium (Lovenox) 30 mg SC Q12H [facility] PRN Reason: Protocol Last Admin: 10/16/17 22:14 Dose: 30 mg Fentanyl (Duragesic) 1 patch TD Q72H [facility] Last Admin: 10/16/17 12:18 Dose: 1 patch Gabapentin (Neurontin) 300 mg PO TID [facility] PRN Reason: Protocol Last Admin: 10/17/17 18:27 Dose: 300 mg Home Med (Home Med) 0 unit PO 0530 [facility] Last Admin: 10/17/17 07:03 Dose: Not Given Hydromorphone HCl (Dilaudid) 0.5 mg IVP Q4H PRN PRN Reason: Pain, severe (8-10) Last Admin: 10/18/17 06:10 Dose: 0.5 mg Aztreonam (Azactam 1 Gm) 100 mls @ 100 mls/hr IVPB Q8 [facility] PRN Reason: Protocol Stop: 10/22/17 22:01 Last Admin: 10/18/17 06:08 Dose: 100 mls/hr Sodium Chloride (Sodium Chloride 0.9%) 1,000 mls @ 75 mls/hr IV .[id number] [facility] Last Admin: 10/17/17 20:51 Dose: 75 mls/hr Loratadine (Claritin) 10 mg PO DAILY PRN PRN Reason: Allergy symptoms Last Admin: 10/14/17 15:49 Dose: 10 mg Oxycodone/Acetaminophen (Percocet 5/325 Mg Tab) 1 tab PO Q6H PRN PRN Reason: Pain, moderate (4-7) Stop: 10/19/17 09:32 Last Admin: 10/17/17 00:12 Dose: 1 tab Pantoprazole Sodium (Protonix Ec Tab) 40 mg PO 0600 [facility] Last Admin: 10/17/17 07:03 Dose: Not Given - Labs Labs: 10/17/17 05:45 10/17/17 05:45 PT 19.5 SECONDS (9.4-12.5) H 10/17/17 05:45 INR 1.68 (0.93-1.08) H 10/17/17 05:45 APTT 36.3 Seconds (25.1-36.5) 10/17/17 05:45 - Head Exam Head Exam: ATRAUMATIC, NORMAL INSPECTION, NORMOCEPHALIC - Eye Exam Eye Exam: EOMI, Normal appearance - ENT Exam ENT Exam: Mucous Membranes Moist - Respiratory Exam Respiratory Exam: NORMAL BREATHING PATTERN - Cardiovascular Exam Cardiovascular Exam: REGULAR RHYTHM - GI/Abdominal Exam GI & Abdominal Exam: Normal Bowel Sounds - Neurological Exam Neurological Exam: Alert, Awake - Psychiatric Exam Psychiatric exam: Normal Affect, Normal Mood - Skin Skin Exam: Dry, Intact, Normal Color Assessment and Plan - Assessment and Plan (Free Text) Assessment: 62yo F with Anorexia, Cachexia. - Elevated liver enzymes - Elevated CA 19-9/CA 125. Transvaginal US and Transabdominal US with no clear visualization of ovaries - r/o Hemochromatosis - SAAG <1.1 concerning for neoplastic disease Plan: -Hemeonc on board: hemachromatosis likely 2/2 multiple transfusion and IV iron for anemia -GI on board : Live biopsy unable to be obtained due to adhesions. -Continue regular diet. -Trend labs -Serial abd exam -Will f/u with cytology. -Contine Pain control -Will continue to monitor Will discuss with Dr. Warren
[2017-10-18 08:22] VITALS: BP 98/66; PULSE 76; RESP 20; TEMP 98.2; O2SAT 97
[2017-10-18 09:02] LABS: BLOOD UREA NITROGEN 15 mg/dL (7-21); CALCIUM 7.3 mg/dL (8.4-10.5); GFR AFRICAN-AMERICAN > 60; GFR NON-AFRICAN AMERICAN > 60
[2017-10-18] MEDS: Oxycodone/Acetaminophen 5/325 mg Tab PO PRN (09:05)
[2017-10-18] MEDS: Enoxaparin 30 mg Syringe SC SCH (10:50)
[2017-10-18] MEDS ORDERED: POLYETHYLENE GLYCOL 3350 17 GM/Dose PACKET PO SCH (12:15)
--- NOTE | 2017-10-18 13:47 | CP.PCM.PN ---
Subjective - Date & Time of Evaluation Date of Evaluation: 10/18/17 Time of Evaluation: 10:50 - Subjective Subjective: Seen and examined at the bedside earlier today, chart reviewed. Patient had diagnostic lap yesterday, no overtly mass noted carcinomatosis. Liver and visualized. Patient had 3 L of ascitic fluid removed, cytology pending. Denies nausea, vomiting, or abdominal pain. Reports last bowel movement be on Tuesday. Requesting MiraLAX. Objective - Vital Signs/Intake and Output Vital Signs (last 24 hours): Temp Pulse Resp BP Pulse Ox 98.2 F 76 20 98/66 L 97 10/18/17 08:22 10/18/17 08:22 10/18/17 08:22 10/18/17 08:22 10/18/17 08:22 Intake and Output: 10/18/17 10/18/17 06:59 18:59 Intake Total 600 Output Total 800 Balance -200 - Medications Medications: Current Medications Acetaminophen (Tylenol 650mg/20.3ml Solution Ud) 650 mg PO Q6H PRN PRN Reason: Pain, Mild (1-3) Bisacodyl (Dulcolax) 10 mg RC DAILY [facility] Last Admin: 10/18/17 10:50 Dose: 10 mg Buspirone HCl (Buspar) 5 mg PO BID [facility] PRN Reason: Protocol Last Admin: 10/18/17 10:47 Dose: 5 mg Carbamide Peroxide (Debrox Ear Drops) 1 ml AU BID [facility] Stop: 10/18/17 18:46 Last Admin: 10/18/17 10:48 Dose: 5 drop Citalopram Hydrobromide (Celexa) 20 mg PO DAILY [facility] Last Admin: 10/18/17 10:47 Dose: 20 mg Enoxaparin Sodium (Lovenox) 30 mg SC Q12H [facility] PRN Reason: Protocol Last Admin: 10/18/17 10:50 Dose: 30 mg Fentanyl (Duragesic) 1 patch TD Q72H [facility] Last Admin: 10/16/17 12:18 Dose: 1 patch Gabapentin (Neurontin) 300 mg PO TID [facility] PRN Reason: Protocol Last Admin: 10/18/17 10:48 Dose: 300 mg Home Med (Home Med) 0 unit PO 0530 [facility] Last Admin: 10/17/17 07:03 Dose: Not Given Hydromorphone HCl (Dilaudid) 0.5 mg IVP Q4H PRN PRN Reason: Pain, severe (8-10) Last Admin: 10/18/17 10:57 Dose: 0.5 mg Aztreonam (Azactam 1 Gm) 100 mls @ 100 mls/hr IVPB Q8 [facility] PRN Reason: Protocol Stop: 10/22/17 22:01 Last Admin: 10/18/17 06:08 Dose: 100 mls/hr Sodium Chloride (Sodium Chloride 0.9%) 1,000 mls @ 75 mls/hr IV .[id number] [facility] Last Admin: 10/17/17 20:51 Dose: 75 mls/hr Loratadine (Claritin) 10 mg PO DAILY PRN PRN Reason: Allergy symptoms Last Admin: 10/14/17 15:49 Dose: 10 mg Oxycodone/Acetaminophen (Percocet 5/325 Mg Tab) 1 tab PO Q6H PRN PRN Reason: Pain, moderate (4-7) Stop: 10/19/17 09:32 Last Admin: 10/18/17 09:05 Dose: 1 tab Pantoprazole Sodium (Protonix Ec Tab) 40 mg PO 0600 [facility] Last Admin: 10/17/17 07:03 Dose: Not Given Polyethylene Glycol (Miralax) 17 gm PO DAILY [facility] - Labs Labs: 10/18/17 07:00 10/18/17 08:40 PT 19.5 SECONDS (9.4-12.5) H 10/17/17 05:45 INR 1.68 (0.93-1.08) H 10/17/17 05:45 APTT 36.3 Seconds (25.1-36.5) 10/17/17 05:45 - Constitutional Appears: No Acute Distress, Cachectic - Eye Exam Eye Exam: Normal appearance. absent: Scleral icterus - ENT Exam ENT Exam: Mucous Membranes Moist - Neck Exam Neck Exam: Normal Inspection - Respiratory Exam Respiratory Exam: NORMAL BREATHING PATTERN. absent: Respiratory Distress - Cardiovascular Exam Cardiovascular Exam: +S1, +S2 - GI/Abdominal Exam GI & Abdominal Exam: Distended (less), Soft, Normal Bowel Sounds. absent: Guarding, Tenderness, Rebound Additional comments: lap site intact, durabond noted, no drain or erythema - Extremities Exam Extremities Exam: absent: Calf Tenderness, Pedal Edema - Neurological Exam Neurological Exam: Alert, Awake, Oriented x3 Assessment and Plan - Assessment and Plan (Free Text) Assessment: Assessment: S?P Exp lap, no mass seen, s/p removal of 3 L of ascitic fluid Elevated liver enzymes, slowly improving Status post MRCP, findings are suggestive of hemachromatosis and ascites Elevated CA 199/CA 125, Pelvic ultrasound/transvaginal ultrasound:this report 1.4 cm intramural fibroid mid body of the ovaries to the left, no adnexal mass, shows free fluid in the pelvis Weight loss Anemia Plan: FU cytology on IV antibiotic on regular diet Trend LFTs on Lovenox start Miralax, hold for stool >2/day on Dulcolax supp Continue PPI On Lovenox Seen and discussed with Dr. Alvarado
--- NOTE | 2017-10-18 18:21 | PN ---
DATE: 10/18/2017 SUBJECTIVE: The patient is lying in bed, status post exploratory lap yesterday, which was for diagnosing. There was no overt mass noted in the small bowel, large bowel or in the ovaries, but there was carcinomatosis in the omentum as well as large ascites and we are currently awaiting final pathology on that. She denies any other complaints at this point. No nausea. No vomiting. She has not had a bowel movement since the surgeon is very concerned about that. PHYSICAL EXAMINATION: VITAL SIGNS: Her vitals are stable with a temperature of 98.2, pulse of 76, respiratory rate of 20 and a blood pressure of 98/66. GENERAL: The patient is a cachectic, elderly female, lying in bed, in no acute distress. HEAD AND NECK: Normocephalic, atraumatic. Eyes: Pupils equal, round, reactive to light and accommodation. Extraocular muscles are intact. There is pallor. No icterus is noted. Neck is supple with no adenopathy, no JVD, no thyromegaly. LUNGS: Decreased breath sounds bilaterally. CARDIOVASCULAR: S1 and S2 are heard. The patient is not tachycardic. ABDOMEN: Positive bowel sounds. Soft. No distention today. EXTREMITIES: There is mild edema. LABORATORY DATA: Reveal a white count of 5.8, hemoglobin 10.8, hematocrit 33, MCV of 94 and a platelet count of 177. Chemistries are within normal limits. ASSESSMENT AND PLAN: Elderly, cachectic female with anemia, thrombocytopenia, initially concerned for hemochromatosis, though there is no evidence of hemochromatosis including gene mutations. She is now being worked up for malignancy as she has had progressive weight loss as well as anemia. 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 Likely, ovarian or peritoneal primary, though there are no primary masses noted on the ovaries. We will discuss with Pathology. Thank you for the consult. Once I have final diagnosis, we will discuss with the patient and family. Madelin Guo MD
--- NOTE | 2017-10-18 22:52 | PN ---
DATE: 10/18/2017 SUBJECTIVE: The patient is in bed, in no acute distress, nontoxic. No fevers. PHYSICAL EXAMINATION: VITAL SIGNS: Temperature is 98, blood pressure is 98/60, respiratory rate of 18. HEENT: Examination of HEENT is unremarkable. NECK: Supple. LUNGS: Have decreased breath sounds. HEART: Normal S1 and S2. ABDOMEN: Soft. LABORATORY DATA: Laboratory examination reveals white count of 5.8, hemoglobin of 10. BUN of 15, creatinine of 0.4. Urinalysis is noted. HIV is negative. Microbiology: There is E. coli in the urine from 10/12/2017, which is pansensitive. Review of orders reveals the patient to be on aztreonam. ASSESSMENT AND PLAN: A 62-year-old female with pansensitive Escherichia coli urinary tract infection and the patient is allergic to penicillin and history of bilateral lower extremity cellulitis and transaminitis and with multiple sources of sarcoidosis, history of pancreatitis, status post ureteral stent, on day #6 of aztreonam with complete 5-7 days. James Latif MD
--- NOTE | 2017-10-19 08:02 | PQF MALNUT ---
This form is a permanent part of the medical record Dr. Onofre, Please specify the severity of malnutrition. Thank you. Clarification of your documentation is requested to better reflect the severity of illness and intensity of treatment of your patient. Indicators present [xx] Cachexia (due to severe malnutrition) [x] Albumin < 2.8 [] Decreased Pre-albumin [] Dietary Consult [x] Provider documentation reflects BMI of: []_ = 15 [] Low serum proteins [] Documented weight loss [] Inability to consume adequate caloric intake [x] Anorexic [] Other: [] Location in the medical record that reflects the above clinical findings: [] Treatment Provided: [] PHYSICIAN'S RESPONSE Based on your medical judgment of the clinical indicators outlined above, are you treating this patient for a known or suspected: Type of Malnutrition Severity [] Mild [x] Moderate [] Severe [] Protein calorie [] Mild [x] Moderate [] severe [] Other, please indicate: []_ [] If Unable to Determine, please check the box, sign and date. Present On Admission (POA) Indicator: [x] Present at the time of admission [] Not present at the time of admission [] Clinically Undetermined In responding to this query, please exercise your independent professional judgment. The fact that a question is asked does not imply that any particular answer is desired or expected. Thank you for your clarification on this documentation. 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 Malnutrition may be described as mild, moderate or severe. There are variations in clinical indicators, lab values and risk factors with each type and degree. When reviewing the nutritional status of the client, the entire clinical picture should be assessed and taken into consideration rather than a focus on a single laboratory value. Mild Malnutrition: patient's weight is noted at 85-95% of normal body weight; BMI 18-18.9; serum albumin 3.0-3.4; total lymphocyte count [id number]. Moderate Malnutrition: patient's weight is noted at 75-85% of normal body weight ; BMI 16-17.9; serum albumin 2.4-3.0; total lymphocyte count 800-1500. Severe Malnutrition: patient's weight is noted at <75% of normal body weight, BMI <16, serum albumin <2.4, total lymphocyte count <800, abnormally low VLDL/ LDL levels, creatinine <0.6, BUN <8, cholesterol <160. Other clinical indicators include: loss of subq fat, muscle wasting of the extremities, skin lesions, decubitus ulcers, hair loss, lethargy, constipation, decreased pulse/ respiratory rates, relative hypotension, hepatomegaly d/t fat infiltration, poor wound healing.~~~~~~ Risk: poor intake d/t food avoidance or NPO status for >7 days, protracted nutritional losses from malabsorption states, hypermetabolic state such as sepsis, prolonged fever, extensive trauma or szymanski, alcohol/drug abuse, advanced age, CKD, trouble chewing or swallowing, some medications, depression/ social isolation, special diets such as low protein Treatment: dietary consultation, protein-calorie dietary supplementation, daily weights, PEG tube, psychiatric consultation, appetite stimulants (Megace). [employer] Principles of Internal Medicine, 17th edition, chapters 9, 72 and 234. The [employer] Nutritional Support Core Curriculum, 2007 MTDD
--- NOTE | 2017-10-19 10:04 | CP.PCM.PCO ---
Physician Communication Note - Physician Communication Note Physician Communication Note: pt was d/c
--- NOTE | 2017-10-19 14:19 | DS ---
HISTORY OF PRESENT ILLNESS: The patient is 62 years old who was admitted because of increasing leg swelling. She was found to be anemic, so she was brought to emergency room. She had diuresis done. She was hypotensive, was given aggressive IV albumin, blood transfusion. Her LFTs were abnormal too, so she was closely watched, was hydrated, did well. Malignancy workup was done. She does have positive CA125 and CA19-9, so end up having diagnostic laparoscopy, was unremarkable. Liver biopsy was not doable because of multiple adhesions from the previous surgery. PHYSICAL EXAMINATION: GENERAL: Today, she is awake, alert, oriented, complained of pain in the shoulders and back. VITAL SIGNS: She is afebrile, pulse 76, respirations 20, blood pressure 98/66. LUNGS: Bilateral fair airflow. No rhonchi or crackle. HEART: S1 and S2 audible. ABDOMEN: Soft, palpable, discomfort. NEUROLOGIC: The patient is awake, alert, oriented, able to communicate. LABORATORY DATA: WBC is 5.8, hemoglobin 10.8, hematocrit 33, and platelets 177. Chemistry: Sodium 134, potassium 4.3, chloride 106, CO2 of 24. BUN 15, creatinine 0.4. Blood sugar of 73. ASSESSMENT: 1. Weight loss, probably secondary to malnutrition. 2. Cirrhosis of liver, probably secondary to multiple transfusions in the past. 3. Fibroid uterus. 4. Chronic anemia. 5. Hypotension. 6. Hypoalbuminemia. PLAN: The patient is currently stable, will be transferred back to [facility] for rehab. We will monitor her CBC and electrolyte in the longterm and spoke to Dr. Guo. We will continue to monitor her iron, B12, and monitor her LFTs. Once the patient is little stable, we will try to get liver biopsy. Rad Onofre MD
== END 2017-10-18 23:23 | DRG 421 ==
LOC: ED 09:54 → ERH 13:36 → 3RNO 14:31
PROVIDERS: ADMIT Internal Medicine; ATTEND Internal Medicine
PROC: 0W9G3ZX Drainage of Peritoneal Cavity, Percutaneous Approach, Diagnostic (ICD-10-PCS; 2017-10-07)
PROC: 30233N1 Transfusion of Nonautologous Red Blood Cells into Peripheral Vein, Percutaneous Approach (ICD-10-PCS; 2017-10-11)
PROC: 0W9G4ZX Drainage of Peritoneal Cavity, Percutaneous Endoscopic Approach, Diagnostic (ICD-10-PCS; principal; 2017-10-17 10:15)
DX: K74.60 Unspecified cirrhosis of liver (principal); R18.8 Other ascites; R64 Cachexia; E44.0 Moderate protein-calorie malnutrition; Z68.1 Body mass index [BMI] 19.9 or less, adult; D68.4 Acquired coagulation factor deficiency; K76.6 Portal hypertension; I85.10 Secondary esophageal varices without bleeding; N39.0 Urinary tract infection, site not specified; I82.622 Acute embolism and thrombosis of deep veins of left upper extremity; L03.115 Cellulitis of right lower limb; L03.116 Cellulitis of left lower limb; E83.119 Hemochromatosis, unspecified; D53.9 Nutritional anemia, unspecified; E86.0 Dehydration; E87.6 Hypokalemia; G35 Multiple sclerosis; L89.152 Pressure ulcer of sacral region, stage 2; D50.9 Iron deficiency anemia, unspecified; N18.9 Chronic kidney disease, unspecified; I12.9 Hypertensive chronic kidney disease with stage 1 through stage 4 chronic kidney disease, or unspecified chronic kidney disease; I95.9 Hypotension, unspecified; R97.8 Other abnormal tumor markers; D51.3 Other dietary vitamin B12 deficiency anemia; I73.9 Peripheral vascular disease, unspecified; D86.9 Sarcoidosis, unspecified; B96.20 Unspecified Escherichia coli [E. coli] as the cause of diseases classified elsewhere; D25.1 Intramural leiomyoma of uterus; Z98.84 Bariatric surgery status; Z88.0 Allergy status to penicillin; N20.0 Calculus of kidney; K31.7 Polyp of stomach and duodenum; Z87.891 Personal history of nicotine dependence; R14.0 Abdominal distension (gaseous); G62.9 Polyneuropathy, unspecified; R97.1 Elevated cancer antigen 125 [CA 125]; K59.00 Constipation, unspecified; G89.4 Chronic pain syndrome; Z88.2 Allergy status to sulfonamides; K29.70 Gastritis, unspecified, without bleeding; E16.2 Hypoglycemia, unspecified

== ENCOUNTER 2017-10-28 17:58 | Inpatient (IN) | payer MEDICARE, OTHER ==
[2017-10-28] MEDS ORDERED: Famotidine 20mg/50ml 20 MG/50 ML BAG IVPB STA (18:53)
[2017-10-28] MEDS ORDERED: Sodium Chloride 0.9% 1,000 ML IV SCH (19:00)
--- NOTE | 2017-10-28 19:08 | ED PDOC ---
Arrival/HPI - General Chief Complaint: GI Problem Time Seen by Provider: 10/28/17 18:40 Historian: Patient, EMS - History of Present Illness Narrative History of Present Illness (Text): 10/28/17 18:56 pt p/w + sob, progressively worsening x 2 days; pt also noted mid abd distention , worsening over the last few days; pt states with her swollen abd, her legs are also swollen; pt states no fever/sweats, + chills, no cp/palpitations, + mild abd pain/cramps, no n/v, no new numbness/tingling, no urinary/bowel changes ; pt states she has had prior paracentesis in the past to drain abd swelling/ fluids (total of 3 prior); pt states no LOC, + dizziness/lightheadedness; pt also noted increasing b/l lower ext pain; pt states no other complaints 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 PCP: Dr Onofre? GI: Dr Alvarado Interventional: Dr Ayers Time/Duration: < week Symptom Onset: Sudden Symptom Course: Worsening Quality: Tightness, Cramping Severity Level: Severe Activities at Onset: Rest Context: Home (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 - Renal Hx Renal Disorder: Yes (L KIDNEY CYST,H/O LITHOTRYPSIES) Hx Kidney Stones: Yes - Endocrine/Metabolic Hx Endocrine Disorders: Yes Hx Hyperthyroidism: Yes - Hematological/Oncological Hx Blood Transfusions: Yes Hx Blood Transfusion Reaction: No - Integumentary Hx Dermatological Disorder: Yes Other/Comment: 10-04-17 sacral pressure ulcer stage 2 4x2 cm,with minimal serous drainage. Bilateral le edema pitting +4.Extending to abdominal area.Has ascites - Musculoskeletal/Rheumatological Hx Musculoskeletal Disorders: Yes Hx Falls: Yes Other/Comment: MS - Gastrointestinal Hx Gastrointestinal Disorders: Yes Other/Comment: ASCITES - Genitourinary/Gynecological Hx Genitourinary Disorders: Yes (nephrolithiasis) - Psychiatric Hx Psychophysiologic Disorder: Yes Hx Depression: Yes Hx Substance Use: No - Surgical History Hx Appendectomy: Yes Hx Cholecystectomy: Yes Hx Mastectomy: No - Anesthesia Hx Anesthesia Reactions: No Hx Malignant Hyperthermia: No - Suicidal Assessment Feels Threatened In Home Enviroment: No Family/Social History - Physician Review Nursing Documentation Reviewed: Yes Family/Social History: No Known Family HX Smoking Status: Former Smoker Hx Alcohol Use: No Hx Substance Use: No Hx Substance Use Treatment: No Allergies/Home Meds Allergies/Adverse Reactions: Allergies black pepper Allergy (Verified 10/28/17 18:13) ITCHING codeine Allergy (Verified 10/28/17 18:13) NAUSEA Patient states that it was due to tylenol with codeine. Patient takes codeine and percocets at home. Penicillins Allergy (Verified 10/28/17 18:13) SWELLING Sulfa (Sulfonamide Antibiotics) Allergy (Verified 10/28/17 18:13) RASH Home Medications: Home Meds Medication Instructions Recorded Confirmed Dextroamphetamine/Amphetamine 20 mg PO DAILY 10/28/17 10/28/17 [Adderall Xr 20 mg Capsule] Review of Systems - Review of Systems Constitutional: Fatigue, Weight Change Eyes: Normal ENT: Normal Respiratory: SOB Cardiovascular: Normal Gastrointestinal: Abdominal Pain Genitourinary Female: Normal Musculoskeletal: Other (b/l leg swelling) Skin: Normal Neurological: Dizziness Endocrine: Normal Hemo/Lymphatic: Normal Psychiatric: Normal Physical Exam Vital Signs Reviewed: Yes Vital Signs Temp Pulse Pulse Resp BP Pulse Ox 10/28/17 22:03 97.9 F 67 76 20 86/57 L 10/28/17 20:09 104/69 10/28/17 18:12 98.0 F 73 18 103/57 L 100 Temperature: Afebrile Blood Pressure: Hypotensive Pulse: Regular Respiratory Rate: Normal Appearance: Positive for: Uncomfortable, Cachectic, Other (alert/awake, uncomfortable, mild distress due to pain, cooperative, GCS = 15, oriented x 3, resting in bed) Pain Distress: Mild Mental Status: Positive for: Alert and Oriented X 3. No: Confused, Agitated - Systems Exam Head: Present: Atraumatic, Normocephalic, Other (bi-temporal wasting) Pupils: Present: PERRL, Other (no nystagmus, no photophobia, sclera anicteric, visual field intact b/l) Extroacular Muscles: Present: EOMI Conjunctiva: Present: Normal Ears: Present: Normal Mouth: Present: Dry, Other (fair dentitions, dry oral mucosa, no drooling/ stridor, no exudate/lesions, uvula/tongue are midline) Pharnyx: Present: Normal Nose (External): Present: Atraumatic Nose (Internal): Present: Normal Inspection Neck: Present: Normal Range of Motion, Trachea Midline, Other (intact ROM, no midline tenderness, no step off). No: Meningeal Signs, MIDLINE TENDERNESS, Paraspinal Tenderness Respiratory/Chest: Present: Wheezes, Decreased Breath Sounds, Tachypneic. No: Respiratory Distress, Accessory Muscle Use Cardiovascular: Present: Regular Rate and Rhythm, Normal S1, S2. No: Murmurs Abdomen: Present: Normal Bowel Sounds, Other (+ abd distention noted, no fluid- waves; +BS, soft; no guarding/rigidity/masses/rebound noted; thin female, no montgomery's sign, no mcburney's point tenderness). No: Tenderness Back: Present: Normal Inspection. No: CVA Tenderness, Midline Tenderness, Paraspinal Tenderness Upper Extremity: Present: Normal Inspection, Normal ROM, NORMAL PULSES, Neurovascularly Intact. No: Edema Lower Extremity: Present: Edema, Neurovascularly Intact, Other (+ 4/5 b/l lower ext pitting edema up to proximal thigh; + diffuse b/l leg tenderness on palpation; no gross deformities, decr ROM due to swelling, strength 4+/5 b/l). No: Deformity Neurological: Present: GCS=15, CN II-XII Intact, Speech Normal Skin: Present: Warm, Dry, Pale Psychiatric: Present: Alert, Oriented x 3 Medical Decision Making ED Course and Treatment: 10/28/17 18:56 Impression: abd ascites/dizziness/progressive sob; b/l leg swelling I have considered all differential diagnoses regarding patients chief medical complaints/clinical findings which include but are not limited to: abd ascites/ dizziness/progressive sob; b/l leg swelling Plan: -- Labs -- Chest X-ray -- Lasix -- Famotidine -- IV fluids -- X-ray of Left and Right foot -- US of Lower Extremity -- US of Abdomen -- Urinalysis -- Reassess and disposition Progress Notes: pt remained uncomfortable pt is making urine well, after lasix, pt Urinary output was documented close to 300cc of fluids pt's sob is stable, no acute complaints currently pt is awaiting further lab results due to patient's conditions/findings, will recommend patient for admission 10/28/17 21:[address] Onofre, who is aware and agrees with ED management plan ; AGREES with admission; As per request, will consult Dr. Alvarado, Dr. Guo and Dr. Ayers. 2200 due to difficulties for blood draw, resident will assist and obtain femoral stick pt is made aware of her medical results agrees with admission Re-evaluation Time: 22:00 Reassessment Condition: Improving,but remains with symptoms - Critical Care Critical Care Minutes: 30 minutes Critical Care Time: Excluding Proc Time Narrative Critical Care (Text): 10/30/17 22:39 critical care time: 30min, excluding procedure time, excluding time teaching residents/students/mid-level providers; including initial eval/diagnosis, diagnostic interpretation, re-eval, consultations, final disposition - Lab Interpretations Lab Results: Lab Results 10/28/17 20:30: Urine Color Yellow, Urine Appearance Slight-cloudy, Urine pH 6.0 , Ur Specific [place] >= 1.030, Urine Protein 30 H, Urine Glucose (UA) Negative , Urine Ketones Negative, Urine Blood Large H, Urine Nitrate Negative, Urine Bilirubin Negative, Urine Urobilinogen 0.2, Ur Leukocyte Esterase Small H, Urine RBC 5 - 10, Urine WBC 15 - 20, Ur Epithelial Cells 3 - 4, Urine Bacteria Mod, Urine Other Uyeast I have reviewed the lab results: Yes Interpretation: Abnormal lab values (+ low H/H; elevated LFTs; abnl UA) - RAD Interpretation Narrative RAD Interpretations (Text): 10/28/17 19:58 Preliminary results of lower extremity Ultrasound reviewed, shows NO DVT bilaterally. 10/28/17 21:11 US of Lower Extremity reviewed by radiologist, shows: FINDINGS: The visualized deep venous systems of both lower extremities are sonographically normal and compressible. Normal wave forms and augmentation are seen. There is no sonographic evidence for deep venous thrombosis in the visualized segments of both lower extremities. IMPRESSION: No sonographic evidence for deep venous thrombosis in the visualized segments of both lower extremities. 10/28/17 21:12 ABD U/S reviewed by radiologist, shows: FINDINGS: Liver: Liver is echogenic.There is hepatopedal flow in the main portal vein. Gallbladder: Gallbladder is surgically absent. Common bile duct: Common bile duct measures 6.5 mm in diameter. Pancreas: Pancreas is partially obscured by bowel gas Kidneys: Kidneys are poorly visualized. There is left renal cyst. There is no pelvocaliectasis. Spleen: Spleen is unremarkable. Aorta: Aorta and inferior vena cava could not be visualized. Inferior vena cava: See above. Free fluid: Present moderately large amount of ascites in the abdomen IMPRESSION: Large volume ascites; cholecystectomy, no ductal dilatation Radiology Orders: 10/28/17 18:51 ABDOMEN COMPLETE [US] Stat 10/28/17 18:53 FOOT LEFT 3 VIEWS ROUTINE [RAD] Stat FOOT RIGHT 3 VIEWS ROUTINE [RAD] Stat 10/28/17 18:54 DUPLEX LOWER EXTRM VEIN BILAT [US] Stat 10/28/17 18:55 CHEST TWO VIEWS (PA/LAT) [RAD] Stat Brood Station Manager: ED Physician, Radiologist - Medication Orders Current Medication Orders: Albumin Human (Albumin Human 25% (12.5 Gm/50 Ml)) 12.5 gm IV BID [facility] Last Admin: 10/30/17 18:04 Dose: 12.5 gm eMAR Start Stop Document 10/30/17 18:04 KL (Rec: 10/30/17 18:04 [id number]) Intravenous Solution Start Date 10/30/17 Start Time 18:04 Bisacodyl (Dulcolax) 10 mg RC DAILY [facility] Last Admin: 10/30/17 10:57 Dose: Not Given Non-Admin Reason: Patient Refused Buspirone HCl (Buspar) 5 mg PO BID [facility] PRN Reason: Protocol Last Admin: 10/30/17 18:04 Dose: 5 mg Behavioural Document 10/30/17 18:04 (Rec: 10/30/17 18:04 [id number] Maintenance Maintenance Dose Yes Re-Assess: Reassess Psych Meds Document 10/30/17 19:04 [email or web address] (Rec: 10/30/17 20:15 [email or web address] [id number]) Reassess Psych Med Effective Citalopram Hydrobromide (Celexa) 20 mg PO DAILY [facility] Last Admin: 10/30/17 10:54 Dose: 20 mg Enoxaparin Sodium (Lovenox) 30 mg SC Q12H [facility] PRN Reason: Protocol Last Admin: 10/30/17 10:53 Dose: 30 mg Subcutaneous Administrations Document 10/30/17 10:53 KL (Rec: 10/30/17 10:53 [id number]) Injection Site MAR Injection Site Right Abdomen Charges for Administration # of Subcutaneous Administrations 1 Fentanyl (Duragesic) 1 patch TD Q72H [facility] Last Admin: 10/29/17 01:38 Dose: Furosemide (Lasix) 40 mg IVP DAILY [facility] Last Admin: 10/30/17 13:45 Dose: 40 mg MAR Blood Pressure Document 10/30/17 13:45 KL (Rec: 10/30/17 13:46 [id number]) Blood Pressure Blood Pressure (100/60-150/90) 101/68 IVP Administration Document 10/30/17 13:45 KL (Rec: 10/30/17 13:46 [id number]) Charges for Administration # of IVP Administrations 1 Gabapentin (Neurontin) 300 mg PO TID [facility] PRN Reason: Protocol Last Admin: 10/30/17 18:04 Dose: 300 mg Behavioural Document 10/30/17 18:04 KL (Rec: 10/30/17 18:04 KL [id number]) Maintenance Maintenance Dose Yes Re-Assess: Reassess Psych Meds Document 10/30/17 19:04 [email or web address] (Rec: 10/30/17 20:16 [email or web address] [id number]) Reassess Psych Med Effective Loratadine (Claritin) 10 mg PO DAILY PRN PRN Reason: Allergy symptoms Adderall Xr 20 Mg Capsule 10 Mg ( Home Med) 10 mg PO DAILY [facility] Last Admin: 10/30/17 10:57 Dose: Ondansetron HCl (Zofran Inj) 4 mg IVP Q6H PRN PRN Reason: Nausea/Vomiting Last Admin: 10/30/17 13:46 Dose: 4 mg IVP Administration Document 10/30/17 13:46 (Rec: 10/30/17 13:46 KL [id number]) Charges for Administration # of IVP Administrations 1 Oxycodone/Acetaminophen (Percocet 10/325 Mg Tab) 1 tab PO Q6H PRN PRN Reason: Pain, moderate (4-7) Last Admin: 10/30/17 06:55 Dose: 1 tab MAR Pain Assessment Document 10/30/17 06:55 MS (Rec: 10/30/17 06:55 MS [id number]) Pain Reassessment Is this a pain reassessment? No Presence of Pain Presence of Pain Yes Pain Scale Used Pain Scale Used Numeric Location Pain Location Body Site Generalized Description Description Constant Intensity of Pain at present 7 Pain Behavior Moaning Alleviating Factors/Management Medication Techniques Position Change Relaxation Techniques Alleviating Factors Medication Pantoprazole Sodium (Protonix Ec Tab) 40 mg PO 0600 [facility] Last Admin: 10/30/17 05:07 Dose: 40 mg Polyethylene Glycol (Miralax) 17 gm PO DAILY [facility] Last Admin: 10/30/17 10:53 Dose: 17 gm Prednisolone Acetate (Pred Forte 1% Opht Susp) 1 ml OD Q8 [facility] Last Admin: 10/30/17 13:47 Dose: 1 drop Prednisolone Acetate (Pred Forte 1% Opht Susp) 1 ml OS Q12 [facility] Spironolactone (Aldactone) 50 mg PO DAILY [facility] Last Admin: 10/30/17 10:57 Dose: Not Given Non-Admin Reason: BP Parameters Not Met Discontinued Medications Fentanyl (Duragesic) 1 patch TD Q72H STA Stop: 10/29/17 11:34 Last Admin: 10/29/17 12:40 Dose: 1 patch MAR Patch Placement & Pain Document 10/29/17 12:40 KL (Rec: 10/29/17 12:40 KL [id number]) Patch Removal Removal of previous patch done? No Patch Placement Left, Right or Bilateral Left Pain Location Body Site Arm Furosemide (Lasix) 60 mg IVP STAT STA Stop: 10/28/17 18:53 Last Admin: 10/28/17 20:09 Dose: 60 mg MAR Blood Pressure Document 10/28/17 20:09 JUDY (Rec: 10/28/17 20:24 JUDY [id number]) Blood Pressure Blood Pressure (100/60-150/90) 104/69 IVP Administration Document 10/28/17 20:09 JUDY (Rec: 10/28/17 20:24 JUDY [id number]) Charges for Administration # of IVP Administrations 1 Gabapentin (Neurontin) 300 mg PO STAT STA PRN Reason: Protocol Stop: 10/29/17 06:06 Last Admin: 10/29/17 06:17 Dose: 300 mg Behavioural Document 10/29/17 06:17 GC (Rec: 10/29/17 06:17 GC [id number]) Maintenance Maintenance Dose Yes Nonmedicinal Nonmedicinal Interventions Redirect Therapeutic Communication Activity Behavior Behavior for Medication: Anxiety Famotidine (Pepcid 20mg/50ml Premix) 20 mg in 50 mls @ 100 mls/hr IVPB STAT STA Stop: 10/28/17 19:22 Last Admin: 10/28/17 20:09 Dose: 100 mls/hr eMAR Start Stop Document 10/28/17 20:09 JUDY (Rec: 10/28/17 20:09 JUDY [id number]) Intravenous Solution Start Date 10/28/17 Start Time 20:09 End Date 10/28/17 End time 20:39 Total Infusion Time 30 Sodium Chloride (Sodium Chloride 0.9%) 1,000 mls @ 75 mls/hr IV .[id number] JENNY Last Admin: 05/04/18 20:08 Dose: 75 mls/hr eMAR Start Stop Document 10/28/17 20:08 JUDY (Rec: 10/28/17 20:09 JUDY [id number]) Intravenous Solution Start Date 10/28/17 Start Time 20:09 Sodium Chloride (Sodium Chloride 0.9%) 250 mls @ 999 mls/hr IV .Q16M STA Stop: 10/28/17 20:43 Last Admin: 10/28/17 20:30 Dose: 999 mls/hr eMAR Start Stop Document 10/28/17 20:30 JUDY (Rec: 10/28/17 20:53 JUDY [id number]) Intravenous Solution Start Date 10/28/17 Start Time 20:30 End Date 10/28/17 End time 20:46 Total Infusion Time 16 Morphine Sulfate (Morphine) 2 mg IVP STAT STA Stop: 10/28/17 23:06 Last Admin: 10/28/17 23:50 Dose: 2 mg BANNER Pain Assessment Document 10/28/17 23:50 RG (Rec: 10/28/17 23:50 RG [id number]) Pain Reassessment Is this a pain reassessment? Yes Sleep Is patient sleeping during reassessment? No Presence of Pain Presence of Pain Yes IVP Administration Document 10/28/17 23:50 RG (Rec: 10/28/17 23:50 RG [id number]) Charges for Administration # of IVP Administrations 1 Re-Assess: BANNER Pain Assessment Document 10/29/17 00:50 GC (Rec: 10/29/17 01:39 GC [id number]) Pain Reassessment Is this a pain reassessment? No Sleep Is patient sleeping during reassessment? No Presence of Pain Presence of Pain Yes Non-Formulary Medication (Dextroamphetamine/Amphetamine [Adderall Xr 20 Mg Capsule]) 20 mg PO DAILY JENNY Last Admin: 10/29/17 11:01 Dose: Ondansetron HCl (Zofran Inj) 4 mg IVP STAT STA Stop: 10/28/17 20:29 Last Admin: 10/28/17 20:55 Dose: 4 mg IVP Administration Document 10/28/17 20:55 JUDY (Rec: 10/28/17 20:55 JUDY [id number]) Charges for Administration # of IVP Administrations 1 Prednisolone Acetate (Pred Forte 1% Opht Susp) 1 ml OS BID JENNY Disposition/Present on Arrival - Present on Arrival Any Indicators Present on Arrival: No History of DVT/PE: No History of Uncontrolled Diabetes: No Urinary Catheter: Yes History of Decub. Ulcer: No History Surgical Site Infection Following: None - Disposition Have Diagnosis and Disposition been Completed?: Yes Diagnosis: Ascites, Elevated LFTs, Shortness of breath, Anemia Disposition: HOSPITALIZED Disposition Time: 21:30 Patient Plan: Admission Patient Problems: Current Active Problems Problem Status Onset Anemia Acute Elevated LFTs Acute Ascites Acute Shortness of breath Acute Condition: FAIR
[2017-10-28] MEDS ORDERED: Sodium Chloride 0.9% 250 ML IV STA (20:28)
--- NOTE | 2017-10-28 20:36 | US ---
HISTORY: Leg pain and swelling. Evaluate for DVT PHYSICIAN(S): Kamlesh Ayers MD. TECHNIQUE: Duplex sonography and color-flow Doppler with graded compression were used to evaluate the deep venous systems of both lower extremities. The exam is limited by edema. FINDINGS: The visualized deep venous systems of both lower extremities are sonographically normal and compressible. Normal wave forms and augmentation are seen. There is no sonographic evidence for deep venous thrombosis in the visualized segments of both lower extremities. IMPRESSION: No sonographic evidence for deep venous thrombosis in the visualized segments of both lower extremities.
--- NOTE | 2017-10-28 21:00 | US ---
EXAM: US Abdomen Complete EXAM DATE/TIME: 10/28/2017 6:51 PM CLINICAL HISTORY: 62 years old, female; Pain; Abdominal pain; Prior surgery; Surgery date: 6+ months; Additional info: Abd distention, ascites TECHNIQUE: Real-time ultrasound of the abdomen (complete) with image documentation. COMPARISON: US - PARACENTESIS 2017-10-07 13:50 FINDINGS: Liver: Liver is echogenic.There is hepatopedal flow in the main portal vein. Gallbladder: Gallbladder is surgically absent. Common bile duct: Common bile duct measures 6.5 mm in diameter. Pancreas: Pancreas is partially obscured by bowel gas Kidneys: Kidneys are poorly visualized. There is left renal cyst. There is no pelvocaliectasis. Spleen: Spleen is unremarkable. Aorta: Aorta and inferior vena cava could not be visualized. Inferior vena cava: See above. Free fluid: Present moderately large amount of ascites in the abdomen IMPRESSION: Large volume ascites; cholecystectomy, no ductal dilatation
[2017-10-28 21:06] LABS: URINE BILIRUBIN NEGATIVE (NEGATIVE); URINE BLOOD LARGE (NEGATIVE); URINE GLUCOSE (UA) NEGATIVE (NEGATIVE); URINE LEUKOCYTE ESTERASE SMALL Leu/uL (NEGATIVE); URINE PROTEIN 30 mg/dL (<30 mg/dL); URINE UROBILINOGEN 0.2 E.U./dL (<1 E.U./dL)
[2017-10-28 21:14] LABS: URINE APPEARANCE SLIGHT-CLOUDY (CLEAR); URINE COLOR YELLOW (YELLOW)
[2017-10-28 21:20] LABS: URINE BACTERIA MOD (NEG); URINE WBC 15 - 20 /hpf (0-6)
[2017-10-28] MEDS ORDERED: Morphine 4 mg/ml ISec IVP STA (23:05)
[2017-10-28 23:59] LABS: BASO # 0.02 K/mm3 (0.0-2.0); BASO % 0.3 % (0.0-3.0); EOS # 0.1 (0.0-0.7); EOS % 0.8 % (1.5-5.0); GRAN # 4.3 (1.4-6.5); GRAN % 69.5 % (50.0-68.0); LYMPH # 1.5 (1.2-3.4); LYMPH % 23.9 % (22.0-35.0); MEAN CELL VOLUME 93.6 fl (80.0-105.0); MEAN CORPUSCULAR HEMOGLOBIN 31.8 pg (25.0-35.0); MEAN PLATELET VOLUME 8.6 fl (7.0-11.0); MONO # 0.3 (0.1-0.6); MONO % 5.5 % (1.0-6.0); RBC 3.14 10^6/uL (3.5-6.1); RED CELL DISTRIBUTION WIDTH 19.8 % (11.5-14.5); WHITE BLOOD COUNT 6.2 10^3/ul (4.5-11.0)
[2017-10-29 00:14] LABS: ALB/GLOB RATIO 0.8 (1.1-1.8); ALBUMIN 1.8 g/dL (3.0-4.8); ALT/SGPT 224 U/L (7-56); AST/SGOT 216 U/L (14-36); BLOOD UREA NITROGEN 18 mg/dL (7-21); CALCIUM 7.2 mg/dL (8.4-10.5); GFR AFRICAN-AMERICAN > 60; GFR NON-AFRICAN AMERICAN > 60; LIPASE 158 U/L (23-300)
[2017-10-29 00:17] LABS: INR 1.06 (0.93-1.08); PROTHROMBIN TIME 12.1 SECONDS (9.4-12.5)
[2017-10-29] MEDS: Enoxaparin 30 mg Syringe SC SCH ×3 (00:30→22:42)
[2017-10-29] MEDS: Oxycodone/Acetaminophen 10/325 mg Tab PO PRN ×2 (01:19→23:55)
[2017-10-29] MEDS: Albumin Human 25% (12.5 gm/50 ml) IV SCH ×3 (01:25→17:40)
[2017-10-29 02:05] VITALS: BMI 18.6
[2017-10-29] MEDS: Pantoprazole 40 mg EC Tab PO SCH (05:10)
--- NOTE | 2017-10-29 05:38 | HP ---
HISTORY OF PRESENT ILLNESS: Patient is a 62-year-old white female who was found to have distended abdomen with some respiratory discomfort and increasing leg swelling , so was transferred to emergency room for further evaluation. Patient denies any fever or chills. No history of hemoptysis. No hematemesis. PAST MEDICAL HISTORY: Patient has significant past medical history for: 1. Gastric bypass. 2. She has chronic anemia and used to get multiple iron infusion and has been receiving blood transfusions, recently found to have heterozygous gene positive for hemochromatosis. 3. Cirrhosis of liver, probably secondary to hemochromatosis. 4. Status post paracentesis, negative for malignancy. 5. History of hypotension. 6. History of multiple sclerosis. 7. Sarcoidosis. ALLERGIES: SHE IS ALLERGIC TO BLACK PEPPER, CODEINE, PENICILLIN, SULFA. MEDICATIONS IN THE [facility]: She is on Adderall 20 mg daily, loratadine 10 mg daily, MiraLax 17 g daily, Protonix 40 daily, Duragesic patch 25 mcg every 72 hours, Neurontin 300 mg three times a day, Lovenox 30 mg subcu every 12, Celexa 20 mg daily, Dulcolax 10 mg rectally p.r.n. SOCIAL HISTORY: She is single. She has 3 grown up boys. She was a heavy smoker and history of alcohol use in the past. REVIEW OF SYSTEMS: Significant for generalized weakness, difficulty walking, increasing bilateral leg swelling, increasing abdominal girth. PHYSICAL EXAMINATION: GENERAL: She is awake, alert, well nourished, looks pale. VITAL SIGNS: She is afebrile. Pulse 73, respirations 18, blood pressure 103/57. LUNGS: Bilaterally decreased breath sounds at the bases. HEART: S1 and S2 audible. ABDOMEN: Distended with fluid thrill. EXTREMITIES: Bilateral leg +4 edema. NEUROLOGIC: She is awake and alert, able to communicate. LABORATORY EXAMINATION: Urine has large blood, small leukocyte, wbc's 15 to 20. CBC and CMP are pending. ASSESSMENT: 1. Cirrhotic ascites, symptomatic. 2. Bilateral leg swelling. 3. Cirrhosis of the liver. 4. Hypotension. 5. Hyperlipidemia. 6. Hypoalbuminemia. 7. History of gastric bypass. 8. Chronic anemia. PLAN: 1. We will admit the patient, needs urgent paracentesis, therapeutic . 2. Multiple sclerosis. 3. Sarcoidosis. 4. Follow up CBC and CMP in a.m. Rad Onofre MD
--- NOTE | 2017-10-29 06:30 | CP.PCM.PN ---
Subjective - Date & Time of Evaluation Date of Evaluation: 10/29/17 Time of Evaluation: 06:27 - Subjective Subjective: S: Nurse asked to give something for abdominal pain. Had received protonix. Was still having pain, generalized. Medical record was reviewed. Neurontin 300 mg PO was given. Went to see patient . She is resitng comfortably. O: Last Vital Signs 3 Temp 98.2 F 10/29/17 06:00 Pulse 66 10/29/17 06:00 Resp 19 10/29/17 06:00 BP 95/60 L 10/29/17 06:00 Pulse Ox 96 10/29/17 06:00 Asleep. Not in distress. LUNGS:Normal breathing pattern. A:Diffuse abdominal pain- resolved. Low blood pressure reading. P:Neurontin 300 mg PO x 1. Monitor blood pressure. Objective - Vital Signs/Intake and Output Vital Signs (last 24 hours): Temp Pulse Resp BP Pulse Ox 98.2 F 66 19 95/60 L 96 10/29/17 06:00 10/29/17 06:00 10/29/17 06:00 10/29/17 06:00 10/29/17 06:00 Intake and Output: 10/28/17 10/29/17 18:59 06:59 Intake Total 540 Output Total 50 Balance 490 - Medications Medications: Current Medications Albumin Human (Albumin Human 25% (12.5 Gm/50 Ml)) 12.5 gm IV BID [facility] Last Admin: 10/29/17 01:25 Dose: 12.5 gm Bisacodyl (Dulcolax) 10 mg RC DAILY [facility] Buspirone HCl (Buspar) 5 mg PO BID [facility] PRN Reason: Protocol Citalopram Hydrobromide (Celexa) 20 mg PO DAILY [facility] Enoxaparin Sodium (Lovenox) 30 mg SC Q12H [facility] PRN Reason: Protocol Last Admin: 10/29/17 00:30 Dose: 30 mg Fentanyl (Duragesic) 1 patch TD Q72H [facility] Last Admin: 10/29/17 01:38 Dose: Not Given Furosemide (Lasix) 40 mg IVP DAILY [facility] Gabapentin (Neurontin) 300 mg PO TID [facility] PRN Reason: Protocol Loratadine (Claritin) 10 mg PO DAILY PRN PRN Reason: Allergy symptoms Non-Formulary Medication (Dextroamphetamine/Amphetamine [Adderall Xr 20 Mg Capsule]) 20 mg PO DAILY [facility] Oxycodone/Acetaminophen (Percocet 10/325 Mg Tab) 1 tab PO Q6H PRN PRN Reason: Pain, moderate (4-7) Last Admin: 10/29/17 01:19 Dose: 1 tab Pantoprazole Sodium (Protonix Ec Tab) 40 mg PO 0600 [facility] Last Admin: 10/29/17 05:10 Dose: 40 mg Polyethylene Glycol (Miralax) 17 gm PO DAILY [facility] Spironolactone (Aldactone) 50 mg PO DAILY [facility] - Labs Labs: 10/28/17 23:50 10/28/17 23:50 PT 12.1 SECONDS (9.4-12.5) 10/28/17 23:50 INR 1.06 (0.93-1.08) 10/28/17 23:50 APTT 35.0 Seconds (25.1-36.5) 10/28/17 23:50
[2017-10-29 08:09] LABS: ALB/GLOB RATIO 0.8 (1.1-1.8); ALBUMIN 1.9 g/dL (3.0-4.8); ALT/SGPT 207 U/L (7-56); AST/SGOT 193 U/L (14-36); BLOOD UREA NITROGEN 20 mg/dL (7-21); CALCIUM 7.3 mg/dL (8.4-10.5); GFR AFRICAN-AMERICAN > 60; GFR NON-AFRICAN AMERICAN > 60
[2017-10-29] MEDS ORDERED: [UNRECOGNIZED DRUG - OTHER] PO SCH (10:00)
[2017-10-29] MEDS ORDERED: DEXTROAMPHETAMINE PO SCH (10:00)
[2017-10-29] MEDS ORDERED: AMPHETAMINE PO SCH (10:00)
--- NOTE | 2017-10-29 10:01 | RAD ---
HISTORY: weakness, sob COMPARISON: 10/04/2017 TECHNIQUE: Chest PA and lateral FINDINGS: LUNGS: No active pulmonary disease. PLEURA: No significant pleural effusion identified. No pneumothorax apparent. CARDIOVASCULAR: Normal. OSSEOUS STRUCTURES: No significant abnormalities. VISUALIZED UPPER ABDOMEN: Normal. OTHER FINDINGS: None. IMPRESSION: No active disease.
[2017-10-29] MEDS: POLYETHYLENE GLYCOL 3350 17 GM/Dose PACKET PO SCH (11:01)
--- NOTE | 2017-10-29 11:02 | RAD ---
PROCEDURE: Left Foot Radiographs. HISTORY: foot pain COMPARISON: None. FINDINGS: BONES: Normal. No fracture. JOINTS: Normal. SOFT TISSUES: Normal. OTHER FINDINGS: None. IMPRESSION: Normal left foot radiographs.
--- NOTE | 2017-10-29 11:04 | RAD ---
PROCEDURE: Right Foot Radiographs. HISTORY: foot pain COMPARISON: None. FINDINGS: BONES: Normal. No fracture. JOINTS: Degenerative changes are seen in the 1st MTP joint without angulation SOFT TISSUES: Normal. OTHER FINDINGS: None. IMPRESSION: Degenerative changes in the 1st MTP joint. No acute findings
--- NOTE | 2017-10-29 13:48 | PN ---
DATE: 10/29/2017 SUBJECTIVE: The patient is 63-year-old seen and examined, lying in bed, seems to be comfortable. No back pain. Complain of generalized body aches and pain because of her multiple sclerosis, asking me to increase the dose of fentanyl patch. PHYSICAL EXAMINATION VITAL SIGNS: She is afebrile, pulse 64, respirations 19, blood pressure 95/60. LUNGS: Bilateral fair airflow. No rhonchi or crackle. HEART: S1 and S2 audible. ABDOMEN: Soft. Has ascites with minimal fluid thrill. EXTREMITIES: Bilateral legs +2 edema. She has stage IV sacral decubitus. LABORATORY EXAM: WBC 6.2, hemoglobin 10, hematocrit 29.4, platelet 183. Chemistry: Sodium 140, potassium 3.8, chloride 107, CO2 of 28, BUN 20, creatinine 0.4, blood sugar of 66. Has AST 193, ALT 207, alkaline phosphatase is 196. Urinalysis shows large blood, small leukocytes, 15 to 20 WBCs. Bilateral leg Doppler, no sonographic evidence of deep venous thrombosis in the visualized segment of lower extremities. X-ray of chest has no active disease. ASSESSMENT AND PLAN: 1. Increasing ascites. 2. Bilateral leg edema. 3. Abnormal liver function tests. 4. Status post gastric sleeve. 5. Chronic anemia. 6. Cirrhosis of liver, etiology still unclear. 7. History of depression. 8. History of malnutrition and weight loss. 9. Left arm deep venous thrombosis. PLAN: I will continue patient on diuretic. We will continue her on albumin. Continue her on stool softeners. I discussed with Dr. Alvarado. The patient need a PET scan to rule out any underlying occult malignancies with digital markers of ovarian and pancreatic carcinoma, they were borderline high. However, they are nonspecific. We will continue to diurese the patient. I will talk to Dr. Alvarado if there is a need for paracentesis or not. She seems to be doing well with IV diuretics for now. Rad Onofre MD
[2017-10-30] MEDS: Pantoprazole 40 mg EC Tab PO SCH (05:07)
--- NOTE | 2017-10-30 06:53 | PN ---
DATE: 10/30/2017 HISTORY OF PRESENT ILLNESS: Ms. Mclaughlin is a 62-year-old female admitted to the hospital with respiratory distress and increasing ascites. She was recently diagnosed with cirrhosis of liver with therapeutic paracentesis. She has been treated with diuresis. She also had multiple sclerosis. No bleeding from any site seen status post gastric bypass surgery. PAST MEDICAL HISTORY: Chronic anemia, cirrhosis of liver, hypotension, multiple sclerosis, sarcoidosis, hemochromatosis status post gastric bypass surgery. ALLERGIES: CODEINE, PENICILLIN, SULFA. HOME MEDICATIONS: Adderall 20 mg daily, loratadine 10 mg daily, MiraLax 17 g daily, Protonix 40 daily, Duragesic patch 25 mcg every 72 hours, Neurontin 300 mg three times a day, Lovenox 30 subcu every 12, Celexa 20 daily, Dulcolax 10 mg daily. PAST SURGICAL HISTORY: Gastric bypass surgery. SOCIAL HISTORY: History of smoking, heavy alcohol abuse in the past. REVIEW OF SYSTEMS: Generalized weakness, difficulty in walking, increased abdominal girth. Respiratory distress. Rest of 12-point review of systems reviewed and negative. PHYSICAL EXAMINATION GENERAL: Awake, alert and oriented. VITAL SIGNS: Stable. Temperature 98.7, heart rate 70 per minute, respiratory rate 18 per minute, blood pressure 103/57. HEENT: Pallor positive. LUNGS: Air entry present and equal bilaterally. HEART: S1 and S2 normal. No murmur. No gallop. ABDOMEN: Distended. Fluid present. EXTREMITIES: Bilateral 4+ edema. NEUROLOGIC: Awake, alert and oriented x3. LABORATORY DATA: White count 6.2, hemoglobin 10, hematocrit 29.4, platelet count 183. Sodium 140, potassium 3.8, creatinine 0.4, calcium 7.3, AST 193, ALT 207, alkaline phosphatase 196. ASSESSMENT: 1. Cirrhosis of liver. 2. Ascites. 3. Multiple sclerosis. 4. Status post gastric bypass surgery. 5. Hemachromatosis. PLAN: She is currently being diuresed, receiving albumin twice a day. Currently on Lovenox 30 mg subcu every 12 hours. She is on Fentanyl patch for chronic pain, Lasix 40 mg daily, Neurontin 300 mg p.o. b.i.d., Claritin 10 mg daily, Zofran p.r.n., Percocet p.r.n., Aldactone 50 mg daily. GI consultation, Dr. Alvarado, requested. Aria Merrill MD
[2017-10-30] MEDS: Oxycodone/Acetaminophen 10/325 mg Tab PO PRN ×2 (06:55→23:24)
[2017-10-30 07:23] LABS: BASO # 0.02 K/mm3 (0.0-2.0); BASO % 0.3 % (0.0-3.0); EOS % 0.4 % (1.5-5.0); GRAN # 4.84 (1.4-6.5); HEMOGLOBIN 9.7 g/dL (12.0-16.0); LYMPH # 1.7 (1.2-3.4); LYMPH % 24.3 % (22.0-35.0); MEAN CELL VOLUME 95.7 fl (80.0-105.0); MEAN CORPUSCULAR HEMOGLOBIN 31.8 pg (25.0-35.0); MEAN CORPUSCULAR HGB CONC 33.2 g/dl (31.0-37.0); MEAN PLATELET VOLUME 8.9 fl (7.0-11.0); MONO # 0.4 (0.1-0.6); RBC 3.05 10^6/uL (3.5-6.1)
[2017-10-30 07:57] LABS: ALB/GLOB RATIO 0.9 (1.1-1.8); ALBUMIN 1.9 g/dL (3.0-4.8); ALT/SGPT 224 U/L (7-56); AST/SGOT 291 U/L (14-36); BLOOD UREA NITROGEN 21 mg/dL (7-21); CALCIUM 7.4 mg/dL (8.4-10.5); GFR AFRICAN-AMERICAN > 60; GFR NON-AFRICAN AMERICAN > 60
[2017-10-30] MEDS: Albumin Human 25% (12.5 gm/50 ml) IV SCH ×2 (10:53→18:04)
[2017-10-30] MEDS: POLYETHYLENE GLYCOL 3350 17 GM/Dose PACKET PO SCH (10:53)
[2017-10-30] MEDS: Enoxaparin 30 mg Syringe SC SCH ×2 (10:53→23:22)
[2017-10-30] MEDS: ADDERALL 10 MG PO SCH (10:57)
[2017-10-30] MEDS ORDERED: PrednisoLONE 1% Opht Susp(5 ml) OS SCH (11:59)
[2017-10-30] MEDS: PrednisoLONE 1% Opht Susp(5 ml) OD SCH ×2 (13:47→23:23)
[2017-10-30] MEDS: PrednisoLONE 1% Opht Susp(5 ml) OS SCH (23:24)
[2017-10-31] MEDS: PrednisoLONE 1% Opht Susp(5 ml) OD SCH ×3 (05:26→22:28)
[2017-10-31] MEDS: Pantoprazole 40 mg EC Tab PO SCH (05:26)
[2017-10-31] MEDS: Oxycodone/Acetaminophen 10/325 mg Tab PO PRN ×2 (08:47→15:55)
--- NOTE | 2017-10-31 09:35 | PQF MALNUT ---
This form is a permanent part of the medical record Clarification of your documentation is requested to better reflect the severity of illness and intensity of treatment of your patient. Indicators present Admitted hx cirrhosis w/ ascites & hypoalbuminemia BMI- 18.4. T-protein- 4.1, Alb- 1.8 being treated w/ IV Albumin. Please specify Type & severity of malnutrition POA [x] Cachexia (due to severe malnutrition) [x] Albumin < 2.8 [] Decreased Pre-albumin [x] Dietary Consult [x] Provider documentation reflects BMI of: []_ [x] Low serum proteins T-Protein- 4.1 [] Documented weight loss [] Inability to consume adequate caloric intake [x] Anorexic [] Other: [] Location in the medical record that reflects the above clinical findings: [x] H& P, Admission Labs, Treatment Provided: [x] IV Albumin, Dietary consult PHYSICIAN'S RESPONSE Based on your medical judgment of the clinical indicators outlined above, are you treating this patient for a known or suspected: Type of Malnutrition Severity [] Mild [] Moderate [x] Severe [] Protein calorie [] Mild [] Moderate [] severe [] Other, please indicate: []_ [] If Unable to Determine, please check the box, sign and date. Present On Admission (POA) Indicator: [x] Present at the time of admission [] Not present at the time of admission [] Clinically Undetermined In responding to this query, please exercise your independent professional judgment. The fact that a question is asked does not imply that any particular answer is desired or expected. Thank you for your clarification on this documentation. If you have any questions please call:[ ] [phone] * Thank you, [ ]Laney Teixeira RN CDS data librarian Malnutrition Malnutrition results from an imbalance between the body's intake of nutrients and the body's use of nutrients to fuel energy expenditure. Malnutrition may be described as mild, moderate or severe. There are variations in clinical indicators, lab values and risk factors with each type and degree. When reviewing the nutritional status of the client, the entire clinical picture should be assessed and taken into consideration rather than a focus on a single laboratory value. Mild Malnutrition: patient's weight is noted at 85-95% of normal body weight; BMI 18-18.9; serum albumin 3.0-3.4; total lymphocyte count 5027-7590. Moderate Malnutrition: patient's weight is noted at 75-85% of normal body weight ; BMI 16-17.9; serum albumin 2.4-3.0; total lymphocyte count 800-1500. Severe Malnutrition: patient's weight is noted at <75% of normal body weight, BMI <16, serum albumin <2.4, total lymphocyte count <800, abnormally low VLDL/ LDL levels, creatinine <0.6, BUN <8, cholesterol <160. Other clinical indicators include: loss of subq fat, muscle wasting of the extremities, skin lesions, decubitus ulcers, hair loss, lethargy, constipation, decreased pulse/ respiratory rates, relative hypotension, hepatomegaly d/t fat infiltration, poor wound healing.~~~~~~ Risk: poor intake d/t food avoidance or NPO status for >7 days, protracted nutritional losses from malabsorption states, hypermetabolic state such as sepsis, prolonged fever, extensive trauma or szymanski, alcohol/drug abuse, advanced age, CKD, trouble chewing or swallowing, some medications, depression/ social isolation, special diets such as low protein Treatment: dietary consultation, protein-calorie dietary supplementation, daily weights, PEG tube, psychiatric consultation, appetite stimulants (Megace). [employer] Principles of Internal Medicine, 17th edition, chapters 9, 72 and 234. The [employer] Nutritional Support Core Curriculum, 2007 MTDD
[2017-10-31] MEDS: ADDERALL 10 MG PO SCH (10:56)
[2017-10-31] MEDS: Enoxaparin 30 mg Syringe SC SCH ×2 (10:58→22:26)
[2017-10-31] MEDS: POLYETHYLENE GLYCOL 3350 17 GM/Dose PACKET PO SCH (10:58)
[2017-10-31] MEDS: PrednisoLONE 1% Opht Susp(5 ml) OS SCH ×2 (11:00→22:28)
[2017-10-31] MEDS: Albumin Human 25% (12.5 gm/50 ml) IV SCH ×3 (11:14→17:58)
[2017-10-31 13:00] LABS: ALB/GLOB RATIO 1.1 (1.1-1.8); ALBUMIN 2.3 g/dL (3.0-4.8); ALT/SGPT 153 U/L (7-56); AST/SGOT 114 U/L (14-36); BLOOD UREA NITROGEN 21 mg/dL (7-21); CALCIUM 7.5 mg/dL (8.4-10.5); GFR AFRICAN-AMERICAN > 60; GFR NON-AFRICAN AMERICAN > 60
--- NOTE | 2017-10-31 15:50 | PN ---
DATE: 10/31/2017 SUBJECTIVE: The patient is a 62-year-old, complains of generalized aches and pains, complains of feeling weak and tired, states the pain medicine is not helping. Scheduled for paracentesis today. She is also scheduled to have PET scan done as outpatient. Seems to be doing okay. Blood pressure is running low because of third-spacing. PHYSICAL EXAMINATION: VITAL SIGNS: She is afebrile, pulse 66, respirations 18, blood pressure 96/65. LUNGS: Bilateral fair air flow. No rhonchi or crackle. HEART: S1, S2 audible. ABDOMEN: Distended, has fluid thrill. EXTREMITIES: Bilateral leg edema legs have improved. NEUROLOGIC: She is awake, alert and able to communicate. LABORATORY EXAM: No new lab available today. However, her sacral wound is growing Staph aureus and urine has . Abdominal exam shows ascites. Leg Doppler negative for DVT. ASSESSMENT: 1. Cirrhosis of liver and cirrhotic ascites. 2. Malnutrition. 3. Significant weight loss. 4. Sacral decubitus. 5. Chronic anemia. PLAN: We will continue patient on albumin, diuretics. We will discontinue telemetry. ID consult by Dr. Latif. Local wound care for the sacral decubitus also . Patient is scheduled for paracentesis today. Rad Onofre MD
--- NOTE | 2017-10-31 15:51 | CP.PCM.PN ---
<Jenny,Kovil V - Last Filed: 11/01/17 00:38> Objective - Vital Signs/Intake and Output Vital Signs (last 24 hours): Temp Pulse Resp BP Pulse Ox 98.4 F 66 18 101/72 98 10/31/17 18:00 10/31/17 18:00 10/31/17 18:00 10/31/17 18:00 10/31/17 06:00 Intake and Output: 10/31/17 11/01/17 18:59 06:59 Intake Total 240 Output Total 500 Balance -260 - Medications Medications: Current Medications Albumin Human (Albumin Human 25% (12.5 Gm/50 Ml)) 12.5 gm IV TID [facility] Last Admin: 10/31/17 17:58 Dose: 12.5 gm Amylase (Pancrease 10027 U-5000 [id number] U) 5,000 unit PO ACTID [facility] Bisacodyl (Dulcolax) 10 mg RC DAILY [facility] Last Admin: 10/31/17 10:56 Dose: 10 mg Buspirone HCl (Buspar) 5 mg PO BID [facility] PRN Reason: Protocol Last Admin: 10/31/17 17:57 Dose: 5 mg Citalopram Hydrobromide (Celexa) 20 mg PO DAILY [facility] Last Admin: 10/31/17 10:56 Dose: 20 mg Collagenase (Santyl) 0 gm TOP DAILY [facility] Enoxaparin Sodium (Lovenox) 30 mg SC Q12H [facility] PRN Reason: Protocol Last Admin: 10/31/17 22:26 Dose: 30 mg Fentanyl (Duragesic) 1 patch TD Q72H [facility] Last Admin: 10/31/17 22:26 Dose: 1 patch Furosemide (Lasix) 40 mg IVP DAILY [facility] Last Admin: 10/31/17 10:56 Dose: Not Given Gabapentin (Neurontin) 300 mg PO TID [facility] PRN Reason: Protocol Last Admin: 10/31/17 17:57 Dose: 300 mg Loratadine (Claritin) 10 mg PO DAILY PRN PRN Reason: Allergy symptoms Mupirocin (Bactroban Ointment) 0 gm TOP BID [facility] Last Admin: 10/31/17 19:55 Dose: Not Given Adderall Xr 10 Mg ((Home Med)) 10 mg PO DAILY [facility] Last Admin: 05/07/18 10:56 Dose: Not Given Ondansetron HCl (Zofran Inj) 4 mg IVP Q6H PRN PRN Reason: Nausea/Vomiting Last Admin: 10/30/17 13:46 Dose: 4 mg Oxycodone/Acetaminophen (Percocet 10/325 Mg Tab) 1 tab PO Q4H PRN PRN Reason: Pain, moderate (4-7) Last Admin: 11/01/17 00:31 Dose: 1 tab Pantoprazole Sodium (Protonix Ec Tab) 40 mg PO 0600 [facility] Last Admin: 10/31/17 05:26 Dose: 40 mg Polyethylene Glycol (Miralax) 17 gm PO DAILY [facility] Last Admin: 10/31/17 10:58 Dose: 17 gm Prednisolone Acetate (Pred Forte 1% Opht Susp) 1 ml OD Q8 [facility] Last Admin: 10/31/17 22:28 Dose: 1 drop Prednisolone Acetate (Pred Forte 1% Opht Susp) 1 ml OS Q12 [facility] Last Admin: 10/31/17 22:28 Dose: 1 drop Spironolactone (Aldactone) 50 mg PO DAILY [facility] Last Admin: 10/31/17 10:56 Dose: Not Given - Labs Labs: 10/30/17 06:30 10/31/17 12:30 PT 12.1 SECONDS (9.4-12.5) 10/28/17 23:50 INR 1.06 (0.93-1.08) 10/28/17 23:50 APTT 35.0 Seconds (25.1-36.5) 10/28/17 23:50 Attending/Attestation - Attestation I have personally seen and examined this patient.: Yes I have fully participated in the care of the patient.: Yes I have reviewed all pertinent clinical information, including history, physical exam and plan: Yes Notes (Text): This is an addendum to GI progress report dictated by the Driveway Attendant.The patient was seen and examined earlier. Medical records, lab studies, imagings were reviewed. Last 24 hours events reviewed. Agreed with the above treatment plan as outlined in Driveway Attendant 's notes the with the addition of the following On examination patient appears cachectic Abdomen distended with ascites present Previous workup reviewed Duodenal biopsies negative MRI of the pancreas is neg for pancreatic lesions P is normal Status post bariatric surgery. No bypass noticed Etiology of small absorption Would consider empiric pancreatic enzyme Would consider TPN/ppn Discussed with the patient's I waiting for PET scan Elevated LFT slow improvement present need close monitoring of LFT with the TPN 11/01/17 00:39 <Marley Fam J - Last Filed: 11/01/17 11:53> Subjective - Date & Time of Evaluation Date of Evaluation: 10/31/17 Time of Evaluation: 12:00 - Subjective Subjective: Seen and examined at the bedside earlier today, chart review. Patient reports diarrhea but reports that this contrary to taking the MiraLAX which she has not taken today. Although reports that she does have to have bowel movement after eating. No reports of any melena or bright red blood per rectum. Denies nausea , vomiting, or abdominal pain. Objective - Vital Signs/Intake and Output Vital Signs (last 24 hours): Temp Pulse Resp BP Pulse Ox 98.3 F 75 18 92/65 L 98 10/31/17 12:00 10/31/17 12:00 10/31/17 12:00 10/31/17 12:00 10/31/17 06:00 Intake and Output: 10/31/17 10/31/17 06:59 18:59 Intake Total 480 Output Total 700 Balance -220 - Medications Medications: Current Medications Albumin Human (Albumin Human 25% (12.5 Gm/50 Ml)) 12.5 gm IV TID [facility] Bisacodyl (Dulcolax) 10 mg RC DAILY [facility] Last Admin: 10/31/17 10:56 Dose: 10 mg Buspirone HCl (Buspar) 5 mg PO BID [facility] PRN Reason: Protocol Last Admin: 10/31/17 10:54 Dose: 5 mg Citalopram Hydrobromide (Celexa) 20 mg PO DAILY [facility] Last Admin: 10/31/17 10:56 Dose: 20 mg Enoxaparin Sodium (Lovenox) 30 mg SC Q12H [facility] PRN Reason: Protocol Last Admin: 10/31/17 10:58 Dose: Not Given Fentanyl (Duragesic) 1 patch TD Q72H [facility] Last Admin: 10/29/17 01:38 Dose: Not Given Furosemide (Lasix) 40 mg IVP DAILY [facility] Last Admin: 10/31/17 10:56 Dose: Not Given Gabapentin (Neurontin) 300 mg PO TID [facility] PRN Reason: Protocol Last Admin: 10/31/17 10:56 Dose: 300 mg Loratadine (Claritin) 10 mg PO DAILY PRN PRN Reason: Allergy symptoms Adderall Xr 10 Mg ((Home Med)) 10 mg PO DAILY [facility] Last Admin: 10/31/17 10:56 Dose: Not Given Ondansetron HCl (Zofran Inj) 4 mg IVP Q6H PRN PRN Reason: Nausea/Vomiting Last Admin: 10/30/17 13:46 Dose: 4 mg Oxycodone/Acetaminophen (Percocet 10/325 Mg Tab) 1 tab PO Q4H PRN PRN Reason: Pain, moderate (4-7) Pantoprazole Sodium (Protonix Ec Tab) 40 mg PO 0600 [facility] Last Admin: 10/31/17 05:26 Dose: 40 mg Polyethylene Glycol (Miralax) 17 gm PO DAILY [facility] Last Admin: 10/31/17 10:58 Dose: 17 gm Prednisolone Acetate (Pred Forte 1% Opht Susp) 1 ml OD Q8 [facility] Last Admin: 10/31/17 05:26 Dose: 1 drop Prednisolone Acetate (Pred Forte 1% Opht Susp) 1 ml OS Q12 [facility] Last Admin: 10/31/17 11:00 Dose: 1 drop Spironolactone (Aldactone) 50 mg PO DAILY [facility] Last Admin: 10/31/17 10:56 Dose: Not Given - Labs Labs: 10/30/17 06:30 10/31/17 12:30 PT 12.1 SECONDS (9.4-12.5) 10/28/17 23:50 INR 1.06 (0.93-1.08) 10/28/17 23:50 APTT 35.0 Seconds (25.1-36.5) 10/28/17 23:50 - Constitutional Appears: No Acute Distress, Cachectic - Eye Exam Eye Exam: Normal appearance. absent: Scleral icterus - ENT Exam ENT Exam: Mucous Membranes Moist - Neck Exam Neck Exam: Normal Inspection - Respiratory Exam Respiratory Exam: NORMAL BREATHING PATTERN. absent: Respiratory Distress - Cardiovascular Exam Cardiovascular Exam: +S1, +S2 - GI/Abdominal Exam GI & Abdominal Exam: Distended, Soft, Tenderness (epigastric/mid abdomen), Normal Bowel Sounds. absent: Guarding, Rebound - Extremities Exam Extremities Exam: Pedal Edema. absent: Calf Tenderness - Neurological Exam Neurological Exam: Alert, Awake, Oriented x3 - Skin Skin Exam: Dry, Pallor, Warm Assessment and Plan - Assessment and Plan (Free Text) Assessment: ASSESSMENT: Diarrhea, differential Malabsorption Recurrent Ascites Abnormal LFT Recent Exp lap, no mass seen 09/2017 Anemia PLAN: diet as tolerated request for celiac disease DVT prophylaxsis GI propylaxsis Recommend outpatient PET Seen and discussed w/ Dr. Alvarado.
--- NOTE | 2017-10-31 18:44 | CP.PCM.CON ---
History of Present Illness - History of Present Illness History of Present Illness: 2 year old female with PMH of chronic anemia, HTN, multiple sclerosis, sarcoidosis, history of pancreatitis, S/P left ureteral stent initially came in to [facility] complaining of shortness of breath and increasing abdominal girth. She is being treated for ascites and is set to have therapeutic paracentesis to relieve the pressure on the lungs. Urine cx was also done on admission through the Smith catheter which is showing yeast. She also has a sacral decubitus ulcer and some pus coming from the right hallux. She feels weak, denies headache or dizziness, no chest pain, no nausea or vomiting, no chest pain, no abdominal pain, no dysuria. Infectious Diseases consult is requested to further evaluate and manage. Review of Systems - Review of Systems All systems: reviewed and no additional remarkable complaints except (as per HPI ) Past Patient History - Infectious Disease Hx of Infectious Diseases: None - Tetanus Immunizations Tetanus Immunization: Unknown - Past Social History Smoking Status: Former Smoker - CARDIAC Hx Cardiac Disorders: No - PULMONARY Hx Respiratory Disorders: Yes (SMOKED CIGARETTES) Other/Comment: SARCOIDOSIS - NEUROLOGICAL Hx Neurological Disorder: Yes (MS) - HEENT Hx HEENT Problems: Yes Other/Comment: 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 - RENAL Hx Chronic Kidney Disease: Yes (L KIDNEY CYST,H/O LITHOTRYPSIES) Hx Kidney Stones: Yes - ENDOCRINE/METABOLIC Hx Endocrine Disorders: Yes Hx Hyperthyroidism: Yes - HEMATOLOGICAL/ONCOLOGICAL Hx Blood Transfusions: Yes Hx Blood Transfusion Reaction: No - INTEGUMENTARY Hx Dermatological Problems: Yes Other/Comment: 10-04-17 sacral pressure ulcer stage 2 4x2 cm,with minimal serous drainage. Bilateral le edema pitting +4.Extending to abdominal area.Has ascites - MUSCULOSKELETAL/RHEUMATOLOGICAL Hx Musculoskeletal Disorders: Yes Hx Falls: Yes Other/Comment: MS - GASTROINTESTINAL Hx Gastrointestinal Disorders: Yes Other/Comment: ASCITES - GENITOURINARY/GYNECOLOGICAL Hx Genitourinary Disorders: Yes (nephrolithiasis) - PSYCHIATRIC Hx Psychophysiologic Disorder: Yes Hx Depression: Yes Hx Substance Use: No - SURGICAL HISTORY Hx Appendectomy: Yes Hx Cholecystectomy: Yes Hx Mastectomy: No - ANESTHESIA Hx Anesthesia Reactions: No Hx Malignant Hyperthermia: No Meds Allergies/Adverse Reactions: Allergies Allergy/AdvReac Type Severity Reaction Status Date / Time black pepper Allergy ITCHING Verified 10/28/17 18:13 codeine Allergy NAUSEA Verified 10/28/17 18:13 Penicillins Allergy SWELLING Verified 10/28/17 18:13 Sulfa (Sulfonamide Allergy RASH Verified 10/28/17 18:13 Antibiotics) - Medications Medications: Current Medications Albumin Human (Albumin Human 25% (12.5 Gm/50 Ml)) 12.5 gm IV BID [facility] Last Admin: 10/31/17 11:14 Dose: 12.5 gm Bisacodyl (Dulcolax) 10 mg RC DAILY [facility] Last Admin: 10/31/17 10:56 Dose: 10 mg Buspirone HCl (Buspar) 5 mg PO BID [facility] PRN Reason: Protocol Last Admin: 10/31/17 10:54 Dose: 5 mg Citalopram Hydrobromide (Celexa) 20 mg PO DAILY [facility] Last Admin: 10/31/17 10:56 Dose: 20 mg Enoxaparin Sodium (Lovenox) 30 mg SC Q12H [facility] PRN Reason: Protocol Last Admin: 10/31/17 10:58 Dose: Not Given Fentanyl (Duragesic) 1 patch TD Q72H [facility] Last Admin: 10/29/17 01:38 Dose: Not Given Furosemide (Lasix) 40 mg IVP DAILY [facility] Last Admin: 10/31/17 10:56 Dose: Not Given Gabapentin (Neurontin) 300 mg PO TID [facility] PRN Reason: Protocol Last Admin: 10/31/17 10:56 Dose: 300 mg Loratadine (Claritin) 10 mg PO DAILY PRN PRN Reason: Allergy symptoms Adderall Xr 20 Mg Capsule 10 Mg ( Home Med) 10 mg PO DAILY [facility] Last Admin: 10/31/17 10:56 Dose: Not Given Ondansetron HCl (Zofran Inj) 4 mg IVP Q6H PRN PRN Reason: Nausea/Vomiting Last Admin: 10/30/17 13:46 Dose: 4 mg Oxycodone/Acetaminophen (Percocet 10/325 Mg Tab) 1 tab PO Q6H PRN PRN Reason: Pain, moderate (4-7) Last Admin: 10/31/17 08:47 Dose: 1 tab Pantoprazole Sodium (Protonix Ec Tab) 40 mg PO 0600 [facility] Last Admin: 10/31/17 05:26 Dose: 40 mg Polyethylene Glycol (Miralax) 17 gm PO DAILY [facility] Last Admin: 10/31/17 10:58 Dose: 17 gm Prednisolone Acetate (Pred Forte 1% Opht Susp) 1 ml OD Q8 [facility] Last Admin: 10/31/17 05:26 Dose: 1 drop Prednisolone Acetate (Pred Forte 1% Opht Susp) 1 ml OS Q12 [facility] Last Admin: 10/31/17 11:00 Dose: 1 drop Spironolactone (Aldactone) 50 mg PO DAILY [facility] Last Admin: 10/31/17 10:56 Dose: Not Given Physical Exam - Constitutional Appears: Cachectic, Chronically Ill - Head Exam Head Exam: NORMAL INSPECTION - ENT Exam ENT Exam: Mucous Membranes Moist - Neck Exam Neck exam: Negative for: Meningismus - Respiratory Exam Respiratory Exam: Decreased Breath Sounds - Cardiovascular Exam Cardiovascular Exam: +S1, +S2 - GI/Abdominal Exam GI & Abdominal Exam: Soft. absent: Tenderness Results - Vital Signs Recent Vital Signs: Last Vital Signs Temp 98.2 F 10/31/17 06:00 Pulse 66 10/31/17 06:00 Resp 18 10/31/17 06:00 BP 77/53 L 10/31/17 10:56 Pulse Ox 98 10/31/17 06:00 - Labs Result Diagrams: 10/30/17 06:30 10/31/17 12:30 Assessment & Plan - Assessment and Plan (Free Text) Plan: Assessment Asymptomatic candiduria in a patient with Smith catheter chronic sacral decubitus ulcer without evidence of acute infection right hallux local skin and skin structure infection history of E. coli UTI history of bilateral lower extremity cellulitis transamintis, etiology to be determined history of bilateral lower extremity skin and skin structure infection with MRSA and Klebsiella chronic anemia HTN multiple sclerosis sarcoidosis history of pancreatitis S/P left ureteral stent Plan apply Bactroban to sacral ulcer and right hallux; continue local wound care on the sacral ulcer recommend Podiatry evaluation of the right hallux will repeat urine cx will monitor clinically overall prognosis is poor
--- NOTE | 2017-10-31 22:39 | CP.PCM.CON ---
History of Present Illness - History of Present Illness History of Present Illness: Surgery Consult Note. Dr Warren Surgery consulted for Sacral Wound. 62yo F with PMHx of HTN, MS, Sarcoidosis, Chronic Anemia, here for evaluation of worsening shortness of breath and increasing abdominal girth. Patient is well known to our surgical service. During this admission, surgical consult is requested to evaluate sacral wound. Patient states that she has had a sacral wound which was small and has been getting bigger over the course of the past 10 days. She denies any fevers or chills. She states that she has been bed bound due to worsening severe fatigue and wasting due to decreased appetite and cachexia. She denies any N/V/D. No Abd pain. Does report that she is to have a paracenthesis tomorrow by Dr. Gregory Ayers. PMD: Jemima PMHx: HTN, MS, Sarcoidosis, Chronic Anemia PSHx: x2, Gastrectomy 2004, Ventral Hernia Repair 2007, Cholecystectomy, Appendectomy Family Hx: non-contributory Social Hx: Deneis ETOH, Denies Tobacco currently (former smoker), Denies illicit drugs Allergy: Black Pepper, Codeine, PCN, Sulfa Review of Systems - Review of Systems All systems: reviewed and no additional remarkable complaints except - Constitutional Constitutional: Anorexia, Fatigue, Malaise. absent: Chills, Fever - Cardiovascular Cardiovascular: absent: Chest Pain, Dyspnea - Respiratory Respiratory: absent: Cough - Gastrointestinal Gastrointestinal: Bloating. absent: Diarrhea, Nausea, Vomiting Past Patient History - Infectious Disease Hx of Infectious Diseases: None - Tetanus Immunizations Tetanus Immunization: Unknown - Past Medical History & Family History Past Medical History?: Yes Past Family History: Reviewed and not pertinent - Past Social History Smoking Status: Former Smoker Alcohol: None Drugs: Denies - CARDIAC Hx Cardiac Disorders: No - PULMONARY Hx Respiratory Disorders: Yes (SMOKED CIGARETTES) Other/Comment: SARCOIDOSIS - NEUROLOGICAL Hx Neurological Disorder: Yes (MS) - HEENT Hx HEENT Problems: Yes Other/Comment: 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 - RENAL Hx Chronic Kidney Disease: Yes (L KIDNEY CYST,H/O LITHOTRYPSIES) Hx Kidney Stones: Yes - ENDOCRINE/METABOLIC Hx Endocrine Disorders: Yes Hx Hyperthyroidism: Yes - HEMATOLOGICAL/ONCOLOGICAL Hx Blood Transfusions: Yes Hx Blood Transfusion Reaction: No - INTEGUMENTARY Hx Dermatological Problems: Yes Other/Comment: 4-10-18 sacral pressure ulcer stage 2 4x2 cm,with minimal serous drainage. Bilateral le edema pitting +4.Extending to abdominal area.Has ascites - MUSCULOSKELETAL/RHEUMATOLOGICAL Hx Musculoskeletal Disorders: Yes Hx Falls: Yes Other/Comment: MS - GASTROINTESTINAL Hx Gastrointestinal Disorders: Yes Other/Comment: ASCITES - GENITOURINARY/GYNECOLOGICAL Hx Genitourinary Disorders: Yes (nephrolithiasis) - PSYCHIATRIC Hx Psychophysiologic Disorder: Yes Hx Depression: Yes Hx Substance Use: No - SURGICAL HISTORY Hx Appendectomy: Yes Hx Cholecystectomy: Yes Hx Mastectomy: No - ANESTHESIA Hx Anesthesia Reactions: No Hx Malignant Hyperthermia: No Meds Allergies/Adverse Reactions: Allergies Allergy/AdvReac Type Severity Reaction Status Date / Time black pepper Allergy ITCHING Verified 10/28/17 18:13 codeine Allergy NAUSEA Verified 10/28/17 18:13 Penicillins Allergy SWELLING Verified 10/28/17 18:13 Sulfa (Sulfonamide Allergy RASH Verified 10/28/17 18:13 Antibiotics) - Medications Medications: Current Medications Albumin Human (Albumin Human 25% (12.5 Gm/50 Ml)) 12.5 gm IV TID [facility] Last Admin: 10/31/17 17:58 Dose: 12.5 gm Amylase (Pancrease 69270 U-5000 U-85684 U) 5,000 unit PO ACTID [facility] Bisacodyl (Dulcolax) 10 mg RC DAILY [facility] Last Admin: 10/31/17 10:56 Dose: 10 mg Buspirone HCl (Buspar) 5 mg PO BID [facility] PRN Reason: Protocol Last Admin: 10/31/17 17:57 Dose: 5 mg Citalopram Hydrobromide (Celexa) 20 mg PO DAILY [facility] Last Admin: 10/31/17 10:56 Dose: 20 mg Collagenase (Santyl) 0 gm TOP DAILY [facility] Enoxaparin Sodium (Lovenox) 30 mg SC Q12H [facility] PRN Reason: Protocol Last Admin: 10/31/17 10:58 Dose: Not Given Fentanyl (Duragesic) 1 patch TD Q72H [facility] Last Admin: 10/29/17 01:38 Dose: Not Given Furosemide (Lasix) 40 mg IVP DAILY [facility] Last Admin: 10/31/17 10:56 Dose: Not Given Gabapentin (Neurontin) 300 mg PO TID [facility] PRN Reason: Protocol Last Admin: 10/31/17 17:57 Dose: 300 mg Loratadine (Claritin) 10 mg PO DAILY PRN PRN Reason: Allergy symptoms Mupirocin (Bactroban Ointment) 0 gm TOP BID [facility] Last Admin: 10/31/17 19:55 Dose: Not Given Adderall Xr 10 Mg ((Home Med)) 10 mg PO DAILY [facility] Last Admin: 10/31/17 10:56 Dose: Not Given Ondansetron HCl (Zofran Inj) 4 mg IVP Q6H PRN PRN Reason: Nausea/Vomiting Last Admin: 10/30/17 13:46 Dose: 4 mg Oxycodone/Acetaminophen (Percocet 10/325 Mg Tab) 1 tab PO Q4H PRN PRN Reason: Pain, moderate (4-7) Last Admin: 10/31/17 15:55 Dose: 1 tab Pantoprazole Sodium (Protonix Ec Tab) 40 mg PO 0600 [facility] Last Admin: 10/31/17 05:26 Dose: 40 mg Polyethylene Glycol (Miralax) 17 gm PO DAILY [facility] Last Admin: 10/31/17 10:58 Dose: 17 gm Prednisolone Acetate (Pred Forte 1% Opht Susp) 1 ml OD Q8 [facility] Last Admin: 10/31/17 15:46 Dose: 1 drop Prednisolone Acetate (Pred Forte 1% Opht Susp) 1 ml OS Q12 [facility] Last Admin: 10/31/17 11:00 Dose: 1 drop Spironolactone (Aldactone) 50 mg PO DAILY [facility] Last Admin: 10/31/17 10:56 Dose: Not Given Physical Exam - Constitutional Appears: Older Than Stated Age, Cachectic, Chronically Ill - Head Exam Head Exam: ATRAUMATIC, NORMAL INSPECTION, NORMOCEPHALIC - Eye Exam Eye Exam: EOMI, Normal appearance - ENT Exam ENT Exam: Mucous Membranes Moist - Respiratory Exam Respiratory Exam: NORMAL BREATHING PATTERN. absent: Accessory Muscle Use, Respiratory Distress - Cardiovascular Exam Cardiovascular Exam: absent: JVD - GI/Abdominal Exam GI & Abdominal Exam: Soft. absent: Distended, Firm, Guarding, Tenderness Additional comments: +fluid wave - Back Exam Additional comments: High sacrum wound. Stage 3/Unstageable wound: Approximately 3cm x4cm wound with necrotic skin base. No active discharge noted - Neurological Exam Neurological exam: Alert, Oriented x3 Results - Vital Signs Recent Vital Signs: Last Vital Signs Temp 98.4 F 10/31/17 18:00 Pulse 66 10/31/17 18:00 Resp 18 10/31/17 18:00 BP 101/72 10/31/17 18:00 Pulse Ox 98 10/31/17 06:00 - Labs Result Diagrams: 10/30/17 06:30 10/31/17 12:30 Labs: Laboratory Results - last 24 hr 10/31/17 12:30 Sodium 138 Potassium 4.1 Chloride 102 Carbon Dioxide 30 Anion Gap 11 BUN 21 Creatinine 0.5 L Est GFR ( Amer) > 60 Est GFR (Non-Af Amer) > 60 Random Glucose 72 Calcium 7.5 L Total Bilirubin 0.2 AST 114 H D ALT 153 H Alkaline Phosphatase 144 H D Total Protein 4.3 L Albumin 2.3 L Globulin 2.0 Albumin/Globulin Ratio 1.1 Assessment & Plan - Assessment and Plan (Free Text) Assessment: 62yo F with sacral decubitus Plan: - Encourage improvement in nutritional status. Encourage supplements. - Patient may benefit with wound debridement. We will discuss with surgical attending and make recommendations as we follow patient's clinical status - Agree with santyl to entire sacral wound for chemical debridement in the interim - Keep wound clean and dry. Optifoam to wound - Air mattress Further recs as per Dr. Briana Garrett PGY1 surgery pager: [phone]
[2017-11-01] MEDS: Oxycodone/Acetaminophen 10/325 mg Tab PO PRN ×5 (00:31→22:07)
[2017-11-01] MEDS: Pantoprazole 40 mg EC Tab PO SCH (05:43)
[2017-11-01] MEDS: PrednisoLONE 1% Opht Susp(5 ml) OD SCH ×3 (05:43→21:59)
[2017-11-01] MEDS: PrednisoLONE 1% Opht Susp(5 ml) OS SCH ×2 (10:00→21:59)
[2017-11-01] MEDS: Amylase/Lipase/Protease 5,000 Units ECC PO SCH ×3 (10:00→17:17)
[2017-11-01] MEDS ORDERED: Povidone Iodine Topical 10% Sol TOP ONE (10:09)
[2017-11-01] MEDS: POLYETHYLENE GLYCOL 3350 17 GM/Dose PACKET PO SCH (10:10)
[2017-11-01] MEDS: Albumin Human 25% (12.5 gm/50 ml) IV SCH ×3 (10:59→19:00)
[2017-11-01] MEDS: Enoxaparin 30 mg Syringe SC SCH ×2 (11:01→21:59)
--- NOTE | 2017-11-01 11:52 | CP.PCM.PN ---
Subjective - Date & Time of Evaluation Date of Evaluation: 11/01/17 Time of Evaluation: 10:40 - Subjective Subjective: S&E at bedside, chart reviewed, having BM, describe as "mushy", no diarrhea. No reports of overt GIB. Patient and nsg staff report good appetite, No N/V or abdominal pain but abdominal distension, await to go for paracentesis. No acute overnight events. Objective - Vital Signs/Intake and Output Vital Signs (last 24 hours): Temp Pulse Resp BP Pulse Ox 97.8 F 89 18 93/64 L 98 11/01/17 00:00 11/01/17 00:00 11/01/17 00:00 11/01/17 11:00 11/01/17 00:00 Intake and Output: 11/01/17 11/01/17 06:59 18:59 Intake Total 420 Output Total 1000 Balance -580 - Medications Medications: Current Medications Albumin Human (Albumin Human 25% (12.5 Gm/50 Ml)) 12.5 gm IV TID [facility] Last Admin: 11/01/17 10:59 Dose: 12.5 gm Amylase (Pancrease 74468 U-5000 U-95316 U) 5,000 unit PO ACTID [facility] Last Admin: 11/01/17 10:00 Dose: 5,000 unit Bisacodyl (Dulcolax) 10 mg RC DAILY [facility] Last Admin: 11/01/17 10:04 Dose: 10 mg Buspirone HCl (Buspar) 5 mg PO BID [facility] PRN Reason: Protocol Last Admin: 11/01/17 10:04 Dose: 5 mg Citalopram Hydrobromide (Celexa) 20 mg PO DAILY [facility] Last Admin: 11/01/17 10:04 Dose: 20 mg Collagenase (Santyl) 0 gm TOP DAILY [facility] Enoxaparin Sodium (Lovenox) 30 mg SC Q12H [facility] PRN Reason: Protocol Last Admin: 11/01/17 11:01 Dose: Not Given Fentanyl (Duragesic) 1 patch TD Q72H [facility] Last Admin: 10/31/17 22:26 Dose: 1 patch Furosemide (Lasix) 40 mg IVP DAILY [facility] Last Admin: 11/01/17 11:00 Dose: 40 mg Gabapentin (Neurontin) 300 mg PO TID [facility] PRN Reason: Protocol Last Admin: 10/31/17 17:57 Dose: 300 mg Amino Acids (Clinimix 4.25/5 % (1000 Ml)) 1,000 mls @ 42 mls/hr IV .[id number] [facility] Loratadine (Claritin) 10 mg PO DAILY PRN PRN Reason: Allergy symptoms Mupirocin (Bactroban Ointment) 0 gm TOP BID [facility] Last Admin: 10/31/17 19:55 Dose: Not Given Adderall Xr 10 Mg ((Home Med)) 10 mg PO DAILY [facility] Last Admin: 10/31/17 10:56 Dose: Not Given Ondansetron HCl (Zofran Inj) 4 mg IVP Q6H PRN PRN Reason: Nausea/Vomiting Last Admin: 11/01/17 11:18 Dose: 4 mg Oxycodone/Acetaminophen (Percocet 10/325 Mg Tab) 1 tab PO Q4H PRN PRN Reason: Pain, moderate (4-7) Last Admin: 11/01/17 10:00 Dose: 1 tab Pantoprazole Sodium (Protonix Ec Tab) 40 mg PO 0600 [facility] Last Admin: 11/01/17 05:43 Dose: 40 mg Polyethylene Glycol (Miralax) 17 gm PO DAILY [facility] Last Admin: 11/01/17 10:10 Dose: 17 gm Prednisolone Acetate (Pred Forte 1% Opht Susp) 1 ml OD Q8 [facility] Last Admin: 11/01/17 05:43 Dose: 1 drop Prednisolone Acetate (Pred Forte 1% Opht Susp) 1 ml OS Q12 [facility] Last Admin: 10/31/17 22:28 Dose: 1 drop Spironolactone (Aldactone) 50 mg PO DAILY [facility] Last Admin: 11/01/17 11:00 Dose: 50 mg - Labs Labs: 10/30/17 06:30 10/31/17 12:30 PT 12.1 SECONDS (9.4-12.5) 10/28/17 23:50 INR 1.06 (0.93-1.08) 10/28/17 23:50 APTT 35.0 Seconds (25.1-36.5) 10/28/17 23:50 - Constitutional Appears: No Acute Distress, Cachectic - Head Exam Head Exam: NORMOCEPHALIC - Eye Exam Eye Exam: Normal appearance. absent: Scleral icterus - ENT Exam ENT Exam: Mucous Membranes Moist - Neck Exam Neck Exam: Normal Inspection - Respiratory Exam Respiratory Exam: NORMAL BREATHING PATTERN. absent: Respiratory Distress - Cardiovascular Exam Cardiovascular Exam: +S1, +S2 - GI/Abdominal Exam GI & Abdominal Exam: Distended ((+) ascites), Soft, Normal Bowel Sounds. absent : Guarding, Tenderness, Rebound - Extremities Exam Extremities Exam: absent: Calf Tenderness, Pedal Edema - Neurological Exam Neurological Exam: Alert, Awake, Oriented x3 - Skin Skin Exam: Dry, Warm Assessment and Plan - Assessment and Plan (Free Text) Assessment: ASSESSMENT: Diarrhea, differential Malabsorption, previous MRCP negative for acute findings , no pancreatic mass noted Recurrent Ascites Abnormal LFT Weight Loss Recent Exp lap, no mass seen 09/2017 Anemia PLAN: diet as tolerated FU celiac disease panel start PPN, see order, pre lab ordered & FS BID as per protocol change Miralax prn , if no BM 2days, DC dulcolax, discuss w/ pt and nsg staff monitor LFT closely while on PPN on Pancreatic enzymes 5000U before meals paracentesis today DVT prophylaxsis GI propylaxsis Recommend outpatient PET Seen and discussed w/ Dr. Alvarado.
[2017-11-01 12:40] LABS: ALB/GLOB RATIO 1.1 (1.1-1.8); ALBUMIN 2.1 g/dL (3.0-4.8); ALT/SGPT 113 U/L (7-56); AST/SGOT 76 U/L (14-36); BLOOD UREA NITROGEN 22 mg/dL (7-21); CALCIUM 7.5 mg/dL (8.4-10.5); GFR AFRICAN-AMERICAN > 60; GFR NON-AFRICAN AMERICAN > 60
[2017-11-01] MEDS: ADDERALL 10 MG PO SCH (14:47)
--- NOTE | 2017-11-01 15:02 | CP.PCM.PN ---
Subjective - Date & Time of Evaluation Date of Evaluation: 11/01/17 Time of Evaluation: 11:35 - Subjective Subjective: Still with pain on the right hallux, no fevers, no diarrhea. Objective - Vital Signs/Intake and Output Vital Signs (last 24 hours): Temp Pulse Resp BP Pulse Ox 97.8 F 89 18 91/55 L 98 11/01/17 00:00 11/01/17 00:00 11/01/17 00:00 11/01/17 00:00 11/01/17 00:00 Intake and Output: 11/01/17 11/01/17 06:59 18:59 Intake Total 420 Output Total 1000 Balance -580 - Medications Medications: Current Medications Albumin Human (Albumin Human 25% (12.5 Gm/50 Ml)) 12.5 gm IV TID [facility] Last Admin: 10/31/17 17:58 Dose: 12.5 gm Amylase (Pancrease 13346 U-5000 U-69274 U) 5,000 unit PO ACTID [facility] Bisacodyl (Dulcolax) 10 mg RC DAILY [facility] Last Admin: 10/31/17 10:56 Dose: 10 mg Buspirone HCl (Buspar) 5 mg PO BID [facility] PRN Reason: Protocol Last Admin: 10/31/17 17:57 Dose: 5 mg Citalopram Hydrobromide (Celexa) 20 mg PO DAILY [facility] Last Admin: 10/31/17 10:56 Dose: 20 mg Collagenase (Santyl) 0 gm TOP DAILY [facility] Enoxaparin Sodium (Lovenox) 30 mg SC Q12H [facility] PRN Reason: Protocol Last Admin: 10/31/17 22:26 Dose: 30 mg Fentanyl (Duragesic) 1 patch TD Q72H [facility] Last Admin: 10/31/17 22:26 Dose: 1 patch Furosemide (Lasix) 40 mg IVP DAILY [facility] Last Admin: 10/31/17 10:56 Dose: Not Given Gabapentin (Neurontin) 300 mg PO TID [facility] PRN Reason: Protocol Last Admin: 10/31/17 17:57 Dose: 300 mg Loratadine (Claritin) 10 mg PO DAILY PRN PRN Reason: Allergy symptoms Mupirocin (Bactroban Ointment) 0 gm TOP BID [facility] Last Admin: 10/31/17 19:55 Dose: Not Given Adderall Xr 10 Mg ((Home Med)) 10 mg PO DAILY [facility] Last Admin: 10/31/17 10:56 Dose: Not Given Ondansetron HCl (Zofran Inj) 4 mg IVP Q6H PRN PRN Reason: Nausea/Vomiting Last Admin: 10/30/17 13:46 Dose: 4 mg Oxycodone/Acetaminophen (Percocet 10/325 Mg Tab) 1 tab PO Q4H PRN PRN Reason: Pain, moderate (4-7) Last Admin: 11/01/17 04:30 Dose: 1 tab Pantoprazole Sodium (Protonix Ec Tab) 40 mg PO 0600 [facility] Last Admin: 11/01/17 05:43 Dose: 40 mg Polyethylene Glycol (Miralax) 17 gm PO DAILY [facility] Last Admin: 10/31/17 10:58 Dose: 17 gm Prednisolone Acetate (Pred Forte 1% Opht Susp) 1 ml OD Q8 [facility] Last Admin: 11/01/17 05:43 Dose: 1 drop Prednisolone Acetate (Pred Forte 1% Opht Susp) 1 ml OS Q12 [facility] Last Admin: 10/31/17 22:28 Dose: 1 drop Spironolactone (Aldactone) 50 mg PO DAILY [facility] Last Admin: 10/31/17 10:56 Dose: Not Given - Labs Labs: 10/30/17 06:30 10/31/17 12:30 PT 12.1 SECONDS (9.4-12.5) 10/28/17 23:50 INR 1.06 (0.93-1.08) 10/28/17 23:50 APTT 35.0 Seconds (25.1-36.5) 10/28/17 23:50 - Constitutional Appears: Chronically Ill - Head Exam Head Exam: NORMAL INSPECTION - Respiratory Exam Respiratory Exam: Decreased Breath Sounds - Cardiovascular Exam Cardiovascular Exam: +S1, +S2 - GI/Abdominal Exam GI & Abdominal Exam: Soft. absent: Tenderness Assessment and Plan - Assessment and Plan (Free Text) Plan: Assessment Asymptomatic candiduria in a patient with Smith catheter chronic sacral decubitus ulcer without evidence of acute infection right hallux local skin and skin structure infection history of E. coli UTI history of bilateral lower extremity cellulitis transamintis, etiology to be determined history of bilateral lower extremity skin and skin structure infection with MRSA and Klebsiella chronic anemia HTN multiple sclerosis sarcoidosis history of pancreatitis S/P left ureteral stent Plan continue Bactroban to sacral ulcer and right hallux; continue local wound care on the sacral ulcer recommend Podiatry evaluation of the right hallux follow up repeat urine cx will continue to monitor clinically overall prognosis is poor
--- NOTE | 2017-11-01 15:05 | US ---
PROCEDURE: Ultrasound guided paracentesis. HISTORY: Cirrhosis. Recurrent ascites with abdominal pain and shortness of breath. Needs paracentesis PHYSICIAN(S): Kamlesh Ayers MD. TECHNIQUE: The relative risks and indications for the procedure were explained to the patient and informed written consent obtained. Sonography of the abdomen was performed in a supine position. This revealed a moderate to large amount of non-loculated ascites, greatest in the right lower quadrant. A puncture site was selected and the area was prepped and draped in the usual sterile fashion. 1% Xylocaine was used to anesthetize the skin and soft tissues. A 7 English paracentesis catheter was trocared into the right lower quadrantand 3000 cc of clear fluid aspirated. No labs were sent due to the recent paracentesis. IMPRESSION: Ultrasound-guided paracentesis in the right lower quadrant. 3000 cc of clear fluid were aspirated.
--- NOTE | 2017-11-01 16:46 | PN ---
DATE: 11/01/2017 SUBJECTIVE: The patient is a 62-year-old female , still has generalized aches and pain. No nausea or vomiting. No diarrhea. No abdominal pain. PHYSICAL EXAMINATION: VITAL SIGNS: She is afebrile, pulse 89, respirations 18, blood pressure 91/55. LUNGS: Bilateral good air flow. No rhonchi or crackle. HEART: S1, S2 audible. ABDOMEN: Soft and distended with fluid thrill. EXTREMITIES: She has sacral decubitus stage IV, had debridement done by surgical team sacral wound. Bilateral leg edema has improved. LABORATORY DATA: WBC 7, hemoglobin 9.7, hematocrit 29.2, and platelets of 188. Chemistry: Sodium 138, potassium 4.1, chloride 102, CO2 of 30, BUN 21, creatinine 0.5, and blood sugar of 72. AST 114, ALT 153, and alkaline phosphatase is 144. Her urine has gram-positive cocci. Sacral wound has MRSA and leg Doppler negative for DVT. ASSESSMENT: 1. Significant weight loss. 2. Cirrhosis of liver. 3. Ascites. 4. History of bariatric surgery in the past. She has malnutrition, probably secondary to that. 5. Chronic anemia, requiring intermittent blood transfusion. PLAN: The patient was evaluated by surgical team. Wound care has been done. She is scheduled for paracentesis today. We will continue her own albumin, Lasix. She has been started on TPN and she has also been started on pancreatic enzymes. She is on calorie count. We will reevaluate the patient in the morning. Rad Onofre MD
[2017-11-01] MEDS: Amino/Dext 4.25/5 1,000 ML IV SCH (17:16)
[2017-11-02] MEDS: Oxycodone/Acetaminophen 10/325 mg Tab PO PRN ×5 (02:05→22:29)
--- NOTE | 2017-11-02 02:32 | CON ---
DATE: 11/01/2017 HISTORY OF PRESENT ILLNESS: A 62-year-old female was seen at bedside with chief complaint of painful right great toe. Patient states that she is experiencing pain for the past several days, especially when anything touches her great toe or even bed sheet to be on top of her toes. PAST MEDICAL HISTORY: Significant for advanced multiple sclerosis, essential hypertension, chronic anemia, sarcoidosis, pancreatitis, anasarca, and ascites. MEDICATIONS: Patient's medications include BuSpar, Dulcolax, albumin, Celexa, Lovenox, Lasix, Neurontin, Claritin, Zofran, Percocet, Protonix, Miralax, spironolactone, and prednisone. ALLERGIES: KNOWN DRUG ALLERGIES INCLUDE SULFA, PENICILLIN, AND CODEINE WELL BLACK PEPPER. SOCIAL HISTORY: Patient is a former smoker. Denies illicit drug use. Denies alcohol abuse. VITAL SIGNS: Revealed temperature of 97.7, pulse rate of 64, blood pressure of 85/69, respiratory rate of 92. LABORATORY DATA: Laboratory findings reveal white count of 7, hemoglobin of 9.7, hematocrit of 29.2, platelet count of 188. Sacral ulcer developed MRSA on culture and sensitivity. OBJECTIVE: Weakly palpable pedal pulses noted bilaterally. Absent pedal hair growth noted bilaterally. Lower extremity skin presents thin, shining, discolored bilaterally. Capillary filling time is delayed x10. Patient is unable to detect 5.07 g monofilament wire testing bilaterally. There is noted to be a painful ingrowing tibial nail border on the right great toe. The offending nail border presents with edema and erythema and serous drainage. There is no purulence. There is no ascending cellulitis; however, there is localized cellulitis. ASSESSMENT: Painful onychocryptosis of the right great toenail at the tibial nail border with paronychia. PLAN: Patient was examined. Right great toe was swabbed with Betadine solution. Then using sterile tissue nippers and a sterile curette, the offending nail border was removed in toto. The area was flushed with normal sterile saline and application of Betadine solution and a dry sterile dressing was applied. We will apply Bactroban and a dry sterile dressing daily to the affected toe. All the other nail plates were excisionally debrided. Patient will be seen and followed daily while in-house. Jose Guadalupe Martínez DPM [facility] # [id number]
[2017-11-02] MEDS: PrednisoLONE 1% Opht Susp(5 ml) OD SCH ×3 (06:11→22:30)
[2017-11-02] MEDS: Pantoprazole 40 mg EC Tab PO SCH (06:12)
[2017-11-02] MEDS: Amylase/Lipase/Protease 5,000 Units ECC PO SCH ×3 (08:00→16:30)
[2017-11-02] MEDS: Collagenase 250 Units/gm Ointment(30 gm) TOP SCH (10:00)
[2017-11-02] MEDS: PrednisoLONE 1% Opht Susp(5 ml) OS SCH ×2 (10:00→22:30)
[2017-11-02] MEDS: POLYETHYLENE GLYCOL 3350 17 GM/Dose PACKET PO SCH (10:15)
[2017-11-02] MEDS: Enoxaparin 30 mg Syringe SC SCH ×2 (11:10→22:29)
[2017-11-02] MEDS: ADDERALL 10 MG PO SCH (11:13)
[2017-11-02] MEDS: Albumin Human 25% (12.5 gm/50 ml) IV SCH ×3 (11:51→18:32)
--- NOTE | 2017-11-02 12:07 | CP.PCM.PN ---
Subjective - Date & Time of Evaluation Date of Evaluation: 11/02/17 Time of Evaluation: 09:10 - Subjective Subjective: PGY-1 surgery progress note for Dr. Warren Patient seen and examined. Patient complaining of intermittent pain from the sacral wound. No other complaints at this time. Objective - Vital Signs/Intake and Output Vital Signs (last 24 hours): Temp Pulse Resp BP Pulse Ox 98.6 F 62 18 95/58 L 95 11/02/17 06:00 11/02/17 06:00 11/02/17 06:00 11/02/17 11:09 11/02/17 06:00 Intake and Output: 11/02/17 11/02/17 06:59 18:59 Intake Total 1048 Output Total 600 Balance 448 - Medications Medications: Current Medications Albumin Human (Albumin Human 25% (12.5 Gm/50 Ml)) 12.5 gm IV TID [facility] Last Admin: 11/02/17 11:51 Dose: 12.5 gm Amylase (Pancrease 25690 U-5000 U-[id number] U) 5,000 unit PO ACTID [facility] Last Admin: 11/02/17 11:16 Dose: 5,000 unit Buspirone HCl (Buspar) 5 mg PO BID [facility] PRN Reason: Protocol Last Admin: 11/02/17 11:10 Dose: 5 mg Citalopram Hydrobromide (Celexa) 20 mg PO DAILY [facility] Last Admin: 11/02/17 11:11 Dose: 20 mg Collagenase (Santyl) 0 gm TOP DAILY [facility] Enoxaparin Sodium (Lovenox) 30 mg SC Q12H [facility] PRN Reason: Protocol Last Admin: 11/02/17 11:10 Dose: 30 mg Fentanyl (Duragesic) 1 patch TD Q72H [facility] Last Admin: 10/31/17 22:26 Dose: 1 patch Furosemide (Lasix) 40 mg IVP DAILY [facility] Last Admin: 11/02/17 11:09 Dose: 40 mg Gabapentin (Neurontin) 300 mg PO TID [facility] PRN Reason: Protocol Last Admin: 11/02/17 11:11 Dose: 300 mg Amino Acids (Clinimix 4.25/5 % (1000 Ml)) 1,000 mls @ 42 mls/hr IV .[id number] [facility] Last Admin: 11/01/17 17:16 Dose: 42 mls/hr Loratadine (Claritin) 10 mg PO DAILY PRN PRN Reason: Allergy symptoms Mupirocin (Bactroban Ointment) 0 gm TOP BID [facility] Last Admin: 11/02/17 11:13 Dose: 1 applic Adderall Xr 10 Mg ((Home Med)) 10 mg PO DAILY [facility] Last Admin: 11/02/17 11:13 Dose: Not Given Ondansetron HCl (Zofran Inj) 4 mg IVP Q6H PRN PRN Reason: Nausea/Vomiting Last Admin: 11/02/17 11:10 Dose: 4 mg Oxycodone/Acetaminophen (Percocet 10/325 Mg Tab) 1 tab PO Q4H PRN PRN Reason: Pain, moderate (4-7) Last Admin: 11/02/17 06:11 Dose: 1 tab Pantoprazole Sodium (Protonix Ec Tab) 40 mg PO 0600 [facility] Last Admin: 11/02/17 06:12 Dose: 40 mg Polyethylene Glycol (Miralax) 17 gm PO DAILY PRN PRN Reason: Constipation Prednisolone Acetate (Pred Forte 1% Opht Susp) 1 ml OD Q8 [facility] Last Admin: 11/02/17 06:11 Dose: 1 drop Prednisolone Acetate (Pred Forte 1% Opht Susp) 1 ml OS Q12 [facility] Last Admin: 11/01/17 21:59 Dose: 1 drop Spironolactone (Aldactone) 50 mg PO DAILY [facility] Last Admin: 11/02/17 11:11 Dose: 50 mg - Labs Labs: 10/30/17 06:30 11/01/17 12:00 PT 12.1 SECONDS (9.4-12.5) 10/28/17 23:50 INR 1.06 (0.93-1.08) 10/28/17 23:50 APTT 35.0 Seconds (25.1-36.5) 10/28/17 23:50 - Constitutional Appears: No Acute Distress, Cachectic, Chronically Ill - Head Exam Head Exam: ATRAUMATIC - Eye Exam Eye Exam: EOMI, Normal appearance - ENT Exam ENT Exam: Mucous Membranes Dry - Respiratory Exam Respiratory Exam: NORMAL BREATHING PATTERN. absent: Respiratory Distress - Cardiovascular Exam Cardiovascular Exam: +S1, +S2 - GI/Abdominal Exam GI & Abdominal Exam: Soft, Normal Bowel Sounds. absent: Tenderness - Extremities Exam Extremities Exam: absent: Pedal Edema - Back Exam Additional comments: Stage 3 wound: Approximately 3cm x4cm. No active discharge - Neurological Exam Neurological Exam: Alert, Awake, Oriented x3 - Psychiatric Exam Psychiatric exam: Normal Affect, Normal Mood - Skin Skin Exam: Dry, Warm Assessment and Plan - Assessment and Plan (Free Text) Assessment: This is a 62 year old female with sacral decubitus wound. Plan: Sacral Wound Santyl to entire sacral wound along with optifoam dressing BID by nursing/wound Air mattress No further surgical intervention Discussed with Dr. Briana Padilla PGY-1
--- NOTE | 2017-11-02 12:30 | CP.PCM.PN ---
<Marley Fam - Last Filed: 11/02/17 12:29> Subjective - Date & Time of Evaluation Date of Evaluation: 11/02/17 Time of Evaluation: 11:15 - Subjective Subjective: S&E a t bedside, chart reviewed, no acute ovenight events, on PPN, had small BM today, no reports of overt GI bleed. Patient reports not sleeping well last night, intermittent napping but easily arousable, s/p paracentesis yesterday, 3L removed. Objective - Vital Signs/Intake and Output Vital Signs (last 24 hours): Temp Pulse Resp BP Pulse Ox 98.6 F 62 18 95/58 L 95 11/02/17 06:00 11/02/17 06:00 11/02/17 06:00 11/02/17 11:09 11/02/17 06:00 Intake and Output: 11/02/17 11/02/17 06:59 18:59 Intake Total 1048 Output Total 600 Balance 448 - Medications Medications: Current Medications Albumin Human (Albumin Human 25% (12.5 Gm/50 Ml)) 12.5 gm IV TID [facility] Last Admin: 11/02/17 11:51 Dose: 12.5 gm Amylase (Pancrease 19449 U-5000 U-81543 U) 5,000 unit PO ACTID [facility] Last Admin: 11/02/17 11:16 Dose: 5,000 unit Buspirone HCl (Buspar) 5 mg PO BID [facility] PRN Reason: Protocol Last Admin: 11/02/17 11:10 Dose: 5 mg Citalopram Hydrobromide (Celexa) 20 mg PO DAILY [facility] Last Admin: 11/02/17 11:11 Dose: 20 mg Collagenase (Santyl) 0 gm TOP DAILY [facility] Enoxaparin Sodium (Lovenox) 30 mg SC Q12H [facility] PRN Reason: Protocol Last Admin: 11/02/17 11:10 Dose: 30 mg Fentanyl (Duragesic) 1 patch TD Q72H [facility] Last Admin: 10/31/17 22:26 Dose: 1 patch Furosemide (Lasix) 40 mg IVP DAILY [facility] Last Admin: 11/02/17 11:09 Dose: 40 mg Gabapentin (Neurontin) 300 mg PO TID [facility] PRN Reason: Protocol Last Admin: 11/02/17 11:11 Dose: 300 mg Amino Acids (Clinimix 4.25/5 % (1000 Ml)) 1,000 mls @ 42 mls/hr IV .[id number] [facility] Last Admin: 11/01/17 17:16 Dose: 42 mls/hr Loratadine (Claritin) 10 mg PO DAILY PRN PRN Reason: Allergy symptoms Mupirocin (Bactroban Ointment) 0 gm TOP BID [facility] Last Admin: 11/02/17 11:13 Dose: 1 applic Adderall Xr 10 Mg ((Home Med)) 10 mg PO DAILY [facility] Last Admin: 11/02/17 11:13 Dose: Not Given Ondansetron HCl (Zofran Inj) 4 mg IVP Q6H PRN PRN Reason: Nausea/Vomiting Last Admin: 11/02/17 11:10 Dose: 4 mg Oxycodone/Acetaminophen (Percocet 10/325 Mg Tab) 1 tab PO Q4H PRN PRN Reason: Pain, moderate (4-7) Last Admin: 11/02/17 06:11 Dose: 1 tab Pantoprazole Sodium (Protonix Ec Tab) 40 mg PO 0600 [facility] Last Admin: 11/02/17 06:12 Dose: 40 mg Polyethylene Glycol (Miralax) 17 gm PO DAILY PRN PRN Reason: Constipation Prednisolone Acetate (Pred Forte 1% Opht Susp) 1 ml OD Q8 [facility] Last Admin: 11/02/17 06:11 Dose: 1 drop Prednisolone Acetate (Pred Forte 1% Opht Susp) 1 ml OS Q12 [facility] Last Admin: 11/01/17 21:59 Dose: 1 drop Spironolactone (Aldactone) 50 mg PO DAILY [facility] Last Admin: 11/02/17 11:11 Dose: 50 mg - Labs Labs: 10/30/17 06:30 11/01/17 12:00 PT 12.1 SECONDS (9.4-12.5) 10/28/17 23:50 INR 1.06 (0.93-1.08) 10/28/17 23:50 APTT 35.0 Seconds (25.1-36.5) 10/28/17 23:50 - Constitutional Appears: No Acute Distress - Eye Exam Eye Exam: Normal appearance. absent: Scleral icterus - ENT Exam ENT Exam: Mucous Membranes Moist - Neck Exam Neck Exam: Normal Inspection - Respiratory Exam Respiratory Exam: NORMAL BREATHING PATTERN. absent: Respiratory Distress - Cardiovascular Exam Cardiovascular Exam: +S1, +S2 - GI/Abdominal Exam GI & Abdominal Exam: Distended (less, s/p paracentesis), Soft, Normal Bowel Sounds. absent: Guarding, Tenderness, Rebound - Extremities Exam Extremities Exam: absent: Calf Tenderness, Pedal Edema - Neurological Exam Neurological Exam: Alert, Awake, Oriented x3 - Skin Skin Exam: Dry, Warm Assessment and Plan - Assessment and Plan (Free Text) Assessment: ASSESSMENT: Diarrhea, differential Malabsorption, previous MRCP negative for acute findings , no pancreatic mass noted Recurrent Ascites, s/p paracentesis, 3L removed Abnormal LFT Weight Loss Recent Exp lap, no mass seen 09/2017 Anemia PLAN: diet as tolerated FU celiac disease panel continue PPN change Miralax prn , if no BM 2days, DC dulcolax, discuss w/ pt and nsg staff monitor LFT closely while on PPN on Pancreatic enzymes 5000U before meals DVT prophylaxsis GI propylaxsis Recommend outpatient PET Seen and discussed w/ Dr. Alvarado. <Ami Alvarado V - Last Filed: 11/02/17 23:50> Objective - Vital Signs/Intake and Output Vital Signs (last 24 hours): Temp Pulse Resp BP Pulse Ox 98.2 F 73 20 86/61 L 98 11/02/17 22:00 11/02/17 22:00 11/02/17 22:00 11/02/17 22:00 11/02/17 22:00 Intake and Output: 11/02/17 11/03/17 18:59 06:59 Intake Total 340 360 Output Total 1600 Balance 340 -1240 - Medications Medications: Current Medications Albumin Human (Albumin Human 25% (12.5 Gm/50 Ml)) 12.5 gm IV TID [facility] Last Admin: 11/02/17 18:00 Dose: 12.5 gm Amylase (Pancrease 78322 U-5000 U-26900 U) 5,000 unit PO ACTID [facility] Last Admin: 11/02/17 16:30 Dose: 5,000 unit Buspirone HCl (Buspar) 5 mg PO BID [facility] PRN Reason: Protocol Last Admin: 11/02/17 20:07 Dose: Not Given Citalopram Hydrobromide (Celexa) 20 mg PO DAILY [facility] Last Admin: 11/02/17 11:11 Dose: 20 mg Collagenase (Santyl) 0 gm TOP DAILY [facility] Last Admin: 11/02/17 10:00 Dose: 1 applic Enoxaparin Sodium (Lovenox) 30 mg SC Q12H [facility] PRN Reason: Protocol Last Admin: 11/02/17 22:29 Dose: 30 mg Fentanyl (Duragesic) 1 patch TD Q72H [facility] Last Admin: 10/31/17 22:26 Dose: 1 patch Furosemide (Lasix) 40 mg IVP DAILY [facility] Last Admin: 11/02/17 11:09 Dose: 40 mg Gabapentin (Neurontin) 300 mg PO TID [facility] PRN Reason: Protocol Last Admin: 11/02/17 20:08 Dose: Not Given Amino Acids (Clinimix 4.25/5 % (1000 Ml)) 1,000 mls @ 42 mls/hr IV .[id number] [facility] Last Admin: 11/02/17 18:33 Dose: 42 mls/hr Loratadine (Claritin) 10 mg PO DAILY PRN PRN Reason: Allergy symptoms Mupirocin (Bactroban Ointment) 0 gm TOP BID [facility] Last Admin: 11/02/17 18:32 Dose: 1 applic Adderall Xr 10 Mg ((Home Med)) 10 mg PO DAILY [facility] Last Admin: 11/02/17 11:13 Dose: Not Given Ondansetron HCl (Zofran Inj) 4 mg IVP Q6H PRN PRN Reason: Nausea/Vomiting Last Admin: 11/02/17 11:10 Dose: 4 mg Oxycodone/Acetaminophen (Percocet 10/325 Mg Tab) 1 tab PO Q4H PRN PRN Reason: Pain, moderate (4-7) Last Admin: 11/02/17 22:29 Dose: 1 tab Pantoprazole Sodium (Protonix Ec Tab) 40 mg PO 0600 [facility] Last Admin: 11/02/17 06:12 Dose: 40 mg Polyethylene Glycol (Miralax) 17 gm PO DAILY PRN PRN Reason: Constipation Last Admin: 11/02/17 22:51 Dose: 17 gm Prednisolone Acetate (Pred Forte 1% Opht Susp) 1 ml OD Q8 [facility] Last Admin: 11/02/17 22:30 Dose: 1 drop Prednisolone Acetate (Pred Forte 1% Opht Susp) 1 ml OS Q12 [facility] Last Admin: 11/02/17 22:30 Dose: 1 drop Spironolactone (Aldactone) 50 mg PO DAILY [facility] Last Admin: 11/02/17 11:11 Dose: 50 mg - Labs Labs: 10/30/17 06:30 11/01/17 12:00 PT 12.1 SECONDS (9.4-12.5) 10/28/17 23:50 INR 1.06 (0.93-1.08) 10/28/17 23:50 APTT 35.0 Seconds (25.1-36.5) 10/28/17 23:50 Attending/Attestation - Attestation I have personally seen and examined this patient.: Yes I have fully participated in the care of the patient.: Yes I have reviewed all pertinent clinical information, including history, physical exam and plan: Yes Notes (Text): This is an addendum to GI progress report dictated by the Tool Adjuster.The patient was seen and examined earlier. Medical records, lab studies, imagings were reviewed. Last 24 hours events reviewed. Agreed with the above treatment plan as outlined in Tool Adjuster 's notes the with the addition of the following 11/02/17 23:49
--- NOTE | 2017-11-02 14:33 | PN ---
DATE: 11/02/2017 SUBJECTIVE: The patient is a 62-year-old, seen and examined. Had paracentesis done, had 3 L fluid removed. Swelling seems to be much better. OBJECTIVE: VITAL SIGNS: She is afebrile, pulse 62, respirations 18, blood pressure 95/50. LUNGS: Bilateral fair airflow, decreased breath sound at bases. HEART: S1 and S2 audible. ABDOMEN: Soft now, not tense anymore. EXTREMITIES: Bilateral leg +2 edema with slight erythema, which is sacral decubitus that has been packed. LABORATORY EXAM: WBC 7, hemoglobin 9.7, hematocrit 29.2, and platelets 188. Chemistry: Sodium 138, potassium 4.1, chloride 104, CO2 of 28, BUN 22, creatinine 0.4 and blood sugar of 76. ASSESSMENT: 1. Cirrhosis of liver, multifactorial. 2. Hemochromatosis, positive heterozygous gene. 3. Hypoalbuminemia. 4. Malnutrition. 5. Significant weight loss, etiology is also multifactorial. 6. Right big toe ingrown toenail. 7. Stage IV sacral decubitus. PLAN: Patient is currently on TPN. She is getting albumin. She is on DVT prophylaxis. She is on pancreatic enzyme. We will continue her on PPI. Patient has MRSA sacral wound. So, plan is currently patient is on TPN. Local wound care is being done. We will discuss with Dr. Guo. Patient need to have a PET scan as outpatient and we will discuss with other consultants. We will make discharge plan. Rad Onofre MD
--- NOTE | 2017-11-02 15:18 | CP.PCM.CON ---
History of Present Illness - History of Present Illness History of Present Illness: 62F with PMHx of HTN, MS, Sarcoidosis, Chronic Anemia Review of Systems - Review of Systems All systems: reviewed and no additional remarkable complaints except Review of Systems: as per HPI Past Patient History - Infectious Disease Hx of Infectious Diseases: None - Tetanus Immunizations Tetanus Immunization: Unknown - Past Medical History & Family History Past Medical History?: Yes Past Family History: Reviewed and not pertinent - Past Social History Smoking Status: Former Smoker Alcohol: None Drugs: Denies - CARDIAC Hx Cardiac Disorders: No - PULMONARY Hx Respiratory Disorders: Yes (SMOKED CIGARETTES) Other/Comment: SARCOIDOSIS - NEUROLOGICAL Hx Neurological Disorder: Yes (MS) - HEENT Hx HEENT Problems: Yes Other/Comment: 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 - RENAL Hx Chronic Kidney Disease: Yes (L KIDNEY CYST,H/O LITHOTRYPSIES) Hx Kidney Stones: Yes - ENDOCRINE/METABOLIC Hx Endocrine Disorders: Yes Hx Hyperthyroidism: Yes - HEMATOLOGICAL/ONCOLOGICAL Hx Blood Transfusions: Yes Hx Blood Transfusion Reaction: No - INTEGUMENTARY Hx Dermatological Problems: Yes Other/Comment: 10-04-17 sacral pressure ulcer stage 2 4x2 cm,with minimal serous drainage. Bilateral le edema pitting +4.Extending to abdominal area.Has ascites - MUSCULOSKELETAL/RHEUMATOLOGICAL Hx Musculoskeletal Disorders: Yes Hx Falls: Yes Other/Comment: MS - GASTROINTESTINAL Hx Gastrointestinal Disorders: Yes Other/Comment: ASCITES - GENITOURINARY/GYNECOLOGICAL Hx Genitourinary Disorders: Yes (nephrolithiasis) - PSYCHIATRIC Hx Psychophysiologic Disorder: Yes Hx Depression: Yes Hx Substance Use: No - SURGICAL HISTORY Hx Appendectomy: Yes Hx Cholecystectomy: Yes Hx Mastectomy: No - ANESTHESIA Hx Anesthesia Reactions: No Hx Malignant Hyperthermia: No Meds Allergies/Adverse Reactions: Allergies Allergy/AdvReac Type Severity Reaction Status Date / Time black pepper Allergy ITCHING Verified 10/28/17 18:13 codeine Allergy NAUSEA Verified 10/28/17 18:13 Penicillins Allergy SWELLING Verified 10/28/17 18:13 Sulfa (Sulfonamide Allergy RASH Verified 10/28/17 18:13 Antibiotics) - Medications Medications: Current Medications Albumin Human (Albumin Human 25% (12.5 Gm/50 Ml)) 12.5 gm IV TID [facility] Last Admin: 11/02/17 11:51 Dose: 12.5 gm Amylase (Pancrease 42438 U-5000 U-52156 U) 5,000 unit PO ACTID [facility] Last Admin: 11/02/17 11:16 Dose: 5,000 unit Buspirone HCl (Buspar) 5 mg PO BID [facility] PRN Reason: Protocol Last Admin: 11/02/17 11:10 Dose: 5 mg Citalopram Hydrobromide (Celexa) 20 mg PO DAILY [facility] Last Admin: 11/02/17 11:11 Dose: 20 mg Collagenase (Santyl) 0 gm TOP DAILY [facility] Last Admin: 11/02/17 10:00 Dose: 1 applic Enoxaparin Sodium (Lovenox) 30 mg SC Q12H [facility] PRN Reason: Protocol Last Admin: 11/02/17 11:10 Dose: 30 mg Fentanyl (Duragesic) 1 patch TD Q72H [facility] Last Admin: 10/31/17 22:26 Dose: 1 patch Furosemide (Lasix) 40 mg IVP DAILY [facility] Last Admin: 11/02/17 11:09 Dose: 40 mg Gabapentin (Neurontin) 300 mg PO TID [facility] PRN Reason: Protocol Last Admin: 11/02/17 11:11 Dose: 300 mg Amino Acids (Clinimix 4.25/5 % (1000 Ml)) 1,000 mls @ 42 mls/hr IV .[id number] [facility] Last Admin: 11/01/17 17:16 Dose: 42 mls/hr Loratadine (Claritin) 10 mg PO DAILY PRN PRN Reason: Allergy symptoms Mupirocin (Bactroban Ointment) 0 gm TOP BID [facility] Last Admin: 11/02/17 11:13 Dose: 1 applic Adderall Xr 10 Mg ((Home Med)) 10 mg PO DAILY [facility] Last Admin: 11/02/17 11:13 Dose: Not Given Ondansetron HCl (Zofran Inj) 4 mg IVP Q6H PRN PRN Reason: Nausea/Vomiting Last Admin: 11/02/17 11:10 Dose: 4 mg Oxycodone/Acetaminophen (Percocet 10/325 Mg Tab) 1 tab PO Q4H PRN PRN Reason: Pain, moderate (4-7) Last Admin: 11/02/17 14:17 Dose: 1 tab Pantoprazole Sodium (Protonix Ec Tab) 40 mg PO 0600 [facility] Last Admin: 11/02/17 06:12 Dose: 40 mg Polyethylene Glycol (Miralax) 17 gm PO DAILY PRN PRN Reason: Constipation Prednisolone Acetate (Pred Forte 1% Opht Susp) 1 ml OD Q8 [facility] Last Admin: 11/02/17 14:18 Dose: 1 drop Prednisolone Acetate (Pred Forte 1% Opht Susp) 1 ml OS Q12 [facility] Last Admin: 11/02/17 10:00 Dose: 1 drop Spironolactone (Aldactone) 50 mg PO DAILY [facility] Last Admin: 11/02/17 11:11 Dose: 50 mg Physical Exam - Constitutional Appears: Well, Non-toxic, No Acute Distress - Head Exam Head Exam: ATRAUMATIC, NORMOCEPHALIC - ENT Exam ENT Exam: Mucous Membranes Moist, Normal Exam - Respiratory Exam Respiratory Exam: NORMAL BREATHING PATTERN. absent: Respiratory Distress - Back Exam Back exam: absent: CVA tenderness (L), CVA tenderness (R) - Neurological Exam Neurological exam: Alert, Oriented x3 - Psychiatric Exam Psychiatric exam: Normal Affect, Normal Mood Results - Vital Signs Recent Vital Signs: Last Vital Signs Temp 98.5 F 11/02/17 14:00 Pulse 81 11/02/17 14:00 Resp 20 11/02/17 14:00 BP 90/62 L 11/02/17 14:00 Pulse Ox 98 11/02/17 14:00 - Labs Result Diagrams: 10/30/17 06:30 11/01/17 12:00 Labs: Laboratory Results - last 24 hr 10/31/17 11/01/17 11/02/17 12:30 11:30 07:30 POC Glucose (mg/dL) 88 Prealbumin 6.7 L IgA 189 Endomysial IgA Ab Titer TEST NOT PERFORMED Endomysial IgA Ab TEST NOT PERFORMED Tiss Transglutamin IgA 1 Celiac Disease Interp See note 11/02/17 11:00 POC Glucose (mg/dL) 96 Prealbumin IgA Endomysial IgA Ab Titer Endomysial IgA Ab Tiss Transglutamin IgA Celiac Disease Interp Assessment & Plan - Assessment and Plan (Free Text) Assessment: 62F seen for clinically uninfected distal left hallux ulceration Plan: Patient seen and evaluated Plan discussed with attending Dr. Puckett Charts, labs, vitals reviewed
--- NOTE | 2017-11-02 15:49 | CP.PCM.PN ---
Subjective - Date & Time of Evaluation Date of Evaluation: 11/02/17 Time of Evaluation: 11:20 - Subjective Subjective: Still feels weak, no fevers, not in distress. Objective - Vital Signs/Intake and Output Vital Signs (last 24 hours): Temp Pulse Resp BP Pulse Ox 98.6 F 62 18 91/63 L 95 11/02/17 06:00 11/02/17 06:00 11/02/17 06:00 11/02/17 06:00 11/02/17 06:00 Intake and Output: 11/02/17 11/02/17 06:59 18:59 Intake Total 1048 Output Total 600 Balance 448 - Medications Medications: Current Medications Albumin Human (Albumin Human 25% (12.5 Gm/50 Ml)) 12.5 gm IV TID [facility] Last Admin: 11/01/17 17:16 Dose: 12.5 gm Amylase (Pancrease 00166 U-5000 U-37125 U) 5,000 unit PO ACTID [facility] Last Admin: 11/01/17 17:17 Dose: 5,000 unit Buspirone HCl (Buspar) 5 mg PO BID [facility] PRN Reason: Protocol Last Admin: 11/01/17 10:04 Dose: 5 mg Citalopram Hydrobromide (Celexa) 20 mg PO DAILY [facility] Last Admin: 11/01/17 10:04 Dose: 20 mg Collagenase (Santyl) 0 gm TOP DAILY [facility] Enoxaparin Sodium (Lovenox) 30 mg SC Q12H [facility] PRN Reason: Protocol Last Admin: 11/01/17 21:59 Dose: 30 mg Fentanyl (Duragesic) 1 patch TD Q72H [facility] Last Admin: 10/31/17 22:26 Dose: 1 patch Furosemide (Lasix) 40 mg IVP DAILY [facility] Last Admin: 11/01/17 11:00 Dose: 40 mg Gabapentin (Neurontin) 300 mg PO TID [facility] PRN Reason: Protocol Last Admin: 11/01/17 17:17 Dose: 300 mg Amino Acids (Clinimix 4.25/5 % (1000 Ml)) 1,000 mls @ 42 mls/hr IV .[id number] [facility] Last Admin: 11/01/17 17:16 Dose: 42 mls/hr Loratadine (Claritin) 10 mg PO DAILY PRN PRN Reason: Allergy symptoms Mupirocin (Bactroban Ointment) 0 gm TOP BID [facility] Last Admin: 10/31/17 19:55 Dose: Not Given Adderall Xr 10 Mg ((Home Med)) 10 mg PO DAILY [facility] Last Admin: 11/01/17 14:47 Dose: Not Given Ondansetron HCl (Zofran Inj) 4 mg IVP Q6H PRN PRN Reason: Nausea/Vomiting Last Admin: 11/01/17 11:18 Dose: 4 mg Oxycodone/Acetaminophen (Percocet 10/325 Mg Tab) 1 tab PO Q4H PRN PRN Reason: Pain, moderate (4-7) Last Admin: 11/02/17 06:11 Dose: 1 tab Pantoprazole Sodium (Protonix Ec Tab) 40 mg PO 0600 [facility] Last Admin: 11/02/17 06:12 Dose: 40 mg Polyethylene Glycol (Miralax) 17 gm PO DAILY PRN PRN Reason: Constipation Prednisolone Acetate (Pred Forte 1% Opht Susp) 1 ml OD Q8 [facility] Last Admin: 11/02/17 06:11 Dose: 1 drop Prednisolone Acetate (Pred Forte 1% Opht Susp) 1 ml OS Q12 [facility] Last Admin: 11/01/17 21:59 Dose: 1 drop Spironolactone (Aldactone) 50 mg PO DAILY [facility] Last Admin: 11/01/17 11:00 Dose: 50 mg - Labs Labs: 10/30/17 06:30 11/01/17 12:00 PT 12.1 SECONDS (9.4-12.5) 10/28/17 23:50 INR 1.06 (0.93-1.08) 10/28/17 23:50 APTT 35.0 Seconds (25.1-36.5) 10/28/17 23:50 - Constitutional Appears: Chronically Ill - Head Exam Head Exam: NORMAL INSPECTION - Neck Exam Neck Exam: absent: Meningismus - Respiratory Exam Respiratory Exam: Decreased Breath Sounds - Cardiovascular Exam Cardiovascular Exam: +S1, +S2 - GI/Abdominal Exam GI & Abdominal Exam: Soft. absent: Tenderness - Extremities Exam Additional comments: right foot with dressings in place Assessment and Plan - Assessment and Plan (Free Text) Plan: Assessment Asymptomatic candiduria in a patient with Smith catheter chronic sacral decubitus ulcer without evidence of acute infection right hallux local skin and skin structure infection history of E. coli UTI history of bilateral lower extremity cellulitis transamintis, etiology to be determined history of bilateral lower extremity skin and skin structure infection with MRSA and Klebsiella chronic anemia HTN multiple sclerosis sarcoidosis history of pancreatitis S/P left ureteral stent Plan continue Bactroban to sacral ulcer and right hallux; continue local wound care on the sacral ulcer reviewed Podiatry evaluation and recommendations for the right hallux will continue to monitor clinically overall prognosis is poor
--- NOTE | 2017-11-02 16:33 | CP.PCM.PN ---
Subjective - Date & Time of Evaluation Date of Evaluation: 11/02/17 Time of Evaluation: 16:11 - Subjective Subjective: 62F with PMHx of HTN, MS, Sarcoidosis, Chronic Anemia seen at bedside after having partial nail avulsion of ingrown right hallux nail. Patient is AAO x 3 and NAD during visit. Denies any pain to the area. Denies noticing any redness, drainage, malodor or other clinical signs of infection. Denies any new pedal complaints at this time. Denies any recent N/V/F/C/CP/SOB/D/posterior calf pain when squeezed Objective - Vital Signs/Intake and Output Vital Signs (last 24 hours): Temp Pulse Resp BP Pulse Ox 98.5 F 81 20 90/62 L 98 11/02/17 14:00 11/02/17 14:00 11/02/17 14:00 11/02/17 14:00 11/02/17 14:00 Intake and Output: 11/02/17 11/02/17 06:59 18:59 Intake Total 1048 340 Output Total 600 Balance 448 340 - Medications Medications: Current Medications Albumin Human (Albumin Human 25% (12.5 Gm/50 Ml)) 12.5 gm IV TID [facility] Last Admin: 11/02/17 11:51 Dose: 12.5 gm Amylase (Pancrease 97906 U-5000 U-74948 U) 5,000 unit PO ACTID [facility] Last Admin: 11/02/17 11:16 Dose: 5,000 unit Buspirone HCl (Buspar) 5 mg PO BID [facility] PRN Reason: Protocol Last Admin: 11/02/17 11:10 Dose: 5 mg Citalopram Hydrobromide (Celexa) 20 mg PO DAILY [facility] Last Admin: 11/02/17 11:11 Dose: 20 mg Collagenase (Santyl) 0 gm TOP DAILY [facility] Last Admin: 11/02/17 10:00 Dose: 1 applic Enoxaparin Sodium (Lovenox) 30 mg SC Q12H [facility] PRN Reason: Protocol Last Admin: 11/02/17 11:10 Dose: 30 mg Fentanyl (Duragesic) 1 patch TD Q72H [facility] Last Admin: 10/31/17 22:26 Dose: 1 patch Furosemide (Lasix) 40 mg IVP DAILY [facility] Last Admin: 11/02/17 11:09 Dose: 40 mg Gabapentin (Neurontin) 300 mg PO TID [facility] PRN Reason: Protocol Last Admin: 11/02/17 11:11 Dose: 300 mg Amino Acids (Clinimix 4.25/5 % (1000 Ml)) 1,000 mls @ 42 mls/hr IV .[id number] [facility] Last Admin: 11/01/17 17:16 Dose: 42 mls/hr Loratadine (Claritin) 10 mg PO DAILY PRN PRN Reason: Allergy symptoms Mupirocin (Bactroban Ointment) 0 gm TOP BID [facility] Last Admin: 11/02/17 11:13 Dose: 1 applic Adderall Xr 10 Mg ((Home Med)) 10 mg PO DAILY [facility] Last Admin: 11/02/17 11:13 Dose: Not Given Ondansetron HCl (Zofran Inj) 4 mg IVP Q6H PRN PRN Reason: Nausea/Vomiting Last Admin: 11/02/17 11:10 Dose: 4 mg Oxycodone/Acetaminophen (Percocet 10/325 Mg Tab) 1 tab PO Q4H PRN PRN Reason: Pain, moderate (4-7) Last Admin: 11/02/17 14:17 Dose: 1 tab Pantoprazole Sodium (Protonix Ec Tab) 40 mg PO 0600 [facility] Last Admin: 11/02/17 06:12 Dose: 40 mg Polyethylene Glycol (Miralax) 17 gm PO DAILY PRN PRN Reason: Constipation Prednisolone Acetate (Pred Forte 1% Opht Susp) 1 ml OD Q8 [facility] Last Admin: 11/02/17 14:18 Dose: 1 drop Prednisolone Acetate (Pred Forte 1% Opht Susp) 1 ml OS Q12 [facility] Last Admin: 11/02/17 10:00 Dose: 1 drop Spironolactone (Aldactone) 50 mg PO DAILY [facility] Last Admin: 11/02/17 11:11 Dose: 50 mg - Labs Labs: 10/30/17 06:30 11/01/17 12:00 PT 12.1 SECONDS (9.4-12.5) 10/28/17 23:50 INR 1.06 (0.93-1.08) 10/28/17 23:50 APTT 35.0 Seconds (25.1-36.5) 10/28/17 23:50 - Constitutional Appears: Well, Non-toxic, No Acute Distress - Head Exam Head Exam: ATRAUMATIC, NORMOCEPHALIC - Extremities Exam Additional comments: LE focused exam: Vasc: DP/PT pulses palpable 1/4 b/l. Skin temperature warm to warm from proximal to distal. CFT < 3 seconds to all digits b/l. No edema noted to right hallux Neuro: Epicritic and protective sensation grossly intact b/l Derm: Evidence of partial nail avulsion of medial right hallux nail border. No erythema, malodor, drainage or other clinical signs of infection MSK: Minimal POP to partial nail avusion site. No other gross deformities noted - Neurological Exam Neurological Exam: Alert, Awake, Oriented x3 - Psychiatric Exam Psychiatric exam: Normal Affect, Normal Mood Assessment and Plan - Assessment and Plan (Free Text) Assessment: 62F with PMHx of HTN, MS, Sarcoidosis, Chronic Anemia seen at bedside after having partial nail avulsion of ingrown right hallux nail. Plan: Patient seen and evaluated Plan discussed with attending Dr. Puckett Charts, labs, vitals reviewed Afebrile Patient's partial nail avulsion site dressed with betadine, optifoam Patient instructed to keep dressing C/D/I No plan for further procedures at this point Patient stable from podiatric standpoint Podiatry will continue to follow
[2017-11-02] MEDS: Amino/Dext 4.25/5 1,000 ML IV SCH (18:33)
[2017-11-02] MEDS: POLYETHYLENE GLYCOL 3350 17 GM/Dose PACKET PO PRN (22:51)
[2017-11-03] MEDS: Albumin Human 25% (12.5 gm/50 ml) IV SCH ×4 (00:05→18:03)
[2017-11-03] MEDS: PrednisoLONE 1% Opht Susp(5 ml) OD SCH ×3 (05:43→22:15)
[2017-11-03] MEDS: Pantoprazole 40 mg EC Tab PO SCH (05:43)
[2017-11-03] MEDS: Oxycodone/Acetaminophen 10/325 mg Tab PO PRN ×4 (05:43→20:40)
[2017-11-03] MEDS: Amylase/Lipase/Protease 5,000 Units ECC PO SCH ×3 (08:41→18:02)
[2017-11-03] MEDS: PrednisoLONE 1% Opht Susp(5 ml) OS SCH ×2 (09:58→22:17)
[2017-11-03] MEDS: ADDERALL 10 MG PO SCH (09:59)
[2017-11-03] MEDS: Collagenase 250 Units/gm Ointment(30 gm) TOP SCH (10:00)
--- NOTE | 2017-11-03 11:46 | CP.PCM.PN ---
Subjective - Date & Time of Evaluation Date of Evaluation: 11/03/17 Time of Evaluation: 10:00 - Subjective Subjective: S&E at bedside, chart reviewed. No complaints of N/V or abdominal pain. Reported to have good appetite. Having BM, on Miralax now PRN. No reports of overt GI bleeding. Objective - Vital Signs/Intake and Output Vital Signs (last 24 hours): Temp Pulse Resp BP Pulse Ox 98 F 69 18 98/63 L 98 11/03/17 06:00 11/03/17 06:00 11/03/17 06:00 11/03/17 10:00 11/03/17 06:00 Intake and Output: 11/03/17 11/03/17 06:59 18:59 Intake Total 1368 Output Total 2600 Balance -1232 - Medications Medications: Current Medications Albumin Human (Albumin Human 25% (12.5 Gm/50 Ml)) 12.5 gm IV TID [facility] Last Admin: 11/03/17 10:13 Dose: 12.5 gm Amylase (Pancrease 46949 U-5000 U-26657 U) 5,000 unit PO ACTID [facility] Last Admin: 11/03/17 08:41 Dose: 5,000 unit Buspirone HCl (Buspar) 5 mg PO BID [facility] PRN Reason: Protocol Last Admin: 11/03/17 09:57 Dose: 5 mg Citalopram Hydrobromide (Celexa) 20 mg PO DAILY [facility] Last Admin: 11/03/17 09:58 Dose: 20 mg Collagenase (Santyl) 0 gm TOP DAILY [facility] Last Admin: 11/03/17 10:00 Dose: 1 applic Enoxaparin Sodium (Lovenox) 30 mg SC Q12H [facility] PRN Reason: Protocol Last Admin: 11/02/17 22:29 Dose: 30 mg Fentanyl (Duragesic) 1 patch TD Q72H [facility] Last Admin: 10/31/17 22:26 Dose: 1 patch Furosemide (Lasix) 40 mg IVP DAILY [facility] Last Admin: 11/03/17 10:00 Dose: 40 mg Gabapentin (Neurontin) 300 mg PO TID [facility] PRN Reason: Protocol Last Admin: 11/03/17 09:58 Dose: 300 mg Amino Acids (Clinimix 4.25/5 % (1000 Ml)) 1,000 mls @ 42 mls/hr IV .[id number] [facility] Last Admin: 11/02/17 18:33 Dose: 42 mls/hr Loratadine (Claritin) 10 mg PO DAILY PRN PRN Reason: Allergy symptoms Mupirocin (Bactroban Ointment) 0 gm TOP BID [facility] Last Admin: 11/03/17 09:59 Dose: 1 applic Adderall Xr 10 Mg ((Home Med)) 10 mg PO DAILY [facility] Last Admin: 11/03/17 09:59 Dose: Not Given Ondansetron HCl (Zofran Inj) 4 mg IVP Q6H PRN PRN Reason: Nausea/Vomiting Last Admin: 11/03/17 10:19 Dose: 4 mg Oxycodone/Acetaminophen (Percocet 10/325 Mg Tab) 1 tab PO Q4H PRN PRN Reason: Pain, moderate (4-7) Last Admin: 11/03/17 09:57 Dose: 1 tab Pantoprazole Sodium (Protonix Ec Tab) 40 mg PO 0600 [facility] Last Admin: 11/03/17 05:43 Dose: 40 mg Polyethylene Glycol (Miralax) 17 gm PO DAILY PRN PRN Reason: Constipation Last Admin: 11/02/17 22:51 Dose: 17 gm Prednisolone Acetate (Pred Forte 1% Opht Susp) 1 ml OD Q8 [facility] Last Admin: 11/03/17 05:43 Dose: 1 drop Prednisolone Acetate (Pred Forte 1% Opht Susp) 1 ml OS Q12 [facility] Last Admin: 11/03/17 09:58 Dose: 1 drop Spironolactone (Aldactone) 50 mg PO DAILY [facility] Last Admin: 11/03/17 09:58 Dose: 50 mg - Labs Labs: 10/30/17 06:30 11/01/17 12:00 PT 12.1 SECONDS (9.4-12.5) 10/28/17 23:50 INR 1.06 (0.93-1.08) 10/28/17 23:50 APTT 35.0 Seconds (25.1-36.5) 10/28/17 23:50 - Constitutional Appears: No Acute Distress, Cachectic - Eye Exam Eye Exam: Normal appearance. absent: Scleral icterus - ENT Exam ENT Exam: Mucous Membranes Moist - Neck Exam Neck Exam: Normal Inspection - Respiratory Exam Respiratory Exam: NORMAL BREATHING PATTERN. absent: Respiratory Distress - Cardiovascular Exam Cardiovascular Exam: +S1, +S2 - GI/Abdominal Exam GI & Abdominal Exam: Soft, Normal Bowel Sounds. absent: Guarding, Tenderness, Organomegaly, Rebound - Extremities Exam Extremities Exam: absent: Calf Tenderness, Pedal Edema - Neurological Exam Neurological Exam: Alert, Awake, Oriented x3 - Skin Skin Exam: Dry, Warm Assessment and Plan - Assessment and Plan (Free Text) Assessment: ASSESSMENT: Diarrhea, differential Malabsorption, previous MRCP no pancreatic mass noted Recurrent Ascites, s/p paracentesis, 3L removed Abnormal LFT, now improved Weight Loss Recent Exp lap, no mass seen 09/2017 Anemia PLAN: diet as tolerated celiac disease panel negative continue PPN on Miralax prn , if no BM 2days monitor LFT closely while on PPN on Pancreatic enzymes 5000U before meals DVT prophylaxsis GI propylaxsis Recommend outpatient PET order labs for am: cbc/cmp Seen and discussed w/ Dr. Alvarado.
--- NOTE | 2017-11-03 13:13 | PN ---
DATE: 11/03/2017 SUBJECTIVE: The patient is 62 years old, seen and examined. Awake, alert, oriented, okay appetite. No nausea, vomiting. Currently getting PPN. OBJECTIVE: VITAL SIGNS: She is afebrile, pulse 69, respirations 18, blood pressure 98/63. LUNGS: Bilateral fair airflow, no rhonchi or crackles. HEART: S1 and S2 audible. ABDOMEN: Soft, status post paracentesis, has 3 L fluid removed. No fluid thrill noted. EXTREMITIES: Bilateral leg edema has significantly improved. Her right pink toe is in dressing after she had I and D done for ingrown toenail. LABORATORY EXAM: Blood sugar is 114. Her AST is 73, ALT 113, albumin is 2.1. Her sacral wound growing MRSA. Urine has yeast. ASSESSMENT: 1. Malnutrition. 2. Hypoalbuminemia. 3. Chronic anemia. 4. History of bariatric surgery in the past with significant weight loss. Etiology for weight loss has been unclear. PLAN: Patient is currently on PPN. We will continue with that. We have to reach out to the insurance company to make arrangement for PPN for some time until the patient start gaining some weight and we know the etiology of weight loss that it is purely malnutrition or if there is underlying malignancy. I will talk to Dr. Guo to see when is her PET scan arranged, so we can decide the patient have PET scan done. I will follow her CBC and CMP for morning. Rad Onofre MD
--- NOTE | 2017-11-03 14:00 | CP.PCM.PN ---
Subjective - Date & Time of Evaluation Date of Evaluation: 11/03/17 Time of Evaluation: 13:57 - Subjective Subjective: 62 y/o female seen at bedside with attending Dr. Puckett 2 days after having partial nail avulsion of ingrown right hallux nail. Patient is AAO x 3 and NAD during visit. Denies any pain to the area. Denies noticing any redness, drainage , malodor or other clinical signs of infection. Denies any new pedal complaints. Denies F/C/CP/SOB Objective - Vital Signs/Intake and Output Vital Signs (last 24 hours): Temp Pulse Resp BP Pulse Ox 98.5 F 81 18 77/53 L 99 11/03/17 13:47 11/03/17 13:47 11/03/17 13:47 11/03/17 13:47 11/03/17 13:47 Intake and Output: 11/03/17 11/03/17 06:59 18:59 Intake Total 1368 240 Output Total 2600 900 Balance -1232 -660 - Medications Medications: Current Medications Albumin Human (Albumin Human 25% (12.5 Gm/50 Ml)) 12.5 gm IV TID [facility] Last Admin: 11/03/17 13:34 Dose: 12.5 gm Amylase (Pancrease 89648 U-5000 U-59984 U) 5,000 unit PO ACTID [facility] Last Admin: 11/03/17 13:07 Dose: 5,000 unit Buspirone HCl (Buspar) 5 mg PO BID [facility] PRN Reason: Protocol Last Admin: 11/03/17 09:57 Dose: 5 mg Citalopram Hydrobromide (Celexa) 20 mg PO DAILY [facility] Last Admin: 11/03/17 09:58 Dose: 20 mg Collagenase (Santyl) 0 gm TOP DAILY [facility] Last Admin: 11/03/17 10:00 Dose: 1 applic Enoxaparin Sodium (Lovenox) 30 mg SC Q12H [facility] PRN Reason: Protocol Last Admin: 11/02/17 22:29 Dose: 30 mg Fentanyl (Duragesic) 1 patch TD Q72H [facility] Last Admin: 10/31/17 22:26 Dose: 1 patch Furosemide (Lasix) 40 mg IVP DAILY [facility] Last Admin: 11/03/17 10:00 Dose: 40 mg Gabapentin (Neurontin) 300 mg PO TID [facility] PRN Reason: Protocol Last Admin: 11/03/17 09:58 Dose: 300 mg Amino Acids (Clinimix 4.25/5 % (1000 Ml)) 1,000 mls @ 42 mls/hr IV .[id number] [facility] Last Admin: 11/02/17 18:33 Dose: 42 mls/hr Loratadine (Claritin) 10 mg PO DAILY PRN PRN Reason: Allergy symptoms Mupirocin (Bactroban Ointment) 0 gm TOP BID [facility] Last Admin: 11/03/17 09:59 Dose: 1 applic Adderall Xr 10 Mg ((Home Med)) 10 mg PO DAILY [facility] Last Admin: 11/03/17 09:59 Dose: Not Given Ondansetron HCl (Zofran Inj) 4 mg IVP Q6H PRN PRN Reason: Nausea/Vomiting Last Admin: 11/03/17 10:19 Dose: 4 mg Oxycodone/Acetaminophen (Percocet 10/325 Mg Tab) 1 tab PO Q4H PRN PRN Reason: Pain, moderate (4-7) Last Admin: 11/03/17 09:57 Dose: 1 tab Pantoprazole Sodium (Protonix Ec Tab) 40 mg PO 0600 [facility] Last Admin: 11/03/17 05:43 Dose: 40 mg Polyethylene Glycol (Miralax) 17 gm PO DAILY PRN PRN Reason: Constipation Last Admin: 11/02/17 22:51 Dose: 17 gm Prednisolone Acetate (Pred Forte 1% Opht Susp) 1 ml OD Q8 [facility] Last Admin: 11/03/17 05:43 Dose: 1 drop Prednisolone Acetate (Pred Forte 1% Opht Susp) 1 ml OS Q12 [facility] Last Admin: 11/03/17 09:58 Dose: 1 drop Spironolactone (Aldactone) 50 mg PO DAILY [facility] Last Admin: 11/03/17 09:58 Dose: 50 mg - Labs Labs: 10/30/17 06:30 11/01/17 12:00 PT 12.1 SECONDS (9.4-12.5) 10/28/17 23:50 INR 1.06 (0.93-1.08) 10/28/17 23:50 APTT 35.0 Seconds (25.1-36.5) 10/28/17 23:50 - Constitutional Appears: Non-toxic, No Acute Distress, Older Than Stated Age, Cachectic - Extremities Exam Additional comments: LE focused exam: Vasc: DP/PT pulses palpable 1/4 B/L. Skin temperature warm to warm from proximal to distal. CFT < 3 seconds to all digits B/L. No edema noted to right hallux Neuro: Epicritic and protective sensation grossly intact B/L Derm: Evidence of partial nail avulsion of medial right hallux nail border. Mild erythema noted to distal and medial aspects of hallux. No malodor, drainage or other clinical signs of infection MSK: Minimal tenderness on palpation to partial nail avusion site. No other gross deformities noted - Neurological Exam Neurological Exam: Alert, Awake, Oriented x3 - Psychiatric Exam Psychiatric exam: Normal Affect, Normal Mood Assessment and Plan - Assessment and Plan (Free Text) Assessment: 62 y/o female 2 days s/p partial nail avulsion of ingrown right hallux nail medial border Plan: Patient seen and evaluated with attending Dr. Puckett Charts, labs, vitals reviewed Afebrile Patient's partial nail avulsion site dressed with betadine, optifoam Patient instructed to keep dressing C/D/I No plan for further procedures at this point Patient stable from podiatric standpoint Podiatry will continue to follow
--- NOTE | 2017-11-03 14:01 | CP.PCM.PN ---
Subjective - Date & Time of Evaluation Date of Evaluation: 11/03/17 Time of Evaluation: 10:55 - Subjective Subjective: Less pain in the right foot, no fevers, still feels weak. Objective - Vital Signs/Intake and Output Vital Signs (last 24 hours): Temp Pulse Resp BP Pulse Ox 98 F 69 18 98/63 L 98 11/03/17 06:00 11/03/17 06:00 11/03/17 06:00 11/03/17 06:00 11/03/17 06:00 Intake and Output: 11/03/17 11/03/17 06:59 18:59 Intake Total 1368 Output Total 2600 Balance -1232 - Medications Medications: Current Medications Albumin Human (Albumin Human 25% (12.5 Gm/50 Ml)) 12.5 gm IV TID [facility] Last Admin: 11/03/17 00:05 Dose: 12.5 gm Amylase (Pancrease 88703 U-5000 U-85376 U) 5,000 unit PO ACTID [facility] Last Admin: 11/03/17 08:41 Dose: 5,000 unit Buspirone HCl (Buspar) 5 mg PO BID [facility] PRN Reason: Protocol Last Admin: 11/02/17 20:07 Dose: Not Given Citalopram Hydrobromide (Celexa) 20 mg PO DAILY [facility] Last Admin: 11/02/17 11:11 Dose: 20 mg Collagenase (Santyl) 0 gm TOP DAILY [facility] Last Admin: 11/02/17 10:00 Dose: 1 applic Enoxaparin Sodium (Lovenox) 30 mg SC Q12H [facility] PRN Reason: Protocol Last Admin: 11/02/17 22:29 Dose: 30 mg Fentanyl (Duragesic) 1 patch TD Q72H [facility] Last Admin: 10/31/17 22:26 Dose: 1 patch Furosemide (Lasix) 40 mg IVP DAILY [facility] Last Admin: 11/02/17 11:09 Dose: 40 mg Gabapentin (Neurontin) 300 mg PO TID [facility] PRN Reason: Protocol Last Admin: 11/02/17 20:08 Dose: Not Given Amino Acids (Clinimix 4.25/5 % (1000 Ml)) 1,000 mls @ 42 mls/hr IV .[id number] [facility] Last Admin: 11/02/17 18:33 Dose: 42 mls/hr Loratadine (Claritin) 10 mg PO DAILY PRN PRN Reason: Allergy symptoms Mupirocin (Bactroban Ointment) 0 gm TOP BID [facility] Last Admin: 11/02/17 18:32 Dose: 1 applic Adderall Xr 10 Mg ((Home Med)) 10 mg PO DAILY [facility] Last Admin: 11/02/17 11:13 Dose: Not Given Ondansetron HCl (Zofran Inj) 4 mg IVP Q6H PRN PRN Reason: Nausea/Vomiting Last Admin: 11/02/17 11:10 Dose: 4 mg Oxycodone/Acetaminophen (Percocet 10/325 Mg Tab) 1 tab PO Q4H PRN PRN Reason: Pain, moderate (4-7) Last Admin: 11/03/17 05:43 Dose: 1 tab Pantoprazole Sodium (Protonix Ec Tab) 40 mg PO 0600 [facility] Last Admin: 11/03/17 05:43 Dose: 40 mg Polyethylene Glycol (Miralax) 17 gm PO DAILY PRN PRN Reason: Constipation Last Admin: 11/02/17 22:51 Dose: 17 gm Prednisolone Acetate (Pred Forte 1% Opht Susp) 1 ml OD Q8 [facility] Last Admin: 11/03/17 05:43 Dose: 1 drop Prednisolone Acetate (Pred Forte 1% Opht Susp) 1 ml OS Q12 [facility] Last Admin: 11/02/17 22:30 Dose: 1 drop Spironolactone (Aldactone) 50 mg PO DAILY [facility] Last Admin: 11/02/17 11:11 Dose: 50 mg - Labs Labs: 10/30/17 06:30 11/01/17 12:00 PT 12.1 SECONDS (9.4-12.5) 10/28/17 23:50 INR 1.06 (0.93-1.08) 10/28/17 23:50 APTT 35.0 Seconds (25.1-36.5) 10/28/17 23:50 - Constitutional Appears: Cachectic, Chronically Ill - Head Exam Head Exam: NORMAL INSPECTION - Respiratory Exam Respiratory Exam: Decreased Breath Sounds - Cardiovascular Exam Cardiovascular Exam: +S1, +S2 - GI/Abdominal Exam GI & Abdominal Exam: Soft. absent: Tenderness - Extremities Exam Additional comments: right foot with dressings in place Assessment and Plan - Assessment and Plan (Free Text) Plan: Assessment Asymptomatic candiduria in a patient with Smith catheter chronic sacral decubitus ulcer without evidence of acute infection right hallux local skin and skin structure infection, local history of E. coli UTI history of bilateral lower extremity cellulitis transamintis, etiology to be determined history of bilateral lower extremity skin and skin structure infection with MRSA and Klebsiella chronic anemia HTN multiple sclerosis sarcoidosis history of pancreatitis S/P left ureteral stent Plan continue Bactroban to sacral ulcer and right hallux; continue local wound care on the sacral ulcer reviewed Podiatry evaluation and recommendations for the right hallux recommend to replace Smith catheter - repeat urine cx is showing decreased load of yeast in the urine despite no specific antifungal treatment will continue to monitor clinically overall prognosis is poor
[2017-11-03] MEDS: Enoxaparin 30 mg Syringe SC SCH ×2 (14:30→22:20)
[2017-11-03] MEDS: Amino/Dext 4.25/5 1,000 ML IV SCH (18:09)
[2017-11-03] MEDS ORDERED: Sodium Chloride 0.9% 250 ML IV STA (19:40)
[2017-11-04] MEDS: Oxycodone/Acetaminophen 10/325 mg Tab PO PRN ×3 (01:59→15:43)
[2017-11-04] MEDS: Pantoprazole 40 mg EC Tab PO SCH (06:05)
[2017-11-04] MEDS: PrednisoLONE 1% Opht Susp(5 ml) OD SCH ×3 (06:05→23:19)
[2017-11-04 07:03] LABS: BASO # 0.02 K/mm3 (0.0-2.0); BASO % 0.5 % (0.0-3.0); EOS % 0.7 % (1.5-5.0); GRAN # 2.22 (1.4-6.5); GRAN % 52.9 % (50.0-68.0); HEMOGLOBIN 7.8 g/dL (12.0-16.0); LYMPH # 1.5 (1.2-3.4); LYMPH % 36.8 % (22.0-35.0); MEAN CELL VOLUME 96.3 fl (80.0-105.0); MEAN CORPUSCULAR HEMOGLOBIN 32.1 pg (25.0-35.0); MEAN CORPUSCULAR HGB CONC 33.3 g/dl (31.0-37.0); MEAN PLATELET VOLUME 8.6 fl (7.0-11.0); MONO # 0.4 (0.1-0.6); MONO % 9.1 % (1.0-6.0); RBC 2.43 10^6/uL (3.5-6.1); RED CELL DISTRIBUTION WIDTH 19.3 % (11.5-14.5); WHITE BLOOD COUNT 4.2 10^3/ul (4.5-11.0)
[2017-11-04 07:23] LABS: ALB/GLOB RATIO 1.4 (1.1-1.8); ALBUMIN 2.7 g/dL (3.0-4.8); ALT/SGPT 98 U/L (7-56); AST/SGOT 93 U/L (14-36); BLOOD UREA NITROGEN 27 mg/dL (7-21); CALCIUM 7.7 mg/dL (8.4-10.5); GFR AFRICAN-AMERICAN > 60; GFR NON-AFRICAN AMERICAN > 60
[2017-11-04] MEDS: Amylase/Lipase/Protease 5,000 Units ECC PO SCH ×3 (09:07→18:29)
--- NOTE | 2017-11-04 11:03 | CP.PCM.PN ---
Subjective - Date & Time of Evaluation Date of Evaluation: 11/04/17 Time of Evaluation: 10:00 - Subjective Subjective: S&E at bedside, chart reviewed, no acute overnight events reported. Hgb noted, no reports of melena, hematemsis. Patient does report feeling tired today. no N/ V or abdominal pain. Objective - Vital Signs/Intake and Output Vital Signs (last 24 hours): Temp Pulse Resp BP Pulse Ox 97.9 F 64 18 90/63 L 97 11/04/17 06:00 11/04/17 06:00 11/04/17 06:00 11/04/17 06:00 11/04/17 06:00 Intake and Output: 11/04/17 11/04/17 06:59 18:59 Intake Total 360 240 Output Total 600 500 Balance -240 -260 - Medications Medications: Current Medications Albumin Human (Albumin Human 25% (12.5 Gm/50 Ml)) 12.5 gm IV TID [facility] Last Admin: 11/03/17 18:03 Dose: 12.5 gm Amylase (Pancrease 48640 U-5000 U-13598 U) 5,000 unit PO ACTID [facility] Last Admin: 11/04/17 09:07 Dose: 5,000 unit Buspirone HCl (Buspar) 5 mg PO BID [facility] PRN Reason: Protocol Last Admin: 11/03/17 18:02 Dose: 5 mg Citalopram Hydrobromide (Celexa) 20 mg PO DAILY [facility] Last Admin: 11/03/17 09:58 Dose: 20 mg Collagenase (Santyl) 0 gm TOP DAILY [facility] Last Admin: 11/03/17 10:00 Dose: 1 applic Enoxaparin Sodium (Lovenox) 30 mg SC Q12H [facility] PRN Reason: Protocol Last Admin: 11/03/17 22:20 Dose: 30 mg Fentanyl (Duragesic) 1 patch TD Q72H [facility] Last Admin: 11/03/17 22:18 Dose: 1 patch Furosemide (Lasix) 20 mg IVP DAILY [facility] Gabapentin (Neurontin) 300 mg PO TID [facility] PRN Reason: Protocol Last Admin: 11/03/17 18:02 Dose: 300 mg Amino Acids (Clinimix 4.25/5 % (1000 Ml)) 1,000 mls @ 42 mls/hr IV .[id number] [facility] Last Admin: 11/03/17 18:09 Dose: 42 mls/hr Loratadine (Claritin) 10 mg PO DAILY PRN PRN Reason: Allergy symptoms Mupirocin (Bactroban Ointment) 0 gm TOP BID [facility] Last Admin: 11/03/17 18:04 Dose: 1 applic Adderall Xr 10 Mg ((Home Med)) 10 mg PO DAILY [facility] Last Admin: 11/03/17 09:59 Dose: Not Given Ondansetron HCl (Zofran Inj) 4 mg IVP Q6H PRN PRN Reason: Nausea/Vomiting Last Admin: 11/03/17 10:19 Dose: 4 mg Oxycodone/Acetaminophen (Percocet 10/325 Mg Tab) 1 tab PO Q4H PRN PRN Reason: Pain, moderate (4-7) Last Admin: 11/04/17 09:05 Dose: 1 tab Pantoprazole Sodium (Protonix Ec Tab) 40 mg PO 0600 [facility] Last Admin: 11/04/17 06:05 Dose: 40 mg Polyethylene Glycol (Miralax) 17 gm PO DAILY PRN PRN Reason: Constipation Last Admin: 11/02/17 22:51 Dose: 17 gm Prednisolone Acetate (Pred Forte 1% Opht Susp) 1 ml OD Q8 [facility] Last Admin: 11/04/17 06:05 Dose: 1 drop Prednisolone Acetate (Pred Forte 1% Opht Susp) 1 ml OS Q12 [facility] Last Admin: 11/03/17 22:17 Dose: 1 drop Spironolactone (Aldactone) 50 mg PO DAILY [facility] Last Admin: 11/03/17 09:58 Dose: 50 mg - Labs Labs: 11/04/17 06:50 11/04/17 06:50 PT 12.1 SECONDS (9.4-12.5) 10/28/17 23:50 INR 1.06 (0.93-1.08) 10/28/17 23:50 APTT 35.0 Seconds (25.1-36.5) 10/28/17 23:50 - Constitutional Appears: No Acute Distress, Cachectic - Eye Exam Eye Exam: Normal appearance. absent: Scleral icterus - ENT Exam ENT Exam: Mucous Membranes Moist - Respiratory Exam Respiratory Exam: NORMAL BREATHING PATTERN. absent: Respiratory Distress - Cardiovascular Exam Cardiovascular Exam: +S1, +S2 - GI/Abdominal Exam GI & Abdominal Exam: Soft, Normal Bowel Sounds. absent: Guarding, Tenderness, Rebound - Extremities Exam Extremities Exam: absent: Calf Tenderness, Pedal Edema - Neurological Exam Neurological Exam: Alert, Awake, Oriented x3 - Skin Skin Exam: Dry, Warm Assessment and Plan - Assessment and Plan (Free Text) Assessment: ASSESSMENT: Anemia Diarrhea, differential Malabsorption, previous MRCP no pancreatic mass noted Recurrent Ascites, s/p paracentesis, 3L removed Abnormal LFT, now improved Weight Loss/Malnutrion Recent Exp lap, no mass seen 09/2017 PLAN: diet as tolerated celiac disease panel negative continue PPN on Miralax prn , if no BM 2days monitor LFT closely while on PPN on Albumin on Pancreatic enzymes 5000U before meals DVT prophylaxsis GI propylaxsis Recommend outpatient PET for blood transfusion 2 U PRBC today Seen and discussed w/ Dr. Alvarado.
[2017-11-04] MEDS: ADDERALL 10 MG PO SCH (11:44)
[2017-11-04] MEDS: Enoxaparin 30 mg Syringe SC SCH ×3 (11:52→23:19)
--- NOTE | 2017-11-04 12:20 | CP.PCM.PN ---
<Heena Xiao - Last Filed: 11/04/17 12:19> Subjective - Date & Time of Evaluation Date of Evaluation: 11/04/17 Time of Evaluation: 12:19 - Subjective Subjective: 62 y/o female seen at bedside with attending Dr. Martínez, 3 days after having partial nail avulsion of ingrown right hallux nail. Patient is AAO x 3 and NAD during visit. Denies any pain to the area. Denies noticing any redness, drainage , malodor or other clinical signs of infection. States her dressing has remained intact and has kept the toe cushioned. Denies any new pedal complaints. Denies F/C/CP/SOB Objective - Vital Signs/Intake and Output Vital Signs (last 24 hours): Temp Pulse Resp BP Pulse Ox 97.9 F 64 18 90/63 L 97 11/04/17 06:00 11/04/17 06:00 11/04/17 06:00 11/04/17 06:00 11/04/17 06:00 Intake and Output: 11/04/17 11/04/17 06:59 18:59 Intake Total 360 240 Output Total 600 500 Balance -240 -260 - Medications Medications: Current Medications Albumin Human (Albumin Human 25% (12.5 Gm/50 Ml)) 12.5 gm IV DAILY [facility] Amylase (Pancrease 06632 U-5000 U-16409 U) 5,000 unit PO ACTID [facility] Last Admin: 11/04/17 11:51 Dose: 5,000 unit Buspirone HCl (Buspar) 5 mg PO BID [facility] PRN Reason: Protocol Last Admin: 11/04/17 11:55 Dose: 5 mg Citalopram Hydrobromide (Celexa) 20 mg PO DAILY [facility] Last Admin: 11/04/17 11:51 Dose: 20 mg Collagenase (Santyl) 0 gm TOP DAILY [facility] Last Admin: 11/03/17 10:00 Dose: 1 applic Enoxaparin Sodium (Lovenox) 30 mg SC Q12H [facility] PRN Reason: Protocol Last Admin: 11/04/17 11:52 Dose: 30 mg Fentanyl (Duragesic) 1 patch TD Q72H [facility] Last Admin: 11/03/17 22:18 Dose: 1 patch Furosemide (Lasix) 20 mg IVP DAILY [facility] Gabapentin (Neurontin) 300 mg PO TID [facility] PRN Reason: Protocol Last Admin: 11/04/17 11:52 Dose: 300 mg Amino Acids (Clinimix 4.25/5 % (1000 Ml)) 1,000 mls @ 42 mls/hr IV .[id number] [facility] Last Admin: 11/03/17 18:09 Dose: 42 mls/hr Loratadine (Claritin) 10 mg PO DAILY PRN PRN Reason: Allergy symptoms Mupirocin (Bactroban Ointment) 0 gm TOP BID [facility] Last Admin: 11/04/17 11:53 Dose: 1 applic Adderall Xr 10 Mg ((Home Med)) 10 mg PO DAILY [facility] Last Admin: 11/04/17 11:44 Dose: Not Given Ondansetron HCl (Zofran Inj) 4 mg IVP Q6H PRN PRN Reason: Nausea/Vomiting Last Admin: 11/03/17 10:19 Dose: 4 mg Oxycodone/Acetaminophen (Percocet 10/325 Mg Tab) 1 tab PO Q4H PRN PRN Reason: Pain, moderate (4-7) Last Admin: 11/04/17 09:05 Dose: 1 tab Pantoprazole Sodium (Protonix Ec Tab) 40 mg PO 0600 [facility] Last Admin: 11/04/17 06:05 Dose: 40 mg Polyethylene Glycol (Miralax) 17 gm PO DAILY PRN PRN Reason: Constipation Last Admin: 11/02/17 22:51 Dose: 17 gm Prednisolone Acetate (Pred Forte 1% Opht Susp) 1 ml OD Q8 [facility] Last Admin: 11/04/17 06:05 Dose: 1 drop Prednisolone Acetate (Pred Forte 1% Opht Susp) 1 ml OS Q12 [facility] Last Admin: 11/03/17 22:17 Dose: 1 drop Spironolactone (Aldactone) 50 mg PO DAILY [facility] Last Admin: 11/04/17 11:51 Dose: 50 mg - Labs Labs: 11/04/17 06:50 11/04/17 06:50 PT 12.1 SECONDS (9.4-12.5) 10/28/17 23:50 INR 1.06 (0.93-1.08) 10/28/17 23:50 APTT 35.0 Seconds (25.1-36.5) 10/28/17 23:50 - Constitutional Appears: Well, Non-toxic, No Acute Distress - Extremities Exam Additional comments: LE focused exam: Vasc: DP/PT pulses palpable 1/4 B/L. Skin temperature warm to warm from proximal to distal. CFT < 3 seconds to all digits B/L. No edema noted to right hallux Neuro: Epicritic and protective sensation grossly intact B/L Derm: Evidence of partial nail avulsion of medial right hallux nail border. Minimal erythema noted to distal and medial aspects of hallux, resolving at this time. No malodor, drainage or other clinical signs of infection MSK: Minimal tenderness on palpation to partial nail avusion site. No other gross deformities noted - Neurological Exam Neurological Exam: Alert, Awake, Oriented x3 - Psychiatric Exam Psychiatric exam: Normal Affect, Normal Mood Assessment and Plan - Assessment and Plan (Free Text) Assessment: 62 y/o female 3 days s/p partial nail avulsion of ingrown right hallux nail medial border Plan: Patient seen and evaluated with attending Dr. Martínez Charts, labs, vitals reviewed Afebrile, absent leukocytosis Patient's partial nail avulsion site dressed with betadine, optifoam Patient instructed to keep dressing C/D/I No plan for further procedures at this point Patient stable from podiatric standpoint Podiatry will continue to follow <Jose Guadalupe Martínez - Last Filed: 11/05/17 07:16> Objective - Vital Signs/Intake and Output Vital Signs (last 24 hours): Temp Pulse Resp BP Pulse Ox 98 F 75 19 101/59 L 99 11/05/17 05:56 11/05/17 05:56 11/05/17 05:56 11/05/17 05:56 11/04/17 22:00 Intake and Output: 11/05/17 11/05/17 06:59 18:59 Intake Total 1620 Output Total 1800 Balance -180 - Medications Medications: Current Medications Albumin Human (Albumin Human 25% (12.5 Gm/50 Ml)) 12.5 gm IV DAILY [facility] Amylase (Pancrease 51447 U-5000 U-88737 U) 5,000 unit PO ACTID [facility] Last Admin: 11/04/17 18:29 Dose: 5,000 unit Buspirone HCl (Buspar) 5 mg PO BID [facility] PRN Reason: Protocol Last Admin: 05/11/18 18:31 Dose: 5 mg Citalopram Hydrobromide (Celexa) 20 mg PO DAILY [facility] Last Admin: 11/04/17 11:51 Dose: 20 mg Collagenase (Santyl) 0 gm TOP DAILY [facility] Last Admin: 11/04/17 18:25 Dose: 1 applic Enoxaparin Sodium (Lovenox) 30 mg SC Q12H [facility] PRN Reason: Protocol Last Admin: 11/04/17 23:19 Dose: 30 mg Fentanyl (Duragesic) 1 patch TD Q72H [facility] Last Admin: 11/03/17 22:18 Dose: 1 patch Furosemide (Lasix) 20 mg IVP DAILY [facility] Last Admin: 11/04/17 15:08 Dose: Not Given Gabapentin (Neurontin) 300 mg PO TID [facility] PRN Reason: Protocol Last Admin: 11/04/17 19:41 Dose: 300 mg Amino Acids (Clinimix 4.25/5 % (1000 Ml)) 1,000 mls @ 42 mls/hr IV .[id number] [facility] Last Admin: 11/04/17 21:31 Dose: 42 mls/hr Loratadine (Claritin) 10 mg PO DAILY PRN PRN Reason: Allergy symptoms Mupirocin (Bactroban Ointment) 0 gm TOP BID [facility] Last Admin: 11/04/17 11:53 Dose: 1 applic Adderall Xr 10 Mg ((Home Med)) 10 mg PO DAILY [facility] Last Admin: 11/04/17 11:44 Dose: Not Given Ondansetron HCl (Zofran Inj) 4 mg IVP Q6H PRN PRN Reason: Nausea/Vomiting Last Admin: 11/03/17 10:19 Dose: 4 mg Oxycodone/Acetaminophen (Percocet 10/325 Mg Tab) 1 tab PO Q4H PRN PRN Reason: Pain, moderate (4-7) Last Admin: 11/05/17 06:15 Dose: 1 tab Pantoprazole Sodium (Protonix Ec Tab) 40 mg PO 0600 [facility] Last Admin: 11/05/17 06:05 Dose: 40 mg Polyethylene Glycol (Miralax) 17 gm PO DAILY PRN PRN Reason: Constipation Last Admin: 11/02/17 22:51 Dose: 17 gm Prednisolone Acetate (Pred Forte 1% Opht Susp) 1 ml OD Q8 [facility] Last Admin: 11/05/17 06:05 Dose: 1 drop Prednisolone Acetate (Pred Forte 1% Opht Susp) 1 ml OS Q12 [facility] Last Admin: 11/04/17 23:20 Dose: 1 drop Spironolactone (Aldactone) 50 mg PO DAILY [facility] Last Admin: 11/04/17 11:51 Dose: 50 mg - Labs Labs: 11/04/17 06:50 11/05/17 06:00 PT 12.1 SECONDS (9.4-12.5) 10/28/17 23:50 INR 1.06 (0.93-1.08) 10/28/17 23:50 APTT 35.0 Seconds (25.1-36.5) 10/28/17 23:50 Attending/Attestation - Attestation I have personally seen and examined this patient.: Yes I have fully participated in the care of the patient.: Yes I have reviewed all pertinent clinical information, including history, physical exam and plan: Yes
[2017-11-04] MEDS: PrednisoLONE 1% Opht Susp(5 ml) OS SCH ×2 (12:23→23:20)
--- NOTE | 2017-11-04 12:50 | CP.PCM.PN ---
Subjective - Date & Time of Evaluation Date of Evaluation: 11/04/17 Time of Evaluation: 10:55 - Subjective Subjective: Patient is feeling better, no fevers, improved pain in the right foot and sacral area, no diarrhea. Objective - Vital Signs/Intake and Output Vital Signs (last 24 hours): Temp Pulse Resp BP Pulse Ox 97.9 F 64 18 90/63 L 97 11/04/17 06:00 11/04/17 06:00 11/04/17 06:00 11/04/17 06:00 11/04/17 06:00 Intake and Output: 11/04/17 11/04/17 06:59 18:59 Intake Total 360 240 Output Total 600 500 Balance -240 -260 - Medications Medications: Current Medications Albumin Human (Albumin Human 25% (12.5 Gm/50 Ml)) 12.5 gm IV TID [facility] Last Admin: 11/03/17 18:03 Dose: 12.5 gm Amylase (Pancrease 54246 U-5000 U-69787 U) 5,000 unit PO ACTID [facility] Last Admin: 11/04/17 09:07 Dose: 5,000 unit Buspirone HCl (Buspar) 5 mg PO BID [facility] PRN Reason: Protocol Last Admin: 11/03/17 18:02 Dose: 5 mg Citalopram Hydrobromide (Celexa) 20 mg PO DAILY [facility] Last Admin: 11/03/17 09:58 Dose: 20 mg Collagenase (Santyl) 0 gm TOP DAILY [facility] Last Admin: 11/03/17 10:00 Dose: 1 applic Enoxaparin Sodium (Lovenox) 30 mg SC Q12H [facility] PRN Reason: Protocol Last Admin: 11/03/17 22:20 Dose: 30 mg Fentanyl (Duragesic) 1 patch TD Q72H [facility] Last Admin: 11/03/17 22:18 Dose: 1 patch Furosemide (Lasix) 20 mg IVP DAILY [facility] Gabapentin (Neurontin) 300 mg PO TID [facility] PRN Reason: Protocol Last Admin: 11/03/17 18:02 Dose: 300 mg Amino Acids (Clinimix 4.25/5 % (1000 Ml)) 1,000 mls @ 42 mls/hr IV .[id number] [facility] Last Admin: 11/03/17 18:09 Dose: 42 mls/hr Loratadine (Claritin) 10 mg PO DAILY [facility] PRN Reason: Allergy symptoms Mupirocin (Bactroban Ointment) 0 gm TOP BID [facility] Last Admin: 11/03/17 18:04 Dose: 1 applic Adderall Xr 10 Mg ((Home Med)) 10 mg PO DAILY [facility] Last Admin: 11/03/17 09:59 Dose: Not Given Ondansetron HCl (Zofran Inj) 4 mg IVP Q6H PRN PRN Reason: Nausea/Vomiting Last Admin: 11/03/17 10:19 Dose: 4 mg Oxycodone/Acetaminophen (Percocet 10/325 Mg Tab) 1 tab PO Q4H PRN PRN Reason: Pain, moderate (4-7) Last Admin: 11/04/17 09:05 Dose: 1 tab Pantoprazole Sodium (Protonix Ec Tab) 40 mg PO 0600 [facility] Last Admin: 11/04/17 06:05 Dose: 40 mg Polyethylene Glycol (Miralax) 17 gm PO DAILY PRN PRN Reason: Constipation Last Admin: 11/02/17 22:51 Dose: 17 gm Prednisolone Acetate (Pred Forte 1% Opht Susp) 1 ml OD Q8 [facility] Last Admin: 11/04/17 06:05 Dose: 1 drop Prednisolone Acetate (Pred Forte 1% Opht Susp) 1 ml OS Q12 [facility] Last Admin: 11/03/17 22:17 Dose: 1 drop Spironolactone (Aldactone) 50 mg PO DAILY [facility] Last Admin: 11/03/17 09:58 Dose: 50 mg - Labs Labs: 11/04/17 06:50 11/04/17 06:50 PT 12.1 SECONDS (9.4-12.5) 10/28/17 23:50 INR 1.06 (0.93-1.08) 10/28/17 23:50 APTT 35.0 Seconds (25.1-36.5) 10/28/17 23:50 - Constitutional Appears: Cachectic, Chronically Ill - Head Exam Head Exam: NORMAL INSPECTION - ENT Exam ENT Exam: Mucous Membranes Moist - Neck Exam Neck Exam: absent: Lymphadenopathy, Meningismus - Respiratory Exam Respiratory Exam: Decreased Breath Sounds - Cardiovascular Exam Cardiovascular Exam: +S1, +S2 - GI/Abdominal Exam GI & Abdominal Exam: Soft. absent: Tenderness - Extremities Exam Additional comments: right hallux with dressings in place Assessment and Plan - Assessment and Plan (Free Text) Plan: Assessment Asymptomatic candiduria in a patient with Smith catheter chronic sacral decubitus ulcer without evidence of acute infection but colonized with MRSA right hallux local skin and skin structure infection, local history of E. coli UTI history of bilateral lower extremity cellulitis transamintis, etiology to be determined history of bilateral lower extremity skin and skin structure infection with MRSA and Klebsiella chronic anemia HTN multiple sclerosis sarcoidosis history of pancreatitis S/P left ureteral stent Plan continue Bactroban to sacral ulcer and right hallux; continue local wound care on the sacral ulcer reviewed Podiatry evaluation and recommendations for the right hallux - continue local wound care recommend to replace Smith catheter - repeat urine cx is showing decreased load of yeast in the urine despite no specific antifungal treatment will continue to follow clinically overall prognosis is poor
--- NOTE | 2017-11-04 16:25 | PN ---
DATE: 11/04/2017 SUBJECTIVE: The patient is a 62-year-old, seen and examined, seems to be upset since her breakfast is cold. She states she cannot eat warm food, feeling hungry. PHYSICAL EXAMINATION: GENERAL: On examination today, she is upset but able to communicate. VITAL SIGNS: She is afebrile, pulse 64, respirations 18, blood pressure 90/63. LUNGS: Bilateral fair airflow. No rhonchi or crackle. HEART: S1 and S2 audible. ABDOMEN: Soft, nontender. No fluid thrill. NEUROLOGIC: She is awake, alert, oriented, communicative. LABORATORY EXAM: WBC 4.2, hemoglobin 7.8, hematocrit 23.4, platelet 146. Chemistry: Sodium 139, potassium 4.2, chloride 102, CO2 of 27, BUN 27, creatinine 0.6. Blood sugar of 111. AST 93, ALT 98. Urine has yeast. ASSESSMENT: 1. Malnutrition, etiology is still unclear. 2. Significant weight loss. 3. History of Adderall dependence that could be the reason for her weight loss and poor appetite. 4. Hypoalbuminemia. 5. History of gastric sleeve probably could be the reason for malabsorption. 6. Chronic anemia. 7. Acute on chronic anemia. 8. Hypotension. PLAN: We will transfuse patient two packed RBCs. We will cut down her albumin. Continue her on TPN. Discussed with Dr. Alvarado. We will follow up CBC and CMP in the a.m. Rad Onofre MD
[2017-11-04] MEDS: Collagenase 250 Units/gm Ointment(30 gm) TOP SCH (18:25)
[2017-11-04] MEDS: Albumin Human 25% (12.5 gm/50 ml) IV SCH (18:26)
[2017-11-04] MEDS: Amino/Dext 4.25/5 1,000 ML IV SCH (21:31)
[2017-11-05] MEDS: Oxycodone/Acetaminophen 10/325 mg Tab PO PRN ×4 (00:47→19:14)
[2017-11-05] MEDS: PrednisoLONE 1% Opht Susp(5 ml) OD SCH ×3 (06:05→21:36)
[2017-11-05] MEDS: Pantoprazole 40 mg EC Tab PO SCH (06:05)
[2017-11-05 07:12] LABS: ALB/GLOB RATIO 1.3 (1.1-1.8); ALBUMIN 2.6 g/dL (3.0-4.8); ALT/SGPT 103 U/L (7-56); AST/SGOT 89 U/L (14-36); BLOOD UREA NITROGEN 30 mg/dL (7-21); CALCIUM 7.8 mg/dL (8.4-10.5); GFR AFRICAN-AMERICAN > 60; GFR NON-AFRICAN AMERICAN > 60
[2017-11-05] MEDS: Amylase/Lipase/Protease 5,000 Units ECC PO SCH ×3 (07:30→18:53)
[2017-11-05 08:52] LABS: HEMOGLOBIN 11.1 g/dL (12.0-16.0); MEAN CELL VOLUME 91.6 fl (80.0-105.0); MEAN CORPUSCULAR HEMOGLOBIN 31.1 pg (25.0-35.0); MEAN CORPUSCULAR HGB CONC 33.9 g/dl (31.0-37.0); MEAN PLATELET VOLUME 8.8 fl (7.0-11.0); RBC 3.57 10^6/uL (3.5-6.1); RED CELL DISTRIBUTION WIDTH 18.7 % (11.5-14.5)
--- NOTE | 2017-11-05 09:30 | CP.PCM.PN ---
<Pop ePrea - Last Filed: 11/05/17 09:27> Subjective - Date & Time of Evaluation Date of Evaluation: 11/05/17 Time of Evaluation: 09:27 - Subjective Subjective: 62 y/o female seen at bedside with attending Dr. Martínez, 4 days after having partial nail avulsion of ingrown right hallux nail. Patient is AAO x 3 and NAD during visit. Laying comfortably in bed. Reports no pain. Denies any new pedal complaints. Denies F/C/CP/SOB/V Objective - Vital Signs/Intake and Output Vital Signs (last 24 hours): Temp Pulse Resp BP Pulse Ox 98 F 75 19 101/59 L 99 11/05/17 05:56 11/05/17 05:56 11/05/17 05:56 11/05/17 05:56 11/04/17 22:00 Intake and Output: 11/05/17 11/05/17 06:59 18:59 Intake Total 1620 Output Total 1800 Balance -180 - Medications Medications: Current Medications Albumin Human (Albumin Human 25% (12.5 Gm/50 Ml)) 12.5 gm IV DAILY [facility] Amylase (Pancrease 62866 U-5000 [id number] U) 5,000 unit PO ACTID [facility] Last Admin: 11/04/17 18:29 Dose: 5,000 unit Buspirone HCl (Buspar) 5 mg PO BID [facility] PRN Reason: Protocol Last Admin: 11/04/17 18:31 Dose: 5 mg Citalopram Hydrobromide (Celexa) 20 mg PO DAILY [facility] Last Admin: 11/04/17 11:51 Dose: 20 mg Collagenase (Santyl) 0 gm TOP DAILY [facility] Last Admin: 11/04/17 18:25 Dose: 1 applic Enoxaparin Sodium (Lovenox) 30 mg SC Q12H [facility] PRN Reason: Protocol Last Admin: 11/04/17 23:19 Dose: 30 mg Fentanyl (Duragesic) 1 patch TD Q72H [facility] Last Admin: 11/03/17 22:18 Dose: 1 patch Furosemide (Lasix) 20 mg IVP DAILY [facility] Last Admin: 11/04/17 15:08 Dose: Not Given Gabapentin (Neurontin) 300 mg PO TID [facility] PRN Reason: Protocol Last Admin: 11/04/17 19:41 Dose: 300 mg Amino Acids (Clinimix 4.25/5 % (1000 Ml)) 1,000 mls @ 42 mls/hr IV .[id number] [facility] Last Admin: 11/04/17 21:31 Dose: 42 mls/hr Loratadine (Claritin) 10 mg PO DAILY PRN PRN Reason: Allergy symptoms Mupirocin (Bactroban Ointment) 0 gm TOP BID [facility] Last Admin: 11/04/17 11:53 Dose: 1 applic Adderall Xr 10 Mg ((Home Med)) 10 mg PO DAILY [facility] Last Admin: 11/04/17 11:44 Dose: Not Given Ondansetron HCl (Zofran Inj) 4 mg IVP Q6H PRN PRN Reason: Nausea/Vomiting Last Admin: 11/03/17 10:19 Dose: 4 mg Oxycodone/Acetaminophen (Percocet 10/325 Mg Tab) 1 tab PO Q4H PRN PRN Reason: Pain, moderate (4-7) Last Admin: 11/05/17 06:15 Dose: 1 tab Pantoprazole Sodium (Protonix Ec Tab) 40 mg PO 0600 [facility] Last Admin: 11/05/17 06:05 Dose: 40 mg Polyethylene Glycol (Miralax) 17 gm PO DAILY PRN PRN Reason: Constipation Last Admin: 11/02/17 22:51 Dose: 17 gm Prednisolone Acetate (Pred Forte 1% Opht Susp) 1 ml OD Q8 [facility] Last Admin: 11/05/17 06:05 Dose: 1 drop Prednisolone Acetate (Pred Forte 1% Opht Susp) 1 ml OS Q12 [facility] Last Admin: 11/04/17 23:20 Dose: 1 drop Spironolactone (Aldactone) 50 mg PO DAILY [facility] Last Admin: 11/04/17 11:51 Dose: 50 mg - Labs Labs: 11/05/17 08:10 11/05/17 06:00 PT 12.1 SECONDS (9.4-12.5) 10/28/17 23:50 INR 1.06 (0.93-1.08) 10/28/17 23:50 APTT 35.0 Seconds (25.1-36.5) 10/28/17 23:50 - Constitutional Appears: Well, Non-toxic, No Acute Distress - Extremities Exam Extremities Exam: absent: Calf Tenderness Additional comments: LE focused exam: Vasc: DP/PT pulses palpable 1/4 B/L. Skin temperature warm to warm from proximal to distal. CFT < 3 seconds to all digits B/L. No edema noted to right hallux Neuro: Epicritic and protective sensation grossly intact B/L Derm: Evidence of partial nail avulsion of medial right hallux nail border. Minimal erythema noted to distal and medial aspects of hallux, resolving at this time. No malodor, drainage or other clinical signs of infection MSK: Minimal tenderness on palpation to partial nail avusion site. No other gross deformities noted - Neurological Exam Neurological Exam: Alert, Awake, Oriented x3 - Psychiatric Exam Psychiatric exam: Normal Affect, Normal Mood Assessment and Plan - Assessment and Plan (Free Text) Assessment: 62 y/o female 4 days s/p partial nail avulsion of ingrown right hallux nail medial border Plan: Patient seen and evaluated with attending Dr. Martínez Charts, labs, vitals reviewed Afebrile, absent leukocytosis Patient's partial nail avulsion site dressed with betadine, optifoam Nursing may change daily, cleansed with betadine, and optifoam/bandage Patient instructed to keep dressing C/D/I No plan for further procedures at this point Patient stable from podiatric standpoint Podiatry will sign off <Jose Guadalupe Martínez - Last Filed: 11/08/17 11:53> Objective - Vital Signs/Intake and Output Vital Signs (last 24 hours): Temp Pulse Resp BP Pulse Ox 97.9 F 71 20 90/60 L 97 11/08/17 06:00 11/08/17 06:00 11/08/17 06:00 11/08/17 10:01 11/08/17 06:00 Intake and Output: 11/08/17 11/08/17 06:59 18:59 Intake Total 840 240 Output Total 1400 400 Balance -560 -160 - Medications Medications: Current Medications Albumin Human (Albumin Human 25% (12.5 Gm/50 Ml)) 12.5 gm IV DAILY [facility] Last Admin: 11/07/17 10:20 Dose: 12.5 gm Amylase (Pancrease 82256 U-5000 U-[id number] U) 5,000 unit PO ACTID [facility] Last Admin: 11/08/17 08:00 Dose: 5,000 unit Buspirone HCl (Buspar) 5 mg PO BID [facility] PRN Reason: Protocol Last Admin: 11/08/17 09:57 Dose: 5 mg Citalopram Hydrobromide (Celexa) 20 mg PO DAILY [facility] Last Admin: 11/08/17 10:01 Dose: 20 mg Collagenase (Santyl) 0 gm TOP DAILY [facility] Last Admin: 11/08/17 10:04 Dose: 1 applic Enoxaparin Sodium (Lovenox) 30 mg SC Q12H [facility] PRN Reason: Protocol Last Admin: 11/07/17 21:34 Dose: 30 mg Fentanyl (Duragesic) 1 patch TD Q72H [facility] Last Admin: 11/06/17 22:09 Dose: 1 patch Furosemide (Lasix) 20 mg IVP DAILY [facility] Last Admin: 11/08/17 10:01 Dose: 20 mg Gabapentin (Neurontin) 300 mg PO TID [facility] PRN Reason: Protocol Last Admin: 11/08/17 09:57 Dose: 300 mg Amino Acids (Clinimix 5/20 % (1000 Ml)) 1,000 mls @ 41.667 mls/hr IV .Q24H [facility] Loratadine (Claritin) 10 mg PO DAILY PRN PRN Reason: Allergy symptoms Last Admin: 11/07/17 21:36 Dose: 10 mg Mupirocin (Bactroban Ointment) 0 gm TOP BID [facility] Last Admin: 11/08/17 09:57 Dose: 1 applic Adderall Xr 10 Mg ((Home Med)) 10 mg PO DAILY [facility] Last Admin: 11/08/17 10:11 Dose: Not Given Ondansetron HCl (Zofran Inj) 4 mg IVP Q6H PRN PRN Reason: Nausea/Vomiting Last Admin: 11/08/17 10:01 Dose: 4 mg Oxycodone/Acetaminophen (Percocet 10/325 Mg Tab) 1 tab PO Q4H PRN PRN Reason: Pain, moderate (4-7) Last Admin: 11/08/17 10:17 Dose: 1 tab Pantoprazole Sodium (Protonix Ec Tab) 40 mg PO 0600 [facility] Last Admin: 11/08/17 05:38 Dose: 40 mg Polyethylene Glycol (Miralax) 17 gm PO DAILY PRN PRN Reason: Constipation Last Admin: 05/14/18 09:17 Dose: 17 gm Prednisolone Acetate (Pred Forte 1% Opht Susp) 1 ml OD Q8 [facility] Last Admin: 11/08/17 05:39 Dose: 1 drop Prednisolone Acetate (Pred Forte 1% Opht Susp) 1 ml OS Q12 [facility] Last Admin: 11/08/17 10:09 Dose: 1 drop Spironolactone (Aldactone) 50 mg PO DAILY [facility] Last Admin: 11/08/17 09:57 Dose: 50 mg - Labs Labs: 11/07/17 07:30 11/07/17 07:30 PT 12.1 SECONDS (9.4-12.5) 10/28/17 23:50 INR 1.06 (0.93-1.08) 10/28/17 23:50 APTT 35.0 Seconds (25.1-36.5) 10/28/17 23:50 Attending/Attestation - Attestation I have personally seen and examined this patient.: Yes I have fully participated in the care of the patient.: Yes I have reviewed all pertinent clinical information, including history, physical exam and plan: Yes
[2017-11-05] MEDS: ADDERALL 10 MG PO SCH (11:32)
[2017-11-05] MEDS: Enoxaparin 30 mg Syringe SC SCH ×2 (11:33→21:36)
[2017-11-05] MEDS: Albumin Human 25% (12.5 gm/50 ml) IV SCH (11:47)
[2017-11-05] MEDS: PrednisoLONE 1% Opht Susp(5 ml) OS SCH ×2 (11:48→21:37)
[2017-11-05] MEDS: Collagenase 250 Units/gm Ointment(30 gm) TOP SCH (11:48)
--- NOTE | 2017-11-05 14:17 | CP.PCM.PN ---
Subjective - Date & Time of Evaluation Date of Evaluation: 11/05/17 Time of Evaluation: 12:40 - Subjective Subjective: Comfortable, improved pain in the right foot, no nausea, no fevers, no dysuria, no suprapubic pain. Objective - Vital Signs/Intake and Output Vital Signs (last 24 hours): Temp Pulse Resp BP Pulse Ox 98 F 75 19 101/59 L 99 11/05/17 05:56 11/05/17 05:56 11/05/17 05:56 11/05/17 05:56 11/04/17 22:00 Intake and Output: 11/05/17 11/05/17 06:59 18:59 Intake Total 1620 Output Total 1800 Balance -180 - Medications Medications: Current Medications Albumin Human (Albumin Human 25% (12.5 Gm/50 Ml)) 12.5 gm IV DAILY [facility] Amylase (Pancrease 31816 U-5000 U-[id number] U) 5,000 unit PO ACTID [facility] Last Admin: 11/04/17 18:29 Dose: 5,000 unit Buspirone HCl (Buspar) 5 mg PO BID [facility] PRN Reason: Protocol Last Admin: 11/04/17 18:31 Dose: 5 mg Citalopram Hydrobromide (Celexa) 20 mg PO DAILY [facility] Last Admin: 11/04/17 11:51 Dose: 20 mg Collagenase (Santyl) 0 gm TOP DAILY [facility] Last Admin: 11/04/17 18:25 Dose: 1 applic Enoxaparin Sodium (Lovenox) 30 mg SC Q12H [facility] PRN Reason: Protocol Last Admin: 11/04/17 23:19 Dose: 30 mg Fentanyl (Duragesic) 1 patch TD Q72H [facility] Last Admin: 11/03/17 22:18 Dose: 1 patch Furosemide (Lasix) 20 mg IVP DAILY [facility] Last Admin: 11/04/17 15:08 Dose: Not Given Gabapentin (Neurontin) 300 mg PO TID [facility] PRN Reason: Protocol Last Admin: 11/04/17 19:41 Dose: 300 mg Amino Acids (Clinimix 4.25/5 % (1000 Ml)) 1,000 mls @ 42 mls/hr IV .[id number] [facility] Last Admin: 11/04/17 21:31 Dose: 42 mls/hr Loratadine (Claritin) 10 mg PO DAILY PRN PRN Reason: Allergy symptoms Mupirocin (Bactroban Ointment) 0 gm TOP BID [facility] Last Admin: 11/04/17 11:53 Dose: 1 applic Adderall Xr 10 Mg ((Home Med)) 10 mg PO DAILY [facility] Last Admin: 11/04/17 11:44 Dose: Not Given Ondansetron HCl (Zofran Inj) 4 mg IVP Q6H PRN PRN Reason: Nausea/Vomiting Last Admin: 11/03/17 10:19 Dose: 4 mg Oxycodone/Acetaminophen (Percocet 10/325 Mg Tab) 1 tab PO Q4H PRN PRN Reason: Pain, moderate (4-7) Last Admin: 11/05/17 06:15 Dose: 1 tab Pantoprazole Sodium (Protonix Ec Tab) 40 mg PO 0600 [facility] Last Admin: 11/05/17 06:05 Dose: 40 mg Polyethylene Glycol (Miralax) 17 gm PO DAILY PRN PRN Reason: Constipation Last Admin: 11/02/17 22:51 Dose: 17 gm Prednisolone Acetate (Pred Forte 1% Opht Susp) 1 ml OD Q8 [facility] Last Admin: 11/05/17 06:05 Dose: 1 drop Prednisolone Acetate (Pred Forte 1% Opht Susp) 1 ml OS Q12 [facility] Last Admin: 11/04/17 23:20 Dose: 1 drop Spironolactone (Aldactone) 50 mg PO DAILY [facility] Last Admin: 11/04/17 11:51 Dose: 50 mg - Labs Labs: 11/04/17 06:50 11/04/17 06:50 PT 12.1 SECONDS (9.4-12.5) 10/28/17 23:50 INR 1.06 (0.93-1.08) 10/28/17 23:50 APTT 35.0 Seconds (25.1-36.5) 10/28/17 23:50 - Constitutional Appears: Cachectic, Chronically Ill - Head Exam Head Exam: NORMAL INSPECTION - ENT Exam ENT Exam: Mucous Membranes Moist - Neck Exam Neck Exam: absent: Lymphadenopathy, Meningismus - Respiratory Exam Respiratory Exam: Decreased Breath Sounds - Cardiovascular Exam Cardiovascular Exam: +S1, +S2 - GI/Abdominal Exam GI & Abdominal Exam: Soft. absent: Tenderness - Extremities Exam Additional comments: right foot with dressings in place Assessment and Plan - Assessment and Plan (Free Text) Plan: Assessment Asymptomatic candiduria in a patient with Smith catheter chronic sacral decubitus ulcer without evidence of acute infection but colonized with MRSA right hallux local skin and skin structure infection, local history of E. coli UTI history of bilateral lower extremity cellulitis history of bilateral lower extremity skin and skin structure infection with MRSA and Klebsiella chronic anemia HTN multiple sclerosis sarcoidosis history of pancreatitis S/P left ureteral stent Plan continue Bactroban to sacral ulcer and right hallux; continue local wound care on the sacral ulcer reviewed Podiatry evaluation and recommendations for the right hallux - continue local wound care recommend to replace Smith catheter - repeat urine cx is showing decreased load of yeast in the urine despite no specific antifungal treatment - will repeat urine cx again will continue to follow clinically overall prognosis is poor
[2017-11-05] MEDS: Amino/Dext 4.25/5 1,000 ML IV SCH (18:55)
[2017-11-06] MEDS: Oxycodone/Acetaminophen 10/325 mg Tab PO PRN ×4 (04:03→18:17)
[2017-11-06] MEDS: Pantoprazole 40 mg EC Tab PO SCH (05:29)
[2017-11-06] MEDS: PrednisoLONE 1% Opht Susp(5 ml) OD SCH ×3 (05:29→22:10)
[2017-11-06] MEDS: Amylase/Lipase/Protease 5,000 Units ECC PO SCH ×3 (08:34→18:17)
[2017-11-06] MEDS: Enoxaparin 30 mg Syringe SC SCH ×2 (10:56→22:09)
[2017-11-06] MEDS: Albumin Human 25% (12.5 gm/50 ml) IV SCH (10:57)
[2017-11-06] MEDS: ADDERALL 10 MG PO SCH (10:58)
[2017-11-06] MEDS: Collagenase 250 Units/gm Ointment(30 gm) TOP SCH (10:58)
[2017-11-06] MEDS: PrednisoLONE 1% Opht Susp(5 ml) OS SCH ×2 (10:58→22:10)
--- NOTE | 2017-11-06 14:02 | CP.PCM.PN ---
Subjective - Date & Time of Evaluation Date of Evaluation: 11/06/17 Time of Evaluation: 10:20 - Subjective Subjective: No fevers, not in distress, improved pain in the right foot, no suprapubic pain. Objective - Vital Signs/Intake and Output Vital Signs (last 24 hours): Temp Pulse Resp BP Pulse Ox 97.6 F 66 20 98/67 L 97 11/05/17 22:00 11/06/17 04:00 11/05/17 22:00 11/06/17 04:00 11/05/17 22:00 Intake and Output: 11/06/17 11/06/17 06:59 18:59 Intake Total 2148 Output Total 1375 Balance 773 - Medications Medications: Current Medications Albumin Human (Albumin Human 25% (12.5 Gm/50 Ml)) 12.5 gm IV DAILY [facility] Last Admin: 11/05/17 11:47 Dose: 12.5 gm Amylase (Pancrease 63702 U-5000 U-30402 U) 5,000 unit PO ACTID [facility] Last Admin: 11/05/17 18:53 Dose: 5,000 unit Buspirone HCl (Buspar) 5 mg PO BID [facility] PRN Reason: Protocol Last Admin: 11/05/17 18:53 Dose: 5 mg Citalopram Hydrobromide (Celexa) 20 mg PO DAILY [facility] Last Admin: 11/05/17 11:35 Dose: 20 mg Collagenase (Santyl) 0 gm TOP DAILY [facility] Last Admin: 11/05/17 11:48 Dose: 1 applic Enoxaparin Sodium (Lovenox) 30 mg SC Q12H [facility] PRN Reason: Protocol Last Admin: 11/05/17 21:36 Dose: 30 mg Fentanyl (Duragesic) 1 patch TD Q72H [facility] Last Admin: 11/03/17 22:18 Dose: 1 patch Furosemide (Lasix) 20 mg IVP DAILY [facility] Last Admin: 11/05/17 11:30 Dose: 20 mg Gabapentin (Neurontin) 300 mg PO TID [facility] PRN Reason: Protocol Last Admin: 11/05/17 19:14 Dose: 300 mg Amino Acids (Clinimix 4.25/5 % (1000 Ml)) 1,000 mls @ 42 mls/hr IV .[id number] [facility] Last Admin: 11/05/17 18:55 Dose: 42 mls/hr Loratadine (Claritin) 10 mg PO DAILY PRN PRN Reason: Allergy symptoms Mupirocin (Bactroban Ointment) 0 gm TOP BID [facility] Last Admin: 11/05/17 18:54 Dose: 1 applic Adderall Xr 10 Mg ((Home Med)) 10 mg PO DAILY [facility] Last Admin: 11/05/17 11:32 Dose: Not Given Ondansetron HCl (Zofran Inj) 4 mg IVP Q6H PRN PRN Reason: Nausea/Vomiting Last Admin: 11/03/17 10:19 Dose: 4 mg Oxycodone/Acetaminophen (Percocet 10/325 Mg Tab) 1 tab PO Q4H PRN PRN Reason: Pain, moderate (4-7) Last Admin: 11/06/17 04:03 Dose: 1 tab Pantoprazole Sodium (Protonix Ec Tab) 40 mg PO 0600 [facility] Last Admin: 11/06/17 05:29 Dose: 40 mg Polyethylene Glycol (Miralax) 17 gm PO DAILY PRN PRN Reason: Constipation Last Admin: 11/02/17 22:51 Dose: 17 gm Prednisolone Acetate (Pred Forte 1% Opht Susp) 1 ml OD Q8 [facility] Last Admin: 11/06/17 05:29 Dose: 1 drop Prednisolone Acetate (Pred Forte 1% Opht Susp) 1 ml OS Q12 [facility] Last Admin: 11/05/17 21:37 Dose: 1 drop Spironolactone (Aldactone) 50 mg PO DAILY [facility] Last Admin: 11/05/17 11:32 Dose: 50 mg - Labs Labs: 11/05/17 08:10 11/05/17 06:00 PT 12.1 SECONDS (9.4-12.5) 10/28/17 23:50 INR 1.06 (0.93-1.08) 10/28/17 23:50 APTT 35.0 Seconds (25.1-36.5) 10/28/17 23:50 - Constitutional Appears: Cachectic, Chronically Ill - Head Exam Head Exam: NORMAL INSPECTION - Neck Exam Neck Exam: absent: Meningismus - Respiratory Exam Respiratory Exam: Decreased Breath Sounds - Cardiovascular Exam Cardiovascular Exam: +S1, +S2 - GI/Abdominal Exam GI & Abdominal Exam: Soft. absent: Tenderness Assessment and Plan - Assessment and Plan (Free Text) Plan: Assessment Asymptomatic candiduria in a patient with Smith catheter chronic sacral decubitus ulcer without evidence of acute infection but colonized with MRSA right hallux local skin and skin structure infection, local history of E. coli UTI history of bilateral lower extremity cellulitis history of bilateral lower extremity skin and skin structure infection with MRSA and Klebsiella chronic anemia HTN multiple sclerosis sarcoidosis history of pancreatitis S/P left ureteral stent Plan continue Bactroban to sacral ulcer and right hallux; continue local wound care on the sacral ulcer reviewed Podiatry evaluation and recommendations for the right hallux - continue local wound care follow up repeat urine cx after Smith catheter in replaced - previous urine cx showed decreased load of yeast in the urine despite no specific antifungal treatment will continue to follow clinically overall prognosis is poor
--- NOTE | 2017-11-06 17:04 | PN ---
DATE: 11/06/2017 SUBJECTIVE: The patient is 62 years old, seen and examined, lying in bed, seems to be comfortable. Has back pain. Has generalized body aches and pain. PHYSICAL EXAMINATION: VITAL SIGNS: The patient is afebrile, pulse 75, respirations 20, blood pressure 82/55. LUNGS: Bilateral fair airflow. No rhonchi or crackle. HEART: S1 and S2 audible. ABDOMEN: Soft. No rebound. No guarding. NEUROLOGIC: The patient is awake and alert, able to communicate. EXTREMITIES: Bilateral leg, no edema, no ulcers. LABORATORY EXAM: Blood sugar is 96. ASSESSMENT: 1. Malnutrition. 2. Currently, the patient is on PPN. 3. Asymptomatic urinary candidiasis, probably colonization. 4. Stage IV decubitus ulcer. 5. History of bariatric surgery and malnutrition secondary to diet. 6. Chronic anemia. 7. Hypoalbuminemia. 8. Hypotension. 9. History of multiple sclerosis. 10. History of nephrolithiasis, had stent placed, but it was removed later on. PLAN: I will continue the patient on PPN. We will monitor her CBC and CMP in the a.m. We will discuss with Funding Analyst to make plan for discharge in a place where she can received PPN. Rad Onofre MD
[2017-11-06] MEDS: Amino/Dext 4.25/5 1,000 ML IV SCH (20:22)
[2017-11-07] MEDS: Oxycodone/Acetaminophen 10/325 mg Tab PO PRN ×4 (01:34→19:59)
[2017-11-07] MEDS: PrednisoLONE 1% Opht Susp(5 ml) OD SCH ×3 (06:44→21:35)
[2017-11-07] MEDS: Pantoprazole 40 mg EC Tab PO SCH (06:45)
[2017-11-07 07:56] LABS: BASO # 0.03 K/mm3 (0.0-2.0); BASO % 0.7 % (0.0-3.0); EOS % 0.7 % (1.5-5.0); GRAN # 2.17 (1.4-6.5); GRAN % 47.5 % (50.0-68.0); HEMOGLOBIN 10.4 g/dL (12.0-16.0); LYMPH # 1.7 (1.2-3.4); LYMPH % 36.6 % (22.0-35.0); MEAN CELL VOLUME 93.1 fl (80.0-105.0); MEAN CORPUSCULAR HEMOGLOBIN 31.4 pg (25.0-35.0); MEAN CORPUSCULAR HGB CONC 33.8 g/dl (31.0-37.0); MEAN PLATELET VOLUME 8.8 fl (7.0-11.0); MONO # 0.7 (0.1-0.6); MONO % 14.5 % (1.0-6.0); RBC 3.31 10^6/uL (3.5-6.1); RED CELL DISTRIBUTION WIDTH 19.1 % (11.5-14.5); WHITE BLOOD COUNT 4.6 10^3/ul (4.5-11.0)
[2017-11-07 08:07] LABS: ALB/GLOB RATIO 1.3 (1.1-1.8); ALBUMIN 2.7 g/dL (3.0-4.8); ALT/SGPT 125 U/L (7-56); AST/SGOT 114 U/L (14-36); BLOOD UREA NITROGEN 34 mg/dL (7-21); CALCIUM 8.1 mg/dL (8.4-10.5); GFR AFRICAN-AMERICAN > 60; GFR NON-AFRICAN AMERICAN > 60
[2017-11-07] MEDS: Amylase/Lipase/Protease 5,000 Units ECC PO SCH ×3 (08:23→16:50)
--- NOTE | 2017-11-07 08:35 | PN ---
DATE: 11/05/2017 SUBJECTIVE: The patient is a 62-year-old, seen and examined, lying in bed. Seems to be comfortable. She states she feels better since she got blood transfusion. Complains of back pain. Eating and tolerating. PHYSICAL EXAMINATION: VITAL SIGNS: She is afebrile, pulse 74, respirations 20, blood pressure 94/58. LUNGS: Bilateral fair airflow. No rhonchi or crackle. HEART: S1 and S2 audible. ABDOMEN: Soft. Nontender. No rebound. No guarding. NEUROLOGIC: The patient is awake, alert, and communicative. EXTREMITIES: Bilateral legs, no edema. Right big toe is in dressing after I and D for ingrown toenail. LABORATORY DATA: WBC 4, hemoglobin 11, hematocrit 32.7, platelets of 125. Chemistry: Sodium 137, potassium 4.5, chloride 105, CO2 of 25, BUN 30, creatinine 0.5, blood sugar of 90. AST 89, ALT 103. ASSESSMENT: 1. Malnutrition, etiology still unclear. Currently on partial parenteral nutrition. 2. Stage IV sacral decubiti. 3. History of depression. 4. Multiple sclerosis. 5. History of sarcoidosis. 6. Left upper arm deep venous thrombosis. PLAN: We will continue the patient on PPN. We will continue local wound care. Intermittently check H and H and electrolytes. director of special services to make arrangement for subacute rehab where she can receive PPN. Rad Onofre MD
--- NOTE | 2017-11-07 08:47 | PN ---
DATE: 11/06/2017 SUBJECTIVE: The patient is feeling slightly better and tolerating the diet. She is still receiving the PPN. She says her appetite is better. She did have a bowel movements earlier. No bleeding. PHYSICAL EXAMINATION: VITAL SIGNS: On examination, she is afebrile. Blood pressure is 82/55, respirations 20, O2 saturation 98%, temperature 98.1. HEENT: Atraumatic, anicteric. Temporal wasting bilaterally noticed. NECK Supple. HEART: S1, S2 heard. Tachycardic. ABDOMEN: Soft. There is no mass palpable. No tenderness. Surgical scar noticed. Softly distended. EXTREMITIES: No cyanosis. No clubbing or edema. LABORATORY DATA: Hemoglobin 11.1, hematocrit 32.7, WBC 4.9, platelets 126. Chemistry, no labs today. The labs done on 01/30/2012 was essentially unremarkable except albumin 2.6. IMPRESSION AND PLAN: This is a 62-year-old patient with a status post bariatric surgery, appears to be modified diet so far, history of significant weight loss. Patient has significant weight loss, had ascites, possibly chronic liver disease, iron overload, caballero multiple large-volume paracentesis done. Other comorbidities include multiple sclerosis, , urinary tract infection, stone. I did have a detail discussion with the patient's son on Tuesday. The plan is to consider outpatient PET scan. Presently, continue the PPN if possible. Discussed with the patient regarding the coloscopy. Patient is too weak and also is reluctant to have it now. We will continue to closely follow up with her care and suggest further management based on the clinical course. Ami Alvarado MD
[2017-11-07] MEDS: POLYETHYLENE GLYCOL 3350 17 GM/Dose PACKET PO PRN (09:17)
[2017-11-07] MEDS: PrednisoLONE 1% Opht Susp(5 ml) OS SCH ×2 (09:21→21:35)
[2017-11-07] MEDS: Enoxaparin 30 mg Syringe SC SCH ×2 (09:22→21:34)
--- NOTE | 2017-11-07 09:29 | PN ---
DATE: 11/06/2017 The patient is seen, I am covering for Dr. Warren. Vital signs are normal. Blood pressure is somewhat low. She is very cachectic. The decubitus is being followed peripherally. I will follow peripherally. Please recall if necessary. Gordon Galloway MD
[2017-11-07] MEDS: Albumin Human 25% (12.5 gm/50 ml) IV SCH (10:20)
[2017-11-07] MEDS: ADDERALL 10 MG PO SCH (10:21)
[2017-11-07] MEDS: Collagenase 250 Units/gm Ointment(30 gm) TOP SCH ×2 (10:30→10:32)
--- NOTE | 2017-11-07 11:40 | CP.PCM.PN ---
Subjective - Date & Time of Evaluation Date of Evaluation: 11/07/17 Time of Evaluation: 10:20 - Subjective Subjective: Patient is comfortable in bed, improved pain in the right foot, no nausea, no abdominal pain. Patient will have PICC placed for parenteral nutrition. No fevers. No suprapubic pain. Objective - Vital Signs/Intake and Output Vital Signs (last 24 hours): Temp Pulse Resp BP Pulse Ox 97.6 F 76 18 72/46 L 97 11/07/17 06:00 11/07/17 06:00 11/07/17 06:00 11/07/17 06:00 11/07/17 06:00 Intake and Output: 11/07/17 11/07/17 06:59 18:59 Intake Total 1738 Output Total 1025 Balance 713 - Medications Medications: Current Medications Albumin Human (Albumin Human 25% (12.5 Gm/50 Ml)) 12.5 gm IV DAILY [facility] Last Admin: 11/06/17 10:57 Dose: 12.5 gm Amylase (Pancrease 64863 U-5000 U-52019 U) 5,000 unit PO ACTID [facility] Last Admin: 11/07/17 08:23 Dose: 5,000 unit Buspirone HCl (Buspar) 5 mg PO BID [facility] PRN Reason: Protocol Last Admin: 11/06/17 18:16 Dose: 5 mg Citalopram Hydrobromide (Celexa) 20 mg PO DAILY [facility] Last Admin: 11/06/17 10:55 Dose: 20 mg Collagenase (Santyl) 0 gm TOP DAILY [facility] Last Admin: 11/06/17 10:58 Dose: 1 applic Enoxaparin Sodium (Lovenox) 30 mg SC Q12H [facility] PRN Reason: Protocol Last Admin: 11/06/17 22:09 Dose: 30 mg Fentanyl (Duragesic) 1 patch TD Q72H [facility] Last Admin: 11/06/17 22:09 Dose: 1 patch Furosemide (Lasix) 20 mg IVP DAILY [facility] Last Admin: 11/06/17 10:56 Dose: 20 mg Gabapentin (Neurontin) 300 mg PO TID [facility] PRN Reason: Protocol Last Admin: 11/06/17 14:19 Dose: 300 mg Amino Acids (Clinimix 4.25/5 % (1000 Ml)) 1,000 mls @ 42 mls/hr IV .[id number] [facility] Last Admin: 11/06/17 20:22 Dose: 42 mls/hr Loratadine (Claritin) 10 mg PO DAILY PRN PRN Reason: Allergy symptoms Mupirocin (Bactroban Ointment) 0 gm TOP BID [facility] Last Admin: 11/06/17 10:58 Dose: 1 applic Adderall Xr 10 Mg ((Home Med)) 10 mg PO DAILY [facility] Last Admin: 11/06/17 10:58 Dose: Not Given Ondansetron HCl (Zofran Inj) 4 mg IVP Q6H PRN PRN Reason: Nausea/Vomiting Last Admin: 11/03/17 10:19 Dose: 4 mg Oxycodone/Acetaminophen (Percocet 10/325 Mg Tab) 1 tab PO Q4H PRN PRN Reason: Pain, moderate (4-7) Last Admin: 11/07/17 01:34 Dose: 1 tab Pantoprazole Sodium (Protonix Ec Tab) 40 mg PO 0600 [facility] Last Admin: 11/07/17 06:45 Dose: 40 mg Polyethylene Glycol (Miralax) 17 gm PO DAILY PRN PRN Reason: Constipation Last Admin: 11/02/17 22:51 Dose: 17 gm Prednisolone Acetate (Pred Forte 1% Opht Susp) 1 ml OD Q8 [facility] Last Admin: 11/07/17 06:44 Dose: 1 drop Prednisolone Acetate (Pred Forte 1% Opht Susp) 1 ml OS Q12 [facility] Last Admin: 11/06/17 22:10 Dose: 1 drop Spironolactone (Aldactone) 50 mg PO DAILY [facility] Last Admin: 11/06/17 10:55 Dose: 50 mg - Labs Labs: 11/07/17 07:30 11/07/17 07:30 PT 12.1 SECONDS (9.4-12.5) 10/28/17 23:50 INR 1.06 (0.93-1.08) 10/28/17 23:50 APTT 35.0 Seconds (25.1-36.5) 10/28/17 23:50 - Constitutional Appears: Non-toxic, Cachectic, Chronically Ill - Head Exam Head Exam: NORMAL INSPECTION - ENT Exam ENT Exam: Mucous Membranes Moist - Neck Exam Neck Exam: absent: Meningismus - Respiratory Exam Respiratory Exam: Decreased Breath Sounds - Cardiovascular Exam Cardiovascular Exam: +S1, +S2 - GI/Abdominal Exam GI & Abdominal Exam: Soft. absent: Tenderness - Extremities Exam Additional comments: right hallux with dressing in place Assessment and Plan - Assessment and Plan (Free Text) Plan: Assessment Asymptomatic candiduria in a patient with Smith catheter chronic sacral decubitus ulcer without evidence of acute infection but colonized with MRSA right hallux local skin and skin structure infection, local, clinically improving history of E. coli UTI history of bilateral lower extremity cellulitis history of bilateral lower extremity skin and skin structure infection with MRSA and Klebsiella chronic anemia HTN multiple sclerosis sarcoidosis history of pancreatitis S/P left ureteral stent Plan continue Bactroban to sacral ulcer and right hallux; continue local wound care on the sacral ulcer reviewed Podiatry evaluation and recommendations for the right hallux - continue local wound care follow up repeat urine cx to be done today - previous urine cx showed decreased load of yeast in the urine despite no specific antifungal treatment will continue to follow clinically overall prognosis is poor
[2017-11-07 16:41] LABS: URINE BILIRUBIN NEGATIVE (NEGATIVE); URINE BLOOD TRACE-INTACT (NEGATIVE); URINE GLUCOSE (UA) NEGATIVE (NEGATIVE); URINE LEUKOCYTE ESTERASE MODERATE Leu/uL (NEGATIVE); URINE PROTEIN NEGATIVE mg/dL (<30 mg/dL); URINE UROBILINOGEN 0.2 E.U./dL (<1 E.U./dL)
[2017-11-07 16:43] LABS: URINE APPEARANCE CLEAR (CLEAR); URINE COLOR YELLOW (YELLOW)
[2017-11-07 16:51] LABS: URINE AMORPHOUS SEDIMENT FEW; URINE BACTERIA MANY (NEG); URINE WBC 20 - 25 /hpf (0-6)
[2017-11-07] MEDS: Amino/Dext 4.25/5 1,000 ML IV SCH (18:29)
--- NOTE | 2017-11-07 20:25 | PN ---
DATE: 11/07/2017 SUBJECTIVE: The patient is a 62-year-old, seen and examined, lying in bed, seems to be comfortable. Denies any nausea or vomiting. Eating and tolerating. Currently on PPN. PHYSICAL EXAMINATION VITAL SIGNS: She is afebrile. Pulse 66, respirations 18, blood pressure 108/64. LUNGS: Bilateral fair airflow. No rhonchi or crackles. HEART: S1 and S2 audible. ABDOMEN: Soft. No ascites noted. EXTREMITIES: Bilateral legs, no edema. LABORATORY DATA: WBC is 12.6, hemoglobin 10.4, hematocrit 30.8, platelet of 148. Sodium 138, potassium 4.6, chloride 105, CO2 of 25, BUN 34, creatinine 0.5, blood sugar of 92. AST 114, ALT 125, alkaline phosphatase is 76. Blood cultures are negative. ASSESSMENT: 1. Cirrhotic ascites, status post paracentesis, 3 L fluid was removed. 2. Weight loss, etiology unclear yet. 3. Abnormal liver function tests, probably secondary to iron overload because of previous multiple transfusions and iron infusions. 4. Multiple sclerosis. 5. History of sarcoidosis. 6. History of nephrolithiasis. PLAN: Currently the patient is on PPN. [employer] are in the process to reach out the insurance company and subacute rehabs where patient can have PPN. Once arrangement is made for subacute rehab who is able to give patient PPN, the patient will be discharged to that facility, and PET scan will be arranged as outpatient. Rad Onofre MD
[2017-11-08] MEDS: Oxycodone/Acetaminophen 10/325 mg Tab PO PRN ×4 (00:08→19:04)
[2017-11-08] MEDS: Pantoprazole 40 mg EC Tab PO SCH (05:38)
[2017-11-08] MEDS: PrednisoLONE 1% Opht Susp(5 ml) OD SCH ×3 (05:39→21:36)
[2017-11-08] MEDS: Amylase/Lipase/Protease 5,000 Units ECC PO SCH ×3 (08:00→16:44)
[2017-11-08] MEDS: Collagenase 250 Units/gm Ointment(30 gm) TOP SCH (10:04)
[2017-11-08] MEDS: PrednisoLONE 1% Opht Susp(5 ml) OS SCH ×2 (10:09→21:37)
[2017-11-08] MEDS: ADDERALL 10 MG PO SCH (10:11)
--- NOTE | 2017-11-08 10:26 | CP.PCM.PN ---
Subjective - Date & Time of Evaluation Date of Evaluation: 11/08/17 Time of Evaluation: 10:20 - Subjective Subjective: S&E at bedside, chart reviewed. Report to have a good appetite, No N/V or abdominal pain. Had good BM yesterday , small one today, no overt GI bleeding. PICC inserted yesterday, PPN changed to TPN. Objective - Vital Signs/Intake and Output Vital Signs (last 24 hours): Temp Pulse Resp BP Pulse Ox 97.9 F 71 20 90/60 L 97 11/08/17 06:00 11/08/17 06:00 11/08/17 06:00 11/08/17 10:01 11/08/17 06:00 Intake and Output: 11/08/17 11/08/17 06:59 18:59 Intake Total 840 240 Output Total 1400 400 Balance -560 -160 - Medications Medications: Current Medications Albumin Human (Albumin Human 25% (12.5 Gm/50 Ml)) 12.5 gm IV DAILY [facility] Last Admin: 11/07/17 10:20 Dose: 12.5 gm Amylase (Pancrease 30031 U-5000 U-28094 U) 5,000 unit PO ACTID [facility] Last Admin: 11/08/17 08:00 Dose: 5,000 unit Buspirone HCl (Buspar) 5 mg PO BID [facility] PRN Reason: Protocol Last Admin: 11/08/17 09:57 Dose: 5 mg Citalopram Hydrobromide (Celexa) 20 mg PO DAILY [facility] Last Admin: 11/08/17 10:01 Dose: 20 mg Collagenase (Santyl) 0 gm TOP DAILY [facility] Last Admin: 11/08/17 10:04 Dose: 1 applic Enoxaparin Sodium (Lovenox) 30 mg SC Q12H [facility] PRN Reason: Protocol Last Admin: 11/07/17 21:34 Dose: 30 mg Fentanyl (Duragesic) 1 patch TD Q72H [facility] Last Admin: 11/06/17 22:09 Dose: 1 patch Furosemide (Lasix) 20 mg IVP DAILY [facility] Last Admin: 11/08/17 10:01 Dose: 20 mg Gabapentin (Neurontin) 300 mg PO TID [facility] PRN Reason: Protocol Last Admin: 11/08/17 09:57 Dose: 300 mg Amino Acids (Clinimix 4.25/5 % (1000 Ml)) 1,000 mls @ 42 mls/hr IV .[id number] [facility] Last Admin: 11/07/17 18:29 Dose: 42 mls/hr Loratadine (Claritin) 10 mg PO DAILY PRN PRN Reason: Allergy symptoms Last Admin: 11/07/17 21:36 Dose: 10 mg Mupirocin (Bactroban Ointment) 0 gm TOP BID [facility] Last Admin: 11/08/17 09:57 Dose: 1 applic Adderall Xr 10 Mg ((Home Med)) 10 mg PO DAILY [facility] Last Admin: 11/08/17 10:11 Dose: Not Given Ondansetron HCl (Zofran Inj) 4 mg IVP Q6H PRN PRN Reason: Nausea/Vomiting Last Admin: 11/08/17 10:01 Dose: 4 mg Oxycodone/Acetaminophen (Percocet 10/325 Mg Tab) 1 tab PO Q4H PRN PRN Reason: Pain, moderate (4-7) Last Admin: 11/08/17 10:17 Dose: 1 tab Pantoprazole Sodium (Protonix Ec Tab) 40 mg PO 0600 [facility] Last Admin: 11/08/17 05:38 Dose: 40 mg Polyethylene Glycol (Miralax) 17 gm PO DAILY PRN PRN Reason: Constipation Last Admin: 11/07/17 09:17 Dose: 17 gm Prednisolone Acetate (Pred Forte 1% Opht Susp) 1 ml OD Q8 [facility] Last Admin: 11/08/17 05:39 Dose: 1 drop Prednisolone Acetate (Pred Forte 1% Opht Susp) 1 ml OS Q12 [facility] Last Admin: 11/08/17 10:09 Dose: 1 drop Spironolactone (Aldactone) 50 mg PO DAILY [facility] Last Admin: 11/08/17 09:57 Dose: 50 mg - Labs Labs: 11/07/17 07:30 11/07/17 07:30 PT 12.1 SECONDS (9.4-12.5) 10/28/17 23:50 INR 1.06 (0.93-1.08) 10/28/17 23:50 APTT 35.0 Seconds (25.1-36.5) 10/28/17 23:50 - Constitutional Appears: No Acute Distress, Cachectic - Eye Exam Eye Exam: Normal appearance. absent: Scleral icterus - ENT Exam ENT Exam: Mucous Membranes Moist - Respiratory Exam Respiratory Exam: NORMAL BREATHING PATTERN. absent: Respiratory Distress - Cardiovascular Exam Cardiovascular Exam: +S1, +S2 - GI/Abdominal Exam GI & Abdominal Exam: Soft, Normal Bowel Sounds. absent: Guarding, Tenderness, Rebound - Extremities Exam Extremities Exam: absent: Calf Tenderness, Pedal Edema - Neurological Exam Neurological Exam: Alert, Awake, Oriented x3 - Skin Skin Exam: Dry, Warm Assessment and Plan - Assessment and Plan (Free Text) Assessment: ASSESSMENT: Anemia, s/p blood transfusion Resolved Diarrhea, differential Malabsorption, previous MRCP no pancreatic mass noted Recurrent Ascites, s/p paracentesis, 3L removed Abnormal LFT, now improved Weight Loss/Malnutrition Recent Exp lap, no mass seen 09/2017 PLAN: on Regular diet celiac disease panel negative PPN changed to TPN, labs ordered : cmp, phos,mg,prealbumin,TG, see orders on Miralax prn , if no BM 2days monitor LFT closely while on TPN on Albumin on Pancreatic enzymes 5000U before meals DVT prophylaxsis GI propylaxsis Recommend outpatient PET Seen and discussed w/ Dr. Alvarado.
--- NOTE | 2017-11-08 12:04 | CP.PCM.PN ---
Subjective - Date & Time of Evaluation Date of Evaluation: 11/08/17 Time of Evaluation: 10:00 - Subjective Subjective: Comfortable in bed, no fevers, not in distress. Objective - Vital Signs/Intake and Output Vital Signs (last 24 hours): Temp Pulse Resp BP Pulse Ox 98 F 82 18 136/53 L 97 11/07/17 22:42 11/07/17 22:42 11/07/17 22:42 11/07/17 22:42 11/07/17 22:42 Intake and Output: 11/07/17 11/08/17 18:59 06:59 Intake Total 840 840 Output Total 600 1400 Balance 240 -560 - Medications Medications: Current Medications Albumin Human (Albumin Human 25% (12.5 Gm/50 Ml)) 12.5 gm IV DAILY [facility] Last Admin: 11/07/17 10:20 Dose: 12.5 gm Amylase (Pancrease 60951 U-5000 U-30739 U) 5,000 unit PO ACTID [facility] Last Admin: 11/07/17 16:50 Dose: 5,000 unit Buspirone HCl (Buspar) 5 mg PO BID [facility] PRN Reason: Protocol Last Admin: 11/07/17 18:31 Dose: 5 mg Citalopram Hydrobromide (Celexa) 20 mg PO DAILY [facility] Last Admin: 11/07/17 09:19 Dose: 20 mg Collagenase (Santyl) 0 gm TOP DAILY [facility] Last Admin: 11/07/17 10:32 Dose: 1 applic Enoxaparin Sodium (Lovenox) 30 mg SC Q12H [facility] PRN Reason: Protocol Last Admin: 11/07/17 21:34 Dose: 30 mg Fentanyl (Duragesic) 1 patch TD Q72H [facility] Last Admin: 11/06/17 22:09 Dose: 1 patch Furosemide (Lasix) 20 mg IVP DAILY [facility] Last Admin: 11/07/17 09:18 Dose: 20 mg Gabapentin (Neurontin) 300 mg PO TID [facility] PRN Reason: Protocol Last Admin: 11/07/17 18:31 Dose: 300 mg Amino Acids (Clinimix 4.25/5 % (1000 Ml)) 1,000 mls @ 42 mls/hr IV .[id number] [facility] Last Admin: 11/07/17 18:29 Dose: 42 mls/hr Loratadine (Claritin) 10 mg PO DAILY PRN PRN Reason: Allergy symptoms Last Admin: 11/07/17 21:36 Dose: 10 mg Mupirocin (Bactroban Ointment) 0 gm TOP BID [facility] Last Admin: 11/07/17 18:33 Dose: 1 applic Adderall Xr 10 Mg ((Home Med)) 10 mg PO DAILY [facility] Last Admin: 11/07/17 10:21 Dose: Not Given Ondansetron HCl (Zofran Inj) 4 mg IVP Q6H PRN PRN Reason: Nausea/Vomiting Last Admin: 11/07/17 10:20 Dose: 4 mg Oxycodone/Acetaminophen (Percocet 10/325 Mg Tab) 1 tab PO Q4H PRN PRN Reason: Pain, moderate (4-7) Last Admin: 11/08/17 05:42 Dose: 1 tab Pantoprazole Sodium (Protonix Ec Tab) 40 mg PO 0600 [facility] Last Admin: 11/08/17 05:38 Dose: 40 mg Polyethylene Glycol (Miralax) 17 gm PO DAILY PRN PRN Reason: Constipation Last Admin: 11/07/17 09:17 Dose: 17 gm Prednisolone Acetate (Pred Forte 1% Opht Susp) 1 ml OD Q8 [facility] Last Admin: 11/08/17 05:39 Dose: 1 drop Prednisolone Acetate (Pred Forte 1% Opht Susp) 1 ml OS Q12 [facility] Last Admin: 11/07/17 21:35 Dose: 1 drop Spironolactone (Aldactone) 50 mg PO DAILY [facility] Last Admin: 11/07/17 09:19 Dose: 50 mg - Labs Labs: 11/07/17 07:30 11/07/17 07:30 PT 12.1 SECONDS (9.4-12.5) 10/28/17 23:50 INR 1.06 (0.93-1.08) 10/28/17 23:50 APTT 35.0 Seconds (25.1-36.5) 10/28/17 23:50 - Constitutional Appears: Cachectic, Chronically Ill - Head Exam Head Exam: NORMAL INSPECTION - ENT Exam ENT Exam: Mucous Membranes Moist - Neck Exam Neck Exam: absent: Lymphadenopathy, Meningismus - Respiratory Exam Respiratory Exam: Decreased Breath Sounds - Cardiovascular Exam Cardiovascular Exam: +S1, +S2 - GI/Abdominal Exam GI & Abdominal Exam: Soft. absent: Tenderness - Extremities Exam Additional comments: right foot with dressings in place Assessment and Plan - Assessment and Plan (Free Text) Plan: Assessment Asymptomatic candiduria in a patient with Smith catheter chronic sacral decubitus ulcer without evidence of acute infection but colonized with MRSA right hallux local skin and skin structure infection, local, clinically improving history of E. coli UTI history of bilateral lower extremity cellulitis history of bilateral lower extremity skin and skin structure infection with MRSA and Klebsiella chronic anemia HTN multiple sclerosis sarcoidosis history of pancreatitis S/P left ureteral stent Plan continue Bactroban to sacral ulcer and right hallux; continue local wound care on the sacral ulcer reviewed Podiatry evaluation and recommendations for the right hallux - continue local wound care follow up repeat urine cx - previous urine cx showed decreased load of yeast in the urine despite no specific antifungal treatment will continue to follow clinically patient is to be on parenteral nutrition which may put her at risk for fungal infections overall prognosis is poor
[2017-11-08] MEDS: Enoxaparin 30 mg Syringe SC SCH ×2 (13:41→21:35)
[2017-11-08] MEDS: Albumin Human 25% (12.5 gm/50 ml) IV SCH (14:44)
[2017-11-08] MEDS: Amino/Dext 5/20 1,000 ML IV SCH (18:25)
[2017-11-09] MEDS: Oxycodone/Acetaminophen 10/325 mg Tab PO PRN ×5 (01:03→23:46)
[2017-11-09] MEDS: PrednisoLONE 1% Opht Susp(5 ml) OD SCH ×3 (05:07→21:52)
[2017-11-09] MEDS: Pantoprazole 40 mg EC Tab PO SCH (05:07)
[2017-11-09 05:27] LABS: BASO # 0.02 K/mm3 (0.0-2.0); BASO % 0.4 % (0.0-3.0); EOS # 0.1 (0.0-0.7); EOS % 1.3 % (1.5-5.0); GRAN # 2.28 (1.4-6.5); GRAN % 48.6 % (50.0-68.0); HEMOGLOBIN 9.2 g/dL (12.0-16.0); LYMPH # 1.8 (1.2-3.4); LYMPH % 39.1 % (22.0-35.0); MEAN CELL VOLUME 94.9 fl (80.0-105.0); MEAN CORPUSCULAR HEMOGLOBIN 31.2 pg (25.0-35.0); MEAN CORPUSCULAR HGB CONC 32.9 g/dl (31.0-37.0); MEAN PLATELET VOLUME 8.6 fl (7.0-11.0); MONO # 0.5 (0.1-0.6); MONO % 10.6 % (1.0-6.0); RBC 2.95 10^6/uL (3.5-6.1); RED CELL DISTRIBUTION WIDTH 19.2 % (11.5-14.5); WHITE BLOOD COUNT 4.7 10^3/ul (4.5-11.0)
[2017-11-09 05:54] LABS: ALB/GLOB RATIO 1.3 (1.1-1.8); ALBUMIN 2.9 g/dL (3.0-4.8); ALT/SGPT 92 U/L (7-56); AST/SGOT 64 U/L (14-36); BLOOD UREA NITROGEN 38 mg/dL (7-21); CALCIUM 8.2 mg/dL (8.4-10.5); GFR AFRICAN-AMERICAN > 60; GFR NON-AFRICAN AMERICAN > 60
[2017-11-09] MEDS: Amylase/Lipase/Protease 5,000 Units ECC PO SCH ×3 (08:05→17:45)
--- NOTE | 2017-11-09 09:26 | DS ---
HISTORY OF PRESENT ILLNESS: Patient is a 62-year-old who was admitted with generalized weakness, increasing ascites and bilateral leg edema. Patient was admitted, was given IV albumin, Lasix because she has been hypotensive and we were able to diurese with high dose albumin. She had paracentesis done and had 3 liters fluid removed. Etiology of the cirrhosis of the liver is still not very clear, probably secondary to hemochromatosis and could be iron overload. Patient was evaluated by interventional technologist, has been on PPN and the plan is to continue her PPN until she gets her PET scan done as an outpatient and arrangement is being made to transfer to subacute rehab where she will receive PPN. PHYSICAL EXAMINATION: GENERAL: Today, she is awake, alert, oriented, communicative. VITAL SIGNS: She is afebrile. Pulse 71, respirations 20, blood pressure 90/60. LUNGS: Bilateral fair airflow. No rhonchi or crackles. HEART: S1 and S2 audible. ABDOMEN: Soft, nontender. No rebound. No guarding. NEUROLOGIC: Patient is awake, alert, oriented, communicative. EXTREMITIES: Bilateral legs, no edema. Right big toe is in dressing because of ingrown toenail. LABORATORY DATA: Chemistry, blood sugar is 113. ASSESSMENT: 1. 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 2. History of bariatric gastric surgery. 3. Significant weight loss, etiology still unclear. Her CA 125 and 19-9 have been borderline high. Patient is awaiting PET scan that has to be done as outpatient. Patient has not been enough out of hospital to have PET scan improved. 4. Malnutrition. 5. Hypoalbuminemia. 6. History of sarcoidosis. 7. History of multiple sclerosis. 8. Chronic constipation secondary to narcotics. PLAN: Patient is being transferred to subacute rehab as soon as arrangement is made. We will continue on PPN. Patient will be transferred to subacute rehab today. Rad Onofre MD
[2017-11-09] MEDS: Enoxaparin 30 mg Syringe SC SCH ×2 (10:49→21:52)
[2017-11-09] MEDS: ADDERALL 10 MG PO SCH (10:50)
[2017-11-09] MEDS: Collagenase 250 Units/gm Ointment(30 gm) TOP SCH (10:52)
[2017-11-09] MEDS: PrednisoLONE 1% Opht Susp(5 ml) OS SCH ×2 (10:52→21:53)
[2017-11-09] MEDS: Albumin Human 25% (12.5 gm/50 ml) IV SCH (11:03)
--- NOTE | 2017-11-09 13:14 | CP.PCM.PN ---
<Marley Fam - Last Filed: 11/09/17 13:13> Subjective - Date & Time of Evaluation Date of Evaluation: 11/09/17 Time of Evaluation: 11:10 - Subjective Subjective: Seen and examined at the bedside earlier today, chart review. Patient remains on TPN via PICC line. Continues to tolerate oral intake. Occasional abdominal cramps, patient contribution assist to being unable to pass gas. Patient states when she is turning from side to side and moves around able to pass gas with relief. No complaints of nausea, vomiting, shortness of breath or chest pain. Reports regular bowel movements no reports of overt GI bleed. Objective - Vital Signs/Intake and Output Vital Signs (last 24 hours): Temp Pulse Resp BP Pulse Ox 97.6 F 71 18 89/61 L 98 11/09/17 06:00 11/09/17 06:00 11/09/17 06:00 11/09/17 11:06 11/09/17 06:00 Intake and Output: 11/09/17 11/09/17 06:59 18:59 Intake Total 600 Output Total 1000 Balance -400 - Medications Medications: Current Medications Albumin Human (Albumin Human 25% (12.5 Gm/50 Ml)) 12.5 gm IV DAILY [facility] Last Admin: 11/09/17 11:03 Dose: 12.5 gm Amylase (Pancrease 23226 U-5000 U-65734 U) 5,000 unit PO ACTID [facility] Last Admin: 11/09/17 13:02 Dose: 5,000 unit Buspirone HCl (Buspar) 5 mg PO BID [facility] PRN Reason: Protocol Last Admin: 11/09/17 10:49 Dose: 5 mg Citalopram Hydrobromide (Celexa) 20 mg PO DAILY [facility] Last Admin: 11/09/17 10:49 Dose: 20 mg Collagenase (Santyl) 0 gm TOP DAILY [facility] Last Admin: 11/09/17 10:52 Dose: 1 applic Enoxaparin Sodium (Lovenox) 30 mg SC Q12H [facility] PRN Reason: Protocol Last Admin: 11/09/17 10:49 Dose: 30 mg Fentanyl (Duragesic) 1 patch TD Q72H [facility] Last Admin: 11/06/17 22:09 Dose: 1 patch Furosemide (Lasix) 20 mg IVP DAILY [facility] Last Admin: 11/09/17 11:06 Dose: 20 mg Gabapentin (Neurontin) 300 mg PO TID [facility] PRN Reason: Protocol Last Admin: 11/09/17 10:50 Dose: 300 mg Amino Acids (Clinimix 5/20 % (1000 Ml)) 1,000 mls @ 41.667 mls/hr IV .Q24H [facility] Last Admin: 11/08/17 18:25 Dose: 41.667 mls/hr Loratadine (Claritin) 10 mg PO DAILY PRN PRN Reason: Allergy symptoms Last Admin: 11/09/17 10:50 Dose: 10 mg Mupirocin (Bactroban Ointment) 0 gm TOP BID [facility] Last Admin: 11/09/17 10:51 Dose: 1 applic Adderall Xr 10 Mg ((Home Med)) 10 mg PO DAILY [facility] Last Admin: 11/09/17 10:50 Dose: Not Given Ondansetron HCl (Zofran Inj) 4 mg IVP Q6H PRN PRN Reason: Nausea/Vomiting Last Admin: 11/09/17 11:15 Dose: 4 mg Oxycodone/Acetaminophen (Percocet 10/325 Mg Tab) 1 tab PO Q4H PRN PRN Reason: Pain, moderate (4-7) Last Admin: 11/09/17 12:54 Dose: 1 tab Pantoprazole Sodium (Protonix Ec Tab) 40 mg PO 0600 [facility] Last Admin: 11/09/17 05:07 Dose: 40 mg Polyethylene Glycol (Miralax) 17 gm PO DAILY PRN PRN Reason: Constipation Last Admin: 11/07/17 09:17 Dose: 17 gm Prednisolone Acetate (Pred Forte 1% Opht Susp) 1 ml OD Q8 [facility] Last Admin: 11/09/17 05:07 Dose: 1 drop Prednisolone Acetate (Pred Forte 1% Opht Susp) 1 ml OS Q12 [facility] Last Admin: 11/09/17 10:52 Dose: 1 drop Spironolactone (Aldactone) 50 mg PO DAILY [facility] Last Admin: 11/09/17 10:49 Dose: 50 mg - Labs Labs: 11/09/17 05:15 11/09/17 05:15 PT 12.1 SECONDS (9.4-12.5) 10/28/17 23:50 INR 1.06 (0.93-1.08) 10/28/17 23:50 APTT 35.0 Seconds (25.1-36.5) 10/28/17 23:50 - Constitutional Appears: No Acute Distress - Eye Exam Eye Exam: Normal appearance. absent: Scleral icterus - ENT Exam ENT Exam: Mucous Membranes Moist - Respiratory Exam Respiratory Exam: NORMAL BREATHING PATTERN. absent: Respiratory Distress - Cardiovascular Exam Cardiovascular Exam: +S1, +S2 - GI/Abdominal Exam GI & Abdominal Exam: Distended, Soft, Normal Bowel Sounds. absent: Guarding, Tenderness, Rebound - Extremities Exam Extremities Exam: absent: Calf Tenderness, Pedal Edema - Neurological Exam Neurological Exam: Alert, Awake, Oriented x3 - Skin Skin Exam: Dry, Warm Assessment and Plan - Assessment and Plan (Free Text) Assessment: ASSESSMENT: Anemia, s/p blood transfusion Resolved Diarrhea, differential Malabsorption, previous MRCP no pancreatic mass noted Recurrent Ascites, s/p paracentesis, 3L removed Abnormal LFT, now improved Weight Loss/Malnutrition Recent Exp lap, no mass seen 09/2017 PLAN: on Regular diet celiac disease panel negative continue TPN, labs reviewed, give dose of Magnesium OXide 400 mg once today, see order on Miralax prn , if no BM 2days monitor LFT closely while on TPN on Albumin on Pancreatic enzymes 5000U before meals DVT prophylaxsis GI propylaxsis Recommend outpatient PET Seen and discussed w/ Dr. Alvarado. <Ami Alvarado V - Last Filed: 11/10/17 00:12> Objective - Vital Signs/Intake and Output Vital Signs (last 24 hours): Temp Pulse Resp BP Pulse Ox 97.9 F 93 H 20 96/70 L 98 11/09/17 14:00 11/09/17 14:00 11/09/17 14:00 11/09/17 14:00 11/09/17 14:00 Intake and Output: 11/09/17 11/10/17 18:59 06:59 Intake Total 420 Output Total 300 Balance 120 - Medications Medications: Current Medications Amylase (Pancrease 85741 U-5000 U-11128 U) 5,000 unit PO ACTID [facility] Last Admin: 11/09/17 17:45 Dose: 5,000 unit Buspirone HCl (Buspar) 5 mg PO BID [facility] PRN Reason: Protocol Last Admin: 11/09/17 17:45 Dose: 5 mg Citalopram Hydrobromide (Celexa) 20 mg PO DAILY [facility] Last Admin: 11/09/17 10:49 Dose: 20 mg Collagenase (Santyl) 0 gm TOP DAILY [facility] Last Admin: 11/09/17 10:52 Dose: 1 applic Enoxaparin Sodium (Lovenox) 30 mg SC Q12H [facility] PRN Reason: Protocol Last Admin: 11/09/17 21:52 Dose: 30 mg Fentanyl (Duragesic) 1 patch TD Q72H [facility] Last Admin: 11/09/17 21:52 Dose: 1 patch Furosemide (Lasix) 20 mg IVP DAILY [facility] Last Admin: 11/09/17 11:06 Dose: 20 mg Gabapentin (Neurontin) 300 mg PO TID [facility] PRN Reason: Protocol Last Admin: 11/09/17 17:45 Dose: 300 mg Amino Acids (Clinimix 5/20 % (1000 Ml)) 1,000 mls @ 41.667 mls/hr IV .Q24H [facility] Last Admin: 11/09/17 17:45 Dose: 41.667 mls/hr Loratadine (Claritin) 10 mg PO DAILY PRN PRN Reason: Allergy symptoms Last Admin: 11/09/17 10:50 Dose: 10 mg Mupirocin (Bactroban Ointment) 0 gm TOP BID [facility] Last Admin: 11/09/17 17:49 Dose: 1 applic Adderall Xr 10 Mg ((Home Med)) 10 mg PO DAILY [facility] Last Admin: 11/09/17 10:50 Dose: Not Given Ondansetron HCl (Zofran Inj) 4 mg IVP Q6H PRN PRN Reason: Nausea/Vomiting Last Admin: 11/09/17 11:15 Dose: 4 mg Oxycodone/Acetaminophen (Percocet 10/325 Mg Tab) 1 tab PO Q4H PRN PRN Reason: Pain, moderate (4-7) Last Admin: 11/09/17 23:46 Dose: 1 tab Pantoprazole Sodium (Protonix Ec Tab) 40 mg PO 0600 [facility] Last Admin: 11/09/17 05:07 Dose: 40 mg Polyethylene Glycol (Miralax) 17 gm PO DAILY PRN PRN Reason: Constipation Last Admin: 11/07/17 09:17 Dose: 17 gm Prednisolone Acetate (Pred Forte 1% Opht Susp) 1 ml OD Q8 [facility] Last Admin: 11/09/17 21:52 Dose: 1 drop Prednisolone Acetate (Pred Forte 1% Opht Susp) 1 ml OS Q12 [facility] Last Admin: 11/09/17 21:53 Dose: 1 drop Spironolactone (Aldactone) 50 mg PO DAILY [facility] Last Admin: 11/09/17 10:49 Dose: 50 mg - Labs Labs: 11/09/17 05:15 11/09/17 05:15 PT 12.1 SECONDS (9.4-12.5) 10/28/17 23:50 INR 1.06 (0.93-1.08) 10/28/17 23:50 APTT 35.0 Seconds (25.1-36.5) 10/28/17 23:50 Attending/Attestation - Attestation I have personally seen and examined this patient.: Yes I have fully participated in the care of the patient.: Yes I have reviewed all pertinent clinical information, including history, physical exam and plan: Yes Notes (Text): This is an addendum to GI progress report dictated by the Hot P[employer] Gauger.The patient was seen and examined earlier. Medical records, lab studies, imagings were reviewed. Last 24 hours events reviewed. Agreed with the above treatment plan as outlined in [employer]er 's notes the with the addition of the following 11/10/17 00:11
[2017-11-09] MEDS ORDERED: Magnesium Oxide 400 mg Tab UD PO ONE (14:00)
[2017-11-09 14:45] VITALS: RESP 20
--- NOTE | 2017-11-09 17:29 | PN ---
DATE: 11/09/2017 SUBJECTIVE: The patient is 62 years old who was admitted because of increasing abdominal girth. She was found to have ascites and she also has bilateral leg swelling, has been getting albumin along with Lasix with good result. Her ascites was tapped and 3 L of fluid was removed. The patient is sitting in chair, seems to be comfortable. OBJECTIVE: VITAL SIGNS: She is afebrile, pulse 93, respirations 20, blood pressure 96/70. LUNGS: Bilateral fair airflow. No rhonchi or crackle. HEART: S1 and S2 audible. ABDOMEN: Soft. No ascites noted. EXTREMITIES: Bilateral leg, no edema. LABORATORY EXAM: WBC is 4.7, hemoglobin 9.2, hematocrit 28, platelets of 164. Chemistry: Sodium 139, potassium 4.4, chloride 106, CO2 of 25. BUN 38, creatinine 0.5. Blood sugar of 108. AST 64, ALT 92. Urine has Gram-positive cocci. She has stage IV sacral decubiti. ASSESSMENT: 1. Significant weight loss, probably secondary to being on atenolol along with malnutrition because of her previous bariatric surgery. 2. Hypoalbuminemia. 3. Anemia. 4. 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 5. History of depression. PLAN: Currently, the patient is on PPN. I will discontinue her albumin. Continue her on Lovenox. Continue her on pancreatic enzymes. I am awaiting insurance company's approval for subacute rehab where she can receive her PPN. Rad Onofre MD
[2017-11-09] MEDS: Amino/Dext 5/20 1,000 ML IV SCH (17:45)
--- NOTE | 2017-11-10 02:21 | PN ---
DATE: 11/09/2017 SUBJECTIVE: The patient is in bed, in no acute distress, nontoxic. Patient was seen earlier this morning in room 561, bed 2. PHYSICAL EXAMINATION: VITAL SIGNS: Temperature is 97, blood pressure is 90/70, respiratory rate of 20. HEENT: Unremarkable. NECK: Supple. LUNGS: Decreased breath sounds. HEART: Normal S1 and S2. ABDOMEN: Soft, nontender. LABORATORY DATA: Reveals a white count of 4.7, hemoglobin of 9, platelet 164. BUN of 38, creatinine of 0.5. Immunology is noted. Urine culture is noted. ASSESSMENT AND PLAN: This is a 62-year female, seen early this morning candiduria, Smith catheter, chronic sacral decubitus, with a history of Escherichia coli in urinary tract, history of bilateral lower extremity cellulitis, history of bilateral lower extremity skin and skin structure infection with methicillin-sensitive Staphylococcus aureus and Klebsiella, on Bactroban to the sacral area. Patient is chronically ill with a low body mass index and overall prognosis is quite poor, off of any antibiotics at this time. James Latif MD
[2017-11-10] MEDS: Oxycodone/Acetaminophen 10/325 mg Tab PO PRN ×3 (04:58→15:50)
[2017-11-10] MEDS: PrednisoLONE 1% Opht Susp(5 ml) OD SCH (05:00)
[2017-11-10] MEDS: Pantoprazole 40 mg EC Tab PO SCH (05:00)
[2017-11-10] MEDS: Amylase/Lipase/Protease 5,000 Units ECC PO SCH ×2 (10:59→15:49)
[2017-11-10] MEDS: Enoxaparin 30 mg Syringe SC SCH (11:04)
--- NOTE | 2017-11-10 15:33 | PN ---
DATE: 11/10/2017 SUBJECTIVE: The patient is in bed, seen earlier today in 565. The patient is seen earlier, in no acute distress, nontoxic. No fevers and chills. PHYSICAL EXAMINATION: VITAL SIGNS: Temperature is 98, blood pressure is 96/70, respiratory rate of 20, heart rate of 93. HEENT: Examination of HEENT is unremarkable. NECK: Supple. LUNGS: Have decreased breath sounds. HEART: Normal S1 and S2. ABDOMEN: Soft, nontender. LABORATORY DATA: Laboratory examination reveals a white count of 4.7, hemoglobin of 9, platelets of 164. Chemistries are reviewed. BUN of 38, creatinine of 0.5. Urinalysis is noted. Microbiology reveals the urine culture is Enterococcus faecalis. The blood cultures are no growth. The patient is allergic to penicillin. Review of orders reveals the patient to be off of antibiotics. ASSESSMENT AND PLAN: A 62-year-old female, seen earlier this morning with sacral decubitus and Smith catheter, history of Escherichia coli urinary tract infection, bilateral lower extremity cellulitis, history of bilateral extremity skin and skin structure infection and sensitive Staphylococcus aureus and Klebsiella, sacral area, chronically ill and low body mass index. Currently, off of antibiotics, afebrile, normal white count with Enterococcus in the urine culture and the Smith, would not treat this at this point. We will follow with you. The patient is at risk for developing nosocomial infections. James Latif MD
[2017-11-10] MEDS: ADDERALL 10 MG PO SCH (15:49)
[2017-11-10] MEDS: Collagenase 250 Units/gm Ointment(30 gm) TOP SCH (15:50)
--- NOTE | 2017-11-10 16:33 | CP.PCM.PN ---
Subjective - Date & Time of Evaluation Date of Evaluation: 11/10/17 Time of Evaluation: 11:00 - Subjective Subjective: Seen and examined at the bedside earlier today, chart review. Patient with no new complaints. Denies nausea, vomiting, or abdominal pain. Having bowel movements, no diarrhea reports of overt GI bleed. Continues to tolerate oral intake. On TPN. Objective - Vital Signs/Intake and Output Vital Signs (last 24 hours): Temp Pulse Resp BP Pulse Ox 98.1 F 86 20 90/61 L 100 11/10/17 06:00 11/10/17 06:00 11/10/17 06:00 11/10/17 11:01 11/10/17 06:00 Intake and Output: 11/10/17 11/10/17 06:59 18:59 Intake Total 1418 360 Output Total 800 500 Balance 618 -140 - Medications Medications: Current Medications Amylase (Pancrease 87531 U-5000 U-11034 U) 5,000 unit PO ACTID [facility] Last Admin: 11/10/17 15:49 Dose: 5,000 unit Buspirone HCl (Buspar) 5 mg PO BID [facility] PRN Reason: Protocol Last Admin: 11/10/17 11:00 Dose: 5 mg Citalopram Hydrobromide (Celexa) 20 mg PO DAILY [facility] Last Admin: 11/10/17 11:00 Dose: 20 mg Collagenase (Santyl) 0 gm TOP DAILY [facility] Last Admin: 11/10/17 15:50 Dose: 1 applic Enoxaparin Sodium (Lovenox) 30 mg SC Q12H [facility] PRN Reason: Protocol Last Admin: 11/10/17 11:04 Dose: 30 mg Fentanyl (Duragesic) 1 patch TD Q72H [facility] Last Admin: 11/09/17 21:52 Dose: 1 patch Furosemide (Lasix) 20 mg IVP DAILY [facility] Last Admin: 11/10/17 11:01 Dose: 20 mg Gabapentin (Neurontin) 300 mg PO TID [facility] PRN Reason: Protocol Last Admin: 11/10/17 15:52 Dose: 300 mg Amino Acids (Clinimix 5/20 % (1000 Ml)) 1,000 mls @ 41.667 mls/hr IV .Q24H [facility] Last Admin: 11/09/17 17:45 Dose: 41.667 mls/hr Loratadine (Claritin) 10 mg PO DAILY PRN PRN Reason: Allergy symptoms Last Admin: 11/09/17 10:50 Dose: 10 mg Mupirocin (Bactroban Ointment) 0 gm TOP BID [facility] Last Admin: 11/10/17 15:49 Dose: 1 applic Adderall Xr 10 Mg ((Home Med)) 10 mg PO DAILY [facility] Last Admin: 11/10/17 15:49 Dose: Not Given Ondansetron HCl (Zofran Inj) 4 mg IVP Q6H PRN PRN Reason: Nausea/Vomiting Last Admin: 11/10/17 11:18 Dose: 4 mg Oxycodone/Acetaminophen (Percocet 10/325 Mg Tab) 1 tab PO Q4H PRN PRN Reason: Pain, moderate (4-7) Last Admin: 11/10/17 15:50 Dose: 1 tab Pantoprazole Sodium (Protonix Ec Tab) 40 mg PO 0600 [facility] Last Admin: 11/10/17 05:00 Dose: 40 mg Polyethylene Glycol (Miralax) 17 gm PO DAILY PRN PRN Reason: Constipation Last Admin: 11/07/17 09:17 Dose: 17 gm Prednisolone Acetate (Pred Forte 1% Opht Susp) 1 ml OD Q8 [facility] Last Admin: 11/10/17 05:00 Dose: 1 drop Prednisolone Acetate (Pred Forte 1% Opht Susp) 1 ml OS Q12 [facility] Last Admin: 11/09/17 21:53 Dose: 1 drop Spironolactone (Aldactone) 50 mg PO DAILY [facility] Last Admin: 11/10/17 11:00 Dose: 50 mg - Labs Labs: 11/09/17 05:15 11/09/17 05:15 PT 12.1 SECONDS (9.4-12.5) 10/28/17 23:50 INR 1.06 (0.93-1.08) 10/28/17 23:50 APTT 35.0 Seconds (25.1-36.5) 10/28/17 23:50 - Constitutional Appears: No Acute Distress - Head Exam Head Exam: NORMOCEPHALIC - Eye Exam Eye Exam: Normal appearance. absent: Scleral icterus - ENT Exam ENT Exam: Mucous Membranes Moist - Neck Exam Neck Exam: Normal Inspection - Respiratory Exam Respiratory Exam: NORMAL BREATHING PATTERN. absent: Respiratory Distress - Cardiovascular Exam Cardiovascular Exam: +S1, +S2 - GI/Abdominal Exam GI & Abdominal Exam: Soft, Normal Bowel Sounds. absent: Guarding, Tenderness, Rebound - Extremities Exam Extremities Exam: absent: Calf Tenderness, Pedal Edema - Neurological Exam Neurological Exam: Alert, Awake, Oriented x3 - Skin Skin Exam: Dry, Warm Assessment and Plan - Assessment and Plan (Free Text) Assessment: ASSESSMENT: Anemia, s/p blood transfusion Resolved Diarrhea, differential Malabsorption, previous MRCP no pancreatic mass noted Recurrent Ascites, s/p paracentesis, 3L removed Abnormal LFT, now improved Weight Loss/Malnutrition Recent Exp lap, no mass seen 09/2017 PLAN: on Regular diet celiac disease panel negative continue TPN on Miralax prn , if no BM 2days monitor LFT closely while on TPN on Albumin on Pancreatic enzymes 5000U before meals DVT prophylaxsis GI propylaxsis Recommend outpatient PET when patient is optimal would benefit from a colonoscopy plan being made to send to [facility]. Seen and discussed w/ Dr. Alvarado.
[2017-11-10 18:25] VITALS: BP 79/53; PULSE 72; TEMP 98.3; O2SAT 98
--- NOTE | 2017-11-11 07:09 | DS ---
HISTORY OF PRESENT ILLNESS: The patient is a 62-year-old, who was admitted because of increasing girth of the abdomen, was found to have ascites, had 3 L of fluid drained. Also had bilateral leg swelling, so was needed to be started on albumin and diuresed with Lasix. She also has stage IV sacral decubitus being cared by surgical team. PHYSICAL EXAMINATION: GENERAL: She is awake, alert, oriented, communicative. VITAL SIGNS: She is afebrile. Pulse 86, respirations 20, blood pressure 90/61. LUNGS: Bilateral good airflow. No rhonchi or crackles. HEART: S1 and S2 audible. ABDOMEN: Soft, nontender. No rebound. No guarding. NEUROLOGIC: She is awake, alert, oriented, communicative. EXTREMITIES: Able to move all extremities. Her sacroiliac has been dressed. Bilateral legs, no edema or ulcer. Right big toe wound almost healed. LABORATORY DATA: Blood sugar 169. Urine growing Enterococcus faecalis, probably contamination. Sacral wound has MRSA. ASSESSMENT: 1. Malnutrition, multifactorial. 2. Cirrhosis of liver status post paracentesis, 3 L of fluid removed. 3. History of bariatric surgery. 4. Hypoalbuminemia. 5. Anemia. 6. History of depression. 7. Sarcoidosis. 8. Multiple sclerosis. PLAN: The patient is being discharged to subacute rehab. The patient also has left arm deep venous thrombosis and for that she is on Lovenox. So the patient is being transferred to subacute rehab, where she will receive PPN and she will have local wound care. She need to have PET scan done as outpatient to rule out occult malignancy; that will be arranged by Dr. Guo as outpatient. Rad Onofre MD
== END 2017-11-10 21:45 | DRG 432 ==
LOC: ED 17:58 → ERH 21:02 → 2RNO 10-29 00:50 → 5RNO 10-31 19:02
PROVIDERS: ADMIT Internal Medicine; ATTEND Internal Medicine
PROC: 3E0336Z Introduction of Nutritional Substance into Peripheral Vein, Percutaneous Approach (ICD-10-PCS; 2017-11-01)
PROC: 0HBRXZZ Excision of Toe Nail, External Approach (ICD-10-PCS; 2017-11-01)
PROC: 0W9G3ZZ Drainage of Peritoneal Cavity, Percutaneous Approach (ICD-10-PCS; principal; 2017-11-01 14:00)
PROC: 30233N1 Transfusion of Nonautologous Red Blood Cells into Peripheral Vein, Percutaneous Approach (ICD-10-PCS; 2017-11-04)
PROC: 02HV33Z Insertion of Infusion Device into Superior Vena Cava, Percutaneous Approach (ICD-10-PCS; 2017-11-07)
PROC: B548ZZA Ultrasonography of Superior Vena Cava, Guidance (ICD-10-PCS; 2017-11-07)
DX: K74.60 Unspecified cirrhosis of liver (principal); E43 Unspecified severe protein-calorie malnutrition; L89.154 Pressure ulcer of sacral region, stage 4; R18.8 Other ascites; R64 Cachexia; Z68.1 Body mass index [BMI] 19.9 or less, adult; I82.622 Acute embolism and thrombosis of deep veins of left upper extremity; B37.49 Other urogenital candidiasis; E83.119 Hemochromatosis, unspecified; G35 Multiple sclerosis; D86.9 Sarcoidosis, unspecified; D64.9 Anemia, unspecified; L60.0 Ingrowing nail; L03.031 Cellulitis of right toe; I95.9 Hypotension, unspecified; K59.03 Drug induced constipation; T40.605A Adverse effect of unspecified narcotics, initial encounter; E78.5 Hyperlipidemia, unspecified; F32.9 Major depressive disorder, single episode, unspecified; Z87.440 Personal history of urinary (tract) infections; Z74.01 Bed confinement status; Z87.442 Personal history of urinary calculi; Z98.84 Bariatric surgery status; Z87.891 Personal history of nicotine dependence

== ENCOUNTER 2018-07-14 13:53 | Outpatient (CLI) | payer MEDICARE | END 2018-07-14 13:54 | disposition home or self-care (01) | LOC: RAD 13:53 | DX: S83.241A Other tear of medial meniscus, current injury, right knee, initial encounter (principal) ==

== ENCOUNTER 2018-10-22 14:01 | Inpatient (IN) | payer MEDICARE, OTHER ==
[2018-10-22] MEDS ORDERED: Morphine 4 mg/ml ISec IVP STA ×2 (14:53→17:17)
[2018-10-22] MEDS ORDERED: TDAP Vaccine 0.5 mL Syr IM ONE (14:54)
--- NOTE | 2018-10-22 16:01 | ED PDOC ---
Arrival/HPI - General Chief Complaint: Upper Extremity Problem/Injury Time Seen by Provider: 10/22/18 14:04 Historian: Patient - History of Present Illness Narrative History of Present Illness (Text): 10/22/18 18:11 63-year-old female presents today with right shoulder pain status post fall. Patient states she was walking her dog the dog chased after a cat causing her to fall landing on the right shoulder. Patient is complaining of pain to the right shoulder and right knee. Patient denies hitting her head. No headaches dizziness or weakness. Unsure of last tetanus shot. Patient states the incident occurred about 1 hour prior to arrival. Patient states her son put her into a sling she showered and then came to the emergency room. No LOC. 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 - Renal Hx Renal Disorder: Yes (L KIDNEY CYST,H/O LITHOTRYPSIES) Hx Kidney Stones: Yes - Endocrine/Metabolic Hx Endocrine Disorders: Yes Hx Hyperthyroidism: Yes - Hematological/Oncological Hx Blood Transfusions: Yes Hx Blood Transfusion Reaction: No - Integumentary Hx Dermatological Disorder: Yes Other/Comment: 10-04-17 sacral pressure ulcer stage 2 4x2 cm,with minimal serous drainage. Bilateral le edema pitting +4.Extending to abdominal area.Has ascites - Musculoskeletal/Rheumatological Hx Musculoskeletal Disorders: Yes Hx Falls: Yes Other/Comment: MS - Gastrointestinal Hx Gastrointestinal Disorders: Yes Other/Comment: ASCITES - Genitourinary/Gynecological Hx Genitourinary Disorders: Yes (nephrolithiasis) - Psychiatric Hx Psychophysiologic Disorder: Yes Hx Depression: Yes Hx Substance Use: No - Surgical History Hx Appendectomy: Yes Hx Cholecystectomy: Yes Hx Mastectomy: No Other/Comment: B/L knee Sx - Anesthesia Hx Anesthesia Reactions: No Hx Malignant Hyperthermia: No - Suicidal Assessment Feels Threatened In Home Enviroment: No Family/Social History - Physician Review Nursing Documentation Reviewed: Yes Family/Social History: Unknown Family HX Smoking Status: Former Smoker Hx Alcohol Use: No Hx Substance Use: No Hx Substance Use Treatment: No Allergies/Home Meds Allergies/Adverse Reactions: Allergies black pepper Allergy (Verified 10/28/17 18:13) ITCHING codeine Allergy (Verified 10/28/17 18:13) NAUSEA Patient states that it was due to tylenol with codeine. Patient takes codeine and percocets at home. Penicillins Allergy (Verified 10/28/17 18:13) SWELLING Sulfa (Sulfonamide Antibiotics) Allergy (Verified 10/28/17 18:13) RASH Home Medications: Home Meds Medication Instructions Recorded Confirmed Dextroamphetamine/Amphetamine 20 mg PO DAILY 10/28/17 10/28/17 [Adderall Xr 20 mg Capsule] Review of Systems - Review of Systems Constitutional: absent: Fatigue, Fevers Respiratory: absent: SOB, Cough Cardiovascular: absent: Chest Pain, Palpitations Gastrointestinal: absent: Abdominal Pain, Constipation, Diarrhea, Nausea, Vomiting Genitourinary Female: absent: Dysuria, Frequency, Hematuria Musculoskeletal: Arthralgias. absent: Back Pain, Neck Pain Skin: Other (abrasion right knee). absent: Rash, Pruritis Neurological: absent: Headache, Dizziness Psychiatric: absent: Anxiety, Depression Physical Exam Vital Signs Reviewed: Yes Vital Signs Temp Pulse Resp BP Pulse Ox 10/22/18 14:42 98.1 F 73 18 127/77 100 Temperature: Afebrile Blood Pressure: Normal Pulse: Regular Respiratory Rate: Normal Appearance: Positive for: Well-Appearing, Non-Toxic, Comfortable Pain Distress: None Mental Status: Positive for: Alert and Oriented X 3 - Systems Exam Head: Present: Atraumatic Mouth: Present: Moist Mucous Membranes Neck: Present: Normal Range of Motion. No: MIDLINE TENDERNESS, Paraspinal Tenderness Respiratory/Chest: Present: Clear to Auscultation, Good Air Exchange. No: Respiratory Distress, Accessory Muscle Use Cardiovascular: Present: Regular Rate and Rhythm, Normal S1, S2. No: Murmurs Abdomen: No: Tenderness, Distention, Rebound, Guarding Back: Present: Normal Inspection Upper Extremity: Present: NORMAL PULSES, Tenderness (right shoulder; + ttp over anterior and lateral aspect of proximal humerus. + edema and ecchymosis; sensation and distal pulses intact; cap refill <2. decreased rom of shoulder. no elbow or forearm tenderness. ), Swelling, Neurovascularly Intact, Capillary Refill < 2s. No: Normal ROM, Erythema Lower Extremity: Present: Normal ROM, Tenderness (right knee; + ttp over anterior aspect of right knee; full rom of knee. superficial abrasion over anterior aspect of knee.), Neurovascularly Intact Neurological: Present: GCS=15, Speech Normal, Motor Func Grossly Intact, Normal Sensory Function Skin: Present: Warm, Dry Psychiatric: Present: Alert, Oriented x 3 Medical Decision Making ED Course and Treatment: 10/22/18 18:14 63-year-old female with right humerus and shoulder pain status post fall X-rays of the right shoulder and right humerus show a minimally displaced fracture of the greater tuberosity of the proximal humerus X-ray of the right knee: No fracture Tetanus updated. Patient requiring multiple doses of morphine for pain CBC within normal limits CMP elevated LFTs Patient reassessment: Patient feeling slightly better with medications. sling applied. Case discussed with Dr. Day covering for Dr. Onofre. accepts obs status admission for humerus fracture with intractable pain. case discussed with dr. Sunshine who has seen the patient in the past. discussed results of xray. he advised sling and he will see the patient tomorrow. pt reassessment; pt eating in er. resting comfortably. her fentanyl patch was removed. Impression: Humerus fracture, abrasion knee, knee pain Admit MedSurg obs. - RAD Interpretation Radiology Orders: 10/22/18 14:41 SHOULDER RIGHT [RAD] Stat 10/22/18 14:53 KNEE W PATELLA RIGHT 3 VIEW [RAD] Stat 10/22/18 15:28 HUMERUS RIGHT [RAD] Stat - Medication Orders Current Medication Orders: Discontinued Medications Morphine Sulfate (Morphine) 4 mg IVP STAT STA Stop: 10/22/18 14:54 Last Admin: 10/22/18 15:12 Dose: 4 mg MAR Pain Assessment Document 10/22/18 15:12 EQ (Rec: 10/22/18 15:13 EQ [id number]) Pain Reassessment Is this a pain reassessment? No Sleep Is patient sleeping during reassessment? No Presence of Pain Presence of Pain Yes IVP Administration Document 10/22/18 15:12 EQ (Rec: 10/22/18 15:13 EQ [id number]) Charges for Administration # of IVP Administrations 1 Ondansetron HCl (Zofran Inj) 4 mg IVP STAT STA Stop: 10/22/18 14:54 Last Admin: 10/22/18 15:13 Dose: 4 mg IVP Administration Document 10/22/18 15:13 EQ (Rec: 10/22/18 15:13 EQ [id number]) Charges for Administration # of IVP Administrations 1 Tetanus/Reduced Diphtheria/Acell Pertussis (Boostrix Vaccine Inj) 0.5 ml IM .ONCE ONE Stop: 10/22/18 14:55 Last Admin: 10/22/18 15:13 Dose: 0.5 ml Immunization Registry Document 10/22/18 15:13 EQ (Rec: 10/22/18 15:13 EQ [id number]) [facility]-Date provided 06/07/18 Disposition/Present on Arrival - Present on Arrival Any Indicators Present on Arrival: No History of DVT/PE: No History of Uncontrolled Diabetes: No Urinary Catheter: No History of Decub. Ulcer: No History Surgical Site Infection Following: None - Disposition Have Diagnosis and Disposition been Completed?: Yes Diagnosis: Fracture, humerus, Knee pain, Abrasion, knee Disposition: HOSPITALIZED Disposition Time: 18:00 Patient Plan: Observation Patient Problems: Current Active Problems Problem Status Onset Abrasion, knee Acute Fracture, humerus Acute Knee pain Acute Condition: FAIR
--- NOTE | 2018-10-22 16:02 | RAD ---
Date of service: 10/22/2018 PROCEDURE: Radiographs of the Right Shoulder Radiographs of the right humerus HISTORY: fall, r/o dislocation COMPARISON: No prior. TECHNIQUE: 3 views obtained of the right shoulder. Two views of the right humerus. FINDINGS: BONES: Minimally displaced fracture of the greater tuberosity. JOINTS: Glenohumeral acromioclavicular joint degenerative changes. SOFT TISSUES: Normal. OTHER FINDINGS: None. IMPRESSION: Minimally displaced fracture of the greater tuberosity.
--- NOTE | 2018-10-22 16:05 | RAD ---
Date of service: 10/22/2018 PROCEDURE: Right Knee Radiographs. HISTORY: knee pain COMPARISON: Right knee radiographs dated 06/07/2018. TECHNIQUE: 2 views obtained. FINDINGS: BONES: No acute fracture. JOINTS: Tricompartmental narrowing with degenerative spurring. JOINT EFFUSION: None. OTHER FINDINGS: None. IMPRESSION: No demonstrated fracture or dislocation. Tricompartmental arthritic changes.
[2018-10-22 16:33] LABS: BASO # 0.02 K/mm3 (0.0-2.0); BASO % 0.4 % (0.0-3.0); EOS % 0.7 % (1.5-5.0); HEMOGLOBIN 9.1 g/dL (12.0-16.0); LYMPH # 0.8 (1.2-3.4); LYMPH % 14.2 % (22.0-35.0); MEAN CELL VOLUME 92.7 fl (80.0-105.0); MEAN CORPUSCULAR HEMOGLOBIN 27.5 pg (25.0-35.0); MEAN CORPUSCULAR HGB CONC 29.6 g/dl (31.0-37.0); MONO # 0.3 (0.1-0.6); RBC 3.31 10^6/uL (3.5-6.1); RED CELL DISTRIBUTION WIDTH 17.8 % (11.5-14.5); WHITE BLOOD COUNT 5.4 10^3/uL (4.5-11.0)
[2018-10-22 16:43] LABS: INR 1.06; PROTHROMBIN TIME 11.8 SECONDS (9.4-12.5)
[2018-10-22 16:44] LABS: ALB/GLOB RATIO 1.1 (1.1-1.8); ALBUMIN 3.4 g/dL (3.0-4.8); ALT/SGPT 22 U/L (7-56); AST/SGOT 29 U/L (14-36); BLOOD UREA NITROGEN 17 mg/dL (7-21); CALCIUM 7.8 mg/dL (8.4-10.5); GFR NON-AFRICAN AMERICAN > 60
[2018-10-22] MEDS ORDERED: Oxycodone/Acetaminophen 5/325 mg Tab PO PRN (19:58)
[2018-10-22] MEDS: Oxycodone/Acetaminophen 5/325 mg Tab PO PRN (20:25)
[2018-10-22] MEDS: Morphine 4 mg/ml ISec IVP PRN (22:24)
[2018-10-22 22:33] VITALS: BMI 25.4
--- NOTE | 2018-10-23 01:42 | CP.PCM.PN ---
Subjective - Date & Time of Evaluation Date of Evaluation: 10/23/18 Time of Evaluation: 01:37 - Subjective Subjective: Patient was seen at bedside. I was asked to co-sign order Zofran 4 mg IV x 1. Patient is asleep now. patient has allergy to codeine. She wanted Zofran before getting morphine. Has no other complaints. Pertinent medical record was reviewed. This 63 year old woman admitted with respiratory discomfort and leg swelling. Has PMH of Cirrhosis, gastric bypass surgery, chronic anemia, multiple sclerosis, sarcoidosis. Objective - Vital Signs/Intake and Output Vital Signs (last 24 hours): Temp Pulse Resp BP Pulse Ox 98.2 F 86 18 144/85 97 10/22/18 22:00 10/22/18 22:00 10/22/18 22:38 10/22/18 22:00 10/22/18 22:00 - Medications Medications: Current Medications Morphine Sulfate (Morphine) 4 mg IVP Q4 PRN PRN Reason: Pain, severe (8-10) Last Admin: 10/22/18 22:24 Dose: 4 mg Oxycodone/Acetaminophen (Percocet 5/325 Mg Tab) 1 tab PO Q4 PRN PRN Reason: Pain, moderate (4-7) Stop: 10/26/18 00:01 Last Admin: 10/22/18 20:25 Dose: 1 tab Spironolactone (Aldactone) 50 mg PO DAILY JENNY - Labs Labs: 10/22/18 14:10 10/22/18 14:10 PT 11.8 SECONDS (9.4-12.5) 10/22/18 14:10 INR 1.06 10/22/18 14:10 APTT 27.0 Seconds (26.9-38.3) 10/22/18 14:10 - Constitutional Appears: Well, No Acute Distress - Head Exam Head Exam: ATRAUMATIC, NORMAL INSPECTION, NORMOCEPHALIC - Eye Exam Eye Exam: Normal appearance - ENT Exam ENT Exam: Normal External Ear Exam - Neck Exam Neck Exam: Normal Inspection - Respiratory Exam Respiratory Exam: NORMAL BREATHING PATTERN - Cardiovascular Exam Cardiovascular Exam: absent: JVD - GI/Abdominal Exam GI & Abdominal Exam: absent: Distended - Rectal Exam Rectal Exam: Deferred - Exam Additional comments: Deferred. - Extremities Exam Extremities Exam: Normal Inspection - Back Exam Back Exam: NORMAL INSPECTION - Neurological Exam Neurological Exam: Alert - Psychiatric Exam Psychiatric exam: Normal Affect, Normal Mood - Skin Skin Exam: Normal Color Assessment and Plan - Assessment and Plan (Free Text) Assessment: Possible nausea from morphine Multiple sclerosis. Sarcoidosis. Chronic anemia. History of gastric bypass.
[2018-10-23] MEDS ORDERED: HYDROmorphone 0.5 mg/0.5 ml ISec IM STA (02:12)
[2018-10-23] MEDS: Oxycodone/Acetaminophen 5/325 mg Tab PO PRN (06:15)
[2018-10-23] MEDS ORDERED: Acetaminophen 650mg/20.3ml solution UD PO PRN (07:15)
[2018-10-23] MEDS ORDERED: POLYETHYLENE GLYCOL 3350 17 GM/Dose PACKET PO PRN (07:15)
--- NOTE | 2018-10-23 07:48 | CP.PCM.CON ---
History of Present Illness - History of Present Illness History of Present Illness: Awake, alert,lying in bed, complaining of right shoulder pain Reason for consultation: Pre-op risk stratification for possible surgery of right shoulder post fall Brief history of present illness: A 63 year old female who was brought to the ER due to right shoulder pain post fall. She was walking her dog when dog chased cat and caught off guard and causing her to fall landing on the right shoulder and right knee. Denies hitting her head but now complaining of right hip pain. History of multiple sclerosis, kidney stones post lithotrypsies, hyperthyroidism, ascites, liver cirrhosis, gastric bypass, chronic anemia, sacral decubitus, nephrolithiasis, sarcoidosis, depression,appendectomy, cholecystectomy bilateral knee surgery. Hospitalized last year 10/2017 for ascitis/liver cirrhosis and paracentesis done with 3 liters of fluid. Consult was called to clear for surgery. Seen and examined by me and Dr. Willson Review of Systems - Review of Systems All systems: reviewed and no additional remarkable complaints except Review of Systems: as per HPI Past Patient History - Infectious Disease Hx of Infectious Diseases: None - Tetanus Immunizations Tetanus Immunization: Unknown - Past Medical History & Family History Past Medical History?: Yes - Past Social History Smoking Status: Never Smoked - CARDIAC Hx Cardiac Disorders: No - PULMONARY Hx Respiratory Disorders: Yes (SMOKED CIGARETTES) Other/Comment: SARCOIDOSIS - NEUROLOGICAL Hx Neurological Disorder: Yes (MS) - HEENT Hx HEENT Problems: Yes Other/Comment: 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 - RENAL Hx Chronic Kidney Disease: Yes (L KIDNEY CYST,H/O LITHOTRYPSIES) Hx Kidney Stones: Yes - ENDOCRINE/METABOLIC Hx Endocrine Disorders: Yes Hx Hyperthyroidism: Yes - HEMATOLOGICAL/ONCOLOGICAL Hx Blood Disorders: Yes Hx Anemia: Yes - INTEGUMENTARY Hx Dermatological Problems: Yes Other/Comment: 10-04-17 sacral pressure ulcer stage 2 4x2 cm,with minimal serous drainage. Bilateral le edema pitting +4.Extending to abdominal area.Has ascites - MUSCULOSKELETAL/RHEUMATOLOGICAL Hx Falls: Yes - GASTROINTESTINAL Hx Gastrointestinal Disorders: Yes Other/Comment: ASCITES - GENITOURINARY/GYNECOLOGICAL Hx Genitourinary Disorders: Yes (nephrolithiasis) - PSYCHIATRIC Hx Psychophysiologic Disorder: Yes Hx Depression: Yes - SURGICAL HISTORY Hx Appendectomy: Yes Hx Cholecystectomy: Yes Hx Mastectomy: No Other/Comment: B/L knee Sx - ANESTHESIA Hx Anesthesia Reactions: No Hx Malignant Hyperthermia: No Meds Allergies/Adverse Reactions: Allergies Allergy/AdvReac Type Severity Reaction Status Date / Time black pepper Allergy ITCHING Verified 10/28/17 18:13 codeine Allergy NAUSEA Verified 10/28/17 18:13 Penicillins Allergy SWELLING Verified 10/28/17 18:13 Sulfa (Sulfonamide Allergy RASH Verified 10/28/17 18:13 Antibiotics) - Medications Medications: Current Medications Acetaminophen (Tylenol 650mg/20.3ml Solution Ud) 650 mg PO Q6H PRN PRN Reason: Pain, Mild (1-3) Amylase (Pancrease [id number] U) 5,000 unit PO ACTID JENNY Buspirone HCl (Buspar) 5 mg PO BID [facility]; Protocol Citalopram Hydrobromide (Celexa) 20 mg PO DAILY [facility] Fentanyl (Duragesic) 1 patch TD Q72H JENNY Gabapentin (Neurontin) 300 mg PO HS JENNY; Protocol Hydromorphone HCl (Dilaudid) 1 mg IVP Q4H PRN PRN Reason: Pain, moderate (4-7) Loratadine (Claritin) 10 mg PO DAILY PRN PRN Reason: Allergy symptoms Morphine Sulfate (Morphine) 4 mg IVP Q4 PRN PRN Reason: Pain, severe (8-10) Last Admin: 10/22/18 22:24 Dose: 4 mg Oxycodone/Acetaminophen (Percocet 5/325 Mg Tab) 1 tab PO Q4 PRN PRN Reason: Pain, moderate (4-7) Stop: 10/26/18 00:01 Last Admin: 10/23/18 06:15 Dose: 1 tab Pantoprazole Sodium (Protonix Ec Tab) 40 mg PO 0600 [facility] Polyethylene Glycol (Miralax) 17 gm PO DAILY PRN PRN Reason: Constipation Spironolactone (Aldactone) 50 mg PO DAILY [facility] Physical Exam - Constitutional Appears: Non-toxic, No Acute Distress - Head Exam Head Exam: NORMAL INSPECTION, NORMOCEPHALIC - Eye Exam Eye Exam: Normal appearance Pupil Exam: NORMAL ACCOMODATION - ENT Exam ENT Exam: Mucous Membranes Moist, Normal Exam - Respiratory Exam Respiratory Exam: Clear to Auscultation Bilateral, NORMAL BREATHING PATTERN - Cardiovascular Exam Cardiovascular Exam: +S1, +S2 - GI/Abdominal Exam GI & Abdominal Exam: Normal Bowel Sounds, Soft - Extremities Exam Extremities exam: Positive for: full ROM, normal capillary refill Additional comments: right shoulder pain with sling - Neurological Exam Neurological exam: Alert, Oriented x3 - Psychiatric Exam Psychiatric exam: Normal Affect, Normal Mood - Skin Skin Exam: Dry, Normal Color, Warm Results - Vital Signs Recent Vital Signs: Last Vital Signs Temp 98.2 F 10/22/18 22:00 Pulse 86 10/22/18 22:00 Resp 18 10/22/18 22:38 BP 144/85 10/22/18 22:00 Pulse Ox 97 10/22/18 22:00 - Labs Result Diagrams: 10/22/18 14:10 10/22/18 14:10 Labs: Laboratory Results - last 24 hr 10/22/18 10/22/18 10/22/18 14:10 14:10 14:10 WBC 5.4 RBC 3.31 L Hgb 9.1 L Hct 30.7 L MCV 92.7 MCH 27.5 MCHC 29.6 L RDW 17.8 H Plt Count 274 MPV 9.0 Neut % (Auto) 79.7 H Lymph % (Auto) 14.2 L [place] % (Auto) 5.0 Eos % (Auto) 0.7 L Baso % (Auto) 0.4 Lymph # (Auto) 0.8 L [place] # (Auto) 0.3 Eos # (Auto) 0.0 Baso # (Auto) 0.02 Absolute Neuts (auto) 4.28 PT 11.8 INR 1.06 APTT 27.0 Sodium 137 Potassium 4.1 Chloride 108 H Carbon Dioxide 22 Anion Gap 11 BUN 17 Creatinine 0.6 L Est GFR ( Amer) > 60 Est GFR (Non-Af Amer) > 60 POC Glucose (mg/dL) Random Glucose 99 Calcium 7.8 L Total Bilirubin 0.1 L AST 29 ALT 22 Alkaline Phosphatase 370 H D Total Protein 6.3 Albumin 3.4 Globulin 3.0 Albumin/Globulin Ratio 1.1 Blood Type Antibody Screen BBK History Checked 10/22/18 10/23/18 16:30 06:33 WBC RBC Hgb Hct MCV MCH MCHC RDW Plt Count MPV Neut % (Auto) Lymph % (Auto) [place] % (Auto) Eos % (Auto) Baso % (Auto) Lymph # (Auto) [place] # (Auto) Eos # (Auto) Baso # (Auto) Absolute Neuts (auto) PT INR APTT Sodium Potassium Chloride Carbon Dioxide Anion Gap BUN Creatinine Est GFR ( Amer) Est GFR (Non-Af Amer) POC Glucose (mg/dL) 114 H Random Glucose Calcium Total Bilirubin AST ALT Alkaline Phosphatase Total Protein Albumin Globulin Albumin/Globulin Ratio Blood Type A NEGATIVE Antibody Screen Negative BBK History Checked Patient has bt Assessment & Plan - Assessment and Plan (Free Text) Assessment: A 63 year old female who was brought to the ER due to right shoulder pain post fall. She was walking her dog when dog chased cat and caught off guard and causing her to fall landing on the right shoulder and right knee. Denies hitting her head but now complaining of right hip pain. History of multiple sclerosis, kidney stones post lithotrypsies, hyperthyroidism, ascites, liver cirrhosis, gastric bypass, chronic anemia, sacral decubitus, nephrolithiasis, sarcoidosis, depression,appendectomy, cholecystectomy bilateral knee surgery. Hospitalized last year 10/2017 for ascitis/liver cirrhosis and paracentesis done with 3 liters of fluid. Consult was called to clear for surgery. Right shoulder X ray done and showed right humerus minimally displaced fracture of the greater tuberosity of the proximal humerus, X-ray of the right knee: No fracture. Echo done on 04/19/17 showed Normal LV size, LVEF 50 %,Mild MR/TR, mild gloval LV hypokinesis. Previous EKG showed NSR with occasional PVC's. Denies chest pain, denies shortness of breath. Will order 12 lead EKG for baseline. Cleared for right shoulder surgery with moderate risk. Will follow up postoperatively. Plan: Complaints of right shoulder pain Pain management For possible right shoulder surgery post fall Ortho on consult Denies chest pain or shortness of breath Cleared for surgery with moderate risk Heart rate stable Blood pressure controlled Continue current treatment Continue current medications TSH, lipid panel, Hgb A1C Will follow up Plan and treatment discussed with Dr. Willson Thank you Dr. Onofre for the opportunity of taking care of Rachelle Mclaughlin - Date & Time Date: 10/23/18 Time: 06:35
--- NOTE | 2018-10-23 08:59 | RAD ---
PROCEDURE: Right Hip Radiographs. HISTORY: rt hip pain from a fall COMPARISON: None. TECHNIQUE: 2 views obtained. FINDINGS: BONES: Normal. No fracture. JOINTS: Normal. SOFT TISSUES: Normal. OTHER FINDINGS: None. IMPRESSION: Normal radiographs of right hip.
[2018-10-23] MEDS: Amylase/Lipase/Protease 5,000 Units ECC PO SCH ×3 (09:34→18:30)
[2018-10-23] MEDS: Morphine 4 mg/ml ISec IVP PRN (10:38)
--- NOTE | 2018-10-23 16:26 | CON ---
DATE: 10/23/2018 ORTHOPEDIC CONSULT REPORT LOCATION: A 63-year-old female in room 570, bed 1. HISTORY OF PRESENT ILLNESS: The patient slipped and fell while walking a dog yesterday and sustained a injury to her right shoulder. X-rays in the ER showed minimally displaced fracture greater tuberosity and we are going to treat this with a sling and no range of motion or weight on it. She also has contusion of her right knee with an abrasion laterally. X-ray shows osteoarthritis of medial joint line from decreased joint space, and that she also has right hip pain, does not appear to be fracture. We are going to order an x-ray for right hip as very tender over greater trochanter of her right hip. So, these injuries, we are going to treat her conservatively with a sling in the right shoulder. No range of motion or weight on that right shoulder, and she could get up out of bed and ambulate with a cane in the left upper extremity, and we will do a new x-ray of her right hip to see if there is any underlying problems. Otherwise, her shoulder fracture could be treated conservatively and this could be treated with mainly antiinflammatory medicines, and I will see her again after the x-rays are done. FINAL DIAGNOSIS: Stable fracture, right great tuberosity. We have to repeat x-rays. If it is displaces, she would need surgical stabilization. If not, she could be treated conservatively for the knee, the shoulder and the hip. Trey Sunshine DO MTDD
--- NOTE | 2018-10-23 19:48 | HP ---
DATE OF EXAM: 10/23/2018 HISTORY OF PRESENT ILLNESS: The patient is 63-year-old, well know, states yesterday she went to walk her dog. She was almost ready to go step on the curb and then her dog saw the cat, got excited and pulled her and then made her fall. She fell on her right side, somehow managed to get up and called ambulance and was brought to emergency room. She was seen by Dr. Sunshine for observation. The patient complained of severe pain and gets severe pain as soon as the medicine effect wears off. The patient lives by herself, unable to take care of herself at home. PAST MEDICAL HISTORY: Significant for; 1. Chronic anemia. 2. History of gamma-globulin anemia. 3. History of cirrhosis. 4. Multiple sclerosis. 5. History of gastric bypass. 6. History of sarcoidosis. ALLERGIES: SHE IS ALLERGIC TO BLACK PEPPER, CODEINE, PENICILLIN AND SULFA. MEDICATION: At home, she is on gabapentin 300 mg at bedtime, Celexa 20 mg daily, MiraLax daily, Protonix 20 mg daily, BuSpar 5 mg twice a day and Fentanyl patch. She is on spironolactone 50 mg daily. She is on loratadine and Lasix. SOCIAL HISTORY: She lives by her son. She used to smoke in the past, socially drinks. PHYSICAL EXAMINATION: GENERAL: She is awake, alert and able to communicate. VITAL SIGNS: She is afebrile. Pulse is 90, respiration 18 and blood pressure 106/81. LUNGS: Bilateral fair airflow. No rhonchi or crackles. HEART: S1 and S2, audible. ABDOMEN: Soft and nontender. No rebound. No guarding. NEUROLOGIC: She is awake, alert and able to communicate. EXTREMITIES: Right arm is in the sling. LABORATORY DATA: WBC 5.4, hemoglobin 9, hematocrit 30.7 and platelet 274. PT 11.8 and INR 1.06. Chemistry; sodium 137, potassium 4.1, chloride 108, CO2 of 22, BUN 17, creatinine 0.6 and blood sugar 119. Had x-ray of the pelvis and hip that is negative. X-ray of right shoulder, minimally displaced fracture of greater tuberosity. ASSESSMENT AND PLAN: 1. Status post fall, right humerus fracture. 2. Multiple sclerosis. 3. History of depression. 4. Cirrhosis of liver. PLAN: Currently, the patient is on BuSpar and citalopram. She is on morphine as needed. She is on Duragesic patch. She is on gabapentin and Protonix. The patient is not able to take care of herself because she is right handed and has right humerus fracture. She will be admitted for pain control and will be transferred to TCU who will manage her activities of daily living while her arm is in a sling. Rad Onofre MD
[2018-10-23] MEDS: HYDROmorphone 2 mg/ml ISec IVP PRN (19:55)
--- NOTE | 2018-10-23 20:09 | CARD ---
APPROVED REPORT Date of service: 10/23/2018 EKG Measurement Heart [id number] MD [id number] <Conclusion> Normal sinus rhythm Minimal voltage criteria for LVH, may be normal variant Cannot rule out small or absent R waves V1-V3, may be due to lead placement or possible septal infarct age undetermined. Abnormal ECG
[2018-10-24] MEDS: Morphine 4 mg/ml ISec IVP PRN ×3 (04:46→22:02)
[2018-10-24] MEDS: Pantoprazole 40 mg EC Tab PO SCH (05:19)
[2018-10-24] MEDS ORDERED: Pantoprazole 40 mg EC Tab PO SCH (06:00)
--- NOTE | 2018-10-24 06:38 | CP.PCM.PN ---
Subjective - Date & Time of Evaluation Date of Evaluation: 10/24/18 Time of Evaluation: 06:25 - Subjective Subjective: Awake, alert,lying in bed, complaining of right shoulder pain Reason for consultation: Pre-op risk stratification for possible surgery of right shoulder, post fall, History of multiple sclerosis,ascites, liver cirrhosis, gastric bypass, chronic anemia, sarcoidosis, depression, bilateral knee surgery. Seen and examined by me and Dr. Willson Objective - Vital Signs/Intake and Output Vital Signs (last 24 hours): Temp Pulse Resp BP Pulse Ox 97.8 F 90 18 122/80 92 L 10/23/18 23:23 10/23/18 14:00 10/23/18 23:23 10/23/18 23:23 10/23/18 23:23 Intake and Output: 10/23/18 10/24/18 18:59 06:59 Intake Total 1960 Balance 1960 - Medications Medications: Current Medications Acetaminophen (Tylenol 650mg/20.3ml Solution Ud) 650 mg PO Q6H PRN PRN Reason: Pain, Mild (1-3) Amylase (Pancrease 85955 U-5000 U-24553 U) 5,000 unit PO ACTID [facility] Last Admin: 10/23/18 18:30 Dose: 5,000 unit Buspirone HCl (Buspar) 5 mg PO BID [facility]; Protocol Last Admin: 10/23/18 18:30 Dose: 5 mg Citalopram Hydrobromide (Celexa) 20 mg PO DAILY [facility] Last Admin: 10/23/18 09:34 Dose: 20 mg Fentanyl (Duragesic) 1 patch TD Q72H [facility] Last Admin: 10/23/18 09:35 Dose: 1 patch Gabapentin (Neurontin) 300 mg PO HS [facility]; Protocol Last Admin: 10/23/18 21:39 Dose: 300 mg Hydromorphone HCl (Dilaudid) 1 mg IVP Q4H PRN PRN Reason: Pain, moderate (4-7) Last Admin: 10/23/18 19:55 Dose: 1 mg Loratadine (Claritin) 10 mg PO DAILY PRN PRN Reason: Allergy symptoms Morphine Sulfate (Morphine) 4 mg IVP Q4 PRN PRN Reason: Pain, severe (8-10) Last Admin: 10/24/18 04:46 Dose: 4 mg Oxycodone/Acetaminophen (Percocet 5/325 Mg Tab) 1 tab PO Q4 PRN PRN Reason: Pain, moderate (4-7) Stop: 10/26/18 00:01 Last Admin: 10/23/18 06:15 Dose: 1 tab Pantoprazole Sodium (Protonix Ec Tab) 40 mg PO 0600 [facility] Last Admin: 10/24/18 05:19 Dose: 40 mg Polyethylene Glycol (Miralax) 17 gm PO DAILY PRN PRN Reason: Constipation Spironolactone (Aldactone) 50 mg PO DAILY [facility] Last Admin: 10/23/18 09:31 Dose: 50 mg - Labs Labs: 10/22/18 14:10 10/22/18 14:10 PT 11.8 SECONDS (9.4-12.5) 10/22/18 14:10 INR 1.06 10/22/18 14:10 APTT 27.0 Seconds (26.9-38.3) 10/22/18 14:10 - Constitutional Appears: Non-toxic, No Acute Distress - Head Exam Head Exam: NORMAL INSPECTION, NORMOCEPHALIC - Eye Exam Eye Exam: Normal appearance Pupil Exam: NORMAL ACCOMODATION - ENT Exam ENT Exam: Mucous Membranes Moist, Normal Exam - Respiratory Exam Respiratory Exam: Clear to Ausculation Bilateral, NORMAL BREATHING PATTERN - Cardiovascular Exam Cardiovascular Exam: +S1, +S2 - GI/Abdominal Exam GI & Abdominal Exam: Soft, Normal Bowel Sounds - Extremities Exam Extremities Exam: Full ROM Additional comments: right shoulder with arm sling left hip tender and swollen - Neurological Exam Neurological Exam: Alert, Awake, Oriented x3 - Psychiatric Exam Psychiatric exam: Normal Affect, Normal Mood - Skin Skin Exam: Dry, Normal Color, Warm Assessment and Plan - Assessment and Plan (Free Text) Assessment: A 63 year old female who was brought to the ER due to right shoulder pain post fall. She was walking her dog when dog chased cat and caught off guard and causing her to fall landing on the right shoulder and right knee. Denies hitting her head but now complaining of right hip pain. History of multiple sclerosis, kidney stones post lithotrypsies, hyperthyroidism, ascites, liver cirrhosis, gastric bypass, chronic anemia, sacral decubitus, nephrolithiasis, sarcoidosis, depression,appendectomy, cholecystectomy bilateral knee surgery. Hospitalized last year 10/2017 for ascitis/liver cirrhosis and paracentesis done with 3 liters of fluid. Consult was called to clear for surgery. Right shoulder X ray done and showed right humerus minimally displaced fracture of the greater tuberosity of the proximal humerus, X-ray of the right knee: No fracture. Echo done on 04/19/17 showed Normal LV size, LVEF 50 %,Mild MR/TR, mild gloval LV hypokinesis. EKG showed NSR poor R progression V1-V4, non specific ST-T changes. Denies chest pain, denies shortness of breath. Cleared for right shoulder surgery with moderate risk if decided to go for surgery. As per Dr. Sunshine, treat conservatively for now, immobilize right shoulder. X ray of hip normal, no fracture, tenderness at site. Echo to reealuate LV function. Car diac status stable. Plan: No distress Complaints of right shoulder pain Pain management Denies chest pain or shortness of breath Cleared for surgery with moderate risk Heart rate stable Blood pressure controlled Echo to evaluate LV function Continue current treatment Continue current medications Will follow up Plan and treatment discussed with Dr. Willson
[2018-10-24 07:02] LABS: BASO # 0.01 K/mm3 (0.0-2.0); BASO % 0.1 % (0.0-3.0); EOS # 0.1 (0.0-0.7); EOS % 1.2 % (1.5-5.0); HEMOGLOBIN 8.1 g/dL (12.0-16.0); LYMPH # 1.6 (1.2-3.4); LYMPH % 23.6 % (22.0-35.0); MEAN CELL VOLUME 90.7 fl (80.0-105.0); MEAN CORPUSCULAR HEMOGLOBIN 26.8 pg (25.0-35.0); MEAN CORPUSCULAR HGB CONC 29.6 g/dl (31.0-37.0); MEAN PLATELET VOLUME 9.1 fl (7.0-11.0); MONO # 0.9 (0.1-0.6); MONO % 12.7 % (1.0-6.0); RBC 3.02 10^6/uL (3.5-6.1); RED CELL DISTRIBUTION WIDTH 17.5 % (11.5-14.5); WHITE BLOOD COUNT 6.8 10^3/uL (4.5-11.0)
[2018-10-24 07:22] LABS: CALCIUM 7.8 mg/dL (8.4-10.5)
[2018-10-24] MEDS: Amylase/Lipase/Protease 5,000 Units ECC PO SCH ×3 (09:36→17:42)
--- NOTE | 2018-10-24 11:16 | CP.PCM.APN ---
Subjective - Date & Time of Evaluation Date of Evaluation: 10/24/18 Time of Evaluation: 10:30 - Subjective Subjective: Pt seen and examined at bedside. She is c/o R shoulder pain worse when she moves it. Otherwise, she is feeling ok. Objective - Vital Signs/Intake and Output Vital Signs (last 24 hours): Temp Pulse Resp BP Pulse Ox 98.2 F 85 18 97/61 L 99 10/24/18 06:00 10/24/18 06:00 10/24/18 06:00 10/24/18 06:00 10/24/18 06:00 Intake and Output: 10/24/18 10/24/18 06:59 18:59 Intake Total 1960 Balance 1960 - Medications Medications: Current Medications Acetaminophen (Tylenol 650mg/20.3ml Solution Ud) 650 mg PO Q6H PRN PRN Reason: Pain, Mild (1-3) Amylase (Pancrease 28742 U-5000 U-62898 U) 5,000 unit PO ACTID [facility] Last Admin: 10/24/18 09:36 Dose: 5,000 unit Buspirone HCl (Buspar) 5 mg PO BID [facility]; Protocol Last Admin: 10/24/18 09:36 Dose: 5 mg Citalopram Hydrobromide (Celexa) 20 mg PO DAILY [facility] Last Admin: 10/24/18 09:36 Dose: 20 mg Fentanyl (Duragesic) 1 patch TD Q72H [facility] Last Admin: 10/23/18 09:35 Dose: 1 patch Gabapentin (Neurontin) 300 mg PO HS [facility]; Protocol Last Admin: 10/23/18 21:39 Dose: 300 mg Hydromorphone HCl (Dilaudid) 1 mg IVP Q4H PRN PRN Reason: Pain, moderate (4-7) Last Admin: 10/23/18 19:55 Dose: 1 mg Loratadine (Claritin) 10 mg PO DAILY PRN PRN Reason: Allergy symptoms Morphine Sulfate (Morphine) 4 mg IVP Q4 PRN PRN Reason: Pain, severe (8-10) Last Admin: 10/24/18 04:46 Dose: 4 mg Oxycodone/Acetaminophen (Percocet 5/325 Mg Tab) 1 tab PO Q4 PRN PRN Reason: Pain, moderate (4-7) Stop: 10/26/18 00:01 Last Admin: 10/23/18 06:15 Dose: 1 tab Pantoprazole Sodium (Protonix Ec Tab) 40 mg PO 0600 [facility] Last Admin: 10/24/18 05:19 Dose: 40 mg Polyethylene Glycol (Miralax) 17 gm PO DAILY PRN PRN Reason: Constipation Spironolactone (Aldactone) 50 mg PO DAILY [facility] Last Admin: 10/24/18 09:36 Dose: 50 mg - Labs Labs: 10/24/18 06:30 10/22/18 14:10 PT 11.8 SECONDS (9.4-12.5) 10/22/18 14:10 INR 1.06 10/22/18 14:10 APTT 27.0 Seconds (26.9-38.3) 10/22/18 14:10 - Constitutional Appears: No Acute Distress - Respiratory Exam Respiratory Exam: Rhonchi, NORMAL BREATHING PATTERN - Extremities Exam Additional comments: R shoulder sling - Neurological Exam Neurological Exam: Alert, Awake, Oriented x3 Assessment and Plan - Assessment and Plan (Free Text) Assessment: Pt is a 63 y.o. female w/ pmhx of chronic anemia, gamma-globulin anemia, cirrhosis, MS, gastric bypass and sarcoidosis who presented in ED w/ R shoulder pain s/p fall. D/W Dr. Sunshine, no plans for surgical intervention. ITS Impressions Shoulder X-Ray 10/22/18 14:41 IMPRESSION: Minimally displaced fracture of the greater tuberosity. Knee X-Ray 10/22/18 14:53 IMPRESSION: No demonstrated fracture or dislocation. Tricompartmental arthritic changes. Humerus X-Ray 10/22/18 15:28 IMPRESSION: Minimally displaced fracture of the greater tuberosity. Hip/Pelvis X-Ray 10/23/18 07:57 IMPRESSION: Normal radiographs of right hip. Plan: Pain management Physical therapy recommends tcu TCU eval pending Meds per mar Will continue to follow.
--- NOTE | 2018-10-24 12:43 | CARD ---
APPROVED REPORT Date of service: 10/24/2018 EXAM: Two-dimensional and M-mode echocardiogram with Doppler and color Doppler. INDICATION LV Function:SystolicDiastolic 2D DIMENSIONS Left Atrium (2D)4.1 (1.6-4.0cm)IVSd1.0 (0.7-1.1cm) LVDd4.5 (3.9-5.9cm)PWd0.9 (0.7-1.1cm) LVDs3.1 (2.5-4.0cm)FS (%) 31.8 % LVEF (%)60.0 (>50%) M-Mode DIMENSIONS Aortic Root2.10 (2.2-3.7cm)Aortic Cusp Exc.1.10 (1.5-2.0cm) Aortic Valve AoV Peak Vxnicrir598.0cm/Holly Peak GR.14mmHg Mitral Valve MV E Yfrczttu74.2cm/sMV A Ylpblysx02.5cm/sE/A ratio0.9 TDI E/Lateral E'0.0E/Medial E'0.0 Tricuspid Valve TR Peak Pdtszdtj201tm/sRAP [id number] Peak Gr.27mmHg [id number] LEFT VENTRICLE The left ventricle is normal size. There is normal left ventricular wall thickness. The left ventricular function is normal.EF-55-60% There is normal LV segmental wall motion. Transmitral Doppler flow pattern is Grade III-reversible restrictive diastolic dysfunction. No left ventricle thrombus noted on this study. There is no ventricular septal defect visualized. There is no left ventricular aneurysm. There is no mass noted in the left ventricle. RIGHT VENTRICLE The right ventricle is normal size. There is normal right ventricular wall thickness. The right ventricular systolic function is normal. ATRIA The left atrium is mildly dilated. The right atrium size is normal. The interatrial septum is intact with no evidence for an atrial septal defect. AORTIC VALVE The aortic valve is thickened but opens well. No aortic regurgitation is present. There is no aortic valvular stenosis. There is no aortic valvular vegetation. MITRAL VALVE The mitral valve is thickened but opens well. Mitral regurgitation is trace. There is no mitral valve stenosis. There is no evidence of mitral valve prolapse. TRICUSPID VALVE The tricuspid valve leaflets are thickened , but open well. There is mild tricuspid regurgitation.RVSP-37 mmof Hg. There is no tricuspid valve stenosis. There is no tricuspid valve prolapse or vegetation. PULMONIC VALVE The pulmonary valve is normal in structure. There is no pulmonic valvular regurgitation. There is no pulmonic valvular stenosis. GREAT VESSELS The aortic root is normal in size. The ascending aorta is normal in size. The pulmonary artery is normal. The IVC is normal in size and collapses >50% with inspiration. PERICARDIAL EFFUSION There is no pleural effusion. There is no pericardial effusion. <Conclusion> The left ventricle is normal size. There is normal left ventricular wall thickness. The left ventricular function is normal.EF-55-60% Mitral regurgitation is trace. There is mild tricuspid regurgitation.RVSP-37 mmof Hg. The IVC is normal in size and collapses >50% with inspiration. There is no pericardial effusion.
--- NOTE | 2018-10-24 16:35 | PN ---
DATE: 10/24/2018 SUBJECTIVE: The patient is a 63-year-old, seen and examined, sitting in chair. She complained of pain in the right shoulder. Just went for echocardiogram. She states that as long as she does not move, her pain is okay. PHYSICAL EXAMINATION: VITAL SIGNS: She is afebrile. Pulse 85, respiration 18 and blood pressure 97/61. LUNGS: Bilateral fair airflow. No rhonchi or crackles. HEART: S1 and S2 audible. ABDOMEN: Soft and nontender. No rebound. No guarding. NEUROLOGIC: The patient is awake, alert, able to communicate. EXTREMITIES: Right arm is in a sling. Bilateral leg, no edema. LABORATORY DATA: WBC 6.8, hemoglobin 8.1, hematocrit 27.4 and platelet 271. Chemistry: Blood sugar is 113, TSH is 0.14. ASSESSMENT: 1. Status post fall. 2. Right humeral fracture. 3. History of chronic anemia. 4. History of . PLAN: Currently, the patient is on BuSpar, citalopram, loratadine. She is on hydromorphone as needed. Continue on Duragesic patch. [facility] control. Rad Onofre MD
[2018-10-24] MEDS: Oxycodone/Acetaminophen 5/325 mg Tab PO PRN (17:46)
[2018-10-24] MEDS: Mupirocin 2% Ointment 15 GM TUBE NS SCH (18:00)
--- NOTE | 2018-10-24 19:16 | PN ---
DATE: 10/24/2018 SUBJECTIVE: A 63-year-old female in room 570, bed 1. The patient was admitted to the hospital on 10/22/2018 for minimally displaced fracture of right greater tuberosity compatible with conservative therapy in an arm sling and to sleep sitting up and no weight on that shoulder, and today being 10/24/2018, I came in to see the patient again. Status quo. No undue pain in the right shoulder. She was on the phone with her son, who the son, was recommending that she have surgery, but I told her the risk of surgery outweighs its benefit at this time, I would only operate if the fracture were to go out of place, and we could x-ray the shoulder every week or 10 days. She is due to go to TCU when we will re x-ray the arm again in a couple of days, but I told her no need for surgery at this time as the risks of surgery are hardware failure on the osteopenic bone and a high chance of the fracture displacing because the osteopenic bone would be unable to hold the hardware in place unless you put an unduly large metal plate with multiple screws, but I would leave surgery out of the picture as long as the fracture stays in good position and in 4 to 6 weeks will be healed and without a sling. As long as she behaves herself and listens to the bone fracture treatment, which is no weightbearing on that right shoulder, no range of motion of right shoulder, stay in the sling, and to sleep sitting up she should do fine. If not, then she would have to undergo ORIF with its inherent complications because of weak bone and the multiple sclerosis. Trey Sunshine DO
[2018-10-25] MEDS: Pantoprazole 40 mg EC Tab PO SCH (06:09)
[2018-10-25] MEDS: Oxycodone/Acetaminophen 5/325 mg Tab PO PRN ×2 (06:14→16:42)
--- NOTE | 2018-10-25 06:55 | CP.PCM.PN ---
Subjective - Date & Time of Evaluation Date of Evaluation: 10/25/18 Time of Evaluation: 06:25 - Subjective Subjective: No distress, Awake, lying in bed Reason for consultation and follow up: Pre-op risk stratification for possible surgery of right shoulder, post fall, History of multiple sclerosis,ascites, liver cirrhosis, gastric bypass, chronic anemia, sarcoidosis, depression, bilateral knee surgery. Seen and examined by me and Dr. Willson Objective - Vital Signs/Intake and Output Vital Signs (last 24 hours): Temp Pulse Resp BP Pulse Ox 98.3 F 95 H 20 117/75 95 10/24/18 22:50 10/24/18 22:50 10/24/18 22:50 10/24/18 22:50 10/24/18 22:50 Intake and Output: 10/24/18 10/25/18 18:59 06:59 Intake Total 450 Balance 450 - Medications Medications: Current Medications Acetaminophen (Tylenol 650mg/20.3ml Solution Ud) 650 mg PO Q6H PRN PRN Reason: Pain, Mild (1-3) Amylase (Pancrease 57687 U-5000 U-27123 U) 5,000 unit PO ACTID [facility] Last Admin: 10/24/18 17:42 Dose: 5,000 unit Buspirone HCl (Buspar) 5 mg PO BID [facility]; Protocol Last Admin: 10/24/18 17:42 Dose: 5 mg Citalopram Hydrobromide (Celexa) 20 mg PO DAILY [facility] Last Admin: 10/24/18 09:36 Dose: 20 mg Fentanyl (Duragesic) 1 patch TD Q72H [facility] Last Admin: 10/23/18 09:35 Dose: 1 patch Gabapentin (Neurontin) 300 mg PO HS [facility]; Protocol Last Admin: 10/24/18 22:00 Dose: 300 mg Hydromorphone HCl (Dilaudid) 1 mg IVP Q4H PRN PRN Reason: Pain, moderate (4-7) Last Admin: 10/23/18 19:55 Dose: 1 mg Loratadine (Claritin) 10 mg PO DAILY PRN PRN Reason: Allergy symptoms Morphine Sulfate (Morphine) 4 mg IVP Q4 PRN PRN Reason: Pain, severe (8-10) Last Admin: 10/24/18 22:02 Dose: 4 mg Mupirocin (Bactroban Ointment) 0 gm NS BID [facility] Stop: 10/29/18 10:01 Last Admin: 10/24/18 18:00 Dose: 1 applic Oxycodone/Acetaminophen (Percocet 5/325 Mg Tab) 1 tab PO Q4 PRN PRN Reason: Pain, moderate (4-7) Stop: 10/26/18 00:01 Last Admin: 10/25/18 06:14 Dose: 1 tab Pantoprazole Sodium (Protonix Ec Tab) 40 mg PO 0600 [facility] Last Admin: 10/25/18 06:09 Dose: 40 mg Polyethylene Glycol (Miralax) 17 gm PO DAILY PRN PRN Reason: Constipation Spironolactone (Aldactone) 50 mg PO DAILY [facility] Last Admin: 10/24/18 09:36 Dose: 50 mg - Labs Labs: 10/24/18 06:30 10/22/18 14:10 PT 11.8 SECONDS (9.4-12.5) 10/22/18 14:10 INR 1.06 10/22/18 14:10 APTT 27.0 Seconds (26.9-38.3) 10/22/18 14:10 - Constitutional Appears: Non-toxic, No Acute Distress - Head Exam Head Exam: NORMAL INSPECTION, NORMOCEPHALIC - Eye Exam Eye Exam: Normal appearance Pupil Exam: NORMAL ACCOMODATION - ENT Exam ENT Exam: Mucous Membranes Moist, Normal Exam - Neck Exam Neck Exam: Full ROM, Normal Inspection - Respiratory Exam Respiratory Exam: Clear to Ausculation Bilateral, NORMAL BREATHING PATTERN - Cardiovascular Exam Cardiovascular Exam: +S1, +S2 - GI/Abdominal Exam GI & Abdominal Exam: Soft, Normal Bowel Sounds - Extremities Exam Extremities Exam: Full ROM, Normal Capillary Refill Additional comments: right arm with sling - Neurological Exam Neurological Exam: Alert, Awake, Oriented x3 - Psychiatric Exam Psychiatric exam: Normal Affect, Normal Mood - Skin Skin Exam: Dry, Normal Color, Warm Assessment and Plan - Assessment and Plan (Free Text) Assessment: A 63 year old female who was brought to the ER due to right shoulder pain post fall. She was walking her dog when dog chased cat and caught off guard and causing her to fall landing on the right shoulder and right knee. Denies hitting her head but now complaining of right hip pain. History of multiple sclerosis, kidney stones post lithotrypsies, hyperthyroidism, ascites, liver cirrhosis, gastric bypass, chronic anemia, sacral decubitus, nephrolithiasis, sarcoidosis, depression,appendectomy, cholecystectomy bilateral knee surgery. Hospitalized last year 10/2017 for ascitis/liver cirrhosis and paracentesis done with 3 liters of fluid. Consult was called to clear for surgery. Right shoulder X ray done and showed right humerus minimally displaced fracture of the greater tuberosity of the proximal humerus, X-ray of the right knee: No fracture. Echo done on 04/19/17 showed Normal LV size, LVEF 50 %,Mild MR/TR, mild gloval LV hypokinesis. EKG showed NSR poor R progression V1-V4, non specific ST-T changes. Denies chest pain, denies shortness of breath. Cleared for right shoulder surgery with moderate risk if decided to go for surgery. X ray of right hip normal, no fracture, tenderness at site. .Echo done and showed LVEF 55-60%, trace MR,mild TR, RVSP 37mmHg. As per Dr. Sunshine, treat conservatively for now, no surgical intervention at this time, immobilize right shoulder. Cardiac status stable. Plan: No distress Complaints of right shoulder pain Pain management No surgical intervention of right shoulder per Dr. Sunshine Denies chest pain or shortness of breath Heart rate stable Blood pressure controlled Continue current treatment Continue current medications Fall precaution Discharge planning Will sign off and reconsult as needed Will follow up Plan and treatment discussed with Dr. Willson
[2018-10-25] MEDS: Morphine 4 mg/ml ISec IVP PRN (10:32)
[2018-10-25] MEDS: Amylase/Lipase/Protease 5,000 Units ECC PO SCH ×3 (10:33→17:55)
[2018-10-25] MEDS: Mupirocin 2% Ointment 15 GM TUBE NS SCH (10:35)
--- NOTE | 2018-10-25 11:21 | CP.PCM.PCO ---
Additional Comments - Additional Comments Additional Comments: D/W Dr. Onofre, pt is for planned R shoulder surgery on Friday 10/[address] Sunshine.
--- NOTE | 2018-10-25 12:51 | RAD ---
Date of service: 10/25/2018 PROCEDURE: Radiographs of the Right Shoulder HISTORY: increase pain rt sh fx COMPARISON: No prior. TECHNIQUE: 3 views obtained. FINDINGS: BONES: There is a comminuted impacted fracture of the humeral neck. JOINTS: There is inferior subluxation of the humeral head SOFT TISSUES: Normal. OTHER FINDINGS: None. IMPRESSION: There is a comminuted impacted fracture of the humeral neck.
--- NOTE | 2018-10-25 12:54 | PN ---
DATE: 10/25/2018 UPDATED REPORT SUBJECTIVE: A 63-year-old female in room 570, bed 1. The patient is experiencing increased pain in the right shoulder since she had to go down for procedure, they moved her shoulder inappropriately, so I am going to repeat the x-ray of right shoulder and told her there is a risk of surgery, as she is still thinking of having surgery, if the fracture is nondisplaced she should go on to heal uneventfully, but if it is out of place we will have to do internal fixations, so I will repeat the x-ray and go from there. Trey Sunshine DO
--- NOTE | 2018-10-25 13:27 | CT ---
Date of service: 10/25/2018 PROCEDURE: CT of the right shoulder HISTORY: Fracture COMPARISON: X-ray same day TECHNIQUE: Radiation dose: Total exam DLP = 409 mGy-cm. This CT exam was performed using one or more of the following dose reduction techniques: Automated exposure control, adjustment of the mA and/or kV according to patient size, and/or use of iterative reconstruction technique. FINDINGS: There is a comminuted fracture of the humeral neck and lateral aspect of the humeral head with separation of a lateral posterior fragment. The articular surface of the humeral head is otherwise intact. The acromioclavicular joint is unremarkable. IMPRESSION: Comminuted fracture of the right humeral head and neck
--- NOTE | 2018-10-25 13:54 | PN ---
DATE: 10/25/2018 SUBJECTIVE: The patient is a 63-year-old complaining of excruciating pain in her right thumb. The patient stated when she went for echo, she was worsened, then she is having lot of pain. She had repeat x-rays done, the results are pending. I spoke to Dr. Sunshine who is planning to do shoulder surgery on Tuesday. PHYSICAL EXAMINATION: GENERAL: She is awake and alert, able to communicate. VITAL SIGNS: She is afebrile, pulse 72, respirations 18, blood pressure 117/72. LUNGS: Bilateral fair airflow. No rhonchi or crackle. HEART: S1 and S2, audible. ABDOMEN: Soft and nontender. No rebound. No guarding. NEUROLOGIC: The patient is awake, alert and able to communicate. EXTREMITIES: Right arm is in the sling. LABORATORY DATA: WBC 6.8, hemoglobin 8.1, hematocrit 27.4, platelets 271. Chemistry; blood sugar is 113. ASSESSMENT: 1. Status post fall. 2. Right humerus fracture. 3. Chronic anemia. 4. History of multiple sclerosis. 5. Degenerative disk disease and generalized osteoarthritis. PLAN: She is being pressed for surgery on Tuesday. She will be reevaluated by Dr. Sunshine. Followup her CBC. If it is below 8, will be transfused tomorrow. Rad Onofre MD
--- NOTE | 2018-10-25 19:15 | PN ---
DATE: 10/25/2018 SUBJECTIVE: Followup of the x-rays that I ordered for today. X-rays of the right shoulder previously done 2 days ago showed a greater tuberosity fracture mildly displaced, but today's x-ray showed the same fracture, but with extension of the surgical neck so it is like a three-part fracture, impacted. But the patient is still having tremendous pain. She consented to ORIF of the right proximal humerus, yet to get medical clearance. So this 10/27/2018, we will do an open reduction internal fixation to stabilize the fracture with a proximal humeral plate. Since the patient understands the risks and benefits and so I will get her ready for surgery this 10/27/2018. Trey Sunshine DO
[2018-10-25] MEDS: HYDROmorphone 2 mg/ml ISec IVP PRN (21:26)
[2018-10-26] MEDS: HYDROmorphone 2 mg/ml ISec IVP PRN ×4 (03:46→20:51)
[2018-10-26 07:19] LABS: BASO # 0.03 K/mm3 (0.0-2.0); BASO % 0.4 % (0.0-3.0); EOS # 0.1 (0.0-0.7); EOS % 1.5 % (1.5-5.0); HEMOGLOBIN 7.7 g/dL (12.0-16.0); LYMPH # 1.5 (1.2-3.4); LYMPH % 20.1 % (22.0-35.0); MEAN CELL VOLUME 89.8 fl (80.0-105.0); MEAN CORPUSCULAR HGB CONC 30.1 g/dl (31.0-37.0); MEAN PLATELET VOLUME 8.8 fl (7.0-11.0); MONO # 0.7 (0.1-0.6); MONO % 9.6 % (1.0-6.0); RBC 2.85 10^6/uL (3.5-6.1); RED CELL DISTRIBUTION WIDTH 17.8 % (11.5-14.5); WHITE BLOOD COUNT 7.5 10^3/uL (4.5-11.0)
[2018-10-26 07:50] LABS: ALB/GLOB RATIO 1.1 (1.1-1.8); ALBUMIN 3.2 g/dL (3.0-4.8); ALT/SGPT 14 U/L (7-56); AST/SGOT 25 U/L (14-36); BLOOD UREA NITROGEN 25 mg/dL (7-21); GFR NON-AFRICAN AMERICAN > 60
[2018-10-26 08:59] LABS: IRON 29 ug/dL (45-180)
[2018-10-26 09:09] LABS: % IRON SATURATION 8 % (20-55); TOTAL IRON BINDING CAPACITY 365 ug/dL (265-497)
[2018-10-26] MEDS: Multivitamin Therapeutic Tab PO SCH (10:05)
[2018-10-26] MEDS: Mupirocin 2% Ointment 15 GM TUBE NS SCH ×2 (10:05→18:35)
[2018-10-26] MEDS: Amylase/Lipase/Protease 5,000 Units ECC PO SCH ×3 (10:05→18:34)
[2018-10-26] MEDS: Morphine 4 mg/ml ISec IVP PRN (11:31)
[2018-10-26] MEDS: POLYETHYLENE GLYCOL 3350 17 GM/Dose PACKET PO SCH (18:34)
--- NOTE | 2018-10-26 21:21 | PN ---
DATE: 10/26/2018 LOCATION: Room 570, bed 1. She fractured her right proximal humerus on 10/23/2018. X-rays initially showed great tuberosity fracture but CAT scan disclosed that she had an associated surgical neck fractures mixed with three-part fracture, unstable. There is some shifting of the bone since initial x-ray done. So, plan of doing an ORIF of the right shoulder with Bi[employer] proximal plate with locking screws. The patient told of the risks and benefits of the surgery and the complication, possible infection, and arthritis and hardware failure and/or redo surgery. So, the surgery is kept for 9:30 in the morning on 10/27/2018. Trey Sunshine DO
--- NOTE | 2018-10-26 21:23 | PN ---
DATE: 10/26/2018 SUBJECTIVE: The patient is a 63-year-old, seen and examined, came to emergency room after a fall, sustained injury to the right humerus. Initial plan was to await for nonsurgical union, but the patient started to have pain and a followup x-ray showed displaced fracture with internal rotation of the humeral head, it was decided to have surgical intervention done and she is being prepped for tomorrow. PHYSICAL EXAMINATION GENERAL: Today, she is awake and alert, able to communicate, complained of pain in right shoulder and arm, complained of constipation, complained of feeling nauseous at times. VITAL SIGNS: She is afebrile, pulse 80, respirations 18, blood pressure 126/62. LUNGS: Bilateral fair airflow. No rhonchi or crackle. HEART: S1, S2 audible. ABDOMEN: Soft, nontender. No rebound. No guarding. NEUROLOGIC: She is awake and alert, able to communicate. EXTREMITIES: Right arm is in the sling. LABORATORY DATA: WBC 7.5, hemoglobin 7.7, hematocrit 25.6, platelet of 285. PT 11.58, INR 1.06. Chemistry; sodium 138, potassium 4.6, chloride 107, CO2 of 25, BUN 25, creatinine 0.7, blood sugar of 100. ASSESSMENT: 1. Status post fall. 2. Right humeral fracture. 3. Constipation. 4. Symptomatic anemia. 5. History of multiple sclerosis. 6. History of depression. PLAN: The patient will receive 2 blood transfusions and will follow up CBC in a.m. The patient is scheduled to open reduction and internal fixation for right humerus in a.m. Rad Onofre MD
[2018-10-27] MEDS: HYDROmorphone 2 mg/ml ISec IVP PRN (01:21)
[2018-10-27 07:25] LABS: HEMOGLOBIN 9.3 g/dL (12.0-16.0); MEAN CELL VOLUME 89.2 fl (80.0-105.0); MEAN CORPUSCULAR HEMOGLOBIN 27.1 pg (25.0-35.0); MEAN CORPUSCULAR HGB CONC 30.4 g/dl (31.0-37.0); MEAN PLATELET VOLUME 8.7 fl (7.0-11.0); RBC 3.43 10^6/uL (3.5-6.1); RED CELL DISTRIBUTION WIDTH 16.7 % (11.5-14.5); WHITE BLOOD COUNT 5.9 10^3/uL (4.5-11.0)
[2018-10-27] MEDS: Amylase/Lipase/Protease 5,000 Units ECC PO SCH ×3 (08:27→17:29)
[2018-10-27] MEDS: Pantoprazole 40 mg EC Tab PO SCH (08:27)
[2018-10-27] MEDS: Multivitamin Therapeutic Tab PO SCH (08:27)
[2018-10-27 08:32] LABS: INR 1.09; PARTIAL THROMBOPLASTIN TIME 24.2 Seconds (26.9-38.3); PROTHROMBIN TIME 12.3 SECONDS (9.4-12.5)
[2018-10-27 08:41] LABS: ALB/GLOB RATIO 1.1 (1.1-1.8); ALT/SGPT 17 U/L (7-56); AST/SGOT 23 U/L (14-36); BLOOD UREA NITROGEN 17 mg/dL (7-21); CALCIUM 8.2 mg/dL (8.4-10.5); GFR NON-AFRICAN AMERICAN > 60
[2018-10-27] MEDS ORDERED: Bupivacaine 0.5% 50 ML IJ ONE ×3 (08:56→13:44)
[2018-10-27] MEDS ORDERED: Lidocaine 1% w Epi 1:100,000 Inj ONE (09:46)
[2018-10-27] MEDS ORDERED: Propofol 10 mg/ml Inj (20 ML) ONE (09:49)
[2018-10-27] MEDS ORDERED: Midazolam 2 MG/2 ML VIAL ONE (09:49)
[2018-10-27] MEDS ORDERED: Succinylcholine 200 mg/10 ml Inj IV ONE (09:51)
[2018-10-27] MEDS ORDERED: Vancomycin 1 g Inj ONE (10:02)
[2018-10-27] MEDS ORDERED: Lidocaine 1%/Epinephrine 1:100000 30 ml vial IJ ONE (10:15)
[2018-10-27] MEDS ORDERED: Phenylephrine 10 mg/ml Inj ONE (10:16)
[2018-10-27] MEDS: POLYETHYLENE GLYCOL 3350 17 GM/Dose PACKET PO SCH ×3 (12:04→19:29)
[2018-10-27] MEDS: Mupirocin 2% Ointment 15 GM TUBE NS SCH ×2 (12:04→17:30)
--- NOTE | 2018-10-27 13:43 | RAD ---
Date of service: 10/27/2018 PROCEDURE: Fluoroscopy up to 1 hr HISTORY: ORIF RT HUMERUS COMPARISON: TECHNIQUE: 173.9 sec of fluoro time. Cumulative dose 8.93 mGy. Two images were submitted FINDINGS: The study shows a plate and multiple screws in the right proximal humerus. There is anatomic alignment IMPRESSION: As above
[2018-10-27] MEDS ORDERED: Lactated Ringer's 1,000 ML IV SCH (14:15)
--- NOTE | 2018-10-27 14:27 | PCM.ANESB1 ---
Interscalene Block - Brachial Plexus Date of Procedure: 10/27/18 Anesthesiologist: lulú Pre-Procedure Diagnosis: right humerus fx s/p orif Post-Procedure Diagnosis: s/p orif right humerus fx Procedure Performed: Interscalene Block of Brachial Plexus Right - Procedure Interscalene Block of Brachial Plexus: This procedure was explained to the patient that it is for post-operative pain management. Consent was obtained after a thorough discussion with the patient regarding the benefits and possible complications of local anesthetic block of the Brachial Plexus at the Interscalene area. The patient was brought to the Operating Room and standard monitors were applied. Time out was held with the circulating nurse to confirm the correct surgery and appropriate block. After applying Oxygen by nasal cannula and administering IV Sedation, the patient's head was gently rotated away from the operative shoulder and the anterior scalene groove was carefully palpated. The ultrasound transducer was then applied to the skin in the transverse plane and the brachial plexus was visualized lateral to the carotid artery and in between the anterior and middle scalene muscles. After identification,the anterior lateral portion of the neck was prepped with Betadine solution three times and Lidocaine 1% was injected subcutaneously for topical analgesia. At this point, a # 22 gauge Stimuplex 2 inches insulated needle was inserted into the interscalene groove and directed in a caudal and midline direction. The needle was inserted lateral to the ultrasound transducer in-plane towards the brachial plexus in a [id number] direction. Needle advancement was performed carefully under direct ultrasound visualization. Nerve stimulator was used and twitched of the affected extremity including the hand brachialis muscles, biceps and the deltoid was obtained at a current of MA. After repeated negative aspiration,__5___cc of__0.5%___,__bupivacaine were injected and this was followed with __25___cc of _0.5____% __bupivacaine . Under ultrasound guidance the local anesthetics were observed surrounding the roots of the brachial plexus. The needle was removed intact and sterile dressing was applied. The patient had stable vital signs, was conscious and in no apparent distress. The patient tolerated the interscalene block of the bracheal plexus well with stable vital signs and was prepared for subsequent surgery.
[2018-10-27] MEDS ORDERED: HYDROmorphone 0.5 mg/0.5 ml ISec IVP PRN (14:33)
[2018-10-27] MEDS ORDERED: HYDROmorphone 0.5 mg/0.5 ml ISec IVP ONE ×2 (14:43→14:58)
[2018-10-27] MEDS ORDERED: HYDROmorphone 0.5 mg/0.5 ml ISec ONE ×2 (14:44→14:54)
--- NOTE | 2018-10-27 17:09 | RAD ---
Date of service: 10/27/2018 PROCEDURE: Radiographs of the Right Shoulder single view. HISTORY: POST OP COMPARISON: October 26, 2018. Right shoulder preoperative examination TECHNIQUE: 3 views obtained. FINDINGS: BONES: Satisfactory postoperative status following open reduction internal fixation proximal right humeral fracture. Redemonstration of avulsion of the greater tuberosity. JOINTS: Normal. Glenohumeral and acromioclavicular joints preserved. No osteoarthritis. SOFT TISSUES: Normal. OTHER FINDINGS: None. IMPRESSION: Satisfactory postoperative status.
[2018-10-27] MEDS: Clindamycin 600mg/50ml D5W 600 MG/50 ML VIAL IVPB SCH (17:30)
--- NOTE | 2018-10-27 19:47 | PN ---
DATE: 10/27/2018 SUBJECTIVE: The patient is 63 years old, seen and examined. Status post right humerus open reduction internal fixation. PHYSICAL EXAMINATION: VITAL SIGNS: She is afebrile. Pulse 93, respiration 20 and blood pressure 112/68. LUNGS: Bilateral airflow. No rhonchi or crackle. HEART: S1 and S2, audible. ABDOMEN: Soft and nontender. No rebound. No guarding. NEUROLOGIC: The patient is a little bit arousable. LABORATORY DATA: WBC 5.9, hemoglobin 9.3, hematocrit 30.6 and platelets 253. Chemistry; sodium 138, potassium 4.5, chloride 105, CO2 of 24, BUN 17, creatinine 0.6 and blood sugar of 86. ASSESSMENT: 1. Status post fall and right humerus fracture, status post open reduction internal fixation. 2. History of multiple sclerosis. 3. Chronic anemia. 4. History of hypotension. 5. History of sarcoidosis. PLAN: We will follow up her CBC, CMP in a.m. In case she needs a blood transfusion, analgesic as needed. We will give her incentive spirometry. Continue her usual medication that include BuSpar and citalopram. She is on DVT prophylaxis. We will follow up the patient in the a.m. Rad Onofre MD
--- NOTE | 2018-10-27 21:39 | PN ---
DATE: 10/27/2018 LOCATION: The patient is in room 570, bed 1. REASON FOR CONSULTATION: Postop risk stratification for surgery for the right shoulder post fall, history of multiple sclerosis, cirrhosis of the liver, gastric bypass, chronic anemia, sarcoidosis, depression, bilateral knee surgery. SUBJECTIVE: The patient had shoulder surgery today and is sitting comfortably in bed without cardiac symptoms like chest pain, shortness of breath, or palpitation. PHYSICAL EXAMINATION VITAL SIGNS: Blood pressure 112/68, respiration 20, pulse is about 110 per minute, regular. HEENT: Head is normocephalic. Eyes; pupils are normal. Conjunctiva slightly pale. NECK: JVP low, carotid equal. Thorax AP diameter normal. CARDIOVASCULAR: S1, S2. LUNGS: Clear. ABDOMEN: Soft. No tenderness. No organomegaly. Bowel sounds normal. EXTREMITIES: No clubbing, no cyanosis. LABORATORY DATA: WBC 5.9, hemoglobin 9.3, hematocrit 30.6, platelet 253. Sodium 138, potassium 4.5, BUN 17, creatinine 0.6, calcium 8.2, phosphorus 2.9, magnesium 2.1, TSH 0.14, which is low. DIAGNOSES: Status post surgery right shoulder, sinus tachycardia, anemia, multiple sclerosis, hyperthyroidism, ascites, liver cirrhosis, gastric bypass, chronic anemia, sinus tachycardia probably on the basis of anemia and surgery as the underlying conditions. PLAN: The patient is getting spironolactone 50 mg p.o. daily, BuSpar 5 mg b.i.d., Celexa 20 mg daily, salicylate 324 mg p.o. t.i.d., Neurontin 300 mg p.o. at bedtime, Protonix 40 mg daily. We will give atenolol 12.5 mg p.o. stat and then 12.5 mg p.o. daily to control her heart rate. We will repeat the TSH and the T3 and free T4 in the morning along with other blood work. We will follow with you. Kami Marcus MD
[2018-10-27] MEDS: HYDROmorphone 0.5 mg/0.5 ml ISec SC PRN (22:11)
--- NOTE | 2018-10-28 01:41 | OP ---
PROCEDURE DATE: 10/27/2018 PREOPERATIVE DIAGNOSES: A 63-year-old female with osteoporosis and a comminuted three-part fracture of the right proximal humerus involving the greater tuberosity in the humeral head with comminution. POSTOPERATIVE DIAGNOSES: A 63-year-old female with osteoporosis and a comminuted three-part fracture of the right proximal humerus involving the greater tuberosity in the humeral head with comminution plus bicipital tendinitis. ANESTHESIA: General endotracheal tube. DESCRIPTION OF PROCEDURE: The patient was placed on a beach chair position and x-rays of this shoulder showed that we could do good visualization of the shoulder with a C-arm. Then, we put the patient to sleep and prepped and draped the shoulder and infiltrated the incision with lidocaine and epinephrine. This was to decrease the bleeding and we made the incision just lateral to the coracoid process distally for about 6 inches in line with the humeral shaft starting at the clavicle. Deep knife was used to go through the subcutaneous tissue. The deltopectoral groove was identified. We then stayed with the deltoid. We went down to the clavipectoral fascia, opened up the fracture and right away controlled the rotator cuff that was attached to the greater tuberosity with supraspinatus. Plan to attach that to the plate once we got it on. Once we visualized the fracture down to tuberosity and humeral head, we further reduced it without further rotation and traction of the rotator cuff and put the plate just lateral to the biceps tendon which was frayed from tendinosis. We detached it from the superior limb of the glenoid and attached it to the pectoralis major muscle to do a tenodesis. Once we cleaned out the fracture debris, exposed the distal and partial part of the fracture, we were to put the plate just lateral to the biceps tendon starting with the first pin into the humeral head and has to be in the center and the plate we used was a low bent plate with six screws in the humeral head and three in the shaft. Once we attached the shaft to the humeral head, we secured the plate with a non-locking screw humerus to bring the plate down to the bone. We put in total six locking screws in the humerus and three non-locking screws in the shaft. X-rays showed good position of the fracture. The patient was placed with a Hemovac and closed the wound in layers starting with 0 Vicryl for the deep layer,2-0 Vicryl subcutaneous tissue, and skin with 2-0 nylon interrupted. The patient was taken to the recovery room in good condition with a well-fitted shoulder immobilizer. Trey Sunshine DO
[2018-10-28] MEDS: Clindamycin 600mg/50ml D5W 600 MG/50 ML VIAL IVPB SCH (02:01)
[2018-10-28] MEDS: HYDROmorphone 0.5 mg/0.5 ml ISec SC PRN ×5 (02:44→21:13)
[2018-10-28] MEDS: Pantoprazole 40 mg EC Tab PO SCH (05:05)
[2018-10-28] MEDS: Morphine 4 mg/ml ISec IVP PRN ×3 (05:06→14:39)
[2018-10-28 07:32] LABS: BASO # 0.03 K/mm3 (0.0-2.0); BASO % 0.3 % (0.0-3.0); EOS % 0.2 % (1.5-5.0); HEMOGLOBIN 7.7 g/dL (12.0-16.0); LYMPH # 1.2 (1.2-3.4); LYMPH % 13.8 % (22.0-35.0); MEAN CELL VOLUME 90.1 fl (80.0-105.0); MEAN CORPUSCULAR HEMOGLOBIN 27.3 pg (25.0-35.0); MEAN CORPUSCULAR HGB CONC 30.3 g/dl (31.0-37.0); MEAN PLATELET VOLUME 8.9 fl (7.0-11.0); MONO # 1.2 (0.1-0.6); RBC 2.82 10^6/uL (3.5-6.1); WHITE BLOOD COUNT 8.9 10^3/uL (4.5-11.0)
[2018-10-28 07:51] LABS: BLOOD UREA NITROGEN 18 mg/dL (7-21); CALCIUM 7.2 mg/dL (8.4-10.5); GFR NON-AFRICAN AMERICAN > 60
[2018-10-28 08:12] LABS: FREE T4 1.09 ng/dL (0.78-2.19)
[2018-10-28] MEDS: Enoxaparin 30 mg Syringe SC SCH (09:29)
[2018-10-28] MEDS: POLYETHYLENE GLYCOL 3350 17 GM/Dose PACKET PO SCH ×2 (09:30→17:15)
[2018-10-28] MEDS: Amylase/Lipase/Protease 5,000 Units ECC PO SCH ×3 (09:30→17:14)
[2018-10-28] MEDS: Multivitamin Therapeutic Tab PO SCH (09:30)
[2018-10-28] MEDS: Mupirocin 2% Ointment 15 GM TUBE NS SCH ×2 (09:32→17:15)
--- NOTE | 2018-10-28 14:25 | CP.PCM.PN ---
Subjective - Date & Time of Evaluation Date of Evaluation: 10/28/18 Time of Evaluation: 08:30 - Subjective Subjective: No distress, Awake, lying in bed Reason for consultation and follow up: Post op follow up of surgery of right shoulder ORIF, post fall, History of multiple sclerosis,ascites, liver cirrhosis, gastric bypass, chronic anemia, sarcoidosis, depression, bilateral knee surgery. Seen and examined by me and Dr. Marcus Objective - Vital Signs/Intake and Output Vital Signs (last 24 hours): Temp Pulse Resp BP Pulse Ox 98.7 F 85 16 102/61 94 L 10/28/18 13:32 10/28/18 13:32 10/28/18 13:32 10/28/18 13:32 10/28/18 06:00 Intake and Output: 10/28/18 10/28/18 06:59 18:59 Intake Total 360 370 Balance 360 370 - Medications Medications: Current Medications Acetaminophen (Tylenol 325mg Tab) 650 mg PO Q6H PRN PRN Reason: Pain, Mild (1-3) Last Admin: 10/28/18 12:57 Dose: 650 mg Amylase (Pancrease [id number] U) 5,000 unit PO ACTID [facility] Last Admin: 10/28/18 11:48 Dose: Not Given Atenolol (Tenormin) 12.5 mg PO DAILY [facility] Last Admin: 10/28/18 09:32 Dose: 12.5 mg Buspirone HCl (Buspar) 5 mg PO BID [facility]; Protocol Last Admin: 10/28/18 09:30 Dose: 5 mg Citalopram Hydrobromide (Celexa) 20 mg PO DAILY [facility] Last Admin: 10/28/18 09:30 Dose: 20 mg Enoxaparin Sodium (Lovenox) 30 mg SC DAILY [facility]; Protocol Last Admin: 10/28/18 09:29 Dose: 30 mg Ferrous Sulfate (Feosol) 324 mg PO TID [facility] Last Admin: 10/28/18 09:30 Dose: 324 mg Furosemide (Lasix) 40 mg IVP DAILY [facility] Gabapentin (Neurontin) 300 mg PO HS [facility]; Protocol Last Admin: 10/27/18 21:50 Dose: 300 mg Hydromorphone HCl (Dilaudid) 0.5 mg SC Q4H PRN PRN Reason: Pain, severe (8-10) Last Admin: 10/28/18 11:48 Dose: 0.5 mg Hydromorphone HCl (Dilaudid) 0.5 mg IVP Q15M PRN PRN Reason: Pain, Moderate/Severe (4-10) Ketorolac Tromethamine (Toradol) 15 mg IM Q6 [facility] Stop: 11/01/18 14:18 Last Admin: 10/28/18 12:57 Dose: Not Given Loratadine (Claritin) 10 mg PO DAILY PRN PRN Reason: Allergy symptoms Morphine Sulfate (Morphine) 4 mg IVP Q4 PRN PRN Reason: Pain, severe (8-10) Last Admin: 10/28/18 09:30 Dose: 4 mg Multivitamins (Thera Tab) 1 tab PO 0800 [facility] Last Admin: 10/28/18 09:30 Dose: 1 tab Mupirocin (Bactroban Ointment) 0 gm NS BID [facility] Stop: 10/29/18 10:01 Last Admin: 10/28/18 09:32 Dose: 1 applic Ondansetron HCl (Zofran Inj) 4 mg IVP Q6H PRN PRN Reason: Nausea/Vomiting Last Admin: 10/28/18 09:30 Dose: 4 mg Ondansetron HCl (Zofran Inj) 4 mg IVP ONCE PRN PRN Reason: Nausea/Vomiting Pantoprazole Sodium (Protonix Ec Tab) 40 mg PO 0600 [facility] Last Admin: 10/28/18 05:05 Dose: 40 mg Polyethylene Glycol (Miralax) 17 gm PO BID [facility] Last Admin: 10/28/18 09:30 Dose: 17 gm Spironolactone (Aldactone) 50 mg PO DAILY [facility] Last Admin: 10/28/18 09:31 Dose: 50 mg - Labs Labs: 10/28/18 07:00 10/28/18 07:00 PT 12.3 SECONDS (9.4-12.5) 10/27/18 08:00 INR 1.09 10/27/18 08:00 APTT 24.2 Seconds (26.9-38.3) L 10/27/18 08:00 - Constitutional Appears: Non-toxic, No Acute Distress - Head Exam Head Exam: NORMAL INSPECTION, NORMOCEPHALIC - Eye Exam Eye Exam: Normal appearance Pupil Exam: NORMAL ACCOMODATION - ENT Exam ENT Exam: Mucous Membranes Moist, Normal Exam - Respiratory Exam Respiratory Exam: Decreased Breath Sounds, Clear to Ausculation Bilateral, NORMAL BREATHING PATTERN - Cardiovascular Exam Cardiovascular Exam: +S1, +S2 - GI/Abdominal Exam GI & Abdominal Exam: Soft, Normal Bowel Sounds - Extremities Exam Additional comments: right arm sling - Neurological Exam Neurological Exam: Alert, Awake, Oriented x3 - Psychiatric Exam Psychiatric exam: Normal Affect, Normal Mood - Skin Skin Exam: Dry, Normal Color, Warm Assessment and Plan - Assessment and Plan (Free Text) Assessment: A 63 year old female who was brought to the ER due to right shoulder pain post fall. She was walking her dog when dog chased cat and caught off guard and causing her to fall landing on the right shoulder and right knee. Denies hitting her head but now complaining of right hip pain. History of multiple sclerosis, kidney stones post lithotrypsies, hyperthyroidism, ascites, liver cirrhosis, gastric bypass, chronic anemia, sacral decubitus, nephrolithiasis, sarcoidosis, depression,appendectomy, cholecystectomy bilateral knee surgery. Hospitalized last year 10/2017 for ascitis/liver cirrhosis and paracentesis done with 3 liters of fluid. Consult was called to clear for surgery. Right shoulder X ray done and showed right humerus minimally displaced fracture of the greater tuberosity of the proximal humerus, X-ray of the right knee: No fracture. Echo done on 04/19/17 showed Normal LV size, LVEF 50 %,Mild MR/TR, mild gloval LV hypokinesis. EKG showed NSR poor R progression V1-V4, non specific ST-T changes. Denies chest pain, denies shortness of breath. X ray of right hip normal, no fracture, tenderness at site. .Echo done and showed LVEF 55-60%, trace MR,mild TR, RVSP 37mmHg. Status post right ORIF of humerus shoulder POD # 1. Cardiac status stable. Pain management. Plan: Status post right ORIF of humerus shoulder POD # 1. Cardiac status stable. Pain management Denies chest pain or shortness of breath Heart rate stable, 80's Blood pressure controlled On Tenormin 12.5 mg daily, Lasix 40 mg daily,Aldactone 50 mg daily Continue current treatment Continue current medications Fall precaution Will follow up Plan and treatment discussed with Dr. Marcus
--- NOTE | 2018-10-28 14:41 | PN ---
DATE: 10/28/2018 SUBJECTIVE: The patient is 63 years old. Seen and examined. Complained of intractable pain in the right surgical site. Eating and tolerating. PHYSICAL EXAMINATION: VITAL SIGNS: She has temperature of 100.3, pulse 116, respirations 19, blood pressure 96/51. LUNGS: Bilateral fair airflow. No rhonchi or crackle. HEART: S1, S2 audible. ABDOMEN: Soft, nontender. No rebound. No guarding. NEUROLOGIC: The patient is awake and alert. Able to communicate. LABORATORY DATA: Sodium 136, potassium 4.5, chloride 107, CO2 is 23, BUN 18, creatinine 0.7, blood sugar 131. WBC 8.9, hemoglobin 7.7, hematocrit 25.4, platelet 291. ASSESSMENT: 1. Right humerus fracture, status post open reduction internal fixation. 2. Symptomatic anemia. 3. History of multiple sclerosis. 4. History of sarcoidosis. PLAN: So plan is, we will transfuse 2 packs of RBC. We will give her Lasix in between. Analgesic as needed. She is on DVT prophylaxis. She is on her usual medication. We will follow up with the patient in the a.m. We will follow up CBC and CMP. Rad Onofre MD
--- NOTE | 2018-10-28 23:45 | PN ---
DATE: 10/28/2018 FIRST DAY POSTOPERATIVE REPORT SUBJECTIVE: A 63-year-old female in room 570, bed 1. The patient underwent extensive surgery to stabilize the comminuted fracture of the right proximal humerus. It is approximately 08:30 in the morning, waiting for the CBC to come back, and she has no undue pain. The plate is holding the fracture together at the surgical neck of the humerus. One of the screws that were used to hold the greater tuberosity did come off and migrated because of the extensive osteoporosis, but the fracture itself is in good position, and I had used surgery to bring back the rotator cuff to the plate, so that hopefully that will hold, and she would not need any revision surgery, but otherwise, she feels better. She is told to stay in the sling until the fracture consolidates and gets early callus in 2-3 weeks. Put no weight on this shoulder sitting up and no range of motion. I am going to follow her in the rehab hospital and get periodic x-rays of the right shoulder. Trey Sunshine DO
[2018-10-29] MEDS: HYDROmorphone 0.5 mg/0.5 ml ISec IVP PRN ×5 (04:51→21:06)
[2018-10-29 07:45] LABS: BASO # 0.03 K/mm3 (0.0-2.0); BASO % 0.3 % (0.0-3.0); EOS # 0.1 (0.0-0.7); EOS % 1.6 % (1.5-5.0); HEMOGLOBIN 9.1 g/dL (12.0-16.0); LYMPH # 1.3 (1.2-3.4); LYMPH % 15.2 % (22.0-35.0); MEAN CORPUSCULAR HEMOGLOBIN 27.4 pg (25.0-35.0); MEAN CORPUSCULAR HGB CONC 31.2 g/dl (31.0-37.0); MEAN PLATELET VOLUME 9.1 fl (7.0-11.0); MONO % 11.3 % (1.0-6.0); RBC 3.32 10^6/uL (3.5-6.1); RED CELL DISTRIBUTION WIDTH 17.9 % (11.5-14.5); WHITE BLOOD COUNT 8.8 10^3/uL (4.5-11.0)
[2018-10-29 08:20] LABS: ALB/GLOB RATIO 0.9 (1.1-1.8); ALBUMIN 2.6 g/dL (3.0-4.8); ALT/SGPT 17 U/L (7-56); AST/SGOT 34 U/L (14-36); BLOOD UREA NITROGEN 21 mg/dL (7-21); CALCIUM 7.6 mg/dL (8.4-10.5); GFR NON-AFRICAN AMERICAN 56
--- NOTE | 2018-10-29 08:38 | CP.PCM.PN ---
Subjective - Date & Time of Evaluation Date of Evaluation: 10/29/18 Time of Evaluation: 07:00 - Subjective Subjective: No distress, Awake, lying in bed, right shoulder pain Reason for consultation and follow up: Post op follow up of surgery of right sh oulder ORIF, post fall, History of multiple sclerosis,ascites, liver cirrhosis, gastric bypass, chronic anemia, sarcoidosis, depression, bilateral knee surgery. Seen and examined by me and Dr. Marcus Objective - Vital Signs/Intake and Output Vital Signs (last 24 hours): Temp Pulse Resp BP Pulse Ox 98.5 F 75 20 108/66 95 10/29/18 07:30 10/29/18 07:30 10/29/18 07:30 10/29/18 07:30 10/29/18 07:30 Intake and Output: 10/29/18 10/29/18 06:59 18:59 Intake Total 351 Balance 351 - Medications Medications: Current Medications Acetaminophen (Tylenol 325mg Tab) 650 mg PO Q6H PRN PRN Reason: Pain, Mild (1-3) Last Admin: 10/28/18 12:57 Dose: 650 mg Amylase (Pancrease 66762 U-5000 [id number] U) 5,000 unit PO ACTID [facility] Last Admin: 10/28/18 17:14 Dose: 5,000 unit Atenolol (Tenormin) 12.5 mg PO DAILY [facility] Last Admin: 10/28/18 09:32 Dose: 12.5 mg Buspirone HCl (Buspar) 5 mg PO BID [facility] [place]; Protocol Last Admin: 10/28/18 17:14 Dose: 5 mg Citalopram Hydrobromide (Celexa) 20 mg PO DAILY [facility] Last Admin: 10/28/18 09:30 Dose: 20 mg Enoxaparin Sodium (Lovenox) 30 mg SC DAILY [facility]; Protocol Last Admin: 10/28/18 09:29 Dose: 30 mg Ferrous Sulfate (Feosol) 324 mg PO TID [facility] [place] Last Admin: 10/28/18 17:14 Dose: 324 mg Furosemide (Lasix) 40 mg IVP DAILY [facility] [place] Last Admin: 10/28/18 12:00 Dose: Not Given Gabapentin (Neurontin) 300 mg PO HS [facility] [place]; Protocol Last Admin: 10/28/18 21:14 Dose: 300 mg Hydromorphone HCl (Dilaudid) 0.5 mg IVP Q4H PRN PRN Reason: Pain, severe (8-10) Last Admin: 10/29/18 04:51 Dose: 0.5 mg Ketorolac Tromethamine (Toradol) 15 mg IVP Q6H [facility] [place] Last Admin: 10/29/18 06:23 Dose: 15 mg Loratadine (Claritin) 10 mg PO DAILY PRN PRN Reason: Allergy symptoms Morphine Sulfate (Morphine) 4 mg IVP Q4 PRN PRN Reason: Pain, severe (8-10) Last Admin: 10/28/18 14:39 Dose: 4 mg Multivitamins (Thera Tab) 1 tab PO 0800 [facility] [place] Last Admin: 10/28/18 09:30 Dose: 1 tab Mupirocin (Bactroban Ointment) 0 gm NS BID [facility] [place] Stop: 10/29/18 10:01 Last Admin: 10/28/18 17:15 Dose: 1 applic Ondansetron HCl (Zofran Inj) 4 mg IVP Q6H PRN PRN Reason: Nausea/Vomiting Last Admin: 10/28/18 09:30 Dose: 4 mg Ondansetron HCl (Zofran Inj) 4 mg IVP ONCE PRN PRN Reason: Nausea/Vomiting Pantoprazole Sodium (Protonix Ec Tab) 40 mg PO 0600 [facility] [place] Last Admin: 10/28/18 05:05 Dose: 40 mg Polyethylene Glycol (Miralax) 17 gm PO BID [facility] [place] Last Admin: 10/28/18 17:15 Dose: Not Given Spironolactone (Aldactone) 50 mg PO DAILY [facility] [place] Last Admin: 10/28/18 09:31 Dose: 50 mg - Labs Labs: 10/29/18 06:30 10/29/18 06:30 PT 12.3 SECONDS (9.4-12.5) 10/27/18 08:00 INR 1.09 10/27/18 08:00 APTT 24.2 Seconds (26.9-38.3) L 10/27/18 08:00 - Constitutional Appears: Non-toxic, No Acute Distress - Head Exam Head Exam: NORMAL INSPECTION, NORMOCEPHALIC - Eye Exam Eye Exam: Normal appearance Pupil Exam: NORMAL ACCOMODATION - ENT Exam ENT Exam: Mucous Membranes Moist, Normal Exam - Respiratory Exam Respiratory Exam: Decreased Breath Sounds, Clear to Ausculation Bilateral, NORMAL BREATHING PATTERN - Cardiovascular Exam Cardiovascular Exam: +S1, +S2 - GI/Abdominal Exam GI & Abdominal Exam: Soft, Normal Bowel Sounds - Extremities Exam Additional comments: right arm sling - Neurological Exam Neurological Exam: Alert, Awake, Oriented x3 - Psychiatric Exam Psychiatric exam: Normal Affect, Normal Mood - Skin Skin Exam: Dry, Normal Color, Warm Assessment and Plan - Assessment and Plan (Free Text) Assessment: A 63 year old female who was brought to the ER due to right shoulder pain post fall. She was walking her dog when dog chased cat and caught off guard and causing her to fall landing on the right shoulder and right knee. Denies hitting her head but now complaining of right hip pain. History of multiple sclerosis, kidney stones post lithotrypsies, hyperthyroidism, ascites, liver cirrhosis, gastric bypass, chronic anemia, sacral decubitus, nephrolithiasis, sarcoidosis, depression,appendectomy, cholecystectomy bilateral knee surgery. [place] 10/2017 for ascitis/liver cirrhosis and paracentesis done with 3 liters of fluid. Consult was called to clear for surgery. Right shoulder X ray done and showed right humerus minimally displaced fracture of the greater tuberosity of the proximal humerus, X-ray of the right knee: No fracture. Echo done on 04/19/17 showed Normal LV size, LVEF 50 %,Mild MR/TR, mild gloval LV hypokinesis. EKG showed NSR poor R progression V1-V4, non specific ST-T changes. Denies chest pain, denies shortness of breath. X ray of right hip normal, no fracture, tenderness at site. .Echo done and showed LVEF 55-60%, trace MR,mild TR, RVSP 37mmHg. Cardiac status stable. Pain management. Status post right ORIF of humerus shoulder POD # 2. Post transfusion of 2 units PRBC for low H/H, Physical therapy. Discharge planning. Plan: Feels okay, right shoulder surgical pain Post transfusion of 2 units PRBC for low H/H H/H today 9.1/29.2, stable Status post right ORIF of humerus shoulder POD # 2 Pain management, PRN Dilaudid Cardiac status stable. Pain management Denies chest pain or shortness of breath Heart rate stable Blood pressure controlled On Tenormin 12.5 mg daily, Lasix 40 mg daily, Aldactone 50 mg daily Continue current treatment Continue current medications Fall precaution Physical therapy Discharge planning Will follow up Plan and treatment discussed with Dr. Marcus
[2018-10-29] MEDS: Amylase/Lipase/Protease 5,000 Units ECC PO SCH ×3 (09:18→17:13)
[2018-10-29] MEDS: Multivitamin Therapeutic Tab PO SCH (09:18)
[2018-10-29] MEDS: Enoxaparin 30 mg Syringe SC SCH (09:20)
[2018-10-29] MEDS: Mupirocin 2% Ointment 15 GM TUBE NS SCH (09:20)
[2018-10-29] MEDS: POLYETHYLENE GLYCOL 3350 17 GM/Dose PACKET PO SCH ×2 (09:21→17:12)
[2018-10-29] MEDS: Pantoprazole 40 mg EC Tab PO SCH (09:21)
--- NOTE | 2018-10-29 11:20 | PN ---
DATE: 10/29/2018 FOLLOWUP REPORT LOCATION: Room 570, bed 2. SUBJECTIVE: She underwent ORIF of her comminuted proximal right humerus fracture and is doing well. LABORATORY DATA: Her hemoglobin is 9.1 and hematocrit 29 after two units of blood postop. ASSESSMENT AND PLAN: We are going to get her out of bed today and ambulate with a cane in the left hand. The wound is dry and I think she should have the sutures in about two weeks. I believe she could go home when medically stable or she may go to [facility] depending on the director social welfare evaluation. Trey Sunshine DO MTDD
--- NOTE | 2018-10-30 00:05 | PN ---
DATE: 10/29/2018 SUBJECTIVE: The patient is a 63-year-old, seen and examined, sitting in a chair, seems to be comfortable. She only has pain in the right shoulder when she moves a little bit. She is eating and tolerating, had bowel movements. PHYSICAL EXAMINATION: VITAL SIGNS: She is afebrile, pulse 75, respirations 18, and blood pressure 91/65. LUNGS: Bilateral fair airflow. No rhonchi or crackles. HEART: S1 and S2 audible. ABDOMEN: Soft and nontender. No rebound, no guarding. NEUROLOGIC: She is awake and alert, able to communicate. EXTREMITIES: Right arm is in the sling. Bilateral legs, no edema. LABORATORY DATA: WBC 8.8, hemoglobin 9.1, hematocrit 29.2, and platelets 262. Chemistry showed sodium 138, potassium 4.2, chloride 110, CO2 of 24, BUN 21, creatinine 1, and blood sugar of 108. Alkaline phosphatase is 232. ASSESSMENT: 1. Status post fall. 2. Status post right humerus fracture, status post open reduction and internal fixation. 3. Acute on chronic anemia, requiring blood transfusion. 4. Electrolyte imbalance. 5. History of multiple sclerosis. PLAN: We will continue the patient on current medications and analgesics. TCU evaluation has been requested and if accepted, the patient can be transferred to TCU. Rad Onofre MD
[2018-10-30] MEDS: HYDROmorphone 0.5 mg/0.5 ml ISec IVP PRN ×4 (01:00→14:04)
[2018-10-30] MEDS: Morphine 4 mg/ml ISec IVP PRN ×2 (02:15→08:18)
[2018-10-30] MEDS: Pantoprazole 40 mg EC Tab PO SCH (05:01)
[2018-10-30] MEDS ORDERED: HYDROmorphone 1 mg/ml ISec IVP STA (06:28)
--- NOTE | 2018-10-30 07:10 | CP.PCM.PN ---
Subjective - Date & Time of Evaluation Date of Evaluation: 10/30/18 Time of Evaluation: 06:30 - Subjective Subjective: Severe right shoulder pain, No distress, Awake, lying in bed Reason for consultation and follow up: Post op follow up of surgery of right shoulder ORIF, post fall, History of multiple sclerosis,ascites, liver cirrhosis, gastric bypass, chronic anemia, sarcoidosis, depression, bilateral knee surgery. Seen and examined by me and Dr. Willson Objective - Vital Signs/Intake and Output Vital Signs (last 24 hours): Temp Pulse Resp BP Pulse Ox 99.1 F 72 19 92/54 L 97 10/29/18 23:11 10/29/18 23:11 10/29/18 23:11 10/29/18 23:11 10/29/18 23:11 - Medications Medications: Current Medications Acetaminophen (Tylenol 325mg Tab) 650 mg PO Q6H PRN PRN Reason: Pain, Mild (1-3) Last Admin: 10/29/18 11:45 Dose: 650 mg Amylase (Pancrease 94492 U-5000 U-58863 U) 5,000 unit PO ACTID [facility] Last Admin: 10/29/18 17:13 Dose: 5,000 unit Atenolol (Tenormin) 12.5 mg PO DAILY [facility] Last Admin: 10/29/18 09:19 Dose: 12.5 mg Buspirone HCl (Buspar) 5 mg PO BID [facility]; Protocol Last Admin: 10/29/18 17:13 Dose: 5 mg Citalopram Hydrobromide (Celexa) 20 mg PO DAILY [facility] Last Admin: 10/29/18 09:19 Dose: 20 mg Enoxaparin Sodium (Lovenox) 30 mg SC DAILY [facility]; Protocol Last Admin: 10/29/18 09:20 Dose: 30 mg Ferrous Sulfate (Feosol) 324 mg PO TID [facility] Last Admin: 10/29/18 17:13 Dose: 324 mg Furosemide (Lasix) 40 mg IVP DAILY [facility] Last Admin: 10/29/18 09:17 Dose: 40 mg Gabapentin (Neurontin) 300 mg PO HS [facility]; Protocol Last Admin: 10/29/18 21:06 Dose: 300 mg Hydromorphone HCl (Dilaudid) 0.5 mg IVP Q4H PRN PRN Reason: Pain, severe (8-10) Last Admin: 10/30/18 05:01 Dose: 0.5 mg Ketorolac Tromethamine (Toradol) 15 mg IVP Q6H [facility] Last Admin: 10/29/18 23:24 Dose: 15 mg Loratadine (Claritin) 10 mg PO DAILY PRN PRN Reason: Allergy symptoms Morphine Sulfate (Morphine) 4 mg IVP Q4 PRN PRN Reason: Pain, severe (8-10) Last Admin: 10/30/18 02:15 Dose: 4 mg Multivitamins (Thera Tab) 1 tab PO 0800 [facility] Last Admin: 10/29/18 09:18 Dose: 1 tab Ondansetron HCl (Zofran Inj) 4 mg IVP Q6H PRN PRN Reason: Nausea/Vomiting Last Admin: 10/30/18 05:37 Dose: 4 mg Ondansetron HCl (Zofran Inj) 4 mg IVP ONCE PRN PRN Reason: Nausea/Vomiting Pantoprazole Sodium (Protonix Ec Tab) 40 mg PO 0600 [facility] Last Admin: 10/30/18 05:01 Dose: 40 mg Polyethylene Glycol (Miralax) 17 gm PO BID [facility] Last Admin: 10/29/18 17:12 Dose: 17 gm Spironolactone (Aldactone) 50 mg PO DAILY [facility] Last Admin: 10/29/18 09:18 Dose: 50 mg - Labs Labs: 10/29/18 06:30 10/29/18 06:30 PT 12.3 SECONDS (9.4-12.5) 10/27/18 08:00 INR 1.09 10/27/18 08:00 APTT 24.2 Seconds (26.9-38.3) L 10/27/18 08:00 - Constitutional Appears: Non-toxic, No Acute Distress - Head Exam Head Exam: NORMAL INSPECTION, NORMOCEPHALIC - Eye Exam Eye Exam: Normal appearance Pupil Exam: NORMAL ACCOMODATION - ENT Exam ENT Exam: Mucous Membranes Moist - Respiratory Exam Respiratory Exam: Decreased Breath Sounds, Clear to Ausculation Bilateral, NORMAL BREATHING PATTERN - Cardiovascular Exam Cardiovascular Exam: +S1, +S2 - GI/Abdominal Exam GI & Abdominal Exam: Soft, Normal Bowel Sounds - Extremities Exam Additional comments: right arm/shoulder with sling - Neurological Exam Neurological Exam: Alert, Awake, Oriented x3 - Psychiatric Exam Psychiatric exam: Normal Affect, Normal Mood - Skin Skin Exam: Dry, Normal Color, Warm Assessment and Plan - Assessment and Plan (Free Text) Assessment: A 63 year old female who was brought to the ER due to right shoulder pain post fall. She was walking her dog when dog chased cat and caught off guard and causing her to fall landing on the right shoulder and right knee. Denies hitting her head but now complaining of right hip pain. History of multiple sclerosis, kidney stones post lithotrypsies, hyperthyroidism, ascites, liver cirrhosis, gastric bypass, chronic anemia, sacral decubitus, nephrolithiasis, sarcoidosis, depression,appendectomy, cholecystectomy bilateral knee surgery. Hospitalized last year 10/2017 for ascitis/liver cirrhosis and paracentesis done with 3 liters of fluid. Consult was called to clear for surgery. Right shoulder X ray done and showed right humerus minimally displaced fracture of the greater tuberosity of the proximal humerus, X-ray of the right knee: No fracture. Echo done on 04/19/17 showed Normal LV size, LVEF 50 %,Mild MR/TR, mild gloval LV hypokinesis. EKG showed NSR poor R progression V1-V4, non specific ST-T changes. Denies chest pain, denies shortness of breath. X ray of right hip normal, no fracture, tenderness at site. .Echo done and showed LVEF 55-60%, trace MR,mild TR, RVSP 37mmHg. Post transfusion of 2 units PRBC for low H/H, Physical therapy. Status post right ORIF of humerus shoulder POD # 3. Cardiac status stable. Pain management. Discharge planning, Plan: Feels severe right shoulder surgical pain Status post right ORIF of humerus shoulder POD#3 Pain management, PRN Dilaudid Cardiac status stable. Pain management Denies chest pain or shortness of breath Heart rate stable Blood pressure controlled On Tenormin 12.5 mg daily, Lasix 40 mg daily, Aldactone 50 mg daily Continue current treatment Continue current medications Fall precaution Physical therapy Discharge planning Will follow up Plan and treatment discussed with Dr. Willson
[2018-10-30] MEDS: Amylase/Lipase/Protease 5,000 Units ECC PO SCH ×2 (08:18→11:07)
[2018-10-30] MEDS: Multivitamin Therapeutic Tab PO SCH (08:18)
[2018-10-30 08:46] VITALS: O2SAT 94
[2018-10-30] MEDS: POLYETHYLENE GLYCOL 3350 17 GM/Dose PACKET PO SCH (09:48)
[2018-10-30] MEDS: Enoxaparin 30 mg Syringe SC SCH (09:49)
--- NOTE | 2018-10-30 10:04 | PN ---
DATE: 10/30/2018 FOLLOWUP REPORT LOCATION: Room 570, bed 1. SUBJECTIVE: The patient underwent ORIF of the right shoulder 4 days ago. Dressing is dry. She is in a shoulder sling, pain is not any worse than before. She complaints of back pain and other areas of the pain, but the shoulder pain is status quo and will keep the dressing off when she goes to the subacute rehab, hopefully it is going to be TCU .. i will Follow her there and change her dressing in a couple of days. Trey Sunshine DO MTDD
[2018-10-30 15:01] VITALS: BP 99/55; PULSE 73; RESP 98; TEMP 97.8
--- NOTE | 2018-10-30 17:06 | PN ---
DATE: 10/30/2018 SUBJECTIVE: The patient is a 63-year-old, seen and examined, sitting in chair, complain of intermittent electrical shock like feeling because of her MS, otherwise doing better, eating and tolerating. PHYSICAL EXAMINATION VITAL SIGNS: She is afebrile, pulse 74, respirations 20, and blood pressure 94/60. LUNGS: Bilateral fair airflow. No rhonchi or crackle. HEART: S1 and S2 audible. No murmur. ABDOMEN: Soft and nontender. No rebound. No guarding. NEUROLOGIC: The patient is awake and alert; able to communicate. Right arm is in the sling. LABORATORY EXAMINATION: There is no new lab available today. ASSESSMENT: 1. Status post fall. 2. Right humerus fracture, status post open reduction and internal fixation. 3. History of multiple sclerosis. 4. Acute on chronic anemia, status post blood transfusion. PLAN: We will start her on Duragesic patch daily, it will help her for multiple sclerosis and TCU evaluation has been requested. If accepted, she will be transferred to TCU today. Rad Onofre MD
--- NOTE | 2018-11-01 08:15 | RAD ---
Date of service: 10/26/2018 HISTORY: OR in AM COMPARISON: No prior. TECHNIQUE: 1 view obtained. FINDINGS: LUNGS: No active pulmonary disease. PLEURA: No significant pleural effusion identified, no pneumothorax apparent. CARDIOVASCULAR: No aortic atherosclerotic calcification present. Mild cardiomegaly no pulmonary vascular congestion. OSSEOUS STRUCTURES: No significant abnormalities. VISUALIZED UPPER ABDOMEN: Normal. OTHER FINDINGS: None. IMPRESSION: No active disease.
== END 2018-10-30 15:30 | DRG 493 ==
LOC: ED 14:01 → ERH 17:31 → 5RSO 21:25 → OBSVTOIN 10-23 12:12 → 5RNO 10-30 10:27
PROVIDERS: ADMIT Internal Medicine; ATTEND Internal Medicine
PROC: 30233N1 Transfusion of Nonautologous Red Blood Cells into Peripheral Vein, Percutaneous Approach (ICD-10-PCS; 2018-10-26)
PROC: 3E0T3BZ Introduction of Anesthetic Agent into Peripheral Nerves and Plexi, Percutaneous Approach (ICD-10-PCS; 2018-10-27)
PROC: 0PSC04Z Reposition Right Humeral Head with Internal Fixation Device, Open Approach (ICD-10-PCS; principal; 2018-10-27 09:30)
DX: S42.251A Displaced fracture of greater tuberosity of right humerus, initial encounter for closed fracture (principal); M80.821A Other osteoporosis with current pathological fracture, right humerus, initial encounter for fracture; R18.8 Other ascites; W01.0XXA Fall on same level from slipping, tripping and stumbling without subsequent striking against object, initial encounter; G35 Multiple sclerosis; D86.9 Sarcoidosis, unspecified; K74.60 Unspecified cirrhosis of liver; E05.90 Thyrotoxicosis, unspecified without thyrotoxic crisis or storm; M75.21 Bicipital tendinitis, right shoulder; S80.01XA Contusion of right knee, initial encounter; S80.211A Abrasion, right knee, initial encounter; K59.00 Constipation, unspecified; F32.9 Major depressive disorder, single episode, unspecified; D64.9 Anemia, unspecified; L89.152 Pressure ulcer of sacral region, stage 2; M15.9 Polyosteoarthritis, unspecified; Y93.K1 Activity, walking an animal; Y92.480 Sidewalk as the place of occurrence of the external cause; Z87.442 Personal history of urinary calculi; Z98.84 Bariatric surgery status

== ENCOUNTER 2018-10-30 15:36 | Inpatient (IN) | payer OTHER ==
[2018-10-30] MEDS ORDERED: Morphine 4 mg/ml ISec IVP PRN (16:05)
[2018-10-30 16:33] VITALS: BMI 24.8
[2018-10-30] MEDS: Amylase/Lipase/Protease 5,000 Units ECC PO SCH (17:12)
[2018-10-30] MEDS: POLYETHYLENE GLYCOL 3350 17 GM/Dose PACKET PO SCH ×2 (17:12→17:53)
[2018-10-30] MEDS: HYDROmorphone 0.5 mg/0.5 ml ISec IVP PRN (19:24)
[2018-10-30] MEDS: Morphine 4 mg/ml ISec IVP PRN (21:48)
[2018-10-30 22:39] VITALS: RESP 18
[2018-10-30] MEDS ORDERED: Pneumococcal 23-Valent Vaccine IM ONE (22:39)
[2018-10-31] MEDS: HYDROmorphone 0.5 mg/0.5 ml ISec IVP PRN ×5 (00:16→22:38)
[2018-10-31] MEDS: Enoxaparin 30 mg Syringe SC SCH (06:05)
[2018-10-31] MEDS: Pantoprazole 40 mg EC Tab PO SCH (06:07)
[2018-10-31] MEDS ORDERED: Multivitamin Therapeutic Tab PO SCH (08:00)
[2018-10-31] MEDS: Amylase/Lipase/Protease 5,000 Units ECC PO SCH ×3 (08:28→17:58)
[2018-10-31] MEDS: Morphine 4 mg/ml ISec IVP PRN ×3 (10:06→20:35)
[2018-10-31] MEDS: POLYETHYLENE GLYCOL 3350 17 GM/Dose PACKET PO SCH ×2 (10:46→17:58)
--- NOTE | 2018-10-31 18:34 | CON ---
DATE: 10/31/2018 ORTHOPEDIC CONSULTATION LOCATION: On the Transitional Care Unit floor. HISTORY OF PRESENT ILLNESS: A 63-year-old female who came into the [facility] initially on 10/22/2018 with a severely comminuted unstable fracture of the right proximal humerus. She underwent open reduction internal fixation at the hospital stay on 10/27/2018. She is presently doing well. Today, she is in the TCU floor, admitted here on 10/30/2018. The wound is dry. The Hemovac was removed and then she was started on elbow range of motion, but she has to stay in a sling for 4 to 6 weeks till the fracture unites. We will check here on the TCU for instructions and any therapy exercise which will involve no weight bearing on the right shoulder and no range of motion of the right shoulder other than the elbow can be moved and come out of the sling for that exercise; otherwise, has to stay in an arm sling with the arm at the side for 4 to 6 weeks because of the instability of the fracture of the greater tuberosity, used sutures to stabilize it when the screw kind of pulled out postop. So, we will get periodic x-rays of the right shoulder. She is SENSITIVE TO TAPE, so we put paper tape to cover the wound with a sterile gauze and with the Betadine swabbing. We will follow her closely. FINAL DIAGNOSES: Unstable fracture right proximal humerus, treated with an open reduction and internal fixation and a plate with screws and a suturing of the greater tuberosity. Trey Sunshine DO
--- NOTE | 2018-11-01 03:18 | HP ---
DATE OF EXAM: 10/31/2018 HISTORY OF PRESENT ILLNESS: The patient is a 63-year-old who was walking her dog who saw the cat and wanted to attack, pulled her down and she fell on her right side sustaining injury and she was brought to emergency room and was found that she has nondisplaced humeral fracture. The patient was admitted, initial plan was to do open reduction and internal fixation. She went for echo, she states she pushed to esqueda on her injured arm and felt that it has become more painful after that procedure, so she had a repeat CAT scan done that shows displaced humeral fracture, so she underwent open reduction and internal fixation and transferred to TCU for rehab. PAST MEDICAL HISTORY: She has significant past medical history of: 1. Hypertension. 2. Chronic anemia. 3. Multiple sclerosis. 4. History of sarcoidosis. 5. Cirrhosis of liver. ALLERGIES: SHE IS ALLERGIC TO: 1. BLACK PEPPER. 2. CODEINE. 3. PENICILLIN. 4. SULFA. MEDICATIONS: As per AUG. PHYSICAL EXAMINATION: GENERAL: She is awake, alert, and able to communicate. VITAL SIGNS: She is afebrile, pulse 72, respirations 18, and blood pressure 98/66. LUNGS: Bilateral fair airflow. No rhonchi or crackle. HEART: S1 and S2 audible. ABDOMEN: Soft and nontender. No rebound. No guarding. NEUROLOGIC: The patient is awake, alert, and able to communicate. LABORATORY DATA: She has no new laboratory available today. Right arm is in the sling. ASSESSMENT: 1. Status post fall. 2. Right humeral fracture, status post open reduction and internal fixation. 3. Chronic anemia. 4. Multiple sclerosis. 5. Sarcoidosis. PLAN: We will continue the patient on current medication. She feels nauseous when she takes multivitamin and oral iron, so we will discontinue that. We will give her intermittently from tomorrow. We will continue laxative. Follow up the patient in a.m. Rad Onofre MD
[2018-11-01] MEDS: Enoxaparin 30 mg Syringe SC SCH (05:46)
[2018-11-01] MEDS: Pantoprazole 40 mg EC Tab PO SCH (05:46)
[2018-11-01] MEDS: HYDROmorphone 0.5 mg/0.5 ml ISec IVP PRN ×3 (06:09→20:19)
[2018-11-01] MEDS: Amylase/Lipase/Protease 5,000 Units ECC PO SCH ×3 (07:59→17:30)
[2018-11-01] MEDS: Morphine 4 mg/ml ISec IVP PRN ×2 (10:06→16:34)
[2018-11-01] MEDS: POLYETHYLENE GLYCOL 3350 17 GM/Dose PACKET PO SCH ×2 (10:10→17:37)
[2018-11-02] MEDS: HYDROmorphone 0.5 mg/0.5 ml ISec IVP PRN ×3 (00:04→12:21)
--- NOTE | 2018-11-02 00:10 | PN ---
DATE: 10/30/2018 SUBJECTIVE: The patient is a 63-year-old seen and examined, complain of pain in the right shoulder area, also complain of generalized weakness. Eating and tolerating. PHYSICAL EXAMINATION VITAL SIGNS: She is afebrile, pulse 74, respirations 18, blood pressure 130/65. LUNGS: Bilateral fair airflow. No rhonchi or crackles. HEART: S1, S2 audible. ABDOMEN: Soft, nontender. No rebound. No guarding. NEUROLOGIC: She is awake and alert. Able to communicate. ASSESSMENT: 1. Status post fall. 2. Right humerus fracture. 3. Status post open reduction and internal fixation. 4. History of multiple sclerosis. 5. Peptic ulcer disease. 6. Chronic anemia. PLAN: I will order for CBC, CMP tomorrow. Will start her on Ultracet for breakthrough pain. Encourage physical therapy. Will follow up this patient in a.m. Rad Onofre MD
[2018-11-02] MEDS: Morphine 4 mg/ml ISec IVP PRN ×4 (02:02→20:27)
[2018-11-02] MEDS: Pantoprazole 40 mg EC Tab PO SCH (06:17)
[2018-11-02] MEDS: Enoxaparin 30 mg Syringe SC SCH (06:18)
[2018-11-02] MEDS: TraMADol/Apap 37.5/325 mg Tab PO PRN ×2 (06:22→17:27)
[2018-11-02 07:53] LABS: ALB/GLOB RATIO 0.9 (1.1-1.8); ALBUMIN 2.7 g/dL (3.0-4.8); ALT/SGPT 17 U/L (7-56); AST/SGOT 32 U/L (14-36); BLOOD UREA NITROGEN 27 mg/dL (7-21); CALCIUM 7.6 mg/dL (8.4-10.5); GFR NON-AFRICAN AMERICAN > 60
[2018-11-02] MEDS: Amylase/Lipase/Protease 5,000 Units ECC PO SCH ×3 (08:23→17:20)
[2018-11-02] MEDS: POLYETHYLENE GLYCOL 3350 17 GM/Dose PACKET PO SCH ×2 (10:44→17:20)
[2018-11-03] MEDS: TraMADol/Apap 37.5/325 mg Tab PO PRN ×2 (00:21→10:23)
[2018-11-03] MEDS: Morphine 4 mg/ml ISec IVP PRN (01:39)
[2018-11-03] MEDS: HYDROmorphone 0.5 mg/0.5 ml ISec IVP PRN (05:44)
[2018-11-03] MEDS: Enoxaparin 30 mg Syringe SC SCH (05:51)
[2018-11-03] MEDS: Pantoprazole 40 mg EC Tab PO SCH (06:54)
[2018-11-03] MEDS: Amylase/Lipase/Protease 5,000 Units ECC PO SCH ×3 (08:00→16:51)
--- NOTE | 2018-11-03 08:28 | PN ---
DATE: 11/02/2018 SUBJECTIVE: Patient is a 63-year-old, seen and examined. Complains of pain in the right arm especially when she moves a little, eating and tolerating. PHYSICAL EXAMINATION: VITAL SIGNS: She is afebrile. Pulse 50, respirations 18, and blood pressure 106/72. LUNGS: Bilateral fair airflow. No rhonchi or crackle. HEART: S1 and S2 audible. ABDOMEN: Soft and nontender. No rebound. No guarding. NEUROLOGIC: The patient is awake and alert; able to communicate, ambulatory. LABORATORY EXAMINATION: Sodium 137, potassium 4.7, chloride 107, CO2 of 25, BUN 27, creatinine 0.6. Blood sugar of 101. LFTs are within normal limits. ASSESSMENT: 1. Status post fall. 2. Right humerus fracture. 3. Status post open reduction and internal fixation. 4. Sarcoidosis. 5. Multiple sclerosis. 6. Chronic anemia. PLAN: Patient's medications reviewed. We will continue on current medication. Encourage ambulation. We will follow up patient in a.m. Rad Onofre MD
[2018-11-03] MEDS: POLYETHYLENE GLYCOL 3350 17 GM/Dose PACKET PO SCH ×2 (10:24→17:33)
[2018-11-03] MEDS: Oxycodone/Acetaminophen 10/325 mg Tab PO PRN ×3 (12:05→21:51)
--- NOTE | 2018-11-03 14:00 | PN ---
DATE: 11/03/2018 SUBJECTIVE: The patient is 63 years old complains of pain in the surgical site. She stayed after therapy yesterday. She is hurting since then. Pain medication is not working more pain medication. PHYSICAL EXAMINATION: GENERAL: She is awake and alert, able to communicate. VITAL SIGNS: She is afebrile. Pulse 84, respirations 20, blood pressure 99/63. LUNGS: Bilateral fair airflow. No rhonchi or crackles. HEART: S1 and S2 audible. ABDOMEN: Soft and nontender. No rebound. No guarding. NEUROLOGIC: She is awake and alert, able to communicate. Right arm is in the sling. ASSESSMENT AND PLAN: 1. Status post fall. 2. Right humeral fracture. 3. History of gastric bypass. 4. Cirrhosis of liver. 5. Hypotension. 6. Chronic anemia. 7. History of multiple sclerosis. 8. Sarcoidosis. PLAN: We will discontinue IV morphine and Dilaudid. We will start her on Percocet as needed. She is asking for some pain medications we will give her 0.25 mg of Xanax at bedtime. Rad Onofre MD
[2018-11-04] MEDS: Oxycodone/Acetaminophen 10/325 mg Tab PO PRN ×3 (02:53→20:43)
[2018-11-04] MEDS: Pantoprazole 40 mg EC Tab PO SCH (06:11)
[2018-11-04] MEDS: Enoxaparin 30 mg Syringe SC SCH (06:11)
[2018-11-04] MEDS: Amylase/Lipase/Protease 5,000 Units ECC PO SCH ×3 (08:34→17:38)
[2018-11-04] MEDS: POLYETHYLENE GLYCOL 3350 17 GM/Dose PACKET PO SCH ×2 (11:02→17:38)
--- NOTE | 2018-11-04 12:46 | RAD ---
Date of service: 11/04/2018 PROCEDURE: Radiographs of the Right Shoulder HISTORY: pain COMPARISON: 10/27/2018 TECHNIQUE: 3 views obtained. FINDINGS: BONES: There is redemonstration of postsurgical changes of open reduction and internal fixation of acute displaced fracture in the right humeral neck and greater tuberosity. There is diffuse bone demineralization. No acute hardware complications. JOINTS: There is mild inferior subluxation of the humeral head. There widening of the subacromion space. The acromioclavicular joint is normal. SOFT TISSUES: Normal. OTHER FINDINGS: None. IMPRESSION: Redemonstration of open reduction and internal fixation of acute displaced fracture in neck of the humerus extending to the greater tuberosity. No evidence for hardware complications. Apparent inferior subluxation of the glenohumeral joint.
--- NOTE | 2018-11-04 22:35 | PN ---
DATE: 11/04/2018 SUBJECTIVE: The patient is 63 years old. Seen and examined. Complaining of pain. She states her pain has not subsided with Percocet. Denies any nausea or vomiting. PHYSICAL EXAMINATION: VITAL SIGNS: She is afebrile. Pulse 84, respirations 18, blood pressure 96/63. LUNGS: Bilateral fair air flow. No rhonchi or crackle. HEART: S1 and S2 audible. ABDOMEN: Soft, nontender. No rebound. No guarding. She is moving her bowels. Eating and tolerating well. NEUROLOGIC: She is awake and alert, able to communicate. EXTREMITIES: Right arm is in the sling. Bilateral legs have no edema. ASSESSMENT AND PLAN: 1. Status post fall. 2. Right humerus fracture, status post open reduction and internal fixation. 3. History of sarcoidosis. 4. Multiple sclerosis. 5. Chronic anemia. PLAN: We will discontinue her Percocet and start her on Dilaudid because she says she will feel better relief with Dilaudid. She is on fentanyl patch. We will continue that as per Dr. Sunshine. She seems to be satisfied with surgical intervention that was done. Rad Onofre MD
[2018-11-05] MEDS: Oxycodone/Acetaminophen 10/325 mg Tab PO PRN ×3 (05:01→21:32)
[2018-11-05] MEDS: Enoxaparin 30 mg Syringe SC SCH (05:02)
[2018-11-05] MEDS: Pantoprazole 40 mg EC Tab PO SCH (05:02)
[2018-11-05] MEDS: Amylase/Lipase/Protease 5,000 Units ECC PO SCH ×3 (07:56→18:04)
[2018-11-05] MEDS: POLYETHYLENE GLYCOL 3350 17 GM/Dose PACKET PO SCH ×2 (11:38→18:04)
--- NOTE | 2018-11-05 12:59 | PN ---
DATE: 11/05/2018 LOCATION: Room 315, bed 1. The patient underwent ORIF of her right shoulder fracture on 10/27/2018. She is doing well. The last x-ray two days ago showed it to be in good position with the plate in the fracture and the hardware and the greater tuberosity in high-grade posturing is being held by sutures. We will avoid active range of motion and just do range of motion of her right elbow while in the sling and she is not to do any rotationally until the fracture gets more sticky and starts healing and not to put weight on the right shoulder. Hopefully, she can go home and continue the same. I will follow her every week or two until the fracture gets more stable, then she can move it. We will get periodic x-rays. Trey Sunshine DO
--- NOTE | 2018-11-05 16:32 | PN ---
DATE: 11/05/2018 SUBJECTIVE: The patient has no complaints of any chest pain. No shortness of breath. No headaches. PHYSICAL EXAMINATION: VITAL SIGNS: Temperature is 97.9, pulse is 74, blood pressure is 101/66 and respirations are 18. GENERAL: The patient is lying in bed, flat, comfortable. HEENT: No oral lesion. Anicteric sclerae. Moist mucosa. NECK: No JVD, adenopathy, or thyromegaly. CARDIOVASCULAR: S1 and S2, regular. No murmurs, rubs, or gallops. LUNGS: Clear to auscultation bilaterally. No wheeze, rales, or rhonchi. ABDOMEN: Bowel sounds are positive, soft, nontender and nondistended. EXTREMITIES: No cyanosis, clubbing or edema. LABORATORY DATA: Creatinine is 0.6. Sodium is 137 and potassium is 4.7. Right shoulder x-ray, no evidence for hardware complications. There is an open . ASSESSMENT: 1. Fall. 2. Right humerus fracture, status post open reduction and internal fixation. 3. Sarcoidosis. 4. Multiple sclerosis. 5. Chronic anemia. PLAN: The patient is currently on Aldactone, this will be continued. The patient had an episode of fall in the bathroom. The patient is on Claritin. She is on Dilaudid for pain. The patient is on fentanyl patch for pain. The patient is going to continue on Lovenox for DVT prophylaxis. She is on MiraLax for constipation. She is on Tylenol for pain as well. She is on Xanax for anxiety. She is on a regular diet. The patient is complaining of right elbow pain. She is waiting to speak with Dr. Sunshine. Eric Wasserman MD
[2018-11-06] MEDS: Oxycodone/Acetaminophen 10/325 mg Tab PO PRN ×4 (05:20→22:51)
[2018-11-06] MEDS: Enoxaparin 30 mg Syringe SC SCH (05:21)
[2018-11-06] MEDS: Pantoprazole 40 mg EC Tab PO SCH (06:31)
[2018-11-06] MEDS: Amylase/Lipase/Protease 5,000 Units ECC PO SCH ×3 (08:04→17:22)
[2018-11-06] MEDS: POLYETHYLENE GLYCOL 3350 17 GM/Dose PACKET PO SCH ×2 (11:44→17:23)
--- NOTE | 2018-11-06 16:11 | RAD ---
Date of service: 11/06/2018 PROCEDURE: Radiographs of the right elbow. HISTORY: elbow and lower arm pain COMPARISON: No prior. TECHNIQUE: 3 views obtained. FINDINGS: BONES: Bone alignment and mineralization are normal. There is no acute displaced fracture or bone destruction. JOINTS: Normal. No osteoarthritis. SOFT TISSUES: Normal. JOINT EFFUSION: None. OTHER FINDINGS: None. IMPRESSION: No acute displaced fracture or dislocation.
--- NOTE | 2018-11-07 00:34 | DS ---
HISTORY OF PRESENT ILLNESS: The patient is 63-year-old, seen and examined. The patient fell at home while she states her dog saw a cat, got excited, pulled her down and she fell on her right side sustaining injury to her right humerus and underwent open reduction and internal fixation. The patient does have a history of sarcoidosis and multiple sclerosis. She seems to be deconditioned and not comfortable to so, she is being sent to [facility] for further rehab. Complained of pain in the right forearm and right shoulder. No nausea or vomiting. Eating and tolerating. PHYSICAL EXAMINATION: VITAL SIGNS: She is afebrile, pulse 76, respirations 18 and blood pressure 100/52. LUNGS: Bilateral fair airflow. No rhonchi or crackles. HEART: S1 and S2 audible. ABDOMEN: Soft and nontender. No rebound. No guarding. NEUROLOGIC: She is awake and alert, able to communicate and ambulate. Right arm is in the sling. ASSESSMENT: 1. Status post fall. 2. Status post humerus fracture. 3. Open reduction and internal fixation. 4. Chronic anemia. 5. Multiple sclerosis. 7. Sarcoidosis. 8. History of ascites. PLAN: We will get x-ray of her right elbow and forearm and she will be discharged to [facility] for further rehab. Rad Onofre MD
[2018-11-07] MEDS: Enoxaparin 30 mg Syringe SC SCH (05:29)
[2018-11-07] MEDS: Pantoprazole 40 mg EC Tab PO SCH (05:30)
[2018-11-07 07:21] LABS: BASO # 0.05 K/mm3 (0.0-2.0); BASO % 0.8 % (0.0-3.0); EOS # 0.2 (0.0-0.7); EOS % 3.2 % (1.5-5.0); HEMOGLOBIN 9.3 g/dL (12.0-16.0); MEAN CELL VOLUME 93.5 fl (80.0-105.0); MEAN CORPUSCULAR HEMOGLOBIN 27.5 pg (25.0-35.0); MEAN CORPUSCULAR HGB CONC 29.4 g/dl (31.0-37.0); MEAN PLATELET VOLUME 8.4 fl (7.0-11.0); MONO # 0.6 (0.1-0.6); MONO % 9.2 % (1.0-6.0); RBC 3.38 10^6/uL (3.5-6.1); RED CELL DISTRIBUTION WIDTH 18.9 % (11.5-14.5); WHITE BLOOD COUNT 6.2 10^3/uL (4.5-11.0)
[2018-11-07] MEDS: Oxycodone/Acetaminophen 10/325 mg Tab PO PRN (07:29)
[2018-11-07] MEDS: Amylase/Lipase/Protease 5,000 Units ECC PO SCH ×2 (08:01→12:16)
[2018-11-07] MEDS: POLYETHYLENE GLYCOL 3350 17 GM/Dose PACKET PO SCH (10:11)
[2018-11-07 10:12] VITALS: BP 94/61; PULSE 72
[2018-11-07 11:40] VITALS: TEMP 97.8; O2SAT 96
--- NOTE | 2018-11-08 01:28 | DS ---
HISTORY OF PRESENT ILLNESS: The patient is 63 years old, seen and examined, complained of pain in the right shoulder and right forearm. Eating and tolerating. No nausea, vomiting or diarrhea. PHYSICAL EXAMINATION: VITAL SIGNS: Afebrile, pulse 72, respirations 18, blood pressure 94/61. LUNGS: Bilateral fair airflow. No rhonchi or crackle. HEART: S1, S2 audible. ABDOMEN: Soft, nontender. No rebound. No guarding. NEUROLOGIC: She is awake and alert, able to communicate. EXTREMITIES: Right arm is in the sling. LABORATORY DATA: WBC 6.2, hemoglobin 9.3, hematocrit 31.6, platelets 354. X-ray of the elbow done shows no acute displaced fracture. PLAN: The patient is clinically stable. She is being transferred to [facility] for further rehab and gait training. I will follow up the patient in [facility]. Rad Onofre MD
== END 2018-11-07 13:48 | DRG 561 ==
LOC: TRCU 15:36
PROVIDERS: ADMIT Internal Medicine; ATTEND Internal Medicine
PROC: F07Z9FZ Gait Training/Functional Ambulation Treatment using Assistive, Adaptive, Supportive or Protective Equipment (ICD-10-PCS; principal; 2018-11-01)
PROC: F07Z8FZ Transfer Training Treatment using Assistive, Adaptive, Supportive or Protective Equipment (ICD-10-PCS; 2018-11-01)
PROC: F07L6YZ Therapeutic Exercise Treatment of Musculoskeletal System - Lower Back / Lower Extremity using Other Equipment (ICD-10-PCS; 2018-11-01)
PROC: F08Z1FZ Dressing Techniques Treatment using Assistive, Adaptive, Supportive or Protective Equipment (ICD-10-PCS; 2018-11-01)
DX: S42.201D Unspecified fracture of upper end of right humerus, subsequent encounter for fracture with routine healing (principal); G35 Multiple sclerosis; I10 Essential (primary) hypertension; D64.9 Anemia, unspecified; D86.9 Sarcoidosis, unspecified; K74.60 Unspecified cirrhosis of liver; K27.9 Peptic ulcer, site unspecified, unspecified as acute or chronic, without hemorrhage or perforation; I95.9 Hypotension, unspecified; W19.XXXD Unspecified fall, subsequent encounter; Y93.K1 Activity, walking an animal; Z98.84 Bariatric surgery status